=== PATIENT | male | born 1950 | race Caucasian/White ===

== ENCOUNTER → 2016-02-20 | Outpatient (CLI) | payer BC ==
[~2016-02-20] MED LIST: APIX1TAB3 PO; ATEN100T PO; CHOL100027 PO; CNT PO; CRDCD180 PO; CRFUDL PO; CYAN500T13 PO; DILT-113 PO; FLV1 PO; FRS/40 PO; FURO40TA3 PO; IPRA1AER2 INH; LBR25 PO; LISI-729 PO; LISI20TA3 PO; LSX20 PO; MCRK20 PO; METO5TAB25 PO; MISC1CAP60 PO; MULT-506 PO; NCDT21X TOP; NICO21DI4 TOP; PANT40TA PO; POTA-65 PO; POTA20TA16 PO; PRED10TA PO; PRT/40 PO; PRT40 PO; SODI1TAB PO; SPR25 PO; TNR50 PO; ZRX5 PO
[2016-02-20 12:57] LABS: BLOOD UREA NITROGEN 4 mg/dl (7-18); BUN/CREATININE RATIO 6.5 (10-20); CALCIUM 8.6 mg/dl (8.5-10.1); CARBON DIOXIDE 28 mmol/L (21-32); CHLORIDE 96 mmol/L (98-107); CREATININE 0.54 mg/dl (0.60-1.40); GLUCOSE 93 mg/dl (70-99); PHOSPHORUS 3.5 mg/dl (2.5-4.9); POTASSIUM 4.2 mmol/L (3.5-5.1); SODIUM 134 mmol/L (136-145)
== END | disposition home or self-care (01) ==
LOC: C.LABBFT 11:34
PROVIDERS: ATTEND Internal Medicine Nephrology
DX: E87.1 Hypo-osmolality and hyponatremia (principal)

== ENCOUNTER → 2016-04-17 | Outpatient (CLI) | payer BC ==
[~2016-04-17] MED LIST changes: +PANT40TA2 PO; -PRT/40 PO
[2016-04-17 17:33] LABS: BASO % 1.6 %; BASO ABS # 0.09 K/uL (0-0.2); COMPLETE YES; EOS % 3.2 %; IG% 0.2 %; LYMPH % 29.4 %; LYMPH ABS # 1.65 K/uL (1.2-3.4); MEAN CELL VOLUME 95.4 fL (80-100); MEAN CORPUSCULAR HEMOGLOBIN 33.5 pg (25-34); MEAN CORPUSCULAR HGB CONC 35.2 g/dl (32-36); MEAN PLATELET VOLUME 10.8 fL (7.4-10.4); NEUT % 49.6 %; PLATELET COUNT 174 K/uL (130-400); RED BLOOD COUNT 3.25 M/uL (4.7-6.1); WHITE BLOOD COUNT 5.61 K/uL (4.8-10.8)
[2016-04-17 18:19] LABS: BLOOD UREA NITROGEN 5 mg/dl (7-18); BUN/CREATININE RATIO 8.8 (10-20); CALCIUM 8.3 mg/dl (8.5-10.1); CARBON DIOXIDE 24 mmol/L (21-32); CHLORIDE 93 mmol/L (98-107); CREATININE 0.53 mg/dl (0.60-1.40); GLUCOSE 93 mg/dl (70-99); PHOSPHORUS 3.3 mg/dl (2.5-4.9); POTASSIUM 4.2 mmol/L (3.5-5.1); SODIUM 130 mmol/L (136-145)
== END | disposition home or self-care (01) ==
LOC: C.LABBFT 14:57
PROVIDERS: ATTEND Internal Medicine Nephrology
DX: E87.1 Hypo-osmolality and hyponatremia (principal); R19.5 Other fecal abnormalities

== ENCOUNTER 2016-04-23 13:40 | Inpatient (IN) | payer BC, OTHER ==
[~2016-04-23] VITALS: Ht 170.2 cm; Wt 117.2 kg
[2016-04-23] VITALS (10 sets, daily range): BP systolic 103–121; BP diastolic 59–84; PULSE 98–115; TEMP 36.5–37.2; O2SAT 98–100; Ht 170.2 cm; Wt 117.2 kg
[~2016-04-23 13:40] MED LIST changes: -ATEN100T PO; -CNT PO; -CRDCD180 PO; -DILT-113 PO; -FRS/40 PO; -FURO40TA3 PO; -IPRA1AER2 INH; -LISI20TA3 PO; -LSX20 PO; -MCRK20 PO; -METO5TAB25 PO; -MULT-506 PO; -NCDT21X TOP; -NICO21DI4 TOP; -PANT40TA PO; -PANT40TA2 PO; -POTA-65 PO; -POTA20TA16 PO; -PRED10TA PO; -PRT40 PO; -SODI1TAB PO; -SPR25 PO; -ZRX5 PO
[2016-04-23] MEDS ORDERED: LSX20 PO (13:52)
[2016-04-23] MEDS ORDERED: ALBUT/IPRATROP 3MG/0.5MG NEB 3 ML VIAL INH STA (14:04)
--- NOTE | 2016-04-23 14:16 | DIAGNOSTIC IMAGING REPORT ---
CHEST ONE VIEW PORTABLE HISTORY: Short of breath. COMPARISON: Chest 01/29/2015. FINDINGS: No pleural effusions. No pneumothorax. There are few punctate calcified granuloma seen within the right lower lobe. The lungs are otherwise clear. The heart is mildly enlarged. This remains unchanged. IMPRESSION: Stable mild cardiomegaly. No acute process within the chest. Electronically signed by: Alek Roblero M.D. 04/23/2016 2:15 PM Dictated Date/Time: 04/23/2016 2:14 PM
[2016-04-23 14:25] LABS: INR 1.4 (0.9-1.1); PROTHROMBIN TIME (PATIENT) 14.9 SECONDS (9.0-12.0)
[2016-04-23 14:30] LABS: HEMATOCRIT 20.8 % (42-52); MEAN CELL VOLUME 95.9 fL (80-100); MEAN CORPUSCULAR HEMOGLOBIN 33.6 pg (25-34); MEAN CORPUSCULAR HGB CONC 35.1 g/dl (32-36); MEAN PLATELET VOLUME 9.9 fL (7.4-10.4); PLATELET COUNT 187 K/uL (130-400); RED BLOOD COUNT 2.17 M/uL (4.7-6.1); WHITE BLOOD COUNT 7.26 K/uL (4.8-10.8)
[2016-04-23 14:36] LABS: ALT/SGPT 34 U/L (12-78); BLOOD UREA NITROGEN 13 mg/dl (7-18); BUN/CREATININE RATIO 19.9 (10-20); CALCIUM 8.1 mg/dl (8.5-10.1); CARBON DIOXIDE 26 mmol/L (21-32); CHLORIDE 94 mmol/L (98-107); CREATININE 0.67 mg/dl (0.60-1.40); GLUCOSE 122 mg/dl (70-99); POTASSIUM 4.3 mmol/L (3.5-5.1); SODIUM 130 mmol/L (136-145)
[2016-04-23] MEDS ORDERED: SODIUM CHLORIDE 0.9% 1000ML 1,000 ML IV STA (14:36)
[2016-04-23 14:39] LABS: ALB/GLOB RATIO 0.8 (0.9-2); ALKALINE PHOSPHATASE 112 U/L (45-117); AST/SGOT 66 U/L (15-37)
[2016-04-23 14:53] LABS: BASO % 0.7 %; BASO ABS # 0.05 K/uL (0-0.2); COMPLETE YES; GIANT PLATELETS 1+; IG% 0.3 %; LYMPH % 15.4 %; LYMPH ABS # 1.12 K/uL (1.2-3.4); MONO % 11.2 %; NEUT % 71.4 %; POLYCHROMASIA 1+
--- NOTE | 2016-04-23 14:55 | EMERGENCY ROOM VISIT NOTE ---
History Report prepared by Nick: Linda Vazquez Under the Supervision of: Dr. José Miguel Falcon M.D. First contact with patient: 14:36 Chief Complaint: SHORTNESS OF BREATH Stated Complaint: SOB Nursing Triage Summary: pt. has felt SOB for months, cough, pt. doctor told him to make appt. or come to ed pt. was suspsed to have colonoscopy yesterday, reports dark stools, has been rescheduled for may 09, History of Present Illness The patient is a 65 year old male who presents to the Emergency Room with complaints of worsening shortness of breath over the past several months. It is worse with exertion. He has difficulty walking around secondary to his breathing difficulties. He also complains of a somewhat increased cough, lightheadedness and black stool. He notes that he had a bowel movement that was "jet black" this morning. His stool this morning was the darkest it has been since the onset of his symptoms. The patient told his PCP about his symptoms and was referred to the ER. The patient is on Eliquis for a history of a-fib. He takes the Eliquis twice a day and did take his dose this morning, but has not taken his second dose. He does not use Prilosec or Zantac. He reports a history of anemia and GI bleeding. Source of History: patient Onset: several months ago Position: other (respiratory) Quality: other (shortness of breath) Timing: worsening Modifying Factors (Worsening): exertion Associated Symptoms: + cough, + melena Note: Other symptoms: lightheadedness Review of Systems See HPI for pertinent positives & negatives. A total of 10 systems reviewed and were otherwise negative. Past Medical & Surgical Medical Problems: (1) Atrial Fibrillation (2) Cellulitis of leg (3) Chest pain (4) COPD exacerbation (5) Hypertension Nos (6) Pure Hypercholesterolem (7) Tobacco Use Disorder Family History Hypertension Social History Smoking Status: Current Every Day Smoker Alcohol Use: none Drug Use: none Marital Status: Occupation Status: employed Current/Historical Medications Scheduled Apixaban (Eliquis), 5 MG PO BIDM Atenolol (Tenormin), 100 MG PO BID Folic Acid (Folic Acid), 7 MG PO QAM Furosemide (Furosemide), 20 MG PO BID Lisinopril (Zestril), 5 MG PO DAILY Allergies Coded Allergies: No Known Allergies (Unverified , 01/29/15) Physical Exam Vital Signs Date Time Temp Pulse Resp B/P Pulse Ox O2 Delivery O2 Flow Rate FiO2 04/23/16 16:45 36.7 102 18 115/75 100 04/23/16 16:22 36.9 100 16 103/69 99 04/23/16 15:39 86 16 111/62 99 Room Air 04/23/16 14:24 37.0 112 28 104/57 95 Room Air 04/23/16 14:24 37.0 112 25 104/57 99 Room Air 04/23/16 14:24 100 Room Air 04/23/16 13:59 92 Physical Exam GENERAL: Patient is in no acute distress. HEENT: No acute trauma, normocephalic atraumatic, mucous membranes moist, no nasal congestion, no scleral icterus. NECK: No stridor, no adenopathy, no meningismus, trachea is midline. LUNGS: Clear to auscultation bilaterally, no wheeze, no rhonchi, breath sounds equal. HEART: Irregular rhythm with a regular rate, no murmurs. ABDOMEN: Soft, nontender, bowel sounds positive, no hernias, no peritonitis. RECTAL: Black stool, heme positive by testing. EXTREMITIES: No cyanosis, mild bilateral pedal edema with chronic skin change, no acute cellulitis, full range of motion of all the joints without pain or difficulty, no signs for acute trauma. NEUROLOGIC: Oriented x 3, no acute motor or sensory deficits, no focal weakness. SKIN: No rash, no jaundice, no diaphoresis. Medical Decision & Procedures ER Provider Diagnostic Interpretation: Radiology results and stated below per my review and radiologist interpretation: CHEST ONE VIEW PORTABLE HISTORY: Short of breath. COMPARISON: Chest 01/29/2015. FINDINGS: No pleural effusions. No pneumothorax. There are few punctate calcified granuloma seen within the right lower lobe. The lungs are otherwise clear. The heart is mildly enlarged. This remains unchanged. IMPRESSION: Stable mild cardiomegaly. No acute process within the chest. Electronically signed by: Alek Roblero M.D. 04/23/2016 2:15 PM Dictated Date/Time: 04/23/2016 2:14 PM Laboratory Results 04/23/16 14:00 Red Blood Count 2.17, Mean Corpuscular Volume 95.9, Mean Corpuscular Hemoglobin 33.6, Mean Corpuscular Hemoglobin Concent 35.1, Mean Platelet Volume 9.9, Neutrophils (%) (Auto) 71.4, Lymphocytes (%) (Auto) 15.4, Monocytes (%) (Auto) 11.2, Eosinophils (%) (Auto) 1.0, Basophils (%) (Auto) 0.7, Neutrophils # (Auto ) 5.19, Lymphocytes # (Auto) 1.12, Monocytes # (Auto) 0.81, Eosinophils # (Auto ) 0.07, Basophils # (Auto) 0.05 04/23/16 14:00 Test 04/23/16 14:00 04/23/16 14:09 White Blood Count 7.26 K/uL (4.8-10.8) Red Blood Count 2.17 M/uL (4.7-6.1) Hemoglobin 7.3 g/dL (14.0-18.0) Hematocrit 20.8 % (42-52) Mean Corpuscular Volume 95.9 fL (80-100) Mean Corpuscular Hemoglobin 33.6 pg (25-34) Mean Corpuscular Hemoglobin Concent 35.1 g/dl (32-36) Platelet Count 187 K/uL (130-400) Mean Platelet Volume 9.9 fL (7.4-10.4) Neutrophils (%) (Auto) 71.4 % Lymphocytes (%) (Auto) 15.4 % Monocytes (%) (Auto) 11.2 % Eosinophils (%) (Auto) 1.0 % Basophils (%) (Auto) 0.7 % Neutrophils # (Auto) 5.19 K/uL (1.4-6.5) Lymphocytes # (Auto) 1.12 K/uL (1.2-3.4) Monocytes # (Auto) 0.81 K/uL (0.11-0.59) Eosinophils # (Auto) 0.07 K/uL (0-0.5) Basophils # (Auto) 0.05 K/uL (0-0.2) RDW Standard Deviation 50.9 fL (36.4-46.3) RDW Coefficient of Variation 14.6 % (11.5-14.5) Immature Granulocyte % (Auto) 0.3 % Immature Granulocyte # (Auto) 0.02 K/uL (0.00-0.02) Giant Platelets 1+ Polychromasia 1+ Basophilic Stippling 1+ Prothrombin Time 14.9 SECONDS (9.0-12.0) Prothromb Time International Ratio 1.4 (0.9-1.1) Activated Partial Thromboplast Time 27.0 SECONDS (21.0-31.0) Partial Thromboplastin Ratio 1.0 Anion Gap 10.0 mmol/L (3-11) Est Creatinine Clear Calc Drug Dose 131.1 ml/min Estimated GFR () 116.0 Estimated GFR (Non- 100.1 BUN/Creatinine Ratio 19.9 (10-20) Calcium Level 8.1 mg/dl (8.5-10.1) Total Bilirubin 1.5 mg/dl (0.2-1) Aspartate Amino Transf (AST/SGOT) 66 U/L (15-37) Alanine Aminotransferase (ALT/SGPT) 34 U/L (12-78) Alkaline Phosphatase 112 U/L (45-117) Total Protein 6.1 gm/dl (6.4-8.2) Albumin 2.7 gm/dl (3.4-5.0) Globulin 3.4 gm/dl (2.5-4.0) Albumin/Globulin Ratio 0.8 (0.9-2) Bedside Troponin I 0.000 ng/ml (0-0.045) Laboratory results reviewed by me. Medications Administered Medications (Trade) Dose Ordered Sig/Anali Route Start Time Stop Time Status Last Admin Dose Admin Sodium Chloride 1,000 ml @ 125 mls/hr Q8H STAT IV 04/23/16 14:36 04/23/16 22:35 04/23/16 15:36 125 MLS/HR Pantoprazole Sodium 80 mg/ Dextrose 120 ml @ 480 mls/hr 1500 IV 04/23/16 15:00 04/23/16 15:14 DC 04/23/16 15:37 480 MLS/HR Pantoprazole Sodium/Dextrose (Protonix Inj/D5 100ml) 100 ml @ 20 mls/hr Q5H IV 04/23/16 15:15 04/23/16 20:14 04/23/16 16:04 20 MLS/HR ECG Indication: SOB/dyspnea Rate (beats per minute): 101 Rhythm: atrial fibrillation Findings: no acute ischemic change, no ectopy ED Course 1436: Ordered Protonix IV Bolus/Drip 1 ea IV, NSS 1000 ml @ 125 mls/hr IV. 1441: The patient was evaluated in room A2. A complete history and physical exam was performed. I discussed results and treatment plan with the patient. He verbalizes agreement and understanding. The patient will be evaluated for further management. 1500: I discussed the case with Dr. Jacob CARRILLO Hospitalist. The patient will be evaluated for further management. Ordered Pantoprazole Sodium 80 mg/Dextrose 120 ml @ 480 mls/hr IV. 1515: Ordered Pantoprazole Sodium 40 mg/Dextrose 100 ml @ 20 mls/hr IV. Medical Decision Differential includes but is not limited to cardiac ischemia, anemia, electrolyte imbalance, dehydration, infection, dysrhythmia, upper or lower GI bleeding. There is no leukocytosis but the patient is anemic with a hemoglobin of around 7. A mild coagulopathy is present, likely from his Eliquis use. A mild hepatitis was noted. Renal panel testing shows a mild hyponatremia, no renal failure. EKG shows atrial fibrillation, no acute ischemia. Cardiac enzyme testing 1 is not suggestive of acute cardiac injury. Chest x-ray does not show pneumonia or CHF. On exam, stool testing was heme positive. His stool was black in color. The patient presents with shortness of breath and weakness. He feels dizzy at times when standing. He is anemic and suffering from a GI bleed, I think this explains his findings. He did receive IV Protonix. He was ordered for blood for transfusion. One unit was ordered to be given while here in the emergency room. He did sign the consent for the blood transfusion. I talked to the patient, I talked with case management. The on-call hospitalist was consulted. Admission/observation is warranted. Consults Time Called: 1450 Consulting Physician: Dr. Jacob CARRILLO Hospitalist Returned Call: 1500 I discussed the case with him. The patient will be evaluated for further management. Impression Primary Impression: Anemia Additional Impressions: GI bleed Weakness Shortness of breath Critical Care I have personally spent greater than35 minutes of critical care time in the direct management of this patient. This includes bedside care, interpretation of diagnostic studies, and testing, discussion with consultants, patient, and family members, and other required patient management activities. This 35 minutes is in excess of all separately billable procedures. Scribe Attestation The scribe's documentation has been prepared under my direction and personally reviewed by me in its entirety. I confirm that the note above accurately reflects all work, treatment, procedures, and medical decision making performed by me. Departure Information Dispostion Being Evaluated By Hospitalist Patient Instructions My [facility] Problem Qualifiers
[2016-04-23] MEDS ORDERED: PANTOprazole INJ 80 MG in DEXTROSE 5% 100ML IV SCH (15:00)
[2016-04-23] MEDS ORDERED: PANTOprazole INJ 40 MG in DEXTROSE 5% 100ML 90 ML IV SCH (15:30)
[2016-04-23] MEDS ORDERED: ACETAMINOPHEN 325 MG TAB PO PRN (15:30)
[2016-04-23] MEDS ORDERED: LORAZEPAM 2 MG/ML 1 ML VIAL IV PRN (15:30)
[2016-04-23] MEDS ORDERED: MAGNESIUM HYDROXIDE SUSP 30 ML UDC PO PRN (15:30)
[2016-04-23] MEDS ORDERED: POLYETHYLENE (MIRALAX) 17 GM PACK PO PRN (15:30)
[2016-04-23] MEDS ORDERED: ALUMINUM/MAGNESIUM/SIMETH (MAALOX MAX) 30 ML UDC PO PRN (15:30)
[2016-04-23] MEDS ORDERED: ONDANSETRON INJ 2 MG/ML 2 ML VIAL IV PRN (15:30)
[2016-04-23] MEDS ORDERED: METOPROLOL TARTRATE 1 MG/ML VIAL IV PRN (15:45)
--- NOTE | 2016-04-23 15:58 | History and Physical ---
History & Physical Date & Time of Service: Apr 23, 2016 at 15:40 Chief Complaint: SOB Primary Care Physician: Erma Santos MD History of Present Illness Source: patient Mr. Zarco is a 65 y/o male with PMHx of Persistent Atrial Fibrillation, HTN, Chronic Hyponatremia, Chronic Venous Stasis, and Alcohol Abuse/Tobacco Abuse who presented to the ED complaining of progressive shortness of breath for several months and melena for approximately one month. Shortness of breath is minimally present at rest and largely present with exertion. Does report an associated intermittently productive cough of yellow/green sputum which has been progressively improving. Associated nausea with one episode of emesis yesterday but denies hematemesis or coffee-ground appearance. He has also presented as an outpatient complaining of melena and has had heme-positive stool. He was scheduled for colonoscopy yesterday however he did not keep this appointment. This morning he notes "jet black" stool with associated bright red blood streaked in the stool. Associated shortness of breath on exertion and lightheadedness with ambulation. Symptoms improve with rest. He has had an EGD in 2014 which revealed a normal esophagus and gastritis. Per patient report he has had a colonoscopy in the past that was only significant for polyps. Patient abuses alcohol and has done so for many years. He currently reports drinking 5-10 large cans of beer nearly daily. He reports his last drink was yesterday and denies history of withdrawal symptoms because he drinks only light beer. He denies chronic NSAID use or Pepto-Bismol. He denies known personal history or family history of GI disorders, stomach cancer, colon cancer. He denies unintentional weight loss or night sweats. He denies fever/ chills, chest pain, abdominal pain, or dysuria. In the ED, hemoglobin noted to be 7.3. Patient is mildly tachycardic with mild hypotension. EKG with atrial fibrillation and T-wave inversion in lead III and aVF. INR 1.4. CXR reveals stable cardiomegaly but no acute processes. He was started on a Protonix bolus and drip and hydrated with NSS. Patient reports last dose of Eliquis was this AM. He will be admitted to telemetry for further evaluation and care. Past Medical/Surgical History Medical Problems: (1) Atrial Fibrillation Permanent Comment: Atrial fibrillation treated with direct cardioversion on November 20, 2010 Status: Resolved (2) Hypertension Nos Status: Chronic (3) Pure Hypercholesterolem Status: Chronic (4) Tobacco Use Disorder Status: Chronic Family History Hypertension Social History Smoking Status: Current Every Day Smoker Alcohol Use: heavy (5-10 large cans of beer nearly daily) Drug Use: none Marital Status: Housing status: lives with family Occupational Status: employed Immunizations History of Influenza Vaccine: N/A History of Tetanus Vaccine?: 4-5 YEARS AGO History of Pneumococcal: Yes History of Hepatitis B Vaccine: No Multi-Drug Resistant Organisms History of MDRO: No Allergies Coded Allergies: No Known Allergies (Unverified , 01/29/15) Home Medications Scheduled Apixaban (Eliquis), 5 MG PO BIDM Atenolol (Tenormin), 100 MG PO BID Folic Acid (Folic Acid), 7 MG PO QAM Furosemide (Furosemide), 20 MG PO BID Lisinopril (Zestril), 5 MG PO DAILY Review of Systems Constitutional: + chills, + fatigue, No fever, No sweats, No weight loss Eyes: No worsening of vision ENT: No nasal symptoms, No sore throat, No trouble swallowing Respiratory: + cough, + dyspnea on exertion, + sputum, No dyspnea at rest Cardiovascular: No chest pain, No palpitations Abdomen: + GI bleeding (melena), + nausea (resolved), + vomiting (x 1 episode without hematemesis ), No pain Musculoskeletal: No calf pain, No swelling Genitourinary - Male: No dysuria, No urinary frequency Neurologic: + vertigo (with standing) Integumentary: No itch, No rash Physical Exam Vital Signs Date Time Temp Pulse Resp B/P Pulse Ox O2 Delivery O2 Flow Rate FiO2 04/23/16 14:24 37.0 112 28 104/57 95 Room Air 04/23/16 14:24 37.0 112 25 104/57 99 Room Air 04/23/16 14:24 100 Room Air 04/23/16 13:59 92 General Appearance: WD/WN, no apparent distress Head: normocephalic, atraumatic Eyes: sclerae normal ENT: hearing grossly normal Neck: supple, no JVD, trachea midline Respiratory/Chest: lungs clear, normal breath sounds, no respiratory distress, no accessory muscle use Cardiovascular: no gallop, no murmur, + irregularly irregular Abdomen/GI: normal bowel sounds, non tender, soft, + distended Back: normal inspection, no CVA tenderness Extremities/Musculoskelatal: no calf tenderness, no pedal edema, + pertinent finding Neurologic/Psych: alert, oriented x 3 Skin: normal color, + pallor Diagnostics Laboratory Results Results Past 24 Hours Test 04/23/16 14:00 04/23/16 14:09 Range/Units White Blood Count 7.26 4.8-10.8 K/uL Red Blood Count 2.17 4.7-6.1 M/uL Hemoglobin 7.3 14.0-18.0 g/dL Hematocrit 20.8 42-52 % Mean Corpuscular Volume 95.9 80-100 fL Mean Corpuscular Hemoglobin 33.6 25-34 pg Mean Corpuscular Hemoglobin Concent 35.1 32-36 g/dl Platelet Count 187 130-400 K/uL Mean Platelet Volume 9.9 7.4-10.4 fL Neutrophils (%) (Auto) 71.4 % Lymphocytes (%) (Auto) 15.4 % Monocytes (%) (Auto) 11.2 % Eosinophils (%) (Auto) 1.0 % Basophils (%) (Auto) 0.7 % Neutrophils # (Auto) 5.19 1.4-6.5 K/uL Lymphocytes # (Auto) 1.12 1.2-3.4 K/uL Monocytes # (Auto) 0.81 0.11-0.59 K/uL Eosinophils # (Auto) 0.07 0-0.5 K/uL Basophils # (Auto) 0.05 0-0.2 K/uL RDW Standard Deviation 50.9 36.4-46.3 fL RDW Coefficient of Variation 14.6 11.5-14.5 % Immature Granulocyte % (Auto) 0.3 % Immature Granulocyte # (Auto) 0.02 0.00-0.02 K/uL Giant Platelets 1+ Polychromasia 1+ Basophilic Stippling 1+ Prothrombin Time 14.9 9.0-12.0 SECONDS Prothromb Time International Ratio 1.4 0.9-1.1 Activated Partial Thromboplast Time 27.0 21.0-31.0 SECONDS Partial Thromboplastin Ratio 1.0 Sodium Level 130 136-145 mmol/L Potassium Level 4.3 3.5-5.1 mmol/L Chloride Level 94 98-107 mmol/L Carbon Dioxide Level 26 21-32 mmol/L Anion Gap 10.0 3-11 mmol/L Blood Urea Nitrogen 13 7-18 mg/dl Creatinine 0.67 0.60-1.40 mg/dl Est Creatinine Clear Calc Drug Dose 131.1 ml/min Estimated GFR () 116.0 Estimated GFR (Non- 100.1 BUN/Creatinine Ratio 19.9 10-20 Random Glucose 122 70-99 mg/dl Calcium Level 8.1 8.5-10.1 mg/dl Total Bilirubin 1.5 0.2-1 mg/dl Aspartate Amino Transf (AST/SGOT) 66 15-37 U/L Alanine Aminotransferase (ALT/SGPT) 34 12-78 U/L Alkaline Phosphatase 112 45-117 U/L Total Protein 6.1 6.4-8.2 gm/dl Albumin 2.7 3.4-5.0 gm/dl Globulin 3.4 2.5-4.0 gm/dl Albumin/Globulin Ratio 0.8 0.9-2 Bedside Troponin I 0.000 0-0.045 ng/ml Diagnostic Radiology CHEST ONE VIEW PORTABLE HISTORY: Short of breath. COMPARISON: Chest 01/29/2015. FINDINGS: No pleural effusions. No pneumothorax. There are few punctate calcified granuloma seen within the right lower lobe. The lungs are otherwise clear. The heart is mildly enlarged. This remains unchanged. IMPRESSION: Stable mild cardiomegaly. No acute process within the chest. EKG Atrial fibrillation with rapid ventricular response with premature ventricular or aberrantly conducted complexes Possible Inferior infarct , age undetermined Abnormal ECG When compared with ECG of 31-JAN-2015 07:07, Borderline criteria for Inferior infarct are now Present Confirmed by ALYCE GREEN ([id number]) on 04/23/2016 2:39:03 PM Impression Assessment and Plan Mr. Zarco is a 65 y/o male with PMHx of Persistent Atrial Fibrillation, HTN, Chronic Hyponatremia, Chronic Venous Stasis, and Alcohol Abuse/Tobacco Abuse who presented to the ED complaining of progressive shortness of breath for several months and melena for approximately one month. Acute Blood Loss Anemia 2/2 Melena: - NPO - Protonix gtt - Transfuse 2 units PRBC - patient currently symptomatic with T-wave inversion in lead III and aVF - Serial H&H and serial cardiac enzymes - Consult gastroenterology - probable need for EGD - question of esophageal varices? Persistent Atrial Fibrillation: - Hold atenolol 100 mg BID and use metoprolol IV 5 mg PRN for rate control - Hold Eliquis 5 mg BID due to GI bleeding Hypertension: - Hold lisinopril 5 mg daily as patient currently hypotensive Chronic Hyponatremia: - Follows with nephrology - believe patient is normally euvolemic or hypervolemic and may be secondary to alcohol consumption - Trend BMP Chronic Venous Stasis and Bilateral Lower Extremity Edema: - Hold furosemide 20 mg BID initially as patient is hypotensive Alcohol Abuse/Tobacco Abuse: - CT Abd/Pelvis (Nov 2015) - significant for hepatic steatosis without evidence of hepatomegaly; hepatic veins and portal veins patent - AWSS at risk protocol - Outpatient records question possible COPD but no official diagnosis - Duonebs PRN DVT Prophylaxis: - FELIX/SCDs - Withhold chemical prophylaxis due to GI bleeding Code Status: FULL RESUSCITATION Disposition: - Patient resides at home with no anticipated home needs Level of Care Telemetry Resuscitation Status FULL RESUSCITATION VTE Prophylaxis VTE Risk Assessment Done? Y/N: Yes Risk Level: Moderate Given or contraindicated: Divine Stockings, SCD's Assessment and Plan Attending Addendum: I have physically seen and examined this patient, have directed their medical care, have supervised the PA's activity, and agree with the H&P as noted above, with the following changes: The patient is awake, alert and oriented 3, normocephalic and atraumatic, lying in bed and in no acute distress. HEENT--PERRL, EOMI, mucous membranes and oropharynx dry. Neck--supple, no JVD or bruits, thyroid normal, trachea midline, no adenopathy. Heart--normal S1 and S2, no extra beats, no murmurs, rubs or gallops. Lungs--wheezes or rhonchi bilaterally, no respiratory distress, no accessory muscle use. Abdomen--normal bowel sounds and soft, nontender and obese and tympanitic., Extremities--no cyanosis, clubbing. There is bilaterally 1+ lower extremity Edema. There are good distal pulses b/l. Dermatologic--normal skin turgor, normal color, warm and dry, no abnormal lymph nodes, no rash. Neurologic--cranial nerves II through XII grossly intact, motor and sensory examination normal. Rheumatologic--normal range of motion, nontender, muscles and joints. Psychiatric--normal affect. Assessment and Plan: Upper GI bleed causing acute blood loss anemia--patient will be admitted to telemetry unit in a nothing by mouth state. Continue the Protonix drip started emergency department. We'll transfuse 2 units packed red blood cells now, and then repeat H&H. We'll check an H&H every 6 hours. We'll consult GI for EGD. Suspect the patient may also have esophageal varices due to significant alcohol use history, but this bleeding may be secondary to gastritis or gastric ulcer. Atrial fibrillation/hypertension--hold atenolol 100 mg by mouth twice a day, lisinopril 5 mg by mouth daily, Eliquis 5 mg by mouth twice a day. Place on metoprolol 5 mg IV every 4 hours when necessary. Chronic venous stasis/lower extremity edema--hold furosemide 20 mg by mouth twice a day due to associated hypotension above. Alcohol use history--patient will need to be monitored for withdrawal if the admission becomes lengthy. COPD--have do nebs available to use when necessary.
[2016-04-23] MEDS: PANTOprazole INJ 40 MG in DEXTROSE 5% 100ML IV SCH ×2 (16:04→20:22)
[2016-04-23 17:18] LABS: MAGNESIUM 2.1 mg/dl (1.8-2.4)
[2016-04-23] MEDS: SODIUM CHLORIDE 0.9% 1000ML 1,000 ML IV SCH ×2 (23:41→23:42)
[2016-04-24] VITALS (13 sets, daily range): BP systolic 108–156; BP diastolic 67–86; PULSE 69–123; TEMP 36.4–36.6; O2SAT 96–100
[2016-04-24 01:19] LABS: HEMATOCRIT 23.5 % (42-52)
[2016-04-24] MEDS: PANTOprazole INJ 40 MG in DEXTROSE 5% 100ML IV SCH ×5 (01:22→21:22)
[2016-04-24 01:50] LABS: CKMB/CK RATIO 3.3 (0-3.0)
[2016-04-24 06:48] LABS: HEMATOCRIT 23.3 % (42-52); MEAN CORPUSCULAR HEMOGLOBIN 31.6 pg (25-34); MEAN CORPUSCULAR HGB CONC 34.8 g/dl (32-36); MEAN PLATELET VOLUME 9.8 fL (7.4-10.4); PLATELET COUNT 146 K/uL (130-400); RED BLOOD COUNT 2.56 M/uL (4.7-6.1); WHITE BLOOD COUNT 5.59 K/uL (4.8-10.8)
[2016-04-24 07:18] LABS: CALCIUM 7.9 mg/dl (8.5-10.1); CREATININE 0.59 mg/dl (0.60-1.40); POTASSIUM 4.1 mmol/L (3.5-5.1)
--- NOTE | 2016-04-24 08:08 | Hospitalist Progress Note ---
Hospitalist Progress Note Date of Service Apr 24, 2016. Subjective Pt evaluation today including: conversation w/ patient, physical exam, chart review, lab review, review of studies, review of inpatient medication list Voiding: no voiding problems, no incontinence Patient states he is feeling well. +SOB/wheezing. +nonproductive cough. + fatigue. +weakness. +melena. NPO status pending GI consult and ?intervention. Patient denies any fever, chills, sweats, lightheadedness, dizziness, vision changes, CP, palpitations, edema, abdominal pain, nausea, vomiting, diarrhea, urinary symptoms, muscle/joint pain, anxiety/depression, active bleeding, or new skin discoloration/changes. Medications Current Inpatient Medications Medications (Trade) Dose Ordered Sig/Anali Route Start Time Stop Time Status Last Admin Dose Admin Pantoprazole Sodium 40 mg/ Dextrose 100 ml @ 20 mls/hr Q5H IV 04/23/16 15:15 05/23/16 15:14 04/24/16 05:58 20 MLS/HR Sodium Chloride (Nss 1000ml) 1,000 ml @ 100 mls/hr Q10H IV 04/23/16 15:26 05/23/16 15:25 04/23/16 23:42 100 MLS/HR Acetaminophen (Tylenol Tab) 650 mg Q4H PRN PO 04/23/16 15:30 05/23/16 15:29 Al Hydrox/Mg Hydrox/Simethicone (Maalox Max Susp) 15 ml Q4H PRN PO 04/23/16 15:30 05/23/16 15:29 Magnesium Hydroxide (Milk Of Magnesia Susp) 30 ml Q12H PRN PO 04/23/16 15:30 05/23/16 15:29 Ondansetron HCl (Zofran Inj) 4 mg Q6H PRN IV 04/23/16 15:30 05/23/16 15:29 Polyethylene (Miralax Powder Packet) 17 gm DAILY PRN PO 04/23/16 15:30 05/23/16 15:29 Lorazepam (Ativan Inj) 1 mg ONE PRN IV 04/23/16 15:30 05/07/16 15:29 Metoprolol Tartrate (Lopressor Iv) 5 mg Q4 PRN IV 04/23/16 15:45 4/14/17 15:44 Albuterol/ Ipratropium 3 ml 3 ml Q2H PRN INH 04/23/16 16:30 05/23/16 16:29 Multivitamins/ Thiamine HCl/ Folic Acid/Sodium Chloride (Mvi Infusion Inj/Vitamin B-1 Inj/Folvite Inj/ Nss 1000ml) 1,011.2 ml @ 150 mls/ hr DAILY IV 04/24/16 09:00 05/24/16 08:59 04/24/16 08:27 150 MLS/HR Objective Vital Signs Date Time Temp Pulse Resp B/P Pulse Ox O2 Delivery O2 Flow Rate FiO2 04/24/16 07:49 36.4 100 18 118/81 100 2.0 04/24/16 04:00 Room Air 04/24/16 03:58 36.6 103 18 108/70 96 Room Air 04/24/16 00:21 36.5 120 18 156/70 98 Room Air 04/23/16 23:15 Room Air 04/23/16 22:30 36.7 115 20 117/75 99 04/23/16 21:30 36.5 110 20 114/70 99 04/23/16 21:00 36.5 99 20 121/84 98 04/23/16 20:45 36.6 105 20 116/79 99 04/23/16 20:30 36.8 98 20 115/68 99 04/23/16 20:00 Room Air 04/23/16 19:15 36.5 102 18 119/65 99 04/23/16 18:15 100 Room Air 04/23/16 18:15 36.5 104 18 118/75 100 04/23/16 17:17 99 20 119/59 04/23/16 17:15 37.2 99 20 119/59 04/23/16 16:45 36.7 102 18 115/75 100 04/23/16 16:22 36.9 100 16 103/69 99 04/23/16 15:39 86 16 111/62 99 Room Air 04/23/16 14:24 37.0 112 28 104/57 95 Room Air 04/23/16 14:24 37.0 112 25 104/57 99 Room Air 04/23/16 14:24 100 Room Air 04/23/16 13:59 92 Physical Exam General Appearance: no apparent distress, + obese Eyes: normal inspection, PERRL ENT: hearing grossly normal Neck: supple Respiratory/Chest: no respiratory distress, no accessory muscle use, + decreased breath sounds (bilateral lung bases ), + wheezing (diffuse expiratory wheezing throughout all lung moore ) Cardiovascular: + irregularly irregular (rate controlled ) Abdomen: normal bowel sounds, non tender, soft Extremities: no pedal edema, no calf tenderness, + pertinent finding (chronic stasis dermaitis changes noted on bilateral anterior shins ) 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: alert, normal mood/affect, oriented x 3 Skin: warm/dry, no rash, + pallor Laboratory Results Last 24 Hours Test 04/23/16 14:00 04/23/16 14:09 04/24/16 01:10 04/24/16 06:22 White Blood Count 7.26 K/uL 5.59 K/uL Red Blood Count 2.17 M/uL 2.56 M/uL Hemoglobin 7.3 g/dL 8.3 g/dL 8.1 g/dL Hematocrit 20.8 % 23.5 % 23.3 % Mean Corpuscular Volume 95.9 fL 91.0 fL Mean Corpuscular Hemoglobin 33.6 pg 31.6 pg Mean Corpuscular Hemoglobin Concent 35.1 g/dl 34.8 g/dl Platelet Count 187 K/uL 146 K/uL Mean Platelet Volume 9.9 fL 9.8 fL Neutrophils (%) (Auto) 71.4 % Lymphocytes (%) (Auto) 15.4 % Monocytes (%) (Auto) 11.2 % Eosinophils (%) (Auto) 1.0 % Basophils (%) (Auto) 0.7 % Neutrophils # (Auto) 5.19 K/uL Lymphocytes # (Auto) 1.12 K/uL Monocytes # (Auto) 0.81 K/uL Eosinophils # (Auto) 0.07 K/uL Basophils # (Auto) 0.05 K/uL RDW Standard Deviation 50.9 fL 52.9 fL RDW Coefficient of Variation 14.6 % 15.7 % Immature Granulocyte % (Auto) 0.3 % Immature Granulocyte # (Auto) 0.02 K/uL Giant Platelets 1+ Polychromasia 1+ Basophilic Stippling 1+ Prothrombin Time 14.9 SECONDS Prothromb Time International Ratio 1.4 Activated Partial Thromboplast Time 27.0 SECONDS Partial Thromboplastin Ratio 1.0 Sodium Level 130 mmol/L 134 mmol/L Potassium Level 4.3 mmol/L 4.1 mmol/L Chloride Level 94 mmol/L 100 mmol/L Carbon Dioxide Level 26 mmol/L 25 mmol/L Anion Gap 10.0 mmol/L 9.0 mmol/L Blood Urea Nitrogen 13 mg/dl 11 mg/dl Creatinine 0.67 mg/dl 0.59 mg/dl Est Creatinine Clear Calc Drug Dose 131.1 ml/min 151.5 ml/min Estimated GFR () 116.0 122.3 Estimated GFR (Non- 100.1 105.5 BUN/Creatinine Ratio 19.9 19.0 Random Glucose 122 mg/dl 100 mg/dl Calcium Level 8.1 mg/dl 7.9 mg/dl Magnesium Level 2.1 mg/dl 2.0 mg/dl Total Bilirubin 1.5 mg/dl Aspartate Amino Transf (AST/SGOT) 66 U/L Alanine Aminotransferase (ALT/SGPT) 34 U/L Alkaline Phosphatase 112 U/L Troponin I < 0.015 ng/ml < 0.015 ng/ml Total Protein 6.1 gm/dl Albumin 2.7 gm/dl Globulin 3.4 gm/dl Albumin/Globulin Ratio 0.8 Bedside Troponin I 0.000 ng/ml Total Creatine Kinase 141 U/L Creatine Kinase MB 4.7 ng/ml Creatine Kinase MB Ratio 3.3 Hepatitis C Antibody Screen NEG Assessment and Plan Mr. Zarco is a 65 y/o male with PMHx of Persistent Atrial Fibrillation, HTN, Chronic Hyponatremia, Chronic Venous Stasis, and Alcohol Abuse/Tobacco Abuse who presented to the ED complaining of progressive shortness of breath for several months and melena for approximately one month. Acute blood loss anemia 2/2 melena/?esophageal varices: - Admit tele for cardiac monitoring--> reviewed- a.fib w/ episodes of RVR - NPO - Protonix gtt - IV banana bag - Transfuse 2 units PRBC on 04/23 - Follow H&H - Trend cardiac enzymes- negative - Consult gastroenterology - appreciate recommendations -- EGD w/ Dr. Roman on 04/24 pending Persistent a.fib: - Hold Atenolol 100 mg BID and use Metoprolol IV 5 mg q12 hrs for rate control until tolerating PO - Hold Eliquis 5 mg BID due to GI bleeding Hypertension: - Hold Lisinopril 5 mg daily, secondary to hypotension Chronic hyponatremia: - Follows with nephrology - believe patient is normally euvolemic or hypervolemic and may be secondary to alcohol consumption - Trend BMP Chronic venous stasis and bilateral lower extremity edema: - Hold Furosemide 20 mg BID, secondary to hypotension Alcohol abuse/tobacco abuse: - CT Abd/Pelvis (Nov 2015) - significant for hepatic steatosis without evidence of hepatomegaly; hepatic veins and portal veins patent - AWSS at risk protocol - Outpatient records question possible COPD but no official diagnosis - Duonebs QID and q2 hrs PRN - O2 protocol, wean as tolerated--> does NOT wear O2 supplement at home DVT Prophylaxis: - FELIX/SCDs - Withhold chemical prophylaxis due to GI bleeding Code Status: FULL RESUSCITATION Disposition: - Patient resides at home with no anticipated home needs
[2016-04-24] MEDS: MULTI-VITAMIN INFUSION INJ 10 ML, THIAMINE HCL INJ 100 MG, FoLIC ACID INJ 1 MG in SODIU... IV SCH (08:27)
--- NOTE | 2016-04-24 10:02 | Gastrointestinal Consultation ---
Gastrointestinal Consultation Date of Consultation: Apr 24, 2016 Attending Physician: Dr. Rankin Consulting Physician: Dr. Roman/KATIANA Reese Reason for Consultation: Melena History of Present Illness Patient is a 65 year old male with a history of hypertension, atrial fibrillation requiring chronic anticoagulation as well as alcohol and tobacco abuse presenting with symptoms of shortness of breath, fatigue and melena which he reports have been ongoing intermittently for the past few months. He has been seen for symptoms as an outpatient and was scheduled for an outpatient colonoscopy. He was noted by his PCP to have heme positive stool. The patient does have a known history of gastric erosions which were diagnosed by Dr. Roman via upper endoscopy in July of 2014. His last colonoscopy was in 2012 and significant for diverticulosis as well as rectal polyp. He would have been due for routine colorectal surveillance next year. Again, testing was ordered due to heme positivity. The patient does consume 5-10 beers on a daily basis and has not continued PPI therapy as recommended by Dr. Roman as an outpatient. Denies any NSAID use. On arrival, he was noted to be profoundly anemic with a hemoglobin of 7.3. He was also tachycardic and hypotensive on admission. Renal panel was normal. The patient did receive 2 units of PRBCs and repeat H&H this morning was 8.1 and 23.3. A Protonix ggt has been initiated. He denies any current abdominal pain, nausea or vomiting or overt bleeding this morning. INR this morning was noted to be 1.4. Past Medical/Surgical History Medical Problems: (1) Anemia Status: Acute (2) GI bleed Status: Acute (3) Left sided chest pain Status: Acute (4) Shortness of breath Status: Acute (5) Weakness Status: Acute Past Medical History: 1. Atrial fibrillation 2. Hypertension 3. Hypercholesterolemia 4. Chronic alcohol and tobacco use 5. Gastric erosion 6. Diverticulosis 7. Rectal polyp Past Surgical History: 1. EGD 2. Complete colonoscopy Family History Hypertension Negative for GI malignancy or IBD Social History Smoking Status: Current Every Day Smoker Alcohol Use: heavy Drug Use: none Marital Status: Occupation Status: employed Allergies Coded Allergies: No Known Allergies (Unverified , 01/29/15) Current Medications Home Meds and Scripts Medications Dose Route/Sig Max Daily Dose Days Date Category Tenormin (Atenolol) 100 Mg Tab 100 Mg PO BID 04/23/16 Reported Furosemide 20 Mg Tab 20 Mg PO BID 04/23/16 Reported Folic Acid 1 Mg Tab 7 Mg PO QAM 10/17/14 Reported Zestril (Lisinopril) 5 Mg Tab 5 Mg PO DAILY 10/17/14 Reported Eliquis (Apixaban) 5 Mg Tab 5 Mg PO BIDM 07/16/14 Reported Review of Systems Constitutional: + fatigue, No chills, No fever Eyes: No problem reported ENT: No problem reported Respiratory: + dyspnea on exertion, + shortness of breath Cardiac: + chest pain, No palpitations Abdomen: + see HPI Musculoskeletal: No problem reported Male : No problem reported Neuro: + weakness Psych: No problem reported Heme: No problem reported Skin: No problem reported Physical Exam Date Time Temp Pulse Resp B/P Pulse Ox O2 Delivery O2 Flow Rate FiO2 04/24/16 07:49 36.4 100 18 118/81 100 2.0 04/24/16 04:00 Room Air 04/24/16 03:58 36.6 103 18 108/70 96 Room Air 04/24/16 00:21 36.5 120 18 156/70 98 Room Air 04/23/16 23:15 Room Air 04/23/16 22:30 36.7 115 20 117/75 99 04/23/16 21:30 36.5 110 20 114/70 99 04/23/16 21:00 36.5 99 20 121/84 98 04/23/16 20:45 36.6 105 20 116/79 99 04/23/16 20:30 36.8 98 20 115/68 99 04/23/16 20:00 Room Air 04/23/16 19:15 36.5 102 18 119/65 99 04/23/16 18:15 100 Room Air 04/23/16 18:15 36.5 104 18 118/75 100 04/23/16 17:17 99 20 119/59 04/23/16 17:15 37.2 99 20 119/59 04/23/16 16:45 36.7 102 18 115/75 100 04/23/16 16:22 36.9 100 16 103/69 99 04/23/16 15:39 86 16 111/62 99 Room Air 04/23/16 14:24 37.0 112 28 104/57 95 Room Air 04/23/16 14:24 37.0 112 25 104/57 99 Room Air 04/23/16 14:24 100 Room Air 04/23/16 13:59 92 General Appearance: WD/WN, no apparent distress Eyes: EOMI ENT: hearing grossly normal Neck: supple Respiratory/Chest: no respiratory distress, + wheezing Cardiovascular: no gallop, no murmur, + irregularly irregular Abdomen: normal bowel sounds, non tender, soft Extremities: no pedal edema Neurologic/Psych: alert, normal mood/affect, oriented x 3 Skin: warm/dry Laboratory Results Last 24 Hours Test 04/23/16 14:00 04/23/16 14:09 04/24/16 01:10 04/24/16 06:22 White Blood Count 7.26 K/uL 5.59 K/uL Red Blood Count 2.17 M/uL 2.56 M/uL Hemoglobin 7.3 g/dL 8.3 g/dL 8.1 g/dL Hematocrit 20.8 % 23.5 % 23.3 % Mean Corpuscular Volume 95.9 fL 91.0 fL Mean Corpuscular Hemoglobin 33.6 pg 31.6 pg Mean Corpuscular Hemoglobin Concent 35.1 g/dl 34.8 g/dl Platelet Count 187 K/uL 146 K/uL Mean Platelet Volume 9.9 fL 9.8 fL Neutrophils (%) (Auto) 71.4 % Lymphocytes (%) (Auto) 15.4 % Monocytes (%) (Auto) 11.2 % Eosinophils (%) (Auto) 1.0 % Basophils (%) (Auto) 0.7 % Neutrophils # (Auto) 5.19 K/uL Lymphocytes # (Auto) 1.12 K/uL Monocytes # (Auto) 0.81 K/uL Eosinophils # (Auto) 0.07 K/uL Basophils # (Auto) 0.05 K/uL RDW Standard Deviation 50.9 fL 52.9 fL RDW Coefficient of Variation 14.6 % 15.7 % Immature Granulocyte % (Auto) 0.3 % Immature Granulocyte # (Auto) 0.02 K/uL Giant Platelets 1+ Polychromasia 1+ Basophilic Stippling 1+ Prothrombin Time 14.9 SECONDS Prothromb Time International Ratio 1.4 Activated Partial Thromboplast Time 27.0 SECONDS Partial Thromboplastin Ratio 1.0 Sodium Level 130 mmol/L 134 mmol/L Potassium Level 4.3 mmol/L 4.1 mmol/L Chloride Level 94 mmol/L 100 mmol/L Carbon Dioxide Level 26 mmol/L 25 mmol/L Anion Gap 10.0 mmol/L 9.0 mmol/L Blood Urea Nitrogen 13 mg/dl 11 mg/dl Creatinine 0.67 mg/dl 0.59 mg/dl Est Creatinine Clear Calc Drug Dose 131.1 ml/min 151.5 ml/min Estimated GFR () 116.0 122.3 Estimated GFR (Non- 100.1 105.5 BUN/Creatinine Ratio 19.9 19.0 Random Glucose 122 mg/dl 100 mg/dl Calcium Level 8.1 mg/dl 7.9 mg/dl Magnesium Level 2.1 mg/dl 2.0 mg/dl Total Bilirubin 1.5 mg/dl Aspartate Amino Transf (AST/SGOT) 66 U/L Alanine Aminotransferase (ALT/SGPT) 34 U/L Alkaline Phosphatase 112 U/L Troponin I < 0.015 ng/ml < 0.015 ng/ml Total Protein 6.1 gm/dl Albumin 2.7 gm/dl Globulin 3.4 gm/dl Albumin/Globulin Ratio 0.8 Bedside Troponin I 0.000 ng/ml Total Creatine Kinase 141 U/L Creatine Kinase MB 4.7 ng/ml Creatine Kinase MB Ratio 3.3 Hepatitis C Antibody Screen NEG Impression Patient is a 65 year old male with a history of gastric erosions, chronic alcohol abuse as well as atrial fibrillation requiring chronic anticoagulation therapy admitted with symptomatic acute blood loss anemia and melena. Plan 1. Keep NPO. 2. EGD with Dr. Roman today. 3. Continue PPI ggt at 8 mg/hr. 4. Transfuse to keep hgb ~ 10 given underlying cardiovascular history. 5. Additional recommendations pending results of testing. Thank you for allowing us to participate in the care of this patient. If you have any questions or concerns, please do not hesitate to contact us. Agree with KATIANA Reese as above Abd: Soft, NT, ND, +BS EGD showed diffuse gastritis most likely related to heavy alcohol use. I do believe that this is the source of the patient's melena, and advised that he remain on PPI therapy daily infefinitely. I also stressed the importance of alcohol abstinence as this is most likely the underlying cause of his gastritis. Biopsies of the gastric mucosa were performed during the EGD. Continue current therapy and supportive care.
[2016-04-24] MEDS: SODIUM CHLORIDE 0.9% 1000ML 1,000 ML IV SCH ×2 (10:56→21:23)
[2016-04-24 11:48] LABS: HEMATOCRIT 23.1 % (42-52)
[2016-04-24] MEDS ORDERED: METOPROLOL TARTRATE 1 MG/ML VIAL ONE (13:43)
[2016-04-24] MEDS ORDERED: LIDOCAINE HCL 2% 2 ML VIAL (20MG/ML) ONE (13:43)
[2016-04-24] MEDS ORDERED: PROPOFOL IV EMULSION 10 MG/ML 20 ML VIAL IV ONE (13:43)
--- NOTE | 2016-04-24 14:26 | Anesthesiology Progress Note ---
Anesthesia Post Op Note Date & Time Apr 24, 2016 at 14:27 Vital Signs Pain Intensity: 0.0 Vital Signs Past 12 Hours Date Time Temp Pulse Resp B/P Pulse Ox O2 Delivery O2 Flow Rate FiO2 04/24/16 14:21 96 20 147/65 98 Room Air 04/24/16 14:06 116 18 140/69 96 Room Air 04/24/16 13:25 37 103 20 137/68 96 Room Air 04/24/16 12:00 100 Room Air 04/24/16 11:27 36.4 89 18 113/67 99 Room Air 04/24/16 08:00 100 Room Air 04/24/16 07:49 36.4 100 18 118/81 100 2.0 04/24/16 04:00 Room Air 04/24/16 03:58 36.6 103 18 108/70 96 Room Air Notes Mental Status: alert / awake / arousable, participated in evaluation Pt Amnestic to Procedure: Yes Nausea / Vomiting: adequately controlled Pain: adequately controlled Airway Patency, RR, SpO2: stable & adequate BP & HR: stable & adequate Hydration State: stable & adequate Anesthetic Complications: no major complications apparent
--- NOTE | 2016-04-24 15:09 | GI REPORT ---
Procedure Date: 04/24/2016 1:41 PM Procedure: Upper GI endoscopy Indications: Melena Medicines: Monitored Anesthesia Care Complications: No immediate complications. Estimated Blood Loss: Estimated blood loss: none. Procedure: Pre-Anesthesia Assessment: - Prior to the procedure, a History and Physical was performed, and patient medications and allergies were reviewed. The patient's tolerance of previous anesthesia was also reviewed. The risks and benefits of the procedure and the sedation options and risks were discussed with the patient. All questions were answered, and informed consent was obtained. Prior Anticoagulants: The patient has taken Eliquis (apixaban), last dose was 2 days prior to procedure. ASA Grade Assessment: II - A patient with mild systemic disease. After reviewing the risks and benefits, the patient was deemed in satisfactory condition to undergo the procedure. After obtaining informed consent, the endoscope was passed under direct vision. Throughout the procedure, the patient's blood pressure, pulse, and oxygen saturations were monitored continuously. The scope was introduced through the mouth, and advanced to the second part of duodenum. The upper GI endoscopy was accomplished without difficulty. The patient tolerated the procedure well. Findings: The Z-line was irregular. Diffuse moderate inflammation characterized by congestion (edema) and erythema was found in the entire examined stomach. Biopsies were taken with a cold forceps for histology. The examined duodenum was normal. Impression: - Z-line irregular. - Gastritis. Biopsied. - Normal examined duodenum. Recommendation: - Resume previous diet. - Continue present medications. - Await pathology results. - Return patient to [facility] for ongoing care. Cameron Roman DO 04/24/2016 2:13:17 PM This report has been signed electronically. Note Initiated On: 04/24/2016 1:41 PM I attest to the content of the Intraoperative Record and orders documented therein, exceptions below
[2016-04-24] MEDS: ALBUT/IPRATROP 3MG/0.5MG NEB 3 ML VIAL INH SCH ×2 (15:29→20:00)
[2016-04-24] MEDS: METOPROLOL TARTRATE 1 MG/ML VIAL IV. SCH (19:20)
[2016-04-25] VITALS (16 sets, daily range): BP systolic 115–150; BP diastolic 71–89; PULSE 87–131; TEMP 36.3–36.4; O2SAT 96–100
[2016-04-25] MEDS: PANTOprazole INJ 40 MG in DEXTROSE 5% 100ML IV SCH ×2 (01:58→07:02)
[2016-04-25] MEDS ORDERED: LORAZEPAM INJ 1 MG in SYRINGE 0.5 ML IV PRN (05:30)
[2016-04-25] MEDS: SODIUM CHLORIDE 0.9% 1000ML 1,000 ML IV SCH (07:02)
[2016-04-25 07:08] LABS: MEAN CELL VOLUME 93.1 fL (80-100); MEAN CORPUSCULAR HGB CONC 34.3 g/dl (32-36); MEAN PLATELET VOLUME 10.1 fL (7.4-10.4); PLATELET COUNT 151 K/uL (130-400); RED BLOOD COUNT 2.47 M/uL (4.7-6.1); WHITE BLOOD COUNT 4.77 K/uL (4.8-10.8)
[2016-04-25] MEDS: ALBUT/IPRATROP 3MG/0.5MG NEB 3 ML VIAL INH SCH ×3 (07:31→19:03)
[2016-04-25 07:36] LABS: BUN/CREATININE RATIO 13.7 (10-20); CALCIUM 7.8 mg/dl (8.5-10.1); CREATININE 0.56 mg/dl (0.60-1.40); MAGNESIUM 1.9 mg/dl (1.8-2.4); POTASSIUM 3.8 mmol/L (3.5-5.1)
--- NOTE | 2016-04-25 07:46 | Hospitalist Progress Note ---
Hospitalist Progress Note Date of Service Apr 25, 2016. Subjective Pt evaluation today including: conversation w/ patient, physical exam, chart review, lab review, review of studies, review of inpatient medication list Voiding: no voiding problems, no incontinence Patient states he is feeling well. Denies any BMs today. Tolerating diet well. + SOB. Patient denies any fever, chills, sweats, lightheadedness, dizziness, vision changes, CP, palpitations, edema, wheezing, cough, abdominal pain, nausea , vomiting, diarrhea, urinary symptoms, melena, numbness/tingling, weakness, muscle/joint pain, anxiety/depression, active bleeding, or new skin discoloration/changes. Medications Current Inpatient Medications Medications (Trade) Dose Ordered Sig/Anali Route Start Time Stop Time Status Last Admin Dose Admin Sodium Chloride (Nss 1000ml) 1,000 ml @ 100 mls/hr Q10H IV 04/23/16 15:26 05/23/16 15:25 04/25/16 07:02 100 MLS/HR Acetaminophen (Tylenol Tab) 650 mg Q4H PRN PO 04/23/16 15:30 05/23/16 15:29 Al Hydrox/Mg Hydrox/Simethicone (Maalox Max Susp) 15 ml Q4H PRN PO 04/23/16 15:30 05/23/16 15:29 Magnesium Hydroxide (Milk Of Magnesia Susp) 30 ml Q12H PRN PO 04/23/16 15:30 05/23/16 15:29 Ondansetron HCl (Zofran Inj) 4 mg Q6H PRN IV 04/23/16 15:30 05/23/16 15:29 Polyethylene (Miralax Powder Packet) 17 gm DAILY PRN PO 04/23/16 15:30 05/23/16 15:29 Albuterol/ Ipratropium 3 ml 3 ml Q2H PRN INH 04/23/16 16:30 05/23/16 16:29 Multivitamins/ Thiamine HCl/ Folic Acid/Sodium Chloride (Mvi Infusion Inj/Vitamin B-1 Inj/Folvite Inj/ Nss 1000ml) 1,011.2 ml @ 150 mls/ hr DAILY IV 04/24/16 09:00 05/24/16 08:59 04/25/16 08:09 150 MLS/HR Albuterol/ Ipratropium (Duoneb) 3 ml QIDR INH 04/24/16 12:00 05/24/16 11:59 04/25/16 07:31 3 ML Metoprolol Tartrate (Lopressor Iv) 5 mg BID IV. 04/24/16 21:00 05/24/16 20:59 Future Hold 04/25/16 08:09 5 MG Polyethylene Glycol/ Electrolytes 1 dose 1 dose UD PO 04/27/16 18:00 04/28/18 09:00 Pantoprazole Sodium/Syringe (Protonix Inj/ Syringe) 10 ml @ 5 mls/min BID@0900,2100 IV 04/25/16 21:00 05/25/16 20:59 Atenolol (Tenormin Tab) 100 mg BID PO 04/25/16 21:00 05/25/16 20:59 Lisinopril (Zestril Tab) 5 mg DAILY PO 04/26/16 09:00 05/26/16 08:59 Metoprolol Tartrate (Lopressor Iv) 5 mg Q6 PRN IV 04/25/16 11:15 05/25/16 11:14 Objective Vital Signs Date Time Temp Pulse Resp B/P Pulse Ox O2 Delivery O2 Flow Rate FiO2 04/25/16 07:27 36.3 109 18 122/73 99 04/25/16 04:00 36.4 119 18 150/83 97 Room Air 04/25/16 04:00 Room Air 04/25/16 00:01 Room Air 04/24/16 23:31 36.5 123 20 118/71 97 Room Air 04/24/16 20:47 96 16 96 Room Air 04/24/16 20:25 36.4 99 04/24/16 20:00 Room Air 04/24/16 19:20 69 131/82 04/24/16 19:18 69 131/82 04/24/16 16:15 36.4 99 18 126/86 100 Room Air 04/24/16 16:00 100 Room Air 04/24/16 15:29 114 16 97 Room Air 04/24/16 14:36 99 20 130/64 99 Room Air 04/24/16 14:21 96 20 147/65 98 Room Air 04/24/16 14:06 116 18 140/69 96 Room Air 04/24/16 13:25 37 103 20 137/68 96 Room Air 04/24/16 12:00 100 Room Air 04/24/16 11:27 36.4 89 18 113/67 99 Room Air 04/24/16 08:00 100 Room Air 04/24/16 07:49 36.4 100 18 118/81 100 2.0 Physical Exam General Appearance: no apparent distress Eyes: PERRL, + abnormal sclerae exam (jaundice ) ENT: hearing grossly normal Neck: supple Respiratory/Chest: no respiratory distress, no accessory muscle use, + decreased breath sounds (diffuse), + wheezing (diffuse expiratory wheeze ) Cardiovascular: + tachycardia, + irregularly irregular Abdomen: normal bowel sounds, non tender, + distended Extremities: no pedal edema, no calf tenderness 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: alert, normal mood/affect, oriented x 3 Skin: warm/dry, no rash, + pallor Laboratory Results Last 24 Hours Test 04/24/16 11:41 04/25/16 06:13 Hemoglobin 8.1 g/dL 7.9 g/dL Hematocrit 23.1 % 23.0 % White Blood Count 4.77 K/uL Red Blood Count 2.47 M/uL Mean Corpuscular Volume 93.1 fL Mean Corpuscular Hemoglobin 32.0 pg Mean Corpuscular Hemoglobin Concent 34.3 g/dl RDW Standard Deviation 54.6 fL RDW Coefficient of Variation 16.0 % Platelet Count 151 K/uL Mean Platelet Volume 10.1 fL Assessment and Plan Mr. Zarco is a 65 y/o male with PMHx of Persistent Atrial Fibrillation, HTN, Chronic Hyponatremia, Chronic Venous Stasis, and Alcohol Abuse/Tobacco Abuse who presented to the ED complaining of progressive shortness of breath for several months and melena for approximately one month. Acute blood loss anemia 2/2 melena/?esophageal varices: - Admit tele for cardiac monitoring--> reviewed- a.fib w/ episodes of RVR - Protonix IV BID - IV banana bag - Transfuse 2 units PRBC on 04/23 - Trended H&H- stable - Trend cardiac enzymes- negative - Consult gastroenterology - appreciate recommendations -- EGD w/ Dr. Roman on 04/24-- Z-line irregular. Gastritis- biopsied. Normal examined duodenum. -- Colonoscopy planned for 04/28 Persistent a.fib: - Resume Atenolol 100 mg BID - d/c IV Metoprolol scheduled, start IV Metoprolol 5 mg q6 hrs PRN for HR >120 - Hold Eliquis 5 mg BID due to GI bleeding Hypertension: - Resume Lisinopril 5 mg daily Chronic hyponatremia: - Follows with nephrology - believe patient is normally euvolemic or hypervolemic and may be secondary to alcohol consumption - Trend BMP Chronic venous stasis and bilateral lower extremity edema: - Hold Furosemide 20 mg BID, secondary to hypotension Alcohol abuse/tobacco abuse: - CT Abd/Pelvis (Nov 2015) - significant for hepatic steatosis without evidence of hepatomegaly; hepatic veins and portal veins patent - AWSS at risk protocol - Outpatient records question possible COPD but no official diagnosis - Duonebs QID and q2 hrs PRN - O2 protocol, wean as tolerated--> does NOT wear O2 supplement at home DVT Prophylaxis: - FELIX/SCDs - Withhold chemical prophylaxis due to GI bleeding Code Status: FULL RESUSCITATION Disposition: - Patient resides at home with no anticipated home needs
[2016-04-25] MEDS: MULTI-VITAMIN INFUSION INJ 10 ML, THIAMINE HCL INJ 100 MG, FoLIC ACID INJ 1 MG in SODIU... IV SCH (08:09)
[2016-04-25] MEDS: METOPROLOL TARTRATE 1 MG/ML VIAL IV. SCH (08:09)
--- NOTE | 2016-04-25 09:43 | Gastroenterology Progress Note ---
Progress Note Date of Service: Apr 25, 2016 Subjective Pt evaluation today including: conversation w/ patient, physical exam, chart review, lab review, review of studies, review of inpatient medication list Patient reports continued shortness of breath. No abdominal pain, nausea or vomiting, or bowel movements status post EGD yesterday with findings only of gastritis. He denies any melena or hematochezia. Continues PPI ggt. H&H did drop slightly to 7.9 from 8.1 yesterday. Review of Systems Constitutional: No chills, No fever Respiratory: + see HPI Cardiac: No problem reported Abdomen: + see HPI Psych: No problem reported Medications Current Inpatient Medications Medications (Trade) Dose Ordered Sig/Anali Route Start Time Stop Time Status Last Admin Dose Admin Pantoprazole Sodium 40 mg/ Dextrose 100 ml @ 20 mls/hr Q5H IV 04/23/16 15:15 05/23/16 15:14 04/25/16 07:02 20 MLS/HR Sodium Chloride (Nss 1000ml) 1,000 ml @ 100 mls/hr Q10H IV 04/23/16 15:26 05/23/16 15:25 04/25/16 07:02 100 MLS/HR Acetaminophen (Tylenol Tab) 650 mg Q4H PRN PO 04/23/16 15:30 05/23/16 15:29 Al Hydrox/Mg Hydrox/Simethicone (Maalox Max Susp) 15 ml Q4H PRN PO 04/23/16 15:30 05/23/16 15:29 Magnesium Hydroxide (Milk Of Magnesia Susp) 30 ml Q12H PRN PO 04/23/16 15:30 05/23/16 15:29 Ondansetron HCl (Zofran Inj) 4 mg Q6H PRN IV 04/23/16 15:30 05/23/16 15:29 Polyethylene (Miralax Powder Packet) 17 gm DAILY PRN PO 04/23/16 15:30 05/23/16 15:29 Lorazepam (Ativan Inj) 1 mg ONE PRN IV 04/23/16 15:30 05/07/16 15:29 Albuterol/ Ipratropium 3 ml 3 ml Q2H PRN INH 04/23/16 16:30 05/23/16 16:29 Multivitamins/ Thiamine HCl/ Folic Acid/Sodium Chloride (Mvi Infusion Inj/Vitamin B-1 Inj/Folvite Inj/ Nss 1000ml) 1,011.2 ml @ 150 mls/ hr DAILY IV 04/24/16 09:00 05/24/16 08:59 04/25/16 08:09 150 MLS/HR Albuterol/ Ipratropium (Duoneb) 3 ml QIDR INH 04/24/16 12:00 05/24/16 11:59 04/25/16 07:31 3 ML Metoprolol Tartrate (Lopressor Iv) 5 mg BID IV. 04/24/16 21:00 05/24/16 20:59 04/25/16 08:09 5 MG Objective Vital Signs Date Time Temp Pulse Resp B/P Pulse Ox O2 Delivery O2 Flow Rate FiO2 04/25/16 08:09 136 122/73 04/25/16 07:31 125 16 98 Room Air 04/25/16 07:27 36.3 109 18 122/73 99 04/25/16 04:00 36.4 119 18 150/83 97 Room Air 04/25/16 04:00 Room Air 04/25/16 00:01 Room Air 04/24/16 23:31 36.5 123 20 118/71 97 Room Air 04/24/16 20:47 96 16 96 Room Air 04/24/16 20:25 36.4 99 04/24/16 20:00 Room Air 04/24/16 19:20 69 131/82 04/24/16 19:18 69 131/82 04/24/16 16:15 36.4 99 18 126/86 100 Room Air 04/24/16 16:00 100 Room Air 04/24/16 15:29 114 16 97 Room Air 04/24/16 14:36 99 20 130/64 99 Room Air 04/24/16 14:21 96 20 147/65 98 Room Air 04/24/16 14:06 116 18 140/69 96 Room Air 04/24/16 13:25 37 103 20 137/68 96 Room Air 04/24/16 12:00 100 Room Air 04/24/16 11:27 36.4 89 18 113/67 99 Room Air Physical Exam General Appearance: WD/WN, no apparent distress Eyes: EOMI ENT: hearing grossly normal Respiratory/Chest: lungs clear, normal breath sounds Cardiovascular: no gallop, no murmur, + irregularly irregular Abdomen: soft Extremities: normal inspection Neurologic/Psych: alert, normal mood/affect, oriented x 3 Skin: warm/dry Laboratory Results Last 24 Hours Test 04/24/16 11:41 04/25/16 06:13 Hemoglobin 8.1 g/dL 7.9 g/dL Hematocrit 23.1 % 23.0 % White Blood Count 4.77 K/uL Red Blood Count 2.47 M/uL Mean Corpuscular Volume 93.1 fL Mean Corpuscular Hemoglobin 32.0 pg Mean Corpuscular Hemoglobin Concent 34.3 g/dl RDW Standard Deviation 54.6 fL RDW Coefficient of Variation 16.0 % Platelet Count 151 K/uL Mean Platelet Volume 10.1 fL Sodium Level 135 mmol/L Potassium Level 3.8 mmol/L Chloride Level 102 mmol/L Carbon Dioxide Level 24 mmol/L Anion Gap 9.0 mmol/L Blood Urea Nitrogen 8 mg/dl Creatinine 0.56 mg/dl Est Creatinine Clear Calc Drug Dose 159.3 ml/min Estimated GFR () 124.9 Estimated GFR (Non- 107.8 BUN/Creatinine Ratio 13.7 Random Glucose 97 mg/dl Calcium Level 7.8 mg/dl Magnesium Level 1.9 mg/dl Assessment and Plan Patient is a 65 year old male with a history of gastric erosions, chronic alcohol abuse as well as atrial fibrillation requiring chronic anticoagulation therapy admitted with symptomatic acute blood loss anemia and melena and findings of gastritis without current active bleeding. 1. Switch Protonix to 40 mg IV BID. 2. Continue to trend H&H and monitor for s/s of overt bleeding. 3. Clear liquid diet starting Wednesday, April 27, 2016. 4. GoLytely bowel prep Thursday evening. NPO after prep. 5. Colonoscopy with Dr. Roman on April 28. 6. If significant drop in H&H or overt GIB, please contact GI deputy sheriff civil division over the weekend. Agree with KATIANA Reese as above Abd: Soft, NT, ND, +BS Continue current therapy Colonoscopy on 04/28
--- NOTE | 2016-04-25 10:47 | Clinical Documentation Query ---
CLINICAL DOCUMENTATION QUERY 65 year old male who presents to the Emergency Room with complaints of worsening shortness of breath. In your clinical opinion is this patient being managed for: ( ) GI bleed due to Eliquis therapy treated with DC of Eliquis, PRBC's, and GI consult. ( X ) Other explanation of clinical findings (Please Explain) Possibly due to Eliquis, possibly due to gastritis secondary to alcohol abuse, colonoscopy on Thursday to further evaluate cause ( ) Unable to determine (Please Define) ( ) Need to Discuss ( ) Not Agree The medical record reflects the following clinical findings, treatment, and risk factors. Clinical Indicators: Melena, Hgb 7.3, Hct 20.8 Treatment: DC of Eliquis, 2 units of PRBC's, GI consult Risk Factors: Xa inhibitor Please clarify and document your clinical opinion in the progress notes and discharge summary. Terms such as "probable", "suspected", "likely", "questionable", "possible", or "still to be ruled out" are acceptable. IF IN AGREEMENT, YOU MUST DOCUMENT ABOVE DIAGNOSTIC STATEMENT IN DAILY PROGRESS NOTES AND DISCHARGE SUMMARY. This document is not part of the patient's record. Thank You, Wilmar Valdivia, RN [phone]
[2016-04-25] MEDS: METOPROLOL TARTRATE 1 MG/ML VIAL IV PRN (12:50)
[2016-04-25] MEDS ORDERED: NURSING VERBAL MED ORDER ONE ×2 (16:30→23:45)
[2016-04-25] MEDS ORDERED: METOPROLOL TARTRATE 1 MG/ML VIAL IV ONE (17:00)
[2016-04-25] MEDS ORDERED: LORAZEPAM INJ 0.5 MG in SYRINGE 0.25 ML IV STA (19:24)
[2016-04-25] MEDS ORDERED: DILTIAZEM BOLUS / DRIP IV STA (19:24)
[2016-04-25] MEDS ORDERED: LORAZEPAM INJ 0.5 MG in SYRINGE 0.75 ML IV ONE (20:15)
[2016-04-25] MEDS: DILTIAZEM HCL INJ 125 MG in DEXTROSE 5% 100ML IV PRN (20:31)
[2016-04-25] MEDS: PANTOprazole INJ 40 MG in SYRINGE 0 ML IV SCH (20:32)
[2016-04-25] MEDS ORDERED: LORAZEPAM 2 MG/ML 1 ML VIAL ONE (23:38)
[2016-04-26] VITALS (16 sets, daily range): BP systolic 107–156; BP diastolic 55–91; PULSE 71–120; TEMP 36.2–36.9; O2SAT 87–100
[2016-04-26] MEDS: D5W AND NSS 1,000 ML IV SCH ×2 (01:46→14:35)
[2016-04-26] MEDS ORDERED: MULTI-VITAMIN INFUSION INJ 10 ML, THIAMINE HCL INJ 100 MG, FoLIC ACID INJ 1 MG in SODIU... IV ONE (02:00)
[2016-04-26] MEDS: LORAZEPAM 2 MG/ML 1 ML VIAL IV PRN ×5 (02:04→17:46)
[2016-04-26] MEDS ORDERED: LORAZEPAM 2 MG/ML 1 ML VIAL ONE (03:07)
[2016-04-26] MEDS ORDERED: NURSING VERBAL MED ORDER ONE ×2 (03:30→14:45)
[2016-04-26] MEDS: ALBUT/IPRATROP 3MG/0.5MG NEB 3 ML VIAL INH PRN (03:36)
[2016-04-26 06:20] LABS: HEMATOCRIT 22.8 % (42-52); MEAN CELL VOLUME 95.4 fL (80-100); MEAN CORPUSCULAR HEMOGLOBIN 32.6 pg (25-34); MEAN CORPUSCULAR HGB CONC 34.2 g/dl (32-36); MEAN PLATELET VOLUME 10.2 fL (7.4-10.4); PLATELET COUNT 158 K/uL (130-400); RED BLOOD COUNT 2.39 M/uL (4.7-6.1); WHITE BLOOD COUNT 5.59 K/uL (4.8-10.8)
[2016-04-26 06:52] LABS: BUN/CREATININE RATIO 12.9 (10-20); CALCIUM 8.1 mg/dl (8.5-10.1); CREATININE 0.55 mg/dl (0.60-1.40); MAGNESIUM 1.9 mg/dl (1.8-2.4); POTASSIUM 3.9 mmol/L (3.5-5.1)
[2016-04-26] MEDS: ALBUT/IPRATROP 3MG/0.5MG NEB 3 ML VIAL INH SCH ×5 (07:03→20:07)
[2016-04-26] MEDS ORDERED: MULTI-VITAMIN INFUSION INJ 10 ML, THIAMINE HCL INJ 100 MG, FoLIC ACID INJ 1 MG in SODIU... IV SCH (09:00)
[2016-04-26] MEDS: LISINOPRIL 5 MG TAB PO SCH (09:00)
[2016-04-26] MEDS: PANTOprazole INJ 40 MG in SYRINGE 0 ML IV SCH ×2 (09:12→21:13)
[2016-04-26] MEDS: MULTI-VITAMIN INFUSION INJ 10 ML, THIAMINE HCL INJ 100 MG, FoLIC ACID INJ 1 MG in SODIU... IV SCH (09:39)
[2016-04-26] MEDS ORDERED: GABAPENTIN 600 MG TAB PO SCH (12:15)
--- NOTE | 2016-04-26 12:29 | Progress Note ---
Subjective Date of Service: Apr 26, 2016. Subjective Pt evaluation today including: conversation w/ patient, physical exam, chart review, lab review, review of studies, conversation w/ continuous improvement consultant, review of inpatient medication list Was transfered to PCU for the need of Cardizem drip because of A. fib with RVR Was completely, see was call to 8-10, got Ativan 1 mg, when I see him currently he is in sleep, Vital signs stable, Problem List Medical Problems: (1) Anemia Status: Acute (2) GI bleed Status: Acute (3) Left sided chest pain Status: Acute (4) Shortness of breath Status: Acute (5) Weakness Status: Acute Review of Systems Constitutional: + problem reported (otherwise not able to obtain because he is sleep), No chills, No fever Objective Vital Signs Date Time Temp Pulse Resp B/P Pulse Ox O2 Delivery O2 Flow Rate FiO2 04/26/16 11:03 36.5 93 20 128/55 100 04/26/16 11:01 95 16 90 Room Air 04/26/16 08:46 97 20 96 Room Air 04/26/16 08:35 112 20 156/91 96 04/26/16 08:00 Room Air 04/26/16 07:04 36.7 98 20 142/78 98 04/26/16 07:03 102 16 96 Room Air 04/26/16 04:00 Room Air 04/26/16 03:48 36.7 105 24 124/72 98 Room Air 04/26/16 03:36 82 16 98 Room Air 04/26/16 02:11 85 123/69 04/26/16 01:17 71 107/76 04/26/16 00:00 36.9 89 20 125/87 98 Room Air 04/26/16 00:00 Room Air 04/25/16 23:02 87 115/79 04/25/16 22:00 97 122/83 04/25/16 21:05 110 127/85 04/25/16 20:41 144/88 04/25/16 20:35 129 20 127/89 96 Room Air 04/25/16 20:00 98 Room Air 04/25/16 19:39 36.4 105 18 141/71 96 Room Air 04/25/16 19:03 114 16 98 Room Air 04/25/16 16:35 137 143/78 04/25/16 16:00 98 Room Air 04/25/16 15:00 36.3 131 20 123/85 98 04/25/16 12:50 140 148/78 Physical Exam General Appearance: WD/WN, no apparent distress, + obese Eyes: normal inspection, PERRL, EOMI, sclerae normal ENT: normal ENT inspection, hearing grossly normal, pharynx normal Neck: supple, no adenopathy, thyroid normal, no JVD, no carotid bruits, trachea midline Respiratory/Chest: chest non-tender, no respiratory distress, no accessory muscle use, + decreased breath sounds, + wheezing (occasional) Cardiovascular: regular rate, rhythm, no edema, no gallop, no JVD, no murmur Abdomen: normal bowel sounds, non tender, soft, no organomegaly, no pulsatile mass Extremities: normal range of motion, non-tender, normal inspection, no pedal edema, no calf tenderness, normal capillary refill, pelvis stable 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: + pertinent finding (droop) Skin: normal color, warm/dry, no rash Lymphatic: no adenopathy Laboratory Results Last 24 Hours Test 04/26/16 05:20 White Blood Count 5.59 K/uL Red Blood Count 2.39 M/uL Hemoglobin 7.8 g/dL Hematocrit 22.8 % Mean Corpuscular Volume 95.4 fL Mean Corpuscular Hemoglobin 32.6 pg Mean Corpuscular Hemoglobin Concent 34.2 g/dl RDW Standard Deviation 53.7 fL RDW Coefficient of Variation 15.5 % Platelet Count 158 K/uL Mean Platelet Volume 10.2 fL Sodium Level 133 mmol/L Potassium Level 3.9 mmol/L Chloride Level 100 mmol/L Carbon Dioxide Level 22 mmol/L Anion Gap 11.0 mmol/L Blood Urea Nitrogen 7 mg/dl Creatinine 0.55 mg/dl Est Creatinine Clear Calc Drug Dose 163.3 ml/min Estimated GFR () 125.9 Estimated GFR (Non- 108.6 BUN/Creatinine Ratio 12.9 Random Glucose 100 mg/dl Calcium Level 8.1 mg/dl Magnesium Level 1.9 mg/dl Assessment and Plan 65 y/o male with PMHx of Persistent Atrial Fibrillation, HTN, Chronic Hyponatremia, Chronic Venous Stasis, and Alcohol Abuse/Tobacco Abuse who presented to the ED complaining of progressive shortness of breath for several months and melena for approximately one month. Acute blood loss anemia 2/2 melena/?esophageal varices: GI bleed possibly due to Eliquis, possibly due to severe gastritis secondary to alcohol abuse, colonoscopy pending to further evaluate cause -- EGD w/ Case on 04/24-- Z-line irregular. Gastritis- biopsied. Normal examined duodenum. -- Colonoscopy planned for 04/28 HB stable, continue PPI, a.fib w/ episodes of RVR , better controlled, continue Cardizem drip, repeated when chill response possible also related to alcohol withdrawal hx of a.fib, cont Atenolol 100 mg BID , cont cardizem drip, cardio consult - Hold Eliquis 5 mg BID due to GI bleeding alcohol withdrawal, has been on banana bag for 3 days, will switch to by mouth thiamine and folate acid and multiple vitamin when he able to tolerate, AIWW protocol, Ativan as needed for ASWW score Hypertension: - Resume Lisinopril 5 mg daily Chronic hyponatremia: - Follows with nephrology - believe patient is normally euvolemic or hypervolemic and may be secondary to alcohol consumption - Trend BMP Chronic venous stasis and bilateral lower extremity edema: - Hold Furosemide 20 mg BID, secondary to hypotension , watch for signs of fluid overload DVT Prophylaxis: - FELIX/SCDs - Withhold chemical prophylaxis due to GI bleeding Fall precaution, seizure precautions Code Status: FULL RESUSCITATION Disposition: - Patient resides at home with no anticipated home needs Continued [facility] stay due to: multiple IV medications needed Discharge planning: home
[2016-04-26] MEDS ORDERED: GABAPENTIN 600MG LOADING DOSE PO SCH (13:30)
[2016-04-26] MEDS: LORAZEPAM 1 MG TAB PO PRN ×4 (14:30→23:19)
[2016-04-26] MEDS ORDERED: FUROSEMIDE INJ 20 MG in SYRINGE 0 ML IV ONE (15:00)
[2016-04-26] MEDS ORDERED: LORAZEPAM 1 MG TAB ONE (18:50)
[2016-04-26] MEDS: GABAPENTIN 100MG Q6H DOSE PO SCH (18:57)
[2016-04-27] VITALS (12 sets, daily range): BP systolic 104–137; BP diastolic 64–88; PULSE 78–112; TEMP 36.3–36.8; O2SAT 94–100
[2016-04-27] MEDS: ALBUT/IPRATROP 3MG/0.5MG NEB 3 ML VIAL INH PRN (00:21)
[2016-04-27] MEDS: GABAPENTIN 100MG Q6H DOSE PO SCH (01:10)
--- NOTE | 2016-04-27 02:55 | CARDIOLOGY CONSULTATION ---
DATE OF CONSULTATION: 04/26/2016 REFERRING PHYSICIAN: Romain Rankin MD HISTORY OF PRESENT ILLNESS: Mr. Santos Zarco is a 65-year-old gentleman with a history of permanent atrial fibrillation and associated anticoagulation, who recently began complaining of symptoms of melena, dizziness and progressive shortness of breath. The patient was subsequently admitted for evidence of gastrointestinal hemorrhage and recently underwent EGD which revealed gastritis. The patient has permanent atrial fibrillation and is generally well rate-controlled. During this admission, the patient began having higher ventricular rates. At the time of this interview, the patient was very somnolent, having received a sedative. Supplemental history was obtained from the patient's who is present at the bedside. It seems that he has had some progressive dyspnea over the preceding several weeks. This was associated with a sense of mild dizziness and overall general weakness. The patient is not generally aware of his heart rate or atrial fibrillation. He has not recently suffered a syncopal episode. There was no suggestion of chest pain leading up to his admission. At the time of this interview the patient claims to be feeling well with normal breathing, though he does appear to have an element of respiratory distress. PAST MEDICAL HISTORY: 1. Significant for the aforementioned atrial fibrillation which has been persistent over several months. 2. Hypertension. 3. Hypercholesterolemia. 4. Tobacco abuse. 5. Alcohol abuse. 6. Hyponatremia. 7. Lower extremity edema. 8. Obesity. 9. Asthma. PAST SURGICAL HISTORY: None. FAMILY HISTORY: Not significant for premature coronary artery disease. SOCIAL HISTORY: The patient does have an extensive alcohol use history and is a current smoker. OUTPATIENT MEDICATIONS: Include: Atenolol 100 mg twice daily, Combivent, Eliquis 5 mg twice daily, folate, furosemide 20 mg twice daily and lisinopril 20 mg daily. ALLERGIES: No known medical allergies. REVIEW OF SYSTEMS: Complete review of systems could not be performed due to the patient's somnolence. PHYSICAL EXAMINATION: GENERAL: The patient appeared to be somewhat somnolent, but was easily arousable and did answer questions appropriately. VITAL SIGNS: Included a blood pressure of 122/80 with a pulse of 82. HEENT: Anicteric. Extraocular movements were intact. Palpation in the submandibular region not really significant for lymphadenopathy. The carotids were palpable bilaterally. I did not appreciate bruits on auscultation. I cannot appreciate jugular venous distention, although the patient's neck was quite redundant. I did not appreciate any thyromegaly. LUNGS: Auscultation of both lungs revealed occasional crackles at the bases and overall poor air movement with very prominent expiratory stridor and expiratory wheezing due to what appeared to be poor lung mechanics. HEART: Reveals him to be in an irregularly irregular rhythm. I did not appreciate any murmurs on exam. ABDOMEN: Very protuberant and somewhat firm, but nontender. EXTREMITIES: Evaluation of both wrists revealed radial pulses that were equal in intensity. I do not appreciate any cyanosis or clubbing. Evaluation of the lower extremities revealed some atrophic changes bilaterally and there was evidence of overall edema. I did not appreciate any other rashes on exam today. LABORATORY STUDIES: Obtained today included a white cell count of 5.5, hemoglobin 7.8, platelet count of 158. Sodium was 133, potassium was 3.9, BUN was 7 and creatinine was 0.5. I reviewed the patient's telemetry which did reveal atrial fibrillation with rapid ventricular rates. A 12-lead EKG was also obtained at the time of admission which revealed atrial fibrillation and rapid ventricular rate with possible old inferior infarct. There is an echocardiogram obtained in January 2015 which revealed preserved left ventricular systolic function and biatrial dilation. ASSESSMENT AND PLAN: 1. Atrial fibrillation. The patient has evidence of rapid ventricular response, which is unusual given his relatively good rate control as an outpatient. High rate likely related to some changes which have occurred in the acute setting to include missing several doses of atenolol due to somnolence and concerns over hemodynamic changes, marked volume resuscitation with evidence of total body volume overload currently and possible hyperadrenergic state associated with his acute medical condition and possible alcohol withdrawal. At this point, I think the most appropriate intervention would be an attempt at diuresis which has been begun this evening with intravenous Lasix. This could be continued with IV Lasix depending on his results or simply return to his outpatient regimen of b.i.d. oral Lasix. I would also advocate more rigorous administration of his atenolol twice daily. This has been held recently due to patient's somnolence. I also suspect things will improve as symptoms of alcohol withdrawal improve. With respect to anticoagulation, I believe this is the patient's second episode of gastrointestinal hemorrhage while on anticoagulants. I think it is reasonable to defer reinstitution of anticoagulation unless there is an obvious reversible cause of his bleeding which can reliably be addressed. It seems that factor X inhibitors have a propensity for gastrointestinal hemorrhage as opposed to intracranial bleeding and if the patient is reinitiated on anticoagulation, consideration could be given to standard warfarin therapy and/or warfarin therapy in the setting of alcohol abuse; however, it can be difficult to control. 2. Edema; the patient was aggressively volume resuscitated during this hospitalization. He may have an element of pulmonary vascular congestion based on his breathing pattern and what appears to be significant edema I agree with the recommendation to begin diuresis as I think this will both improve his edema, pulmonary vascular congestion and likely heart rate. Should the patient continue to have symptoms of breathing difficulty and pulmonary vascular congestion despite diuresis, we could repeat an echocardiogram to see if there has been any change in his left ventricular function. The patient certainly is at risk of developing cardiomyopathy with his history of alcohol abuse. MTDD
[2016-04-27] MEDS: LORAZEPAM 1 MG TAB PO PRN ×8 (04:02→23:00)
[2016-04-27] MEDS: ALBUT/IPRATROP 3MG/0.5MG NEB 3 ML VIAL INH SCH ×2 (06:55→11:10)
[2016-04-27] MEDS: PANTOprazole INJ 40 MG in SYRINGE 0 ML IV SCH ×2 (07:26→21:23)
[2016-04-27] MEDS: LISINOPRIL 5 MG TAB PO SCH (07:26)
[2016-04-27 08:01] LABS: HEMATOCRIT 24.1 % (42-52); MEAN CELL VOLUME 97.2 fL (80-100); MEAN CORPUSCULAR HEMOGLOBIN 32.3 pg (25-34); MEAN CORPUSCULAR HGB CONC 33.2 g/dl (32-36); MEAN PLATELET VOLUME 9.8 fL (7.4-10.4); PLATELET COUNT 167 K/uL (130-400); RED BLOOD COUNT 2.48 M/uL (4.7-6.1); WHITE BLOOD COUNT 5.59 K/uL (4.8-10.8)
[2016-04-27 08:55] LABS: BUN/CREATININE RATIO 13.6 (10-20); CALCIUM 8.3 mg/dl (8.5-10.1); CREATININE 0.56 mg/dl (0.60-1.40); MAGNESIUM 1.9 mg/dl (1.8-2.4); POTASSIUM 4.2 mmol/L (3.5-5.1)
[2016-04-27] MEDS ORDERED: GABAPENTIN 600MG X1 DOSE PO SCH (09:00)
[2016-04-27] MEDS ORDERED: LORAZEPAM 1 MG TAB ONE (09:26)
[2016-04-27] MEDS ORDERED: NURSING VERBAL MED ORDER ONE (11:15)
[2016-04-27] MEDS ORDERED: FUROSEMIDE 40 MG/4 ML VIAL ONE (11:15)
[2016-04-27] MEDS ORDERED: FUROSEMIDE INJ 40 MG in SYRINGE 0 ML IV ONE (11:30)
--- NOTE | 2016-04-27 13:43 | CARDIOLOGY PROGRESS NOTE ---
DATE: 04/27/2016 This morning, Mr. Zarco did not report any significant breathing difficulty. He has been minimally ambulatory around his room. He denied any symptoms of chest pain or sense of palpitations. PHYSICAL EXAMINATION: GENERAL: He was notably somnolent but easily arousable. His speech was somewhat slurred with questioning. This appeared to be related to sedation recently administered. VITAL SIGNS: Currently included a blood pressure of 104/64 with a pulse of 97. HEENT: His sclerae are anicteric. LUNGS: Auscultation of his lung apices reveal him to be clear. He did have some marked expiratory wheezing however. CARDIAC: Revealed him to be in irregularly irregular rhythm. EXTREMITIES: Evaluation of lower extremities revealed some trophic changes as well as peripheral edema. LABORATORY DATA: His laboratory studies obtained today included a white cell count of 5.5, hemoglobin of 8, and a platelet count of 167. Sodium is 134, potassium is 4.2, BUN was 8, creatinine was 0.5. ASSESSMENT AND PLAN: Atrial fibrillation: Permanent. The patient's rate control has improved today. This is likely due to several factors including better control of what is likely to be alcohol withdrawal, scheduled dosing of his atenolol and improvement in his volume status. At this point, it seems that he is still markedly edematous and recommend continuation of his diuresis. With regard to his anticoagulation, this has been deferred until GI evaluation can be completed, at which point we will have recommendation regarding the risk of continued systemic anticoagulation.
[2016-04-27] MEDS: LORAZEPAM 2 MG/ML 1 ML VIAL IV PRN (13:48)
[2016-04-27] MEDS ORDERED: LEVALBUTEROL/IPRATROPIUM NEB INH PRN (14:30)
[2016-04-27] MEDS ORDERED: LEVALBUTEROL 1.25MG/0.5ML NEB INH PRN (14:45)
[2016-04-27] MEDS ORDERED: IPRATROPIUM BROMIDE NEB SOLN 0.02% 2.5 ML VIAL INH PRN (14:45)
[2016-04-27] MEDS: LEVALBUTEROL 1.25MG/0.5ML NEB INH SCH ×2 (15:00→20:27)
[2016-04-27] MEDS: IPRATROPIUM BROMIDE NEB SOLN 0.02% 2.5 ML VIAL INH SCH ×2 (15:00→20:27)
[2016-04-27] MEDS ORDERED: LEVALBUTEROL/IPRATROPIUM NEB INH SCH (15:00)
[2016-04-27] MEDS ORDERED: METHYLPREDNISOLONE IV 125 MG in SYRINGE 0 ML IV ONE (15:00)
[2016-04-27] MEDS: NICOTINE 14 MG/24 HR TDSY TD SCH (15:00)
[2016-04-27] MEDS ORDERED: FUROSEMIDE INJ 20 MG in SYRINGE 0 ML IV ONE (15:00)
--- NOTE | 2016-04-27 15:44 | Progress Note ---
Subjective Date of Service: Apr 27, 2016. Subjective Pt evaluation today including: conversation w/ patient, conversation w/ family , physical exam, chart review, lab review, review of studies, conversation w/ neuropsychology medical consultant, review of inpatient medication list Voiding: schrader catheter in place Has been having wheezing, difficulty breathing, call 1 dose Lasix last p.m. and this a.m., has good urine output, more alert, Problem List Medical Problems: (1) Anemia Status: Acute (2) GI bleed Status: Acute (3) Left sided chest pain Status: Acute (4) Shortness of breath Status: Acute (5) Weakness Status: Acute Review of Systems Constitutional: + fatigue, + weakness, No chills, No fever, No problem reported , No sweats, No weight loss Eyes: No diplopia, No discharge, No eye pain, No redness, No worsening of vision ENT: No dental problems, No hearing loss, No nasal symptoms, No sore throat, No tinnitus, No trouble swallowing, No unusual epistaxis Respiratory: + cough, + shortness of breath, + wheezing, No dyspnea at rest, No dyspnea on exertion, No hemoptysis, No sputum Cardiac: + edema, No PND, No chest pain, No claudication, No orthopnea, No palpitations Abdomen: No constipation, No diarrhea, No nausea, No pain, No vomiting Musculoskeletal: No calf pain, No joint pain, No muscle pain, No swelling Male : No dysuria, No hematuria, No incontinence, No nocturia more than once/ night, No slowing stream, No urinary frequency Neurologic: No balance problems, No memory loss, No numbness/tingling, No paralysis, No vertigo, No weakness Psychiatric: No anhedonism, No anxiety, No depression symptoms, No insomnia, No substance abuse Heme: No abnormal bleeding/bruising, No clotting problems, No night sweats, No swollen lymph nodes Endo: No excessive thirst, No excessive urination, No fatigue Skin: No bleeding, No color change, No itch, No new/changing skin lesions, No rash Objective Vital Signs Date Time Temp Pulse Resp B/P Pulse Ox O2 Delivery O2 Flow Rate FiO2 04/27/16 12:00 Room Air 04/27/16 11:10 83 20 96 Room Air 04/27/16 11:08 36.5 97 22 104/64 100 Room Air 04/27/16 08:00 Room Air 04/27/16 06:57 36.3 83 19 122/84 99 Room Air 04/27/16 06:55 82 20 96 Room Air 04/27/16 04:00 Room Air 04/27/16 03:40 36.6 78 18 108/76 96 Nasal Cannula 1.0 04/27/16 00:21 112 20 95 Room Air 04/27/16 00:11 Room Air 04/27/16 00:05 36.8 96 18 137/74 96 Nasal Cannula 1.0 04/26/16 22:00 36.5 115 20 124/86 98 Nasal Cannula 1.0 04/26/16 20:07 120 18 87 Room Air 04/26/16 20:00 Nasal Cannula 1.0 98 04/26/16 19:29 36.2 108 20 115/69 96 Room Air 04/26/16 16:08 Room Air 04/26/16 15:35 82 16 98 Room Air Physical Exam General Appearance: WD/WN, no apparent distress, + obese Eyes: normal inspection, PERRL, EOMI, sclerae normal ENT: normal ENT inspection, hearing grossly normal, pharynx normal Neck: supple, no adenopathy, thyroid normal, no JVD, no carotid bruits, trachea midline Respiratory/Chest: chest non-tender, normal breath sounds, no respiratory distress, no accessory muscle use, + decreased breath sounds, + wheezing Cardiovascular: no gallop, no JVD, no murmur, + irregularly irregular, + pertinent finding (2+ edema) Abdomen: normal bowel sounds, non tender, soft, no organomegaly, no pulsatile mass Extremities: normal range of motion, non-tender, normal inspection, no pedal edema, no calf tenderness, normal capillary refill, pelvis stable 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: table tender II-XII nml as tested, no motor/sensory deficits, alert, normal mood/affect, oriented x 3 Skin: normal color, warm/dry, no rash Lymphatic: no adenopathy Laboratory Results Last 24 Hours Test 04/27/16 07:35 White Blood Count 5.59 K/uL Red Blood Count 2.48 M/uL Hemoglobin 8.0 g/dL Hematocrit 24.1 % Mean Corpuscular Volume 97.2 fL Mean Corpuscular Hemoglobin 32.3 pg Mean Corpuscular Hemoglobin Concent 33.2 g/dl RDW Standard Deviation 55.0 fL RDW Coefficient of Variation 15.5 % Platelet Count 167 K/uL Mean Platelet Volume 9.8 fL Sodium Level 134 mmol/L Potassium Level 4.2 mmol/L Chloride Level 101 mmol/L Carbon Dioxide Level 24 mmol/L Anion Gap 9.0 mmol/L Blood Urea Nitrogen 8 mg/dl Creatinine 0.56 mg/dl Est Creatinine Clear Calc Drug Dose 159.4 ml/min Estimated GFR () 124.9 Estimated GFR (Non- 107.8 BUN/Creatinine Ratio 13.6 Random Glucose 94 mg/dl Calcium Level 8.3 mg/dl Magnesium Level 1.9 mg/dl Assessment and Plan 65 y/o male admitted from emergency room complaining of progressive shortness of breath for several months and melena for approximately one month. Acute blood loss anemia 2/2 melena/?esophageal varices: GI bleed possibly due to Eliquis, possibly due to severe gastritis secondary to alcohol abuse, EGD was done, colonoscopy pending to further evaluate cause -- EGD w/ DrKennedy Case on 04/24-- Z-line irregular. Gastritis- biopsied. Normal examined duodenum. Continue on PPI -- Colonoscopy planned for 04/28, which will be tomorrow a.fib w/ episodes of RVR , has difficult controlled, which is better continue Cardizem drip for now, no transition to oral yet because planning to do colonoscopy, possible also related to alcohol withdrawal and fluid overload from banana bag Hx of Persistent Atrial Fibrillation, hx of a.fib, cont Atenolol 100 mg BID , cont cardizem drip, Possible CHF exacerbation, and possible cardiomyopathy from heavy alcohol intake , and fluid overload, Order echo cardio consulted Continue beta larry, Cardizem drip, intravenous diuretic, Hold Eliquis 5 mg BID due to GI bleeding Possible COPD exacerbation, with history of COPD and tobacco abuse disorder, and now has evidence of wheezing diffusely, Give Xopenex and Atrovent nebulizer treatment every 6 schedule and every 2 hours as needed Start Solu-Medrol 125 mg one dose now and then 80 mg every 8 hour, alcohol withdrawal, hx of Chronic Hyponatremia, hx of Alcohol Abuse has been on banana bag for 3 days, switched to by mouth thiamine and folate acid and multiple vitamin when he able to tolerate, ASWW protocol, Ativan as needed for ASWW score Hypertension, stable Continue on Lisinopril 5 mg daily Chronic venous stasis and bilateral lower extremity edema: Was on Furosemide 20 mg BID at home, currently is on IV Lasix DVT Prophylaxis: - FELIX/SCDs - Withhold chemical prophylaxis due to GI bleeding Fall precaution, seizure precautions Code Status: FULL RESUSCITATION Continued [facility] stay due to: multiple IV medications needed Discharge planning: home
[2016-04-27] MEDS ORDERED: LAVAGE SOLUTION 4000ML PO SCH (18:00)
[2016-04-27] MEDS: METHYLPREDNISOLONE IV 80 MG in SYRINGE 0 ML IV SCH (21:23)
[2016-04-28] VITALS (14 sets, daily range): BP systolic 101–129; BP diastolic 60–87; PULSE 83–129; TEMP 36.3; O2SAT 91–100
[2016-04-28] MEDS: METOPROLOL TARTRATE 1 MG/ML VIAL IV PRN (00:52)
[2016-04-28] MEDS: LEVALBUTEROL 1.25MG/0.5ML NEB INH SCH ×4 (01:58→19:15)
[2016-04-28] MEDS: IPRATROPIUM BROMIDE NEB SOLN 0.02% 2.5 ML VIAL INH SCH ×4 (01:58→19:20)
[2016-04-28] MEDS: DILTIAZEM HCL INJ 125 MG in DEXTROSE 5% 100ML IV PRN (02:39)
[2016-04-28] MEDS: LORAZEPAM 1 MG TAB PO PRN (03:44)
[2016-04-28] MEDS: METHYLPREDNISOLONE IV 80 MG in SYRINGE 0 ML IV SCH ×2 (06:17→14:30)
[2016-04-28] MEDS: LISINOPRIL 5 MG TAB PO SCH (08:01)
[2016-04-28] MEDS: PANTOprazole INJ 40 MG in SYRINGE 0 ML IV SCH ×2 (08:01→20:45)
[2016-04-28] MEDS: LORAZEPAM 2 MG/ML 1 ML VIAL IV PRN (08:08)
[2016-04-28] MEDS ORDERED: NICOTINE 14 MG/24 HR TDSY TD SCH (09:00)
[2016-04-28] MEDS ORDERED: FUROSEMIDE INJ 40 MG in SYRINGE 0 ML IV SCH (09:00)
[2016-04-28] MEDS ORDERED: GABAPENTIN 400MG X1 DOSE PO SCH (09:00)
[2016-04-28] MEDS: NICOTINE 14 MG/24 HR TDSY TD SCH (09:00)
--- NOTE | 2016-04-28 11:04 | Anesthesiology Progress Note ---
Anesthesia Progress Note Date of Service Apr 28, 2016. Progress Notes Pt was scheduled for colonoscopy today 04/28/16. Upon being admitted to the endo preop area, pt was noted to have audible wheezing. The pt was also noted to have afib with RVR, rate ranging from 100s-120s. On auscultation, the pt had noted wheezing throughout. I spoke with Dr. Roman and Dr. Whiteside. The pt needed further medical optimization prior to receiving his procedure. I spoke with the pt and he was understanding.
--- NOTE | 2016-04-28 12:59 | DIAGNOSTIC IMAGING REPORT ---
CHEST ONE VIEW PORTABLE HISTORY: eval for shortness of breath COMPARISON: Chest 04/23/2016. FINDINGS: The heart remains mildly enlarged. No pleural effusions. No pneumothorax. Punctate calcified granuloma within the right lung base, unchanged. Otherwise, lungs are clear. IMPRESSION: No significant change compared to the prior study. No acute process. Stable mild cardiomegaly. Electronically signed by: Alek Roblero M.D. 04/28/2016 12:58 PM Dictated Date/Time: 04/28/2016 12:56 PM
[2016-04-28] MEDS ORDERED: GABAPENTIN 600 MG TAB PO SCH (15:30)
[2016-04-28] MEDS ORDERED: LORAZEPAM 1 MG TAB PO PRN (15:30)
[2016-04-28] MEDS ORDERED: GABAPENTIN 600MG LOADING DOSE PO ONE (16:00)
--- NOTE | 2016-04-28 16:47 | Progress Note ---
Subjective Date of Service: Apr 28, 2016. Subjective pt did have ativan this am, pt was wheezy and colonoscopy postphones, hgb has been stable of late at bedside and questions answered Problem List Medical Problems: (1) Anemia Status: Acute (2) GI bleed Status: Acute (3) Left sided chest pain Status: Acute (4) Shortness of breath Status: Acute (5) Weakness Status: Acute Review of Systems Constitutional: No chills, No fatigue, No fever, No weakness Respiratory: + dyspnea on exertion, No cough, No shortness of breath Cardiac: + edema, No chest pain Abdomen: No diarrhea, No nausea, No pain, No vomiting Male : No dysuria, No urinary frequency Neurologic: + balance problems, + weakness Objective Vital Signs Date Time Temp Pulse Resp B/P Pulse Ox O2 Delivery O2 Flow Rate FiO2 04/28/16 07:31 105 20 95 Nasal Cannula 2.0 04/28/16 06:45 89 118/72 04/28/16 05:00 106 118/67 04/28/16 04:05 Nasal Cannula 2.0 04/28/16 02:47 36.3 118 24 110/71 97 Nasal Cannula 2.0 04/28/16 01:59 85 18 98 Nasal Cannula 2.0 04/28/16 00:52 125 127/82 04/28/16 00:47 125 20 127/82 98 Nasal Cannula 2.0 04/28/16 00:00 Nasal Cannula 2.0 04/27/16 23:07 36.7 105 24 135/88 98 Nasal Cannula 2.0 04/27/16 20:27 95 22 94 Room Air 04/27/16 20:00 Room Air 04/27/16 19:55 36.3 83 18 122/84 100 Nasal Cannula 2.0 04/27/16 16:00 Room Air 04/27/16 15:24 36.4 93 24 115/67 98 Room Air 04/27/16 15:00 84 22 94 Room Air 04/27/16 12:00 Room Air 04/27/16 11:10 83 20 96 Room Air 04/27/16 11:08 36.5 97 22 104/64 100 Room Air Physical Exam General Appearance: WD/WN, + mild distress Neck: supple, no JVD Respiratory/Chest: + decreased breath sounds, + accessory muscle use, + wheezing Cardiovascular: no murmur, + tachycardia Abdomen: normal bowel sounds, non tender, soft Extremities: + pedal edema, + swelling Assessment and Plan 65 y/o male shortness of breath and melena both subacute Acute blood loss anemia 2/2 melena/?esophageal varices: augmented by Betty EGD w/ Case on 04/24-- Z-line irregular. Gastritis- biopsied. Normal examined duodenum. Continue on PPI Colonoscopy planned for 04/28, but due to copd exac cancelled a.fib w/ episodes of RVR , Cardizem drip, will convert to po, Atenolol 100 mg BID COPD exacerbation, and tobacco abuse Xopenex and Atrovent aformoterol, nebulizer Solu-Medro 40 q 12 alcohol withdrawal, hx of Chronic Hyponatremia, consider thiamine and folate acid and multiple vitamin when he able to tolerate, ASWW protocol, librium and neurontin Hypertension, Lisinopril 5 mg daily Chronic venous stasis and bilateral lower extremity edema: Furosemide increase dose DVT Prophylaxis: FELIX/SCDs Withhold chemical prophylaxis due to GI bleeding Fall precaution, seizure precautions Code Status: FULL RESUSCITATION Continued [facility] stay due to: multiple IV medications needed Discharge planning: home
[2016-04-28] MEDS: FORMOTEROL FUMA NEBULIZER SOLN 20 MCG/2 ML VIAL INH SCH (19:20)
[2016-04-28] MEDS: CHLORDIAZEPOXIDE 25 MG CAP PO SCH (20:44)
[2016-04-28] MEDS: METHYLPREDNISOLONE IV 40 MG in SYRINGE 0 ML IV SCH (20:45)
[2016-04-28] MEDS: FUROSEMIDE INJ 40 MG in SYRINGE 0 ML IV SCH (20:45)
[2016-04-28] MEDS ORDERED: GABAPENTIN 100MG Q6H DOSE PO SCH (22:00)
[2016-04-29] VITALS (12 sets, daily range): BP systolic 101–114; BP diastolic 67–79; PULSE 72–110; TEMP 36.2–36.4; O2SAT 95–100
[2016-04-29] MEDS: IPRATROPIUM BROMIDE NEB SOLN 0.02% 2.5 ML VIAL INH SCH ×4 (02:43→19:49)
[2016-04-29] MEDS: LEVALBUTEROL 1.25MG/0.5ML NEB INH SCH ×4 (02:43→19:49)
[2016-04-29 06:34] LABS: HEMATOCRIT 24.5 % (42-52)
[2016-04-29] MEDS: FORMOTEROL FUMA NEBULIZER SOLN 20 MCG/2 ML VIAL INH SCH ×2 (08:06→19:49)
[2016-04-29] MEDS: CHLORDIAZEPOXIDE 25 MG CAP PO SCH ×3 (08:15→21:00)
[2016-04-29] MEDS: METHYLPREDNISOLONE IV 40 MG in SYRINGE 0 ML IV SCH (08:17)
[2016-04-29] MEDS: PANTOprazole INJ 40 MG in SYRINGE 0 ML IV SCH (08:17)
[2016-04-29] MEDS: FUROSEMIDE INJ 40 MG in SYRINGE 0 ML IV SCH ×2 (08:17→17:08)
[2016-04-29] MEDS: LISINOPRIL 5 MG TAB PO SCH (08:19)
[2016-04-29] MEDS: NICOTINE 14 MG/24 HR TDSY TD SCH (08:20)
[2016-04-29] MEDS ORDERED: GABAPENTIN 200MG X1 DOSE PO SCH (09:00)
[2016-04-29] MEDS ORDERED: NURSING VERBAL MED ORDER ONE (10:00)
[2016-04-29] MEDS ORDERED: DILTIAZEM HCL 180 MG CAPCR PO ONE (10:15)
--- NOTE | 2016-04-29 10:56 | Clinical Documentation Query ---
CLINICAL DOCUMENTATION QUERY GI bleed due to Eliquis therapy was well documented in EMR. As of late this documentation has fallen of the record. EGD made no mention of esophageal varicies and no signs of bleeding noted down to duodenum. Colonoscopy is pending but H/H has stabilized off anticoagulation therapy. In your clinical opinion is this patient being managed for: ( ) Likely GI bleed due to Eliquis therapy treated with DC of Eliquis, PRBC's, and GI consult. ( ) Other explanation of clinical findings (Please Explain) ( ) Unable to determine (Please Define) ( ) Need to Discuss ( ) Not Agree Please clarify and document your clinical opinion in the progress notes and discharge summary. Terms such as "probable", "suspected", "likely", "questionable", "possible", or "still to be ruled out" are acceptable. IF IN AGREEMENT, YOU MUST DOCUMENT ABOVE DIAGNOSTIC STATEMENT IN DAILY PROGRESS NOTES AND DISCHARGE SUMMARY. This document is not part of the patient's record. Thank You, Wilmar Valdivia RN [phone]
--- NOTE | 2016-04-29 18:09 | Progress Note ---
Subjective Date of Service: Apr 29, 2016. Subjective pt has improved but is slightly sedate, no current complaints Problem List Medical Problems: (1) Anemia Status: Acute (2) GI bleed Status: Acute (3) Left sided chest pain Status: Acute (4) Shortness of breath Status: Acute (5) Weakness Status: Acute Review of Systems Constitutional: No chills, No fever Respiratory: + cough, + dyspnea on exertion, + shortness of breath, No sputum Abdomen: No diarrhea, No pain, No vomiting Male : No dysuria, No urinary frequency Psychiatric: + anxiety, + depression symptoms, + substance abuse, No anhedonism Objective Vital Signs Date Time Temp Pulse Resp B/P Pulse Ox O2 Delivery O2 Flow Rate FiO2 04/29/16 15:50 36.3 91 16 114/79 98 Room Air 04/29/16 14:25 77 18 95 Room Air 04/29/16 12:02 36.4 77 18 98 04/29/16 10:51 36.4 77 18 101/67 98 Room Air 04/29/16 08:00 Room Air 04/29/16 07:09 36.4 80 18 110/75 100 Room Air 04/29/16 06:55 77 18 95 Room Air 04/29/16 04:27 Room Air 04/29/16 03:07 36.4 110 20 114/75 96 Room Air 04/29/16 02:44 72 18 95 Room Air 04/29/16 00:12 Room Air 04/28/16 23:05 36.3 111 24 104/68 94 Room Air 04/28/16 20:49 Room Air 04/28/16 19:20 83 20 98 Room Air 04/28/16 19:19 36.3 89 18 101/60 98 Room Air Physical Exam General Appearance: WD/WN, + mild distress Neck: supple, no JVD Respiratory/Chest: chest non-tender, + decreased breath sounds, + rhonchi Cardiovascular: regular rate, rhythm, + systolic murmur Abdomen: normal bowel sounds, non tender, soft Extremities: no pedal edema, no calf tenderness 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: alert, + disoriented Laboratory Results Last 24 Hours Test 04/29/16 05:57 Hemoglobin 8.0 g/dL Hematocrit 24.5 % Assessment and Plan 65 y/o male shortness of breath and melena both subacute Acute blood loss anemia 2/2 melena/?esophageal varices: augmented by BRENNAN Hernández w/ Case on 04/24-- Z-line irregular. Gastritis- biopsied. Normal examined duodenum. Continue on PPI Colonoscopy planned for 04/28, but due to copd exac cancelled a.fib w/ episodes of RVR , Cardizem drip, will convert to po cd 180, Atenolol 100 mg BID COPD exacerbation, and tobacco abuse Xopenex and Atrovent aformoterol, nebulizer Solu-Medro 40 q 12 alcohol withdrawal, hx of Chronic Hyponatremia, consider thiamine and folate acid and multiple vitamin when he able to tolerate, ASWW protocol, librium and neurontin Hypertension, Lisinopril 5 mg daily Chronic venous stasis and bilateral lower extremity edema: Furosemide increase dose DVT Prophylaxis: FELIX/SCDs Withhold chemical prophylaxis due to GI bleeding Fall precaution, seizure precautions Code Status: FULL RESUSCITATION Continued [facility] stay due to: multiple IV medications needed Discharge planning: home
[2016-04-30] VITALS (10 sets, daily range): BP systolic 101–136; BP diastolic 67–84; PULSE 76–94; TEMP 36.3–36.5; O2SAT 93–99
[2016-04-30] MEDS: LEVALBUTEROL 1.25MG/0.5ML NEB INH SCH ×4 (02:10→20:21)
[2016-04-30] MEDS: IPRATROPIUM BROMIDE NEB SOLN 0.02% 2.5 ML VIAL INH SCH ×4 (02:10→20:21)
[2016-04-30] MEDS: FORMOTEROL FUMA NEBULIZER SOLN 20 MCG/2 ML VIAL INH SCH ×2 (07:37→20:21)
[2016-04-30] MEDS: DILTIAZEM HCL 180 MG CAPCR PO SCH (10:18)
[2016-04-30] MEDS: CHLORDIAZEPOXIDE 25 MG CAP PO SCH (10:18)
[2016-04-30] MEDS: PANTOprazole SOD 40 MG TAB PO SCH (10:19)
[2016-04-30] MEDS: LISINOPRIL 5 MG TAB PO SCH (10:19)
[2016-04-30] MEDS: FUROSEMIDE INJ 40 MG in SYRINGE 0 ML IV SCH ×2 (10:19→18:33)
[2016-04-30] MEDS: NICOTINE 14 MG/24 HR TDSY TD SCH (10:20)
[2016-04-30] MEDS ORDERED: GABAPENTIN 600MG X1 DOSE PO SCH (15:30)
--- NOTE | 2016-04-30 17:48 | Progress Note ---
Subjective Date of Service: Apr 30, 2016. Subjective pt is doing better each day, is at bedside, pt is slighlty sedate but much better, if continues to improve, no respiratory sx will have home in next few days Problem List Medical Problems: (1) Anemia Status: Acute (2) GI bleed Status: Acute (3) Left sided chest pain Status: Acute (4) Shortness of breath Status: Acute (5) Weakness Status: Acute Review of Systems Constitutional: No chills, No fever Respiratory: No cough, No dyspnea on exertion, No shortness of breath Cardiac: No chest pain, No edema Abdomen: No constipation, No diarrhea, No nausea, No pain, No vomiting Male : No dysuria, No urinary frequency Psychiatric: + anxiety, + depression symptoms, + substance abuse Objective Vital Signs Date Time Temp Pulse Resp B/P Pulse Ox O2 Delivery O2 Flow Rate FiO2 04/30/16 15:07 36.3 88 18 136/84 99 Room Air 04/30/16 14:20 77 18 95 Room Air 04/30/16 08:36 99 Room Air 04/30/16 08:15 Room Air 04/30/16 07:52 36.5 81 14 124/72 99 Room Air 04/30/16 07:37 80 18 93 Room Air 04/30/16 02:10 76 18 98 Room Air 04/30/16 01:32 89 20 102/69 96 Room Air 04/30/16 00:50 Room Air 04/30/16 00:15 36.4 94 20 102/68 94 Room Air 04/29/16 21:02 102 114/77 04/29/16 19:56 36.2 82 18 105/68 98 Room Air 04/29/16 19:50 80 18 98 Room Air Physical Exam General Appearance: WD/WN, + mild distress Eyes: PERRL, EOMI Neck: supple, no JVD Respiratory/Chest: no respiratory distress, + decreased breath sounds Cardiovascular: regular rate, rhythm, no murmur Abdomen: normal bowel sounds, non tender, soft Laboratory Results Last 24 Hours Test 04/30/16 06:25 Hemoglobin 8.6 g/dL Hematocrit 26.0 % Assessment and Plan 65 y/o male shortness of breath and melena both subacute, likely gi bleed secondary to eliquis, treated with prbc and gi consult, stable Acute blood loss anemia 2/2 melena, augmented by BRENNAN Hernández w/ Case on -- Z-line irregular. Gastritis- biopsied. Normal examined duodenum. Continue on PPI Colonoscopy planned for 04/28, but due to copd exac cancelled, since hgb stable and gastritis seen, will treat and plan colonoscopy as outpt a.fib w/ episodes of RVR , Cardizem po cd 180, Atenolol 100 mg BID will not resume eilquis until colonoscopy, his CHADDscore is low, having hypertension, last echo showed good EF and on comment of DD, LE edema maybe be secondary to nutrition and liver disease COPD exacerbation, and tobacco abuse Xopenex and Atrovent aformoterol, nebulizer prednisone 40 mg po daily alcohol withdrawal,tapering librium wiht good success Hypertension, Lisinopril 5 mg daily Chronic venous stasis and bilateral lower extremity edema: Furosemide remains with some residual DVT Prophylaxis: FELIX/SCDs Withhold chemical prophylaxis due to GI bleeding Fall precaution, seizure precautions Code Status: FULL RESUSCITATION Continued [facility] stay due to: multiple IV medications needed Discharge planning: home
--- NOTE | 2016-04-30 19:30 | ECHOCARDIOGRAM REPORT ---
*NOTICE TO RECEIVING LIBERTARIAN AGENCY This information is strictly Confidential and protected under [place] law. [place] law prohibits you from making any further disclosure of this information unless further disclosure is expressly permitted by the written consent of the person to whom it pertains or is authorized by law. A general authorization for the release of medical or other information is not sufficient for this purpose. Hospital accepts no responsibility if the information is made available to any other person, INCLUDING THE PATIENT. Interpretation Summary * Name: BREEZY GUNN Study Date: 04/30/2016 08:02 AM BP: 124/72 mmHg * Patient Location: .[facility]\S\[id number]\1 HR: 81 * : 1950 (M/d/yyyy) Gender: Male Height: 67 in * Age: 65 yrs Ethnicity: [place] Weight: 259 lb * Ordering Physician: Romain Rankin * Performed By: Shobha Singleton RDCS * * Reason For Study: CHF * BSA: 2.3 m2 * -- Conclusions -- * 1. Normal left ventricular size and systolic function. EF 60-65%. No regional wall motion abnormalities. Severe concentric left ventricular hypertrophy. * 2. The right ventricle is moderate to severely dilated. The right ventricular systolic function is normal. * 3. Moderate biatrial dilation. * 4. Mild mitral regurgitation. * 5. Mildly elevated right ventricular systolic pressure; RVSP 39 mmHg. * 6. Compared to prior study on 01/30/2015, estimated RVSP is now mildly elevated. Procedure Details * A complete two-dimensional transthoracic echocardiogram was performed (2D, M-mode, Doppler and color flow Doppler). Left Ventricle * The left ventricle is normal in size. * There is severe concentric left ventricular hypertrophy. * Ejection Fraction = 60-65%. * Left ventricular systolic function is normal. * The left ventricular wall motion is normal. Right Ventricle * The right ventricle is moderate to severely dilated. * The right ventricular systolic function is normal as assessed by tricuspid annular plane systolic excursion (TAPSE) (normal >1.5 cm). * The right ventricular systolic function is normal. Atria * The left atrium is moderately dilated. * The right atrium is moderately dilated. * There is no evidence of atrial septal defect, but resolution does not allow assessment for a patent foramen ovale. Mitral Valve * The mitral valve is grossly normal. * There is no mitral valve stenosis. * There is mild mitral regurgitation. Tricuspid Valve * The tricuspid valve is not well visualized, but is grossly normal. * There is no tricuspid stenosis. * There is mild tricuspid regurgitation. Aortic Valve * The aortic valve is normal in structure and function. * The aortic valve is trileaflet. * No hemodynamically significant valvular aortic stenosis. * No aortic regurgitation is present. Pulmonic Valve * The pulmonary valve is inadequately visualized, but the Doppler data is adequate for interpretation. * There is no significant pulmonary regurgitation. Great Vessels * The aortic root is normal size. * Ascending aorta of normal dimension * Aortic arch of normal dimension. Pericardium/Pleural * There is no pericardial effusion. Great Vessels * IVC normal in size with reduced inspiratory collapse. MMode 2D Measurements and Calculations IVSd 1.6 cm LVIDd 4.0 cm LVIDs 2.6 cm LVPWd 1.6 cm IVS/LVPW 0.98 FS 33.4 % EDV(Teich) 68.7 ml ESV(Teich) 25.6 ml EF(Teich) 62.7 % EDV(cubed) 62.5 ml ESV(cubed) 18.5 ml EF(cubed) 70.4 % LV mass(C)d 249.2 grams LV mass(C)dI 110.4 grams/m\S\2 SV(Teich) 43.1 ml SI(Teich) 19.1 ml/m\S\2 SV(cubed) 44.0 ml SI(cubed) 19.5 ml/m\S\2 Ao root diam 3.4 cm Ao root area 9.1 cm\S\2 ACS 1.9 cm LA dimension 4.2 cm asc Aorta Diam 3.2 cm LA/Ao 1.2 LVAd ap4 20.7 cm\S\2 LVLd ap4 6.5 cm EDV(MOD-sp4) 55.8 ml EDV(sp4-el) 56.4 ml LVAs ap4 11.4 cm\S\2 LVLs ap4 5.5 cm ESV(MOD-sp4) 19.9 ml ESV(sp4-el) 20.0 ml EF(MOD-sp4) 64.3 % EF(sp4-el) 64.6 % LVAd ap2 31.1 cm\S\2 LVLd ap2 7.7 cm EDV(MOD-sp2) 105.5 ml EDV(sp2-el) 106.1 ml LVAs ap2 17.0 cm\S\2 LVLs ap2 6.2 cm ESV(MOD-sp2) 42.8 ml ESV(sp2-el) 39.9 ml EF(MOD-sp2) 59.4 % EF(sp2-el) 62.4 % LVLd %diff 16.6 % EDV(MOD-bp) 83.5 ml LVLs %diff 10.5 % ESV(MOD-bp) 30.2 ml EF(MOD-bp) 63.9 % SV(MOD-sp4) 35.9 ml SI(MOD-sp4) 15.9 ml/m\S\2 SV(MOD-sp2) 62.6 ml SI(MOD-sp2) 27.8 ml/m\S\2 SV(MOD-bp) 53.4 ml SI(MOD-bp) 23.7 ml/m\S\2 SV(sp4-el) 36.4 ml SI(sp4-el) 16.1 ml/m\S\2 SV(sp2-el) 66.2 ml SI(sp2-el) 29.3 ml/m\S\2 Doppler Measurements and Calculations MV E max violette 122.0 cm/sec MV dec time 0.20 sec Ao V2 max 123.4 cm/sec Ao max PG 6.1 mmHg Ao max PG (full) 3.2 mmHg LV V1 max PG 2.9 mmHg LV V1 max 85.4 cm/sec PA V2 max 93.4 cm/sec PA max PG 3.5 mmHg PA acc slope 600.4 cm/sec\S\2 PA acc time 0.10 sec TR max violette 276.7 cm/sec RVSP(TR) 38.7 mmHg RAP systole 8.0 mmHg PA pr(Accel) 33.2 mmHg
[2016-04-30] MEDS: CHLORDIAZEPOXIDE 10 MG CAP PO SCH (21:03)
[2016-05-01 01:57] VITALS: PULSE 80; O2SAT 96
[2016-05-01] MEDS: IPRATROPIUM BROMIDE NEB SOLN 0.02% 2.5 ML VIAL INH SCH ×3 (01:57→14:21)
[2016-05-01] MEDS: LEVALBUTEROL 1.25MG/0.5ML NEB INH SCH ×3 (01:57→14:22)
[2016-05-01 07:02] VITALS: BP 117/84; PULSE 78; TEMP 36.4; O2SAT 96
[2016-05-01] MEDS: FORMOTEROL FUMA NEBULIZER SOLN 20 MCG/2 ML VIAL INH SCH (07:51)
[2016-05-01 07:52] VITALS: PULSE 71; O2SAT 97
[2016-05-01] MEDS: DILTIAZEM HCL 180 MG CAPCR PO SCH (08:12)
[2016-05-01] MEDS: FUROSEMIDE INJ 40 MG in SYRINGE 0 ML IV SCH (08:12)
[2016-05-01] MEDS: LISINOPRIL 5 MG TAB PO SCH (08:15)
[2016-05-01] MEDS: PANTOprazole SOD 40 MG TAB PO SCH (08:15)
[2016-05-01] MEDS: NICOTINE 14 MG/24 HR TDSY TD SCH (08:16)
[2016-05-01] MEDS: CHLORDIAZEPOXIDE 10 MG CAP PO SCH (08:30)
[2016-05-01 12:00] VITALS: O2SAT 96
--- NOTE | 2016-05-01 12:47 | Cardiology Follow-Up ---
Subjective Date of Service: May 01, 2016. Pt evaluation today including: conversation w/ patient, physical exam, lab review, review of studies, review of inpatient medication list History of Present Illness He feels relatively well today, he seems to be much more conversational and aware of his surroundings today. He has no complaints of abdominal discomfort, chest discomfort or palpitations. He does not note any further bleeding. He feels that his breathing is improved. Social History Smoking Status: Current Every Day Smoker History of Alcohol Use: No (BEER) Review of Systems Respiratory: No cough, No dyspnea on exertion, No shortness of breath Cardiac: No chest pain, No edema No melena Medications Cardiovascular: Item Value Date Time Diltiazem HCl 180 mg 04/30/16 0900 (Cardizem Cd Cap) DAILY/PO 05/01/16 0812 Furosemide 40 mg/ 4 ml @ 4 mls/min 04/28/16 2100 Syringe BID17/IV 05/01/16 0812 Lisinopril 5 mg 04/26/16 0900 (Zestril Tab) DAILY/PO 05/01/16 0815 Atenolol 100 mg 04/25/16 2100 (Tenormin Tab) BID/PO 05/01/16 0813 Objective Vital Signs Past 12 Hours Date Time Temp Pulse Resp B/P Pulse Ox O2 Delivery O2 Flow Rate FiO2 05/01/16 08:00 Room Air 05/01/16 07:52 71 12 97 Room Air 05/01/16 07:02 36.4 78 16 117/84 96 Room Air 05/01/16 01:57 80 18 96 Room Air Last Recorded Weight-Kilograms: 117.200 Intake & Output 8-Hour Column 04/30/16 05/01/16 05/01/16 16:00 00:00 08:00 Intake Total 440 ml 300 ml Balance 440 ml 300 ml 24-Hour Column 05/01/16 08:00 Intake Total 740 ml Balance 740 ml Physical Exam Constitutional: Level of Distress: NAD Lungs: Auscultation: expiratory wheezing Cardiovascular: Heart Auscultation: irregular rate rhythm Data Laboratory Results: Last 24 Hours Test 05/01/16 05:44 Hemoglobin 8.5 g/dL Hematocrit 26.0 % Imaging: Echocardiography shows normal left ventricular size and function with severe left ventricular hypertrophy. The right ventricle is moderately to severely dilated with normal systolic function. There is only mildly elevated right ventricular systolic pressure. Assessment and Plan #1. Atrial fibrillation: He remains in atrial fibrillation however his rate is well controlled now on his oral medications. #2. Anticoagulation status: At this point he should not be on anticoagulants, I agree with the plan for outpatient colonoscopy and then reevaluation of anticoagulation. I will arrange for cardiology follow-up in several weeks. Thank you for allowing me to participate in his care.
[2016-05-01] MEDS ORDERED: CNT PO (12:49)
[2016-05-01] MEDS ORDERED: IPRA1AER2 INH (12:49)
[2016-05-01] MEDS ORDERED: CRDCD180 PO (12:49)
[2016-05-01] MEDS ORDERED: PRT40 PO (12:49)
[2016-05-01] MEDS ORDERED: PRED10TA PO (12:49)
--- NOTE | 2016-05-01 12:52 | Discharge Instructions ---
Discharge Instructions Date of Service May 01, 2016. Admission Reason for Admission: Gi Bleed Discharge Discharge Diagnosis / Problem: GiBleed associated with eliquis use requiring transfusion Discharge Goals Goal(s): Diagnostic testing, Therapeutic intervention Activity Recommendations Activity Limitations: resume your previous activity Please avoid any alcohol use and stop smoking Take a multivitamin with iron daily Please have follow up colonoscopy to determine if safe to restart Eliquis Please follow up with family doctor and Dr Garcia IF you have a combivent inhaler at home you do not need to fill the Rx given to the pharmacy at time of discharge but can keep it on file for future needs . Current Hospital Diet Patient's current hospital diet: Regular Diet Discharge Diet Recommended Diet: Regular Diet Procedures Procedures Performed: EGD with gastric antrum bx Pending Studies Studies pending at discharge: no Medical Emergencies . Who to Call and When: Medical Emergencies: If at any time you feel your situation is an emergency, please call 911 immediately. . Non-Emergent Contact Non-Emergency issues call your: Primary Care Provider, Associate Financial Analyst, Cover Inspector Call Non-Emergent contact if: temperature is above 101 . . "Provider Documentation" section prepared by Santos Whiteside. VTE Core Measure Inpt VTE Proph given/why not?: T.E.D. Stockings, SCD's, Contraindicated
[2016-05-01 13:20] VITALS: BP 117/84; PULSE 71; TEMP 36.4; O2SAT 96
[2016-05-01] MEDS ORDERED: GABAPENTIN 400MG X1 DOSE PO SCH (15:30)
--- NOTE | 2016-05-01 17:50 | Discharge Summary ---
Discharge Summary Date of Service May 01, 2016. Discharge Summary Admission Date: Apr 23, 2016 at 15:33 Discharge Date: May 01, 2016 Discharge Disposition: Home Principal Diagnosis: eliquis associate GIB, prbc infusion, alcohol withdrawal Immunizations: Have You Had Influenza Vaccine: N/A History of Tetanus Vaccine?: 4-5 YEARS AGO History of Pneumococcal: Yes History of Hepatitis B Vaccine: No Medication Reconciliation New Medications: Ipratropium-Albuterol (Combivent Respimat) 1 Aer Aer 2 PUFFS INH QID, #1 INH Multivitamins/Minerals (Certavite/Antioxidants) 1 Tab Tab 1 TAB PO DAILY, #365 % Prednisone (Prednisone) 10 Mg Tab 10 MG PO UD, #42 TAB 4 pills a day for 4 days then 3 pills a day for 4 days then 2 pills a day for 4 days then 1 pill a day Diltiazem HCl (Diltiazem HCl ER) 180 Mg Capcr 180 MG PO DAILY, #90 DOSE 3 Refills Pantoprazole (Pantoprazole Sodium) 40 Mg Tab 40 MG PO QAM, #90 TAB Continued Medications: Atenolol (Tenormin) 100 Mg Tab 100 MG PO BID, #60 Furosemide (Furosemide) 20 Mg Tab 20 MG PO BID Lisinopril (Zestril) 5 Mg Tab 5 MG PO DAILY, TAB Discontinued Medications: Apixaban (Eliquis) 5 Mg Tab 5 MG PO BIDM Folic Acid (Folic Acid) 1 Mg Tab 7 MG PO QAM Discharge Exam Review of Systems: Constitutional: No chills, No fever Respiratory: No cough, No sputum, No wheezing Cardiovascular: + edema, No chest pain, No orthopnea Abdomen: No nausea, No pain, No vomiting Musculoskeletal: No joint pain, No muscle pain Genitourinary - Male: No dysuria, No hematuria Neurologic: No memory loss, No paralysis Physical Exam: General Appearance: WD/WN, no apparent distress Neck: supple, no JVD Respiratory/Chest: chest non-tender, lungs clear, normal breath sounds Cardiovascular: regular rate, rhythm, no murmur Abdomen / GI: normal bowel sounds, non tender, soft Extremities: normal range of motion, + pedal edema 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: alert, oriented x 3 Hospital Course 65 y/o male shortness of breath and melena both subacute, likely gi bleed secondary to eliquis, treated with prbc and gi consult, stable Acute blood loss anemia 2/2 melena, augmented by BRENNAN Hernández w/ Dr. Roman on -- Z-line irregular. Gastritis- biopsied. Normal examined duodenum. Continue on PPI Colonoscopy planned for 04/28, but due to copd exac cancelled, since hgb stable and gastritis seen, will treat and plan colonoscopy as outpt scheduled for05/05 a.fib w/ episodes of RVR , Cardizem po cd 180, Atenolol 100 mg BID will not resume eilquis until colonoscopy, his CHADDscore is low, having hypertension, last echo showed good EF dr jung will follow up as outpt and reconsider if eliquis is a good choice after colonoscopy is done LE edema maybe be secondary to nutrition and liver disease as commented on CT COPD exacerbation, and tobacco abuse combivent, prednisone 40 mg po daily with taper alcohol withdrawal completed librium Hypertension, Lisinopril 5 mg daily Code Status: FULL RESUSCITATION Total Time Spent: Greater than 30 minutes This includes examination of the patient, discharge planning, medication reconciliation, and communication with other providers. Discharge Instructions Please refer to the electronic Patient Visit Report (Discharge Instructions) for additional information. Additional Copies To Cameron Roman D.O.; oSlitario Jung M.D.
[2016-05-02] MEDS ORDERED: DILT-113 PO (10:49)
[2016-05-02] MEDS ORDERED: LISI20TA3 PO (10:49)
[2016-05-02] MEDS ORDERED: MULT-506 PO (10:49)
[2016-05-02] MEDS ORDERED: GABAPENTIN 200MG X1 DOSE PO SCH (15:30)
[2016-05-05] MEDS ORDERED: NCDT21X TOP (14:33)
[2016-05-11] MEDS ORDERED: ZRX5 PO (12:26)
[2016-05-11] MEDS ORDERED: FURO40TA3 PO (12:26)
[2016-05-11] MEDS ORDERED: MCRK20 PO (12:26)
[2016-08-19] MEDS ORDERED: FLV1 PO (11:56)
[2016-08-19] MEDS ORDERED: ATEN100T PO (13:52)
== END 2016-05-01 14:49 | disposition home or self-care (01) | DRG 813 ==
LOC: ENRESERVTM → ENRESERVDT → EDBD 13:40 → C.EDA 13:41 → C.MED 15:33 → C.2T 04-25 20:37 → C.MED 04-29 12:13 → C.MSW 04-30 00:49
PROVIDERS: ADMIT Hospitalist; ATTEND Internal Medicine
PROC: 0DB68ZX Excision of Stomach, Via Natural or Artificial Opening Endoscopic, Diagnostic (ICD-10-PCS; principal; 2016-04-24 13:18)
DX: D68.32 Hemorrhagic disorder due to extrinsic circulating anticoagulants (principal); K92.1 Melena; D62 Acute posthemorrhagic anemia; T45.515A Adverse effect of anticoagulants, initial encounter; E87.1 Hypo-osmolality and hyponatremia; I48.1 Persistent atrial fibrillation; J44.1 Chronic obstructive pulmonary disease with (acute) exacerbation; K29.71 Gastritis, unspecified, with bleeding; F10.239 Alcohol dependence with withdrawal, unspecified; F17.210 Nicotine dependence, cigarettes, uncomplicated; I10 Essential (primary) hypertension; E78.00 Pure hypercholesterolemia, unspecified; I48.2 Chronic atrial fibrillation; I87.8 Other specified disorders of veins; Y92.009 Unspecified place in unspecified non-institutional (private) residence as the place of occurrence of the external cause

== ENCOUNTER → 2016-05-05 | Day surgery (SDC) | payer BC ==
[2016-05-02 10:49] VITALS: Ht 170.2 cm; Wt 113.6 kg
[~2016-05-05] VITALS: Ht 170.2 cm; Wt 113.6 kg
[~2016-05-05] MED LIST changes: +ATEN100T PO; -CHOL100027 PO; -CRFUDL PO; -CYAN500T13 PO; +DILT-113 PO; +FRS/40 PO; +FURO40TA3 PO; +IPRA1AER2 INH; -LBR25 PO; +LIDOCAINE HCL 2% 2 ML VIAL (20MG/ML) ONE; -LISI-729 PO; +LISI20TA3 PO; +LSX20 PO; +MCRK20 PO; +METO5TAB25 PO; -MISC1CAP60 PO; +MULT-506 PO; +NCDT21X TOP; +NICO21DI4 TOP; +PANT40TA PO; +POTA-65 PO; +POTA20TA16 PO; +PRED10TA PO; +PROPOFOL IV EMULSION 10 MG/ML 20 ML VIAL IV ONE; +PRT/40 PO; +PRT40 PO; +SODI1TAB PO; +SODIUM CHLORIDE 0.9% 500ML 500 ML IV ONE; +SPR25 PO; -TNR50 PO; +ZRX5 PO
--- NOTE | 2016-05-05 14:59 | Endo History and Physical ---
History & Physical Date of Service: May 05, 2016. Chief Complaint: GI bleed Referring Physician: Dr. Santos History of Present Illness 65 yo CM who presents for colonoscopy secondary to GI bleeding. Past Medical History Atrial Fibrillation, Asthma, Seizure Disorder, CVA/TIA Past Surgical History Hx Cardiac Surgery: No Hx Internal Defibrillator: No Hx Pacemaker: No Hx Abdominal Surgery: No Hx of Implantable Prosthesis: No Hx Post-Op Nausea and Vomiting: No Hx Cancer Surgery: No Hx Thoracic Surgery: No Hx Orthopedic: No Hx Urinary Tract Surgery: No Family History None Social History Smoking Status: Former Smoker Hx Substance Use: No Hx Alcohol Use: No (RECENTLY STOPPED, WAS DRINKING 5-6 BEERS DAILY) Allergies Coded Allergies: No Known Allergies (Verified , 05/05/16) Current Medications Reported Home Medications Medications Dose Route/Sig Max Daily Dose Days Date Category Dose Instructions Nicoderm Cq 21MG Patch (Nicotine) 1 Patch Tdsy 1 Patch TOP DAILY 28 05/05/16 Reported Tiazac (Diltiazem HCl) 180 Mg Capcr 180 Mg PO QAM 05/02/16 Reported Multivitamin (Multivitamins) Tab 1 Tab PO QAM 05/02/16 Reported Prinivil (Lisinopril) 20 Mg Tab 20 Mg PO QAM 05/02/16 Reported Prednisone 10 Mg Tab 10 Mg PO UD 05/01/16 Rx 4 pills a day for 4 days then 3 pills a day for 4 days then 2 pills a day for 4 days then 1 pill a day Combivent Respimat (Ipratropium-Albuterol) 1 Aer Aer 2 Puffs INH QID 05/01/16 Rx Pantoprazole Sodium (Pantoprazole) 40 Mg Tab 40 Mg PO QAM 05/01/16 Rx Tenormin (Atenolol) 100 Mg Tab 100 Mg PO BID 04/23/16 Reported Furosemide 20 Mg Tab 20 Mg PO BID 04/23/16 Reported Vital Signs Weight (Kilograms): 113.64 Height (Feet): 5 Height (Inches): 7 Date Time Temp Pulse Resp B/P Pulse Ox O2 Delivery O2 Flow Rate FiO2 05/05/16 14:37 36.6 72 20 110/54 97 Room Air Physical Exam General Appearance: WD/WN, no apparent distress Respiratory/Chest: Auscultation: breath sounds normal Cardiovascular: Heart Auscultation: RRR Abdomen: Bowel Sounds: normal Inspection & Palpation: soft, non-distended, no tenderness, guarding & rebound Assessment and Plan Assessment: 65 yo CM who presents for colonoscopy secondary to GI bleeding. Plan: Proceed with colonoscopy.
--- NOTE | 2016-05-05 15:36 | Discharge Instructions ---
Endoscopy Patient Instructions Date / Procedure(s) Performed May 05, 2016. Colonoscopy Allergy Information Coded Allergies: No Known Allergies (Verified , 05/05/16) Discharge Date / Findings May 05, 2016. Diverticulosis Internal hemorrhoids Medication Instructions Stopped Medication(s): Patient was told to stop lasix and vitamins OK to resume all medications today as prescribed. Reported Home Medications Medications Dose Route/Sig Max Daily Dose Days Date Category Dose Instructions Nicoderm Cq 21MG Patch (Nicotine) 1 Patch Tdsy 1 Patch TOP DAILY 28 05/05/16 Reported Tiazac (Diltiazem HCl) 180 Mg Capcr 180 Mg PO QAM 05/02/16 Reported Multivitamin (Multivitamins) Tab 1 Tab PO QAM 05/02/16 Reported Prinivil (Lisinopril) 20 Mg Tab 20 Mg PO QAM 05/02/16 Reported Prednisone 10 Mg Tab 10 Mg PO UD 05/01/16 Rx 4 pills a day for 4 days then 3 pills a day for 4 days then 2 pills a day for 4 days then 1 pill a day Combivent Respimat (Ipratropium-Albuterol) 1 Aer Aer 2 Puffs INH QID 05/01/16 Rx Pantoprazole Sodium (Pantoprazole) 40 Mg Tab 40 Mg PO QAM 05/01/16 Rx Tenormin (Atenolol) 100 Mg Tab 100 Mg PO BID 04/23/16 Reported Furosemide 20 Mg Tab 20 Mg PO BID 04/23/16 Reported Provider Instructions Activity Restrictions - No exercising or heavy lifting for 24 hours. - Do not drink alcohol the day of the procedure. - Do not drive a car or operate machinery until the day after the procedure. - Do not make any important decisions or sign important papers in 24 hours after the procedure. Following Day: - Return to full activity which may include returning to work/school. Diet Start your diet with liquids and light foods (jello, soup, juice, toast). Then eat your usual diet if not nauseated. Treatment For Common After Affects For mild abdominal pain, bloating, or excessive gas: - Rest - Eat lightly - Lie on right side Follow-Up Information Follow-up with Dr. Santos as scheduled Anesthesia Information What You Should Know You have had a procedure that required some medicine to reduce anxiety and discomfort. This treatment is called moderate sedation. After receiving the treatment, you may be sleepy, but you will be able to breathe on your own. The effects of the treatment may last for several hours. Follow these instructions along with Activity/Diet recommendations noted above: * Do NOT do anything where dizziness or clumsiness would be dangerous. * Rest quietly at home today, then you can be up and about tomorrow. * Have a responsible person stay with you the rest of today. * You may have had an I.V. today. If so, you may take the dressing off later today. Recommendations Call your doctor if: * Trouble breathing * Continuous vomiting for more than 24 hours * Temperature above 101 degrees * Severe abdominal pain or bloating * Pain not relieved by pain medicine ordered * There is increased drainage or redness from any incision * A large amount of rectal bleeding greater than 2-3 tablespoons. (If you had a polyp/s removed or have hemorrhoids, a small amount of blood - from the rectum is to be expected.) * You have any unanswered questions or concerns. IN THE EVENT OF A SERIOUS EMERGENCY, GO TO THE NEAREST EMERGENCY ROOM Your discharge instructions were prepared by provider Cameron Roman. Patient Instructions Signature Page Santos Zarco Patient (or Guardian) Signature/Date: I have read and understand the instructions given to me by my caregivers. Caregiver/RN/Doctor Signature/Date: The above-named patient and/or guardian has received patient instructions on this date. + Original Patient Signature Page (only) stays with chart. Please make copy for patient.
--- NOTE | 2016-05-05 15:42 | GI REPORT ---
Procedure Date: 05/05/2016 3:04 PM Procedure: Colonoscopy Indications: Gastrointestinal bleeding Medicines: Monitored Anesthesia Care Complications: No immediate complications. Estimated Blood Loss: Estimated blood loss: none. Procedure: Pre-Anesthesia Assessment: - Prior to the procedure, a History and Physical was performed, and patient medications and allergies were reviewed. The patient's tolerance of previous anesthesia was also reviewed. The risks and benefits of the procedure and the sedation options and risks were discussed with the patient. All questions were answered, and informed consent was obtained. Prior Anticoagulants: The patient has taken no previous anticoagulant or antiplatelet agents. ASA Grade Assessment: III - A patient with severe systemic disease. After reviewing the risks and benefits, the patient was deemed in satisfactory condition to undergo the procedure. After I obtained informed consent, the scope was passed under direct vision. Throughout the procedure, the patient's blood pressure, pulse, and oxygen saturations were monitored continuously. The scope was introduced through the anus and advanced to the terminal ileum. The colonoscopy was performed without difficulty. The patient tolerated the procedure well. The quality of the bowel preparation was good. The terminal ileum, ileocecal valve, appendiceal orifice, and rectum were photographed. Findings: Multiple small-mouthed diverticula were found in the sigmoid colon. Non-bleeding internal hemorrhoids were found during retroflexion. The hemorrhoids were small. Impression: - Diverticulosis in the sigmoid colon. - Non-bleeding internal hemorrhoids. - No specimens collected. Recommendation: - Resume previous diet. - Continue present medications. - Repeat colonoscopy in 10 years for surveillance. - Return to primary care physician as previously scheduled. Cameron Roman, 05/05/2016 3:42:02 PM This report has been signed electronically. Note Initiated On: 05/05/2016 3:04 PM I attest to the content of the Intraoperative Record and orders documented therein, exceptions below
--- NOTE | 2016-05-05 16:05 | Anesthesiology Progress Note ---
Anesthesia Post Op Note Date & Time May 05, 2016 at 16:05 Vital Signs Pain Intensity: 0 Vital Signs Past 12 Hours Date Time Temp Pulse Resp B/P Pulse Ox O2 Delivery O2 Flow Rate FiO2 05/05/16 15:55 87 18 125/82 99 Room Air 05/05/16 15:40 82 16 102/52 97 Room Air 05/05/16 14:37 36.6 72 20 110/54 97 Room Air Notes Mental Status: alert / awake / arousable, participated in evaluation Pt Amnestic to Procedure: Yes Nausea / Vomiting: adequately controlled Pain: adequately controlled Airway Patency, RR, SpO2: stable & adequate BP & HR: stable & adequate Hydration State: stable & adequate Anesthetic Complications: no major complications apparent
[2016-05-05 16:10] VITALS: BP 146/67; PULSE 86; O2SAT 98
== END | disposition home or self-care (01) ==
LOC: C.GI 14:07
PROVIDERS: ATTEND Internal Medicine
DX: K92.2 Gastrointestinal hemorrhage, unspecified (principal); K57.30 Diverticulosis of large intestine without perforation or abscess without bleeding; K64.8 Other hemorrhoids; J44.9 Chronic obstructive pulmonary disease, unspecified; I48.91 Unspecified atrial fibrillation; I10 Essential (primary) hypertension; J45.909 Unspecified asthma, uncomplicated; E66.9 Obesity, unspecified; Z86.73 Personal history of transient ischemic attack (TIA), and cerebral infarction without residual deficits; Z87.891 Personal history of nicotine dependence; Z68.39 Body mass index [BMI] 39.0-39.9, adult

== ENCOUNTER 2016-05-08 11:18 | Observation (INO) | payer BC ==
[~2016-05-08] VITALS: Ht 170.2 cm; Wt 120.0 kg
[~2016-05-08 11:18] MED LIST changes: -APIX1TAB3 PO; -ATEN100T PO; -FLV1 PO; -FRS/40 PO; -FURO40TA3 PO; -LIDOCAINE HCL 2% 2 ML VIAL (20MG/ML) ONE; -MCRK20 PO; -METO5TAB25 PO; -NICO21DI4 TOP; -PANT40TA PO; -POTA-65 PO; -POTA20TA16 PO; -PROPOFOL IV EMULSION 10 MG/ML 20 ML VIAL IV ONE; -PRT/40 PO; -SODI1TAB PO; -SODIUM CHLORIDE 0.9% 500ML 500 ML IV ONE; -SPR25 PO; -ZRX5 PO
[2016-05-08] MEDS ORDERED: APIX1TAB3 PO (11:56)
--- NOTE | 2016-05-08 12:24 | DIAGNOSTIC IMAGING REPORT ---
CHEST ONE VIEW PORTABLE CLINICAL HISTORY: Weakness COMPARISON STUDY: 04/28/2016 FINDINGS: The heart is enlarged. There is no focal pulmonary consolidation. There are no pleural effusions. There is no failure.[ IMPRESSION: Cardiomegaly. No acute findings. Electronically signed by: Rolo Guillen M.D. 05/08/2016 12:23 PM Dictated Date/Time: 05/08/2016 12:22 PM
[2016-05-08 12:26] LABS: COMPLETE YES; EOS % 1.4 %; HEMATOCRIT 28.8 % (42-52); IG% 0.2 %; LYMPH % 12.3 %; LYMPH ABS # 0.99 K/uL (1.2-3.4); MEAN CELL VOLUME 89.7 fL (80-100); MEAN CORPUSCULAR HEMOGLOBIN 29.9 pg (25-34); MEAN CORPUSCULAR HGB CONC 33.3 g/dl (32-36); MEAN PLATELET VOLUME 10.1 fL (7.4-10.4); MONO % 12.7 %; NEUT % 73.4 %; PLATELET COUNT 225 K/uL (130-400); RED BLOOD COUNT 3.21 M/uL (4.7-6.1); WHITE BLOOD COUNT 8.06 K/uL (4.8-10.8)
[2016-05-08 12:41] LABS: INR 1.2 (0.9-1.1); PROTHROMBIN TIME (PATIENT) 13.2 SECONDS (9.0-12.0)
[2016-05-08 12:49] LABS: BLOOD UREA NITROGEN 10 mg/dl (7-18); BUN/CREATININE RATIO 12.1 (10-20); CALCIUM 8.2 mg/dl (8.5-10.1); CARBON DIOXIDE 33 mmol/L (21-32); CHLORIDE 95 mmol/L (98-107); GLUCOSE 99 mg/dl (70-99); POTASSIUM 3.3 mmol/L (3.5-5.1); SODIUM 136 mmol/L (136-145)
[2016-05-08 12:59] LABS: ALKALINE PHOSPHATASE 107 U/L (45-117); ALT/SGPT 54 U/L (12-78); AST/SGOT 44 U/L (15-37); CKMB/CK RATIO 2.4 (0-3.0)
[2016-05-08] MEDS ORDERED: FUROSEMIDE 40 MG/4 ML VIAL IV STA (13:11)
[2016-05-08] MEDS ORDERED: PNEUMOCOCCAL POLYSACCHARIDES 25 MCG/0.5 ML VIAL/SYR IM. ONE (14:00)
[2016-05-08] MEDS ORDERED: POLYETHYLENE (MIRALAX) 17 GM PACK PO PRN (14:00)
[2016-05-08] MEDS ORDERED: ACETAMINOPHEN 325 MG TAB PO PRN (14:00)
[2016-05-08] MEDS ORDERED: ONDANSETRON INJ 2 MG/ML 2 ML VIAL IV PRN (14:00)
[2016-05-08] MEDS ORDERED: INFLUENZA VIRUS QUAD VACCINE 0.5 ML SYR IM. ONE (14:00)
[2016-05-08] MEDS ORDERED: IV FLUIDS COMPLETED PRN (14:30)
[2016-05-08 14:46] LABS: URINE APPEARANCE CLEAR (CLEAR); URINE BILIRUBIN NEG (NEG); URINE COLOR YELLOW; URINE NITRITE NEG (NEG); URINE SPECIFIC GRAVITY 1.006 (1.000-1.030); UROBILINOGEN NEG (NEG)
[2016-05-08 14:58] LABS: MANUAL MICROSCOPIC REQUIRED? NO; REVIEW REQ? NO
--- NOTE | 2016-05-08 15:10 | EMERGENCY ROOM VISIT NOTE ---
History Report prepared by Nick: Tatyana Eugene Under the Supervision of: Dr. Julio Cesar Peña M.D. First contact with patient: 11:48 Chief Complaint: REFERRED BY DOCTOR Stated Complaint: ADMISSION/SENT BY DOCTOR History of Present Illness The patient is a 65 year old male who presents to the Emergency Room with complaints of persistent weight gain that occurred over the past week. Per records the patient has gained over 6 kg since his discharge on 05/01/16. Records note that the patient was evaluated for a GI bleed and anemia. Records note that the patient was transfused and providers feel that his GI bleed was related to taking Eliquis. Today the patient notes increased leg swelling, shortness of breath, and chest pain. The patient states that his shortness of breath is worsened with exertion. He states that he has restarted his Eliquis. The patient states that his melena has resolved. He additionally associates lower back pain with his symptoms today. The patient states that he takes a diuretic, noting that it was changed two months ago. Pt denies LOC, headache, fevers, chills, diaphoresis, visual changes, neck pain, nausea, vomiting, abdominal pain, melena, hematochezia, urinary symptoms, numbness, weakness, lymphadenopathy, rash, or other complaints. Old records were reviewed and the patient was 5L positive fluids upon discharge. Source of History: patient, other (records) Onset: past week Position: other (global) Symptom Intensity: 6 Kg Quality: other (weight gain) Timing: other (persistent) Associated Symptoms: + SOB, + back pain, + chest pain Note: Associated Symptoms: leg swelling Review of Systems See HPI for pertinent positives and negatives. A total of ten systems were reviewed and were otherwise negative. Past Medical & Surgical Medical Problems: (1) Atrial Fibrillation (2) Cellulitis of leg (3) Chest pain (4) CHF exacerbation (5) COPD exacerbation (6) Hypertension Nos (7) Pure Hypercholesterolem (8) Tobacco Use Disorder Family History Hypertension Social History Smoking Status: Former Smoker Alcohol Use: heavy Drug Use: none Marital Status: Occupation Status: employed Current/Historical Medications Scheduled Apixaban (Eliquis), 5 MG PO BID Atenolol (Tenormin), 100 MG PO BID Diltiazem Hcl Ext Rel (Tiazac), 180 MG PO QAM Folic Acid (Folic Acid), 7 MG PO DAILY Furosemide (Furosemide), 20 MG PO BID Ipratropium-Albuterol (Combivent Respimat), 2 PUFFS INH QID Lisinopril (Prinivil), 20 MG PO QAM Multivitamin (Multivitamin), 1 TAB PO QAM Nicotine (Nicoderm Cq 21MG Patch), 1 PATCH TOP DAILY Pantoprazole (Pantoprazole Sodium), 40 MG PO QAM Prednisone (Prednisone), 10 MG PO UD Allergies Coded Allergies: No Known Allergies (Verified , 05/08/16) Physical Exam Vital Signs Date Time Temp Pulse Resp B/P Pulse Ox O2 Delivery O2 Flow Rate FiO2 05/08/16 13:28 83 20 108/79 99 Room Air 05/08/16 12:20 75 05/08/16 12:08 100 Room Air 05/08/16 12:07 97 Room Air 05/08/16 11:29 36.4 93 20 101/65 94 Room Air Physical Exam GENERAL: Awake, alert, well-appearing, in no distress HENT: Normocephalic, atraumatic. Oropharynx unremarkable. EYES: Normal conjunctiva. Sclera non-icteric. NECK: Supple. No nuchal rigidity. FROM. No JVD. RESPIRATORY: Clear to auscultation. CARDIAC: Regular rate, normal rhythm. Extremities warm and well perfused. Pulses equal. ABDOMEN: Soft, non-distended. No tenderness to palpation. No rebound or guarding. No masses. RECTAL: Deferred. MUSCULOSKELETAL: Chest examination reveals no tenderness. No joint edema. LOWER EXTREMITIES: 3+ pitting edema with chronic venous discoloration. Calves are equal size bilaterally and non-tender. NEURO: Normal sensorium. No sensory or motor deficits noted. SKIN: No rash or jaundice noted. Medical Decision & Procedures ER Provider Diagnostic Interpretation: X-ray: Per my interpretation, radiologist review. CHEST ONE VIEW PORTABLE CLINICAL HISTORY: Weakness COMPARISON STUDY: 04/28/2016 FINDINGS: The heart is enlarged. There is no focal pulmonary consolidation. There are no pleural effusions. There is no failure.[ IMPRESSION: Cardiomegaly. No acute findings. Electronically signed by: Rolo Guillen M.D. 05/08/2016 12:23 PM Dictated Date/Time: 05/08/2016 12:22 PM Laboratory Results 05/08/16 12:06 Red Blood Count 3.21, Mean Corpuscular Volume 89.7, Mean Corpuscular Hemoglobin 29.9, Mean Corpuscular Hemoglobin Concent 33.3, Mean Platelet Volume 10.1, Neutrophils (%) (Auto) 73.4, Lymphocytes (%) (Auto) 12.3, Monocytes (%) (Auto) 12.7, Eosinophils (%) (Auto) 1.4, Basophils (%) (Auto) 0.0, Neutrophils # (Auto ) 5.92, Lymphocytes # (Auto) 0.99, Monocytes # (Auto) 1.02, Eosinophils # (Auto ) 0.11, Basophils # (Auto) 0.00 05/08/16 12:06 Test 05/08/16 12:06 05/08/16 14:20 White Blood Count 8.06 K/uL (4.8-10.8) Red Blood Count 3.21 M/uL (4.7-6.1) Hemoglobin 9.6 g/dL (14.0-18.0) Hematocrit 28.8 % (42-52) Mean Corpuscular Volume 89.7 fL (80-100) Mean Corpuscular Hemoglobin 29.9 pg (25-34) Mean Corpuscular Hemoglobin Concent 33.3 g/dl (32-36) Platelet Count 225 K/uL (130-400) Mean Platelet Volume 10.1 fL (7.4-10.4) Neutrophils (%) (Auto) 73.4 % Lymphocytes (%) (Auto) 12.3 % Monocytes (%) (Auto) 12.7 % Eosinophils (%) (Auto) 1.4 % Basophils (%) (Auto) 0.0 % Neutrophils # (Auto) 5.92 K/uL (1.4-6.5) Lymphocytes # (Auto) 0.99 K/uL (1.2-3.4) Monocytes # (Auto) 1.02 K/uL (0.11-0.59) Eosinophils # (Auto) 0.11 K/uL (0-0.5) Basophils # (Auto) 0.00 K/uL (0-0.2) RDW Standard Deviation 52.8 fL (36.4-46.3) RDW Coefficient of Variation 16.1 % (11.5-14.5) Immature Granulocyte % (Auto) 0.2 % Immature Granulocyte # (Auto) 0.02 K/uL (0.00-0.02) Prothrombin Time 13.2 SECONDS (9.0-12.0) Prothromb Time International Ratio 1.2 (0.9-1.1) Activated Partial Thromboplast Time 25.7 SECONDS (21.0-31.0) Partial Thromboplastin Ratio 1.0 Anion Gap 8.0 mmol/L (3-11) Est Creatinine Clear Calc Drug Dose 112.4 ml/min Estimated GFR () 107.9 Estimated GFR (Non- 93.1 BUN/Creatinine Ratio 12.1 (10-20) Calcium Level 8.2 mg/dl (8.5-10.1) Magnesium Level 2.0 mg/dl (1.8-2.4) Total Bilirubin 1.0 mg/dl (0.2-1) Direct Bilirubin 0.4 mg/dl (0-0.2) Aspartate Amino Transf (AST/SGOT) 44 U/L (15-37) Alanine Aminotransferase (ALT/SGPT) 54 U/L (12-78) Alkaline Phosphatase 107 U/L (45-117) Total Creatine Kinase 92 U/L (39-308) Creatine Kinase MB 2.2 ng/ml (0.5-3.6) Creatine Kinase MB Ratio 2.4 (0-3.0) Troponin I < 0.015 ng/ml (0-0.045) Pro-B-Type Natriuretic Peptide 298 pg/ml (0-900) Total Protein 5.7 gm/dl (6.4-8.2) Albumin 2.9 gm/dl (3.4-5.0) Thyroid Stimulating Hormone (TSH) 2.860 uIu/ml (0.300-4.500) Urine Color YELLOW Urine Appearance CLEAR (CLEAR) Urine pH 7.0 (4.5-7.5) Urine Specific Bear 1.006 (1.000-1.030) Urine Protein NEG (NEG) Urine Glucose (UA) NEG (NEG) Urine Ketones NEG (NEG) Urine Occult Blood NEG (NEG) Urine Nitrite NEG (NEG) Urine Bilirubin NEG (NEG) Urine Urobilinogen NEG (NEG) Urine Leukocyte Esterase NEG (NEG) Laboratory results reviewed by me Medications Administered Medications (Trade) Dose Ordered Sig/Anali Route Start Time Stop Time Status Last Admin Dose Admin Furosemide (Lasix Inj) 40 mg NOW STAT IV 05/08/16 13:11 05/08/16 13:12 DC 05/08/16 13:28 40 MG ECG Indication: SOB/dyspnea, other (weight gain) Rate (beats per minute): 80 Rhythm: atrial fibrillation Findings: Q waves (Inferior), no acute ischemic change, no ectopy ED Course 1219: The patient was evaluated in room C4. A complete history and physical exam was performed. 1311: Ordered Lasix Inj 40 mg IV. 1316: I discussed the patients case with LORENA Nelson. She is going to evaluate the patient for further treatment. 1350: I reevaluated the patient and he is resting comfortably. I discussed the exam findings with him and I discussed the treatment plan. He verbalized complete understanding and agreement. He will be evaluated for further treatment. Medical Decision Triage Nursing notes reviewed. The patient's presentation and history were concerning for shortness of breath, leg swelling or weight gain. Etiologies such as fluid overload, CHF, renal disease, cardiac ischemia, pulmonary embolism, pneumothorax, musculoskeletal, infections, gastrointestinal , pneumonia, COPD, reactive airway disease, as well as others were entertained. The patient was evaluated. He had peripheral edema. He was not hypoxic. He has not been able to drop weight despite increasing his outpatient Lasix. His primary care physician was concerned. She directed him to the emergency department. The patient was evaluated and given a dose of IV Lasix. His CBC showed a moderate anemia but improved from prior. INR was 1.2. LFTs are minimally elevated but creatinine was normal. Chemistries otherwise normal. BNP and troponin are normal. Consultation was made with internal medicine. He was evaluated in the emergency department and admitted for further treatment. The chart was completed utilizing [email or web address] Speech voice recognition software. Grammatical errors, random word insertions, pronoun errors, and incomplete sentences are an occasional consequence of this system due to software limitations, ambient noise, and hardware issues. Any formal questions or concerns about the content, text, or information contained within the body of this dictation should be directly addressed to the physician for clarification. Consults Time Called: 1313 Consulting Physician: LORENA Nelson Returned Call: 1316 I discussed the patients case with LORENA Nelson. She is going to evaluate the patient for further treatment. Impression Primary Impression: Dyspnea on exertion Additional Impression: Peripheral edema Scribe Attestation The scribe's documentation has been prepared under my direction and personally reviewed by me in its entirety. I confirm that the note above accurately reflects all work, treatment, procedures, and medical decision making performed by me. Departure Information Dispostion Being Evaluated By Hospitalist Referrals Erma Santos MD (PCP) Problem Qualifiers
[2016-05-08 17:08] VITALS: BP 118/74; PULSE 81; TEMP 36.2; O2SAT 98
[2016-05-08 17:39] VITALS: BP 118/74; PULSE 81; TEMP 36.2; O2SAT 98; Ht 170.2 cm; Wt 120.0 kg
[2016-05-08] MEDS ORDERED: POTASSIUM CHLORIDE 20 MEQ TABCR PO ONE (18:00)
[2016-05-08] MEDS: FUROSEMIDE INJ 40 MG in SYRINGE 0 ML IV SCH (19:01)
[2016-05-08 19:44] VITALS: BP 106/70; PULSE 76; TEMP 36.3; O2SAT 100
[2016-05-08 20:00] VITALS: O2SAT 100
[2016-05-08] MEDS: APIXABAN 2.5 MG TAB PO SCH (20:27)
[2016-05-08] MEDS: IPRATROPIUM BROMIDE/ALBUTEROL respimat INH INH SCH (21:00)
--- NOTE | 2016-05-08 22:32 | History and Physical ---
History & Physical Date & Time of Service: May 08, 2016 at 15:50 Chief Complaint: Admission/Sent By Doctor Primary Care Physician: Erma Santos MD History of Present Illness Source: patient, family The patient is a 65-year-old male with a history of chronic atrial fibrillation , COPD, hypertension, TIA, alcoholism, lifelong smoker, BPH, hyper- homocysteinemia, and recent gastritis with GI bleed who presents to the ER from his PCP's office after being seen for hospital follow-up appointment. He was noted to have significant lower extremity edema and was complaining of dyspnea on exertion ever since his discharge one week ago. He had been taking his Lasix 20 mg by mouth twice a day since discharge but this did not seem to be helping. He was noted to be up approximately 5-6 kg since the last admission, and review the record showed he was +6 L at the time of discharge. He did receive 2 units of packed red blood cells during that admission as well for his severe anemia. He denies any chest pain or heart palpitations, no shortness of breath at rest, denies numbness or tingling, denies headache, denies abdominal pain, no more melena, however he has had a couple small amounts of bright red blood per rectum with bowel movements. In the ER he was not hypoxic, his vital signs were stable, his hemoglobin was increased from previous at 9.6, his renal function was normal, his pro BNP was within normal limits, his troponin was negative, and his chest x-ray showed cardiomegaly but no florid CHF. He was noted to have 3+ pitting edema in the lower extremities and will be admitted on an observation status for acute on chronic diastolic CHF. Of note, he did have a follow-up outpatient colonoscopy 3 days ago that showed diverticula in the sigmoid colon and small nonbleeding internal hemorrhoids. He was instructed to restart his Eliquis at that point. 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 Current tobacco smoker Hyper homocystinemia Hypertension History of TIA History of alcoholism Gastritis with GI bleeding Anemia Long-term anticoagulation Past surgical history: None Family History Hypertension Social History Smoking Status: Former Smoker (40 pack year smoking history, quit 2 weeks prior to this admission) Alcohol Use: heavy (quit 2 weeks ago, but prior to that was drinking 6-10 beers every day) Drug Use: none Marital Status: Housing status: lives with family Occupational Status: retired Immunizations History of Influenza Vaccine: N/A History of Tetanus Vaccine?: 4-5 YEARS AGO History of Pneumococcal: Yes History of Hepatitis B Vaccine: No Multi-Drug Resistant Organisms History of MDRO: No Allergies Coded Allergies: No Known Allergies (Verified , 05/08/16) Home Medications Scheduled Apixaban (Eliquis), 5 MG PO BID Atenolol (Tenormin), 100 MG PO BID Diltiazem Hcl Ext Rel (Tiazac), 180 MG PO QAM Folic Acid (Folic Acid), 7 MG PO DAILY Furosemide (Furosemide), 20 MG PO BID Ipratropium-Albuterol (Combivent Respimat), 2 PUFFS INH QID Lisinopril (Prinivil), 20 MG PO QAM Multivitamin (Multivitamin), 1 TAB PO QAM Nicotine (Nicoderm Cq 21MG Patch), 1 PATCH TOP DAILY Pantoprazole (Pantoprazole Sodium), 40 MG PO QAM Review of Systems Constitutional: No chills, No fever Eyes: No problem reported ENT: No problem reported Respiratory: + dyspnea on exertion, + shortness of breath Cardiovascular: + edema, No chest pain, No palpitations Abdomen: + GI bleeding, No constipation, No diarrhea, No nausea, No pain, No vomiting Musculoskeletal: No problem reported Genitourinary - Male: No problem reported Neurologic: No problem reported Psychiatric: No problem reported Endocrine: No problem reported Hematologic / Lymphatic: No problem reported Integumentary: + bleeding (bleeds easily) Allergic / Immunologic: No problem reported Physical Exam Vital Signs Date Time Temp Pulse Resp B/P Pulse Ox O2 Delivery O2 Flow Rate FiO2 05/08/16 15:06 89 18 92/67 99 Room Air 05/08/16 13:28 83 20 108/79 99 Room Air 05/08/16 12:20 75 05/08/16 12:08 100 Room Air 05/08/16 12:07 97 Room Air 05/08/16 11:29 36.4 93 20 101/65 94 Room Air General Appearance: WD/WN, no apparent distress, + obese Head: normocephalic, atraumatic Eyes: normal inspection, PERRL, EOMI (6), sclerae normal ENT: hearing grossly normal, pharynx normal Neck: supple, no adenopathy (6), thyroid normal, no carotid bruits, trachea midline Respiratory/Chest: lungs clear, normal breath sounds, no respiratory distress, no accessory muscle use Cardiovascular: no gallop, no murmur, + irregularly irregular (normal rate), + pertinent finding (2-3+ pitting edema of the legs and feet to the knees bilaterally) Abdomen/GI: normal bowel sounds, non tender, soft (and obese with mild distention), no pulsatile mass Back: normal inspection Extremities/Musculoskelatal: no calf tenderness, normal range of motion Neurologic/Psych: alert, normal mood/affect ( ), oriented x 3 Skin: normal color, warm/dry, + rash, + pertinent finding (a few weeping blisters on legs with clear fluid) Lymphatic: no adenopathy Diagnostics Laboratory Results Results Past 24 Hours Test 05/08/16 12:06 05/08/16 14:20 Range/Units White Blood Count 8.06 4.8-10.8 K/uL Red Blood Count 3.21 4.7-6.1 M/uL Hemoglobin 9.6 14.0-18.0 g/dL Hematocrit 28.8 42-52 % Mean Corpuscular Volume 89.7 80-100 fL Mean Corpuscular Hemoglobin 29.9 25-34 pg Mean Corpuscular Hemoglobin Concent 33.3 32-36 g/dl Platelet Count 225 130-400 K/uL Mean Platelet Volume 10.1 7.4-10.4 fL Neutrophils (%) (Auto) 73.4 % Lymphocytes (%) (Auto) 12.3 % Monocytes (%) (Auto) 12.7 % Eosinophils (%) (Auto) 1.4 % Basophils (%) (Auto) 0.0 % Neutrophils # (Auto) 5.92 1.4-6.5 K/uL Lymphocytes # (Auto) 0.99 1.2-3.4 K/uL Monocytes # (Auto) 1.02 0.11-0.59 K/uL Eosinophils # (Auto) 0.11 0-0.5 K/uL Basophils # (Auto) 0.00 0-0.2 K/uL RDW Standard Deviation 52.8 36.4-46.3 fL RDW Coefficient of Variation 16.1 11.5-14.5 % Immature Granulocyte % (Auto) 0.2 % Immature Granulocyte # (Auto) 0.02 0.00-0.02 K/uL Prothrombin Time 13.2 9.0-12.0 SECONDS Prothromb Time International Ratio 1.2 0.9-1.1 Activated Partial Thromboplast Time 25.7 21.0-31.0 SECONDS Partial Thromboplastin Ratio 1.0 Sodium Level 136 136-145 mmol/L Potassium Level 3.3 3.5-5.1 mmol/L Chloride Level 95 98-107 mmol/L Carbon Dioxide Level 33 21-32 mmol/L Anion Gap 8.0 3-11 mmol/L Blood Urea Nitrogen 10 7-18 mg/dl Creatinine 0.80 0.60-1.40 mg/dl Est Creatinine Clear Calc Drug Dose 112.4 ml/min Estimated GFR () 107.9 Estimated GFR (Non- 93.1 BUN/Creatinine Ratio 12.1 10-20 Random Glucose 99 70-99 mg/dl Calcium Level 8.2 8.5-10.1 mg/dl Magnesium Level 2.0 1.8-2.4 mg/dl Total Bilirubin 1.0 0.2-1 mg/dl Direct Bilirubin 0.4 0-0.2 mg/dl Aspartate Amino Transf (AST/SGOT) 44 15-37 U/L Alanine Aminotransferase (ALT/SGPT) 54 12-78 U/L Alkaline Phosphatase 107 45-117 U/L Total Creatine Kinase 92 39-308 U/L Creatine Kinase MB 2.2 0.5-3.6 ng/ml Creatine Kinase MB Ratio 2.4 0-3.0 Troponin I < 0.015 0-0.045 ng/ml Pro-B-Type Natriuretic Peptide 298 0-900 pg/ml Total Protein 5.7 6.4-8.2 gm/dl Albumin 2.9 3.4-5.0 gm/dl Thyroid Stimulating Hormone (TSH) 2.860 0.300-4.500 uIu/ml Urine Color YELLOW Urine Appearance CLEAR CLEAR Urine pH 7.0 4.5-7.5 Urine Specific Spearman 1.006 1.000-1.030 Urine Protein NEG NEG Urine Glucose (UA) NEG NEG Urine Ketones NEG NEG Urine Occult Blood NEG NEG Urine Nitrite NEG NEG Urine Bilirubin NEG NEG Urine Urobilinogen NEG NEG Urine Leukocyte Esterase NEG NEG Diagnostic Radiology CHEST ONE VIEW PORTABLE CLINICAL HISTORY: Weakness COMPARISON STUDY: 04/28/2016 FINDINGS: The heart is enlarged. There is no focal pulmonary consolidation. There are no pleural effusions. There is no failure.[ IMPRESSION: Cardiomegaly. No acute findings. EKG ECG with atrial fibrillation with normal rate, evidence of inferior infarct and possible anterior infarct that are not noticeably different from previous EKG Impression Assessment and Plan The patient is a 65-year-old male with a history of chronic atrial fibrillation , COPD, hypertension, TIA, alcoholism, lifelong smoker, BPH, hyper- homocysteinemia, and recent gastritis with GI bleed who presents with significant lower extremity edema and dyspnea on exertion ever since his discharge one week ago . He had been taking his Lasix 20 mg by mouth twice a day since discharge but this did not seem to be helping. He was noted to be up approximately 5-6 kg since the last admission, and review the record showed he was +6 L at the time of discharge. Acute on chronic diastolic CHF/lower extremity edema/dyspnea on exertion/ chronic atrial fibrillation/hypertension - not hypoxic, his vital signs are stable, his hemoglobin is increased from previous at 9.6, his renal function is normal, his pro BNP is within normal limits, his troponin is negative, and his chest x-ray shows cardiomegaly but no florid CHF. Echocardiogram from 04/30 showed LVEF of 60-65%, with severe concentric LVH, moderate to severely dilated right ventricle with normal function, mild MR/and mild pulmonary hypertension. -Observe on telemetry --Continue Lasix 40 mg IV twice a day and likely switch to by mouth Lasix 40 mg twice a day tomorrow for discharge -No need to repeat echocardiogram -Counseled on low sodium diet, elevation of legs, compression stockings, and fluid restriction of 1500 mL's per day -Check renal function in the morning -Continue Eliquis for anticoagulation, continue diltiazem and atenolol for rate control, continue lisinopril for hypertension -Cardiology consult place and appreciated COPD, recently quit smoking-stable -Continue nicotine patch -Bronchodilators when necessary History of recent GI bleed, gastritis-colonoscopy was recently without evidence of source of bleeding. Hemoglobin here is increased from previous 9.6. He is back on his Eliquis. -Monitor CBC -Continue PPI Hypokalemia-potassium 3.3 on admission -Replaced orally and recommended continuing potassium chloride 20 mEq by mouth once daily History of alcohol abuse-has now been abstinent for 2 weeks. Congratulated him on that and encouraged continued cessation. DVT prophylaxis-Eliquis's Disposition-full code To home likely tomorrow Level of Care Telemetry VTE Prophylaxis VTE Risk Assessment Done? Y/N: Yes Risk Level: Low Given or contraindicated: Other Anticoagulation (Eliquis), Treatment not tolerated Additional Copies To Erma Santos MD
[2016-05-09] VITALS (10 sets, daily range): BP systolic 99–123; BP diastolic 63–79; PULSE 73–92; TEMP 36.5–37.1; O2SAT 95–100
[2016-05-09 07:32] LABS: CREATININE 0.65 mg/dl (0.60-1.40); POTASSIUM 3.3 mmol/L (3.5-5.1)
[2016-05-09] MEDS: MULTIVITAMIN TAB PO SCH (08:27)
[2016-05-09] MEDS: DILTIAZEM HCL (TIAzac) 180 MG CAPCR PO SCH (08:28)
[2016-05-09] MEDS: PANTOprazole SOD 40 MG TAB PO SCH (08:28)
[2016-05-09] MEDS: LISINOPRIL 20 MG TAB PO SCH (08:29)
[2016-05-09] MEDS: FUROSEMIDE INJ 40 MG in SYRINGE 0 ML IV SCH (08:29)
[2016-05-09] MEDS: APIXABAN 2.5 MG TAB PO SCH ×2 (08:29→21:21)
[2016-05-09] MEDS: IPRATROPIUM BROMIDE/ALBUTEROL respimat INH INH SCH ×4 (08:29→21:23)
[2016-05-09] MEDS: NICOTINE 21 MG/24 HR TDSY TD SCH (08:30)
[2016-05-09] MEDS: POTASSIUM CHLORIDE 20 MEQ TABCR PO SCH (08:31)
--- NOTE | 2016-05-09 11:07 | Cardiology Consultation ---
Cardiology Consultation Date of Consultation: May 09, 2016. Requesting Physician: Dr. Felipe Reason for Consultation: Edema Pt evaluation today including: conversation w/ patient, physical exam, lab review, review of studies, review of inpatient medication list History of Present Illness This is a 67-year-old male with a history of hypertension, hypercholesterolemia , alcohol abuse and permanent atrial fibrillation, a history of anticoagulation for his arrhythmia but currently on hold for a GI bleed recently. He presented to [facility] on 04/23/2016 with massive peripheral edema, anemia due to blood loss and ethanol intoxication. He was diuresed, he is alcohol withdrawal was treated and he was discharged. He has had an evaluation now for his GI bleed including upper and lower endoscopy with his nares I can tell no clear cause for his bleeding although he did have gastric irritation. Cardiac evaluation demonstrated normal left ventricular function, a dilated right ventricle with good systolic function and elevated right-sided pressures. He was sent home with instructions on fluid restriction and on a diuretic, however he returns now with progressive peripheral edema. Past Medical/Surgical History (1) Atrial Fibrillation (2) Hypertension Nos (3) Pure Hypercholesterolem (4) GI bleed Family History Hypertension Social History Smoking Status: Former Smoker (40 pack year smoking history, quit 2 weeks prior to this admission) History of Alcohol Use: No Review of Systems Constitutional: No fever, No weakness, No weight loss Respiratory: + shortness of breath, No cough, No dyspnea on exertion, No wheezing Cardiac: No PND, No chest pain, No edema, No orthopnea, No palpitations Abdomen: No GI bleeding, No diarrhea, No nausea, No pain, No vomiting Male : No nocturia more than once/night, No sexual dysfunction, No slowing stream, No urinary frequency Neurologic: No balance problems, No numbness/tingling, No paralysis, No weakness Heme: No abnormal bleeding/bruising, No clotting problems Endo: No fatigue Skin: No problem reported All Other Systems: Reviewed and Negative Allergies Coded Allergies: No Known Allergies (Verified , 05/08/16) Medications Current Inpatient Medications Medications (Trade) Dose Ordered Sig/Anali Route Start Time Stop Time Status Last Admin Dose Admin Potassium Chloride 20 meq 20 meq QAM PO 05/09/16 09:00 06/08/16 08:59 05/09/16 08:31 20 MEQ Furosemide/Syringe (Lasix Inj/ Syringe) 4 ml @ 4 mls/min BID17 IV 05/08/16 19:00 06/07/16 18:59 05/09/16 08:29 4 MLS/MIN Acetaminophen (Tylenol Tab) 650 mg Q4H PRN PO 05/08/16 14:00 06/07/16 13:59 Ondansetron HCl (Zofran Inj) 4 mg Q6H PRN IV 05/08/16 14:00 06/07/16 13:59 Polyethylene (Miralax Powder Packet) 17 gm DAILY PRN PO 05/08/16 14:00 06/07/16 13:59 Atenolol (Tenormin Tab) 100 mg BID PO 05/08/16 21:00 06/07/16 20:59 05/09/16 08:28 100 MG Diltiazem HCl (TIAzac CAP) 180 mg QAM PO 05/09/16 09:00 06/08/16 08:59 05/09/16 08:28 180 MG Folic Acid (Folvite Tab) 7 mg DAILY PO 05/09/16 09:00 06/08/16 08:59 05/09/16 08:28 7 MG Albuterol/ Ipratropium (Combivent Respimat Inh) 2 puffs QID INH 05/08/16 21:00 06/07/16 20:59 05/09/16 08:29 2 PUFFS Lisinopril (Zestril Tab) 20 mg QAM PO 05/09/16 09:00 06/08/16 08:59 05/09/16 08:29 20 MG Multivitamins (Multivitamin Tab) 1 tab QAM PO 05/09/16 09:00 06/08/16 08:59 05/09/16 08:27 1 TAB Nicotine (Nicoderm Cq 21MG Patch) 1 patch DAILY TD 05/09/16 09:00 06/08/16 08:59 05/09/16 08:30 1 PATCH Pantoprazole Sodium (Protonix Tab) 40 mg QAM PO 05/09/16 09:00 06/08/16 08:59 05/09/16 08:28 40 MG Apixaban (Eliquis Tab) 5 mg BID PO 05/08/16 21:00 06/07/16 20:59 05/09/16 08:29 5 MG Miscellaneous (Iv Fluids Completed) 1 ea PRN PRN N/A 05/08/16 14:30 05/08/17 14:29 Miscellaneous (Remove Nicoderm Patch) 1 ea DAILY@2100 N/A 05/09/16 21:00 06/08/16 20:59 Physical Exam Vital Signs Past 12 Hours Date Time Temp Pulse Resp B/P Pulse Ox O2 Delivery O2 Flow Rate FiO2 05/09/16 08:15 37.0 85 16 116/71 98 Room Air 05/09/16 08:00 98 Room Air 05/09/16 04:00 36.5 81 16 111/73 95 Room Air 05/09/16 04:00 Room Air 05/09/16 00:00 36.7 90 16 123/79 95 Room Air 05/08/16 23:59 Room Air Constitutional: General Apperance: heathly-appearing Level of Distress: NAD Psychiatric: Mental Status: active & alert Head: normocephalic Eyes: EOM: EOMI ENMT: normal ENT inspection, hearing grossly normal Neck: supple, no masses Lungs: Respiratory effort: no dyspnea, good air movement Auscultation: breath sounds normal, no wheezing Cardiovascular: Heart Auscultation: no murmurs, no rubs, no gallops, irregular rate rhythm Peripheral Pulses: Bruits: none appreciated Abdomen: Bowel Sounds: normal Inspection & Palpation: soft, no tenderness, guarding & rebound, no masses Musculoskeletal: normal strength (5/5 throughout) Extremities: edema (+3 bilateral lower extremity) Neurologic: Cranial Nerves: grossly intact Sensation: grossly intact Data Laboratory Results: Last 24 Hours Test 05/08/16 12:06 05/08/16 14:20 05/09/16 06:20 White Blood Count 8.06 K/uL Red Blood Count 3.21 M/uL Hemoglobin 9.6 g/dL Hematocrit 28.8 % Mean Corpuscular Volume 89.7 fL Mean Corpuscular Hemoglobin 29.9 pg Mean Corpuscular Hemoglobin Concent 33.3 g/dl Platelet Count 225 K/uL Mean Platelet Volume 10.1 fL Neutrophils (%) (Auto) 73.4 % Lymphocytes (%) (Auto) 12.3 % Monocytes (%) (Auto) 12.7 % Eosinophils (%) (Auto) 1.4 % Basophils (%) (Auto) 0.0 % Neutrophils # (Auto) 5.92 K/uL Lymphocytes # (Auto) 0.99 K/uL Monocytes # (Auto) 1.02 K/uL Eosinophils # (Auto) 0.11 K/uL Basophils # (Auto) 0.00 K/uL RDW Standard Deviation 52.8 fL RDW Coefficient of Variation 16.1 % Immature Granulocyte % (Auto) 0.2 % Immature Granulocyte # (Auto) 0.02 K/uL Prothrombin Time 13.2 SECONDS Prothromb Time International Ratio 1.2 Activated Partial Thromboplast Time 25.7 SECONDS Partial Thromboplastin Ratio 1.0 Sodium Level 136 mmol/L 139 mmol/L Potassium Level 3.3 mmol/L 3.3 mmol/L Chloride Level 95 mmol/L 97 mmol/L Carbon Dioxide Level 33 mmol/L 37 mmol/L Anion Gap 8.0 mmol/L 5.0 mmol/L Blood Urea Nitrogen 10 mg/dl 10 mg/dl Creatinine 0.80 mg/dl 0.65 mg/dl Est Creatinine Clear Calc Drug Dose 112.4 ml/min 140.2 ml/min Estimated GFR () 107.9 117.5 Estimated GFR (Non- 93.1 101.4 BUN/Creatinine Ratio 12.1 15.0 Random Glucose 99 mg/dl 92 mg/dl Calcium Level 8.2 mg/dl 8.0 mg/dl Magnesium Level 2.0 mg/dl Total Bilirubin 1.0 mg/dl Direct Bilirubin 0.4 mg/dl Aspartate Amino Transf (AST/SGOT) 44 U/L Alanine Aminotransferase (ALT/SGPT) 54 U/L Alkaline Phosphatase 107 U/L Total Creatine Kinase 92 U/L Creatine Kinase MB 2.2 ng/ml Creatine Kinase MB Ratio 2.4 Troponin I < 0.015 ng/ml Pro-B-Type Natriuretic Peptide 298 pg/ml Total Protein 5.7 gm/dl Albumin 2.9 gm/dl Thyroid Stimulating Hormone (TSH) 2.860 uIu/ml Urine Color YELLOW Urine Appearance CLEAR Urine pH 7.0 Urine Specific [place] 1.006 Urine Protein NEG Urine Glucose (UA) NEG Urine Ketones NEG Urine Occult Blood NEG Urine Nitrite NEG Urine Bilirubin NEG Urine Urobilinogen NEG Urine Leukocyte Esterase NEG EKG: Atrial fibrillation with a heart rate of 80 bpm. No acute changes. Telemetry reviewed: Atrial fibrillation with a controlled heart rate. Assessment & Plan #1. Fluid retention and edema: He presents now with a dramatic increase in his weight and peripheral edema since discharge one week ago. Clearly it is due to excessive fluid intake, possibly in association with too low a diuretic dose. He needs to make sure he follows a fluid restriction, I know I discussed that with him at his last visit but he doesn't recall it. He can certainly drink more than we can get rid of with diuretics and I told him so. He tells me he is going to be more conscientious. I agree with diuresis, I don't believe this edema is due to left heart failure. The treatment therefore is controlling fluid intake and diuretics. If Lasix alone doesn't work (although we can try higher doses) we can certainly give him Zaroxolyn as needed. We will need to watch his potassium though. #2. Atrial fibrillation: He has long-standing permanent atrial fibrillation and although that may be contributory by creating some degree of left ventricular insufficiency I doubt it has much to do with his fluid retention. His heart rate is well controlled and I would continue his current regimen. #3. Anticoagulation: He has had several GI bleeds in the past, more recently gastritis was identified and that may have had something to do with alcohol. Although he tells me he is going to quit drinking I don't know how likely that is. At this point we probably could restart anticoagulation, certainly from the standpoint of his atrial fibrillation that would be the correct thing to do. However with his several GI bleeds and lack of compliance in general I'm not sure whether the risk of anticoagulation outweighs the benefit. I would consider it but I have not started him on anticoagulation currently. Thank you for allowing me to participate in his care.
--- NOTE | 2016-05-09 15:10 | Progress Note ---
Subjective Date of Service: May 09, 2016. Subjective Pt evaluation today including: conversation w/ patient, physical exam, chart review, lab review, review of studies, review of inpatient medication list No chest pain or shortness Noted swelling in legs No painful extremities Problem List Medical Problems: (1) Anemia Status: Acute (2) Dyspnea on exertion Status: Acute (3) Left sided chest pain Status: Acute (4) Peripheral edema Status: Acute (5) Shortness of breath Status: Acute (6) Weakness Status: Acute Review of Systems Constitutional: No chills, No fever Respiratory: No cough, No shortness of breath, No sputum, No wheezing Cardiac: + edema, No chest pain, No orthopnea Abdomen: No constipation, No diarrhea, No nausea, No pain, No vomiting Musculoskeletal: No joint pain, No muscle pain Male : No dysuria, No urinary frequency Neurologic: No paralysis, No weakness Objective Vital Signs Date Time Temp Pulse Resp B/P Pulse Ox O2 Delivery O2 Flow Rate FiO2 05/09/16 14:37 36.7 80 16 99/63 100 Room Air 05/09/16 12:00 98 Room Air 05/09/16 11:21 37.1 92 20 104/68 95 Room Air 05/09/16 08:15 37.0 85 16 116/71 98 Room Air 05/09/16 08:00 98 Room Air 05/09/16 04:00 36.5 81 16 111/73 95 Room Air 05/09/16 04:00 Room Air 05/09/16 00:00 36.7 90 16 123/79 95 Room Air 05/08/16 23:59 Room Air 05/08/16 20:00 100 Room Air 05/08/16 19:44 36.3 76 18 106/70 100 Room Air 05/08/16 17:39 36.2 81 18 118/74 98 Room Air 05/08/16 17:08 36.2 81 18 118/74 98 Room Air 05/08/16 16:52 82 20 124/78 98 05/08/16 16:33 82 20 124/78 98 Room Air Physical Exam General Appearance: WD/WN, no apparent distress Neck: supple, no adenopathy Respiratory/Chest: lungs clear, normal breath sounds Cardiovascular: no gallop, no JVD Abdomen: non tender, soft 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: alert, oriented x 3 Laboratory Results Last 24 Hours Test 05/09/16 06:20 Sodium Level 139 mmol/L Potassium Level 3.3 mmol/L Chloride Level 97 mmol/L Carbon Dioxide Level 37 mmol/L Anion Gap 5.0 mmol/L Blood Urea Nitrogen 10 mg/dl Creatinine 0.65 mg/dl Est Creatinine Clear Calc Drug Dose 140.2 ml/min Estimated GFR () 117.5 Estimated GFR (Non- 101.4 BUN/Creatinine Ratio 15.0 Random Glucose 92 mg/dl Calcium Level 8.0 mg/dl Assessment and Plan The patient is a 65-year-old male with a history of chronic atrial fibrillation , COPD, hypertension, TIA, alcoholism, lifelong smoker, BPH, hyper- homocysteinemia, and recent gastritis with GI bleed who presents with significant lower extremity edema and dyspnea on exertion ever since his discharge one week ago. He had been taking his Lasix 20 mg by mouth twice a day since discharge but this did not seem to be helping. He was noted to be up approximately 5-6 kg since the last admission, and review the record showed he was +6 L at the time of discharge. Acute on chronic diastolic CHF/lower extremity edema/dyspnea on exertion/ chronic atrial fibrillation/hypertension - not hypoxic, his vital signs are stable, his hemoglobin is increased from previous at 9.6, his renal function is normal, his pro BNP is within normal limits, his troponin is negative, and his chest x-ray shows cardiomegaly but no florid CHF. Echocardiogram from 04/30 showed LVEF of 60-65%, with severe concentric LVH, moderate to severely dilated right ventricle with normal function, mild MR/and mild pulmonary hypertension. -Observe on telemetry --Continue Lasix 60 mg IV twice a day, may need to add zaroxolyn -No need to repeat echocardiogram -Counseled on low sodium diet, elevation of legs, compression stockings, and fluid restriction of 1500 mL's per day -Continue Eliquis for anticoagulation, continue diltiazem and atenolol for rate control, continue lisinopril for hypertension -Cardiology consult place and appreciated COPD, recently quit smoking-stable -Continue nicotine patch -Bronchodilators when necessary History of recent GI bleed, gastritis-colonoscopy was recently without evidence of source of bleeding. Hemoglobin here is increased from previous 9.6. He is back on his Eliquis. -Monitor CBC -Continue PPI Hypokalemia -Replaced orally and recommended continuing potassium chloride 20 mEq by mouth once daily History of alcohol abuse-has now been abstinent for 2 weeks. Congratulated him on that and encouraged continued cessation. DVT prophylaxis-Eliquis Disposition-full code
[2016-05-09] MEDS: FUROSEMIDE INJ 60 MG in SYRINGE 0 ML IV SCH (16:06)
[2016-05-10] VITALS (9 sets, daily range): BP systolic 95–119; BP diastolic 54–79; PULSE 50–80; TEMP 36.3–37; O2SAT 97–100
[2016-05-10 06:52] LABS: BUN/CREATININE RATIO 12.7 (10-20); CALCIUM 8.4 mg/dl (8.5-10.1); CREATININE 0.72 mg/dl (0.60-1.40); POTASSIUM 3.2 mmol/L (3.5-5.1)
[2016-05-10] MEDS: POTASSIUM CHLORIDE 20 MEQ TABCR PO SCH (08:11)
[2016-05-10] MEDS: IPRATROPIUM BROMIDE/ALBUTEROL respimat INH INH SCH ×4 (08:11→21:30)
[2016-05-10] MEDS: LISINOPRIL 20 MG TAB PO SCH (08:12)
[2016-05-10] MEDS: APIXABAN 2.5 MG TAB PO SCH ×2 (08:12→21:30)
[2016-05-10] MEDS: DILTIAZEM HCL (TIAzac) 180 MG CAPCR PO SCH (08:13)
[2016-05-10] MEDS: MULTIVITAMIN TAB PO SCH (08:14)
[2016-05-10] MEDS: NICOTINE 21 MG/24 HR TDSY TD SCH (08:14)
[2016-05-10] MEDS: PANTOprazole SOD 40 MG TAB PO SCH (08:14)
[2016-05-10] MEDS: FUROSEMIDE INJ 60 MG in SYRINGE 0 ML IV SCH ×2 (08:16→16:54)
[2016-05-10] MEDS ORDERED: POTASSIUM CHLORIDE 20 MEQ TABCR PO ONE (09:00)
[2016-05-10] MEDS: METOLAZONE 5 MG TAB PO SCH (10:55)
--- NOTE | 2016-05-10 13:45 | Progress Note ---
Subjective Date of Service: May 10, 2016. Subjective Pt evaluation today including: conversation w/ patient, physical exam, chart review, lab review, review of studies, review of inpatient medication list Pt resting in bed comfortably Denies shortness of breath or cough States swelling in legs better Still low urine output No other concerns expressed Problem List Medical Problems: (1) Anemia Status: Acute (2) Dyspnea on exertion Status: Acute (3) Left sided chest pain Status: Acute (4) Peripheral edema Status: Acute (5) Shortness of breath Status: Acute (6) Weakness Status: Acute Review of Systems Constitutional: No chills, No fever Respiratory: No cough, No dyspnea on exertion, No shortness of breath, No sputum, No wheezing Cardiac: No chest pain, No edema, No orthopnea Abdomen: No constipation, No diarrhea, No nausea, No pain, No vomiting Musculoskeletal: No joint pain, No muscle pain Male : No dysuria, No urinary frequency Neurologic: No paralysis, No weakness Endo: No excessive thirst, No fatigue Objective Vital Signs Date Time Temp Pulse Resp B/P Pulse Ox O2 Delivery O2 Flow Rate FiO2 05/10/16 12:07 100 Room Air 05/10/16 11:46 36.3 78 20 119/78 100 Room Air 05/10/16 08:00 98 Room Air 05/10/16 07:33 36.7 80 18 112/70 98 Room Air 05/10/16 04:00 Room Air 05/10/16 00:01 Room Air 05/09/16 20:00 98 Room Air 05/09/16 19:27 36.5 73 18 110/74 98 Room Air 05/09/16 16:00 100 Room Air 05/09/16 14:37 36.7 80 16 99/63 100 Room Air Physical Exam General Appearance: WD/WN, no apparent distress Neck: supple, no adenopathy Respiratory/Chest: lungs clear, normal breath sounds Cardiovascular: no gallop, no JVD Abdomen: non tender, soft 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: alert, oriented x 3 Skin: warm/dry, no rash Laboratory Results Last 24 Hours Test 05/10/16 05:56 Sodium Level 137 mmol/L Potassium Level 3.2 mmol/L Chloride Level 95 mmol/L Carbon Dioxide Level 36 mmol/L Anion Gap 6.0 mmol/L Blood Urea Nitrogen 9 mg/dl Creatinine 0.72 mg/dl Est Creatinine Clear Calc Drug Dose 126.6 ml/min Estimated GFR () 112.7 Estimated GFR (Non- 97.2 BUN/Creatinine Ratio 12.7 Random Glucose 95 mg/dl Calcium Level 8.4 mg/dl Assessment and Plan Pt is a 65 yo male with a history of chronic atrial fibrillation, COPD, hypertension, TIA, alcoholism, lifelong smoker, BPH, hyper-homocysteinemia, and recent gastritis with GI bleed who presents with significant lower extremity edema and dyspnea on exertion ever since his discharge one week ago. He had been taking his Lasix 20 mg by mouth twice a day since discharge but this did not seem to be helping. He was noted to be up approximately 5-6 kg since the last admission, and review the record showed he was +6 L at the time of discharge. Acute on chronic diastolic CHF/lower extremity edema/dyspnea on exertion/ chronic atrial fibrillation/hypertension - not hypoxic, his vital signs are stable, his hemoglobin is increased from previous at 9.6, his renal function is normal, his pro BNP is within normal limits, his troponin is negative, and his chest x-ray shows cardiomegaly but no florid CHF. Echocardiogram from 04/30 showed LVEF of 60-65%, with severe concentric LVH, moderate to severely dilated right ventricle with normal function, mild MR/and mild pulmonary hypertension. -Observed on telemetry --Continue Lasix 60 mg IV twice a day, added zaroxolyn on 05/10 -No need to repeat echocardiogram -Counseled on low sodium diet, elevation of legs, compression stockings, and fluid restriction of 1500 mL's per day -Continue Eliquis for anticoagulation, continue diltiazem and atenolol for rate control, continue lisinopril for hypertension -Cardiology consult place and appreciated COPD, recently quit smoking-stable -Continue nicotine patch -Bronchodilators when necessary History of recent GI bleed, gastritis-colonoscopy was recently without evidence of source of bleeding. Hemoglobin here is increased from previous 9.6. He is back on his Eliquis. -Monitor CBC -Continue PPI Hypokalemia -Replaced orally and recommended continuing potassium chloride 20 mEq by mouth once daily History of alcohol abuse-has now been abstinent for 2 weeks. Congratulated him on that and encouraged continued cessation. DVT prophylaxis-Eliquis Disposition-full code
[2016-05-11 06:54] LABS: BUN/CREATININE RATIO 14.9 (10-20); CALCIUM 8.3 mg/dl (8.5-10.1); CREATININE 0.71 mg/dl (0.60-1.40); POTASSIUM 3.3 mmol/L (3.5-5.1)
[2016-05-11 07:10] VITALS: BP 116/75; PULSE 83; TEMP 36.4; O2SAT 100
[2016-05-11 08:00] VITALS: O2SAT 100
[2016-05-11] MEDS ORDERED: POTASSIUM CHLORIDE 20 MEQ TABCR PO SCH (09:00)
[2016-05-11] MEDS: METOLAZONE 5 MG TAB PO SCH ×2 (09:00→09:10)
[2016-05-11] MEDS: LISINOPRIL 20 MG TAB PO SCH ×2 (09:00→09:09)
[2016-05-11] MEDS: DILTIAZEM HCL (TIAzac) 180 MG CAPCR PO SCH ×2 (09:00→09:12)
[2016-05-11] MEDS: FUROSEMIDE INJ 60 MG in SYRINGE 0 ML IV SCH ×2 (09:08→10:15)
[2016-05-11] MEDS: APIXABAN 2.5 MG TAB PO SCH (09:09)
[2016-05-11] MEDS: NICOTINE 21 MG/24 HR TDSY TD SCH (09:11)
[2016-05-11] MEDS: PANTOprazole SOD 40 MG TAB PO SCH (09:12)
[2016-05-11] MEDS: IPRATROPIUM BROMIDE/ALBUTEROL respimat INH INH SCH ×2 (09:12→12:58)
[2016-05-11] MEDS: MULTIVITAMIN TAB PO SCH (09:12)
[2016-05-11 09:15] VITALS: BP 95/61; PULSE 75
[2016-05-11 10:15] VITALS: BP_SYST 95; BP_DIAS 59; BP_DIAS 61; PULSE 78
[2016-05-11] MEDS ORDERED: MCRK20 PO (12:26)
[2016-05-11] MEDS ORDERED: FURO40TA3 PO (12:26)
[2016-05-11] MEDS ORDERED: ZRX5 PO (12:26)
--- NOTE | 2016-05-11 12:30 | Discharge Instructions ---
Discharge Instructions Date of Service May 11, 2016. Admission Reason for Admission: Chf Exacerbation Discharge Discharge Diagnosis / Problem: CHF exacerbation Discharge Goals Goal(s): Decrease discomfort, Improve function, Increase independence, Improve disease control, Learn about illness, Diagnostic testing, Therapeutic intervention, Prevent Disease Progression Activity Recommendations Activity Limitations: resume your previous activity Exercise/Sports Limitations: none Patient to be discharged home Please stop taking lisinopril at this time due to low blood pressure Prescription sent for metolazone 5mg to take every other day, lasix 40 mg once a day Please check daily weights, if more than 2-3 lb weight gain in 24 hrs, can take extra dose of lasix Please follow up with Dr Santos and Dr Garcia in 1-2 weeks . Current Hospital Diet Patient's current hospital diet: Low Sodium Diet (2gm Na) Discharge Diet Recommended Diet: AHA Diet (Heart Healthy) Pending Studies Studies pending at discharge: no Medical Emergencies . Who to Call and When: Medical Emergencies: If at any time you feel your situation is an emergency, please call 911 immediately. . Non-Emergent Contact Non-Emergency issues call your: Primary Care Provider Call Non-Emergent contact if: you have a fever, your pain is worsening . . "Provider Documentation" section prepared by Sanket Chow. VTE Core Measure Inpt VTE Proph given/why not?: Other Anticoagulation (Eliquis), Treatment not tolerated
[2016-05-11 13:11] VITALS: BP 95/61; PULSE 78; TEMP 36.4; O2SAT 100
--- NOTE | 2016-05-13 13:43 | Discharge Summary ---
Discharge Summary Date of Service May 13, 2016. Discharge Summary Admission Date: May 08, 2016 at 14:16 Discharge Date: May 11, 2016 Discharge Disposition: Home Principal Diagnosis: CHF exacerbation Immunizations: Have You Had Influenza Vaccine: N/A History of Tetanus Vaccine?: 4-5 YEARS AGO History of Pneumococcal: Yes History of Hepatitis B Vaccine: No Consultations: Cardiology Medication Reconciliation New Medications: Furosemide (Lasix) 40 Mg Tab 1 TAB PO DAILY for 30 Days, #30 TAB 5 Refills Metolazone (Metolazone) 5 Mg Tab 5 MG PO Q2D, #30 TAB Potassium Chloride (Klor-Con M20) 20 Meq Tabcr 40 MEQ PO QAM, #30 TABS Continued Medications: Apixaban (Eliquis) 5 Mg Tab 5 MG PO BID, #60 Atenolol (Tenormin) 100 Mg Tab 100 MG PO BID, #60 Diltiazem Hcl Ext Rel (Tiazac) 180 Mg Capcr 180 MG PO QAM, CAP Folic Acid (Folic Acid) 1 Mg Tab 7 MG PO DAILY, #210 Ipratropium-Albuterol (Combivent Respimat) 1 Aer Aer 2 PUFFS INH QID, #1 INH Multivitamin (Multivitamin) Tab 1 TAB PO QAM, TAB Nicotine (Nicoderm Cq 21MG Patch) 1 Patch Tdsy 1 PATCH TOP DAILY for 28 Days, #28 PATCH Pantoprazole (Pantoprazole Sodium) 40 Mg Tab 40 MG PO QAM, #90 TAB Discontinued Medications: Furosemide (Furosemide) 20 Mg Tab 20 MG PO BID Lisinopril (Prinivil) 20 Mg Tab 20 MG PO QAM, TAB Discharge Exam Review of Systems: Constitutional: No chills, No fever Respiratory: No cough, No dyspnea on exertion, No shortness of breath, No sputum, No wheezing Cardiovascular: + edema, No chest pain, No orthopnea Abdomen: No diarrhea, No nausea, No pain, No vomiting Musculoskeletal: No joint pain, No muscle pain Genitourinary - Male: No dysuria, No hematuria, No urinary frequency Neurologic: No paralysis, No weakness Psychiatric: No anhedonism, No anxiety, No depression symptoms Physical Exam: General Appearance: WD/WN, no apparent distress Neck: supple, no adenopathy Respiratory/Chest: lungs clear, + decreased breath sounds Cardiovascular: no gallop, no JVD Abdomen / GI: non tender, soft 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: alert, oriented x 3 Hospital Course Pt is a 65 yo male with a history of chronic atrial fibrillation, COPD, hypertension, TIA, alcoholism, lifelong smoker, BPH, hyper-homocysteinemia, and recent gastritis with GI bleed who presents with significant lower extremity edema and dyspnea on exertion ever since his discharge one week ago. He had been taking his Lasix 20 mg by mouth twice a day since discharge but this did not seem to be helping. He was noted to be up approximately 5-6 kg since the last admission, and review the record showed he was +6 L at the time of discharge. Acute on chronic diastolic CHF/lower extremity edema/dyspnea on exertion/ chronic atrial fibrillation/hypertension - not hypoxic, his vital signs are stable, his hemoglobin is increased from previous at 9.6, his renal function is normal, his pro BNP is within normal limits, his troponin is negative, and his chest x-ray shows cardiomegaly but no florid CHF. Echocardiogram from 04/30 showed LVEF of 60-65%, with severe concentric LVH, moderate to severely dilated right ventricle with normal function, mild MR/and mild pulmonary hypertension. -Observed on telemetry --Lasix 60 mg IV twice a day, added zaroxolyn on 05/10, improved diuresis .-No need to repeat echocardiogram -Counseled on low sodium diet, elevation of legs, compression stockings, and fluid restriction of 1500 mL's per day -Continue Eliquis for anticoagulation, continue diltiazem and atenolol for rate control, continue lisinopril for hypertension -Cardiology consult place and appreciated, patient to be discharged home Please stop taking lisinopril at this time due to low blood pressure Prescription sent for metolazone 5mg to take every other day, lasix 40 mg once a day Please check daily weights, if more than 2-3 lb weight gain in 24 hrs, can take extra dose of lasix Please follow up with Dr Santos and Dr Garcia in 1-2 weeks COPD, recently quit smoking-stable -Continue nicotine patch -Bronchodilators when necessary History of recent GI bleed, gastritis-colonoscopy was recently without evidence of source of bleeding. Hemoglobin here is increased from previous 9.6. He is back on his Eliquis. -Monitor CBC -Continue PPI Hypokalemia -Replaced orally and recommended continuing potassium chloride 20 mEq by mouth once daily History of alcohol abuse-has now been abstinent for 2 weeks. Congratulated him on that and encouraged continued cessation. DVT prophylaxis-Eliquis Disposition-full code Total Time Spent: Greater than 30 minutes This includes examination of the patient, discharge planning, medication reconciliation, and communication with other providers. Discharge Instructions Please refer to the electronic Patient Visit Report (Discharge Instructions) for additional information. Additional Copies To Erma Santos MD
[2016-08-19] MEDS ORDERED: FLV1 PO (11:56)
[2016-08-19] MEDS ORDERED: ATEN100T PO (13:52)
[2016-08-22] MEDS ORDERED: PANT40TA2 PO (16:15)
[2016-12-24] MEDS ORDERED: MULT-506 PO (11:48)
[2016-12-24] MEDS ORDERED: FRS/40 PO (11:48)
== END 2016-05-11 13:30 | disposition home or self-care (01) ==
LOC: ENRESERVTM → ENRESERVDT → C.EDB 11:20 → C.MED 14:16
PROVIDERS: ADMIT Family Medicine; ATTEND Hospitalist
DX: I50.33 Acute on chronic diastolic (congestive) heart failure (principal); I48.2 Chronic atrial fibrillation; J44.9 Chronic obstructive pulmonary disease, unspecified; I10 Essential (primary) hypertension; F10.20 Alcohol dependence, uncomplicated; N40.0 Benign prostatic hyperplasia without lower urinary tract symptoms; E78.00 Pure hypercholesterolemia, unspecified; I27.2 Other secondary pulmonary hypertension; E72.11 Homocystinuria; E87.6 Hypokalemia; F10.21 Alcohol dependence, in remission; Z86.73 Personal history of transient ischemic attack (TIA), and cerebral infarction without residual deficits; Z87.891 Personal history of nicotine dependence; Z79.52 Long term (current) use of systemic steroids; Z82.49 Family history of ischemic heart disease and other diseases of the circulatory system

== ENCOUNTER 2016-06-20 15:06 | Inpatient (IN) | payer BC, OTHER ==
[~2016-06-20] VITALS: Ht 172.7 cm; Wt 116.7 kg
[~2016-06-20 15:06] MED LIST changes: +APIX1TAB3 PO; +FURO40TA3 PO; -LISI20TA3 PO; -LSX20 PO; +MCRK20 PO; -PRED10TA PO; +ZRX5 PO
[2016-06-20] MEDS ORDERED: SODIUM CHLORIDE 0.9% 1000ML 1,000 ML IV STA (15:20)
--- NOTE | 2016-06-20 15:23 | EMERGENCY ROOM VISIT NOTE ---
History Report prepared by Nick: Rosalinda Bahena Under the Supervision of: Dr. Crescencio Mullen M.D. First contact with patient: 15:14 Chief Complaint: RECTAL BLEEDING Stated Complaint: RECTAL BLEEDING Nursing Triage Summary: Pt reports rectal bleeding since yesterday. Dark blood. Denies pain, N/V. Pt was here in April for rectal bleeding and needed transfusions History of Present Illness The patient is a 65 year old male who presents to the Emergency Room with complaints of constant rectal bleeding beginning yesterday. The patient reports that he noticed a small amount of dark blood on the toilet paper yesterday. He states that he has a history of rectal bleeding and was seen here 2 months ago for similar symptoms and needed blood transfusions. The patient reports that he had a colonoscopy and endoscopy with no significant findings. He denies any nausea, vomiting, abdominal pain, and weakness. He notes that he is on Eliquis and was seen in his PCP's office today and was heme positive. Source of History: patient Onset: yesterday Position: other (rectal) Symptom Intensity: small amount Quality: other (dark blood) Timing: constant Associated Symptoms: No abdominal pain, No nausea, No vomiting, No weakness Review of Systems See HPI for pertinent positives & negatives. A total of 10 systems reviewed and were otherwise negative. Past Medical & Surgical Medical Problems: (1) Atrial Fibrillation (2) Cellulitis of leg (3) Chest pain (4) CHF exacerbation (5) COPD exacerbation (6) GI bleed (7) Hypertension Nos (8) Pure Hypercholesterolem (9) Tobacco Use Disorder Family History Hypertension Social History Smoking Status: Former Smoker Alcohol Use: heavy Drug Use: none Marital Status: Occupation Status: retired Current/Historical Medications Scheduled Apixaban (Eliquis), 5 MG PO BID Atenolol (Tenormin), 100 MG PO BID Diltiazem Hcl Ext Rel (Tiazac), 180 MG PO QAM Folic Acid (Folic Acid), 7 MG PO DAILY Furosemide (Lasix), 40 MG PO QAM Ipratropium-Albuterol (Combivent Respimat), 1 PUFFS INH QID Metolazone (Zaroxolyn), 5 MG PO Q2D Multivitamin (Multivitamin), 1 TAB PO QAM Nicotine (Nicoderm Cq), 1 PATCH TOP DAILY Pantoprazole (Protonix), 40 MG PO QAM Potassium Ext Rel (Klor-Con), 40 MEQ PO QAM Allergies Coded Allergies: No Known Allergies (Verified , 06/20/16) Physical Exam Vital Signs Date Time Temp Pulse Resp B/P Pulse Ox O2 Delivery O2 Flow Rate FiO2 06/20/16 16:41 66 19 06/20/16 16:36 67 19 06/20/16 16:31 75 15 06/20/16 16:30 99/75 96 Room Air 06/20/16 16:26 77 17 06/20/16 16:21 72 21 06/20/16 16:16 76 17 06/20/16 16:11 73 18 06/20/16 16:06 73 18 06/20/16 16:03 71 06/20/16 16:01 113/66 06/20/16 15:42 98 Room Air 06/20/16 15:09 36.5 116 18 100/66 100 Room Air Physical Exam GENERAL: Patient is a healthy-appearing well-nourished HEAD: Normocephalic atraumatic EYES: Ocular movements intact pupils equal and react to light OROPHARYNX mucous membranes are moist no exudates present no erythema or edema present NECK: Supple no nuchal rigidity CHEST: Good equal expansion LUNGS: Clear and equal to auscultation CARDIAC: Normal S1 and S2 ABDOMEN: Soft nontender no guarding BACK: No CVA tenderness EXTREMITIES: No pain upon palpation normal muscle strength in all groups no clubbing cyanosis or edema NEURO: Patient is following commands is answering questions appropriately. Alert and oriented x3 Cranial Nerves 2-12 grossly intact RECTAL: Patient denies rectal exam. Medical Decision & Procedures Laboratory Results 06/20/16 15:31 Red Blood Count 3.12, Mean Corpuscular Volume 81.1, Mean Corpuscular Hemoglobin 26.3, Mean Corpuscular Hemoglobin Concent 32.4, Mean Platelet Volume 9.0, Neutrophils (%) (Auto) 59.4, Lymphocytes (%) (Auto) 23.0, Monocytes (%) (Auto) 14.6, Eosinophils (%) (Auto) 1.7, Basophils (%) (Auto) 1.1, Neutrophils # (Auto ) 3.17, Lymphocytes # (Auto) 1.23, Monocytes # (Auto) 0.78, Eosinophils # (Auto ) 0.09, Basophils # (Auto) 0.06 5/12/17 15:31 Test 06/20/16 15:31 06/20/16 17:26 White Blood Count 5.34 K/uL (4.8-10.8) Red Blood Count 3.12 M/uL (4.7-6.1) Hemoglobin 8.2 g/dL (14.0-18.0) Hematocrit 25.3 % (42-52) Mean Corpuscular Volume 81.1 fL (80-100) Mean Corpuscular Hemoglobin 26.3 pg (25-34) Mean Corpuscular Hemoglobin Concent 32.4 g/dl (32-36) Platelet Count 262 K/uL (130-400) Mean Platelet Volume 9.0 fL (7.4-10.4) Neutrophils (%) (Auto) 59.4 % Lymphocytes (%) (Auto) 23.0 % Monocytes (%) (Auto) 14.6 % Eosinophils (%) (Auto) 1.7 % Basophils (%) (Auto) 1.1 % Neutrophils # (Auto) 3.17 K/uL (1.4-6.5) Lymphocytes # (Auto) 1.23 K/uL (1.2-3.4) Monocytes # (Auto) 0.78 K/uL (0.11-0.59) Eosinophils # (Auto) 0.09 K/uL (0-0.5) Basophils # (Auto) 0.06 K/uL (0-0.2) RDW Standard Deviation 56.8 fL (36.4-46.3) RDW Coefficient of Variation 19.1 % (11.5-14.5) Immature Granulocyte % (Auto) 0.2 % Immature Granulocyte # (Auto) 0.01 K/uL (0.00-0.02) Hypochromasia PRESENT Prothrombin Time 14.5 SECONDS (9.0-12.0) Prothromb Time International Ratio 1.3 (0.9-1.1) Activated Partial Thromboplast Time 28.1 SECONDS (21.0-31.0) Partial Thromboplastin Ratio 1.1 Anion Gap 7.0 mmol/L (3-11) Est Creatinine Clear Calc Drug Dose 81.5 ml/min Estimated GFR () 80.6 Estimated GFR (Non- 69.6 BUN/Creatinine Ratio 14.5 (10-20) Calcium Level 8.7 mg/dl (8.5-10.1) Total Bilirubin 1.2 mg/dl (0.2-1) Direct Bilirubin 0.5 mg/dl (0-0.2) Aspartate Amino Transf (AST/SGOT) 38 U/L (15-37) Alanine Aminotransferase (ALT/SGPT) 20 U/L (12-78) Alkaline Phosphatase 111 U/L (45-117) Creatine Kinase MB 0.5 ng/ml (0.5-3.6) Troponin I < 0.015 ng/ml (0-0.045) Total Protein 6.6 gm/dl (6.4-8.2) Albumin 2.8 gm/dl (3.4-5.0) Lipase 245 U/L (73-393) Creatine Kinase MB Ratio (0-3.0) Labs reviewed by ED physician. Medications Administered Medications (Trade) Dose Ordered Sig/Anali Route Start Time Stop Time Status Last Admin Dose Admin Sodium Chloride 1,000 ml @ 999 mls/hr Q1H1M STAT IV 06/20/16 15:20 06/20/16 16:20 DC 06/20/16 15:37 999 MLS/HR Pantoprazole Sodium 80 mg/ Dextrose 120 ml @ 480 mls/hr 1530 ONCE IV 06/20/16 15:30 06/20/16 15:44 DC 06/20/16 15:38 480 MLS/HR Pantoprazole Sodium/Dextrose (Protonix Inj/D5 100ml) 100 ml @ 20 mls/hr Q5H IV 06/20/16 15:45 07/20/16 15:44 06/20/16 15:38 20 MLS/HR Potassium Chloride (Kcl 10 Meq / Wtr) 10 meq NOW STAT IV 06/20/16 16:11 06/20/16 16:12 DC 06/20/16 16:41 10 MEQ Potassium Chloride (Stephani Ciel Elix) 40 meq NOW STAT PO 06/20/16 16:11 06/20/16 16:12 DC 06/20/16 16:41 40 MEQ Potassium Chloride (Kcl 10 Meq / Wtr) 10 meq NOW STAT IV 06/20/16 16:11 06/20/16 16:12 DC 06/20/16 16:41 10 MEQ ECG Indication: other (bleeding) Rate (beats per minute): 79 Rhythm: atrial fibrillation Findings: PVC, no acute ischemic change, other (old inferior infarct) ED Course 1514: Past medical records reviewed. The patient was evaluated in room A2. A complete history and physical examination was performed. 1520: Pantoprazole Sodium 1ea IV, Sodium Chloride 1000 ml @ 999 mls/hr IV. 1530: Pantoprazole Sodium 80mg/Dextrose 120ml @ 480mls/hr IV. 1545: Pantoprazole Sodium 40mg/Dextrose 100ml @ 20mls/hr IV. 1554: I discussed the patient's case with Dr. Rankin of [facility], he has agreed to evaluate the patient for further management and care. 1604: Upon reexamination the patient is doing well. I discussed results and treatment plan with the patient. She verbalizes agreement and understanding. I spoke with Dr. Rankin from the [facility] Hospitalist Service. The patient will be evaluated for further management. Medical Decision Differential diagnosis: Etiologies such as diverticulosis, AVM, coagulopathy, colitis, inflammatory bowel disease, malignancy, Anita-Alcantar tear, esophagitis, peptic ulcer disease , variceal bleed, gastritis, epistaxis, fissure, hemorrhoids, as well as others were entertained. This is a 65-year-old male who presents emergency department complaining of acute GI bleed. The patient was recently hospitalized for bleed and he is on Apixaban. The patient is hypotensive and therefore sent into the [facility] department. He was given normal saline bolus. He was started on a Protonix bolus and drip. The patient's hemoglobin here is only 8.2 therefore he was typed and screened however I will hold off on giving the patient blood. He did willingly consigned blood consent and this was placed on the chart. Patient was in agreement with the treatment plan. Consults Time Called: 155 Consulting Physician: Dr. Rankin - [facility] Returned Call: [phone] I discussed the patient's case with Dr. Rankin of [facility], he has agreed to evaluate the patient for further management and care. Impression Primary Impression: GI bleed Scribe Attestation The scribe's documentation has been prepared under my direction and personally reviewed by me in its entirety. I confirm that the note above accurately reflects all work, treatment, procedures, and medical decision making performed by me. Departure Information Dispostion Being Evaluated By Hospitalist Referrals Erma Santos MD (PCP) Patient Instructions My [facility] Problem Qualifiers Primary Impression: GI bleed GI bleed type/associated pathology: unspecified gastrointestinal hemorrhage type Qualified Codes: K92.2 - Gastrointestinal hemorrhage, unspecified
[2016-06-20] MEDS ORDERED: PANTOprazole INJ 80 MG in DEXTROSE 5% 100ML IV ONE (15:30)
[2016-06-20 15:44] LABS: BASO % 1.1 %; BASO ABS # 0.06 K/uL (0-0.2); EOS % 1.7 %; HEMATOCRIT 25.3 % (42-52); IG% 0.2 %; LYMPH ABS # 1.23 K/uL (1.2-3.4); MEAN CELL VOLUME 81.1 fL (80-100); MEAN CORPUSCULAR HEMOGLOBIN 26.3 pg (25-34); MEAN CORPUSCULAR HGB CONC 32.4 g/dl (32-36); MONO % 14.6 %; NEUT % 59.4 %; PLATELET COUNT 262 K/uL (130-400); RED BLOOD COUNT 3.12 M/uL (4.7-6.1); WHITE BLOOD COUNT 5.34 K/uL (4.8-10.8)
[2016-06-20] MEDS ORDERED: PANTOprazole INJ 40 MG in DEXTROSE 5% 100ML IV SCH (15:45)
[2016-06-20 15:53] LABS: INR 1.3 (0.9-1.1); PARTIAL THROMBOPLASTIN RATIO 1.1; PROTHROMBIN TIME (PATIENT) 14.5 SECONDS (9.0-12.0)
[2016-06-20] MEDS ORDERED: FRS/40 PO (15:54)
[2016-06-20] MEDS ORDERED: PANT40TA PO (15:54)
[2016-06-20] MEDS ORDERED: METO5TAB25 PO (15:54)
[2016-06-20] MEDS ORDERED: POTA20TA16 PO (15:54)
[2016-06-20] MEDS ORDERED: NICO21DI4 TOP (15:54)
[2016-06-20 16:01] LABS: COMPLETE YES; HYPOCHROMIA PRESENT
[2016-06-20 16:07] LABS: BUN/CREATININE RATIO 14.5 (10-20); CALCIUM 8.7 mg/dl (8.5-10.1); CREATININE 1.1 mg/dl (0.60-1.40)
[2016-06-20 16:09] LABS: POTASSIUM 2.5 mmol/L (3.5-5.1)
[2016-06-20] MEDS ORDERED: POTASSIUM CHLORIDE 20 MEQ/15 ML UDC PO STA (16:11)
[2016-06-20] MEDS ORDERED: POTASSIUM CHLORIDE 10 MEQ / 100ML WTR IV STA ×2 (16:11)
[2016-06-20] MEDS ORDERED: POLYETHYLENE (MIRALAX) 17 GM PACK PO PRN (17:15)
[2016-06-20] MEDS ORDERED: ONDANSETRON INJ 2 MG/ML 2 ML VIAL IV PRN (17:15)
[2016-06-20] MEDS ORDERED: MAGNESIUM HYDROXIDE SUSP 30 ML UDC PO PRN (17:15)
[2016-06-20] MEDS ORDERED: HydrALAZINE HCL 20 MG/ML VIAL IV. PRN (17:15)
[2016-06-20] MEDS ORDERED: ALUMINUM/MAGNESIUM/SIMETH (MAALOX MAX) 30 ML UDC PO PRN (17:15)
[2016-06-20] MEDS ORDERED: ACETAMINOPHEN 325 MG TAB PO PRN (17:15)
[2016-06-20] MEDS ORDERED: NITROGLYCERIN 0.4 MG SL PER TAB CHARGE SL PRN (17:15)
[2016-06-20] MEDS ORDERED: METOPROLOL TARTRATE 1 MG/ML VIAL IV PRN (17:30)
--- NOTE | 2016-06-20 17:41 | History and Physical ---
History & Physical Date & Time of Service: June 20, 2016 at 17:18 Chief Complaint: Rectal Bleeding Primary Care Physician: Erma Santos MD History of Present Illness Source: patient, family (), clinic records, hospital records 65 y/o male, with PMHx of diastolic CHF, a.fib, HTN, chronic hyponatremia, chronic venous stasis, h/o GI bleed and alcohol abuse/tobacco, who presented to the ED because of melena beginning last evening. Per patient, melena could have been ongoing for longer, but he just noticed last evening. He also admits to noticeable dark blood w/ bowel movements. Patient was admitted to [facility] on 04/23 for a GI bleed secondary to Eliquis. EGD and colonoscopy were relatively unremarkable. He was then discharged to home and returned on 05/08 because of acute on chronic congestive heart failure. Patient states he has been doing well since discharge to home on 05/13. He was seen by his PCP today and was heme positive. He was instructed to come to the ED. This is patient's 3rd episode of GI bleed since being on Eliquis. According to the patient, his PCP and computer discovery teacher, Dr. Garcia have been discussing other anticoagulation options. + dizziness when standing- ongoing issue, non-worsening since melena. +SOB w/ exertion- ongoing issue, non- worsening since melena. Patient denies any fever, chills, sweats, lightheadedness, vision changes, CP, palpitations, edema, wheezing, cough, abdominal pain, nausea, vomiting, diarrhea, urinary symptoms, numbness/tingling, weakness, muscle/joint pain, anxiety/depression, or new skin discoloration/changes. Past Medical/Surgical History Medical Problems: diastolic CHF a.fib HTN chronic hyponatremia chronic venous stasis alcohol abuse/tobacco GI bleed Family History Hypertension Social History Smoking Status: Former Smoker Drug Use: none Marital Status: Housing status: lives with family Occupational Status: retired Immunizations History of Influenza Vaccine: N/A History of Tetanus Vaccine?: 4-5 YEARS AGO History of Pneumococcal: Yes History of Hepatitis B Vaccine: No Multi-Drug Resistant Organisms History of MDRO: No Allergies Coded Allergies: No Known Allergies (Verified , 06/20/16) Home Medications Scheduled Apixaban (Eliquis), 5 MG PO BID Atenolol (Tenormin), 100 MG PO BID Diltiazem Hcl Ext Rel (Tiazac), 180 MG PO QAM Folic Acid (Folic Acid), 7 MG PO DAILY Furosemide (Lasix), 40 MG PO QAM Ipratropium-Albuterol (Combivent Respimat), 1 PUFFS INH QID Metolazone (Zaroxolyn), 5 MG PO Q2D Multivitamin (Multivitamin), 1 TAB PO QAM Nicotine (Nicoderm Cq), 1 PATCH TOP DAILY Pantoprazole (Protonix), 40 MG PO QAM Potassium Ext Rel (Klor-Con), 40 MEQ PO QAM Physical Exam Vital Signs Date Time Temp Pulse Resp B/P Pulse Ox O2 Delivery O2 Flow Rate FiO2 06/20/16 16:41 66 19 06/20/16 16:36 67 19 06/20/16 16:31 75 15 06/20/16 16:30 99/75 96 Room Air 06/20/16 16:26 77 17 06/20/16 16:21 72 21 06/20/16 16:16 76 17 06/20/16 16:11 73 18 06/20/16 16:06 73 18 06/20/16 16:03 71 06/20/16 16:01 113/66 06/20/16 15:42 98 Room Air 06/20/16 15:09 36.5 116 18 100/66 100 Room Air General Appearance: no apparent distress, + obese Head: normocephalic, atraumatic Eyes: normal inspection, PERRL ENT: hearing grossly normal Neck: supple Respiratory/Chest: lungs clear, no respiratory distress, no accessory muscle use Cardiovascular: + irregularly irregular (rate controlled) Abdomen/GI: normal bowel sounds, non tender, + distended Back: normal inspection Extremities/Musculoskelatal: + swelling (trace-+1 pitting edema to bilateral lower extremities, R>L) Neurologic/Psych: alert, normal mood/affect, oriented x 3 Skin: normal color, warm/dry, no rash Diagnostics Laboratory Results Results Past 24 Hours Test 06/20/16 15:31 Range/Units White Blood Count 5.34 4.8-10.8 K/uL Red Blood Count 3.12 4.7-6.1 M/uL Hemoglobin 8.2 14.0-18.0 g/dL Hematocrit 25.3 42-52 % Mean Corpuscular Volume 81.1 80-100 fL Mean Corpuscular Hemoglobin 26.3 25-34 pg Mean Corpuscular Hemoglobin Concent 32.4 32-36 g/dl Platelet Count 262 130-400 K/uL Mean Platelet Volume 9.0 7.4-10.4 fL Neutrophils (%) (Auto) 59.4 % Lymphocytes (%) (Auto) 23.0 % Monocytes (%) (Auto) 14.6 % Eosinophils (%) (Auto) 1.7 % Basophils (%) (Auto) 1.1 % Neutrophils # (Auto) 3.17 1.4-6.5 K/uL Lymphocytes # (Auto) 1.23 1.2-3.4 K/uL Monocytes # (Auto) 0.78 0.11-0.59 K/uL Eosinophils # (Auto) 0.09 0-0.5 K/uL Basophils # (Auto) 0.06 0-0.2 K/uL RDW Standard Deviation 56.8 36.4-46.3 fL RDW Coefficient of Variation 19.1 11.5-14.5 % Immature Granulocyte % (Auto) 0.2 % Immature Granulocyte # (Auto) 0.01 0.00-0.02 K/uL Hypochromasia PRESENT Prothrombin Time 14.5 9.0-12.0 SECONDS Prothromb Time International Ratio 1.3 0.9-1.1 Activated Partial Thromboplast Time 28.1 21.0-31.0 SECONDS Partial Thromboplastin Ratio 1.1 Sodium Level 130 136-145 mmol/L Potassium Level 2.5 3.5-5.1 mmol/L Chloride Level 83 98-107 mmol/L Carbon Dioxide Level 40 21-32 mmol/L Anion Gap 7.0 3-11 mmol/L Blood Urea Nitrogen 16 7-18 mg/dl Creatinine 1.10 0.60-1.40 mg/dl Est Creatinine Clear Calc Drug Dose 81.5 ml/min Estimated GFR () 80.6 Estimated GFR (Non- 69.6 BUN/Creatinine Ratio 14.5 10-20 Random Glucose 104 70-99 mg/dl Calcium Level 8.7 8.5-10.1 mg/dl Total Bilirubin 1.2 0.2-1 mg/dl Direct Bilirubin 0.5 0-0.2 mg/dl Aspartate Amino Transf (AST/SGOT) 38 15-37 U/L Alanine Aminotransferase (ALT/SGPT) 20 12-78 U/L Alkaline Phosphatase 111 45-117 U/L Total Protein 6.6 6.4-8.2 gm/dl Albumin 2.8 3.4-5.0 gm/dl Lipase 245 73-393 U/L EKG BREEZY GUNN ID:[id number] 20-JUN-2016 15:26:50 [facility] Atrial fibrillation with premature ventricular or aberrantly conducted complexes Low voltage QRS Inferior infarct (cited on or before 08-MAY-2016) Cannot rule out Anterior infarct (cited on or before 08-MAY-2016) Abnormal ECG When compared with ECG of 08-MAY-2016 12:08, Questionable change in initial forces of Anterior leads 25mm/s 10mm/mV 150Hz 8.0 SP2 12SL 241 ROMEL: 0 Referred by: Erma Santos Unconfirmed Vent. rate 79 BPM IN interval * ms QRS duration 84 ms QT/QTc 426/488 ms P-R-T axes * -1950 (65 yr) Male 110in 1lb Room: Loc:15 Senior Game Developer:PRANEETH Hudson ind: Impression Assessment and Plan 65 y/o male, with PMHx of diastolic CHF, a.fib, HTN, chronic hyponatremia, chronic venous stasis, h/o GI bleed and alcohol abuse/tobacco, who presented to the ED because of melena beginning last evening. Anemia, secondary GI bleed on Eliquis: - Admit to tele for cardiac monitoring - Trend cardiac enzymes- none taken in the ED - IV Protonix drip - NPO except meds - Hold Elquis - Type and cross match- hold 2 units - Follow H&H q6 hrs and transfuse PRN - Consult GI, appreciate recommendations - EGD 04/24- irregular z-line, gastritis, and normal duodenum - Colonoscopy 05/05- diverticulosis, and internal hemorrhoids Hypokalemia of 2.5 on admission: - Repleted in ED w/ 40 mEq PO and IV 10 mEq x2 - IV NSS + 20 mEq KCL @ 100 ml/hr - Continue 40 mEq KCL supplement - Follow PRP HTN w/ hypotension on admission: - Hold hypotensive agents - IVF - Hydralazine 10 mg IV PRN for sbp >170 or dbp >100 Chronic hyponatremia: - Treat w/ IVF - Follow PRP Chronic diastolic CHF: - Lasix 40 mg PO and Metolazone 5 mg Q2D held due to hypotension, hypokalemia, and hyponatremia - ECHO 04/30/16 * 1. Normal left ventricular size and systolic function. EF 60-65%. No regional wall motion abnormalities. Severe concentric left ventricular hypertrophy. * 2. The right ventricle is moderate to severely dilated. The right ventricular systolic function is normal. * 3. Moderate biatrial dilation. * 4. Mild mitral regurgitation. * 5. Mildly elevated right ventricular systolic pressure; RVSP 39 mmHg. * 6. Compared to prior study on 01/30/2015, estimated RVSP is now mildly elevated. A.fib: - Eliquis held- consider consulted cardiology to discuss other anticoagulation options- patient follows w/ Dr. Garcia - Atenolol 100 mg BID and Diltiazem 180 mg - IV Metoprolol 5 mg PRN for HR >120 w/ hold parameters GI prophylaxis: Protonix DVT prophylaxis: FELIX and SCDs, chemical means contraindicated due to GI bleed Code Status: LEVEL I, FULL Dispo: From home, lives with - no discharge needs anticipated Level of Care Telemetry Resuscitation Status FULL RESUSCITATION VTE Prophylaxis VTE Risk Assessment Done? Y/N: Yes Risk Level: Moderate Given or contraindicated: T.E.D. Stockings, SCD's, Contraindicated
[2016-06-20 19:15] VITALS: BP 103/71; PULSE 77; TEMP 36.4; O2SAT 96; Ht 172.7 cm; Wt 116.7 kg
[2016-06-20] MEDS: PANTOprazole INJ 40 MG in DEXTROSE 5% 100ML IV SCH (20:32)
[2016-06-20] MEDS: NSS + 20MEQ KCL 1000ML 1,000 ML IV SCH (20:32)
[2016-06-20 21:22] LABS: HEMATOCRIT 22.2 % (42-52)
[2016-06-20] MEDS: IPRATROPIUM BROMIDE/ALBUTEROL respimat INH INH SCH (21:42)
[2016-06-20 21:44] VITALS: BP 106/68; PULSE 65
[2016-06-20 23:29] VITALS: BP 99/62; PULSE 62; TEMP 36.7; O2SAT 98
[2016-06-21] VITALS (11 sets, daily range): BP systolic 98–112; BP diastolic 63–73; PULSE 57–121; TEMP 36.4–36.9; O2SAT 92–98
[2016-06-21] MEDS: PANTOprazole INJ 40 MG in DEXTROSE 5% 100ML IV SCH ×5 (01:02→21:22)
[2016-06-21 01:39] LABS: URINE APPEARANCE CLOUDY (CLEAR); URINE BILIRUBIN NEG (NEG); URINE COLOR YELLOW; URINE EPITHELIAL CELL AUTO 0-5 /lpf (0-5); URINE NITRITE POS (NEG); URINE SPECIFIC GRAVITY 1.011 (1.000-1.030); UROBILINOGEN POS (NEG)
[2016-06-21 01:42] LABS: MANUAL MICROSCOPIC REQUIRED? NO; REVIEW REQ? NO
[2016-06-21] MEDS: CEFTRIAXONE SOD INJ 1 GM in DEXTROSE 5% ADD-VANTAGE 50ML 50 ML IV SCH (02:30)
[2016-06-21] MEDS: NSS + 20MEQ KCL 1000ML 1,000 ML IV SCH ×2 (06:05→16:19)
[2016-06-21 06:13] LABS: HEMATOCRIT 24.5 % (42-52)
[2016-06-21 07:00] LABS: ALB/GLOB RATIO 0.7 (0.9-2); BUN/CREATININE RATIO 14.1 (10-20); CALCIUM 8.2 mg/dl (8.5-10.1); CREATININE 0.88 mg/dl (0.60-1.40); POTASSIUM 2.7 mmol/L (3.5-5.1)
[2016-06-21] MEDS: DILTIAZEM HCL (TIAzac) 180 MG CAPCR PO SCH (08:35)
[2016-06-21] MEDS: POTASSIUM CHLORIDE 20 MEQ TABCR PO SCH (08:35)
[2016-06-21] MEDS: IPRATROPIUM BROMIDE/ALBUTEROL respimat INH INH SCH ×4 (08:36→20:24)
--- NOTE | 2016-06-21 08:47 | Hospitalist Progress Note ---
Hospitalist Progress Note Date of Service June 21, 2016. (Elidia Christianson PA-C) Subjective Pt evaluation today including: conversation w/ patient, conversation w/ family , physical exam, chart review, lab review, review of studies Pain: None PO Intake: nothing by mouth The patient was seen and examined this morning. Patient reports feeling well. His last bowel movement was yesterday morning. He denies having any sort of abdominal pain nausea, vomiting, diarrhea, constipation. Patient is requesting something to eat. Pt reports recently quit smoking 8 wks ago , and also lost approximately 23 pounds that point with diet and exercise. Additional Comments: Constitutional: No fever, sweats or chills Eyes: No diplopia, no worsening or blurred vision ENT: normal hearing, no trouble swallowing Respiratory: No cough, sputum, dyspnea at rest or on exertion Cardiovascular: No chest pain, tightness or palpitations Abdomen: No pain, nausea, vomiting, diarrhea or constipation Musculoskeletal: No joint pain, calf pain, swelling Neurologic: No weakness, numbness/tingling, or balance problems Psychiatric: No anxiety or depression Skin: No rash or itch (Elidia Christianson PA-C) Objective Vital Signs Date Time Temp Pulse Resp B/P Pulse Ox O2 Delivery O2 Flow Rate FiO2 06/21/16 07:45 Room Air 06/21/16 05:15 36.5 78 16 109/70 06/21/16 04:45 36.6 73 16 104/69 06/21/16 04:15 36.5 76 16 102/64 06/21/16 04:00 36.4 57 16 99/64 06/21/16 04:00 Room Air 06/21/16 03:45 36.9 73 16 100/66 06/21/16 03:30 36.6 71 16 109/67 06/21/16 00:00 Room Air 06/20/16 23:29 36.7 62 18 99/62 98 Room Air 06/20/16 21:44 65 106/68 06/20/16 19:15 36.4 77 16 103/71 96 Room Air 06/20/16 18:54 61 22 118/66 98 06/20/16 16:41 66 19 06/20/16 16:36 67 19 5/12/17 16:31 75 15 06/20/16 16:30 99/75 96 Room Air 06/20/16 16:26 77 17 06/20/16 16:21 72 21 06/20/16 16:16 76 17 06/20/16 16:11 73 18 06/20/16 16:06 73 18 06/20/16 16:03 71 06/20/16 16:01 113/66 06/20/16 15:42 98 Room Air 06/20/16 15:09 36.5 116 18 100/66 100 Room Air (Elidia Christianson, MARTA-C) Physical Exam Notes: General: awake, alert, no apparent distress Head: Normocephalic, atraumatic ENT: PERRL, EOMI, no pharyngeal exudate, mucous membranes moist Chest: Clear to auscultation, on room air, no adventitious breath sounds Cardiac:+ irregularly irregular, no murmur, no JVD, normal peripheral pulses, good capillary refill Abdominal: NABS x 4 quadrants, soft, + distended, nontender to palpation, no rebound, guarding or tenderness Extremities: Normal inspection, no peripheral edema or erythema, calfs nontender to palpation Psych: Normal mood and affect Neuro: AAO x 3, strength intact bilaterally and related 5/5, no motor deficits, speech is clear, no peripheral sensory deficits (Elidia Christianson, PA-C) Laboratory Results Last 24 Hours Test 06/20/16 15:31 06/20/16 17:26 06/20/16 21:14 06/21/16 00:55 White Blood Count 5.34 K/uL Red Blood Count 3.12 M/uL Hemoglobin 8.2 g/dL 7.2 g/dL Hematocrit 25.3 % 22.2 % Mean Corpuscular Volume 81.1 fL Mean Corpuscular Hemoglobin 26.3 pg Mean Corpuscular Hemoglobin Concent 32.4 g/dl Platelet Count 262 K/uL Mean Platelet Volume 9.0 fL Neutrophils (%) (Auto) 59.4 % Lymphocytes (%) (Auto) 23.0 % Monocytes (%) (Auto) 14.6 % Eosinophils (%) (Auto) 1.7 % Basophils (%) (Auto) 1.1 % Neutrophils # (Auto) 3.17 K/uL Lymphocytes # (Auto) 1.23 K/uL Monocytes # (Auto) 0.78 K/uL Eosinophils # (Auto) 0.09 K/uL Basophils # (Auto) 0.06 K/uL RDW Standard Deviation 56.8 fL RDW Coefficient of Variation 19.1 % Immature Granulocyte % (Auto) 0.2 % Immature Granulocyte # (Auto) 0.01 K/uL Hypochromasia PRESENT Prothrombin Time 14.5 SECONDS Prothromb Time International Ratio 1.3 Activated Partial Thromboplast Time 28.1 SECONDS Partial Thromboplastin Ratio 1.1 Sodium Level 130 mmol/L Potassium Level 2.5 mmol/L Chloride Level 83 mmol/L Carbon Dioxide Level 40 mmol/L Anion Gap 7.0 mmol/L Blood Urea Nitrogen 16 mg/dl Creatinine 1.10 mg/dl Est Creatinine Clear Calc Drug Dose 81.5 ml/min Estimated GFR () 80.6 Estimated GFR (Non- 69.6 BUN/Creatinine Ratio 14.5 Random Glucose 104 mg/dl Calcium Level 8.7 mg/dl Total Bilirubin 1.2 mg/dl Direct Bilirubin 0.5 mg/dl Aspartate Amino Transf (AST/SGOT) 38 U/L Alanine Aminotransferase (ALT/SGPT) 20 U/L Alkaline Phosphatase 111 U/L Creatine Kinase MB 0.5 ng/ml Troponin I < 0.015 ng/ml Total Protein 6.6 gm/dl Albumin 2.8 gm/dl Lipase 245 U/L Creatine Kinase MB Ratio Urine Color YELLOW Urine Appearance CLOUDY Urine pH 8.0 Urine Specific [place] 1.011 Urine Protein NEG Urine Glucose (UA) NEG Urine Ketones NEG Urine Occult Blood NEG Urine Nitrite POS Urine Bilirubin NEG Urine Urobilinogen POS Urine Leukocyte Esterase LARGE Urine WBC (Auto) >30 /hpf Urine RBC (Auto) 0-4 /hpf Urine Hyaline Casts (Auto) 0 /lpf Urine Epithelial Cells (Auto) 0-5 /lpf Urine Bacteria (Auto) 2+ Test 06/21/16 01:17 06/21/16 05:48 Creatine Kinase MB < 0.5 ng/ml Creatine Kinase MB Ratio Troponin I < 0.015 ng/ml Hemoglobin 7.9 g/dL Hematocrit 24.5 % Sodium Level 134 mmol/L Potassium Level 2.7 mmol/L Chloride Level 88 mmol/L Carbon Dioxide Level 41 mmol/L Anion Gap 5.0 mmol/L Blood Urea Nitrogen 12 mg/dl Creatinine 0.88 mg/dl Est Creatinine Clear Calc Drug Dose 101.2 ml/min Estimated GFR () 103.7 Estimated GFR (Non- 89.5 BUN/Creatinine Ratio 14.1 Random Glucose 98 mg/dl Calcium Level 8.2 mg/dl Total Bilirubin 1.5 mg/dl Aspartate Amino Transf (AST/SGOT) 33 U/L Alanine Aminotransferase (ALT/SGPT) 18 U/L Alkaline Phosphatase 96 U/L Total Protein 5.9 gm/dl Albumin 2.5 gm/dl Globulin 3.4 gm/dl Albumin/Globulin Ratio 0.7 (Elidia Christianson, RICHELLE) Assessment and Plan 65 y/o male, with PMHx of diastolic CHF, a.fib, HTN, chronic hyponatremia, chronic venous stasis, h/o GI bleed and alcohol abuse/tobacco, who presented to the ED because of melena beginning last evening. Anemia, secondary GI bleed on Eliquis: - Admit to tele for cardiac monitoring - Trend cardiac enzymes- none taken in the ED - Holding eliquis - will need discussion with Cards (follows with Dr. Garcia ) about d/c of eliquis since this is the third GI bleed, and initiation of other anticoagulation. - IV Protonix drip continue for now - NPO except meds for now- unlikely GI will perform colonoscopy this weekend and will anticipate starting him on clear liquid diet and then advance as tolerated. - Hgb is stable in 8s, seems to float here since April.- Will recheck H&H at 1400 - Type and cross match- hold 2 units - Consult GI, appreciate recs - EGD 04/24- irregular z-line, gastritis, and normal duodenum - Colonoscopy 05/05- diverticulosis, and internal hemorrhoids Hypokalemia - K+ only improved to 2.7, will give additional IV KCl 40 meq and allow pt to get 40 mg PO this morning as well. - Cont IV NSS + 20 mEq KCL @ 100 ml/hr - Follow PRP with am labs HTN w/ hypotension on admission: - Pt got atenolol last evening, will hold diltiazem this morning, hold parameters placed on meds. - Hold hypotensive agents - Hydralazine 10 mg IV PRN for sbp >170 or dbp >100 Chronic hyponatremia: - Treat w/ IVF - Follow PRP Chronic diastolic CHF: - Lasix 40 mg PO and Metolazone 5 mg Q2D held due to hypotension, hypokalemia, and hyponatremia - ECHO 04/30/16 * 1. Normal left ventricular size and systolic function. EF 60-65%. No regional wall motion abnormalities. Severe concentric left ventricular hypertrophy. * 2. The right ventricle is moderate to severely dilated. The right ventricular systolic function is normal. * 3. Moderate biatrial dilation. * 4. Mild mitral regurgitation. * 5. Mildly elevated right ventricular systolic pressure; RVSP 39 mmHg. * 6. Compared to prior study on 01/30/2015, estimated RVSP is now mildly elevated. A.fib: - Eliquis held- consider consulted cardiology to discuss other anticoagulation options- patient follows w/ Dr. Garcia- pt may simply just not be able to tolerate it. - Atenolol 100 mg BID and Diltiazem 180 mg with holding parameters - IV Metoprolol 5 mg PRN for HR >120 w/ hold parameters UTI - Urine Cx sent, started on rocephin last evening, await culture report and sensitivities - Denies dysuria or hematuria. GI prophylaxis: Protonix DVT prophylaxis: FELIX and SCDs Code Status: LEVEL I, FULL Dispo: From home, lives with - no discharge needs anticipated (Elidia Christianson, RICHELLE) Reviewed: Pt Seen/Exam by Me (Nicole Felipe MD) History Physician Agency Service Representative Supervision Note: I interviewed and examined the patient. Discussed with MARTA Christianson and agree with findings and plan as documented in the note. Any exceptions or clarifications are listed here: Patient admitted with anemia and black stools with being Hemoccult positive in his PCPs office. His last known hemoglobin was 9.6 the end of April during his last hospitalization and has not been checked since then. He has been back on Eliquis during the last couple of months. Hemoglobin dropped to 7.2 yesterday evening and he was transfused 1 unit of packed red blood cells overnight. He denies any further dark stools today. No chest pain or shortness of breath. Vitals reviewed No acute distress, obese, alert awake oriented 3 Irregularly irregular, no murmurs gallops or rubs Decreased breath sounds throughout, no wheezes crackles or rhonchi Abdomen positive bowel sounds soft nontender nondistended, obese, rectal exam not performed Ext 1+ pitting edema to knees bilat 65-year-old male here with a history of recurrent GI bleeding, atrial fibrillation on Eliquis for anticoagulation, hypertension, chronic diastolic CHF with lower extremity edema, here with recurrent GI bleeding and acute blood loss anemia. -Follow CBC and transfuse with PRBCs for hemoglobin less than 7-8 -for his mild hyponatremia and hypokalemia that is severe, I feel this is may be secondary to overdiuresis-continue to hold metolazone and Lasix, aggressively replace his potassium and follow up labs later this evening -Will need EGD this hospitalization followed by possible capsule endoscopy or double-balloon enteroscopy to look at the small bowel at a tertiary care facility-if he is stable for discharge, that could be done as an outpatient -Recommend permanently discontinuing anticoagulation until a source of his bleeding can be found -He should have close follow-up with his CBC as an outpatient after discharge Documented By: Nicole Felipe (Nicole Felipe MD)
[2016-06-21] MEDS: POTASSIUM CHLR 10 MEQ / WTR 10 MEQ in PREMIXED WATER 100 ML IV SCH ×8 (09:39→21:22)
[2016-06-21 14:25] LABS: HEMATOCRIT 24.8 % (42-52)
[2016-06-21 14:58] LABS: CREATININE 0.82 mg/dl (0.60-1.40)
[2016-06-21 14:59] LABS: BUN/CREATININE RATIO 13.2 (10-20); CALCIUM 8.1 mg/dl (8.5-10.1); POTASSIUM 2.8 mmol/L (3.5-5.1)
--- NOTE | 2016-06-21 15:16 | Progress Note ---
Progress Note Date of Service June 21, 2016. Progress Note Full Consult dictated earlier In Brief Repeated presentation of overt occult GI bleed-3rd time since 2014 and second since April. Recently underwent EGD and Colon without source making small bowel source more likely. No acute bleeding now since adm and only very intermittently having melena ( every other day) for several days. Diff Dx -Small bowel etiology -Dieulafoy lesion -known gastritis Recs -tx 1 unit of prbc's -PPI IV -Discuss with Dr. Roman for EGD on thursday vs bleeding scan/enterography, or tx for device assisted enteroscopy -call with any signs of clinical change -ok for liquid diet
--- NOTE | 2016-06-21 16:03 | GASTROINTESTINAL CONSULTATION ---
DATE OF CONSULTATION: 06/21/2016 REASON FOR CONSULTATION: Melena. HISTORY OF PRESENT ILLNESS: I was asked to see Mr. Santos Zarco, covering for Dr. Roman, for melena. He is a 65-year-old gentleman who is known to [facility] gastroenterology service well with a past medical history of diastolic CHF, AFib, hypertension, chronic hyponatremia and venous stasis; who has had overt obscure bleeding since 2014. Most recently, presenting in April 2014 secondary to complaints of melena that included hypertension and tachycardia. Apparently this is patient's third episode of GI bleeding since being on Eliquis and on the to April when underwent an urgent upper endoscopy by Dr. Roman, he saw some gastritis, but otherwise was unremarkable and a colonoscopy as an outpatient that was also unremarkable except for some diverticula. On this presentation, he presented with some mild dizziness, 1 dark stool every other day and mild feelings of fatigue and presented to the Emergency Room. This is similar in nature but much less severe than his admission, at which time he required blood transfusion. He was admitted last night and has not had any further or ongoing bowel movements with no signs of bleeding and has had very stable and robust vital signs since admission. He says that he is now abstinent of alcohol for the last couple of months. No further small bowel investigation has been had. He was taking Eliquis until yesterday. He denies any NSAID use and no other nonsteroidals such as Motrin, ibuprofen or Aleve. He has no abdominal pain and he says that he feels quite well today. PAST MEDICAL HISTORY: 1. Diastolic heart failure. 2. AFib 3. Hypertension. 4. Chronic hyponatremia. 5. Chronic venous stasis. 6. Alcohol abuse in remission. 7. Multiple GI bleeds over the last several years, without etiology being identified. FAMILY HISTORY: Significant for hypertension. SOCIAL HISTORY: He is a former smoker and former drinker. He is retired from [employer]. OUTPATIENT MEDICATIONS: Eliquis, Tenormin, Tiazac, folic acid, Lasix, Combivent, Zaroxolyn, multivitamin, Nicoderm, Protonix and potassium. REVIEW OF SYSTEMS: Ten-system review of systems is negative except for stated as above. PHYSICAL EXAMINATION: VITAL SIGNS: Temperature of 36.6, pulse of 100, respiratory rate 18, BP 112/73, pulse ox 94. GENERAL: He is comfortably lying back flat in bed, very relaxed, watching television and able to converse easily. HEART: Regular. LUNGS: Clear. ABDOMEN: Protuberant but soft with no fluid wave, nontender, has 2+ woody edema with some chronic venous stasis changes in his bilateral quadrants. He notes that he has been up ambulating in the room without symptoms. LABORATORIES: Today include hemoglobin of 7.9, hemoglobin was 1500 yesterday. White count is 5. His platelet count is 262. His chemistries reveal potassium of 2.7 up from 2.5 yesterday, his bicarbonate is 41. He has no anion gap, his BUN is 12, his creatinine is 0.8. His calcium is 8.2. His total bilirubin is 1.5. Total protein is 5.9, albumin 2.5, lipase is normal. His liver enzymes are normal as well. IMAGING: None on this admission. IMPRESSION: A 65-year-old gentleman with overt obscure gastrointestinal bleeding. He has no evidence of any active or acute ongoing bleeding. If this is an upper GI source, his BUN is normal and his hemoglobin is quite stable. His hemoglobin is low, less than 8. Suppose given his heart issues, he may benefit from 1 unit of blood transfusion. However, I think that given his historical course with this, small bowel bleed has to be entertained. The technology inability for us to diagnose small bowel bleed here would be including enterography, bleeding scans, versus transfer for device assisted enteroscopy which certainly should be considered. I think it is okay to continue on with the IV PPI that he is on. We will discuss with Dr. Roman about the merits of repeating an upper endoscopy which would be his third for the same condition in less than 2 years. The other option would be transfer for a balloon assisted enteroscopy and/or repeat EGD prior. RECOMMENDATIONS: 1. Observe for any signs or symptoms of bleeding if he were to have bowel movements including that would be melenic in nature or otherwise we need to call GI gas station attendant immediately. 2. Monitor his vital signs. 3. Continue PPI. 4. Consider 1 unit of blood transfusion. 5. Can start liquid diet. We will follow closely and we will discuss merits with Dr. Roman repeating the EGD on Thursday. For any questions, calls or concerns, please do not hesitate to contact me. Thank you for the consultation. NANNETTE
[2016-06-21] MEDS ORDERED: POTASSIUM CHLORIDE 10 MEQ TABCR PO STA (16:12)
[2016-06-21] MEDS ORDERED: NURSING VERBAL MED ORDER ONE (16:45)
[2016-06-22] VITALS (7 sets, daily range): BP systolic 97–119; BP diastolic 62–70; PULSE 59–98; TEMP 36.4–37.3; O2SAT 92–100
[2016-06-22] MEDS: NSS + 20MEQ KCL 1000ML 1,000 ML IV SCH ×2 (02:23→13:22)
[2016-06-22] MEDS: PANTOprazole INJ 40 MG in DEXTROSE 5% 100ML IV SCH ×2 (02:23→08:07)
[2016-06-22] MEDS: CEFTRIAXONE SOD INJ 1 GM in DEXTROSE 5% ADD-VANTAGE 50ML 50 ML IV SCH (05:52)
[2016-06-22 07:02] LABS: BUN/CREATININE RATIO 12.1 (10-20); CREATININE 0.77 mg/dl (0.60-1.40)
[2016-06-22 07:05] LABS: ALB/GLOB RATIO 0.7 (0.9-2)
[2016-06-22] MEDS: IPRATROPIUM BROMIDE/ALBUTEROL respimat INH INH SCH ×4 (08:07→20:54)
[2016-06-22] MEDS: POTASSIUM CHLORIDE 20 MEQ TABCR PO SCH (08:08)
[2016-06-22] MEDS: DILTIAZEM HCL (TIAzac) 180 MG CAPCR PO SCH (08:09)
--- NOTE | 2016-06-22 09:03 | Hospitalist Progress Note ---
Hospitalist Progress Note Date of Service June 22, 2016. (Elidia Christianson PA-C) Subjective Pt evaluation today including: conversation w/ patient, physical exam, chart review, lab review, review of studies Pain: None PO Intake: Clears Voiding: no voiding problems The patient was seen and examined this morning. Patient reports feeling well. GI this morning told him that he will be allowed to eat a regular diet today. The patient has planned EGD scheduled for tomorrow morning. We discussed that he would not be resuming Eliquis after this hospitalization. Patient denies any acute complaints. Has not experienced any lightheadedness or dizziness, chest pain, palpitation, flutter, shortness of breath, fevers or chills. Additional Comments: Constitutional: No fever, sweats or chills Eyes: No diplopia, no worsening or blurred vision ENT: normal hearing, no trouble swallowing Respiratory: No cough, sputum, dyspnea at rest or on exertion Cardiovascular: No chest pain, tightness or palpitations Abdomen: No pain, nausea, vomiting, diarrhea - last bowel movement was yesterday morning, brown in color, no hematochezia or black tarry stools. Musculoskeletal: No joint pain, calf pain, swelling Neurologic: No weakness, numbness/tingling, or balance problems Psychiatric: No anxiety or depression Skin: No rash or itch (Elidia Christianson PA-C) Objective Vital Signs Date Time Temp Pulse Resp B/P Pulse Ox O2 Delivery O2 Flow Rate FiO2 06/22/16 07:26 36.6 98 20 102/66 99 Room Air 06/22/16 04:00 Room Air 06/22/16 03:12 36.5 69 18 119/64 92 Room Air 06/22/16 00:00 Room Air 06/21/16 23:55 36.9 77 16 103/64 94 Room Air 06/21/16 20:12 36.5 66 18 111/63 95 Room Air 06/21/16 20:00 Room Air 06/21/16 16:00 Room Air 06/21/16 15:34 36.7 62 20 108/69 98 06/21/16 12:00 Room Air 06/21/16 11:58 36.6 103 18 112/73 94 (Elidia Christianson PA-C) Physical Exam Notes: General: awake, alert, no apparent distress, obese Head: Normocephalic, atraumatic ENT: PERRL, EOMI, no pharyngeal exudate, mucous membranes moist Chest: Clear to auscultation, on room air, no adventitious breath sounds Cardiac:+ irregularly irregular, no murmur, no JVD, normal peripheral pulses Abdominal: NABS x 4 quadrants, soft, + distended, nontender to palpation, no rebound, guarding or tenderness Extremities: Normal inspection, no peripheral edema or erythema, calfs nontender to palpation Psych: Normal mood and affect Neuro: AAO x 3, speech is clear, no peripheral sensory deficits (Elidia Christianson PA-C) Laboratory Results Last 24 Hours Test 06/21/16 14:15 06/21/16 22:05 06/22/16 06:20 06/22/16 08:51 Hemoglobin 8.3 g/dL Hematocrit 24.8 % Sodium Level 133 mmol/L 133 mmol/L Potassium Level 2.8 mmol/L 3.0 mmol/L 3.0 mmol/L Chloride Level 91 mmol/L 92 mmol/L Carbon Dioxide Level 38 mmol/L 36 mmol/L Anion Gap 4.0 mmol/L 5.0 mmol/L Blood Urea Nitrogen 11 mg/dl 9 mg/dl Creatinine 0.82 mg/dl 0.77 mg/dl Est Creatinine Clear Calc Drug Dose 108.6 ml/min 116.4 ml/min Estimated GFR () 106.8 109.6 Estimated GFR (Non- 92.1 94.6 BUN/Creatinine Ratio 13.2 12.1 Random Glucose 102 mg/dl 104 mg/dl Calcium Level 8.1 mg/dl 8.0 mg/dl Total Bilirubin 1.7 mg/dl Aspartate Amino Transf (AST/SGOT) 33 U/L Alanine Aminotransferase (ALT/SGPT) 16 U/L Alkaline Phosphatase 97 U/L Total Protein 6.0 gm/dl Albumin 2.5 gm/dl Globulin 3.5 gm/dl Albumin/Globulin Ratio 0.7 (Elidia Christianson PA-C) Assessment and Plan 65 y/o male, with PMHx of diastolic CHF, a.fib, HTN, chronic hyponatremia, chronic venous stasis, h/o GI bleed and alcohol abuse/tobacco, who presented to the ED because of melena beginning last evening. Anemia, secondary GI bleed on Eliquis: - cardiac biomarkers x 2 were negative. - Holding eliquis - this medication WILL NOT t be resumed on discharge. - Gi on board, appreciate recs: Advance diet to regular diet, nothing by mouth after midnight for scheduled EGD - Switch IV Protonix to oral 40 mg twice a day - Hgb is stable in 8s, seems to float here since April.- So far H&H is stable - following morning labs - Type and cross match- hold 2 units - EGD 04/24- irregular z-line, gastritis, and normal duodenum - Colonoscopy 05/05- diverticulosis, and internal hemorrhoids Hypokalemia - K+ only improved to 3.0 with aggressive k replacement yesterday, will give additional IV KCl 20 meq and 40 meq PO now. Recheck this afternoon. - Cont IV NSS + 20 mEq KCL @ 100 ml/hr - Follow PRP with am labs HTN w/ hypotension on admission: - Appears stable. -Atenolol and diltiazem on board with holding parameters placed on meds. - Hold hypotensive agents - Hydralazine 10 mg IV PRN for sbp >170 or dbp >100 Chronic hyponatremia: - Treat w/ IVF - Follow PRP Chronic diastolic CHF: - Lasix 40 mg PO and Metolazone 5 mg Q2D held due to hypotension, hypokalemia, and hyponatremia - ECHO 04/30/16 * 1. Normal left ventricular size and systolic function. EF 60-65%. No regional wall motion abnormalities. Severe concentric left ventricular hypertrophy. * 2. The right ventricle is moderate to severely dilated. The right ventricular systolic function is normal. * 3. Moderate biatrial dilation. * 4. Mild mitral regurgitation. * 5. Mildly elevated right ventricular systolic pressure; RVSP 39 mmHg. * 6. Compared to prior study on 01/30/2015, estimated RVSP is now mildly elevated. A.fib: - Eliquis held- consider consulted cardiology to discuss other anticoagulation options- patient follows w/ Dr. Garcia - Atenolol 100 mg BID and Diltiazem 180 mg with holding parameters - IV Metoprolol 5 mg PRN for HR >120 w/ hold parameters UTI - Urine Cx sent, started on rocephin (d#2) await culture report and sensitivities - in process - needed to be intubated culture as initial was only growing pinpoint growth - Denies dysuria or hematuria. GI prophylaxis: Protonix DVT prophylaxis: FELIX and SCDs Code Status: LEVEL I, FULL Dispo: From home, lives with - no discharge needs anticipated, possible discharge after EGD tomorrow. (Elidia Christianson, RICHELLE) Reviewed: Pt Seen/Exam by Me (Nicole Felipe MD) History Physician [employer] [place] Supervision Note: I interviewed and examined the patient. Discussed with MARTA Christianson and agree with findings and plan as documented in the note. Any exceptions or clarifications are listed here: Patient admitted with anemia and black stools with being Hemoccult positive in his PCPs office. His last known hemoglobin was 9.6 the end of April during his last hospitalization and has not been checked since then. He has been back on Eliquis during the last couple of months. Hemoglobin dropped to 7.2 shortly after admission he was transfused 1 unit of packed red blood cells. He had one brown bowel movement today. Hemoglobin has remained stable at 8.2. No chest pain or shortness of breath. No abdominal pain Vitals reviewed No acute distress, obese, alert awake oriented 3 Irregularly irregular, no murmurs gallops or rubs Decreased breath sounds throughout, no wheezes crackles or rhonchi Abdomen positive bowel sounds soft nontender nondistended, obese, rectal exam not performed Ext 1+ pitting edema to knees bilat 65-year-old male here with a history of recurrent GI bleeding, atrial fibrillation on Eliquis for anticoagulation, hypertension, chronic diastolic CHF with lower extremity edema, here with recurrent GI bleeding and acute blood loss anemia. -Follow CBC and transfuse with PRBCs for hemoglobin less than 7-8 -for his mild hyponatremia and hypokalemia that is severe, I feel this is may be secondary to overdiuresis-continue to hold metolazone and Lasix, aggressively replace his potassium again today-we'll add another 40 mEq by mouth 1 now as afternoon potassium improved but still low at 3.4. Discontinue IV fluids. -Would consider not restarting metolazone due to severe hypokalemia -EGD tentatively planned for tomorrow, may need further evaluation with capsule endoscopy or double-balloon enteroscopy to look at the small bowel at a tertiary care facility-if he is stable for discharge, that could be done as an outpatient -Recommend permanently discontinuing anticoagulation until a source of his bleeding can be found -He should have close follow-up with his CBC as an outpatient after discharge Documented By: Nicole Felipe (Nicole Felipe MD)
[2016-06-22 09:26] LABS: HEMATOCRIT 25.4 % (42-52)
[2016-06-22] MEDS ORDERED: POTASSIUM CHLORIDE 10 MEQ TABCR PO ONE (09:30)
[2016-06-22] MEDS: POTASSIUM CHLR 10 MEQ / WTR 10 MEQ in PREMIXED WATER 100 ML IV SCH ×2 (09:43→10:43)
--- NOTE | 2016-06-22 11:31 | Gastroenterology Progress Note ---
Progress Note Date of Service: June 22, 2016 Subjective Pt evaluation today including: conversation w/ patient, conversation w/ family Feels "perfect" no issues, has a brown BM this AM. No pain- 1 unit of PRBCs tx yesterday. Medications Current Inpatient Medications Medications (Trade) Dose Ordered Sig/Anali Route Start Time Stop Time Status Last Admin Dose Admin Acetaminophen (Tylenol Tab) 650 mg Q4H PRN PO 06/20/16 17:15 07/20/16 17:14 06/22/16 08:17 650 MG Al Hydrox/Mg Hydrox/Simethicone (Maalox Max Susp) 15 ml Q4H PRN PO 06/20/16 17:15 07/20/16 17:14 Magnesium Hydroxide (Milk Of Magnesia Susp) 30 ml Q12H PRN PO 06/20/16 17:15 07/20/16 17:14 Ondansetron HCl (Zofran Inj) 4 mg Q6H PRN IV 06/20/16 17:15 07/20/16 17:14 Nitroglycerin (Nitrostat Tab) 0.4 mg UD PRN SL 06/20/16 17:15 07/20/16 17:14 Polyethylene 17 gm 17 gm DAILY PRN PO 06/20/16 17:15 07/20/16 17:14 Potassium Chloride/Sodium Chloride (Nss + 20meq KCl 1000ml) 1,000 ml @ 100 mls/hr Q10H IV 06/20/16 20:00 07/20/16 19:59 06/22/16 02:23 100 MLS/HR Albuterol/ Ipratropium (Combivent Respimat Inh) 1 puffs QID INH 06/20/16 21:00 07/20/16 20:59 06/22/16 08:07 1 PUFFS Hydralazine HCl (HydrALAZINE INJ) 10 mg Q6 PRN IV. 06/20/16 17:15 07/20/16 17:14 Metoprolol Tartrate (Lopressor Iv) 5 mg Q6 PRN IV 06/20/16 17:30 07/20/16 17:29 Atenolol (Tenormin Tab) 100 mg BID PO 06/20/16 21:00 07/20/16 20:59 06/22/16 08:08 100 MG Diltiazem HCl (TIAzac CAP) 180 mg QAM PO 06/21/16 09:00 07/21/16 08:59 06/22/16 08:09 180 MG Potassium Chloride 40 meq 40 meq QAM PO 06/21/16 09:00 07/21/16 08:59 06/22/16 08:08 40 MEQ Pantoprazole Sodium 40 mg/ Dextrose 100 ml @ 20 mls/hr Q5H IV 06/20/16 20:00 07/20/16 19:59 06/22/16 08:07 20 MLS/HR Ceftriaxone Sodium 1 gm/ Dextrose 50 ml @ 100 mls/hr Q24H IV 06/21/16 02:30 06/26/16 02:29 Future hold 06/22/16 05:52 100 MLS/HR Potassium Chloride/Prmx (Kcl 10 Meq / Wtr/Premixed Water) 100 ml @ 100 mls/hr Q1H IV 06/22/16 09:30 06/22/16 11:29 06/22/16 10:43 100 MLS/HR Objective Vital Signs Date Time Temp Pulse Resp B/P Pulse Ox O2 Delivery O2 Flow Rate FiO2 06/22/16 08:00 Room Air 06/22/16 07:26 36.6 98 20 102/66 99 Room Air 06/22/16 04:00 Room Air 06/22/16 03:12 36.5 69 18 119/64 92 Room Air 06/22/16 00:00 Room Air 06/21/16 23:55 36.9 77 16 103/64 94 Room Air 06/21/16 20:12 36.5 66 18 111/63 95 Room Air 06/21/16 20:00 Room Air 06/21/16 16:00 Room Air 06/21/16 15:34 36.7 62 20 108/69 98 06/21/16 12:00 Room Air 06/21/16 11:58 36.6 103 18 112/73 94 Physical Exam General Appearance: WD/WN Neck: supple Respiratory/Chest: chest non-tender Cardiovascular: regular rate, rhythm Abdomen: normal bowel sounds, non tender, + pertinent finding (protuberant) Extremities: normal range of motion 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 Laboratory Results Last 24 Hours Test 06/21/16 14:15 06/21/16 22:05 06/22/16 06:20 06/22/16 09:15 Hemoglobin 8.3 g/dL 8.2 g/dL Hematocrit 24.8 % 25.4 % Sodium Level 133 mmol/L 133 mmol/L Potassium Level 2.8 mmol/L 3.0 mmol/L 3.0 mmol/L Chloride Level 91 mmol/L 92 mmol/L Carbon Dioxide Level 38 mmol/L 36 mmol/L Anion Gap 4.0 mmol/L 5.0 mmol/L Blood Urea Nitrogen 11 mg/dl 9 mg/dl Creatinine 0.82 mg/dl 0.77 mg/dl Est Creatinine Clear Calc Drug Dose 108.6 ml/min 116.4 ml/min Estimated GFR () 106.8 109.6 Estimated GFR (Non- 92.1 94.6 BUN/Creatinine Ratio 13.2 12.1 Random Glucose 102 mg/dl 104 mg/dl Calcium Level 8.1 mg/dl 8.0 mg/dl Total Bilirubin 1.7 mg/dl Aspartate Amino Transf (AST/SGOT) 33 U/L Alanine Aminotransferase (ALT/SGPT) 16 U/L Alkaline Phosphatase 97 U/L Total Protein 6.0 gm/dl Albumin 2.5 gm/dl Globulin 3.5 gm/dl Albumin/Globulin Ratio 0.7 Assessment and Plan A 65-year-old gentleman with overt obscure gastrointestinal bleeding. He has no evidence of any active or acute ongoing bleeding will discuss with Dr. Roman if desires to repeat EGD vs small bowel evaluation OK to advance diet change PPI to BID orally NPO after MN for possible EGD
[2016-06-22] MEDS ORDERED: POTASSIUM CHLORIDE 10 MEQ TABCR PO STA (16:08)
[2016-06-22 17:08] LABS: MAGNESIUM 1.5 mg/dl (1.8-2.4)
[2016-06-22] MEDS: MAGNESIUM SULFATE 1GM / D5W 1 GM in PREMIXED IN D5W 100 ML IV SCH ×2 (19:59→20:56)
[2016-06-22] MEDS: PANTOprazole SOD 40 MG TAB PO SCH (20:57)
[2016-06-23] VITALS (7 sets, daily range): BP systolic 102–129; BP diastolic 67–84; PULSE 78–88; TEMP 36.4–36.9; O2SAT 93–97
[2016-06-23] MEDS: CEFTRIAXONE SOD INJ 1 GM in DEXTROSE 5% ADD-VANTAGE 50ML 50 ML IV SCH (05:46)
[2016-06-23 06:03] LABS: BASO % 0.5 %; BASO ABS # 0.03 K/uL (0-0.2); EOS % 2.5 %; HEMATOCRIT 25.6 % (42-52); IG% 0.2 %; LYMPH % 21.8 %; LYMPH ABS # 1.21 K/uL (1.2-3.4); MEAN CELL VOLUME 83.4 fL (80-100); MEAN CORPUSCULAR HEMOGLOBIN 28.3 pg (25-34); MEAN PLATELET VOLUME 9.4 fL (7.4-10.4); MONO % 9.7 %; NEUT % 65.3 %; PLATELET COUNT 230 K/uL (130-400); RED BLOOD COUNT 3.07 M/uL (4.7-6.1); WHITE BLOOD COUNT 5.55 K/uL (4.8-10.8)
[2016-06-23 06:33] LABS: ALB/GLOB RATIO 0.8 (0.9-2); BUN/CREATININE RATIO 9.6 (10-20); CALCIUM 7.7 mg/dl (8.5-10.1); CREATININE 0.93 mg/dl (0.60-1.40); MAGNESIUM 2.1 mg/dl (1.8-2.4); POTASSIUM 3.4 mmol/L (3.5-5.1)
[2016-06-23 07:46] LABS: COMPLETE YES
[2016-06-23] MEDS: IPRATROPIUM BROMIDE/ALBUTEROL respimat INH INH SCH ×2 (08:21→13:51)
[2016-06-23] MEDS ORDERED: LIDOCAINE HCL 2% 2 ML VIAL (20MG/ML) ONE (12:13)
[2016-06-23] MEDS ORDERED: PROPOFOL IV EMULSION 10 MG/ML 20 ML VIAL IV ONE (12:13)
--- NOTE | 2016-06-23 13:00 | Anesthesiology Progress Note ---
Anesthesia Post Op Note Date & Time June 23, 2016 at 12:59 Vital Signs Pain Intensity: 0 Vital Signs Past 12 Hours Date Time Temp Pulse Resp B/P Pulse Ox O2 Delivery O2 Flow Rate FiO2 06/23/16 12:57 76 18 113/68 96 Room Air 06/23/16 12:44 109 18 122/65 99 Room Air 06/23/16 12:00 94 Room Air 06/23/16 11:45 36.4 88 20 118/74 06/23/16 11:38 36.7 76 18 119/77 100 Room Air 06/23/16 11:18 36.9 78 18 112/72 93 Room Air 06/23/16 07:47 Room Air 06/23/16 06:58 36.9 78 18 112/72 93 Room Air 06/23/16 04:16 36.8 78 20 102/67 95 Room Air 06/23/16 04:00 Room Air Notes Mental Status: alert / awake / arousable, participated in evaluation Pt Amnestic to Procedure: Yes Nausea / Vomiting: adequately controlled Pain: adequately controlled Airway Patency, RR, SpO2: stable & adequate BP & HR: stable & adequate Hydration State: stable & adequate Anesthetic Complications: no major complications apparent Pt doing well.
--- NOTE | 2016-06-23 13:27 | GI REPORT ---
Procedure Date: 06/23/2016 12:10 PM Procedure: Small bowel enteroscopy Indications: GI bleeding source not documented by previous EGD and colonoscopy Medicines: Monitored Anesthesia Care Complications: No immediate complications. Estimated Blood Loss: Estimated blood loss: none. Procedure: Pre-Anesthesia Assessment: - Prior to the procedure, a History and Physical was performed, and patient medications and allergies were reviewed. The patient's tolerance of previous anesthesia was also reviewed. The risks and benefits of the procedure and the sedation options and risks were discussed with the patient. All questions were answered, and informed consent was obtained. Prior Anticoagulants: The patient has taken Eliquis (apixaban), last dose was 3 days prior to procedure. ASA Grade Assessment: III - A patient with severe systemic disease. After reviewing the risks and benefits, the patient was deemed in satisfactory condition to undergo the procedure. After obtaining informed consent, the endoscope was passed under direct vision. Throughout the procedure, the patient's blood pressure, pulse, and oxygen saturations were monitored continuously. The scope was introduced through the mouth and advanced to the proximal jejunum. The small bowel enteroscopy was accomplished without difficulty. The patient tolerated the procedure well. Findings: The esophagus was normal. The stomach was normal. There was no evidence of significant pathology in the entire examined duodenum. There was no evidence of significant pathology in the proximal jejunum. Impression: - Normal esophagus. - Normal stomach. - Normal examined duodenum. - The examined portion of the jejunum was normal. - No specimens collected. Recommendation: - Return patient to [facility] for [facility] care. - Advance diet as tolerated. - Continue present medications, but consider risk versus benefit of continued Eliquis therapy. Cameron Roman, DO 06/23/2016 1:26:33 PM This report has been signed electronically. Note Initiated On: 06/23/2016 12:10 PM I attest to the content of the Intraoperative Record and orders documented therein, exceptions below
[2016-06-23] MEDS: PANTOprazole SOD 40 MG TAB PO SCH (13:50)
[2016-06-23] MEDS: POTASSIUM CHLORIDE 20 MEQ TABCR PO SCH (13:50)
[2016-06-23] MEDS: DILTIAZEM HCL (TIAzac) 180 MG CAPCR PO SCH (13:51)
--- NOTE | 2016-06-23 14:43 | Discharge Summary ---
Discharge Summary Date of Service June 23, 2016. (Lali Gómez MD) Discharge Summary Admission Date: June 20, 2016 at 17:38 Discharge Date: June 23, 2016 Discharge Disposition: Home Principal Diagnosis: anemia Immunizations: Have You Had Influenza Vaccine: N/A History of Tetanus Vaccine?: 4-5 YEARS AGO History of Pneumococcal: Yes History of Hepatitis B Vaccine: No Procedures: EGD Consultations: Dr Nehemiah vazquez (Lali Gómez MD) Medication Reconciliation New Medications: Pantoprazole (Pantoprazole Sodium) 40 Mg Tab 40 MG PO BID for 30 Days, #60 TAB Continued Medications: Atenolol (Tenormin) 100 Mg Tab 100 MG PO BID, #60 Diltiazem Hcl Ext Rel (Tiazac) 180 Mg Capcr 180 MG PO QAM, CAP Folic Acid (Folic Acid) 1 Mg Tab 7 MG PO DAILY, #210 Furosemide (Lasix) 40 Mg Tab 40 MG PO QAM, TAB Ipratropium-Albuterol (Combivent Respimat) 1 Aer Aer 1 PUFFS INH QID, INH Multivitamin (Multivitamin) Tab 1 TAB PO QAM, TAB Nicotine (Nicoderm Cq) 21 Mg/24 Hr Dis 1 PATCH TOP DAILY for 28 Days, #28 PATCH 1 Refill Potassium Ext Rel (Klor-Con) 20 Meq Tabcr 40 MEQ PO QAM, TAB Discontinued Medications: Apixaban (Eliquis) 5 Mg Tab 5 MG PO BID, #60 Metolazone (Zaroxolyn) 5 Mg Tab 5 MG PO Q2D, TAB Pantoprazole (Protonix) 40 Mg Tab 40 MG PO QAM, #30 TAB Discharge Exam Patient has not had any dark stools since admission. Feeling well We discussed plan for discharge and patient agreeable to plan. Reflected understanding of education Review of Systems: Constitutional: No fever, No sweats Eyes: No worsening of vision ENT: No hearing loss Respiratory: No cough, No dyspnea at rest, No dyspnea on exertion, No shortness of breath, No sputum, No wheezing Cardiovascular: No chest pain Abdomen: No constipation, No diarrhea, No nausea, No pain, No vomiting Musculoskeletal: No joint pain, No muscle pain Genitourinary - Male: No dysuria, No hematuria Neurologic: No balance problems, No numbness/tingling, No weakness Endocrine: No fatigue Physical Exam: General Appearance: no apparent distress Eyes: normal inspection ENT: normal ENT inspection Neck: supple Respiratory/Chest: normal breath sounds, no respiratory distress, no accessory muscle use Cardiovascular: regular rate, rhythm, no murmur Abdomen / GI: normal bowel sounds, non tender, soft Extremities: normal inspection, no calf tenderness 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: alert, normal mood/affect, normal reflexes, oriented x 3 Skin: normal color, warm/dry, no rash Lymphatic: no adenopathy (Lali Gómez MD) Hospital Course Patient admitted with anemia and black stools with being Hemoccult positive in his PCPs office. His last known hemoglobin was 9.6 the end of April during his last hospitalization and has not been checked since then. He has been back on Eliquis during the last couple of months. Hemoglobin dropped to 7.2 shortly after admission he was transfused 1 unit of packed red blood cells. The eliquis was held and plan was for EGD. The patient did not have any concerning changes in the EGD or any active bleeding noted. The Hgb has been stable at approx 8.5 since the transfusion. The risks and benefits of Eliquis was discussed but because of the acute change in hgb will not restart the Eliquis for now and anticoag for his a fibb can be discussed with Dr Garcia at follow up. He was also found to have hyponatremia and hypokalemia will in house. The metolazone was held and there was improvement of his hypokalemia. Would recommend follow up BMP in outpatient setting. Anemia, secondary GI bleed on Eliquis - cardiac biomarkers x 2 negative. - Eliquis has been held - EGD did not reflect any acute bleeding/ concerning mucosal changes - Protonix BID - EGD 04/24- irregular z-line, gastritis, and normal duodenum - Colonoscopy 05/05- diverticulosis, and internal hemorrhoids Hypokalemia -repleted as needed - follow up BMP in outpatient setting is recommended - Metolazone held Chronic hyponatremia: - repeat BMP in outpt - sodium on d/c was 134 Chronic diastolic CHF: - Lasix 40 mg PO and Metolazone 5 mg Q2D held due to hypotension, hypokalemia, and hyponatremia - will restart lasix - ECHO 04/30/16 * 1. Normal left ventricular size and systolic function. EF 60-65%. No regional wall motion abnormalities. Severe concentric left ventricular hypertrophy. * 2. The right ventricle is moderate to severely dilated. The right ventricular systolic function is normal. * 3. Moderate biatrial dilation. * 4. Mild mitral regurgitation. * 5. Mildly elevated right ventricular systolic pressure; RVSP 39 mmHg. * 6. Compared to prior study on 01/30/2015, estimated RVSP is now mildly elevated. A.fib: - Eliquis held--> follow up with Dr Garcia - Atenolol 100 mg BID and Diltiazem 180 mg with holding parameters UTI - Coag negative staph noted--> did receive Rocephin in house however will not continue as asymptomatic Total Time Spent: Less than 30 minutes This includes examination of the patient, discharge planning, medication reconciliation, and communication with other providers. (Lali Gómez MD) Resident Physician Supervision Note: I interviewed and examined the patient. Discussed with Dr. Gómez and agree with findings and plan as documented in the note. Any exceptions or clarifications are listed here: None Documented By: Fadi Boyd feeling better, wants to go home after scope. vitals noted nad breathing unlabored no pallor or icterus GI bleed -for EGD today - if no worrisome findings, OK for home w remainder of w /u and f/u as outpt. stop eliquis (Fadi Boyd, D.O.) Discharge Instructions Please refer to the electronic Patient Visit Report (Discharge Instructions) for additional information. (Lali Gómez MD) Additional Copies To Erma Santos MD
[2016-06-23] MEDS ORDERED: PRT40 PO (14:45)
--- NOTE | 2016-06-23 14:58 | Discharge Instructions ---
Discharge Instructions Date of Service June 23, 2016. Admission Reason for Admission: Gi Bleed Discharge Discharge Diagnosis / Problem: anemia Discharge Goals Goal(s): Learn about illness, Diagnostic testing Activity Recommendations Activity Limitations: resume your previous activity . Instructions / Follow-Up Instructions / Follow-Up As you know, you were admitted to the hospital for the evaluation of bloody/ dark stools and concern for a lower GI bleed while on Eliquis. While in the hospital it was found that your blood count had significantly dropped so you had received a blood transfusion. After this blood transfusion your blood count had stabilized but because there is concern for ongoing bleeding an EGD was recommended. This was completed today and did not show any active bleeding or any concerning changes in the lining of your stomach. 1. Hold the Eliquis as you recently had a GI bleed 2. Follow up with Dr Garcia regarding anticoagulation aka blood thinner medication as you do have atrial fibrillation and blood thinners are used to held prevent stroke 3. Continue Protonix however start taking it twice a day instead of once a day until follow up with GI While you were admitted your potassium and sodium were quite low. This may very well be from your "water pills" Metolazone and Lasix. We held these medications while you were in the hospital and repleted your potassium level. 1. Continue to hold metolazone on discharge until discussing with Dr Garcia 2. Continue lasix 3. Your PCP may ask you to repeat your blood test to make sure your potassium levels are stable We also noted that your urine possibly reflected a urinary tract infection however the bug that we did culture is usually secondary to a "dirty" sample. You did receive antibiotics while in the hospital however no need to continue them. We wish you well Fifi Gómez Current Hospital Diet Patient's current hospital diet: AHA Diet (Heart Healthy) Discharge Diet Recommended Diet: Regular Diet Procedures Procedures Performed: EGD WITH ENTEROSCOPY Pending Studies Studies pending at discharge: no Medical Emergencies . Who to Call and When: Medical Emergencies: If at any time you feel your situation is an emergency, please call 911 immediately. . Non-Emergent Contact Non-Emergency issues call your: Primary Care Provider, Assistant Child Care Teacher Call Non-Emergent contact if: you have a fever . . "Provider Documentation" section prepared by Lali Gómez. . VTE Core Measure Inpt VTE Proph given/why not?: T.E.D. Stockings, SCD's, Contraindicated
[2016-08-19] MEDS ORDERED: FLV1 PO (11:56)
[2016-08-19] MEDS ORDERED: ATEN100T PO (13:52)
[2016-08-22] MEDS ORDERED: PANT40TA2 PO (16:15)
[2016-12-24] MEDS ORDERED: FRS/40 PO (11:48)
[2016-12-24] MEDS ORDERED: MULT-506 PO (11:48)
== END 2016-06-23 17:46 | disposition home or self-care (01) | DRG 813 ==
LOC: ENRESERVTM → ENRESERVDT → C.EDB 15:08 → C.MED 17:38
PROVIDERS: ADMIT Hospitalist; ATTEND Family Medicine
PROC: 0DJ08ZZ Inspection of Upper Intestinal Tract, Via Natural or Artificial Opening Endoscopic (ICD-10-PCS; principal; 2016-06-23 12:15)
DX: D68.32 Hemorrhagic disorder due to extrinsic circulating anticoagulants (principal); D62 Acute posthemorrhagic anemia; I50.32 Chronic diastolic (congestive) heart failure; N39.0 Urinary tract infection, site not specified; K92.1 Melena; E87.1 Hypo-osmolality and hyponatremia; B95.8 Unspecified staphylococcus as the cause of diseases classified elsewhere; T45.515A Adverse effect of anticoagulants, initial encounter; I95.9 Hypotension, unspecified; E87.6 Hypokalemia; I48.91 Unspecified atrial fibrillation; I87.8 Other specified disorders of veins; I11.0 Hypertensive heart disease with heart failure; J44.9 Chronic obstructive pulmonary disease, unspecified; E66.9 Obesity, unspecified; Z68.39 Body mass index [BMI] 39.0-39.9, adult; Z87.898 Personal history of other specified conditions; Z86.73 Personal history of transient ischemic attack (TIA), and cerebral infarction without residual deficits; Z87.891 Personal history of nicotine dependence; Z79.01 Long term (current) use of anticoagulants; Z79.899 Other long term (current) drug therapy

== ENCOUNTER → 2016-07-04 | Outpatient (CLI) | payer BC, OTHER ==
[~2016-07-04] MED LIST changes: -APIX1TAB3 PO; +ATEN100T PO; +FLV1 PO; +FRS/40 PO; -FURO40TA3 PO; -MCRK20 PO; -NCDT21X TOP; +NICO21DI4 TOP; +PANT40TA2 PO; +POTA-65 PO; +POTA20TA16 PO; +SODI1TAB PO; +SPR25 PO
[2016-07-04 16:46] LABS: BASO % 1.5 %; BASO ABS # 0.07 K/uL (0-0.2); EOS % 2.3 %; HEMATOCRIT 28.1 % (42-52); IG% 0.2 %; LYMPH % 27.6 %; LYMPH ABS # 1.31 K/uL (1.2-3.4); MEAN CELL VOLUME 80.3 fL (80-100); MEAN CORPUSCULAR HEMOGLOBIN 26.6 pg (25-34); MEAN CORPUSCULAR HGB CONC 33.1 g/dl (32-36); MEAN PLATELET VOLUME 9.4 fL (7.4-10.4); MONO % 17.7 %; NEUT % 50.7 %; PLATELET COUNT 280 K/uL (130-400); WHITE BLOOD COUNT 4.75 K/uL (4.8-10.8)
[2016-07-04 16:58] LABS: BLOOD UREA NITROGEN 4 mg/dl (7-18); BUN/CREATININE RATIO 4.5 (10-20); CALCIUM 8.2 mg/dl (8.5-10.1); CARBON DIOXIDE 35 mmol/L (21-32); CHLORIDE 84 mmol/L (98-107); CREATININE 0.93 mg/dl (0.60-1.40); GLUCOSE 123 mg/dl (70-99); POTASSIUM 2.7 mmol/L (3.5-5.1); SODIUM 127 mmol/L (136-145)
[2016-07-04 17:27] LABS: ANISOCYTOSIS PRESENT; COMPLETE YES; ECHINOCYTES 1+
== END | disposition home or self-care (01) ==
LOC: C.LABBFT 14:21
PROVIDERS: ATTEND Family Medicine
DX: K92.2 Gastrointestinal hemorrhage, unspecified (principal); I50.30 Unspecified diastolic (congestive) heart failure

== ENCOUNTER 2016-07-11 17:51 | Inpatient (IN) | payer BC, OTHER ==
[~2016-07-11] VITALS: Ht 170.2 cm; Wt 109.1 kg
[~2016-07-11 17:51] MED LIST changes: -ATEN100T PO; -FLV1 PO; -IPRA1AER2 INH; -PANT40TA2 PO; -POTA-65 PO; -SODI1TAB PO; -SPR25 PO; -ZRX5 PO
--- NOTE | 2016-07-11 19:08 | DIAGNOSTIC IMAGING REPORT ---
SINGLE VIEW CHEST CLINICAL HISTORY: Atypical chest pain. FINDINGS: An AP, portable, upright chest radiograph is compared to study dated 05/08/2016. The examination is degraded by portable technique, large body habitus, and patient rotation. The heart is enlarged and there is atherosclerotic calcification of the thoracic aorta. The pulmonary vasculature is noncongested. Chronic interstitial thickening is unchanged. The lungs and pleural spaces are clear. No pneumothorax is seen. The bony thorax is grossly intact. IMPRESSION: Cardiomegaly with no acute cardiopulmonary abnormality. Electronically signed by: José Miguel Butler M.D. 07/11/2016 7:07 PM Dictated Date/Time: 07/11/2016 7:06 PM
[2016-07-11] MEDS ORDERED: ZRX5 PO (19:51)
[2016-07-11 19:54] LABS: BASO % 1.1 %; BASO ABS # 0.05 K/uL (0-0.2); COMPLETE YES; EOS % 1.6 %; HEMATOCRIT 28.1 % (42-52); LYMPH % 29.2 %; LYMPH ABS # 1.31 K/uL (1.2-3.4); MEAN CELL VOLUME 78.9 fL (80-100); MEAN CORPUSCULAR HEMOGLOBIN 27.5 pg (25-34); MEAN CORPUSCULAR HGB CONC 34.9 g/dl (32-36); MEAN PLATELET VOLUME 8.9 fL (7.4-10.4); NEUT % 51.1 %; PLATELET COUNT 245 K/uL (130-400); RED BLOOD COUNT 3.56 M/uL (4.7-6.1); WHITE BLOOD COUNT 4.48 K/uL (4.8-10.8)
[2016-07-11 20:11] LABS: INR 1.3 (0.9-1.1)
[2016-07-11 20:25] LABS: BUN/CREATININE RATIO 7.8 (10-20); CALCIUM 8.3 mg/dl (8.5-10.1); CREATININE 0.81 mg/dl (0.60-1.40); MAGNESIUM 1.7 mg/dl (1.8-2.4)
[2016-07-11] MEDS ORDERED: POTASSIUM CHLORIDE 10 MEQ TABCR PO STA (20:30)
[2016-07-11] MEDS ORDERED: SODIUM CHLORIDE 0.9% 500ML 500 ML IV STA (20:30)
[2016-07-11] MEDS ORDERED: POTASSIUM CHLORIDE 10 MEQ / 100ML WTR IV STA (20:30)
[2016-07-11 21:36] VITALS: Ht 170.2 cm; Wt 109.1 kg
[2016-07-11] MEDS ORDERED: POTASSIUM CHLORIDE 20 MEQ TABCR PO ONE (23:08)
[2016-07-11] MEDS ORDERED: MAGNESIUM OXIDE 400 MG TAB PO ONE (23:13)
--- NOTE | 2016-07-11 23:14 | History and Physical ---
History & Physical Date & Time of Service: Jul 11, 2016 at 23:14 Chief Complaint: Hypokalemia, Hyponatremia Primary Care Physician: Erma Santos MD History of Present Illness Source: patient The patient is a 65-year-old male who is referred to the emergency department due to routine laboratories performed in the outpatient setting showing potassium 2.1, which is a decrease from 2.5 every days ago in spite of doubling his potassium dosing. He feels well. He denies chest pain, shortness of breath , palpitations, fatigue, numbness or tingling in arms or legs. Review his medication list shows that he is still taking Zaroxolyn, along with his Lasix. Past Medical/Surgical History Medical Problems: (1) Atrial Fibrillation Permanent Comment: Atrial fibrillation treated with direct cardioversion on November 20, 2010 Status: Chronic (2) GI bleed Status: Resolved (3) Hypertension Nos Status: Chronic (4) Pure Hypercholesterolem Status: Chronic (5) Tobacco Use Disorder Status: Chronic Family History Hypertension Social History Smoking Status: Former Smoker Smokeless Tobacco Use: No Alcohol Use: heavy Drug Use: none Marital Status: Housing status: lives with family Occupational Status: retired Immunizations History of Influenza Vaccine: N/A History of Tetanus Vaccine?: 4-5 YEARS AGO History of Pneumococcal: Yes History of Hepatitis B Vaccine: No Multi-Drug Resistant Organisms History of MDRO: No Allergies Coded Allergies: No Known Allergies (Verified , 07/11/16) Home Medications Scheduled Atenolol (Tenormin), 100 MG PO BID Diltiazem Hcl Ext Rel (Tiazac), 180 MG PO QAM Folic Acid (Folic Acid), 7 MG PO DAILY Furosemide (Lasix), 40 MG PO BID Ipratropium-Albuterol (Combivent Respimat), 1 PUFFS INH QID Metolazone (Metolazone), 0.5 TAB PO DAILY Multivitamin (Multivitamin), 1 TAB PO QAM Nicotine (Nicoderm Cq), 1 PATCH TOP DAILY Pantoprazole (Pantoprazole Sodium), 40 MG PO BID Potassium Ext Rel (Klor-Con), 2 TAB PO BID Review of Systems The patient denies chest pain, palpitations, shortness of breath, cough, lower extremity swelling, vision change, hearing change, sore throat, fevers, chills, sweats, weight change, fatigue, nausea, vomiting, abdominal pain, pelvic pain, blood in urine or stool, dysuria, urinary frequency or urgency, lightheadedness , dizziness, headache, memory loss, rash, abnormal bruising or bleeding, imbalance, focal or generalized weakness, numbness or tingling in arms or legs, arthralgias or myalgias, back or neck pain, night sweats, or allergy symptoms. The review of systems is otherwise negative other than for that already noted above, and at least 10 systems have been reviewed. Physical Exam Vital Signs Date Time Temp Pulse Resp B/P (MAP) Pulse Ox O2 Delivery O2 Flow Rate FiO2 07/11/16 22:22 36.7 74 18 108/77 98 Room Air 07/11/16 21:36 Room Air 07/11/16 20:20 36.7 86 112/64 100 Room Air 07/11/16 19:45 62 07/11/16 19:21 Room Air 07/11/16 18:02 36.5 66 18 99/66 96 The patient is awake, alert and oriented 3, normocephalic and atraumatic, lying in bed and in no acute distress. HEENT--PERRL, EOMI, mucous membranes and oropharynx dry. Neck--supple, no JVD or bruits, thyroid normal, trachea midline, no adenopathy. Heart--normal S1 and S2, no extra beats, no murmurs, rubs or gallops. Lungs--decreased breath sounds at the bases bilaterally, no respiratory distress , no accessory muscle use. Abdomen--normal bowel sounds and soft, nontender and nondistended, obese. Extremities--no cyanosis, clubbing. There is bilaterally 3+ pretibial pitting edema. There are good distal pulses b/l. Dermatologic--chronic venous stasis changes bilaterally. Neurologic--cranial nerves II through XII grossly intact, motor and sensory examination normal. Rheumatologic--normal range of motion, nontender, muscles and joints. Psychiatric--normal affect. Diagnostics Laboratory Results Results Past 24 Hours Test 07/11/16 19:40 07/11/16 19:45 07/11/16 23:12 Range/Units White Blood Count 4.48 4.8-10.8 K/uL Red Blood Count 3.56 4.7-6.1 M/uL Hemoglobin 9.8 14.0-18.0 g/dL Hematocrit 28.1 42-52 % Mean Corpuscular Volume 78.9 80-100 fL Mean Corpuscular Hemoglobin 27.5 25-34 pg Mean Corpuscular Hemoglobin Concent 34.9 32-36 g/dl Platelet Count 245 130-400 K/uL Mean Platelet Volume 8.9 7.4-10.4 fL Neutrophils (%) (Auto) 51.1 % Lymphocytes (%) (Auto) 29.2 % Monocytes (%) (Auto) 17.0 % Eosinophils (%) (Auto) 1.6 % Basophils (%) (Auto) 1.1 % Neutrophils # (Auto) 2.29 1.4-6.5 K/uL Lymphocytes # (Auto) 1.31 1.2-3.4 K/uL Monocytes # (Auto) 0.76 0.11-0.59 K/uL Eosinophils # (Auto) 0.07 0-0.5 K/uL Basophils # (Auto) 0.05 0-0.2 K/uL RDW Standard Deviation 55.7 36.4-46.3 fL RDW Coefficient of Variation 19.0 11.5-14.5 % Immature Granulocyte % (Auto) 0.0 % Immature Granulocyte # (Auto) 0.00 0.00-0.02 K/uL Prothrombin Time 14.0 9.0-12.0 SECONDS Prothromb Time International Ratio 1.3 0.9-1.1 Activated Partial Thromboplast Time 26.9 21.0-31.0 SECONDS Partial Thromboplastin Ratio 1.0 Sodium Level 123 136-145 mmol/L Potassium Level 2.0 3.5-5.1 mmol/L Chloride Level 71 98-107 mmol/L Carbon Dioxide Level 42 21-32 mmol/L Anion Gap 10.0 3-11 mmol/L Blood Urea Nitrogen 6 7-18 mg/dl Creatinine 0.81 0.60-1.40 mg/dl Est Creatinine Clear Calc Drug Dose 107.0 ml/min Estimated GFR () 107.3 Estimated GFR (Non- 92.6 BUN/Creatinine Ratio 7.8 10-20 Random Glucose 109 70-99 mg/dl Osmolality 248 280-300 mOsm/kg Calcium Level 8.3 8.5-10.1 mg/dl Magnesium Level 1.7 1.8-2.4 mg/dl Bedside Troponin I 0.000 0-0.045 ng/ml Diagnostic Radiology Patient Name: SANTOS GUNN Unit Number: [id number] Dictated: 07/11/161905 Transcribed: 07/11/161905 EV Printed Date/Time: [~ rep prt dt]/[~ rep prt tm] [~ rep ct labl] - [~ rep ct ivnm] [facility] [place] [address] Dictated: 07/11/161905 Transcribed: 07/11/161905 EV Printed Date/Time: [~ rep prt dt]/[~ rep prt tm] [~ rep ct labl] - [~ rep ct ivnm] SINGLE VIEW CHEST CLINICAL HISTORY: Atypical chest pain. FINDINGS: An AP, portable, upright chest radiograph is compared to study dated 05/08/2016. The examination is degraded by portable technique, large body habitus, and patient rotation. The heart is enlarged and there is atherosclerotic calcification of the thoracic aorta. The pulmonary vasculature is noncongested. Chronic interstitial thickening is unchanged. The lungs and pleural spaces are clear. No pneumothorax is seen. The bony thorax is grossly intact. IMPRESSION: Cardiomegaly with no acute cardiopulmonary abnormality. Electronically signed by: José Miguel Butler M.D. 07/11/2016 7:07 PM Dictated Date/Time: 07/11/2016 7:06 PM The status of this report is Signed. Draft = Not yet reviewed or approved by Radiologist. Signed = Reviewed and approved by Radiologist. <AttendingPhy></AttendingPhy> <FamilyPhy>Erma Santos MD</FamilyPhy> < PrimaryPhy>Erma Santos MD</PrimaryPhy> <UnitNumber>[id number]</UnitNumber > <VisitNumber>[id number]</VisitNumber> <PatientName>SANTOS GUNN</ PatientName> <DateOfBirth>1950</DateOfBirth> <Location>C.EDB</Location> < ServiceDate>07/11/16</ServiceDate> <MNE>ESINDI</MNE> <OrderingPhy>Leta, Santos S MD</OrderingPhy> <OrderingPhyMNE>f rep ord dr arreguin</OrderingPhyMNE> < DictatingPhyMNE>f rep dict dr arreguin</DictatingPhyMNE> <CCListMNE>f rep ct mne</ CCListMNE> <AdmittingPhyMNE>f pt admit dr arreguin</AdmittingPhyMNE> <AttendingPhyMNE >f pt attend dr arreguin</AttendingPhyMNE> <ConsultingPhyMNE>f pt consult dr arreguin</ConsultingPhyMNE> <FamilyPhyMNE>f pt fam dr arreguin</FamilyPhyMNE> <OtherPhyMNE>f pt other dr arreguin</OtherPhyMNE> < PrimaryPhyMNE>f pt prim care dr arreguin</PrimaryPhyMNE> <ReferringPhyMNE>f pt referring dr arreguin</ReferringPhyMNE> Impression Assessment and Plan Hyponatremia/hypokalemia/hypomagnesemia with significant hypo-osmolality--the patient will be admitted to the telemetry unit for close rhythm monitoring. We will increase potassium supplement to 40 mEq by mouth 4 times a day with the first dose tonight. Discontinue Zaroxolyn. Start spironolactone 50mg by mouth twice a day with first dose tonight. Start mag oxide 400 mg by mouth twice a day. We will hold Lasix 40 mg by mouth twice a day until electrolytes have been somewhat normalized. As noted above, the patient's rhythm in the emergency department is completely normal, and she feels well. Atrial fibrillation/hypertension--continue atenolol 100 mg by mouth twice a day , and diltiazem extended release 180 mg by mouth every morning. GERD/GI bleed history--continue pantoprazole 40 mg by mouth twice a day. Tobacco use disorder--continue NicoDerm CQ patch daily. Anemia of chronic disease--follow serial laboratories. Level of Care Telemetry Advanced Directives Existing Advance Directive: No Existing Living Will: No Existing Power of Agricultural Real Estate Agent: No Resuscitation Status FULL RESUSCITATION VTE Prophylaxis VTE Risk Assessment Done? Y/N: Yes Risk Level: Moderate Given or contraindicated: SCD's
[2016-07-11] MEDS ORDERED: NITROGLYCERIN 0.4 MG SL PER TAB CHARGE SL PRN (23:15)
[2016-07-11] MEDS ORDERED: ZOLPIDEM TARTRATE 5 MG TAB PO PRN (23:15)
[2016-07-11] MEDS ORDERED: SPIRONOLACTONE 25 MG TAB PO STA (23:35)
[2016-07-11 23:37] VITALS: O2SAT 98
[2016-07-12 00:12] VITALS: BP 113/72; PULSE 71; TEMP 36.9; O2SAT 93
--- NOTE | 2016-07-12 00:54 | EMERGENCY ROOM VISIT NOTE ---
History Report prepared by Nick: Savita Moyer Under the Supervision of: Dr. Santos Gillette M.D. 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 He had blood work today which found that his potassium was 2.1. His potassium dose was doubled several days ago. His potassium has dropped from 2.5 to 2.1 since increasing his dose, which concerned his doctor. He was referred to the ED. He reports that he feels well. His legs are tired at times, but he does not feel weak. He notes that he has had some intermittent chest discomfort which lasts for 1 second at a time for the past month. He last had the chest pain 2 days ago. He described it as sharp. He denies any chest pressure or tightness. He denies any palpitations, fever, diarrhea, or vomiting. He has some SOB when climbing the stairs which is normal for him. 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 Review of Systems See HPI for pertinent positives & negatives. A total of 10 systems reviewed and were otherwise negative. Past Medical & Surgical Medical Problems: (1) Atrial Fibrillation (2) Cellulitis of leg (3) Chest pain (4) CHF exacerbation (5) COPD exacerbation (6) GI bleed (7) Hypertension Nos (8) Pure Hypercholesterolem (9) Tobacco Use Disorder Family History Hypertension Social History Smoking Status: Former Smoker Alcohol Use: heavy Drug Use: none Marital Status: Occupation Status: retired Current/Historical Medications Scheduled Atenolol (Tenormin), 100 MG PO BID Diltiazem Hcl Ext Rel (Tiazac), 180 MG PO QAM Folic Acid (Folic Acid), 7 MG PO DAILY Furosemide (Lasix), 40 MG PO BID Ipratropium-Albuterol (Combivent Respimat), 1 PUFFS INH QID Metolazone (Metolazone), 0.5 TAB PO DAILY Multivitamin (Multivitamin), 1 TAB PO QAM Nicotine (Nicoderm Cq), 1 PATCH TOP DAILY Pantoprazole (Pantoprazole Sodium), 40 MG PO BID Potassium Ext Rel (Klor-Con), 2 TAB PO BID Allergies Coded Allergies: No Known Allergies (Verified , 07/11/16) Physical Exam Vital Signs Date Time Temp Pulse Resp B/P (MAP) Pulse Ox O2 Delivery O2 Flow Rate FiO2 07/11/16 22:22 36.7 74 18 108/77 98 Room Air 07/11/16 21:36 Room Air 07/11/16 20:20 36.7 86 112/64 100 Room Air 07/11/16 19:45 62 07/11/16 19:21 Room Air 07/11/16 18:02 36.5 66 18 99/66 96 Physical Exam Constitutional: Vital signs reviewed. Eyes: Pupils are equal round reactive to light. Conjunctiva are noninjected. ENT: Pharynx is clear without erythema or exudate. Mucous membranes are moist. Neck supple without meningeal signs. Respiratory: Clear to auscultation bilaterally. Breath sounds are equal bilaterally. Cardiovascular: Regular rate and rhythm. No rubs or gallops. GI: Soft, nondistended and nontender. Bowel sounds are present. Musculoskeletal: Bilateral lower extremity edema with venous stasis discoloration. No lower extremity tenderness. Integumentary: No cyanosis. Neurological: The patient is awake and alert. No focal deficits. Psychiatric: Normal affect. Medical Decision & Procedures ER Provider Diagnostic Interpretation: X-ray results as stated below per interpretation by me and the radiologist: SINGLE VIEW CHEST CLINICAL HISTORY: Atypical chest pain. FINDINGS: An AP, portable, upright chest radiograph is compared to study dated 05/08/2016. The examination is degraded by portable technique, large body habitus, and patient rotation. The heart is enlarged and there is atherosclerotic calcification of the thoracic aorta. The pulmonary vasculature is noncongested. Chronic interstitial thickening is unchanged. The lungs and pleural spaces are clear. No pneumothorax is seen. The bony thorax is grossly intact. IMPRESSION: Cardiomegaly with no acute cardiopulmonary abnormality. Electronically signed by: José Miguel Butler M.D. 07/11/2016 7:07 PM Dictated Date/Time: 07/11/2016 7:06 PM Laboratory Results 07/11/16 19:40 Red Blood Count 3.56, Mean Corpuscular Volume 78.9, Mean Corpuscular Hemoglobin 27.5, Mean Corpuscular Hemoglobin Concent 34.9, Mean Platelet Volume 8.9, Neutrophils (%) (Auto) 51.1, Lymphocytes (%) (Auto) 29.2, Monocytes (%) (Auto) 17.0, Eosinophils (%) (Auto) 1.6, Basophils (%) (Auto) 1.1, Neutrophils # (Auto ) 2.29, Lymphocytes # (Auto) 1.31, Monocytes # (Auto) 0.76, Eosinophils # (Auto ) 0.07, Basophils # (Auto) 0.05 07/11/16 19:40 Test 07/11/16 19:40 07/11/16 19:45 White Blood Count 4.48 K/uL (4.8-10.8) Red Blood Count 3.56 M/uL (4.7-6.1) Hemoglobin 9.8 g/dL (14.0-18.0) Hematocrit 28.1 % (42-52) Mean Corpuscular Volume 78.9 fL (80-100) Mean Corpuscular Hemoglobin 27.5 pg (25-34) Mean Corpuscular Hemoglobin Concent 34.9 g/dl (32-36) Platelet Count 245 K/uL (130-400) Mean Platelet Volume 8.9 fL (7.4-10.4) Neutrophils (%) (Auto) 51.1 % Lymphocytes (%) (Auto) 29.2 % Monocytes (%) (Auto) 17.0 % Eosinophils (%) (Auto) 1.6 % Basophils (%) (Auto) 1.1 % Neutrophils # (Auto) 2.29 K/uL (1.4-6.5) Lymphocytes # (Auto) 1.31 K/uL (1.2-3.4) Monocytes # (Auto) 0.76 K/uL (0.11-0.59) Eosinophils # (Auto) 0.07 K/uL (0-0.5) Basophils # (Auto) 0.05 K/uL (0-0.2) RDW Standard Deviation 55.7 fL (36.4-46.3) RDW Coefficient of Variation 19.0 % (11.5-14.5) Immature Granulocyte % (Auto) 0.0 % Immature Granulocyte # (Auto) 0.00 K/uL (0.00-0.02) Prothrombin Time 14.0 SECONDS (9.0-12.0) Prothromb Time International Ratio 1.3 (0.9-1.1) Activated Partial Thromboplast Time 26.9 SECONDS (21.0-31.0) Partial Thromboplastin Ratio 1.0 Anion Gap 10.0 mmol/L (3-11) Est Creatinine Clear Calc Drug Dose 107.0 ml/min Estimated GFR () 107.3 Estimated GFR (Non- 92.6 BUN/Creatinine Ratio 7.8 (10-20) Osmolality 248 mOsm/kg (280-300) Calcium Level 8.3 mg/dl (8.5-10.1) Magnesium Level 1.7 mg/dl (1.8-2.4) Total Bilirubin 1.7 mg/dl (0.2-1) Direct Bilirubin 0.7 mg/dl (0-0.2) Aspartate Amino Transf (AST/SGOT) 36 U/L (15-37) Alanine Aminotransferase (ALT/SGPT) 16 U/L (12-78) Alkaline Phosphatase 116 U/L (45-117) Total Protein 6.7 gm/dl (6.4-8.2) Albumin 2.9 gm/dl (3.4-5.0) Bedside Troponin I 0.000 ng/ml (0-0.045) Laboratory results as reviewed by me. Medications Administered Medications (Trade) Dose Ordered Sig/Anali Route Start Time Stop Time Status Last Admin Dose Admin Potassium Chloride (Kcl 10 Meq / Wtr) 10 meq NOW STAT IV 07/11/16 20:30 07/11/16 20:32 DC 07/11/16 20:38 10 MEQ Sodium Chloride 500 ml @ 999 mls/hr Q31M STAT IV 07/11/16 20:30 07/11/16 21:00 DC 07/11/16 20:39 999 MLS/HR Potassium Chloride (Klor-Con M10) 40 meq NOW STAT PO 07/11/16 20:30 07/11/16 20:32 DC 07/11/16 20:38 40 MEQ ECG Indication: chest pain, other (hypokalemia) Rate (beats per minute): 65 Rhythm: atrial fibrillation Findings: Q waves (Septal, Inferior), other (low voltage QRS) Comparison ECG Date: 22-Jun-2016 Change: no significant change ED Course 1829: The patient was evaluated in room B6. A complete history and physical exam was performed. 2029: Potassium Chloride 40 meq PO, NSS 500 ml @ 999 mls/hr IV, Potassium Chloride 10 meq IV. 2036: I reevaluated the patient. I discussed the results and treatment plan with him. He verbalized understanding and agreement. The patient will be evaluated for further management. 2125: I discussed the patient's case with LORENA Li - hospitalist. The patient will be evaluated for further management. Medical Decision This is a 65-year-old male who presents with low potassium and chest pain. Differential diagnosis includes medication side effect, lab error, pleurisy, costochondritis, GA, GERD. I did perform a limited focused review of portions of the patient's old chart on the electronic medical record. The patient was admitted June 20 for anemia and GI bleed. He had an EGD which was unremarkable. He was taken off Eliquis. His hemoglobin was 8.5 at discharge. His last hemoglobin on July 04 was 9.3. His potassium today was 2.1. Medication Reconciliation: I attest that I have personally reviewed the patient' s current medication list. Blood Pressure Screening: Patient was found to have normal blood pressure on screening and does not require follow-up. I did evaluate the patient as noted above. The patient is presenting with a low potassium. He has no complaints other than intermittent chest pain which she describes as a 1 second sharp pain. He states that he last had it 2 days ago. He has no associated symptoms with it. IV access was established. The patient was placed on a continuous monitor technician. I did order and personally review the patient's 12-lead EKG and chest x-ray as described above. I did order and review the patient's blood work as noted in the electronic medical record. He does have hyponatremia as well as hypokalemia. He was given normal saline IV. He was started on IV KCl and given oral potassium supplements. I did discuss the test results with the patient. I did recommend hospitalization for further evaluation. I did discuss case with the hospitalist and disease case manager. Consults Time Called: 2137 Consulting Physician: LORENA Li - hospitalist Returned Call: 2125 I discussed the patient's case with him. The patient will be evaluated for further management. Impression Primary Impression: Hypokalemia Additional Impressions: Hyponatremia Anemia Hypomagnesemia Chest pain Scribe Attestation The scribe's documentation has been prepared under my direct and personally reviewed by me in its entirety. I confirm that the note above accurately reflects all work, treatment, procedures, and medical decision making performed by me. Departure Information Dispostion Being Evaluated By Hospitalist Referrals Erma Santos MD (PCP) Patient Instructions My [facility] Problem Qualifiers Additional Impressions: Anemia Anemia type: unspecified type Qualified Codes: D64.9 - Anemia, unspecified Chest pain Chest pain type: precordial pain Qualified Codes: R07.2 - Precordial pain
[2016-07-12 03:12] VITALS: BP 95/62; PULSE 58; TEMP 36.5; O2SAT 96
[2016-07-12 07:12] LABS: BUN/CREATININE RATIO 8.2 (10-20); CALCIUM 7.6 mg/dl (8.5-10.1); CREATININE 0.74 mg/dl (0.60-1.40); MAGNESIUM 1.7 mg/dl (1.8-2.4); POTASSIUM 2.2 mmol/L (3.5-5.1)
[2016-07-12 08:17] VITALS: BP 96/72; PULSE 61; TEMP 36.5; O2SAT 96
[2016-07-12] MEDS: IPRATROPIUM BROMIDE/ALBUTEROL respimat INH INH SCH ×4 (08:23→20:51)
[2016-07-12] MEDS: PANTOprazole SOD 40 MG TAB PO SCH ×2 (08:25→20:52)
[2016-07-12] MEDS: MULTIVITAMIN TAB PO SCH (08:26)
[2016-07-12] MEDS: POTASSIUM CHLORIDE 20 MEQ TABCR PO SCH ×4 (08:26→20:53)
[2016-07-12] MEDS: DILTIAZEM HCL (TIAzac) 180 MG CAPCR PO SCH (08:27)
[2016-07-12] MEDS: NICOTINE 21 MG/24 HR TDSY TD SCH (08:28)
[2016-07-12] MEDS: SPIRONOLACTONE 25 MG TAB PO SCH ×2 (08:41→17:25)
[2016-07-12] MEDS ORDERED: MAGNESIUM CHLORIDE 64MG DELAYED REL TAB PO ONE (08:43)
[2016-07-12] MEDS ORDERED: MAGNESIUM OXIDE 400 MG TAB PO SCH (09:00)
[2016-07-12] MEDS ORDERED: FUROSEMIDE 40 MG TAB PO SCH (09:00)
[2016-07-12] MEDS ORDERED: SPIRONOLACTONE 25 MG TAB PO SCH (09:00)
--- NOTE | 2016-07-12 09:12 | PROGRESS NOTE ---
DATE: 07/12/2016 DATE: 07/12/2016. HISTORY OF PRESENT ILLNESS: Mr. Zarco is a 65-year-old obese white male with a history of hypertension, dyslipidemia, nicotine dependence, alcohol use, chronic diuretic therapy, and chronic atrial fibrillation (rate controlled and typically anticoagulated, but had a GI bleed in May 2016 which precluded the use of his anticoagulant) who presented acutely to [facility] Emergency Room yesterday complaining of abnormal laboratories and bilateral leg weakness. Laboratories revealed marked hypokalemia, hyponatremia, and hypomagnesemia along with evidence of metabolic alkalosis. The patient is currently being seen in room 220, and he offers no complaints at this time. He has had a modest improvement in his serum potassium level, but his magnesium level remains low, his bicarbonate level is elevated, and his chloride level is markedly low. Serum osmolality is low as well. The patient denies any recent nausea, vomiting, diarrhea, or recurrent GI bleeding to his knowledge. He does not use laxatives. He does drink alcohol, although he said he began drinking nonalcoholic beers about 3 weeks ago, at the same time he quit smoking. He has had an atypical chest pain over the past couple of months described as a very brief and sharp chest pain which is nonexertional and without associated symptoms. He denies any history of exertional chest pain, heaviness, tightness, pressure. Denies any shortness of breath, unusual dyspnea on exertion, orthopnea or PND. No syncope or near syncope. Please note that the patient was on Lasix on admission, and had been using metolazone as well which have likely contributed to his current metabolic alkalosis. MEDICATIONS: 1. Tenormin 100 mg b.i.d. 2. Tiazac 180 mg daily. 3. Folic acid 7 mg daily. 4. Combivent Respimat 1 puff q.i.d. 5. Multivitamin daily. 6. Nicoderm CQ 21 mg patch applied daily. 7. Protonix 40 mg p.o. b.i.d. 8. KCl mEq q.i.d. 9. Mag ox 400 mg b.i.d. 10. Spironolactone 50 mg b.i.d. 11. Ambien 5 mg at bedtime p.r.n. 12. Nitroglycerin 0.4 mg as needed. ALLERGIES: NKDA. PHYSICAL EXAMINATION: VITAL SIGNS: Temperature is 36.5 degree Celsius, pulse is 58-62 and irregularly irregular, respiratory rate is 14 and unlabored. Blood pressure is 95/62, SPO2 is 96% on room air. GENERAL: The patient in no acute distress. HEAD, EYES, EARS, NOSE, AND THROAT: Head is atraumatic, normocephalic. EOMs intact. Sclerae are anicteric. Facies symmetric. No perioral cyanosis. Mucous membranes are moist. NECK: Without thyromegaly, adenopathy or JVD. Carotid upstrokes +2 bilaterally without bruits. CHEST AND LUNGS: Are with diminished breath sounds throughout, no wheezes, rales, or rhonchi. Increased AP diameter of the chest is noted. CARDIOVASCULAR SYSTEM: S1 and S2 are irregularly irregular, distant, and borderline bradycardic. No obvious murmurs, gallops or rubs. PMI is nonpalpable. No lifts, heaves, or thrills. No abdominal, aortic or renal bruits. ABDOMINAL EXAMINATION: Bowel sounds are present. No masses, organomegaly or tenderness. EXTREMITIES: With normal radial and posterior tibial pulses. Pigmentation changes of bilateral lower extremities noted. +1 pretibial edema. +2 bipedal edema. No open areas noted. Current telemetry monitoring reveals rate controlled atrial fibrillation with occasional PVCs. LABORATORY DATA: Sodium is 125 mmol/L, potassium 1.2 mmol/L, chloride is 75 mmol/L, carbon dioxide is 44 mmol/L, BUN 6 mg/dL, creatinine is 0.74 mg/dL. Random glucose is 99 mg/dL. Serum osmolality is 248 milliosmoles/kg. Magnesium 1.7 mg/dL, total bilirubin 1.7 with direct bilirubin 0.7. ALT, AST and alkaline phosphatase are within normal limits. Serum albumin level is low at 2.9. INR 1.3. White blood cell count is 4.48. Hemoglobin 9.8 g/dL, hematocrit 28.1%, platelet count is 245,000. He appears to have a microcytic normochromic anemia. ASSESSMENT: 1. Metabolic alkalosis with hypokalemia, hyponatremia, and hypomagnesemia. 2. Chronic atrial fibrillation (rate controlled, not currently a candidate for anticoagulation due to recent GI bleed). 3. Hypertension. 4. Dyslipidemia. 5. History of alcohol use. 6. Forty pack year history of smoking. 7. Typical chest pain with negative troponin I. PLAN: 1. The patient is aware of his various metabolic derangements. 2. Likely etiology of this is chronic diuretic use (was on Lasix and metolazone) as well as recent GI bleed. 3. Continue Protonix 40 mg p.o. b.i.d. 4. Remain off of Lasix for the time being. 5. Discontinue metolazone. 6. Continue Spironolactone 50 mg b.i.d. 7. Continue potassium and magnesium supplementation convert to Slo-Mag as it is less likely to cause diarrhea. 8. Will place on a 1500 mL fluid restriction. 9. Closely monitor daily I&Os, body weights. 10. Consider beginning iron supplementation after being discharged from the hospital - Microcytic Hypochromic anemia. 11. Will continue to closely follow. [facility]
[2016-07-12 11:02] VITALS: BP 105/71; PULSE 70; TEMP 36.4; O2SAT 96
[2016-07-12 16:13] VITALS: BP 109/68; PULSE 57; TEMP 36.5; O2SAT 97
[2016-07-12 19:59] VITALS: BP 117/75; PULSE 74; TEMP 36.6; O2SAT 96
[2016-07-12 20:10] LABS: BUN/CREATININE RATIO 5.9 (10-20); CALCIUM 8.1 mg/dl (8.5-10.1); CREATININE 0.92 mg/dl (0.60-1.40); POTASSIUM 3.1 mmol/L (3.5-5.1)
[2016-07-12] MEDS: MAGNESIUM CHLORIDE 64MG DELAYED REL TAB PO SCH (20:53)
[2016-07-13 00:11] VITALS: BP 124/79; PULSE 74; TEMP 36.6; O2SAT 97
[2016-07-13 03:45] VITALS: BP 109/71; PULSE 64; TEMP 36.5; O2SAT 97
[2016-07-13 07:15] LABS: HEMATOCRIT 27.5 % (42-52); MEAN CELL VOLUME 80.4 fL (80-100); MEAN CORPUSCULAR HEMOGLOBIN 26.9 pg (25-34); MEAN CORPUSCULAR HGB CONC 33.5 g/dl (32-36); MEAN PLATELET VOLUME 9.2 fL (7.4-10.4); PLATELET COUNT 222 K/uL (130-400); RED BLOOD COUNT 3.42 M/uL (4.7-6.1); WHITE BLOOD COUNT 4.34 K/uL (4.8-10.8)
[2016-07-13 07:33] VITALS: BP 113/78; PULSE 69; TEMP 36.7; O2SAT 93
[2016-07-13 07:49] LABS: BUN/CREATININE RATIO 7.5 (10-20); CALCIUM 8.1 mg/dl (8.5-10.1); CREATININE 0.7 mg/dl (0.60-1.40); MAGNESIUM 2.1 mg/dl (1.8-2.4); POTASSIUM 2.6 mmol/L (3.5-5.1)
[2016-07-13] MEDS: IPRATROPIUM BROMIDE/ALBUTEROL respimat INH INH SCH ×4 (08:17→20:44)
[2016-07-13] MEDS: POTASSIUM CHLORIDE 20 MEQ TABCR PO SCH ×4 (08:18→20:45)
[2016-07-13] MEDS: MULTIVITAMIN TAB PO SCH (08:19)
[2016-07-13] MEDS: PANTOprazole SOD 40 MG TAB PO SCH ×2 (08:19→20:45)
[2016-07-13] MEDS: DILTIAZEM HCL (TIAzac) 180 MG CAPCR PO SCH (08:19)
[2016-07-13] MEDS: MAGNESIUM CHLORIDE 64MG DELAYED REL TAB PO SCH ×2 (08:20→20:45)
[2016-07-13] MEDS: SPIRONOLACTONE 25 MG TAB PO SCH ×2 (08:20→16:29)
[2016-07-13] MEDS: NICOTINE 21 MG/24 HR TDSY TD SCH (08:21)
[2016-07-13 12:08] VITALS: BP 110/71; PULSE 68; TEMP 36.6; O2SAT 100
[2016-07-13 12:52] LABS: BUN/CREATININE RATIO 6.2 (10-20); CALCIUM 8.4 mg/dl (8.5-10.1); CREATININE 0.87 mg/dl (0.60-1.40)
[2016-07-13 14:56] VITALS: BP 98/66; PULSE 45; TEMP 36.7; O2SAT 98
--- NOTE | 2016-07-13 15:50 | Progress Note ---
Subjective Date of Service: Jul 13, 2016. Subjective Pt evaluation today including: conversation w/ patient, physical exam, lab review, review of studies, review of inpatient medication list Pain: denies pain PO Intake: adequate, fluid restriction Voiding: no voiding problems patient has been dealing with edema as outpatient, no real response to Lasix and even the addition of metolazone presented with hyponatremia and hypokalemia patient has a significant drinking history, admits to 4 beers a day for many years up until April 2016 no known h/o cirrhosis although he had steatosis changes on recent CT abdomen h/o GI bleed, was seen by Dr. Roman his abdomen is clearly large, he says it has not always been that large Problem List Medical Problems: (1) Anemia Status: Acute (2) Anemia Status: Acute (3) Dyspnea on exertion Status: Acute (4) Hypokalemia Status: Acute (5) Hypomagnesemia Status: Acute (6) Hyponatremia Status: Acute (7) Left sided chest pain Status: Acute (8) Peripheral edema Status: Acute (9) Shortness of breath Status: Acute (10) Weakness Status: Acute Review of Systems Constitutional: + weakness, + fatigue Cardiac: + edema Abdomen: + problem reported (enlarged abdomen) All Other Systems: Reviewed and Negative Medications Current Inpatient Medications Medications (Trade) Dose Ordered Sig/Anali Route Start Time Stop Time Status Last Admin Dose Admin Zolpidem Tartrate (Ambien Tab) 5 mg HSZ PRN PO 07/11/16 23:15 08/10/16 23:14 Nitroglycerin (Nitrostat Tab) 0.4 mg UD PRN SL 07/11/16 23:15 08/10/16 23:14 Atenolol (Tenormin Tab) 100 mg BID PO 07/12/16 09:00 08/11/16 08:59 07/13/16 08:17 100 MG Diltiazem HCl (TIAzac CAP) 180 mg QAM PO 07/12/16 09:00 08/11/16 08:59 07/13/16 08:19 180 MG Folic Acid (Folvite Tab) 7 mg DAILY PO 07/12/16 09:00 08/11/16 08:59 07/13/16 08:18 7 MG Albuterol/ Ipratropium (Combivent Respimat Inh) 1 puffs QID INH 07/12/16 09:00 08/11/16 08:59 07/13/16 13:07 1 PUFFS Multivitamins (Multivitamin Tab) 1 tab QAM PO 07/12/16 09:00 08/11/16 08:59 07/13/16 08:19 1 TAB Nicotine (Nicoderm Cq 21MG Patch) 1 patch DAILY TD 07/12/16 09:00 08/11/16 08:59 07/13/16 08:21 1 PATCH Pantoprazole Sodium (Protonix Tab) 40 mg BID PO 07/12/16 09:00 08/11/16 08:59 07/13/16 08:19 40 MG Potassium Chloride (Klor-Con Tab) 40 meq QID PO 07/12/16 09:00 08/11/16 08:59 07/13/16 13:07 40 MEQ Miscellaneous (Remove Nicoderm Patch) 1 ea DAILY@2100 N/A 07/12/16 21:00 08/11/16 20:59 07/12/16 21:16 1 EA Spironolactone (Aldactone Tab) 50 mg BID17 PO 07/12/16 09:00 08/11/16 08:59 07/13/16 08:20 50 MG Magnesium Chloride (Slow-Mag Tab) 64 mg BID PO 07/12/16 21:00 08/11/16 20:59 07/13/16 08:20 64 MG Objective Vital Signs Date Time Temp Pulse Resp B/P (MAP) Pulse Ox O2 Delivery O2 Flow Rate FiO2 07/13/16 14:56 36.7 45 20 98/66 (77) 98 Room Air 07/13/16 12:24 Room Air 07/13/16 12:08 36.6 68 18 110/71 (84) 100 Room Air 07/13/16 08:00 Room Air 07/13/16 07:33 36.7 69 18 113/78 (90) 93 Room Air 07/13/16 04:00 Room Air 07/13/16 03:45 36.5 64 18 109/71 (84) 97 Room Air 07/13/16 00:11 36.6 74 18 124/79 (94) 97 Room Air 07/13/16 00:00 Room Air 07/12/16 20:45 Room Air 07/12/16 19:59 36.6 74 18 117/75 (89) 96 Room Air 07/12/16 16:13 36.5 57 18 109/68 (82) 97 Room Air 07/12/16 16:00 Room Air Physical Exam General Appearance: WD/WN, no apparent distress ENT: normal ENT inspection, hearing grossly normal, pharynx normal Neck: supple, no adenopathy, no JVD, trachea midline Respiratory/Chest: chest non-tender, lungs clear, normal breath sounds, no respiratory distress, no accessory muscle use Cardiovascular: regular rate, rhythm, no edema, no gallop, no JVD, no murmur Abdomen: normal bowel sounds, non tender, soft, no organomegaly, + distended, + pertinent finding (fluid wave appreciated on exam) Extremities: normal range of motion, non-tender, normal inspection, no calf tenderness, pelvis stable, + pedal edema (pitting, +2 bilaterally) 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: 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, no motor/sensory deficits, alert, normal mood/affect, oriented x 3 Skin: normal color, warm/dry, no rash Lymphatic: no adenopathy Laboratory Results Last 24 Hours Test 07/12/16 19:40 07/13/16 06:40 07/13/16 12:19 07/13/16 15:00 Sodium Level 126 mmol/L 129 mmol/L 130 mmol/L Potassium Level 3.1 mmol/L 2.6 mmol/L 3.0 mmol/L Chloride Level 78 mmol/L 82 mmol/L 86 mmol/L Carbon Dioxide Level 41 mmol/L 40 mmol/L 38 mmol/L Anion Gap 7.0 mmol/L 7.0 mmol/L 6.0 mmol/L Blood Urea Nitrogen 5 mg/dl 5 mg/dl 5 mg/dl Creatinine 0.92 mg/dl 0.70 mg/dl 0.87 mg/dl Est Creatinine Clear Calc Drug Dose 94.5 ml/min 122.1 ml/min 98.2 ml/min Estimated GFR () 100.1 114.0 104.2 Estimated GFR (Non- 86.4 98.3 89.9 BUN/Creatinine Ratio 5.9 7.5 6.2 Random Glucose 128 mg/dl 93 mg/dl 134 mg/dl Calcium Level 8.1 mg/dl 8.1 mg/dl 8.4 mg/dl Magnesium Level 2.0 mg/dl 2.1 mg/dl White Blood Count 4.34 K/uL Red Blood Count 3.42 M/uL Hemoglobin 9.2 g/dL Hematocrit 27.5 % Mean Corpuscular Volume 80.4 fL Mean Corpuscular Hemoglobin 26.9 pg Mean Corpuscular Hemoglobin Concent 33.5 g/dl RDW Standard Deviation 58.0 fL RDW Coefficient of Variation 19.6 % Platelet Count 222 K/uL Mean Platelet Volume 9.2 fL Urine Random Potassium 25.3 mEq/L Assessment and Plan 65 yo male presented with volume overload with hyponatremia, hypokalemia, not responding to Lasix and metolazone as outpatient - Volume overload, peripheral edema, suspected ascites: has a preserved EF and was being treated as diastolic heart failure suspect that edema could be related to liver, strong history of alcohol use/ abuse will check abdominal US, if there is ascites, would recommend requesting a diagnostic and therapeutic tap tomorrow would also consult Dr. Roman if there is ascites certainly Lasix and Spironolactone would be appropriate therapy in the setting of cirrhosis certainly renal failure and nephrotic syndrome could be on differential, Cr normal, will check UA, urine protein - Hyponatremia: due to volume overload, low serum osmolality at 248 with appropriately low urine osmolality Na up to 130, continue to follow - Hypokalemia: went down despite being on 40mEq PO QID? no hypertension so doubt hyperaldosteronism consult nephrology for their input check urine K Atrial fibrillation/hypertension--continue atenolol 100 mg by mouth twice a day , and diltiazem extended release 180 mg by mouth every morning. GERD/GI bleed history--continue pantoprazole 40 mg by mouth twice a day. Tobacco use disorder--continue NicoDerm CQ patch daily. Anemia of chronic disease--follow serial laboratories.
--- NOTE | 2016-07-13 18:36 | Nephrology Consultation ---
Nephrology Consultation Date & Providers Date of Consultation: Jul 13, 2016. Primary Care Provider: Erma Santos MD Referring Provider: Reason for Consultation Evaluation and management for hyponatremia, hypokalemia and metabolic alkalosis History of Present Illness Adam is a 65 y o M with PMH of HTN, CAD, diastolic CHF, A fib not on AC, chronic hyponatremia, chronic Anemia with positive FOBT but negative EGD, colonoscopy, enteroscopy admitted to hospital with critical electrolyte abnormality. Nephrology consult was requested for further evaluation and management. EMR was reviewed in detail during pt encounter. Adam has h/o chronic hyponatremia with low urine osm, multifactorial with chronic alcohol ingestion, high free water intake and HCTZ. Previously hyponatremia improved after HCTZ was stopped. W/U was otherwise unremarkable. Prior CXR, PSA, colonoscopy non revealing. He was on lasix to increase free water clearance and lE edema. Recently ( June 22 - ) was admitted to hospital with anemia Hb 7.2 , had 1 PRBC . W/U including EGD, colonoscopy ( in April 2016 ) , enteroscopy ( June 2016 ). Post hospital follow up lab yesterday showed electrolyte abnormality including Low K, Mg, Na and metabolic alkalosis. Urine osm continues to be low. He was clinically asymptomatic. Vitals signs were normal, no arrhythmia. He was on lasix and metolazone, pt was not sure when metolazone was started, now on hold. Has been on K, mg replacement and started on spironolactone and fluid restriction. Mg normalized, K and Na improving but still low. BP and volume status acceptable. He was on Eliquis for A fib, stopped since April due to anemia and positive FOBT. Has diastolic CHF and chronic venous stasis. H/O chronic alcohol ingestion , stopped for last 3 months as per pt. Allergies Coded Allergies: No Known Allergies (Verified , 07/11/16) Inpatient Medications Current Inpatient Medications Medications (Trade) Dose Ordered Sig/Anali Route Start Time Stop Time Status Last Admin Dose Admin Zolpidem Tartrate (Ambien Tab) 5 mg HSZ PRN PO 07/11/16 23:15 08/10/16 23:14 Nitroglycerin (Nitrostat Tab) 0.4 mg UD PRN SL 07/11/16 23:15 08/10/16 23:14 Atenolol (Tenormin Tab) 100 mg BID PO 07/12/16 09:00 08/11/16 08:59 07/13/16 08:17 100 MG Diltiazem HCl (TIAzac CAP) 180 mg QAM PO 07/12/16 09:00 08/11/16 08:59 07/13/16 08:19 180 MG Folic Acid (Folvite Tab) 7 mg DAILY PO 07/12/16 09:00 08/11/16 08:59 07/13/16 08:18 7 MG Albuterol/ Ipratropium (Combivent Respimat Inh) 1 puffs QID INH 07/12/16 09:00 08/11/16 08:59 07/13/16 13:07 1 PUFFS Multivitamins (Multivitamin Tab) 1 tab QAM PO 07/12/16 09:00 08/11/16 08:59 07/13/16 08:19 1 TAB Nicotine (Nicoderm Cq 21MG Patch) 1 patch DAILY TD 07/12/16 09:00 08/11/16 08:59 07/13/16 08:21 1 PATCH Pantoprazole Sodium (Protonix Tab) 40 mg BID PO 07/12/16 09:00 08/11/16 08:59 07/13/16 08:19 40 MG Potassium Chloride (Klor-Con Tab) 40 meq QID PO 07/12/16 09:00 08/11/16 08:59 07/13/16 13:07 40 MEQ Miscellaneous (Remove Nicoderm Patch) 1 ea DAILY@2100 N/A 07/12/16 21:00 08/11/16 20:59 07/12/16 21:16 1 EA Spironolactone (Aldactone Tab) 50 mg BID17 PO 07/12/16 09:00 08/11/16 08:59 07/13/16 08:20 50 MG Magnesium Chloride (Slow-Mag Tab) 64 mg BID PO 07/12/16 21:00 08/11/16 20:59 07/13/16 08:20 64 MG Family History Hypertension Social History Smoking Status: Former Smoker Smokeless Tobacco Use: No Alcohol Use: heavy Drug Use: none Marital Status: Housing Status: lives with family Occupation: retired Constitutional: no fatigue, weakness, chills, fever or night sweats Head neck: no visual changes, hearing loss Respiratory: No cough, dyspnea on exertion, shortness of breath, sputum or wheezing Cardiac: No chest pain or palpitation Abdomen: No anorexia, nausea, vomiting. No constipation or diarrhea, Musculoskeletal: No joint pain, muscle pain, back pain : No dysuria, hematuria, foamy urine, incontinence, No urinary frequency Endocrine: no polyuria, excessive thirst, heat or cold intolerance Hematological: no petechiae, easy bruising Neurologic: no confusion, weakness, No memory loss, No numbness/tingling, No paralysis, No vertigo Skin: no rash , Psychiatry: no anxiety, depression. Review of Systems A complete review of systems was performed. Pertinent positives are noted above. All other systems are negative. Physical Exam Date Time Temp Pulse Resp B/P (MAP) Pulse Ox O2 Delivery O2 Flow Rate FiO2 07/13/16 14:56 36.7 45 20 98/66 (77) 98 Room Air 07/13/16 12:24 Room Air 07/13/16 12:08 36.6 68 18 110/71 (84) 100 Room Air 07/13/16 08:00 Room Air 07/13/16 07:33 36.7 69 18 113/78 (90) 93 Room Air 07/13/16 04:00 Room Air 07/13/16 03:45 36.5 64 18 109/71 (84) 97 Room Air 07/13/16 00:11 36.6 74 18 124/79 (94) 97 Room Air 07/13/16 00:00 Room Air 07/12/16 20:45 Room Air 07/12/16 19:59 36.6 74 18 117/75 (89) 96 Room Air 07/12/16 16:13 36.5 57 18 109/68 (82) 97 Room Air 07/12/16 16:00 Room Air GENERAL: middle aged male, AAA x 3, pleasant, healthy-appearing, not in any distress. HEENT: Atraumatic, normocephalic. NECK: Supple, no JVD, no carotid bruit appreciated. ENT: No sinus tenderness MOUTH and THROAT: Moist oral mucosa, no oral ulcer or pharyngeal erythema RESPIRATORY: Normal breathing efforts, no accessory muscle use, clear to auscultation bilaterally, no wheezes or rales. CARDIOVASCULAR: S1, S2 normal, rate rhythm regular. ABDOMEN: obese, Soft, nontender, positive bowel sound. MUSCULOSKELETAL: No CVA tenderness. No joint swelling, erythema or tenderness. Normal range of motion. SKIN: No skin rash EXTREMITY: No lower extremity edema NEURO: No gross focal neurological deficit, speech fluent. PSYCHIATRY: Normal mood and judgment Laboratory Results Last 24 Hours Test 07/12/16 19:40 07/13/16 06:40 07/13/16 12:19 07/13/16 15:00 Sodium Level 126 mmol/L 129 mmol/L 130 mmol/L Potassium Level 3.1 mmol/L 2.6 mmol/L 3.0 mmol/L Chloride Level 78 mmol/L 82 mmol/L 86 mmol/L Carbon Dioxide Level 41 mmol/L 40 mmol/L 38 mmol/L Anion Gap 7.0 mmol/L 7.0 mmol/L 6.0 mmol/L Blood Urea Nitrogen 5 mg/dl 5 mg/dl 5 mg/dl Creatinine 0.92 mg/dl 0.70 mg/dl 0.87 mg/dl Est Creatinine Clear Calc Drug Dose 94.5 ml/min 122.1 ml/min 98.2 ml/min Estimated GFR () 100.1 114.0 104.2 Estimated GFR (Non- 86.4 98.3 89.9 BUN/Creatinine Ratio 5.9 7.5 6.2 Random Glucose 128 mg/dl 93 mg/dl 134 mg/dl Calcium Level 8.1 mg/dl 8.1 mg/dl 8.4 mg/dl Magnesium Level 2.0 mg/dl 2.1 mg/dl White Blood Count 4.34 K/uL Red Blood Count 3.42 M/uL Hemoglobin 9.2 g/dL Hematocrit 27.5 % Mean Corpuscular Volume 80.4 fL Mean Corpuscular Hemoglobin 26.9 pg Mean Corpuscular Hemoglobin Concent 33.5 g/dl RDW Standard Deviation 58.0 fL RDW Coefficient of Variation 19.6 % Platelet Count 222 K/uL Mean Platelet Volume 9.2 fL Urine Random Potassium 25.3 mEq/L Impression 65 y o male with critical electrolyte abnormality including critically low K, Na and mg as well as metabolic alkalosis which is consistent with effect from combination loop and thiazide diuretics. Has h/o chronic hyponatremia with low urine osm, multifactorial with chronic alcohol ingestion, high free water intake and HCTZ. Previously hyponatremia improved after HCTZ was stopped. W/U was otherwise unremarkable. Prior CXR, PSA, colonoscopy non revealing. He was on lasix to increase free water clearance and lE edema. Recently he was again started on metolazone which now on hold. Currently otherwise asymptomatic, electrolyte slightly imporved, K 3.0, Na 130 and mg 2.1, Bicarb improved to 38. BP, volume status acceptable. Has h/o HTN, CAD, A fib off of AC, diastolic CHF, chronic LE venous stasis and anemia with positive fOBT but negative EGD, colonoscopy, enteroscopy. Recommendations --discussed with pt about the importance of fluid restriction <1500 ml/d --change diet to regular diet and liberalize salt in diet --encourage high protein diet to increase free water clearance --avoid all thiazide diuretics including HCTZ, metolazone --continue spironolactone, once K normalize, lasix can be restarted --Expect K and Na to improve to an acceptable level soon --If Na still low ( < 132 ) with restart on salt tab 1 gm BID ( pt was on before ). -- hopefully electrolyte will be acceptable by tomorrow and can be discharged. Thank you for allowing me to participate in your patient's care. It was a pleasure to see Adam This chart was completed utilizing [employer] Speech and voice recognition software. Grammatical errors, random word insertions, pronoun errors and incomplete sentences are occasional consequences of this system. Any questions or concerns about the content, text or information contained within the body of this dictation should be addressed directly to the physician for clarification.
[2016-07-13 19:13] VITALS: BP 111/71; PULSE 62; TEMP 36.6; O2SAT 100
[2016-07-13 19:57] LABS: URINE APPEARANCE CLEAR (CLEAR); URINE BILIRUBIN NEG (NEG); URINE COLOR YELLOW; URINE NITRITE NEG (NEG); URINE PH >= 9.0 (4.5-7.5); URINE SPECIFIC GRAVITY 1.011 (1.000-1.030); UROBILINOGEN POS (NEG)
[2016-07-13 20:15] LABS: MANUAL MICROSCOPIC REQUIRED? NO; REVIEW REQ? NO
[2016-07-14 00:29] VITALS: BP 100/65; PULSE 65; TEMP 36.6; O2SAT 97
[2016-07-14 04:51] VITALS: BP 93/49; PULSE 73; TEMP 36.9; O2SAT 95
[2016-07-14 06:57] LABS: BUN/CREATININE RATIO 6.4 (10-20); CALCIUM 8.1 mg/dl (8.5-10.1); CREATININE 0.78 mg/dl (0.60-1.40); PHOSPHORUS 2.3 mg/dl (2.5-4.9); POTASSIUM 3.5 mmol/L (3.5-5.1)
--- NOTE | 2016-07-14 07:09 | DIAGNOSTIC IMAGING REPORT ---
ASCITES-ABDOMEN LIMITED CLINICAL HISTORY: Ascites assessment COMPARISON STUDY: Biliary ultrasound dated 09/14/2010 FINDINGS: A four-quadrant survey for ascites was performed. There is moderate ascites present. IMPRESSION: Moderate ascites is identified. Electronically signed by: Rolo Guillen M.D. 07/14/2016 7:08 AM Dictated Date/Time: 07/14/2016 7:07 AM
[2016-07-14 07:40] VITALS: BP 101/62; PULSE 77; TEMP 36.8; O2SAT 96
[2016-07-14] MEDS: MAGNESIUM CHLORIDE 64MG DELAYED REL TAB PO SCH (08:17)
[2016-07-14] MEDS: POTASSIUM CHLORIDE 20 MEQ TABCR PO SCH (08:17)
[2016-07-14] MEDS: PANTOprazole SOD 40 MG TAB PO SCH (08:18)
[2016-07-14] MEDS: MULTIVITAMIN TAB PO SCH (08:18)
[2016-07-14] MEDS: DILTIAZEM HCL (TIAzac) 180 MG CAPCR PO SCH (08:19)
[2016-07-14] MEDS: SPIRONOLACTONE 25 MG TAB PO SCH (08:19)
[2016-07-14] MEDS: NICOTINE 21 MG/24 HR TDSY TD SCH (08:20)
[2016-07-14] MEDS: IPRATROPIUM BROMIDE/ALBUTEROL respimat INH INH SCH (08:21)
--- NOTE | 2016-07-14 09:20 | Nephrology Progress Note ---
Nephrology Progress Note Date of Service Jul 14, 2016. Chief Complaint F/U for hyponatremia, hypokalemia and metabolic alkalosis Subjective Adam was seen and examined in his room this am. He has been otherwise doing well. Electrolyte abnormality improved. BP has been low but stable and asymptomatic. Abdominal USG showing moderate ascites. Review of Systems A complete review of systems was performed. Pertinent positives are noted above. All other systems are negative. Vital Signs Last 8 Hrs Date Time Temp Pulse Resp B/P (MAP) Pulse Ox O2 Delivery O2 Flow Rate FiO2 07/14/16 04:51 36.9 73 18 93/49 (64) 95 Room Air 07/14/16 04:30 Room Air 07/14/16 00:29 36.6 65 18 100/65 (77) 97 Room Air 07/14/16 00:00 Room Air Last Recorded Weight Weight (Kilograms): 109.100 Physical Exam General Appearance: no apparent distress Head: normocephalic, atraumatic Respiratory/Chest: lungs clear Cardiovascular: + pertinent finding (S1,S2 normal, Rhythm irregular) Back: + pertinent finding Abdomen/GI: normal bowel sounds, soft, + distended Neurologic/Psych: no motor/sensory deficits, alert, + pertinent finding ( speech fluent) Family History Hypertension Social History Smoking Status: Current every day smoker Smokeless Tobacco Use: No Alcohol Use: heavy Drug Use: none Marital Status: Housing Status: lives with family Occupation: retired Constitutional: no fatigue, weakness, chills, fever or night sweats Head neck: no visual changes, hearing loss Respiratory: No cough, dyspnea on exertion, shortness of breath, sputum or wheezing Cardiac: No chest pain or palpitation Abdomen: No anorexia, nausea, vomiting. No constipation or diarrhea, Musculoskeletal: No joint pain, muscle pain, back pain : No dysuria, hematuria, foamy urine, incontinence, No urinary frequency Endocrine: no polyuria, excessive thirst, heat or cold intolerance Hematological: no petechiae, easy bruising Neurologic: no confusion, weakness, No memory loss, No numbness/tingling, No paralysis, No vertigo Skin: no rash , Psychiatry: no anxiety, depression. Laboratory Results Past 24 Hours 07/13/16 12:19 Test 07/13/16 12:19 07/13/16 15:00 07/13/16 19:14 07/14/16 05:41 Anion Gap 6.0 mmol/L (3-11) Est Creatinine Clear Calc Drug Dose 98.2 ml/min Estimated GFR () 104.2 Estimated GFR (Non- 89.9 BUN/Creatinine Ratio 6.2 (10-20) Calcium Level 8.4 mg/dl (8.5-10.1) Urine Random Potassium 25.3 mEq/L 47.1 mEq/L Urine Color YELLOW Urine Appearance CLEAR (CLEAR) Urine pH >= 9.0 (4.5-7.5) Urine Specific [place] 1.011 (1.000-1.030) Urine Protein NEG (NEG) Urine Glucose (UA) NEG (NEG) Urine Ketones NEG (NEG) Urine Occult Blood NEG (NEG) Urine Nitrite NEG (NEG) Urine Bilirubin NEG (NEG) Urine Urobilinogen POS (NEG) Urine Leukocyte Esterase NEG (NEG) Urine Osmolality 331 mOms/kg (500-800) Urine Random Creatinine 100.0 mg/dl Urine Random Total Protein 11.1 mg/dl (0-11.9) Allergies Coded Allergies: No Known Allergies (Verified , 07/11/16) Medications Current Inpatient Medications Medications (Trade) Dose Ordered Sig/Anali Route Start Time Stop Time Status Last Admin Dose Admin Zolpidem Tartrate (Ambien Tab) 5 mg HSZ PRN PO 07/11/16 23:15 08/10/16 23:14 Nitroglycerin (Nitrostat Tab) 0.4 mg UD PRN SL 07/11/16 23:15 08/10/16 23:14 Atenolol (Tenormin Tab) 100 mg BID PO 07/12/16 09:00 08/11/16 08:59 07/13/16 20:45 100 MG Diltiazem HCl (TIAzac CAP) 180 mg QAM PO 07/12/16 09:00 08/11/16 08:59 07/13/16 08:19 180 MG Folic Acid (Folvite Tab) 7 mg DAILY PO 07/12/16 09:00 08/11/16 08:59 07/13/16 08:18 7 MG Albuterol/ Ipratropium (Combivent Respimat Inh) 1 puffs QID INH 07/12/16 09:00 08/11/16 08:59 07/13/16 20:44 1 PUFFS Multivitamins (Multivitamin Tab) 1 tab QAM PO 07/12/16 09:00 08/11/16 08:59 07/13/16 08:19 1 TAB Nicotine (Nicoderm Cq 21MG Patch) 1 patch DAILY TD 07/12/16 09:00 08/11/16 08:59 07/13/16 08:21 1 PATCH Pantoprazole Sodium (Protonix Tab) 40 mg BID PO 07/12/16 09:00 08/11/16 08:59 07/13/16 20:45 40 MG Potassium Chloride (Klor-Con Tab) 40 meq QID PO 07/12/16 09:00 08/11/16 08:59 07/13/16 20:45 40 MEQ Miscellaneous (Remove Nicoderm Patch) 1 ea DAILY@2100 N/A 07/12/16 21:00 08/11/16 20:59 07/13/16 20:44 1 EA Spironolactone (Aldactone Tab) 50 mg BID17 PO 07/12/16 09:00 08/11/16 08:59 07/13/16 16:29 50 MG Magnesium Chloride (Slow-Mag Tab) 64 mg BID PO 07/12/16 21:00 08/11/16 20:59 07/13/16 20:45 64 MG Impression 65 y o male with critical electrolyte abnormality including critically low K, Na and mg as well as metabolic alkalosis which is consistent with effect from combination loop and thiazide diuretics. Has h/o chronic hyponatremia with low urine osm, multifactorial with chronic alcohol ingestion, high free water intake and HCTZ. Previously hyponatremia improved after HCTZ was stopped. W/U was otherwise unremarkable. Prior CXR, PSA, colonoscopy non revealing. He was on lasix to increase free water clearance and lE edema. Recently he was again started on metolazone which now on hold. Currently otherwise asymptomatic, electrolyte slightly imporved, K 3.0, Na 130 and mg 2.1, Bicarb improved to 38. BP, volume status acceptable. Has h/o HTN, CAD, A fib off of AC, diastolic CHF, chronic LE venous stasis and anemia with positive fOBT but negative EGD, colonoscopy, enteroscopy. Recommendations --continue fluid restriction <1500 ml/d, mregular diet and liberalize salt in diet --encourage high protein diet to increase free water clearance --avoid all thiazide diuretics including HCTZ, metolazone --continue spironolactone --continue on KCL 40 meq /d on discharge --f/u lab 2/3 days after discharge This chart was completed utilizing [employer] Speech and voice recognition software. Grammatical errors, random word insertions, pronoun errors and incomplete sentences are occasional consequences of this system. Any questions or concerns about the content, text or information contained within the body of this dictation should be addressed directly to the physician for clarification.
--- NOTE | 2016-07-14 10:14 | Gastrointestinal Consultation ---
Gastrointestinal Consultation Date of Consultation: Jul 14, 2016 Attending Physician: Dr. Rankin Consulting Physician: Dr. Roman/KATIANA Reese Reason for Consultation: Ascites History of Present Illness Patient is a 65 year old male with a history of alcohol abuse and anemia with heme positive stool seen and evaluated by Dr. Roman and myself on several hospital admissions since April of this year for work up of anemia. He has undergone an EGD, colonoscopy and push enteroscopy without a clear etiology to the bleeding. Most recently, however, he has been admitted with hypokalemia and hyponatremia as well as metabolic alkalosis in the setting of diuretic use. Nephrology has been consulted and recommendations have been made to replete electrolytes and restrict fluid intake. While hospitalized, the patient has been reporting increased abdominal distention and ultrasound imaging was performed yesterday in this regard with moderate ascites noted. Most recent electrolytes are as follows: sodium 132, potassium 3.5, chloride 90, carbon dioxide 36, BUN 5 and creatinine 0.78. Liver panel on admission was as follows: total bilirubin 1.7, direct bilirubin 0.7, AST 36, ALT 16, ALP 116 and albumin 2.9. Currently, the patient denies any abdominal pain, nausea or vomiting, fever/ chills or fatigue. Improved lower extremity edema. He has no other complaints at present. States he has not had any alcoholic beer since April of 2016 and has been only drinking NA beer since that time. States he needs to be discharged today as he "has very important business" that needs to be addressed today. Past Medical/Surgical History Medical Problems: (1) Anemia Status: Acute (2) Anemia Status: Acute (3) Dyspnea on exertion Status: Acute (4) Hypokalemia Status: Acute (5) Hypomagnesemia Status: Acute (6) Hyponatremia Status: Acute (7) Left sided chest pain Status: Acute (8) Peripheral edema Status: Acute (9) Shortness of breath Status: Acute (10) Weakness Status: Acute Past Medical History: 1. Atrial fibrillation 2. Hypertension 3. Hypercholesterolemia 4. Chronic alcohol and tobacco use 5. Gastric erosion 6. Diverticulosis 7. Rectal polyp 8. Anemia Past Surgical History: 1. EGD 2. Complete colonoscopy Family History Hypertension Negative for GI malignancy or IBD Social History Smoking Status: Former Smoker Alcohol Use: other (see above) Drug Use: none Marital Status: Occupation Status: retired Allergies Coded Allergies: No Known Allergies (Verified , 07/11/16) Current Medications Home Meds and Scripts Medications Dose Route/Sig Max Daily Dose Days Date Category Dose Instructions Metolazone 5 Mg Tab 0.5 Tab PO DAILY 07/11/16 Reported Pantoprazole Sodium (Pantoprazole) 40 Mg Tab 40 Mg PO BID 30 06/23/16 Rx Klor-Con (Potassium Chloride) 20 Meq Tabcr 2 Tab PO BID 06/20/16 Reported Combivent Respimat (Ipratropium-Albuterol) 1 Aer Aer 1 Puffs INH QID 06/20/16 Reported Lasix (Furosemide) 40 Mg Tab 40 Mg PO BID 06/20/16 Reported Nicoderm Cq (Nicotine) 21 Mg/24 Hr Dis 1 Patch TOP DAILY 06/20/16 Reported PRN Folic Acid 1 Mg Tab 7 Mg PO DAILY 05/08/16 Reported Tiazac (Diltiazem HCl) 180 Mg Capcr 180 Mg PO QAM 05/02/16 Reported Multivitamin (Multivitamins) Tab 1 Tab PO QAM 05/02/16 Reported Tenormin (Atenolol) 100 Mg Tab 100 Mg PO BID 04/23/16 Reported Review of Systems See HPI for pertinent positives & negatives. A total of 10 systems reviewed and were otherwise negative. Physical Exam Date Time Temp Pulse Resp B/P (MAP) Pulse Ox O2 Delivery O2 Flow Rate FiO2 07/14/16 07:40 36.8 77 18 101/62 (75) 96 07/14/16 04:51 36.9 73 18 93/49 (64) 95 Room Air 07/14/16 04:30 Room Air 07/14/16 00:29 36.6 65 18 100/65 (77) 97 Room Air 07/14/16 00:00 Room Air 07/13/16 20:00 Room Air 07/13/16 19:13 36.6 62 18 111/71 (84) 100 Room Air 07/13/16 16:22 Room Air 07/13/16 16:19 Room Air 07/13/16 14:56 36.7 45 20 98/66 (77) 98 Room Air 07/13/16 12:24 Room Air 07/13/16 12:08 36.6 68 18 110/71 (84) 100 Room Air General Appearance: no apparent distress Eyes: EOMI ENT: hearing grossly normal Neck: supple Respiratory/Chest: no respiratory distress, + decreased breath sounds Cardiovascular: no murmur, + irregularly irregular Abdomen: normal bowel sounds, non tender, + distended Extremities: no pedal edema Skin: warm/dry Laboratory Results Last 24 Hours Test 07/13/16 12:19 07/13/16 15:00 07/13/16 19:14 07/14/16 05:41 Sodium Level 130 mmol/L 132 mmol/L Potassium Level 3.0 mmol/L 3.5 mmol/L Chloride Level 86 mmol/L 90 mmol/L Carbon Dioxide Level 38 mmol/L 36 mmol/L Anion Gap 6.0 mmol/L 6.0 mmol/L Blood Urea Nitrogen 5 mg/dl 5 mg/dl Creatinine 0.87 mg/dl 0.78 mg/dl Est Creatinine Clear Calc Drug Dose 98.2 ml/min 109.8 ml/min Estimated GFR () 104.2 109.0 Estimated GFR (Non- 89.9 94.1 BUN/Creatinine Ratio 6.2 6.4 Random Glucose 134 mg/dl 90 mg/dl Calcium Level 8.4 mg/dl 8.1 mg/dl Urine Random Potassium 25.3 mEq/L 47.1 mEq/L Urine Color YELLOW Urine Appearance CLEAR Urine pH >= 9.0 Urine Specific [place] 1.011 Urine Protein NEG Urine Glucose (UA) NEG Urine Ketones NEG Urine Occult Blood NEG Urine Nitrite NEG Urine Bilirubin NEG Urine Urobilinogen POS Urine Leukocyte Esterase NEG Urine Osmolality 331 mOms/kg Urine Random Creatinine 100.0 mg/dl Urine Random Total Protein 11.1 mg/dl Osmolality 265 mOsm/kg Phosphorus Level 2.3 mg/dl Albumin 2.4 gm/dl Impression Patient is a 65 year old male with a history of prior alcohol abuse as well as chronic atrial fibrillation admitted with hypokalemia, hyponatremia and metabolic alkalosis as well as new onset of ascites. Plan 1. Recommend diagnostic and therapeutic paracentesis with fluid studies. Patient refuses stating he needs to be discharged today and will not consent to any additional testing which would delay his discharge. 2. Continue fluid restriction as recommendations per Dr. Balderas in regard to diuretic use. 3. Recommend alcohol abstinence. Patient is not interested in any inpatient/ outpatient alcohol treatment programs. 4. Continue supportive care per primary team. Agree with KATIANA Reese as above Patient was discharged prior to my evaluation.
[2016-07-14] MEDS ORDERED: SPR25 PO (10:45)
--- NOTE | 2016-07-14 10:50 | Discharge Instructions ---
Discharge Instructions Date of Service Jul 14, 2016. Admission Reason for Admission: Hypokalemia, Hyponatremia Discharge Discharge Diagnosis / Problem: hypokalemia, hyponatremia Discharge Goals Goal(s): Therapeutic intervention Activity Recommendations Activity Limitations: resume your previous activity . Instructions / Follow-Up Instructions / Follow-Up You hospital for abnormalities in your lab work. Your potassium and sodium were found to be very low. It is very important for you to take your medications as prescribed Please restrict your fluid intake to 1500 mL (6 cups) per day The following changes/additions have been made to your medication list: -PLEASE STOP LASIX AND METOLAZONE -Continue potassium 2 tabs twice daily as prescribed -Begin spironolactone 50 mg twice daily Please have repeat blood work in 2 days Please follow-up with your primary care physician as scheduled Please also follow up with the GI doctor as scheduled Call your doctor or return to the emergency department if you have any of the following symptoms: -Fever of 101F or greater -Persistent vomiting - Persistent diarrhea -Lethargy -Chest pain -Shortness of breath -severe dizziness -weakness on one side of your body Current Hospital Diet Patient's current hospital diet: Regular Diet Discharge Diet Recommended Diet: Regular Diet Fluid Restriction: 1500 ml (6 cups) Pending Studies Studies pending at discharge: no Medical Emergencies . Who to Call and When: Medical Emergencies: If at any time you feel your situation is an emergency, please call 911 immediately. . Non-Emergent Contact Non-Emergency issues call your: Primary Care Provider . . "Provider Documentation" section prepared by Juli Garcias. . VTE Core Measure Inpt VTE Proph given/why not?: Divine Mclean, [facility]
--- NOTE | 2016-07-14 11:06 | Discharge Summary ---
Discharge Summary Date of Service Jul 14, 2016. Discharge Summary Admission Date: Jul 11, 2016 at 22:24 Discharge Date: Jul 14, 2016 Discharge Disposition: Home Principal Diagnosis: hypokalemia, hyponatremia Problems/Secondary Diagnoses: Ascites Chronic alcohol use Alcoholic liver disease Hypertension A. fib History of GI bleed Immunizations: Have You Had Influenza Vaccine: N/A History of Tetanus Vaccine?: 4-5 YEARS AGO History of Pneumococcal: Yes History of Hepatitis B Vaccine: No Consultations: Nephrology GI Medication Reconciliation New Medications: Spironolactone (Spironolactone) 25 Mg Tab 50 MG PO BID17 for 30 Days, #60 TAB Continued Medications: Atenolol (Tenormin) 100 Mg Tab 100 MG PO BID, #60 Diltiazem Hcl Ext Rel (Tiazac) 180 Mg Capcr 180 MG PO QAM, CAP Folic Acid (Folic Acid) 1 Mg Tab 7 MG PO DAILY, #210 Ipratropium-Albuterol (Combivent Respimat) 1 Aer Aer 1 PUFFS INH QID, INH Multivitamin (Multivitamin) Tab 1 TAB PO QAM, TAB Nicotine (Nicoderm Cq) 21 Mg/24 Hr Dis 1 PATCH TOP DAILY, PATCH PRN Pantoprazole (Pantoprazole Sodium) 40 Mg Tab 40 MG PO BID for 30 Days, #60 TAB Potassium Ext Rel (Klor-Con) 20 Meq Tabcr 2 TAB PO BID, TAB Discontinued Medications: Furosemide (Lasix) 40 Mg Tab 40 MG PO BID, TAB Metolazone (Metolazone) 5 Mg Tab 0.5 TAB PO DAILY Referrals At Discharge Follow up Referrals: Oral And Maxillofacial Surgery Referral - Within 1-2 Weeks with Cameron Roman D.O. Physician Referral - Within 1 Week with Erma Santos MD Discharge Exam Patient currently has no complaints. Patient denies any chest pain or pressure. No shortness of breath. He denies any abdominal discomfort or distention. He feels that his abdomen has decreased in size. He reports regular bowel movements. Review of Systems: Constitutional: No fever, No chills Respiratory: No cough, No shortness of breath Cardiovascular: No chest pain Abdomen: No pain, No nausea Neurologic: No weakness Physical Exam: General Appearance: no apparent distress Eyes: EOMI Neck: no JVD Respiratory/Chest: lungs clear Cardiovascular: + irregularly irregular Abdomen / GI: non tender, soft, + pertinent finding (mildly distended with ascites) Extremities: + pertinent finding (trace pitting edema LE bilaterally) 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: no motor/sensory deficits, oriented x 3 Skin: warm/dry Hospital Course 65 yo male presented with volume overload with hyponatremia, hypokalemia, not responding to Lasix and metolazone as outpatient - Volume overload, peripheral edema, suspected ascites: has a preserved EF and was being treated as diastolic heart failure Lasix and metalozone as outpt changed to spironolactone 50 mg po BID-->Rx given upon d/c abdominal US confirms ascites likely secondary to alcoholic liver disease GI consult done. Pt refused inpt paracentesis. Will f/u with GI as outpt - Hyponatremia: due to volume overload, low serum osmolality at 248 with appropriately low urine osmolality-Na up to 133 upon d/c Nephrology consult-->continue to fluid restrict at 1500 mL daily. No Lasix or metolazone upon d/c repeat labs in 2 days - Hypokalemia: KCl 40 po BID as an outpt increased to QID here Resume home dose upon d/c (given spirolactone) -Atrial fibrillation/hypertension continue atenolol 100 mg by mouth twice a day, and diltiazem extended release 180 mg by mouth every morning. not on AC d/t GI bleed -GERD/GI bleed history continue pantoprazole 40 mg by mouth twice a day. -Tobacco use disorder- continue NicoDerm CQ patch daily. -Anemia of chronic disease-stable Total Time Spent: Greater than 30 minutes This includes examination of the patient, discharge planning, medication reconciliation, and communication with other providers. Discharge Instructions Please refer to the electronic Patient Visit Report (Discharge Instructions) for additional information. Follow-Up PCP 1 week GI 1-2 weeks Additional Copies To Cameron Roman D.O.; Carol Balderas MD; Erma Santos MD
[2016-07-14 11:30] VITALS: BP 101/62; PULSE 77; TEMP 36.8; O2SAT 96
[2016-07-14 11:41] VITALS: BP 96/62; PULSE 71; TEMP 37; O2SAT 96
[2016-08-19] MEDS ORDERED: FLV1 PO (11:56)
[2016-08-19] MEDS ORDERED: ATEN100T PO (13:52)
[2016-08-22] MEDS ORDERED: PANT40TA2 PO (16:15)
[2016-12-24] MEDS ORDERED: FRS/40 PO (11:48)
[2016-12-24] MEDS ORDERED: MULT-506 PO (11:48)
== END 2016-07-14 12:24 | disposition home or self-care (01) | DRG 641 ==
LOC: C.EDB 17:52 → C.2T 22:24 → ENRESERV 22:43
PROVIDERS: ADMIT Hospitalist; ATTEND Hospitalist
DX: E87.6 Hypokalemia (principal); R18.8 Other ascites; F10.288 Alcohol dependence with other alcohol-induced disorder; E87.1 Hypo-osmolality and hyponatremia; K70.9 Alcoholic liver disease, unspecified; I10 Essential (primary) hypertension; E87.70 Fluid overload, unspecified; K21.9 Gastro-esophageal reflux disease without esophagitis; F17.200 Nicotine dependence, unspecified, uncomplicated; D63.8 Anemia in other chronic diseases classified elsewhere

== ENCOUNTER → 2016-07-11 | Outpatient (CLI) | payer BC ==
[2016-07-11 17:08] LABS: BLOOD UREA NITROGEN 6 mg/dl (7-18); BUN/CREATININE RATIO 7.1 (10-20); CALCIUM 7.9 mg/dl (8.5-10.1); CARBON DIOXIDE 39 mmol/L (21-32); CHLORIDE 71 mmol/L (98-107); CREATININE 0.85 mg/dl (0.60-1.40); GLUCOSE 144 mg/dl (70-99); POTASSIUM 2.1 mmol/L (3.5-5.1); SODIUM 123 mmol/L (136-145)
== END | disposition home or self-care (01) ==
LOC: C.LABBFT 12:11
PROVIDERS: ATTEND Family Medicine
DX: E87.1 Hypo-osmolality and hyponatremia (principal); E87.6 Hypokalemia

== ENCOUNTER → 2016-07-17 | Outpatient (CLI) | payer BC ==
[~2016-07-17] MED LIST changes: +ATEN100T PO; +FLV1 PO; +IPRA1AER2 INH; +PANT40TA2 PO; +POTA-65 PO; +SODI1TAB PO; +SPR25 PO
[2016-07-17 17:34] LABS: BLOOD UREA NITROGEN 8 mg/dl (7-18); BUN/CREATININE RATIO 9.2 (10-20); CALCIUM 8.4 mg/dl (8.5-10.1); CARBON DIOXIDE 27 mmol/L (21-32); CHLORIDE 94 mmol/L (98-107); CREATININE 0.82 mg/dl (0.60-1.40); GLUCOSE 93 mg/dl (70-99); MAGNESIUM 1.9 mg/dl (1.8-2.4); POTASSIUM 4.8 mmol/L (3.5-5.1); SODIUM 129 mmol/L (136-145)
== END | disposition home or self-care (01) ==
LOC: C.LABBFT 11:25
PROVIDERS: ATTEND Physician Assistant Medical
DX: E87.1 Hypo-osmolality and hyponatremia (principal)

== ENCOUNTER → 2016-07-24 | Outpatient (CLI) | payer BC ==
[2016-07-24 17:30] LABS: BASO % 0.6 %; BASO ABS # 0.03 K/uL (0-0.2); EOS % 1.4 %; HEMATOCRIT 27.5 % (42-52); IG% 0.2 %; LYMPH % 19.7 %; LYMPH ABS # 0.98 K/uL (1.2-3.4); MEAN CELL VOLUME 80.2 fL (80-100); MEAN CORPUSCULAR HEMOGLOBIN 26.2 pg (25-34); MEAN CORPUSCULAR HGB CONC 32.7 g/dl (32-36); MEAN PLATELET VOLUME 9.1 fL (7.4-10.4); MONO % 14.9 %; NEUT % 63.2 %; PLATELET COUNT 246 K/uL (130-400); RED BLOOD COUNT 3.43 M/uL (4.7-6.1); WHITE BLOOD COUNT 4.98 K/uL (4.8-10.8)
[2016-07-24 17:35] LABS: INR 1.1 (0.9-1.1); PROTHROMBIN TIME (PATIENT) 12.3 SECONDS (9.0-12.0)
[2016-07-24 17:54] LABS: ACANTHOCYTES 1+; ALT/SGPT 17 U/L (12-78); ANISOCYTOSIS PRESENT; AST/SGOT 22 U/L (15-37); BLOOD UREA NITROGEN 10 mg/dl (7-18); BUN/CREATININE RATIO 9.8 (10-20); CALCIUM 8.9 mg/dl (8.5-10.1); CARBON DIOXIDE 21 mmol/L (21-32); CHLORIDE 100 mmol/L (98-107); COMPLETE YES; ECHINOCYTES 2+; GLUCOSE 103 mg/dl (70-99); POTASSIUM 5.3 mmol/L (3.5-5.1); SODIUM 131 mmol/L (136-145)
[2016-07-24 17:56] LABS: ALB/GLOB RATIO 0.7 (0.9-2); ALKALINE PHOSPHATASE 108 U/L (45-117)
== END | disposition home or self-care (01) ==
LOC: C.LABBFT 12:17
PROVIDERS: ATTEND Nurse Practitioner Family
DX: E87.1 Hypo-osmolality and hyponatremia (principal); E87.6 Hypokalemia; R18.8 Other ascites; F10.20 Alcohol dependence, uncomplicated

== ENCOUNTER → 2016-07-24 | Outpatient (CLI) | payer BC ==
--- NOTE | 2016-07-24 08:14 | DIAGNOSTIC IMAGING REPORT ---
LIMITED ABDOMINAL ULTRASOUND FOR ASCITES EVALUATION CLINICAL HISTORY: R18.8 Ascites COMPARISON STUDY: 07/14/2016 FINDINGS: There is moderate ascites present, slightly diminished in volume when compared the prior study. IMPRESSION: Moderate ascites, slightly diminished in volume when compared the prior study dated 07/14/2016 Electronically signed by: Rolo Guillen M.D. 07/24/2016 8:13 AM Dictated Date/Time: 07/24/2016 8:12 AM
== END | disposition home or self-care (01) ==
LOC: C.ULTR 07:41
PROVIDERS: ATTEND Nurse Practitioner Family
DX: R18.8 Other ascites (principal)

== ENCOUNTER → 2016-07-29 | Outpatient (CLI) | payer BC | END | disposition home or self-care (01) | LOC: C.LABBFT 10:43 | PROVIDERS: ATTEND Nurse Practitioner Family | DX: E78.5 Hyperlipidemia, unspecified (principal) ==

== ENCOUNTER → 2016-08-18 | Day surgery (SDC) | payer BC, OTHER ==
[~2016-08-18] VITALS: Ht 170.2 cm; Wt 104.0 kg
[~2016-08-18] MED LIST changes: +ALBUMIN HUMAN 25% 12.5 GM/50 ML VIAL IV PRN; +ALBUMIN HUMAN 25% 12.5 GM/50 ML VIAL IV SCH; -FRS/40 PO; -PANT40TA2 PO; +PRT/40 PO
[2016-08-18 08:29] VITALS: BP 120/73; PULSE 94; TEMP 36.4; O2SAT 99; Ht 170.2 cm; Wt 104.0 kg
[2016-08-18 09:23] LABS: PLATELET COUNT 231 K/uL (130-400)
[2016-08-18 09:37] LABS: INR 1.2 (0.9-1.1); PROTHROMBIN TIME (PATIENT) 12.8 SECONDS (9.0-12.0)
--- NOTE | 2016-08-18 12:02 | Discharge Instructions ---
Discharge Instructions Procedure Procedure Date: Aug 18, 2016. Reason for visit: Ascites. Discharge Discharge Date: Aug 18, 2016. Discharge Diagnosis: s/p paracentesis Instructions Activity Recommendations: 1 Day-May resume regular activity Return to School/Work: no limitations Recommended Home Diet: No Limitations Provider Instructions: ACTIVITY RECOMMENDATIONS: * Rest today. * Resume regular activity in one day. MEDICATIONS: * May take Tylenol or Ibuprofen as needed for pain. DIET: * Resume previous diet. SPECIAL CARE INSTRUCTIONS: Call your doctor if: * Temperature above 101 degrees F. * Pain not relieved by pain medicine ordered. * Increased drainage or redness from incision. * Notify your doctor with any questions or concerns. Call your doctor or go to the nearest Emergency Department if you experience: * Increased chest pain or shortness of breath. FOLLOW UP VISIT: Follow-up with Referring Physician as scheduled. Allergies Coded Allergies: No Known Allergies (Verified , 08/18/16) Haroldo Jones Recommendations: Call your doctor if: * Temperature above 101 degrees * Pain not relieved by pain medicine ordered * There is increased drainage or redness from any incision * You have any unanswered questions or concerns. Your Doctors Instructions noted above were prepared by provider Monster James. Patient Signature Section: Patient Instructions Signature Page Santos Zarco Patient (or Guardian) Signature/Date: I have read and understand the instructions given to me by my caregivers. Caregiver/RN/Doctor Signature/Date: The above-named patient and/or guardian has received patient instructions on this date. + Original Patient Signature Page (only) stays with chart. Please make copy for patient.
[2016-08-18 12:15] VITALS: BP 111/69; PULSE 84; TEMP 37; O2SAT 98
--- NOTE | 2016-08-18 12:25 | DIAGNOSTIC IMAGING REPORT ---
ULTRASOUND GUIDED THERAPEUTIC PARACENTESIS CLINICAL HISTORY: Ascites. COMPARISON STUDY: Ascites ultrasound July 24, 2016. PROCEDURE: The risks, benefits, and alternatives to the procedure were discussed with the patient including the risk of bleeding, infection and injury to adjacent structures. The patient agreed to the procedure and informed written consent was obtained. Following real-time ultrasound localization, the skin of the left lower quadrant was prepped and draped. Following local anesthesia with Xylocaine, the sheath paracentesis needle was inserted and approximately 3.8 liters of straw-colored fluid was removed by vacuum suction. The patient tolerated the procedure well and no immediate complications were evident. IMPRESSION: Ultrasound-guided paracentesis with removal of 3.8 liters of ascites. 1 L of ascites was sent to laboratory for analysis as ordered. Electronically signed by: Monster James M.D. 08/18/2016 12:24 PM Dictated Date/Time: 08/18/2016 12:23 PM
[2016-08-18 12:30] VITALS: BP 108/78; PULSE 89; TEMP 36.9; O2SAT 98
[2016-08-18 13:00] VITALS: BP 127/74; PULSE 87; TEMP 36.3; O2SAT 98
[2016-08-18 14:17] LABS: PERIT FL WBC 378 /uL (0-300); PERITONEAL FLUID RBC < 3000 /uL
== END | disposition home or self-care (01) ==
LOC: C.ACU 07:53
PROVIDERS: ATTEND Registered Nurse
DX: R18.8 Other ascites (principal)

== ENCOUNTER 2016-08-19 14:30 | Emergency (ER) | payer BC, OTHER ==
[~2016-08-19] VITALS: Ht 170.2 cm; Wt 90.9 kg
[~2016-08-19 14:30] MED LIST changes: -ALBUMIN HUMAN 25% 12.5 GM/50 ML VIAL IV PRN; -ALBUMIN HUMAN 25% 12.5 GM/50 ML VIAL IV SCH; -DILT-113 PO; -IPRA1AER2 INH; -POTA-65 PO; -PRT/40 PO; -PRT40 PO; -SODI1TAB PO; -SPR25 PO
[2016-08-19 14:41] VITALS: TEMP 36.5; Ht 170.2 cm; Wt 90.9 kg
[2016-08-19] MEDS ORDERED: POTA-65 PO (15:10)
[2016-08-19] MEDS ORDERED: SODI1TAB PO (15:10)
[2016-08-19] MEDS ORDERED: IPRA1AER2 INH (15:54)
[2016-08-19 16:17] VITALS: BP 115/71; PULSE 96; O2SAT 98
--- NOTE | 2016-08-19 18:21 | EMERGENCY ROOM VISIT NOTE ---
History Report prepared by Nick: Luke Gooden Under the Supervision of: Dr. Fadi Hanna D.O. First contact with patient: 15:04 Chief Complaint: OTHER COMPLAINT Stated Complaint: PATIENT STATES HE NEEDS HIS STOMACH DRAINED History of Present Illness The patient is a 65 year old male who presents to the Emergency Room with complaints of persistent abdominal wound leakage beginning yesterday. He states that he had a fluid drain removed from his left lower abdomen yesterday and the area has been leaking ever since. He states that the had the drain in place to drain excess fluid from his abdomen. The patient states that this was the first time he has had a drain in place. He is unsure as to the cause of his ascites, but notes that he used to drink a lot of alcohol when he was younger. Pt denies headache, change in vision, fevers, chest pain, abdominal pain, shortness of breath, nausea, vomiting, diarrhea, and pain with urination. Source of History: patient Onset: Yesterday Position: abdomen (left lower) Quality: other (leakage) Timing: other (persistent) Associated Symptoms: No fevers, No chest pain, No SOB, No nausea, No vomiting, No abdominal pain, No diarrhea, No urinary symptoms Review of Systems See HPI for pertinent positives & negatives. A total of 10 systems reviewed and were otherwise negative. Past Medical & Surgical Medical Problems: (1) Atrial Fibrillation (2) Cellulitis of leg (3) Chest pain (4) CHF exacerbation (5) COPD exacerbation (6) GI bleed (7) Hypertension Nos (8) Pure Hypercholesterolem (9) Tobacco Use Disorder Family History Hypertension Social History Smoking Status: Current Some Day Smoker Alcohol Use: other Drug Use: none Marital Status: Occupation Status: retired Current/Historical Medications Scheduled Atenolol (Tenormin), 100 MG PO BID Folic Acid (Folic Acid), 7 MG PO DAILY Ipratropium-Albuterol (Combivent Respimat), 2 PUFFS INH QID Potassium Chloride (Potassium Chloride ER), 40 MEQ PO DAILY Sodium Chloride (Sodium Chloride), 1 GM PO BID Allergies Coded Allergies: No Known Allergies (Verified , 08/18/16) Physical Exam Vital Signs Date Time Temp Pulse Resp B/P (MAP) Pulse Ox O2 Delivery O2 Flow Rate FiO2 08/19/16 16:17 96 16 115/71 98 08/19/16 14:41 36.5 86 20 104/76 100 Room Air Physical Exam GENERAL: Obese, sitting up in bed, no distress, nontoxic EYE EXAM: normal conjunctiva. OROPHARYNX: no exudate, no erythema, lips, buccal mucosa, and tongue normal and mucous membranes are moist LUNGS: Normal chest wall mechanics. Diffuse wheezing bilaterally. HEART: no murmurs, S1 normal and S2 normal ABDOMEN: abdomen soft, non-tender, normo-active bowel sounds, no masses, no rebound or guarding. Small puncture site on the left mid-abdomen which is no longer leaking. No active drainage. No surrounding erythema. UPPER EXTREMITIES: upper extremities are grossly normal. LOWER EXTREMITIES: No pitting edema. NEURO EXAM: Normal sensorium, cranial nerves II-XII grossly intact, normal speech, no gross weakness of arms, no gross weakness of legs. Medical Decision & Procedures ED Course ED COURSE: Vital signs were reviewed and appeared normal The patients medical record was reviewed The above diagnostic studies were performed and reviewed. ED treatments and interventions as stated above. 1504: The patient was evaluated in room A9B. A complete history and physical examination was performed. 1622: Upon reevaluation, the patient is resting comfortably. He has had no further leakage from his abdomen. I discussed my findings with the patient and he understands and agrees with the treatment plan. Based on the patients age, coexisting illnesses, exam and lab findings the decision to treat as an outpatient was made. The patient remained stable while under my care. The patient appeared well at the time of discharge. Medical Decision Differential diagnoses includes but is not limited to gastritis, peptic ulcer disease, GERD, gallbladder disease, pancreatitis, small bowel obstruction, acute coronary syndrome, pericarditis, ischemic bowel, irritable bowel disease, irritable bowel syndrome, appendicitis, diverticulitis, malignancy, hernia, urinary tract infection, torsion, perforation, trauma, infectious. Blood pressure screening: Patient was found to have normal blood pressure on screening and does not require follow-up. Medication Reconciliation: I attest that I have personally reviewed the patient' s current medication list. Patient is a 65-year-old male who presents the ER following having a paracentesis done yesterday by Dr. James and having continued drainage from the site. There is no surrounding erythema. Prior to my evaluation nursing had held pressure and drainage had stopped. My evaluation is otherwise well- appearing. He has no complaints. No signs of infection. Patient remained on his right side down without leakage. He was observed for 2 hours and was discharged. I did discuss the case with radiology and they agreed with the treatment. 4 x 4 and Tegaderm was left to be removed in 24 hours. Discussed with Pt concerning signs and symptoms to watch out for. Pt was instructed to follow up with their PCP and discussed with the patient their option to return to the ED at anytime for persistent or worsening symptoms. The appropriate anticipatory guidance and out-patient management, including indications for return to the emergency department, were explained at length to the patient and understood. Consults Time Called: 1514 Consulting Physician: Dr. Guillen -Radiology Returned Call: 1514 I reviewed the patient's case with Dr. Guillen. He recommends that the patient lay with the draining wound face up for 1 hour. Impression Primary Impression: Ascites Additional Impression: Paracentesis leakage Scribe Attestation The scribe's documentation has been prepared under my direction and personally reviewed by me in its entirety. I confirm that the note above accurately reflects all work, treatment, procedures, and medical decision making performed by me. Departure Information Dispostion Home / Self-Care Referrals Erma Santos MD (PCP) Forms HOME CARE DOCUMENTATION FORM, IMPORTANT VISIT INFORMATION, WORK / SCHOOL INSTRUCTIONS Patient Instructions My [facility], Paracentesis Dc Additional Instructions Please follow up with your primary care doctor with in the next 24 hours. Any worsening of your symptoms, please return to the ED immediately. This includes continued leakage of fluid, abdominal pain, fevers greater than 100.4, or any other concerning signs or symptoms from your standpoint. If it starts leaking again please lay with the paracentesis site up for one hour. At night you should lay with the paracentesis site up the next 2 days. Problem Qualifiers Primary Impression: Ascites Ascites type: other type Qualified Codes: R18.8 - Other ascites
== END 2016-08-19 16:36 | disposition home or self-care (01) ==
LOC: C.EDB 14:31 → C.EDA 16:36
DX: R18.8 Other ascites (principal); T81.89XA Other complications of procedures, not elsewhere classified, initial encounter; I48.91 Unspecified atrial fibrillation; I50.9 Heart failure, unspecified; J44.9 Chronic obstructive pulmonary disease, unspecified; I10 Essential (primary) hypertension; E78.00 Pure hypercholesterolemia, unspecified; F17.200 Nicotine dependence, unspecified, uncomplicated

== ENCOUNTER 2016-08-22 15:16 | Emergency (ER) | payer BC ==
[~2016-08-22] VITALS: Ht 170.2 cm; Wt 104.0 kg
[~2016-08-22 15:16] MED LIST changes: +IPRA1AER2 INH; -MULT-506 PO; -NICO21DI4 TOP; +POTA-65 PO; -POTA20TA16 PO; +SODI1TAB PO
[2016-08-22 15:30] VITALS: Ht 170.2 cm; Wt 104.0 kg
--- NOTE | 2016-08-22 16:09 | EMERGENCY ROOM VISIT NOTE ---
History Report prepared by Nick: Rosalinda Bahena Under the Supervision of: Dr. Crescencio Mullen M.D. First contact with patient: 15:58 Chief Complaint: OTHER COMPLAINT Stated Complaint: LEAKING FROM CATHETER History of Present Illness The patient is a 65 year old male who presents to the Emergency Room with complaints of constant abdominal wound leakage beginning 5 days ago. The patient states that he recently had a paracentesis and has had fluid leaking from the site since then. He reports that he tried new skin at home on the site without relief of his symptoms. The patient denies any abdominal pain. He notes that he was seen here 3 days ago for similar symptoms but has been having persistent leakage since his visit. Source of History: patient Onset: yesterday Position: abdomen Quality: other (leaking) Timing: constant Associated Symptoms: No abdominal pain Review of Systems See HPI for pertinent positives & negatives. A total of 10 systems reviewed and were otherwise negative. Past Medical & Surgical Medical Problems: (1) Atrial Fibrillation (2) Cellulitis of leg (3) Chest pain (4) CHF exacerbation (5) COPD exacerbation (6) GI bleed (7) Hypertension Nos (8) Pure Hypercholesterolem (9) Tobacco Use Disorder Family History Hypertension Social History Smoking Status: Current Every Day Smoker Alcohol Use: other Drug Use: none Marital Status: Occupation Status: retired Current/Historical Medications Scheduled Atenolol (Tenormin), 100 MG PO BID Folic Acid (Folic Acid), 7 MG PO DAILY Ipratropium-Albuterol (Combivent Respimat), 2 PUFFS INH QID Pantoprazole (Pantoprazole Sodium), 40 MG PO DAILY Potassium Chloride (Potassium Chloride ER), 40 MEQ PO DAILY Sodium Chloride (Sodium Chloride), 1 GM PO BID Allergies Coded Allergies: No Known Allergies (Verified , 08/18/16) Physical Exam Vital Signs Date Time Temp Pulse Resp B/P (MAP) Pulse Ox O2 Delivery O2 Flow Rate FiO2 08/22/16 17:58 36.7 57 18 122/81 100 08/22/16 17:57 57 18 122/81 100 08/22/16 15:30 36.7 96 18 105/70 99 Physical Exam GENERAL: Patient is a healthy-appearing well-nourished [] HEAD: Normocephalic atraumatic EYES: Ocular movements intact pupils equal and react to light OROPHARYNX mucous membranes are moist no exudates present no erythema or edema present NECK: Supple no nuchal rigidity CHEST: Good equal expansion LUNGS: Clear and equal to auscultation CARDIAC: Normal S1 and S2 ABDOMEN: Soft nontender no guarding, leak present from an earlier paracentesis BACK: No CVA tenderness EXTREMITIES: No pain upon palpation normal muscle strength in all groups no clubbing cyanosis or edema NEURO: Patient is following commands and answering questions appropriately. Alert and oriented x3 Cranial Nerves 2-12 grossly intact Medical Decision & Procedures ED Course 1558: Past medical records reviewed. The patient was evaluated in room C12B. A complete history and physical examination was performed. 1748: I reevaluated and updated the patient. 1800: Upon reexamination the patient is doing well. I discussed results and treatment plan with the patient. He verbalizes agreement and understanding. The patient is ready for discharge. Medical Decision Medication Reconciliation: I attest that I have personally reviewed the patient' s current medication list Blood Pressure Screening: Patient was found to have lower blood pressure on screening and does not require follow up. This is a 65-year-old male who presents emergency Department with a persistent ascites leak. I did discuss case with radiology who said that the leak may be persistent and the treatment is another paracentesis however radiology is unavailable to do one today. The patient would like me to stop the leak by other means so I applied a large amount of glue to the area. He was then given a second count. I will place a pressure dressing along with an abdominal binder to attempt to stop the leak. The patient was in a hurry to leave freeze leaving for the weekend. Impression Primary Impression: Ascitic fluid Scribe Attestation The scribe's documentation has been prepared under my direction and personally reviewed by me in its entirety. I confirm that the note above accurately reflects all work, treatment, procedures, and medical decision making performed by me. Departure Information Dispostion Home / Self-Care Referrals No Doctor, Assigned (PCP) Forms HOME CARE DOCUMENTATION FORM, IMPORTANT VISIT INFORMATION, WORK / SCHOOL INSTRUCTIONS Patient Instructions My [facility] Additional Instructions Apply pressure You have been examined and treated today on an emergency basis only. This is not a substitute for, or an effort to provide, complete comprehensive medical care. It is impossible to recognize and treat all injuries or illnesses in a single emergency department visit. It is therefore important that you follow up closely with your PCP. Call as soon as possible for an appointment. Thank you for your time and consideration. I look forward to speaking with you again soon. Please don't hesitate to call us if you have any questions. Problem Qualifiers Primary Impression: Ascitic fluid Ascites type: other type Qualified Codes: R18.8 - Other ascites
[2016-08-22] MEDS ORDERED: PRT/40 PO (16:15)
[2016-08-22 17:58] VITALS: BP 122/81; PULSE 57; TEMP 36.7; O2SAT 100
== END 2016-08-22 17:58 | disposition home or self-care (01) ==
LOC: C.EDB 15:27 → C.EDC 17:58
DX: R18.8 Other ascites (principal); Z98.890 Other specified postprocedural states; I50.9 Heart failure, unspecified; J44.9 Chronic obstructive pulmonary disease, unspecified; I48.91 Unspecified atrial fibrillation; I10 Essential (primary) hypertension; E78.00 Pure hypercholesterolemia, unspecified; F17.210 Nicotine dependence, cigarettes, uncomplicated; Z79.899 Other long term (current) drug therapy

== ENCOUNTER → 2016-09-01 | Outpatient (CLI) | payer BC ==
[~2016-09-01] MED LIST changes: +PRT/40 PO
[2016-09-01 17:29] LABS: PLATELET COUNT 254 K/uL (130-400)
[2016-09-01 17:39] LABS: INR 1.2 (0.9-1.1); PARTIAL THROMBOPLASTIN RATIO 1.1; PROTHROMBIN TIME (PATIENT) 12.5 SECONDS (9.0-12.0)
[2016-09-01 17:48] LABS: BLOOD UREA NITROGEN 3 mg/dl (7-18); CREATININE 0.59 mg/dl (0.60-1.40); GLUCOSE 85 mg/dl (70-99)
[2016-09-01 17:49] LABS: BUN/CREATININE RATIO 5.8 (10-20); CALCIUM 8.4 mg/dl (8.5-10.1); CARBON DIOXIDE 26 mmol/L (21-32); CHLORIDE 102 mmol/L (98-107); PHOSPHORUS 3.4 mg/dl (2.5-4.9); POTASSIUM 4.4 mmol/L (3.5-5.1); SODIUM 135 mmol/L (136-145)
[2016-09-04 13:01] LABS: AFP TUMOR MARKER SERUM 9.2 NG/ML (<6.1); ALPHA-1-ANTITRYPSIN TC 67710E 175 MG/DL (83-199)
== END | disposition home or self-care (01) ==
LOC: C.LABBFT 09:38
PROVIDERS: ATTEND Registered Nurse
DX: R18.8 Other ascites (principal); E87.1 Hypo-osmolality and hyponatremia; K76.0 Fatty (change of) liver, not elsewhere classified; Z86.39 Personal history of other endocrine, nutritional and metabolic disease

== ENCOUNTER → 2016-09-03 | Outpatient (CLI) | payer BC | END | disposition home or self-care (01) | LOC: C.LAB 09:25 | PROVIDERS: ATTEND Nurse Practitioner Adult Health | DX: R18.8 Other ascites (principal) ==

== ENCOUNTER → 2016-09-04 | Outpatient (CLI) | payer BC ==
[~2016-09-04] MED LIST changes: +OPTIRAY 320 IV PRN
--- NOTE | 2016-09-04 08:54 | DIAGNOSTIC IMAGING REPORT ---
CT SCAN OF THE ABDOMEN COMBO LIVER PROTOCOL CLINICAL HISTORY: Portal hypertension. COMPARISON STUDY: Abdominal CT dated 11/20/2015. TECHNIQUE: Before and following the IV administration of 120 cc of Optiray 320, CT scan of the abdomen is performed from the lung bases to the pelvic inlet using the liver protocol. Images are reviewed in the axial, sagittal, and coronal planes. IV contrast was administered without complication. Automated dose control exposure was utilized. A dose lowering technique was utilized adhering to the principles of ALARA. CT DOSE: 2670.17 mGy.cm FINDINGS: Lung bases: The heart is enlarged and without pericardial effusion. The coronary arteries are calcified. There is mixed attenuation of the cardiac blood pool as compared to the myocardium suggesting anemia. There is a trace right pleural effusion. Scattered calcified granulomas are identified. No airspace consolidation is seen. Intralobular septal thickening is noted at both lung bases. There is a small hiatal hernia. Liver: The contrast-enhanced liver is cirrhotic in morphology and heterogeneous in attenuation. There is nodularity of the surface contour, widening of the fissures, and hypertrophy of the left lobe and caudate. There is no intrahepatic biliary ductal dilatation. No arterially hypervascular lesions are identified. There are at least 2 lesions identified which demonstrate delayed washout within the liver. A lesion in segment VIII on image #49 measures 2.7 cm and a lesion in segment VII on image #30 measures 1.5 cm. Hepatic and portal vasculature: Hepatic arterial anatomy is conventional. The hepatic veins, portal veins, superior mesenteric vein, and splenic vein are patent. There is recanalization of the periumbilical vein. Perigastric collaterals are noted. Gallbladder: There are calcified gallstones. Gallbladder wall thickening is nonspecific and likely related to adjacent hepatocellular disease. Spleen: The spleen is top normal in size measuring 11.2 cm in length. There are scattered calcified splenic granulomas. Pancreas: Atrophic and grossly unremarkable. Adrenal glands: There is a complex mass lesion identified in the left adrenal gland. The largest component is solid and contains coarse calcifications is seen on image #99. This measures up to 4.5 cm. There are additional loculations measuring 3.7 cm and 2.3 cm. These appear to contain macroscopic fat. The right adrenal gland is normal in appearance. Kidneys: No renal calculi are identified on the unenhanced series. The contrast enhanced kidneys are atrophic and without hydronephrosis. The kidneys enhance symmetrically. Abdominal vasculature: The abdominal aorta is normal in course and caliber noting moderate atherosclerotic calcification. Bowel: Visualized portions of the small bowel and colon are normal in course and caliber. There is moderate diverticulosis of the visualized colon without CT evidence of acute diverticulitis. Peritoneum: There is a moderate volume of abdominal ascites. No intraperitoneal free air is seen. Lymphadenopathy: None. Skeletal structures: The skeletal structures are osteopenic. There is moderate lumbosacral spondylosis. No lytic or blastic lesions are seen. Soft tissues: There is body wall edema. IMPRESSION: 1. The liver is cirrhotic in morphology and heterogeneous in attenuation. 2. There is a moderate volume of abdominal ascites, recanalization of the periumbilical vein, and collateral vessels which indicate portal hypertension. 3. No arterially hypervascular lesions are identified. There are 2 lesions in the right lobe which demonstrate delayed washout and measure up to 2.7 cm. This is highly concerning for hepatocellular carcinoma. Correlation with serum AFP levels and a dedicated MRI of the liver are recommended for further assessment. 4. Cardiomegaly and trace right pleural effusion. Intralobular septal thickening in the lower lobes suggests congestive change which may be chronic. Clinical correlation will be required. 5. There is an indeterminant multi lobulated mass lesion identified in the left adrenal gland. At least 2 of the lobulations contain macroscopic fat and this likely represents a myelolipoma. There is a more solid component measuring up to 4.5 cm. Neoplasm/collision tumor is not excluded. 6. Cholelithiasis without convincing CT evidence of acute cholecystitis. 7. There is moderate diverticulosis of the imaged colon without CT evidence of acute diverticulitis. 8. Additional findings as above. Electronically signed by: José Miguel Butler M.D. 09/04/2016 8:53 AM Dictated Date/Time: 09/04/2016 8:37 AM
== END | disposition home or self-care (01) ==
LOC: C.CTS 08:10
PROVIDERS: ATTEND Nurse Practitioner Adult Health
DX: K76.6 Portal hypertension (principal); R18.8 Other ascites; I51.7 Cardiomegaly; E27.9 Disorder of adrenal gland, unspecified; K80.20 Calculus of gallbladder without cholecystitis without obstruction; K57.30 Diverticulosis of large intestine without perforation or abscess without bleeding

== ENCOUNTER → 2016-12-19 | Outpatient (CLI) | payer BC ==
[~2016-12-19] MED LIST changes: +FRS/40 PO; +MULT-506 PO; -OPTIRAY 320 IV PRN; +PANT40TA2 PO; -PRT/40 PO
[2016-12-19 15:06] LABS: HEMATOCRIT 33.1 % (42-52); MEAN CELL VOLUME 80.5 fL (80-100); MEAN CORPUSCULAR HEMOGLOBIN 26.5 pg (25-34); MEAN CORPUSCULAR HGB CONC 32.9 g/dl (32-36); MEAN PLATELET VOLUME 9.8 fL (7.4-10.4); PLATELET COUNT 229 K/uL (130-400); RED BLOOD COUNT 4.11 M/uL (4.7-6.1); WHITE BLOOD COUNT 5.47 K/uL (4.8-10.8)
[2016-12-19 15:14] LABS: INR 1.1 (0.9-1.1); PROTHROMBIN TIME (PATIENT) 11.6 SECONDS (9.0-12.0)
[2016-12-19 15:33] LABS: BLOOD UREA NITROGEN 6 mg/dl (7-18); BUN/CREATININE RATIO 9.5 (10-20); CALCIUM 9.1 mg/dl (8.5-10.1); CARBON DIOXIDE 28 mmol/L (21-32); CHLORIDE 93 mmol/L (98-107); CREATININE 0.66 mg/dl (0.60-1.40); GLUCOSE 71 mg/dl (70-99); POTASSIUM 4.5 mmol/L (3.5-5.1); SODIUM 127 mmol/L (136-145)
[2016-12-19 15:34] LABS: PHOSPHORUS 4.4 mg/dl (2.5-4.9)
== END | disposition home or self-care (01) ==
LOC: C.LAB1850 14:13
PROVIDERS: ATTEND Internal Medicine Interventional Cardiology
DX: E87.1 Hypo-osmolality and hyponatremia (principal); Z01.818 Encounter for other preprocedural examination

== ENCOUNTER → 2016-12-24 | Day surgery (SDC) | payer BC ==
[~2016-12-24] VITALS: Ht 170.2 cm; Wt 107.0 kg
[~2016-12-24] MED LIST changes: +FENTANYL CITRATE INJ 50 MCG/1 ML 2 ML VIAL ONE; +HEPARIN SOD (PORCINE) 1000 UNIT/ML 10 ML VIAL ONE; +MIDAZOLAM HCL 1 MG/ML 2ML VIAL ONE; +NITROGLYCERIN/D5W 100MCG/ML 20ML SYR ONE; +NiCARDipine HCL INJ 2.5 MG/ML 10 ML AMP ONE
[2016-12-24 11:23] VITALS: BP 132/71; PULSE 86; TEMP 36.8; O2SAT 98; Ht 170.2 cm; Wt 107.0 kg
--- NOTE | 2016-12-24 12:26 | History & Physical Bridge Note ---
H&P Re-Evaluation Bridge Note: I have examined the patient, reviewed the History & Physical and in the interval since the performance of the History & Physical I have noted the following changes of clinical significance: No changes noted
--- NOTE | 2016-12-24 12:26 | Procedure Note ---
Pre-Mod Sedation Assessment General Date of Moderate Sedation: Dec 24, 2016. Vital Signs: Vital Signs Past 12 Hours Date Time Temp Pulse Resp B/P (MAP) Pulse Ox O2 Delivery O2 Flow Rate FiO2 12/24/16 11:23 36.8 86 16 132/71 98 Room Air Review Cardiovascular: regular rate, rhythm, no edema Abdomen: normal bowel sounds, non tender Lungs: chest non-tender, lungs clear Airway Class: III Pre-Sedation Airway Assessment Oral Cavity: WNL Short Thick Neck: No Hx of Sleep Apnea: No Smoking Status: Current Every Day Smoker Mallampati Classification: Class III ASA Classification: Class III Procedure Planning Contraindications-for Mod Sed: None Yes Notes The planned sedation has been discussed with the patient and consent obtained. I have identified the patient, determined the appropriateness of sedation and have assessed the patient immediately prior to the procedure. All medicine(s) and interventions are by my order.
[2016-12-24 13:02] LABS: ISTAT ARTERIAL BLOOD GAS HCO3 24 meq/L (19-24); ISTAT ARTERIAL BLOOD GAS PCO2 35 mmHg (35-46); ISTAT ARTERIAL BLOOD GAS PO2 89 mmHg (80-95); ISTAT ARTERIAL BLOOD GAS pH 7.44 (7.35-7.45); ISTAT CARBON DIOXIDE 25 mEq/l (24-31)
[2016-12-24 13:03] LABS: ISTAT ARTERIAL BLOOD GAS HCO3 25 meq/L (19-24); ISTAT ARTERIAL BLOOD GAS PCO2 39 mmHg (35-46); ISTAT ARTERIAL BLOOD GAS PO2 34 mmHg (80-95); ISTAT ARTERIAL BLOOD GAS pH 7.42 (7.35-7.45); ISTAT CARBON DIOXIDE 27 mEq/l (24-31)
--- NOTE | 2016-12-24 13:34 | Procedure Note ---
Post-Mod Sedation Assessment General Date of Moderate Sedation Dec 24, 2016. Vital Signs: Vital Signs Past 12 Hours Date Time Temp Pulse Resp B/P (MAP) Pulse Ox O2 Delivery O2 Flow Rate FiO2 12/24/16 11:23 36.8 86 16 132/71 98 Room Air Review - Discharge Criteria Vital Signs Stable: Yes Alert/Oriented/Conversant: Yes Returned to Baseline Mental St: Yes Nausea Absent/Minimal: Yes Pain/Discomfort/Absent/Minimal: Yes Normal/Baseline Respirations: Yes Active Bleeding?: No Pt Received D/C Instructions: N/A Prescriptions Given: None Specific Proced. D/C Criteria Distal Pulses Present (Cardiac: Yes Groin site assessed-Card Cath: N/A Voided Prior To Discharge: N/A Discharged Patients Adult Escort/Transportation: Yes
--- NOTE | 2016-12-24 13:57 | Cardiac Catheterization ---
Procedure Note Procedure Date Dec 24, 2016. Pre-Procedure Diagnosis Cardiothoracic Symptom AUC Score 7 Post-Procedure Diagnosis Mild CAD, Normal Intracardiac Pressures Procedure(s) Performed Coronary Angiography, Left Heart Cath, Right Heart Cath Inspector And [employer] Liaison(s) Tulio Estimated Blood Loss 15 Medication(s) Fentanyl, Heparin, Nitroglycerin, Versed, Lidocaine 1% Summary of Findings Indication: Dyspnea/Pre-operative evaluation prior to liver transplant Access: 6Fr slender right radial artery; 6Fr slender antecubital vein Catheters: Prentiss; 6Fr swan Findings: LM - Separate ostia LAD - Moderate caliber vessel, mildly calcified, tortuous; mild 20-30% mid segment disease; luminal irregularities as reaches apex. Circumflex - Large caliber vessel, luminal irregularities. RCA - Dominant, mildly calcified, diffuse proximal to mid 30-40% stenosis; Distal luminal irregularities. RA 4 RV 29/4 PA 25/14 (19) PCW 13 LVEDP 4 PaSat 67% AoSat 97% Sarah CO/CI 6.1/2.8 Thermo CO/CI 5.8/2.7 Arterial Closure: TR Band Summary: 1. Mild non-obstructive coronary artery disease - 20-30% mid LAD disease - 30-40% diffuse proximal to mid RCA disease 2. Normal intracardiac filling pressures. Normal pulmonary artery pressures. 3. Normal cardiac output. Recommendations: From a cardiac standpoint, no contraindications to liver transplant. 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 Data Cardiac Status Clinical evaluation leading to the procedure CAD Presntation: Sx unlikely to be ischemic Anginal Classification: CCS II Heart Failure: No, NYHA Class: CCS I Cardiogenic Shock w/in 24Hrs: No Cardiac Arrest w/in 24Hrs: No Imaging studies past 6 months: Yes Stress studies past 6 months: No Closure Device Percutaneous Entry Location: Radial Closure Device: Radial Band Recommendations: Medical therapy and/or Counseling Intraprocedure Events Significant Dissection: No Perforation: No
--- NOTE | 2016-12-24 14:03 | Discharge Instructions ---
Discharge Instructions Procedure Procedure Date: Dec 24, 2016. Reason for Visit: Pre-Op. Discharge Discharge Date: Dec 24, 2016. Discharge Diagnosis: Mild non-obstructive coronary artery disease Last Recorded Wt (Kilograms): 107 Anesthesia Post Anesthesia Instructions: If you have had General Anesthesia or IV Sedation: * Do not drive today. * Resume driving when surgeon permits. * Do not make important decisions or sign legal documents today. * Call surgeon for: 1. Temperature elevations greater than 101 degrees F. 2. Uncontrollable pain. 3. Excessive bleeding. 4. Persistent nausea and vomiting. 5. Medication intolerance (nausea, vomiting or rash). * For nausea and vomiting use only clear liquids such as: tea, soda, bouillon until nausea subsides, then gradually increase diet as tolerated. * If you have any concerns or questions, call your surgeon's office. If physician is unavailable and it is an emergency, call 911 or go to the nearest emergency room. Instructions Activity Recommendations: limitations as noted below Recommended Home Diet: resume previous diet, low sodium Allergies: Coded Allergies: No Known Allergies (Verified , 08/18/16) Follow Up Additional Instructions: ACTIVITY RECOMMENDATIONS: It is common to feel weak and fatigue for a few days. * Do not drive or operate any motorized equipment for the next two days. * Do not lift anything heavier than 10 pounds for the next three days. * Do not engage in vigorous exercise or any sports for the next five days. * You may shower the day after your procedure, but do not immerse the area for three days. Cleanse the site gently with soap and water. SPECIAL CARE INSTRUCTIONS: * You may replace the pressure dressing or band-aid the morning after the procedure. * After your procedure, it is normal to have a small bruise or small lump at the site. Examine your site daily for any change in the bruise or lump, redness, swelling, drainage or numbness. Notify your doctor if any change. BLEEDING: * If there is a small amount of bleeding at the site, lie down and apply firm pressure with a clean cloth for ten minutes. When the bleeding stops, lie quietly keeping the procedure limb straight for six hours. Notify your doctor as soon as possible. * If the bleeding does not stop after ten minutes or if there is a large amount of bleeding or spurting, call 911 immediately. Continue to lie down and hold firm pressure until help arrives. SKIN IRRITATION: * You may experience some redness and/or swelling in the area where radiation was administered. If any skin irritation occurs, please contact your family physician. FOLLOW UP VISIT: Keep any scheduled doctor appointments. Follow-up with: As scheduled with [facility] Routine follow-up with primary scaffold worker Dr. Radha Jones Recommendations: Call your doctor if: * Temperature above 101 degrees * Pain not relieved by pain medicine ordered * There is increased drainage or redness from any incision * You have any unanswered questions or concerns. Your Doctors Instructions noted above were prepared by provider Steve Ervin. Patient Signature Section: Patient Instructions Signature Page Santos Zarco Patient (or Guardian) Signature/Date: I have read and understand the instructions given to me by my caregivers. Caregiver/RN/Doctor Signature/Date: The above-named patient and/or guardian has received patient instructions on this date. + Original Patient Signature Page (only) stays with chart. Please make copy for patient.
[2016-12-24 15:00] VITALS: BP 108/58; PULSE 82; O2SAT 97
== END | disposition home or self-care (01) ==
LOC: C.CATH 09:55
PROVIDERS: ATTEND Internal Medicine Interventional Cardiology
DX: I25.10 Atherosclerotic heart disease of native coronary artery without angina pectoris (principal); I50.812 Chronic right heart failure; I48.91 Unspecified atrial fibrillation; K74.60 Unspecified cirrhosis of liver; I51.7 Cardiomegaly; I27.20 Pulmonary hypertension, unspecified; J44.9 Chronic obstructive pulmonary disease, unspecified; Z79.899 Other long term (current) drug therapy; F17.210 Nicotine dependence, cigarettes, uncomplicated

== ENCOUNTER → 2017-04-14 | Outpatient (CLI) | payer BC ==
[~2017-04-14] MED LIST changes: -FENTANYL CITRATE INJ 50 MCG/1 ML 2 ML VIAL ONE; -HEPARIN SOD (PORCINE) 1000 UNIT/ML 10 ML VIAL ONE; -MIDAZOLAM HCL 1 MG/ML 2ML VIAL ONE; -NITROGLYCERIN/D5W 100MCG/ML 20ML SYR ONE; -NiCARDipine HCL INJ 2.5 MG/ML 10 ML AMP ONE; -PANT40TA2 PO; -SODI1TAB PO
[2017-04-14 12:39] LABS: HEMOGLOBIN A1C 5.8 % (4.5-5.6)
[2017-04-14 13:19] LABS: ALBUMIN 3.2 gm/dl (3.4-5.0); BLOOD UREA NITROGEN 10 mg/dl (7-18); CALCIUM 8.8 mg/dl (8.5-10.1); CARBON DIOXIDE 25 mmol/L (21-32); CHOLESTEROL 143 mg/dl (0-200); CREATININE 0.84 mg/dl (0.60-1.40); GLUCOSE 113 mg/dl (70-99); PHOSPHORUS 3.6 mg/dl (2.5-4.9); POTASSIUM 4.7 mmol/L (3.5-5.1); SODIUM 128 mmol/L (136-145)
[2017-04-14 13:21] LABS: LDL CHOLESTEROL CALCULATED 83 mg/dl
== END | disposition home or self-care (01) ==
LOC: C.LABBFT 07:59
PROVIDERS: ATTEND Internal Medicine Endocrinology, Diabetes & Metabolism
DX: E87.1 Hypo-osmolality and hyponatremia (principal); D35.00 Benign neoplasm of unspecified adrenal gland

== ENCOUNTER 2018-05-21 19:58 | Inpatient (IN) ==
[2018-05-21] MEDS ORDERED: cefTRIAXone SODIUM 1,000 MG/50 ML BAG IV STA (20:26)
[2018-05-21] MEDS ORDERED: ALBUT/IPRATROP 3MG/0.5MG NEB 3 ML VIAL INH STA (20:26)
[2018-05-21] MEDS ORDERED: ACETAMINOPHEN 1,000 MG/100 ML VIAL IV STA (20:26)
[2018-05-21] MEDS ORDERED: methylPREDNISolone 60 MG in SYRINGE 1 ML IV STA (20:26)
[2018-05-21 20:38] LABS: Basophils # (auto) 0.06 K/uL (0-0.2); Basophils % (auto) 0.5 %; Eosinophils # (auto) 0.41 K/uL (0-0.5); Eosinophils % (auto) 3.5 %; Hematocrit (blood only) 37.8 % (42-52); Hemoglobin 12.9 g/dL (14.0-18.0); Immature Granulocytes # (auto) 0.08 K/uL (0.00-0.02); Immature Granulocytes % (auto) 0.7 %; Lymphocytes # (auto) 1.88 K/uL (1.2-3.4); Lymphocytes % (auto) 16.1 %; Mean Corpuscular Hgb Conc 34.1 g/dL (32-36); Mean Corpuscular Volume 94.3 fL (80-100); Mean Platelet Volume 10.1 fL (7.4-10.4); Monocytes # (auto) 1.84 K/uL (0.11-0.59); Monocytes % (auto) 15.8 %; Neutrophils # (auto) 7.41 K/uL (1.4-6.5); Neutrophils % (auto) 63.4 %; Platelet Count 214 K/uL (130-400); RDW Coefficient of Variation 15.1 % (11.5-14.5); RDW Standard Deviation 51.5 fL (36.4-46.3); Red Blood Count 4.01 M/uL (4.7-6.1); White Blood Count 11.68 K/uL (4.8-10.8)
[2018-05-21] MEDS: MoRPHine SULFATE 2 MG/ML CARP IV PRN ×2 (20:38→21:08)
[2018-05-21 20:48] LABS: INR 1.3 (0.9-1.1); Partial Thromboplastin Ratio 0.9; Partial Thromboplastin Time 23.4 Seconds (21.0-31.0); Prothrombin Time 12.8 Seconds (9.0-12.0)
[2018-05-21 20:54] LABS: Alanine Aminotransferase 39 U/L (12-78); Albumin Level 2.6 gm/dl (3.4-5.0); Aspartate Aminotransferase 47 U/L (15-37); BUN Creatinine Ratio 12.5 (10-20); Blood Urea Nitrogen 10 mg/dl (7-18); Calcium 8.4 mg/dl (8.5-10.1); Carbon Dioxide 30 mmol/L (21-32); Chloride 97 mmol/L (98-107); Creatinine Clr Calc Pharmacy 118.2 ml/min; Est GFR (African American) 106.4; Est GFR (Non-African American) 91.8; Glucose 88 mg/dl (70-99); Magnesium 1.7 mg/dl (1.8-2.4); Sodium 132 mmol/L (136-145)
[2018-05-21 20:58] LABS: Albumin Globulin Ratio 0.7 (0.9-2); Alkaline Phosphatase 160 U/L (45-117); Bilirubin,Total 1.7 mg/dl (0.2-1); Globulin 3.5 gm/dl (2.5-4.0); Total Protein 6.1 gm/dl (6.4-8.2); Troponin I < 0.015 ng/ml (0-0.045)
--- NOTE | 2018-05-21 21:07 | XRay Report ---
XR chest 1V portable CLINICAL HISTORY: sob dyspnea COMPARISON STUDY: 05/16/2017 FINDINGS: Patchy parenchymal infiltrate right base. Mild stable cardiomegaly. Lungs otherwise appear clear. Diaphragms are smooth. IMPRESSION: Minimal parenchymal infiltrate right base. The above report was generated using voice recognition software. It may contain grammatical, syntax or spelling errors. Electronically signed by: Samson Carlton M.D. 05/21/2018 9:06 PM
[2018-05-21] MEDS ORDERED: MAGNESIUM OXIDE 400 MG TAB PO STA (21:11)
[2018-05-21 21:26] LABS: Influenza A virus by PCR Neg for Influ A (Neg); Influenza B virus by PCR Neg for Influ B (Neg)
--- NOTE | 2018-05-21 21:37 | CT Scan Report ---
CT abd pelvis wo con CT DOSE: 1620.54 mGy.cm HISTORY: Trauma. Pain. right abd contusion and pain, poss hematoma or ble TECHNIQUE: Multiaxial CT images of the abdomen and pelvis were performed without contrast. A dose lo wering technique was utilized adhering to the principles of ALARA. COMPARISON STUDY: 09/04/2016 FINDINGS: Fractures of the right seventh through 10th ribs in the midaxillary line. Right lateral sof t tissue contusion. Right chest wall hematoma measuring 9 x 2 cm. Right pleural effusion. Right basil ar and/or lower lobe consolidative change with potential superimposed infiltrate or contusion. Left l hilaria base is clear. Liver spleen and pancreas are grossly unremarkable. Liver again demonstrates a component of the scler otic change. There is small gallstone. Mild cortical scarring of the kidneys. There is a nodular dens ity of the left adrenal which is unaltered from the prior exam. This contains a component of fat and potentially is a mild low lipoma. Bowel pattern is remarkable for scattered colonic diverticulosis. There is no evidence for acute dive rticulitis. There is no free fluid within the abdomen or pelvic region. There is a trace amount of anna dy wall anasarca. There is trace amount of fluid within the mid mesentery, most likely reactive IMPRESSION: 1. Fractures of the right seventh through 10th ribs in the midaxillary line. 2. Mild body wall anasarca with a superimposed soft tissue contusion of the lower right chest wall. 3. Right lateral chest wall hematoma measuring 9 x 2 cm. 3. Right pleural effusion with components of a right lower lobe atelectatic/volume loss change. 4. Potential superimposed small right basilar infiltrate versus contusion. 5. Cirrhotic liver unchanged in the prior study. 6. No acute intra-abdominal or intrapelvic abnormality. 7. Trace free fluid within the mid mesentery most likely reactive The above report was generated using voice recognition software. It may contain grammatical, syntax or spelling errors. Electronically signed by: Samson Carlton M.D. 05/21/2018 9:34 PM
--- NOTE | 2018-05-21 21:39 | Emergency Department Note ---
Entered by Tyrel Mccarty acting as a scribe for José Miguel Falcon MD History of Present Illness General Chief complaint: Chest Pain Stated complaint: CHEST PAIN Time Seen by Provider: 05/21/18 20:19 Source: patient History of Present Illness Provider complaint: Chest pain Onset (ago): week(s) (Past couple weeks) Location: chest and right Radiation: non-radiation Pain Consistency: + constant Maximum Pain Intensity: 10 Quality: + burning Relieved By: + none Exacerbated By: + other (Coughing ) Associated symptoms: + cough and + shortness of breath; no fever/chills The patient is a 67 year old male who presents to the Emergency Room with complaints of constant right sided chest pain that started a couple of weeks ago. He has come to the hospital twice and has seen his PCP for the same symptoms. He also just finished a course of Doxycycline. The pain does not radiate anywhere and is worse when he is coughing or taking a deep breath. He also states that intermittently he feels a burning sensation in the area. He has tried a heating pad to relieve the symptoms but it has not helped. With the pain, he also feels short of breath and has a cough but denies any fevers. The patient denies any falls or injuries but he was recently sick with a cold where he was coughing a lot. The patient does have a history of Afib and COPD. He is no longer on a blood thinner for the Afib due to having dark stool. The patient was here on the and 17 of May. On the he had a chest CT done which showed no PE or pneumonia. He was diagnosed with bronchitis and pre scribed prednisone and albuterol. On the he had an Xray done that showed normal ribs. He was diagnosed with chest wall pain and given oxycodone. Home Medications Home Medications Medication Instructions Recorded Confirmed Type atenolol 100 mg PO BID 01/06/18 05/21/18 History folic acid 7 mg PO DAILY 01/06/18 05/21/18 History furosemide 40 mg PO DAILY 01/06/18 05/21/18 History potassium chloride [Klor-Con M20] 20 mg PO QID 01/06/18 05/21/18 History spironolactone 100 mg PO DAILY 01/06/18 05/21/18 History umeclidinium-vilanterol [Anoro 1 puff INHALATION BID 01/06/18 05/21/18 History Ellipta] pantoprazole 40 mg PO DAILY 05/15/18 05/21/18 History oxycodone 5 mg PO Q6H PRN #20 tab 05/16/18 05/21/18 Rx albuterol sulfate 2 puff INH Q6H PRN 05/21/18 05/21/18 History ergocalciferol (vitamin D2) 50,000 unit PO WK 05/21/18 05/21/18 History [Vitamin D2] Allergies Allergy/AdvReac Type Severity Reaction Status Date / Time No Known Allergies Allergy Verified 05/21/18 20:41 Past Med/Surg History Medical History Ascites (Acute) Asthmatic bronchitis (Acute) CHF exacerbation COPD exacerbation (Acute) COPD exacerbation Cellulitis of leg Chest pain Claudication (Acute) GI bleed (Resolved) Hyponatremia (Acute) Hypoxia (Acute) Rapid atrial fibrillation (Acute) Hypertension Family History Other Family history non-contributory Social History Preferred Language: Palau[place] Beliefs That Will Affect Care: None marital status: Current Living Situation: Spouse current occupational status: retired Feels Safe at Home: Yes Smoking Status: Current every day smoker Hx Alcohol Use: No Review of Systems See HPI for pertinent positives & negatives. and A total of 10 systems reviewed and were otherwise negative Physical Exam Vital Signs Vital Signs - 24 hr 05/21/18 20:02 05/21/18 20:14 05/21/18 20:25 Temperature 36.4 C L Temperature Source Oral Sepsis Recent Fever Within 48 Hours No Sepsis Action Taken by Nursing No Action Required Pulse Rate 88 75 Pulse Rate [Apical] 79 Pulse Rate from SpO2 Sensor 83 Pulse Rhythm [Apical] Irregular Respiratory Rate 20 15 24 Respiratory Effort / Characteristics Labored Respiratory Depth Normal Shallow Blood Pressure 110/68 104/64 Blood Pressure [Right Arm] 104/64 Blood Pressure Mean 82 77 Blood Pressure Mean [Right Arm] 77 Pulse Oximetry 98 96 100 Oxygen Delivery Method Room Air Room Air 05/21/18 20:31 05/21/18 20:40 05/21/18 20:48 Temperature Temperature Source Sepsis Recent Fever Within 48 Hours Sepsis Action Taken by Nursing Pulse Rate 86 77 Pulse Rate [Apical] Pulse Rate from SpO2 Sensor 92 H 89 Pulse Rhythm [Apical] Respiratory Rate 18 20 Respiratory Effort / Characteristics Respiratory Depth Blood Pressure Blood Pressure [Right Arm] Blood Pressure Mean Blood Pressure Mean [Right Arm] Pulse Oximetry 94 96 97 Oxygen Delivery Method Room Air 05/21/18 20:50 05/21/18 21:00 05/21/18 21:10 Temperature Temperature Source Sepsis Recent Fever Within 48 Hours Sepsis Action Taken by Nursing Pulse Rate 98 H 100 H 80 Pulse Rate [Apical] Pulse Rate from SpO2 Sensor 93 H 91 H 81 Pulse Rhythm [Apical] Respiratory Rate 18 16 15 Respiratory Effort / Characteristics Respiratory Depth Blood Pressure Blood Pressure [Right Arm] Blood Pressure Mean Blood Pressure Mean [Right Arm] Pulse Oximetry 100 96 97 Oxygen Delivery Method 05/21/18 21:29 05/21/18 21:30 05/21/18 21:40 Temperature Temperature Source Sepsis Recent Fever Within 48 Hours Sepsis Action Taken by Nursing Pulse Rate 108 H 88 108 H Pulse Rate [Apical] Pulse Rate from SpO2 Sensor Pulse Rhythm [Apical] Respiratory Rate 14 14 Respiratory Effort / Characteristics Respiratory Depth Blood Pressure Blood Pressure [Right Arm] Blood Pressure Mean Blood Pressure Mean [Right Arm] Pulse Oximetry Oxygen Delivery Method 05/21/18 21:47 Temperature 36.7 C Temperature Source Oral Sepsis Recent Fever Within 48 Hours Sepsis Action Taken by Nursing Pulse Rate Pulse Rate [Apical] Pulse Rate from SpO2 Sensor Pulse Rhythm [Apical] Respiratory Rate Respiratory Effort / Characteristics Respiratory Depth Blood Pressure Blood Pressure [Right Arm] Blood Pressure Mean Blood Pressure Mean [Right Arm] Pulse Oximetry Oxygen Delivery Method GENERAL: Patient is in no acute distress. HEENT: No acute trauma, normocephalic atraumatic, mucous membranes moist, no nasal congestion, no scleral icterus. NECK: No stridor, no adenopathy, no meningismus, trachea is midline. LUNGS: Wheezing bilaterally, appears physically out of breath, equal breath sounds bilaterally, diminished breath sounds bilaterally. HEART: Irregular rhythm with normal rate and no murmurs. CHEST: Tender over the right anterior chest wall. ABDOMEN: Soft, nontender, bowel sounds positive, no hernias, no peritonitis. Erythematous rash with some patchy contusion to the right lateral abdomen. No drainage. EXTREMITIES: No cyanosis. Moderate bilateral pedal edema. Full range of motion of all the joints without pain or difficulty, no signs for acute trauma. NEUROLOGIC: Oriented x 3, no acute motor or sensory deficits, no focal weakness. SKIN: No rash, no jaundice, no diaphoresis. Course 2020: The patient was evaluated in room B09, and a complete history and physical examination were performed. 2142: I updated the patient and his on results and the treatment plan. They both agreed. 2144: I spoke to Dr. Ferrari [facility] Hospitalist about the patient's case and she is going to accept him for further evaluation. Consultations Consultation #1: I spoke to Dr. Vega Le [facility] Hospitalist about the patient's case and she is going to accept him for further evaluation. Time: 21:45 Administered Medications Morphine Sulfate (Morphine Sulfate) 2 mg IV Q15M PRN PRN Reason: Pain Stop: 06/04/18 20:25 Last Admin: 05/21/18 21:08 Dose: 2 mg Documented by: [id number] Admin: 05/21/18 20:38 Dose: 2 mg Documented by: [id number] Discontinued Medications Albuterol (Duoneb) 3 ml INH NOW STA Stop: 05/21/18 20:27 Last Admin: 05/21/18 20:38 Dose: 3 ml Documented by: [id number] Acetaminophen (Ofirmev) 1,000 mg in 100 mls @ 400 mls/hr IV NOW STA Stop: 05/21/18 20:40 Last Infusion: 05/21/18 21:13 Dose: 0 mls/hr Documented by: [id number] Admin: 05/21/18 20:38 Dose: 400 mls/hr Documented by: [id number] Methylprednisolone 60 mg/ (Syringe) 1.96 mls @ 1.5 mls/min IV NOW STA Stop: 05/21/18 20:27 Last Admin: 05/21/18 21:41 Dose: 1.5 mls/min Documented by: [id number] Ceftriaxone Sodium (Rocephin) 1,000 mg in 50 mls @ 100 mls/hr IV NOW STA Stop: 05/21/18 20:55 Last Infusion: 05/21/18 21:44 Dose: 0 mls/hr Documented by: [id number] Admin: 05/21/18 21:09 Dose: 100 mls/hr Documented by: [id number] Magnesium Oxide (Mag-Ox) 400 mg PO NOW STA Stop: 05/21/18 21:12 Last Admin: 05/21/18 21:41 Dose: 400 mg Documented by: [id number] Medical Decision Making Differential Diagnosis Differential Diagnosis: Rib fracture, Pneumonia, Pleurisy, Chest wall contusion, Abdominal wall or chest wall hematoma, Intra-abdominal bleeding, Bronchitis, Failed outpatient treatment, and Influenza, amongst others. Medical Records Attestation: I reviewed the patient's medical records. Home Medications Current Medication List: was personally reviewed by me Laboratory Data Attestation: I reviewed the patient's lab results. Result diagrams: 05/21/18 20:15 05/21/18 20:15 Lab Results 05/21/18 05/21/18 05/21/18 Range/Units 20:15 20:15 20:15 WBC 11.68 H (4.8-10.8) K/uL RBC 4.01 L (4.7-6.1) M/uL Hgb 12.9 L (14.0-18.0) g/dL Hct 37.8 L (42-52) % MCV 94.3 (80-100) fL MCH 32.2 (25-34) pg MCHC 34.1 (32-36) g/dL RDW Std Deviation 51.5 H (36.4-46.3) fL RDW Coeff of Zack 15.1 H (11.5-14.5) % Plt Count 214 (130-400) K/uL MPV 10.1 (7.4-10.4) fL Immature Gran % (Auto) 0.7 % Neut % (Auto) 63.4 % Lymph % (Auto) 16.1 % [place] % (Auto) 15.8 % Eos % (Auto) 3.5 % Baso % (Auto) 0.5 % Immature Gran # (Auto) 0.08 H (0.00-0.02) K/uL Neut # (Auto) 7.41 H (1.4-6.5) K/uL Lymph # (Auto) 1.88 (1.2-3.4) K/uL [place] # (Auto) 1.84 H (0.11-0.59) K/uL Eos # (Auto) 0.41 (0-0.5) K/uL Baso # (Auto) 0.06 (0-0.2) K/uL PT 12.8 H (9.0-12.0) Seconds INR 1.3 H (0.9-1.1) APTT 23.4 (21.0-31.0) Seconds PTT Ratio 0.9 Sodium 132 L (136-145) mmol/L Potassium 5.0 (3.5-5.1) mmol/L Chloride 97 L (98-107) mmol/L Carbon Dioxide 30 (21-32) mmol/L Anion Gap 5.0 (3-11) BUN 10 (7-18) mg/dl Creatinine 0.80 (0.6-1.4) mg/dl Est Cr Clr Drug Dosing 118.2 ml/min Est GFR ( Amer) 106.4 Est GFR (Non-Af Amer) 91.8 BUN/Creatinine Ratio 12.5 (10-20) Glucose 88 (70-99) mg/dl Calcium 8.4 L (8.5-10.1) mg/dl Magnesium 1.7 L (1.8-2.4) mg/dl Total Bilirubin 1.7 H (0.2-1) mg/dl AST 47 H (15-37) U/L ALT 39 (12-78) U/L Alkaline Phosphatase 160 H (45-117) U/L Troponin I < 0.015 (0-0.045) ng/ml Total Protein 6.1 L (6.4-8.2) gm/dl Albumin 2.6 L (3.4-5.0) gm/dl Globulin 3.5 (2.5-4.0) gm/dl Albumin/Globulin Ratio 0.7 L (0.9-2) Influenza Type A (PCR) (Neg) Influenza Type B (PCR) (Neg) 05/21/18 Range/Units 20:42 WBC (4.8-10.8) K/uL RBC (4.7-6.1) M/uL Hgb (14.0-18.0) g/dL Hct (42-52) % MCV (80-100) fL MCH (25-34) pg MCHC (32-36) g/dL RDW Std Deviation (36.4-46.3) fL RDW Coeff of Zack (11.5-14.5) % Plt Count (130-400) K/uL MPV (7.4-10.4) fL Immature Gran % (Auto) % Neut % (Auto) % Lymph % (Auto) % [place] % (Auto) % Eos % (Auto) % Baso % (Auto) % Immature Gran # (Auto) (0.00-0.02) K/uL Neut # (Auto) (1.4-6.5) K/uL Lymph # (Auto) (1.2-3.4) K/uL [place] # (Auto) (0.11-0.59) K/uL Eos # (Auto) (0-0.5) K/uL Baso # (Auto) (0-0.2) K/uL PT (9.0-12.0) Seconds INR (0.9-1.1) APTT (21.0-31.0) Seconds PTT Ratio Sodium (136-145) mmol/L Potassium (3.5-5.1) mmol/L Chloride (98-107) mmol/L Carbon Dioxide (21-32) mmol/L Anion Gap (3-11) BUN (7-18) mg/dl Creatinine (0.6-1.4) mg/dl Est Cr Clr Drug Dosing ml/min Est GFR ( Amer) Est GFR (Non-Af Amer) BUN/Creatinine Ratio (10-20) Glucose (70-99) mg/dl Calcium (8.5-10.1) mg/dl Magnesium (1.8-2.4) mg/dl Total Bilirubin (0.2-1) mg/dl AST (15-37) U/L ALT (12-78) U/L Alkaline Phosphatase (45-117) U/L Troponin I (0-0.045) ng/ml Total Protein (6.4-8.2) gm/dl Albumin (3.4-5.0) gm/dl Globulin (2.5-4.0) gm/dl Albumin/Globulin Ratio (0.9-2) Influenza Type A (PCR) Neg for Influ A (Neg) Influenza Type B (PCR) Neg for Influ B (Neg) Imaging Data Radiologist's Impression: Radiology results as stated below per my review and the radiologist's interpretation: XR chest 1V portable CLINICAL HISTORY: sob dyspnea COMPARISON STUDY: 05/16/2017 FINDINGS: Patchy parenchymal infiltrate right base. Mild stable cardiomegaly. Lungs otherwise appear clear. Diaphragms are smooth. IMPRESSION: Minimal parenchymal infiltrate right base. The above report was generated using voice recognition software. It may contain grammatical, syntax or spelling errors. Electronically signed by: Samson Carlton M.D. 05/21/2018 9:[address] abd pelvis wo con CT DOSE: 1620.54 mGy.cm HISTORY: Trauma. Pain. right abd contusion and pain, poss hematoma or ble TECHNIQUE: Multiaxial CT images of the abdomen and pelvis were performed without contrast. A dose lowering technique was utilized adhering to the principles of ALARA. COMPARISON STUDY: 09/04/2016 FINDINGS: Fractures of the right seventh through 10th ribs in the midaxillary line. Right lateral soft tissue contusion. Right chest wall hematoma measuring 9 x 2 cm. Right pleural effusion. Right basilar and/or lower lobe consolidative ch karime with potential superimposed infiltrate or contusion. Left lung base is clear. Liver spleen and pancreas are grossly unremarkable. Liver again demonstrates a component of the sclerotic change. There is small gallstone. Mild cortical scarring of the kidneys. There is a nodular density of the left adrenal which is unaltered from the prior exam. This contains a component of fat and potentially is a mild low lipoma. Bowel pattern is remarkable for scattered colonic diverticulosis. There is no evidence for acute diverticulitis. There is no free fluid within the abdomen or pelvic region. There is a trace amount of body wall anasarca. There is trace amount of fluid within the mid mesentery, most likely reactive IMPRESSION: 1. Fractures of the right seventh through 10th ribs in the midaxillary line. 2. Mild body wall anasarca with a superimposed soft tissue contusion of the lower right chest wall. 3. Right lateral chest wall hematoma measuring 9 x 2 cm. 3. Right pleural effusion with components of a right lower lobe atelectatic/volume loss change. 4. Potential superimposed small right basilar infiltrate versus contusion. 5. Cirrhotic liver unchanged in the prior study. 6. No acute intra-abdominal or intrapelvic abnormality. 7. Trace free fluid within the mid mesentery most likely reactive The above report was generated using voice recognition software. It may contain grammatical, syntax or spelling errors. Electronically signed by: Samson Carlton M.D. 05/21/2018 9:34 PM ECG Data Attestation: I personally reviewed and interpreted this ECG as follows: Indication: chest pain Rate (beats per minute): 98 Rhythm: atrial fibrillation Findings: no PVC and no ST elevation Blood Pressure Blood Pressure Findings: Normal blood pressure MDM Narrative There is a mild leukocytosis at 11.6, this could be consistent with infection or his steroid use. The patient is somewhat anemic with a hemoglobin of 12.9. The lower lower hemoglobin value is typical for him. There was a slight elevation to the INR at 1.3. No significant electrolyte abnormality except for a magnesium of 1.7. No kidney failure. There were a few mild liver enzyme elevations. Influenza testing was negative. Chest film showed what seems to be a pneumonia on the right, no pneumothorax or CHF. EKG showed A. fib, no acute ischemia. Cardiac enzyme testing x1 is not consistent with acute cardiac injury. Abdominal and pelvis CT shows 4 rib fractures on the right. There is a right lower lung pneumonia or possibly atelectasis with a right lung effusion. A right chest wall hematoma was noted. No acute traumatic process within the abdomen or pelvis. No abdominal wall hematoma seen by CT scan. The patient received IV Tylenol and IV morphine for pain. He was given oral magnesium for the slightly lower magnesium value. He was given IV Solu-Medrol for his wheezing, he received a DuoNeb and then a dose of IV ceftriaxone. This is the patient's third visit in a week for right-sided chest pain. He has rib fractures on imaging, he has a potential pneumonia in the right lower lung, there is a right pleural effusion and right chest wall contusion. He is wheezing on exam and I do think a hospital stay is warranted. I spoke to the patient and case management. The on-call hospitalist was ruth teixeira. Patient does seem improved with the treatment outlined above. Impression & Plan Right-sided chest wall pain, Right rib fracture, Pleural effusion, right, Pneumonia, Abdominal wall contusion Discharge Plan Visit Data Chief Complaint: Chest Pain Stated Complaint: CHEST PAIN ED Provider: José Miguel Falcon Discharge Problem: Right-sided chest wall pain, Right rib fracture, Pleural effusion, right, Pneumonia, Abdominal wall contusion Patient Disposition: Being Evaluated by Hospitalist Forms Stand Alone Forms: Call Back Authorization, [facility] Prescriptions Prescriptions: No Action furosemide 40 mg tablet 40 mg PO DAILY RF: 0 atenolol 100 mg tablet 100 mg PO BID RF: 0 spironolactone 100 mg tablet 100 mg PO DAILY RF: 0 potassium chloride [Klor-Con M20] 20 mEq tablet,ER particles/crystals 20 mg PO QID RF: 0 folic acid 1 mg tablet 7 mg PO DAILY RF: 0 Anoro Ellipta 62.5-25 mcg/actuation blister with device 1 puff Inhalation BID RF: 0 pantoprazole 40 mg tablet,delayed release (DR/EC) 40 mg PO DAILY RF: 0 oxycodone 5 mg tablet 5 mg PO Q6H PRN (Reason: pain) Qty: 20 RF: 0 ergocalciferol (vitamin D2) [Vitamin D2] 50,000 unit Capsule 50,000 unit PO WK RF: 0 albuterol sulfate 90 mcg/actuation HFA aerosol inhaler 2 puff INH Q6H PRN (Reason: shortness of breath or wheezing) RF: 0 Referrals Referrals: Erma Santos MD [Primary Care Provider] - Discharge Problem: Right rib fracture Qualifiers: Encounter type: initial encounter Rib fracture type: multiple ribs Fracture type: closed Qualified Code(s): S22.41XA - Multiple fractures of ribs, right side, initial encounter for closed fracture Pneumonia Qualifiers: Pneumonia type: due to unspecified organism Laterality: right Lung location: unspecified part of lung Qualified Code(s): J18.9 - Pneumonia, unspecified organism Abdominal wall contusion Qualifiers: Encounter type: initial encounter Qualified Code(s): S30.1XXA - Contusion of abdominal wall, initial encounter The scribe's documentation has been prepared under my direction and personally reviewed by me in its entirety. I confirm that the note above accurately reflects all work, treatment, procedures, and medical decision making performed by me.
[2018-05-21] MEDS ORDERED: POLYETHYLENE (MIRALAX) 17 GM PACK PO PRN (23:27)
[2018-05-21] MEDS ORDERED: MAGNESIUM SULFATE / D5W 1 GM/100 ML BAG IV ONE (23:27)
[2018-05-21] MEDS ORDERED: ALBUTEROL 0.5% NEB SOLN 2.5 MG/0.5 ML VIAL NEB PRN (23:27)
[2018-05-21] MEDS ORDERED: DOCUSATE SODIUM 100 MG CAP PO PRN (23:27)
[2018-05-21] MEDS ORDERED: MoRPHine SULFATE 2 MG/ML CARP IV PRN (23:27)
--- NOTE | 2018-05-22 01:04 | History & Physical Report ---
Date of Service May 21, 2018 Assessment & Plan (1) Right rib fracture: Patient with multiple rib fractures on the left side. Complaining of pleuritic pain at the site. Possibly secondary to severe cough. Patient denies trauma to the area. -Admit to medical floor -Pain control with Percocet -Morphine as needed -Colace and MiraLAX as needed for constipation -May consider outpatient DEXA scan in setting of multiple rib fractures -Tessalon TID for cough Present on Admission?: Yes (2) Pleural effusion, right: Patient with right pleural effusion noted on CT with atelectasis. Question traumatic vs reactive vs secondary to underlying liver disease. Patient with no respiratory distress at present. Adequate oxygenation on room air. States that shortness of breath is mild and stable -We will check chest x-ray in the morning -Consider CT surgery consult for thoracentesis Present on Admission?: Yes (3) Abdominal wall contusion: Patient with abdominal wall contusion. Denies trauma. No anticoagulation. Normal platelets of 214. INR of 1.3, patient with chronic liver disease. -Check abdominal ultrasound tomorrow to assess for change -Nursing to addis site daily Present on Admission?: Yes (4) Hypertension: Blood pressure well controlled. -Continue atenolol 100 mg p.o. Twice daily -Continue to monitor Present on Admission?: Yes (5) COPD (chronic obstructive pulmonary disease): Patient with history of COPD. Diffuse wheezing noted on exam. -Duo nebs every 6 hours - Albuterol q 2 hours PRN -Prednisone 40mg po daily -Doxycycline 100mg po BID Present on Admission?: Yes (6) Cirrhosis: Compensated -Continue Aldactone 100mg po daily -Continue Lasix 40mg po daily -K repletion based on AM labs F/E/N - Heplock. Monitor electrolytes and replete as needed. Patients home K supplement held, will dose based on AM labs, Low Na diet as tolerated Ppx - SCDs, patient with hematoma Code - Full per discussion w patient Dispo - 355-2 History of Present Illness Chief Complaint: Pain Primary Care Provider: Erma Santos MD Mr. Zarco is a 67-year-old male with history of cirrhosis of the liver secondary to alcohol abuse, COPD, hypertension, atrial fibrillation. Reports 2 weeks of severe, persistent dry cough as well as right-sided chest pain. Patient was seen in the ER on 05/15/18 with complaints of persistent shortness of breath times 1 week. Also complaining right-sided abdominal pain when he coughs. Patient was administered a DuoNeb during that hospital stay. Chest x-ray was done that showed no focal airspace consolidation, mild cardiomegaly and emphysema. CT angio was performed which was negative for acute pulmonary disease. The patient was discharged home on albuterol, prednisone and instructed to complete his course of doxycycline. He returned to the ER on 05/16/18 with complaint of worsening right flank pain. During that ER visit patient had a rib series performed which showed no fracture. He was discharged home with oxycodone as needed. Patient returns today with same complaints. States he still has chronic dry cough as well as right-sided flank pain worse with coughing and deep breathing. He denies fevers, chills or sputum. No hemoptysis. States he becomes slightly short of breath with exertion. No additional complaints. CT performed in the ER revealed fractures of the right seventh through 10th ribs in the mid axillary line. Mild body wall anasarca with a superimposed soft tissue contusion of the lower right chest wall. Right lateral chest wall hematoma. Right pleural effusion. Stable cirrhotic liver. Patient had a recent fracture of his foot after a mechanical fall. Denies other fractures. Denies long-term steroid use ER course: Tylenol, albuterol, ceftriaxone, magnesium oxide, Solu-Medrol, morphine Allergies Allergy/AdvReac Type Severity Reaction Status Date / Time No Known Allergies Allergy Verified 05/21/18 20:41 Home Medications Home Medications Medication Instructions Recorded Confirmed Type atenolol 100 mg PO BID 01/06/18 05/21/18 History folic acid 7 mg PO DAILY 01/06/18 05/21/18 History furosemide 40 mg PO DAILY 01/06/18 05/21/18 History potassium chloride [Klor-Con M20] 20 mg PO QID 01/06/18 05/21/18 History spironolactone 100 mg PO DAILY 01/06/18 05/21/18 History umeclidinium-vilanterol [Anoro 1 puff INHALATION BID 01/06/18 05/21/18 History Ellipta] pantoprazole 40 mg PO DAILY 05/15/18 05/21/18 History oxycodone 5 mg PO Q6H PRN #20 tab 05/16/18 05/21/18 Rx albuterol sulfate 2 puff INH Q6H PRN 05/21/18 05/21/18 History ergocalciferol (vitamin D2) 50,000 unit PO WK 05/21/18 05/21/18 History [Vitamin D2] Past Med/Surg History Medical History Ascites (Acute) Asthmatic bronchitis (Acute) CHF exacerbation Cellulitis of leg Chest pain Claudication (Acute) GI bleed (Resolved) Hyponatremia (Acute) Hypoxia (Acute) Rapid atrial fibrillation (Acute) COPD (chronic obstructive pulmonary disease) Hypertension Surgical History History of foot surgery Family History Other Family history non-contributory Social History Preferred Language: Lithuanian Communication Ability: Effective Safe And Vault Mechanic Required: No Beliefs That Will Affect Care: None marital status: Current Living Situation: Spouse current occupational status: retired Other Information That Helps Us Care for You: No Feels Safe at Home: Yes Safety Concerns: Feels Safe At This Time Smoking Status: Current every day smoker Hx Alcohol Use: Yes Hx Substance Use: No Review of Systems All systems reviewed & are unremarkable except as noted in HPI & below Physical Exam Vital Signs (Past 24 Hours): Last Vital Signs Temp 36.7 C 05/21/18 21:47 Pulse 90 05/21/18 22:20 Resp 14 05/21/18 22:20 BP 116/69 05/21/18 21:46 Pulse Ox 97 05/21/18 21:10 Physical Exam: General: patient in mild discomfort, no acute distress, non- toxic in appearance, AA&O x 4 Skin: warm, dry, intact, area of redness and bruising on right lower abdominal wall HEENT: NC/AT, PERRL, EOMI, anicteric sclera, conjunctiva without injection, external ear normal to inspection and nontender, nares patent, moist mucus membranes, dentition intact, no oropharyngeal lesions, neck supple, trachea midline, no LAD, no thyromegaly, no JVD Heart: +S1/S2, irregularly irregular, no m/r/g Lungs: equal air entry bilaterally, no rales/rhonchi, diffuse end expiratory wheezing Abd: +BS, soft, NT/ND, no masses/organomegaly/ascites, abdominal wall hematoma palpated in right lower quadrant Ext: warm, 2+ pulses in UE/LE bilaterally, no clubbing/cyanosis, 2+ pitting edema bilateral lower extremities with skin changes consistent with chronic venous stasis. No warmth, redness or streaking. Neuro: nonfocal, patient AA&O x 4, speech intact, no facial droop, moving all ex tremities on command with equal strength 5/5 Results & Data Laboratory Results Lab Results 05/21/18 05/21/18 05/21/18 Range/Units 20:15 20:15 20:15 WBC 11.68 H (4.8-10.8) K/uL RBC 4.01 L (4.7-6.1) M/uL Hgb 12.9 L (14.0-18.0) g/dL Hct 37.8 L (42-52) % MCV 94.3 (80-100) fL MCH 32.2 (25-34) pg MCHC 34.1 (32-36) g/dL RDW Std Deviation 51.5 H (36.4-46.3) fL RDW Coeff of Zack 15.1 H (11.5-14.5) % Plt Count 214 (130-400) K/uL MPV 10.1 (7.4-10.4) fL Immature Gran % (Auto) 0.7 % Neut % (Auto) 63.4 % Lymph % (Auto) 16.1 % Carter % (Auto) 15.8 % Eos % (Auto) 3.5 % Baso % (Auto) 0.5 % Immature Gran # (Auto) 0.08 H (0.00-0.02) K/uL Neut # (Auto) 7.41 H (1.4-6.5) K/uL Lymph # (Auto) 1.88 (1.2-3.4) K/uL Carter # (Auto) 1.84 H (0.11-0.59) K/uL Eos # (Auto) 0.41 (0-0.5) K/uL Baso # (Auto) 0.06 (0-0.2) K/uL PT 12.8 H (9.0-12.0) Seconds INR 1.3 H (0.9-1.1) APTT 23.4 (21.0-31.0) Seconds PTT Ratio 0.9 Sodium 132 L (136-145) mmol/L Potassium 5.0 (3.5-5.1) mmol/L Chloride 97 L (98-107) mmol/L Carbon Dioxide 30 (21-32) mmol/L Anion Gap 5.0 (3-11) BUN 10 (7-18) mg/dl Creatinine 0.80 (0.6-1.4) mg/dl Est Cr Clr Drug Dosing 118.2 ml/min Est GFR ( Amer) 106.4 Est GFR (Non-Af Amer) 91.8 BUN/Creatinine Ratio 12.5 (10-20) Glucose 88 (70-99) mg/dl Calcium 8.4 L (8.5-10.1) mg/dl Magnesium 1.7 L (1.8-2.4) mg/dl Total Bilirubin 1.7 H (0.2-1) mg/dl AST 47 H (15-37) U/L ALT 39 (12-78) U/L Alkaline Phosphatase 160 H (45-117) U/L Troponin I < 0.015 (0-0.045) ng/ml Total Protein 6.1 L (6.4-8.2) gm/dl Albumin 2.6 L (3.4-5.0) gm/dl Globulin 3.5 (2.5-4.0) gm/dl Albumin/Globulin Ratio 0.7 L (0.9-2) Influenza Type A (PCR) (Neg) Influenza Type B (PCR) (Neg) 05/21/18 Range/Units 20:42 WBC (4.8-10.8) K/uL RBC (4.7-6.1) M/uL Hgb (14.0-18.0) g/dL Hct (42-52) % MCV (80-100) fL MCH (25-34) pg MCHC (32-36) g/dL RDW Std Deviation (36.4-46.3) fL RDW Coeff of Zack (11.5-14.5) % Plt Count (130-400) K/uL MPV (7.4-10.4) fL Immature Gran % (Auto) % Neut % (Auto) % Lymph % (Auto) % Carter % (Auto) % Eos % (Auto) % Baso % (Auto) % Immature Gran # (Auto) (0.00-0.02) K/uL Neut # (Auto) (1.4-6.5) K/uL Lymph # (Auto) (1.2-3.4) K/uL Carter # (Auto) (0.11-0.59) K/uL Eos # (Auto) (0-0.5) K/uL Baso # (Auto) (0-0.2) K/uL PT (9.0-12.0) Seconds INR (0.9-1.1) APTT (21.0-31.0) Seconds PTT Ratio Sodium (136-145) mmol/L Potassium (3.5-5.1) mmol/L Chloride (98-107) mmol/L Carbon Dioxide (21-32) mmol/L Anion Gap (3-11) BUN (7-18) mg/dl Creatinine (0.6-1.4) mg/dl Est Cr Clr Drug Dosing ml/min Est GFR ( Amer) Est GFR (Non-Af Amer) BUN/Creatinine Ratio (10-20) Glucose (70-99) mg/dl Calcium (8.5-10.1) mg/dl Magnesium (1.8-2.4) mg/dl Total Bilirubin (0.2-1) mg/dl AST (15-37) U/L ALT (12-78) U/L Alkaline Phosphatase (45-117) U/L Troponin I (0-0.045) ng/ml Total Protein (6.4-8.2) gm/dl Albumin (3.4-5.0) gm/dl Globulin (2.5-4.0) gm/dl Albumin/Globulin Ratio (0.9-2) Influenza Type A (PCR) Neg for Influ A (Neg) Influenza Type B (PCR) Neg for Influ B (Neg) Diagnostic Findings CT abd pelvis wo con CT DOSE: 1620.54 mGy.cm HISTORY: Trauma. Pain. right abd contusion and pain, poss hematoma or ble TECHNIQUE: Multiaxial CT images of the abdomen and pelvis were performed without contrast. A dose lowering technique was utilized adhering to the principles of ALARA. COMPARISON STUDY: 09/04/2016 FINDINGS: Fractures of the right seventh through 10th ribs in the midaxillary line. Right lateral soft tissue contusion. Right chest wall hematoma measuring 9 x 2 cm. Right pleural effusion. Right basilar and/or lower lobe consolidative change with potential superimposed infiltrate or contusion. Left lung base is clear. Liver spleen and pancreas are grossly unremarkable. Liver again demonstrates a component of the sclerotic change. There is small gallstone. Mild cortical scarring of the kidneys. There is a nodular density of the left adrenal which is unaltered from the prior exam. This contains a component of fat and potentially is a mild low lipoma. Bowel pattern is remarkable for scattered colonic diverticulosis. There is no evidence for acute diverticulitis. There is no free fluid within the abdomen or pelvic region. There is a trace amount of body wall anasarca. There is trace amount of fluid within the mid mesentery, most likely reactive IMPRESSION: 1. Fractures of the right seventh through 10th ribs in the midaxillary line. 2. Mild body wall anasarca with a superimposed soft tissue contusion of the lower right chest wall. 3. Right lateral chest wall hematoma measuring 9 x 2 cm. 3. Right pleural effusion with components of a right lower lobe atelectatic/volume loss change. 4. Potential superimposed small right basilar infiltrate versus contusion. 5. Cirrhotic liver unchanged in the prior study. 6. No acute intra-abdominal or intrapelvic abnormality. 7. Trace free fluid within the mid mesentery most likely reactive The above report was generated using voice recognition software. It may contain grammatical, syntax or spelling errors. Electronically signed by: Addis Carlton M.D. 05/21/2018 9:34 PM Code Status & VTE Plan Code Status Full code VTE Prophylaxis Plan VTE Prophylaxis will be ordered: Yes Critical Care Time Critical Care Time: No (1) Right rib fracture Encounter type: initial encounter Fracture type: closed Rib fracture type: multiple ribs Qualified Code(s): S22.41XA - Multiple fractures of ribs, right side, initial encounter for closed fracture (2) Abdominal wall contusion Encounter type: initial encounter Qualified Code(s): S30.1XXA - Contusion of abdominal wall, initial encounter (3) Hypertension Hypertension type: essential hypertension Qualified Code(s): I10 - Essential (primary) hypertension (4) COPD (chronic obstructive pulmonary disease) COPD type: unspecified COPD Qualified Code(s): J44.9 - Chronic obstructive pulmonary disease, unspecified
[2018-05-22] MEDS: ALBUT/IPRATROP 3MG/0.5MG NEB 3 ML VIAL NEB SCH ×4 (01:40→19:49)
[2018-05-22 07:08] LABS: Basophils # (auto) 0.01 K/uL (0-0.2); Basophils % (auto) 0.1 %; Eosinophils # (auto) 0.01 K/uL (0-0.5); Eosinophils % (auto) 0.1 %; Hematocrit (blood only) 36.1 % (42-52); Hemoglobin 12.5 g/dL (14.0-18.0); Immature Granulocytes # (auto) 0.03 K/uL (0.00-0.02); Immature Granulocytes % (auto) 0.3 %; Lymphocytes # (auto) 0.84 K/uL (1.2-3.4); Lymphocytes % (auto) 9.3 %; Mean Corpuscular Hgb Conc 34.6 g/dL (32-36); Mean Corpuscular Volume 93.8 fL (80-100); Mean Platelet Volume 10.1 fL (7.4-10.4); Monocytes # (auto) 0.27 K/uL (0.11-0.59); Neutrophils # (auto) 7.89 K/uL (1.4-6.5); Neutrophils % (auto) 87.2 %; Platelet Count 173 K/uL (130-400); RDW Coefficient of Variation 15.2 % (11.5-14.5); RDW Standard Deviation 51.9 fL (36.4-46.3); Red Blood Count 3.85 M/uL (4.7-6.1); White Blood Count 9.05 K/uL (4.8-10.8)
[2018-05-22 07:35] LABS: BUN Creatinine Ratio 17.7 (10-20); Calcium 8.3 mg/dl (8.5-10.1); Creatinine Clr Calc Pharmacy 110.8 ml/min; Est GFR (African American) 103.8; Est GFR (Non-African American) 89.5; Potassium 5.3 mmol/L (3.5-5.1)
[2018-05-22] MEDS: FOLIC ACID 1 MG TAB PO SCH (08:55)
[2018-05-22] MEDS: SPIRONOLACTONE 100 MG TAB PO SCH (08:55)
[2018-05-22] MEDS: FUROSEMIDE 40 MG TAB PO SCH (08:56)
[2018-05-22] MEDS: predniSONE 20 MG TAB PO SCH (08:56)
[2018-05-22] MEDS: DOXYCYCLINE HYCLATE 100 MG CAP PO SCH ×2 (08:57→20:29)
[2018-05-22] MEDS: PANTOprazole 40 MG TAB PO SCH (08:57)
[2018-05-22] MEDS: ATENOLOL 50 MG TABLET PO SCH ×2 (08:57→20:29)
[2018-05-22] MEDS: BENZONATATE 100 MG CAPSULE PO SCH ×3 (08:57→20:29)
--- NOTE | 2018-05-22 10:51 | XRay Report ---
DECUBITUS CHEST RADIOGRAPHS CLINICAL HISTORY: Pleural effusion. FINDINGS: Right and left lateral decubitus chest x-rays are compared to study dated 05/21/2018 and cor related with chest CT dated 05/15/[address] dated 05/21/2018. There is a small to mod erate layering right pleural effusion. There is no evidence of loculation. No left pleural effusion i s identified. The heart is enlarged. Emphysema and chronic interstitial thickening are noted. There i s no airspace consolidation typical for pneumonia seen on these decubitus views. Atherosclerotic calc ification is noted in the thoracic aorta. IMPRESSION: 1. There is a small to moderate layering right pleural effusion. This is similar in appearance to yes terday's abdominal CT scan. 2. No left pleural effusion is identified. 3. Cardiomegaly and emphysema. Electronically signed by: José Miguel Butler M.D. 05/22/2018 10:50 AM
--- NOTE | 2018-05-22 10:53 | Ultrasound Report ---
ULTRASOUND ABDOMINAL WALL CLINICAL HISTORY: Abdominal wall contusion. COMPARISON STUDY: Abdominal CT dated 05/21/2018. FINDINGS: Real-time, grayscale, and color flow sonography of the right abdominal wall is performed at the site of bruising. Subcutaneous soft tissue edema and fluid is identified at the site of interest . No organized hematoma is identified. No abnormal vascularity is identified on color imaging. IMPRESSION: Soft tissue edema and subcutaneous fluid is identified at the site of interest. No organi zed hematoma is seen. Electronically signed by: José Miguel Butler M.D. 05/22/2018 10:52 AM
[2018-05-22] MEDS ORDERED: MoRPHine SULFATE 2 MG/ML CARP IV STA (10:57)
[2018-05-22] MEDS ORDERED: MoRPHine SULFATE 4 MG/ML 1 ML CARP\\VIAL IV STA (11:37)
[2018-05-22 12:00] LABS: Appearance Pleural Fluid BLOODY; Color Pleural Fluid RED; Mononuclear WBC Pleural 32.1 %; Polynuclear WBC Pleural 67.9 %; RBC Pleural Fluid (A) 1010000 /uL; Source Pleural Fluid RIGHT LUNG; WBC Pleural Fluid (A) 2939 /uL
[2018-05-22 12:02] LABS: Glucose Pleural Fluid 137 mg/dl
--- NOTE | 2018-05-22 12:07 | XRay Report ---
SINGLE VIEW CHEST CLINICAL HISTORY: Status post thoracentesis. FINDINGS: An AP, portable, upright chest radiograph is compared to study dated 05/21/2018. The examina tion is degraded by portable technique and patient rotation. The heart is enlarged and there is athe rosclerotic calcification of the thoracic ureter. The pulmonary vasculature is noncongested. Emphysem a and chronic interstitial thickening are similar to previous. There is a small residual right pleura l effusion associated atelectasis. No pneumothorax is seen. The skeletal structures are osteopenic. T he bony thorax is grossly intact. IMPRESSION: 1. Cardiomegaly and emphysema. 2. There is trace residual right pleural effusion status post thoracentesis. 3. No pneumothorax is identified. Electronically signed by: José Miguel Butler M.D. 05/22/2018 12:06 PM
[2018-05-22 12:12] LABS: LDH Pleural Fluid 407 U/L; Total Protein Pleural Fluid 1.9 g/dl
--- NOTE | 2018-05-22 12:12 | Procedure Note ---
Procedure Note Date of Service May 22, 2018 Procedure Date: noted above Procedure: Thoracentesis Pre-procedure Diagnosis: Right-sided pleural effusion Post-procedure Diagnosis: same as above Prior to Procedure: Informed Consent: The risks, benefits, indications, potential complications, and alternatives were explained to the patient and informed consent obtained. Attending Staff: Moy Whitaker DO Resident/Physician Event Planning Intern: Not applicable Indications: The patient is a 67-year-old male patient with right-sided pleural effusion and history of cirrhosis with right-sided rib fractures requiring thoracentesis The identity of the patient was confirmed and a bedside time out was performed. Description of Procedure: Patient positioned, the right posterior axillary line was prepped with chlorhexidine and draped in usual sterile fashion. Ultrasound guidance was used and appropriate fluid pocket was identified. 5 mL of 1% Lidocaine without epinephrine was used to anesthetize the area. A needle was introduced into the pleural space and fluid removed. Total Fluid Removed: 350 ml Color of Fluid: Bloody Sent for: Gram Stain, culture, cell count, glucose, protein, LDH, pleural pH Complications: None Estimated blood loss: Trace Post procedure chest x-ray has been ordered
--- NOTE | 2018-05-22 12:26 | Procedure Note ---
Procedure Note Date of Service May 22, 2018 Procedure Date: Noted above Critical Care Medicine Point of Care Bedside Ultrasound Procedure: Limited Bedside Lung Ultrasound Indication: Right-sided pleural effusion Attending: Elodia Whitaker DO Resident/Physician Director Of Critical Care: Not applicable Organs Examined: Lung Phrenic Point (axillary), PLAPS point (posterior) A lines visualized: Absent, Hemithorax: Right B lines visualized: Absent, Hemithorax: Right Lung Sliding: Present, Hemithorax: Right Tissue-like Sign: Present, Hemithorax: Right Shred Sign: Absent, Hemithorax: Right Quad Sign: Present, Hemithorax: Right Sinusoid Sign: Present, Hemithorax: Right Type of effusions: Complex, Hemithorax: Right Interpleural distance: Greater than 2 cm Impression: Complicated pleural effusion with layering on right with compressive atelectasis of the lung Images obtained are saved for permanent record
[2018-05-22 12:32] LABS: Albumin Level 2.5 gm/dl (3.4-5.0); Bilirubin,Total 1.8 mg/dl (0.2-1); Total Protein 6.2 gm/dl (6.4-8.2)
[2018-05-22] MEDS: SODIUM CHLORIDE 1 GM TABLET PO SCH ×2 (13:57→20:30)
[2018-05-22] MEDS ORDERED: INFLUENZA VIRUS QUAD VACCINE 0.5 ML SYR IM ONE (15:15)
[2018-05-22] MEDS ORDERED: INFLUENZA ADMINISTRATION CHARGE ONE (15:15)
[2018-05-22] MEDS ORDERED: PNEUMOCOCCAL POLYSACCHARIDES 25 MCG/0.5 ML VIAL/SYR IM ONE (15:15)
[2018-05-22] MEDS ORDERED: PNEUMOCOCCAL ADMINISTRATION CHARGE ONE (15:15)
[2018-05-22] MEDS: OXYCODONE HCL IR 5 MG TAB (IMMEDIATE RELEASE) PO PRN (18:10)
[2018-05-22] MEDS: LIDOCAINE 5% 1 PATCH TD SCH (18:11)
--- NOTE | 2018-05-22 22:39 | Hospitalist Progress Note ---
Date of Service May 22, 2018 Assessment & Plan (1) Right rib fracture: Patient with multiple rib fractures on the left side. Complaining of pleuritic pain at the site. Possibly secondary to severe cough. Patient denies trauma to the area. -Admit to medical floor -Pain control with Percocet -Morphine as needed -Colace and MiraLAX as needed for constipation -May consider outpatient DEXA scan in setting of multiple rib fractures -Tessalon TID for cough -placed on lidocaine patch for pain. cONSIDER REPEAT IMAGING ON 04/22 for right pleural effusion. (2) Pleural effusion, right: Patient with right pleural effusion noted on CT with atelectasis. Question traumatic vs reactive vs secondary to underlying liver disease. Patient with no respiratory distress at present. Adequate oxygenation on room air. States that shortness of breath is mild and stable -We will check chest x-ray in the morning -consulted thoracic surgery for thoracocenthesis. This was performed by Dr. Whitaker.Awaiting results. Patient feels better after procedure. (3) Abdominal wall contusion: Patient with abdominal wall contusion. Denies trauma. No anticoagulation. Normal platelets of 214. INR of 1.3, patient with chronic liver disease. -Check abdominal ultrasound : no hematoma noted. -Nursing to addis site daily (4) Hypertension: Blood pressure well controlled. -Continue atenolol 100 mg p.o. Twice daily -Continue to monitor (5) COPD (chronic obstructive pulmonary disease): Patient with history of COPD. No longer having wheezing. -Duo nebs every 6 hours - Albuterol q 2 hours PRN -Prednisone 40mg po daily -Doxycycline 100mg po BID (6) Cirrhosis: Compensated -Continue Aldactone 100mg po daily -Continue Lasix 40mg po daily F/E/N - Heplock. Ppx - SCDs, patient with hematoma Code - Full per discussion w patient Subjective 67 yo male reports continuing to have right sided chest pain from his fracture. He denies any difficulty breathing now after having a thoracocenthesis Review of Systems All systems reviewed & are unremarkable except as noted in HPI & below Physical Exam Vital Signs (Past 24 Hours): Last Vital Signs Temp 36.3 C L 05/22/18 15:17 Pulse 88 05/22/18 20:26 Resp 16 05/22/18 19:49 BP 103/78 05/22/18 20:26 Pulse Ox 95 05/22/18 19:49 Physical Exam: General: patient in mild discomfort, no acute distress, non- toxic in appearance, AA&O x 4 Skin: warm, dry, intact, area of redness and bruising on right lower abdominal wall HEENT: NC/AT, PERRL, EOMI, anicteric sclera, conjunctiva without injection, external ear normal to inspection and nontender, nares patent, moist mucus membranes, no oropharyngeal lesions, neck supple, trachea midline, no JVD Heart: +S1/S2, irregularly irregular, no m/r/g Lungs: equal air entry bilaterally, no rales/rhonchi, no wheezing Abd: +BS, soft, NT/ND, no masses/organomegaly/ascites, abdominal wall hematoma palpated in right lower quadrant Ext: warm, 2+ pulses in UE/LE bilaterally, no clubbing/cyanosis, 2+ pitting edema bilateral lower extremities with skin changes consistent with chronic venous stasis. No warmth, redness or streaking. Neuro: nonfocal, patient AA&O x 4, speech intact, moving all extremities on command with equal strength 5/5 (1) Right rib fracture Encounter type: initial encounter Fracture type: closed Rib fracture type: multiple ribs Qualified Code(s): S22.41XA - Multiple fractures of ribs, right side, initial encounter for closed fracture (2) Abdominal wall contusion Encounter type: initial encounter Qualified Code(s): S30.1XXA - Contusion of abdominal wall, initial encounter (3) COPD (chronic obstructive pulmonary disease) COPD type: unspecified COPD Qualified Code(s): J44.9 - Chronic obstructive pulmonary disease, unspecified (4) Hypertension Hypertension type: essential hypertension Qualified Code(s): I10 - Essential (primary) hypertension
--- NOTE | 2018-05-22 23:03 | Consultation Report ---
DATE OF CONSULTATION: 05/22/2018 CHIEF COMPLAINT: Pleural effusion. HISTORY OF PRESENT ILLNESS: This is a 67year-old male who I evaluated in his hospital room. The patient was resting comfortably at the bedside at the time of my exam. The patient notes that approximately 2 weeks ago he had an episode of pneumonia, where he had a persistent cough. Since this time, he has had persistent right-sided pleuritic chest pain and some associated shortness of breath with activity. He was previously seen in the Emergency Department, but he said he was discharged home and this was in early May of this year. It is noteworthy to mention that he did have a CT scan of his chest on May 15 of this year that showed no airspace consolidations or pneumonia. There is no evidence of PE. He was noted to have some abdominal ascites and no other concerning findings were noted at that time. Due to ongoing symptoms, the patient presented to the Emergency Department last evening, where he did have a CT scan of the abdomen and pelvis. He was noted to have some fractures of his right-sided ribs, ribs #7 through #10. He was noted to have a right lateral chest wall hematoma and a right pleural effusion. He did have a decubitus chest x-rays, which also did show a layering right pleural effusion. For this reason, we are consulted. I did question the patient on numerous symptoms and he said he did not fall or have any head injuries. Denies visual changes, tinnitus, sore throat or neck pain. He does not report any substernal chest pain but does note some right-sided pleuritic chest pain. He does note some associated shortness of breath with activity but says he is generally okay at rest. He has not had any fever, shakes, or chills. He denies any nausea, vomiting or abdominal pain. He denies dysuria. He does not note any history of DVT, PE, anxiety or depression. PAST MEDICAL HISTORY: 1. Cirrhosis. 2. Asthmatic bronchitis. 3. History of CHF. 4. History of gastrointestinal bleed. 5. History of atrial fibrillation. 6. Chronic obstructive pulmonary disease. 7. Hypertension. PAST SURGICAL HISTORY: History of foot surgery. ALLERGIES: None. OUTPATIENT MEDICATIONS: Include, 1. Albuterol inhaler as needed. 2. Atenolol 100 mg twice daily. 3. Vitamin D2 50,000 units each week. 4. Folic acid 7 mg daily. 5. Lasix 40 mg daily. 6. Oxycodone 5 mg every 6 hours as needed. 7. Protonix 40 mg daily. 8. Potassium chloride 20 mEq 4 times daily. 9. Spironolactone 100 mg daily. 10. Anoro Ellipta inhaler twice daily. SOCIAL HISTORY: The patient says that he does have a previous history of alcohol use and currently only drinks nonalcoholic beer. FAMILY HISTORY: He does not know family history of premature coronary artery disease. REVIEW OF SYSTEMS: As noted above. PHYSICAL EXAMINATION: VITAL SIGNS: Blood pressure is 111/77, pulse 111 and regular, respirations are 16 nonlabored. He is afebrile. Temperature 36.5, pulse ox 96% on room air. GENERAL: He is alert and oriented x3. He is in no distress. HEENT: Head is atraumatic, normocephalic. EYES: Pupils equal, round react to light and accommodation. Extraocular motions are intact. EARS: Auditory acuity is grossly intact. NOSE: Nasal patency was intact. Sinuses are nontender. Mouth is moist without exudates. NECK: Supple, no JVD is noted. CARDIOVASCULAR: Regular rate and rhythm. LUNGS: The patient's lungs revealed the left side was clear to auscultation. The right side did reveal decreased breath sounds at the base. There are no wheezing, rhonchi or rales. There is no use of accessory muscles. His chest wall was examined and he did have some point tenderness on the right lateral chest wall. He also had an associated area of ecchymosis/hematoma over the right flank. ABDOMEN: Rotund, nonpainful to palpation. EXTREMITIES: Revealed no cyanosis, clubbing. NEUROLOGIC: Revealed cranial nerves II through XII are grossly intact. He can move all 4 extremities and follow simple commands without noted focal deficits. DIAGNOSTIC DATA: As described above. In addition, he did have labs this morning, where his white blood cell count is noted to be normal. At time of admission, it was 11.6, hemoglobin and hematocrit were 12.5 and 36.1 and has been stable over the past 24 hours. Platelet count is within the normal range. Coagulation studies revealed an INR of 1.3 and chemistry profile showed sodium is 129. His potassium is 5.3. BUN and creatinine are 15 and 0.8. IMPRESSION: A 67-year-old male with a right pleural effusion. PLAN: The patient's pleural effusion could be multifactorial. It could be related to underlying cirrhosis. It could also be related to his underlying rib fractures. Of note, the patient says that he did not have any falls but has been forcefully coughing due to pneumonia and this is to be the cause of his rib fractures. I did explain to him that thoracentesis may be of benefit, which were to provide a diagnostic as well as therapeutic reasons. My attending physician, Dr. Slater is out of town today, but I did discuss the case with Dr. Whitaker of the intensive care service and he says he will evaluate the patient later today and consider performing a thoracentesis. We will certainly await Dr. Whitaker's evaluation of this case with further recommendations to follow. NANNETTE
[2018-05-23] MEDS: ALBUT/IPRATROP 3MG/0.5MG NEB 3 ML VIAL NEB SCH ×4 (02:05→20:04)
[2018-05-23] MEDS: OXYCODONE HCL IR 5 MG TAB (IMMEDIATE RELEASE) PO PRN ×2 (04:13→12:58)
[2018-05-23 08:42] LABS: Hematocrit (blood only) 33.1 % (42-52); Hemoglobin 11.4 g/dL (14.0-18.0); Mean Corpuscular Hgb Conc 34.4 g/dL (32-36); Mean Corpuscular Volume 93.2 fL (80-100); Mean Platelet Volume 10.3 fL (7.4-10.4); Platelet Count 195 K/uL (130-400); RDW Coefficient of Variation 15.4 % (11.5-14.5); RDW Standard Deviation 52.4 fL (36.4-46.3); Red Blood Count 3.55 M/uL (4.7-6.1); White Blood Count 14.39 K/uL (4.8-10.8)
[2018-05-23 09:00] LABS: BUN Creatinine Ratio 20.7 (10-20); Calcium 8.5 mg/dl (8.5-10.1); Creatinine Clr Calc Pharmacy 104.6 ml/min; Est GFR (African American) 101.4; Est GFR (Non-African American) 87.5; Potassium 4.9 mmol/L (3.5-5.1)
[2018-05-23] MEDS: SPIRONOLACTONE 100 MG TAB PO SCH (09:28)
[2018-05-23] MEDS: FOLIC ACID 1 MG TAB PO SCH (09:28)
[2018-05-23] MEDS: DOXYCYCLINE HYCLATE 100 MG CAP PO SCH ×2 (09:28→20:34)
[2018-05-23] MEDS: FUROSEMIDE 40 MG TAB PO SCH (09:29)
[2018-05-23] MEDS: BENZONATATE 100 MG CAPSULE PO SCH ×3 (09:29→20:38)
[2018-05-23] MEDS: ATENOLOL 50 MG TABLET PO SCH ×2 (09:29→20:33)
[2018-05-23] MEDS: SODIUM CHLORIDE 1 GM TABLET PO SCH ×2 (09:29→20:33)
[2018-05-23] MEDS: LIDOCAINE 5% 1 PATCH TD SCH (09:29)
[2018-05-23] MEDS: predniSONE 20 MG TAB PO SCH (09:29)
[2018-05-23] MEDS: PANTOprazole 40 MG TAB PO SCH (09:30)
[2018-05-23] MEDS ORDERED: OXYCODONE HCL 10 MG TABCR (OXYCONTIN) PO STA (14:01)
--- NOTE | 2018-05-23 14:16 | Hospitalist Progress Note ---
Date of Service May 23, 2018 Assessment & Plan (1) Right rib fracture: Patient with multiple rib fractures on the right side. Complaining of pleuritic pain at the site. Possibly secondary to severe cough. Patient denies trauma to the area. confirms that he never fell at home pain difficult to control add Oxycodone 10mg q12, continue OxyIR 5mg q6 PRN discussed importance of taking deep breaths and coughing to prevent pneumonia no fever or chills currently, cough non-productive low threshold to treat for bacterial infection - Colace and MiraLAX as needed for constipation May consider outpatient DEXA scan in setting of multiple rib fractures without trauma there is no sign (2) Pleural effusion, right: Patient with right pleural effusion noted on CT with atelectasis. Question traumatic vs reactive vs secondary to underlying liver disease. Patient with no respiratory distress at present. Adequate oxygenation on room air. States that shortness of breath is mild and stable likely a small hemothorax given that it was significantly bloody no growth on culture, AFB and fungal pending breathing much better, clear breath sounds in the bases of the lungs on right (3) Abdominal wall contusion: Patient with abdominal wall contusion. Denies trauma. No anticoagulation. Normal platelets of 214. INR of 1.3, patient with chronic liver disease. -Check abdominal ultrasound : no hematoma noted. not getting worse (4) Hypertension: Blood pressure well controlled. -Continue atenolol 100 mg p.o. Twice daily -Continue to monitor (5) COPD (chronic obstructive pulmonary disease): Patient with history of COPD. No longer having wheezing. -Duo nebs every 6 hours - Albuterol q 2 hours PRN -Prednisone 40mg po daily quickly taper -Doxycycline 100mg po BID for 5 days only (6) Cirrhosis: Compensated -Continue Aldactone 100mg po daily -Continue Lasix 40mg po daily F/E/N - Heplock. Ppx - SCDs, patient with hematoma Code - Full per discussion w patient Subjective patient still with a lot of pain in right chest difficult taking a deep breath, but does not feel short of breath appetite is poor, no fever or chills said that it hurts when he chews food discussed adding Oxycodone sustained release, he agreed updated at the bedside reviewed chart and recent labs Review of Systems All systems reviewed & are unremarkable except as noted in HPI & below Physical Exam Vital Signs (Past 24 Hours): Last Vital Signs Temp 36.7 C 05/23/18 07:24 Pulse 104 H 05/23/18 09:25 Resp 16 05/23/18 07:24 BP 124/81 05/23/18 09:25 Pulse Ox 95 05/23/18 07:24 Constitutional: WD/WN, vitals as above Eyes: PERRL, conjunctivae normal, anicteric sclerae ENMT: external ear and nose normal, oropharynx normal Neck: trachea midline, no thyromegaly Respiratory: normal respiratory effort, normal percussion and + cough; no labored breathing Auscultation: + diminished lung sounds (right base); no crackles, no rales and no wheezes Cardiovascular: Rate/Rhythm: + tachycardic; + abnormal rhythm (irregular irregular) Heart Sounds: normal S1 and normal S2; no murmur Vessels: normal peripheral pulses; no JVD Extremities: no pedal edema Chest (Breasts): Chest: + abnormal inspection of chest (significant bruising right side, tender to palpation) Gastrointestinal (Abdomen): normal bowel sounds, soft, nontender, no hepatosplenomegaly Musculoskeletal: no cyanosis or clubbing, extremities motor strength 5/5 Skin: no rashes, warm and dry Neurologic: patellar DTR's 2+ bilat, sensation intact and PERRL, EOMI, accommodation nl, no face palsy, no dysarthria Psychiatric: A+Ox3, euthymic affect Lymphatic: no cervical or axillary lymphadenopathy Results & Data Laboratory Results Laboratory Results - last 24 hr 05/23/18 05/23/18 08:26 08:26 WBC 14.39 H RBC 3.55 L Hgb 11.4 L Hct 33.1 L MCV 93.2 MCH 32.1 MCHC 34.4 RDW Std Deviation 52.4 H RDW Coeff of Zack 15.4 H Plt Count 195 MPV 10.3 Sodium 130 L Potassium 4.9 Chloride 94 L Carbon Dioxide 29 Anion Gap 6.0 BUN 19 H Creatinine 0.90 Est Cr Clr Drug Dosing 104.6 Est GFR ( Amer) 101.4 Est GFR (Non-Af Amer) 87.5 BUN/Creatinine Ratio 20.7 H Glucose 115 H Calcium 8.5 Medications Administered Current Inpatient Medications Albuterol (Duoneb) 3 ml NEB Q6R [facility] Stop: 06/21/18 01:59 Last Admin: 05/23/18 07:00 Dose: 3 ml Documented by: Albuterol (Ventolin 0.5% 2.5mg/0.5ml) 2.5 mg NEB Q2H PRN PRN Reason: SOB/Wheeze Stop: 06/20/18 23:26 Atenolol (Tenormin) 100 mg PO BID [facility] Stop: 06/21/18 08:59 Last Admin: 05/23/18 09:29 Dose: 100 mg Documented by: Benzonatate (Tessalon Perle) 100 mg PO TID [facility] Stop: 06/21/18 08:59 Last Admin: 05/23/18 12:58 Dose: 100 mg Documented by: Diphenhydramine HCl (Benadryl Capsule) 50 mg PO QPM [facility] Stop: 06/21/18 20:59 Last Admin: 05/22/18 20:25 Dose: 50 mg Documented by: Docusate Sodium (Colace) 100 mg PO BID PRN PRN Reason: Constipation Stop: 06/20/18 23:26 Doxycycline Hyclate (Vibramycin) 100 mg PO BID [facility] Stop: 05/29/18 08:59 Last Admin: 05/23/18 09:28 Dose: 100 mg Documented by: Folic Acid (Folvite) 7 mg PO DAILY [facility] Stop: 06/21/18 08:59 Last Admin: 05/23/18 09:28 Dose: 7 mg Documented by: Furosemide (Lasix) 40 mg PO DAILY [facility] Stop: 06/21/18 08:59 Last Admin: 05/23/18 09:29 Dose: 40 mg Documented by: Lidocaine (Lidoderm 5%) 1 patch TD QAM [facility] Stop: 06/21/18 17:14 Last Admin: 05/23/18 09:29 Dose: 1 patch Documented by: Miscellaneous (Remove Lidoderm Patch) 1 ea N/A DAILY@2100 [facility] Stop: 06/21/18 22:59 Last Admin: 05/22/18 23:43 Dose: 1 ea Documented by: Morphine Sulfate (Morphine Sulfate) 2 mg IV Q4H PRN PRN Reason: Pain Stop: 06/04/18 23:26 Last Admin: 05/22/18 07:55 Dose: 2 mg Documented by: Oxycodone HCl (Roxicodone Immediate Rel) 5 mg PO Q6H PRN PRN Reason: pain Stop: 06/04/18 23:26 Last Admin: 05/23/18 12:58 Dose: 5 mg Documented by: Oxycodone HCl (Oxycontin) 10 mg PO Q12 [facility] Stop: 06/06/18 20:59 Oxycodone HCl (Oxycontin) 10 mg PO NOW STA Stop: 05/23/18 14:02 Pantoprazole Sodium (Protonix) 40 mg PO DAILY [facility] Stop: 06/21/18 08:59 Last Admin: 05/23/18 09:30 Dose: 40 mg Documented by: Polyethylene Glycol (Miralax Powder Packet) 17 gm PO DAILY PRN PRN Reason: Constipation Stop: 06/20/18 23:26 Prednisone (Prednisone) 40 mg PO DAILY [facility] Stop: 06/21/18 08:59 Last Admin: 05/23/18 09:29 Dose: 40 mg Documented by: Sodium Chloride (Sodium Chloride) 1 gm PO BID [facility] Stop: 06/21/18 09:14 Last Admin: 05/23/18 09:29 Dose: 1 gm Documented by: Spironolactone (Aldactone) 100 mg PO DAILY [facility] Stop: 06/21/18 08:59 Last Admin: 05/23/18 09:28 Dose: 100 mg Documented by: (1) Right rib fracture Encounter type: initial encounter Fracture type: closed Rib fracture type: multiple ribs Qualified Code(s): S22.41XA - Multiple fractures of ribs, right side, initial encounter for closed fracture (2) Abdominal wall contusion Encounter type: initial encounter Qualified Code(s): S30.1XXA - Contusion of abdominal wall, initial encounter (3) COPD (chronic obstructive pulmonary disease) COPD type: unspecified COPD Qualified Code(s): J44.9 - Chronic obstructive pulmonary disease, unspecified (4) Hypertension Hypertension type: essential hypertension Qualified Code(s): I10 - Essential (primary) hypertension
[2018-05-23] MEDS: OXYCODONE HCL 10 MG TABCR (OXYCONTIN) PO SCH (20:28)
[2018-05-24] MEDS: ALBUT/IPRATROP 3MG/0.5MG NEB 3 ML VIAL NEB SCH ×2 (01:40→07:28)
[2018-05-24] MEDS: OXYCODONE HCL IR 5 MG TAB (IMMEDIATE RELEASE) PO PRN (01:54)
[2018-05-24] MEDS: BENZONATATE 100 MG CAPSULE PO SCH (08:23)
[2018-05-24] MEDS: ATENOLOL 50 MG TABLET PO SCH (08:24)
[2018-05-24] MEDS: predniSONE 20 MG TAB PO SCH (08:24)
[2018-05-24] MEDS: DOXYCYCLINE HYCLATE 100 MG CAP PO SCH (08:24)
[2018-05-24] MEDS: PANTOprazole 40 MG TAB PO SCH (08:24)
[2018-05-24] MEDS: SODIUM CHLORIDE 1 GM TABLET PO SCH (08:24)
[2018-05-24] MEDS: FUROSEMIDE 40 MG TAB PO SCH (08:24)
[2018-05-24] MEDS: FOLIC ACID 1 MG TAB PO SCH (08:25)
[2018-05-24] MEDS: OXYCODONE HCL 10 MG TABCR (OXYCONTIN) PO SCH (08:26)
[2018-05-24] MEDS: SPIRONOLACTONE 100 MG TAB PO SCH (08:26)
[2018-05-24] MEDS: LIDOCAINE 5% 1 PATCH TD SCH (08:26)
--- NOTE | 2018-05-24 12:08 | Progress Note ---
DATE: 05/24/2018 Mr. Zarco was seen today on 05/24/2018. He states that he feels better after he was drained for 350 mL of fluid yesterday. The pH was 7.35, however, while he had many red blood cells, his LDH was 407, which is a bit concerning. Gram stain showed no evidence of any organisms. He has been afebrile since admission. He did have an elevated white count yesterday 14,390, but clinically looks quite stable. In addition, he has had stable vital signs. At this point, we will continue to watch him. I am curious to see what the cytology and final micro, but it does not appear to be infected.
--- NOTE | 2018-05-24 17:22 | Discharge Summary ---
Date of Service May 24, 2018 Admission HPI Per Admitting Provider Mr. Zarco is a 67-year-old male with history of cirrhosis of the liver secondary to alcohol abuse, COPD, hypertension, atrial fibrillation. Reports 2 weeks of severe, persistent dry cough as well as right-sided chest pain. Patient was seen in the ER on 05/15/18 with complaints of persistent shortness of breath times 1 week. Also complaining right-sided abdominal pain when he coughs. Patient was administered a DuoNeb during that hospital stay. Chest x-ray was done that showed no focal airspace consolidation, mild cardiomegaly and emphysema. CT angio was performed which was negative for acute pulmonary disease. The patient was discharged home on albuterol, prednisone and instructed to complete his course of doxycycline. He returned to the ER on 05/16/18 with complaint of worsening right flank pain. During that ER visit patient had a rib series performed which showed no fracture. He was discharged home with oxycodone as needed. Patient returns today with same complaints. States he still has chronic dry cough as well as right-sided flank pain worse with coughing and deep breathing. He denies fevers, chills or sputum. No hemoptysis. States he becomes slightly short of breath with exertion. No additional complaints. CT performed in the ER revealed fractures of the right seventh through 10th ribs in the mid axillary line. Mild body wall anasarca with a superimposed soft tissue contusion of the lower right chest wall. Right lateral chest wall hematoma. Right pleural effusion. Stable cirrhotic liver. Patient had a recent fracture of his foot after a mechanical fall. Denies other fractures. Denies long-term steroid use ER course: Tylenol, albuterol, ceftriaxone, magnesium oxide, Solu-Medrol, morphine Admission Exam Per Admitting Provider General: patient in mild discomfort, no acute distress, non-toxic in appearance, AA&O x 4 Skin: warm, dry, intact, area of redness and bruising on right lower abdominal wall HEENT: NC/AT, PERRL, EOMI, anicteric sclera, conjunctiva without injection, external ear normal to inspection and nontender, nares patent, moist mucus membranes, dentition intact, no oropharyngeal lesions, neck supple, trachea midline, no LAD, no thyromegaly, no JVD Heart: +S1/S2, irregularly irregular, no m/r/g Lungs: equal air entry bilaterally, no rales/rhonchi, diffuse end expiratory wheezing Abd: +BS, soft, NT/ND, no masses/organomegaly/ascites, abdominal wall hematoma palpated in right lower quadrant Ext: warm, 2+ pulses in UE/LE bilaterally, no clubbing/cyanosis, 2+ pitting edema bilateral lower extremities with skin changes consistent with chronic venous stasis. No warmth, redness or streaking. Neuro: nonfocal, patient AA&O x 4, speech intact, no facial droop, moving all extremities on command with equal strength 5/5 Principal Diagnosis Right rib fractures 7-10 Discharge Exam Constitutional WD/WN, vitals as above Eyes PERRL, conjunctivae normal, anicteric sclerae ENMT external ear and nose normal, oropharynx normal Neck trachea midline, no thyromegaly Respiratory normal respiratory effort, normal percussion and + cough; no labored breathing Auscultation: + diminished lung sounds (right base); no crackles, no rales and no wheezes Cardiovascular Rate/Rhythm: + tachycardic; + abnormal rhythm (irregular irregular) Heart Sounds: normal S1 and normal S2; no murmur Vessels: normal peripheral pulses; no JVD Extremities: no pedal edema Chest (Breasts) Chest: + abnormal inspection of chest (significant bruising right side, tender to palpation) Gastrointestinal (Abdomen) normal bowel sounds, soft, nontender, no hepatosplenomegaly Musculoskeletal no cyanosis or clubbing, extremities motor strength 5/5 Skin no rashes, warm and dry Neurologic patellar DTR's 2+ bilat, sensation intact and PERRL, EOMI, accommodation nl, no face palsy, no dysarthria Psychiatric A+Ox3, euthymic affect Lymphatic no cervical or axillary lymphadenopathy Discharge Data Allergies Allergy/AdvReac Type Severity Reaction Status Date / Time No Known Allergies Allergy Verified 05/21/18 20:41 Consultations 05/21/18 21:47 ED Decision to Admit Stat 05/22/18 09:07 Consult Thoracic Surgery Routine 05/22/18 09:40 Consult Senior Technical Support Analyst Routine Ordered Studies 05/21/18 21:02 CT abd pelvis wo con Stat 05/22/18 01:30 US abdomen limited Daily 05/22/18 09:47 US point of care ultrasound Routine Hospital Course (1) Right rib fracture: Patient with multiple rib fractures on the right side. Complaining of pleuritic pain at the site. Possibly secondary to severe cough. Patient denies trauma to the area. confirms that he never fell at home pain difficult to control added Oxycodone 10mg q12 on 05/23, slept all night long, minimal pain next day continue OxyIR 5mg q6 PRN discussed importance of taking deep breaths and coughing to prevent pneumonia no fever or chills currently, cough non-productive plan for discharge: continue OxyContin 10mg q12 for the next 10 days, use Oxy IR for breakthrough can use Lidoderm patches over the counter if that helps educated on taking deep breaths, staying upright as much as possible, using incentive spirometer close follow up with PCP RECOMMEND GETTING OUTPATIENT DEXA SCAN TO LOOK FOR OSTEOPOROSIS these were non-traumatic fractures could consider malignancy but there is no evidence of cancer on CT scan (2) Pleural effusion, right: Patient with right pleural effusion noted on CT with atelectasis. Question traumatic vs reactive vs secondary to underlying liver disease. Patient with no respiratory distress at present. Adequate oxygenation on room air. States that shortness of breath is mild and stable likely a small hemothorax given that it was significantly bloody no growth on culture, AFB and fungal pending breathing much better, clear breath sounds in the bases of the lungs on right no further accumulation of fluid, can be discharged (3) Abdominal wall contusion: Patient with abdominal wall contusion. Denies trauma. No anticoagulation. Normal platelets of 214. INR of 1.3, patient with chronic liver disease. -Check abdominal ultrasound : no hematoma noted. Hb stable for several days (4) Hypertension: Blood pressure well controlled. -Continue atenolol 100 mg p.o. Twice daily -Continue to monitor (5) COPD (chronic obstructive pulmonary disease): Patient with history of COPD. presented with mild COPD exacerbation with wheezing and increased work of breathing No longer having wheezing. - Albuterol q 2 hours PRN -Prednisone 40mg po daily quickly taper on discharge -Doxycycline 100mg po BID for 5 days only (6) Cirrhosis: Compensated -Continue Aldactone 100mg po daily -Continue Lasix 40mg po daily Total Time Total Time Spent Total Time Spent (In Minutes): 40 minutes Total Time Includes: Examination of the Patient, Discharge Planning and Medication Reconciliation Discharge Plan Discharge Items Patient Disposition: Home - Self-Care Reason For Visit: RIB FRACTURES Discharge Diagnosis: Right rib fractures, right hemothorax, right abdominal wall hematoma Condition: Good Discharge Goals: Decrease discomfort, Improve disease control and Improve function Activity: Per 'Additional Instructions' section Lifting: No more than 5 pounds Bathing: No limitations Sexual Activity: When tolerated Exercise/Sports: Gradually increase as tolerated Driving/Machine Use Comment: no driving while on narcotic pain medications Non-emergency contact: Primary Care Provider Call non-emergency contact if: you have any medication questions, your symptoms worsen, your pain is not controlled, your pain is worsening and you have a fever Follow-up/Referrals: Erma Santos MD [Primary Care Provider] - Diet: Heart Healthy Addtl Provider Instructions: Medications: - Doxycycline: 100mg twice a day, this if for antibiotic coverage for COPD exacerbation, will cover for developing bacterial infection - Prednisone: 40mg daily x 3 days, 30mg x 3 days, 20mg x 3 days and 10mg x 3 d ays, this is for COPD exacerbation - OxyContin: 10mg every 12 hours scheduled, this is for pain control, take for the next 10 days - Oxycodone: 5mg every 6 hours as needed, this is for breakthrough pain, see below Right rib fractures, non-traumatic, due to fall associated with a small hemothorax (bleeding into chest wall) that was drained also with abdominal wall hematoma blood counts have been stable for days, no signs of active blood loss, bruising that is visible is old blood james treatment for fractures is pain control use the OxyContin every 12 hours for the next 10 days for steady state pain control use the Oxycodone 5mg every 6 hours as needed for breakthrough pain you can use over the counter lidoderm patches if they help want you upright as much as possible during the day, want lungs to be fully expanded take walks several times a day, use incentive spirometer to encourage deep breathing important that your pain is controlled so that you can cough if you need to you can use Docusate sodium and/or Miralax over the counter to help prevent constipation and straining which may aggravate pain COPD exacerbation resolving, finish Prednisone taper and Doxycycline at home no clear evidence of pneumonia once the fluid was drained and right lung expanded FOLLOW UP - call for appointment with Dr. Santos for Thursday, want her to see how pain is controlled, how you are feeling Prescriptions: New doxycycline hyclate 100 mg Capsule 100 mg PO BID 5 Days Qty: 10 RF: 0 oxycodone [OxyContin] 10 mg Tablet,Oral Only,Ext.Rel.12 Hr 10 mg PO Q12 10 Days Qty: 20 RF: 0 prednisone 10 mg tablet 40 mg PO DAILY 12 Days Qty: 30 RF: 0 Continued furosemide 40 mg tablet 40 mg PO DAILY RF: 0 atenolol 100 mg tablet 100 mg PO BID RF: 0 spironolactone 100 mg tablet 100 mg PO DAILY RF: 0 potassium chloride 20 mEq tablet,ER particles/crystals 20 mg PO QID RF: 0 folic acid 1 mg tablet 7 mg PO DAILY RF: 0 umeclidinium-vilanterol 62.5-25 mcg/actuation blister with device 1 puff Inhalation BID RF: 0 pantoprazole 40 mg tablet,delayed release (DR/EC) 40 mg PO DAILY RF: 0 ergocalciferol (vitamin D2) [Vitamin D2] 50,000 unit Capsule 50,000 unit PO WK RF: 0 albuterol sulfate 90 mcg/actuation HFA aerosol inhaler 2 puff INH Q6H PRN (Reason: shortness of breath or wheezing) RF: 0 oxycodone 5 mg tablet 5 mg PO Q6H PRN (Reason: pain) 20 Days Qty: 40 RF: 0 Stand-Alone Forms: Call Back Authorization, [facility] Discharge Orders: Discharge Order (Routine); Ordered 05/24/18 Ordered By: Jean Claude Graham Admission Data Admit Date/Time: 05/21/18 22:33 Attending Provider: Jean Claude Graham Admit Provider: Tatyana Ferrari Primary Care Provider: Erma Santos Other Providers: Tatyana Ferrari ; Patel Slater ; Ney Whitaker Service: Surgical Services Other Interventions: Discharge Summary Assessment (RN) Last Done: 05/24/18 11:47 DC Date/Time DO NOT enter until pt leaves facility: 05/24/18 13:10
== END 2018-05-24 13:10 | disposition home or self-care (01) | DRG 184 ==
LOC: ED 19:58 → 3W 22:33 → SUATTDRO 22:33 → 3W 23:13

== ENCOUNTER 2018-06-02 10:12 | Inpatient (IN) ==
[2018-06-02] MEDS ORDERED: ONDANSETRON INJ 2 MG/ML 2 ML VIAL IV STA (10:29)
[2018-06-02] MEDS ORDERED: ALBUT/IPRATROP 3MG/0.5MG NEB 3 ML VIAL NEB STA (10:32)
[2018-06-02] MEDS: MoRPHine SULFATE 4 MG/ML 1 ML CARP\\VIAL IV PRN ×3 (10:34→15:39)
[2018-06-02 10:44] LABS: Basophils # (auto) 0.01 K/uL (0-0.2); Basophils % (auto) 0.1 %; Eosinophils # (auto) 0.31 K/uL (0-0.5); Eosinophils % (auto) 2.2 %; Hematocrit (blood only) 31.7 % (42-52); Hemoglobin 11.2 g/dL (14.0-18.0); Immature Granulocytes # (auto) 0.11 K/uL (0.00-0.02); Immature Granulocytes % (auto) 0.8 %; Lymphocytes # (auto) 2.05 K/uL (1.2-3.4); Lymphocytes % (auto) 14.5 %; Mean Corpuscular Hgb Conc 35.3 g/dL (32-36); Mean Corpuscular Volume 94.3 fL (80-100); Mean Platelet Volume 10.3 fL (7.4-10.4); Monocytes # (auto) 1.45 K/uL (0.11-0.59); Monocytes % (auto) 10.3 %; Neutrophils % (auto) 72.1 %; Platelet Count 205 K/uL (130-400); RDW Coefficient of Variation 17.7 % (11.5-14.5); Red Blood Count 3.36 M/uL (4.7-6.1); White Blood Count 14.13 K/uL (4.8-10.8)
[2018-06-02 10:54] LABS: INR 1.2 (0.9-1.1); Partial Thromboplastin Ratio 0.9; Partial Thromboplastin Time 23.7 Seconds (21.0-31.0); Prothrombin Time 12.4 Seconds (9.0-12.0)
--- NOTE | 2018-06-02 10:59 | Emergency Department Note ---
Entered by Lani Parks acting as a scribe for Anselmo Chao DO History of Present Illness General Chief complaint: Chest Pain Source: patient and EMS History of Present Illness Provider complaint: right-sided chest pain Onset (ago): hour(s) (today) Location: chest and right Quality: + other (pain) Associated symptoms: + denies other symptoms (denies abdominal pain) Treatments prior to arrival: aspirin and other (Nitroglycerin, Fentanyl) The patient is a 67 year old male who presents to the Emergency Department with complaints of right-sided chest pain today. He denies having abdominal pain. The patient states that he was on Eliquis a couple of years ago but states that he is no longer on it as he had black stools. He states that he took his blood pressure medication today. The patient denies alcohol or tobacco use today. Per EMS, the patient has a history of broken ribs. He states that he broke his ribs from coughing 3 weeks ago. EMS states that the patient was given Nitro en route which did not alleviate his pain. EMS states that the patient was also given aspirin and Fentanyl. Per EMS, the patient has a history of atrial fibrillation. Per EMS, the patient was 93 on room air. The patient states that he does not wear Oxygen normally. Per EMS, the patient did not get a breathing treatment en route. Home Medications Home Medications Medication Instructions Recorded Confirmed Type atenolol 100 mg PO BID 01/06/18 06/02/18 History folic acid 7 mg PO QAM 01/06/18 06/02/18 History furosemide 40 mg PO QAM 01/06/18 06/02/18 History potassium chloride 20 mg PO QID 01/06/18 06/02/18 History umeclidinium-vilanterol [Anoro 1 puff INHALATION QAM 01/06/18 06/02/18 History Ellipta] pantoprazole 40 mg PO QAM 05/15/18 06/02/18 History albuterol sulfate 2 puff INH Q6H PRN 05/21/18 06/02/18 History ergocalciferol (vitamin D2) 50,000 unit PO WK 05/21/18 06/02/18 History [Vitamin D2] oxycodone 5 mg PO Q6H PRN 20 Days #40 tab 05/24/18 06/02/18 Rx oxycodone [OxyContin] 10 mg PO Q12 PRN 06/02/18 06/02/18 History prednisone 10 mg PO QAM 06/02/18 06/02/18 History sodium chloride 2 g PO BID 06/02/18 06/02/18 History spironolactone 50 mg PO BID 06/02/18 06/02/18 History Allergies Allergy/AdvReac Type Severity Reaction Status Date / Time No Known Allergies Allergy Verified 06/02/18 10:50 Past Med/Surg History Medical History Ascites (Acute) Asthmatic bronchitis (Acute) Cellulitis of leg Chest pain (Acute) Claudication (Acute) GI bleed (Resolved) Hyponatremia (Acute) Hypoxia (Acute) Rapid atrial fibrillation (Acute) CHF (congestive heart failure) COPD (chronic obstructive pulmonary disease) Hypertension Surgical History History of thoracentesis Family History Other Family history non-contributory Social History Preferred Language: Cypriot Communication Ability: Effective Visual Impairment: No Limitations Hearing Ability: Normal Provider Enrollment Specialist Required: No Beliefs That Will Affect Care: None marital status: Current Living Situation: Spouse current occupational status: retired Other Information That Helps Us Care for You: No Feels Safe at Home: Yes Safety Concerns: Feels Safe At This Time Smoking Status: Current every day smoker Tobacco Type: cigarettes Cigarettes Per Day: 20 Tobacco Cessation Education Requested by Patient: No Hx Alcohol Use: No Hx Substance Use: No Review of Systems See HPI for pertinent positives & negatives. and A total of 10 systems reviewed and were otherwise negative Physical Exam Vital Signs Vital Signs - 24 hr 06/02/18 10:17 06/02/18 10:36 06/02/18 10:59 Temperature Temperature Source Sepsis Recent Fever Within 48 Hours No Sepsis New/Unexplained Change in Mental Status No Sepsis Action Taken by Nursing No Action Required Pulse Rate 123 H 128 H Pulse Rate [Right Finger] Pulse Rate from SpO2 Sensor 128 H Respiratory Rate 20 32 H Respiratory Effort / Characteristics Respiratory Depth Respiratory Pattern Blood Pressure 109/78 105/88 Blood Pressure [Left Arm] Blood Pressure Mean 88 93 Blood Pressure Mean [Left Arm] Blood Pressure Position [Left Arm] Pulse Oximetry 95 94 92 Oxygen Delivery Method Room Air Room Air Oxygen Flow Rate Fraction of Inspired Oxygen 06/02/18 12:10 06/02/18 12:30 06/02/18 12:37 Temperature Temperature Source Sepsis Recent Fever Within 48 Hours Sepsis New/Unexplained Change in Mental Status Sepsis Action Taken by Nursing Pulse Rate 118 H 104 H Pulse Rate [Right Finger] Pulse Rate from SpO2 Sensor 118 H 128 H Respiratory Rate 30 H 27 H Respiratory Effort / Characteristics Spontaneous Labored Short of Breath Respiratory Depth Normal Respiratory Pattern Regular Blood Pressure 110/66 98/68 L Blood Pressure [Left Arm] Blood Pressure Mean 80 78 Blood Pressure Mean [Left Arm] Blood Pressure Position [Left Arm] Pulse Oximetry 95 94 Oxygen Delivery Method Nasal Cannula Oxygen Flow Rate Fraction of Inspired Oxygen 06/02/18 13:00 06/02/18 13:31 06/02/18 14:00 Temperature Temperature Source Sepsis Recent Fever Within 48 Hours Sepsis New/Unexplained Change in Mental Status Sepsis Action Taken by Nursing Pulse Rate 110 H 118 H 129 H Pulse Rate [Right Finger] Pulse Rate from SpO2 Sensor 116 H 119 H 125 H Respiratory Rate 12 13 13 Respiratory Effort / Characteristics Respiratory Depth Respiratory Pattern Blood Pressure 108/74 100/73 98/76 L Blood Pressure [Left Arm] Blood Pressure Mean 85 82 83 Blood Pressure Mean [Left Arm] Blood Pressure Position [Left Arm] Pulse Oximetry 98 96 98 Oxygen Delivery Method Oxygen Flow Rate Fraction of Inspired Oxygen 06/02/18 14:30 06/02/18 15:28 06/02/18 16:00 Temperature Temperature Source Sepsis Recent Fever Within 48 Hours Sepsis New/Unexplained Change in Mental Status Sepsis Action Taken by Nursing Pulse Rate 122 H 122 H Pulse Rate [Right Finger] Pulse Rate from SpO2 Sensor 123 H Respiratory Rate 15 15 Respiratory Effort / Characteristics Spontaneous Moaning Short of Breath SOB on Exertion Respiratory Depth Respiratory Pattern Blood Pressure 99/78 L 96/64 L Blood Pressure [Left Arm] Blood Pressure Mean 85 Blood Pressure Mean [Left Arm] Blood Pressure Position [Left Arm] Pulse Oximetry 97 97 Oxygen Delivery Method Nasal Cannula Nasal Cannula Oxygen Flow Rate Fraction of Inspired Oxygen 06/02/18 16:20 06/02/18 20:00 06/02/18 20:29 Temperature 37.1 C Temperature Source Oral Sepsis Recent Fever Within 48 Hours Sepsis New/Unexplained Change in Mental Status Sepsis Action Taken by Nursing Pulse Rate Pulse Rate [Right Finger] 117 H 125 H Pulse Rate from SpO2 Sensor Respiratory Rate 20 22 Respiratory Effort / Characteristics Non-Labored Spontaneous SOB on Exertion Respiratory Depth Normal Normal Respiratory Pattern Regular Blood Pressure Blood Pressure [Left Arm] 84/59 L Blood Pressure Mean Blood Pressure Mean [Left Arm] 67 Blood Pressure Position [Left Arm] Lying Pulse Oximetry 94 Oxygen Delivery Method Nasal Cannula Nasal Cannula Nasal Cannula Oxygen Flow Rate 3 2 Fraction of Inspired Oxygen 98 06/02/18 23:45 06/03/18 03:14 06/03/18 05:03 Temperature 37.1 C 36.8 C Temperature Source Oral Oral Sepsis Recent Fever Within 48 Hours Sepsis New/Unexplained Change in Mental Status Sepsis Action Taken by Nursing Pulse Rate 125 H Pulse Rate [Right Finger] 116 H 125 H Pulse Rate from SpO2 Sensor Respiratory Rate 20 18 Respiratory Effort / Characteristics Non-Labored Respiratory Depth Normal Respiratory Pattern Regular Blood Pressure 111/68 Blood Pressure [Left Arm] 112/63 101/63 Blood Pressure Mean Blood Pressure Mean [Left Arm] 79 75 Blood Pressure Position [Left Arm] Pulse Oximetry 96 94 Oxygen Delivery Method Nasal Cannula Nasal Cannula Oxygen Flow Rate 2 2 Fraction of Inspired Oxygen 06/03/18 07:01 06/03/18 07:15 Temperature 36.8 C Temperature Source Oral Sepsis Recent Fever Within 48 Hours Sepsis New/Unexplained Change in Mental Status Sepsis Action Taken by Nursing Pulse Rate Pulse Rate [Right Finger] 119 H 112 H Pulse Rate from SpO2 Sensor Respiratory Rate 20 18 Respiratory Effort / Characteristics Non-Labored Spontaneous Respiratory Depth Respiratory Pattern Blood Pressure Blood Pressure [Left Arm] 110/95 Blood Pressure Mean Blood Pressure Mean [Left Arm] 100 Blood Pressure Position [Left Arm] Lying Pulse Oximetry 91 98 Oxygen Delivery Method Nasal Cannula Nasal Cannula Oxygen Flow Rate 2 2 Fraction of Inspired Oxygen GENERAL: The patient is awake and alert but very anxious appearing. He appears to be having significant difficulty breathing. EYES: The conjunctivae are clear. The pupils are round and reactive. EARS, NOSE, MOUTH AND THROAT: The nose is without any evidence of any deformity. Mucous membranes are moist tongue is midline NECK: The neck is nontender and supple. RESPIRATORY: Shallow respirations were noted. There are diminished breath sounds at the right base. Significant expiratory wheezing and tachypnea was noted. CARDIOVASCULAR: Irregular rhythm with tachycardic rate was noted. There is no definite murmur noted. GASTROINTESTINAL: The abdomen was significantly distended. There is no guarding or rigidity noted. There was significant ecchymosis and edema over the abdomina l wall anteriorly. MUSCULOSKELETAL/EXTREMITIES: There is no evidence of gross deformity full range of motion is noted in the hips and shoulders. There is significant tenderness over the right rib cage. SKIN: There is no obvious evidence of any rash. Severe edema was noted in both lower extremities extending up to the abdominal wall. NEUROLOGIC: Patient is awake alert and oriented x3. Course 1016: The patient was evaluated in room B5. A history and physical were performed. 1137: I discussed the patient's case with Dr. Slater-Cardiothoracic Surgery who said that he will follow in consultation. 1145: I discussed the patient's case with Dr. Krish Jones who will evaluate the patient for further management. 1150: I updated the patient. He verbalized agreement and understanding of the treatment plan. Consultations Consultation #1: Dr. Slater-Cardiothoracic Surgery Time: 11:37 Consultation #2: Dr. Krish Jones Time: 11:45 Administered Medications Albuterol (Duoneb) 3 ml NEB QIDR [facility] Stop: 07/02/18 15:59 Last Admin: 06/03/18 07:13 Dose: 3 ml Documented by: [id number] Admin: 06/02/18 19:20 Dose: Not Given Documented by: [id number] Admin: 06/02/18 16:20 Dose: 3 ml Documented by: [id number] Atenolol (Tenormin) 100 mg PO BID [facility] Stop: 07/02/18 20:59 Last Admin: 06/03/18 07:59 Dose: 100 mg Documented by: [id number] Admin: 06/02/18 23:47 Dose: 100 mg Documented by: [id number] Benzonatate (Tessalon Perle) 100 mg PO TID [facility] Stop: 07/02/18 16:29 Last Admin: 06/03/18 08:00 Dose: 100 mg Documented by: [id number] Admin: 06/02/18 21:21 Dose: 100 mg Documented by: [id number] Admin: 06/02/18 19:24 Dose: Not Given Documented by: [id number] Folic Acid (Folvite) 7 mg PO QAM [facility] Stop: 07/03/18 08:59 Last Admin: 06/03/18 08:01 Dose: 7 mg Documented by: [id number] Furosemide 40 mg/ Syringe 4 mls @ 4 mls/min IV DAILY [facility] Stop: 07/02/18 16:29 Last Admin: 06/03/18 08:00 Dose: 4 mls/min Documented by: [id number] Admin: 06/02/18 16:44 Dose: 4 mls/min Documented by: [id number] Ceftriaxone Sodium 2,000 mg/ (Dextrose) 50 mls @ 100 mls/hr IV Q24H [facility]; Protocol Stop: 06/12/18 19:59 Last Infusion: 06/02/18 22:04 Dose: 0 mls/hr Documented by: [id number] Admin: 06/02/18 21:19 Dose: 100 mls/hr Documented by: [id number] Lidoc[facility] ([facility]oderm 5%) [facility] [place]: 07/02/18 16:29 Last Admin: 06/03/18 08:02 Dose: Not Given Documented by: [id number] Admin: 06/02/18 19:25 Dose: Not Given Documented by: [id number] Metoprolol Tartrate (Lopressor) 5 mg IV Q4 PRN PRN Reason: tachycardia Stop: 07/02/18 15:53 Last Admin: 06/03/18 05:03 Dose: 5 mg Documented by: [id number] Miscellaneous (Remove Lidoderm Patch) 1 ea N/A DAILY@2100 [facility] Stop: 07/02/18 20:59 Last Admin: 06/02/18 21:20 Dose: Not Given Documented by: [id number] Oxycodone HCl (Roxicodone Immediate Rel) 5 mg PO Q6H PRN PRN Reason: pain Stop: 06/16/18 15:53 Last Admin: 06/03/18 04:12 Dose: 5 mg Documented by: [id number] Oxycodone HCl (Oxycontin) 10 mg PO BID [facility] Stop: 06/16/18 20:59 Last Admin: 06/03/18 07:59 Dose: 10 mg Documented by: [id number] Admin: 06/02/18 21:21 Dose: 10 mg Documented by: [id number] Pantoprazole Sodium (Protonix) 40 mg PO QAM [facility] Stop: 07/03/18 08:59 Last Admin: 06/03/18 08:00 Dose: 40 mg Documented by: [id number] Sodium Chloride (Sodium Chloride) 2 gm PO BID [facility] Stop: 07/02/18 20:59 Last Admin: 06/03/18 08:00 Dose: 2 gm Documented by: [id number] Admin: 06/02/18 21:21 Dose: 2 gm Documented by: [id number] Discontinued Medications Albuterol (Duoneb) 3 ml NEB NOW STA Stop: 06/02/18 10:33 Last Admin: 06/02/18 10:41 Dose: 3 ml Documented by: [id number] Albumin Human (Albumin 25%) 50 mls @ 50 mls/hr IV Q1H [facility] Stop: 06/02/18 22:59 Last Infusion: 06/02/18 23:51 Dose: 0 mls/hr Documented by: [id number] Admin: 06/02/18 22:40 Dose: 50 mls/hr Documented by: [id number] Infusion: 06/02/18 22:40 Dose: 50 mls/hr Documented by: [id number] Admin: 06/02/18 22:00 Dose: 50 mls/hr Documented by: [id number] Lidocaine HCl (Xylocaine 1% (Local)) Confirm Administered Dose 20 ml .ROUTE .STK-MED ONE Stop: 06/02/18 17:55 Last Admin: 06/02/18 18:39 Dose: 20 ml Documented by: [id number] Morphine Sulfate (Morphine Sulfate) 4 mg IV Q15M PRN PRN Reason: Pain Stop: 06/16/18 10:28 Last Admin: 06/02/18 15:39 Dose: 4 mg Documented by: [id number] Admin: 06/02/18 10:57 Dose: 4 mg Documented by: [id number] Admin: 06/02/18 10:34 Dose: 4 mg Documented by: [id number] Ondansetron HCl (Zofran) 4 mg IV NOW STA Stop: 06/02/18 10:30 Last Admin: 06/02/18 10:33 Dose: 4 mg Documented by: [id number] Medical Decision Making Differential Diagnosis Differential diagnosis: Etiologies such as shingles, musculoskeletal pain, pericarditis, myocarditis, cardiac ischemia, pericardial tamponade, pneumonia, pneumothorax, pleural effusion, hemothorax, pleurisy, aortic pathology, pulmonary embolism, intra- abdominal process, as well as others were considered. Medical Records Attestation: I reviewed the patient's medical records. Home Medications Current Medication List: was personally reviewed by me Laboratory Data Attestation: I reviewed the patient's lab results. Result diagrams: 06/03/18 05:46 06/03/18 05:46 Lab Results 06/02/18 06/02/18 06/02/18 Range/Units 10:28 10:28 10:28 WBC 14.13 H (4.8-10.8) K/uL RBC 3.36 L (4.7-6.1) M/uL Hgb 11.2 L (14.0-18.0) g/dL Hct 31.7 L (42-52) % MCV 94.3 (80-100) fL MCH 33.3 (25-34) pg MCHC 35.3 (32-36) g/dL RDW Std Deviation 60.0 H (36.4-46.3) fL RDW Coeff of Zack 17.7 H (11.5-14.5) % Plt Count 205 (130-400) K/uL MPV 10.3 (7.4-10.4) fL Immature Gran % (Auto) 0.8 % Neut % (Auto) 72.1 % Lymph % (Auto) 14.5 % Maverick % (Auto) 10.3 % Eos % (Auto) 2.2 % Baso % (Auto) 0.1 % Immature Gran # (Auto) 0.11 H (0.00-0.02) K/uL Neut # (Auto) 10.20 H (1.4-6.5) K/uL Lymph # (Auto) 2.05 (1.2-3.4) K/uL Maverick # (Auto) 1.45 H (0.11-0.59) K/uL Eos # (Auto) 0.31 (0-0.5) K/uL Baso # (Auto) 0.01 (0-0.2) K/uL PT 12.4 H (9.0-12.0) Seconds INR 1.2 H (0.9-1.1) APTT 23.7 (21.0-31.0) Seconds PTT Ratio 0.9 VBG pH (7.36-7.41) VBG pCO2 (38-50) mmHg VBG pO2 mmHg VBG HCO3 mmol/L VBG O2 Saturation % VBG Base Excess mEq/L Barometric Pressure mm/Hg Sodium 130 L (136-145) mmol/L Potassium 5.2 H (3.5-5.1) mmol/L Chloride 97 L (98-107) mmol/L Carbon Dioxide 24 (21-32) mmol/L Anion Gap 9.0 (3-11) BUN 20 H (7-18) mg/dl Creatinine 1.03 (0.6-1.4) mg/dl Est Cr Clr Drug Dosing 85.1 ml/min Est GFR ( Amer) 86.1 Est GFR (Non-Af Amer) 74.3 BUN/Creatinine Ratio 19.6 (10-20) Glucose 102 H (70-99) mg/dl Calcium 8.8 (8.5-10.1) mg/dl Phosphorus (2.5-4.9) mg/dl Magnesium (1.8-2.4) mg/dl Total Bilirubin 1.9 H (0.2-1) mg/dl AST 61 H (15-37) U/L ALT 48 (12-78) U/L Alkaline Phosphatase 176 H (45-117) U/L Total Creatine Kinase 123 (39-308) U/L Troponin I < 0.015 (0-0.045) ng/ml NT-Pro-B Natriuret Pep (0-900) pg/ml Total Protein 6.1 L (6.4-8.2) gm/dl Albumin 2.5 L (3.4-5.0) gm/dl Globulin 3.6 (2.5-4.0) gm/dl Albumin/Globulin Ratio 0.7 L (0.9-2) Lipase 373 (73-393) U/L Specimen Hemolysis Urine Color Urine Appearance (Clear) Urine pH (4.5-7.5) Ur Specific Schneider (1.000-1.030) Urine Protein (Negative) Urine Glucose (UA) (Negative) Urine Ketones (Negative) Urine Blood (Negative) Urine Nitrite (Negative) Urine Bilirubin (Negative) Urine Urobilinogen (Negative) Ur Leukocyte Esterase (Negative) Urine WBC (Auto) (0-5) /hpf Urine RBC (Auto) (0-4) /hpf U Hyaline Cast (Auto) (0-5) /lpf U Epithel Cells (Auto) (0-5) /lpf Urine Bacteria (Auto) (Negative) Pleural Fluid Source Pleural Color Pleural Appearance Pleural WBC /uL Pleural RBC /uL Pleural Polynuclear % % Pleural Mononuclear % % Pleural Total Protein g/dl Pleural LDH U/L Pleural Glucose mg/dl Pleural Amylase U/L 06/02/18 06/02/18 06/02/18 Range/Units 10:28 11:18 16:45 WBC (4.8-10.8) K/uL RBC (4.7-6.1) M/uL Hgb (14.0-18.0) g/dL Hct (42-52) % MCV (80-100) fL MCH (25-34) pg MCHC (32-36) g/dL RDW Std Deviation (36.4-46.3) fL RDW Coeff of Zack (11.5-14.5) % Plt Count (130-400) K/uL MPV (7.4-10.4) fL Immature Gran % (Auto) % Neut % (Auto) % Lymph % (Auto) % Maverick % (Auto) % Eos % (Auto) % Baso % (Auto) % Immature Gran # (Auto) (0.00-0.02) K/uL Neut # (Auto) (1.4-6.5) K/uL Lymph # (Auto) (1.2-3.4) K/uL Maverick # (Auto) (0.11-0.59) K/uL Eos # (Auto) (0-0.5) K/uL Baso # (Auto) (0-0.2) K/uL PT (9.0-12.0) Seconds INR (0.9-1.1) APTT (21.0-31.0) Seconds PTT Ratio VBG pH 7.39 (7.36-7.41) VBG pCO2 42 (38-50) mmHg VBG pO2 41 mmHg VBG HCO3 24 mmol/L VBG O2 Saturation 73.4 % VBG Base Excess -0.6 mEq/L Barometric Pressure 729.7 mm/Hg Sodium (136-145) mmol/L Potassium (3.5-5.1) mmol/L Chloride (98-107) mmol/L Carbon Dioxide (21-32) mmol/L Anion Gap (3-11) BUN (7-18) mg/dl Creatinine (0.6-1.4) mg/dl Est Cr Clr Drug Dosing ml/min Est GFR ( Amer) Est GFR (Non-Af Amer) BUN/Creatinine Ratio (10-20) Glucose (70-99) mg/dl Calcium (8.5-10.1) mg/dl Phosphorus 3.7 (2.5-4.9) mg/dl Magnesium 2.1 (1.8-2.4) mg/dl Total Bilirubin (0.2-1) mg/dl AST (15-37) U/L ALT (12-78) U/L Alkaline Phosphatase (45-117) U/L Total Creatine Kinase (39-308) U/L Troponin I (0-0.045) ng/ml NT-Pro-B Natriuret Pep 285 (0-900) pg/ml Total Protein (6.4-8.2) gm/dl Albumin (3.4-5.0) gm/dl Globulin (2.5-4.0) gm/dl Albumin/Globulin Ratio (0.9-2) Lipase (73-393) U/L Specimen Hemolysis Urine Color Dark Yellow Urine Appearance Clear (Clear) Urine pH 5.0 (4.5-7.5) Ur Specific Schneider 1.026 (1.000-1.030) Urine Protein Negative (Negative) Urine Glucose (UA) Negative (Negative) Urine Ketones Trace H (Negative) Urine Blood Negative (Negative) Urine Nitrite Positive H (Negative) Urine Bilirubin Negative (Negative) Urine Urobilinogen Positive H (Negative) Ur Leukocyte Esterase Negative (Negative) Urine WBC (Auto) 0 (0-5) /hpf Urine RBC (Auto) 0-4 (0-4) /hpf U Hyaline Cast (Auto) 1-5 (0-5) /lpf U Epithel Cells (Auto) 0-5 (0-5) /lpf Urine Bacteria (Auto) Negative (Negative) Pleural Fluid Source Pleural Color Pleural Appearance Pleural WBC /uL Pleural RBC /uL Pleural Polynuclear % % Pleural Mononuclear % % Pleural Total Protein g/dl Pleural LDH U/L Pleural Glucose mg/dl Pleural Amylase U/L 06/02/18 06/03/18 06/03/18 Range/Units Unknown 05:46 05:46 WBC 9.39 (4.8-10.8) K/uL RBC 2.78 L (4.7-6.1) M/uL Hgb 9.1 L (14.0-18.0) g/dL Hct 26.5 L (42-52) % MCV 95.3 (80-100) fL MCH 32.7 (25-34) pg MCHC 34.3 (32-36) g/dL RDW Std Deviation 60.0 H (36.4-46.3) fL RDW Coeff of Zack 17.6 H (11.5-14.5) % Plt Count 157 (130-400) K/uL MPV 9.7 (7.4-10.4) fL Immature Gran % (Auto) 0.3 % Neut % (Auto) 74.4 % Lymph % (Auto) 13.4 % Maverick % (Auto) 10.4 % Eos % (Auto) 1.4 % Baso % (Auto) 0.1 % Immature Gran # (Auto) 0.03 H (0.00-0.02) K/uL Neut # (Auto) 6.98 H (1.4-6.5) K/uL Lymph # (Auto) 1.26 (1.2-3.4) K/uL Maverick # (Auto) 0.98 H (0.11-0.59) K/uL Eos # (Auto) 0.13 (0-0.5) K/uL Baso # (Auto) 0.01 (0-0.2) K/uL PT (9.0-12.0) Seconds INR (0.9-1.1) APTT (21.0-31.0) Seconds PTT Ratio VBG pH (7.36-7.41) VBG pCO2 (38-50) mmHg VBG pO2 mmHg VBG HCO3 mmol/L VBG O2 Saturation % VBG Base Excess mEq/L Barometric Pressure mm/Hg Sodium 130 L (136-145) mmol/L Potassium 5.4 H (3.5-5.1) mmol/L Chloride 97 L (98-107) mmol/L Carbon Dioxide 28 (21-32) mmol/L Anion Gap 5.0 (3-11) BUN 25 H (7-18) mg/dl Creatinine 1.09 (0.6-1.4) mg/dl Est Cr Clr Drug Dosing 80.4 ml/min Est GFR ( Amer) 80.4 Est GFR (Non-Af Amer) 69.4 BUN/Creatinine Ratio 22.6 H (10-20) Glucose 108 H (70-99) mg/dl Calcium 8.3 L (8.5-10.1) mg/dl Phosphorus (2.5-4.9) mg/dl Magnesium (1.8-2.4) mg/dl Total Bilirubin (0.2-1) mg/dl AST (15-37) U/L ALT (12-78) U/L Alkaline Phosphatase (45-117) U/L Total Creatine Kinase (39-308) U/L Troponin I (0-0.045) ng/ml NT-Pro-B Natriuret Pep (0-900) pg/ml Total Protein (6.4-8.2) gm/dl Albumin (3.4-5.0) gm/dl Globulin (2.5-4.0) gm/dl Albumin/Globulin Ratio (0.9-2) Lipase (73-393) U/L Specimen Hemolysis Urine Color Urine Appearance (Clear) Urine pH (4.5-7.5) Ur Specific Schneider (1.000-1.030) Urine Protein (Negative) Urine Glucose (UA) (Negative) Urine Ketones (Negative) Urine Blood (Negative) Urine Nitrite (Negative) Urine Bilirubin (Negative) Urine Urobilinogen (Negative) Ur Leukocyte Esterase (Negative) Urine WBC (Auto) (0-5) /hpf Urine RBC (Auto) (0-4) /hpf U Hyaline Cast (Auto) (0-5) /lpf U Epithel Cells (Auto) (0-5) /lpf Urine Bacteria (Auto) (Negative) Pleural Fluid Source RIGHT LUNG Pleural Color RED Pleural Appearance BLOODY Pleural WBC 1895 /uL Pleural RBC 203469 /uL Pleural Polynuclear % 66.8 % Pleural Mononuclear % 33.2 % Pleural Total Protein 1.6 g/dl Pleural LDH 294 U/L Pleural Glucose 83 mg/dl Pleural Amylase 28 U/L Imaging Data Radiologist's Impression: Radiology results as stated below per my review and the radiologist's interpretation: XR chest 1V portable CLINICAL HISTORY: Chest Pain dyspnea COMPARISON STUDY: 05/22/2018 FINDINGS: Stable cardiomegaly. Reaccumulation of a small right pleural effusion. Several old right-sided rib fractures are noted. These appear displaced. No evidence pneumothorax. Left lung is clear. IMPRESSION: 1. Moderate stable cardia megaly. 2. Slight increase in volume of right effusion. 3. Several lower right displaced rib fractures . These were not identified on the rib series dated 05/15/2018, and may be an acute to subacute finding. The above report was generated using voice recognition software. It may contain grammatical, syntax or spelling errors. Electronically signed by: Samson Carlton M.D. 06/02/2018 11:01 AM ECG Data Attestation: I personally reviewed and interpreted this ECG as follows: Indication: chest pain Rate (beats per minute): 134 Rhythm: atrial fibrillation (with RVR) Findings: + ST depression (diffuse); no PVC Comparison ECG Date: from (05/21/18) Change: no significant change Blood Pressure Blood Pressure Findings: Normal blood pressure MDM Narrative The patient is a 67-year-old male who presented to the emergency department for an evaluation of chest pain. The patient was given aspirin and nitroglycerin prior to arrival although the patient's pain was very reproducible. He has a history of recently diagnosed rib fractures. I reviewed the patient's recent history does reveal that I initially evaluated this patient when he presented with chest chest wall pain. At that time rib x-rays were negative. He did return to our facility and was found to have very significant rib fractures which were displaced. At that time he also had a chest wall hematoma. He does not currently take anticoagulation but does have a history of cirrhosis. Patient was treated with pain medication in the emergency department. He appears to have a reaccumulation of a pleural effusion which could be related to hemothorax. I discussed patient's laboratory and radiographic studies with him. I also discussed his case with the thoracic surgeon who is familiar with the patient as well as the on-call [facility] team. The patient was reevaluated multiple times. He was treated with a DuoNeb. His oxygen saturation is normal at this time and he is feeling much better. Impression & Plan Chest pain, Multiple fractures of ribs, Hemothorax, Respiratory distress Discharge Plan Visit Data *Final* Discharge Date/Time: 06/02/18 15:28 Chief Complaint: Chest Pain ED Provider: Anselmo Chao Discharge Problem: Chest pain, Multiple fractures of ribs, Hemothorax, Respiratory distress Patient Disposition: Admitted As Inpatient Discharge Instructions Interventions: ED Discharge Assessment Last Done: 06/02/18 15:28 Discharge Problem: Chest pain Qualifiers: Chest pain type: unspecified Qualified Code(s): R07.9 - Chest pain, unspecified Multiple fractures of ribs Qualifiers: Encounter type: initial encounter Fracture type: closed Laterality: right Qualified Code(s): S22.41XA - Multiple fractures of ribs, right side, initial encounter for closed fracture The scribe's documentation has been prepared under my direction and personally reviewed by me in its entirety. I confirm that the note above accurately reflects all work, treatment, procedures, and medical decision making performed by me.
--- NOTE | 2018-06-02 11:02 | XRay Report ---
XR chest 1V portable CLINICAL HISTORY: Chest Pain dyspnea COMPARISON STUDY: 05/22/2018 FINDINGS: Stable cardiomegaly. Reaccumulation of a small right pleural effusion. Several old right-si ded rib fractures are noted. These appear displaced. No evidence pneumothorax. Left lung is clear. IMPRESSION: 1. Moderate stable cardia megaly. 2. Slight increase in volume of right effusion. 3. Several lower right displaced rib fractures . These were not identified on the rib series dated 05/15/2018, and may be an acute to subacute finding. The above report was generated using voice recognition software. It may contain grammatical, syntax or spelling errors. Electronically signed by: Samson Carlton M.D. 06/02/2018 11:01 AM
[2018-06-02 11:12] LABS: Alanine Aminotransferase 48 U/L (12-78); Albumin Globulin Ratio 0.7 (0.9-2); Albumin Level 2.5 gm/dl (3.4-5.0); Alkaline Phosphatase 176 U/L (45-117); Aspartate Aminotransferase 61 U/L (15-37); BUN Creatinine Ratio 19.6 (10-20); Bilirubin,Total 1.9 mg/dl (0.2-1); Blood Urea Nitrogen 20 mg/dl (7-18); Calcium 8.8 mg/dl (8.5-10.1); Carbon Dioxide 24 mmol/L (21-32); Chloride 97 mmol/L (98-107); Creatine Kinase 123 U/L (39-308); Creatinine Clr Calc Pharmacy 85.1 ml/min; Est GFR (African American) 86.1; Est GFR (Non-African American) 74.3; Globulin 3.6 gm/dl (2.5-4.0); Glucose 102 mg/dl (70-99); Potassium 5.2 mmol/L (3.5-5.1); Sodium 130 mmol/L (136-145); Total Protein 6.1 gm/dl (6.4-8.2); Troponin I < 0.015 ng/ml (0-0.045)
[2018-06-02 11:33] LABS: Base Excess VBG -0.6 mEq/L; Oxygen Saturation VBG 73.4 %; pH VBG 7.39 (7.36-7.41)
--- NOTE | 2018-06-02 13:36 | History & Physical Report ---
Date of Service June 02, 2018 Assessment & Plan (1) Pleural effusion, right: Patient with recurrent right sided pleural effusion, s/p thoracentesis on 05/22 with 350mL bloody fluid removed. Possibly traumatic in setting of multiple rib fractures. Patient with significant pain, tachypnea, requiring minimal O2 to maintain saturations. Patient also with significant anasarca h/o cirrhosis and CHF, ?recurrence of hemothorax vs other fluid accumulation. -Admit to PCU -Supplemental O2 a needed to maintain sats 92% -Continuous pulse oximetry -Thoracic Surgery has been consulted and plan to perform thoracentesis vs drain -Will keep patient NPO, hold DVT ppx for now Present on Admission?: Yes (2) Multiple fractures of ribs: Patient with fractures of ribs 7-10 mid-axillary line, diagnosed by CT during last hospital admission. Possibly secondary to severe coughing in setting of recent PNA/bronchitis. Significant pain -Continue Oxycontin 10mg po BID -Continue Oxycodone 5mg po q 6 hours -Morphine 2mg IV q 2 hours PRN, may need to increase this dosage -Lidoderm patch -Bowel regimen, Colace and Miralax PRN -Incentive spirometry q2h while awake (3) Cirrhosis: Patient with history of liver cirrhosis thought to be secondary to EtOH abuse. Child Class B, MELD score =11. MRI performed on 01/11/18 with two lesions suspicious for HCC. AFP level on 04/29/18 was 22.8 (relatively stable, was 27.9 on 07/23/17 and 18.9 on 01/18/18). Patient reports that he follows with Dr. Petty for this and has been doing well. Patient with anasarca today. Patient has been on multiple courses of Prednisone over the past month which is most likely contributing to fluid retention. Is not encephalopathic, does not appear to have significant ascites, liver labs are essentially unchanged from prior. Do not suspect decompensated cirrhosis. Weight is 120kg, was 136kg on discharge but patient reports appx 15 pound gain over the last 2 weeks. Mildly elevated K at 5.2. -Will give Lasix 40mg IV daily -Continue Spironolactone 50mg po BID -Low Na/CC diet after thoracentesis is complete -Daily weights -Repeal LFTs in AM -Hold PO K supplementation -BMP in AM Present on Admission?: Yes (4) COPD (chronic obstructive pulmonary disease): Patient with COPD, +diffuse wheezing noted on exam. On minimal O2 at present -Supplemental O2 PRN to maintain sats 92% -DuoNebs q 6 hours -Albuterol q 2 hours PRN -Will not continue steroids at this time (5) Hypertension: Blood pressure well controlled at present -Continue Atenolol -Diuretics as above -Continue to monitor (6) Rapid atrial fibrillation: Patient with history of AF . Tachycardic today at 118. Most likely secondary to pain, mild hypoxia as well -Treatment of pain as above, supplemental O2 -Possible thoracentesis per CT Surgery -Continue Atenolol BID -Metoprolol 5mg IV q 4h PRN HR > 110 -Telemetry monitoring Present on Admission?: Yes (7) Hyponatremia: Sl=864. Near baseline. Patient is on salt tablets at home. -Continue salt tablets -Continue Lasix and Spironolactone -Fluid restriction -BMP q AM Present on Admission?: Yes (8) Abdominal wall contusion: H/H stable. Patient with significant abdominal pain -Pain control as above -CT Abd/Pelvis F/E/N - Lasix 40mg IV daily, Spironolactone 100mg daily, monitor BMP daily, replete electrolytes as needed, NPO for now for possible procedure, will advance diet when able to Low Na Ppx - low risk Code -Full per discussion with patient Dispo - PCU History of Present Illness Chief Complaint: Chest pain Primary Care Provider: Erma Santos MD Mr. Zarco is a 67yo C male with multiple medical problems to include liver cirrhosis secondary to EtOH and steatohepatitis, HTN, COPD, AF and CHF. Patient was initially diagnosed with PNA of the LLL in the outpatient setting on 05/11/18. He was treated with steroids and antibiotics. He was seen in the ER at [facility] on 05/15/18 with complaint of shortness of breath as well as right sided pain with coughing. He was given a DuoNeb in the ER. CT of the chest was performed which was negative for PNA, CHF or PE, no fractures or clear explanation for pain. He was discharged home with Prednisone 20mg po x 5 days, Tylenol and Albuterol PRN. He returned to the ER on 05/16/18 with complaint of right side pain. He had rib imaging which was negative for fracture or pneumothorax. He was discharged home with Oxycodone as needed for rib pain. He returned to the ER on 05/21/18 with worsening of the right sided chest pain that was unrelieved by Oxycodone. CT of the chest was done at that time which showed multiple right sided rib fractures - 7-10, midaxillary line as well as anasarca, right lateral chest wall hematoma 9x2 cm, right pleural effusion with atelectasis and a stable cirrhotic liver. The patient was admitted to the hospital. He was evaluated by Pulmonary and had a therapeutic thoracentesis performed on 05/22/18 in which 350mL of bloody fluid was removed. Pleural fluid was bloody, pH 7.35, fjz=632, KIE=411, Protein=1.9. Negative growth for acid- fast bacilli, gram stain/aerobic and anaerobic cultures. Patient was discharged home in stable condition on 05/24/18 with Oxycodone 10mg po q12 and Oxycontin 5mg po q6 PRN and Lidoderm patches as well. Also discharged on rapid Prednisone taper. Patient reports that he was doing fairly well, although still with significant pain in the right side. He reports taking Oxycodone BID and OxyIR q 6 hours with marginal pain control. This AM around 09:00 he developed severe right sided chest pain while sitting and watching TV. Pain is stabbing in nature, pleuritic, 10/10 in severity. Non-radiating. On arrival to the ER he was in AF, tachycardic at 123bpm, RR of 32, saturating 94% on room air. CXR suggestive of reaccumulation of right pleuritic fluid. The patient was evaluated by Dr. Slater of CT Surgery who plans for a thoracentesis later today. Patient with complaint of SOB, palpitations, abdominal pain and constipation. Additionally he reports gaining appx 15# over the last two weeks, increase in bilateral LE edema and abdominal wall edema. He reports compliance with home medications. No additional complaints at this time. ER Coures: Albuterol, Morphine 4mg IV, Zofran 4mg IV Allergies Allergy/AdvReac Type Severity Reaction Status Date / Time No Known Allergies Allergy Verified 06/02/18 10:50 Home Medications Home Medications Medication Instructions Recorded Confirmed Type atenolol 100 mg PO BID 01/06/18 06/02/18 History folic acid 7 mg PO QAM 01/06/18 06/02/18 History furosemide 40 mg PO QAM 01/06/18 06/02/18 History potassium chloride 20 mg PO QID 01/06/18 06/02/18 History umeclidinium-vilanterol [Anoro 1 puff INHALATION QAM 01/06/18 06/02/18 History Ellipta] pantoprazole 40 mg PO QAM 05/15/18 06/02/18 History albuterol sulfate 2 puff INH Q6H PRN 05/21/18 06/02/18 History ergocalciferol (vitamin D2) 50,000 unit PO WK 05/21/18 06/02/18 History [Vitamin D2] oxycodone 5 mg PO Q6H PRN 20 Days #40 tab 05/24/18 06/02/18 Rx oxycodone [OxyContin] 10 mg PO Q12 PRN 06/02/18 06/02/18 History prednisone 10 mg PO QAM 06/02/18 06/02/18 History sodium chloride 2 g PO BID 06/02/18 06/02/18 History spironolactone 50 mg PO BID 06/02/18 06/02/18 History Past Med/Surg History Medical History Ascites (Acute) Asthmatic bronchitis (Acute) Cellulitis of leg Chest pain (Acute) Claudication (Acute) GI bleed (Resolved) Hyponatremia (Acute) Hypoxia (Acute) Rapid atrial fibrillation (Acute) CHF (congestive heart failure) COPD (chronic obstructive pulmonary disease) Hypertension Surgical History History of thoracentesis Family History Other Family history non-contributory Social History Preferred Language: [place] Citizen Communication Ability: Effective Visual Impairment: No Limitations Hearing Ability: Normal Data Designer Required: No Beliefs That Will Affect Care: None marital status: Current Living Situation: Spouse current occupational status: retired Other Information That Helps Us Care for You: No Feels Safe at Home: Yes Safety Concerns: Feels Safe At This Time Smoking Status: Current every day smoker Tobacco Type: cigarettes Cigarettes Per Day: 20 Tobacco Cessation Education Requested by Patient: No Hx Alcohol Use: No Hx Substance Use: No Review of Systems Review of Systems: All systems reviewed & are unremarkable except as noted in HPI & below Physical Exam Physical Exam: General: patient in mild distress secondary to pain, ill in appearance, AA&O x 4, severe discomfort with movement and repositioning Skin: warm, dry, intact, scattered ecchymoses on bilateral forearms, skin on bilateral LE thickened and darkened, no evidence of acute infection, significant ecchymosis at right mid-axillary line and lower abdomen/periumbilical HEENT: NC/AT, PERRL, EOMI, anicteric sclera, conjunctiva without injection, external ear normal to inspection and nontender, nares patent, moist mucus membranes, dentition intact, no oropharyngeal lesions, neck supple, trachea midline, no LAD, no thyromegaly, JVD difficult to assess secondary to body habitus Heart: +S1/S2, irregularly irregular, tachycardic at 118bpm, no m/r/g Lungs: equal air entry bilaterally, diffuse wheezing in bilateral lung moore, diminished breath sounds in right base Abd: obese, +BS, soft, tender to palpation in lower abdomen, no appreciable masses/organomegaly, ecchymosis as above. Ext: warm, 2+ pulses in UE/LE bilaterally, 3+ pitting edema of bilateral LE to abdominal wall Neuro: nonfocal, patient AA&O x 4, speech intact, no facial droop, moving all extremities on command with equal strength 5/5 Results & Data Vital Signs (Past 12 Hours) Vital Signs Pulse Resp BP Pulse Ox 06/02/18 12:10 118 H 30 H 110/66 95 06/02/18 10:59 128 H 32 H 105/88 92 06/02/18 10:36 94 06/02/18 10:17 123 H 20 109/78 95 Laboratory Results Lab Results 06/02/18 06/02/18 06/02/18 Range/Units 10:28 10:28 10:28 WBC 14.13 H (4.8-10.8) K/uL RBC 3.36 L (4.7-6.1) M/uL Hgb 11.2 L (14.0-18.0) g/dL Hct 31.7 L (42-52) % MCV 94.3 (80-100) fL MCH 33.3 (25-34) pg MCHC 35.3 (32-36) g/dL RDW Std Deviation 60.0 H (36.4-46.3) fL RDW Coeff of Zack 17.7 H (11.5-14.5) % Plt Count 205 (130-400) K/uL MPV 10.3 (7.4-10.4) fL Immature Gran % (Auto) 0.8 % Neut % (Auto) 72.1 % Lymph % (Auto) 14.5 % [place] % (Auto) 10.3 % Eos % (Auto) 2.2 % Baso % (Auto) 0.1 % Immature Gran # (Auto) 0.11 H (0.00-0.02) K/uL Neut # (Auto) 10.20 H (1.4-6.5) K/uL Lymph # (Auto) 2.05 (1.2-3.4) K/uL [place] # (Auto) 1.45 H (0.11-0.59) K/uL Eos # (Auto) 0.31 (0-0.5) K/uL Baso # (Auto) 0.01 (0-0.2) K/uL PT 12.4 H (9.0-12.0) Seconds INR 1.2 H (0.9-1.1) APTT 23.7 (21.0-31.0) Seconds PTT Ratio 0.9 VBG pH (7.36-7.41) VBG pCO2 (38-50) mmHg VBG pO2 mmHg VBG HCO3 mmol/L VBG O2 Saturation % VBG Base Excess mEq/L Barometric Pressure mm/Hg Sodium 130 L (136-145) mmol/L Potassium 5.2 H (3.5-5.1) mmol/L Chloride 97 L (98-107) mmol/L Carbon Dioxide 24 (21-32) mmol/L Anion Gap 9.0 (3-11) BUN 20 H (7-18) mg/dl Creatinine 1.03 (0.6-1.4) mg/dl Est Cr Clr Drug Dosing 85.1 ml/min Est GFR ( Amer) 86.1 Est GFR (Non-Af Amer) 74.3 BUN/Creatinine Ratio 19.6 (10-20) Glucose 102 H (70-99) mg/dl Calcium 8.8 (8.5-10.1) mg/dl Total Bilirubin 1.9 H (0.2-1) mg/dl AST 61 H (15-37) U/L ALT 48 (12-78) U/L Alkaline Phosphatase 176 H (45-117) U/L Total Creatine Kinase 123 (39-308) U/L Troponin I < 0.015 (0-0.045) ng/ml Total Protein 6.1 L (6.4-8.2) gm/dl Albumin 2.5 L (3.4-5.0) gm/dl Globulin 3.6 (2.5-4.0) gm/dl Albumin/Globulin Ratio 0.7 L (0.9-2) Lipase 373 (73-393) U/L Specimen Hemolysis 06/02/18 Range/Units 11:18 WBC (4.8-10.8) K/uL RBC (4.7-6.1) M/uL Hgb (14.0-18.0) g/dL Hct (42-52) % MCV (80-100) fL MCH (25-34) pg MCHC (32-36) g/dL RDW Std Deviation (36.4-46.3) fL RDW Coeff of Zack (11.5-14.5) % Plt Count (130-400) K/uL MPV (7.4-10.4) fL Immature Gran % (Auto) % Neut % (Auto) % Lymph % (Auto) % [place] % (Auto) % Eos % (Auto) % Baso % (Auto) % Immature Gran # (Auto) (0.00-0.02) K/uL Neut # (Auto) (1.4-6.5) K/uL Lymph # (Auto) (1.2-3.4) K/uL [place] # (Auto) (0.11-0.59) K/uL Eos # (Auto) (0-0.5) K/uL Baso # (Auto) (0-0.2) K/uL PT (9.0-12.0) Seconds INR (0.9-1.1) APTT (21.0-31.0) Seconds PTT Ratio VBG pH 7.39 (7.36-7.41) VBG pCO2 42 (38-50) mmHg VBG pO2 41 mmHg VBG HCO3 24 mmol/L VBG O2 Saturation 73.4 % VBG Base Excess -0.6 mEq/L Barometric Pressure 729.7 mm/Hg Sodium (136-145) mmol/L Potassium (3.5-5.1) mmol/L Chloride (98-107) mmol/L Carbon Dioxide (21-32) mmol/L Anion Gap (3-11) BUN (7-18) mg/dl Creatinine (0.6-1.4) mg/dl Est Cr Clr Drug Dosing ml/min Est GFR ( Amer) Est GFR (Non-Af Amer) BUN/Creatinine Ratio (10-20) Glucose (70-99) mg/dl Calcium (8.5-10.1) mg/dl Total Bilirubin (0.2-1) mg/dl AST (15-37) U/L ALT (12-78) U/L Alkaline Phosphatase (45-117) U/L Total Creatine Kinase (39-308) U/L Troponin I (0-0.045) ng/ml Total Protein (6.4-8.2) gm/dl Albumin (3.4-5.0) gm/dl Globulin (2.5-4.0) gm/dl Albumin/Globulin Ratio (0.9-2) Lipase (73-393) U/L Specimen Hemolysis Diagnostic Findings XR chest 1V portable CLINICAL HISTORY: Chest Pain dyspnea COMPARISON STUDY: 05/22/2018 FINDINGS: Stable cardiomegaly. Reaccumulation of a small right pleural effusion. Several old right-sided rib fractures are noted. These appear displaced. No evidence pneumothorax. Left lung is clear. IMPRESSION: 1. Moderate stable cardia megaly. 2. Slight increase in volume of right effusion. 3. Several lower right displaced rib fractures . These were not identified on the rib series dated 05/15/2018, and may be an acute to subacute finding. The above report was generated using voice recognition software. It may contain grammatical, syntax or spelling errors. Electronically signed by: Samson Carlton M.D. 06/02/2018 11:01 AM Dictated: 06/02/18 1059 ECG Additional Comments: EKG with atrial fibrillation at 134 bpm, normal axis, QRS=78, AYx=023, no acute ischemic changes Code Status & VTE Plan Code Status FULL VTE Prophylaxis Plan VTE Prophylaxis will be ordered: No Critical Care Time Critical Care Time: No (1) Multiple fractures of ribs Encounter type: initial encounter Fracture type: closed Laterality: right Qualified Code(s): S22.41XA - Multiple fractures of ribs, right side, initial encounter for closed fracture (2) Cirrhosis Hepatic cirrhosis type: alcoholic cirrhosis Ascites presence: with ascites Qualified Code(s): K70.31 - Alcoholic cirrhosis of liver with ascites (3) COPD (chronic obstructive pulmonary disease) COPD type: unspecified COPD Qualified Code(s): J44.9 - Chronic obstructive pulmonary disease, unspecified (4) Hypertension Hypertension type: essential hypertension Qualified Code(s): I10 - Essential (primary) hypertension (5) Abdominal wall contusion Encounter type: initial encounter Qualified Code(s): S30.1XXA - Contusion of abdominal wall, initial encounter
[2018-06-02] MEDS ORDERED: ACETAMINOPHEN 325 MG TAB PO PRN (15:54)
[2018-06-02] MEDS ORDERED: DOCUSATE SODIUM 100 MG CAP PO PRN (15:54)
[2018-06-02] MEDS ORDERED: POLYETHYLENE (MIRALAX) 17 GM PACK PO PRN (15:54)
[2018-06-02] MEDS ORDERED: ONDANSETRON INJ 2 MG/ML 2 ML VIAL IV PRN (15:54)
[2018-06-02] MEDS: ALBUT/IPRATROP 3MG/0.5MG NEB 3 ML VIAL NEB SCH ×2 (16:20→19:20)
[2018-06-02] MEDS: FUROSEMIDE 40 MG in SYRINGE 0 ML IV SCH (16:44)
[2018-06-02 16:50] LABS: Magnesium 2.1 mg/dl (1.8-2.4); Phosphorus 3.7 mg/dl (2.5-4.9)
[2018-06-02 17:42] LABS: Appearance Urine Clear (Clear); Bacteria Urine Automated Negative (Negative); Blood Urine Negative (Negative); Color Urine Dark Yellow; Epithelial Cell Urine Auto 0-5 /lpf (0-5); Glucose Urine UA Negative (Negative); Ketones Urine Trace (Negative); Leukocyte Esterase Urine Negative (Negative); Nitrite Urine Positive (Negative); Protein Urine Negative (Negative); RBC Urine Automated 0-4 /hpf (0-4); Specific Gravity Urine 1.026 (1.000-1.030); Urobilinogen Urine Positive (Negative); WBC Urine Automated 0 /hpf (0-5)
[2018-06-02 17:50] LABS: Bilirubin Urine Negative (Negative); Ictotest Urine Negative (Negative)
[2018-06-02] MEDS ORDERED: LIDOCAINE HCL 1% 20 ML VIAL ONE (17:54)
[2018-06-02 19:17] LABS: Appearance Pleural Fluid BLOODY; Color Pleural Fluid RED; Mononuclear WBC Pleural 33.2 %; Polynuclear WBC Pleural 66.8 %; RBC Pleural Fluid (A) 747000 /uL; Source Pleural Fluid RIGHT LUNG; WBC Pleural Fluid (A) 1895 /uL
[2018-06-02 19:20] LABS: Glucose Pleural Fluid 83 mg/dl
[2018-06-02] MEDS: BENZONATATE 100 MG CAPSULE PO SCH ×2 (19:24→21:21)
[2018-06-02] MEDS: LIDOCAINE 5% 1 PATCH TD SCH (19:25)
[2018-06-02 19:27] LABS: Amylase Pleural Fluid 28 U/L; LDH Pleural Fluid 294 U/L; Total Protein Pleural Fluid 1.6 g/dl
--- NOTE | 2018-06-02 19:32 | XRay Report ---
XR chest 1V portable HISTORY: right thoracentesis COMPARISON: Chest 06/02/2018. FINDINGS: There is again noted a right-sided pleural effusion. This is likely similar in volume to th e prior study with decrease in the basilar component and slight increase in the apical and medial com ponent. Multiple displaced right-sided rib fractures are again noted. The left lung is clear. The hea rt remains mildly enlarged. No definite pneumothorax. IMPRESSION: 1. Moderate right pleural effusion is again noted. This is likely similar in volume with slight decre ase in the basilar component and increase in the apical and medial component suggesting a partially l oculated effusion. 2. No pneumothorax.. 3. Multiple displaced right-sided rib fractures are again noted. Electronically signed by: Alek Roblero M.D. 06/02/2018 7:30 PM
[2018-06-02] MEDS: cefTRIAXone SODIUM 2,000 MG in DEXTROSE 5% 50 ML IV SCH (21:19)
[2018-06-02] MEDS: OXYCODONE HCL 10 MG TABCR (OXYCONTIN) PO SCH (21:21)
[2018-06-02] MEDS: SODIUM CHLORIDE 1 GM TABLET PO SCH (21:21)
[2018-06-02] MEDS: ALBUMIN 25% 50 ML IV SCH ×2 (22:00→22:40)
[2018-06-02] MEDS: ATENOLOL 50 MG TABLET PO SCH (23:47)
--- NOTE | 2018-06-03 02:54 | Consultation Report ---
DATE OF CONSULTATION: 06/02/2018 REASON FOR CONSULTATION: Recurrent right pleural effusion. HISTORY OF PRESENT ILLNESS: This patient is a 67-year-old morbidly obese male who suffers from cirrhosis, recurrent bronchitis, history of congestive heart failure, atrial fibrillation, chronic obstructive pulmonary disease and obesity who does have a history of drinking alcohol. The patient was admitted on 05/21/2018 and was found to have a right pleural effusion and underwent a thoracentesis. This is actually an exudate with an LDH of 407. All growth was negative, but unfortunately he did not have a cytology back. At any rate, the patient denied trauma, but had a hematoma of his right lateral chest and also has ecchymosis in his periumbilical and right flank area although he denies trauma. I saw him in the Emergency Room. He is quite short of breath. He is quite tachypneic despite the fact he has relatively good saturations on 3 liters at 98%. His bilirubin is up to 1.9 with AST of 61 and alkaline phosphatase of 176. His BUN and creatinine are 20 and 1.03 respectively. His chest x-ray shows he has had a markedly increased right pleural effusion. I was asked to evaluate him from a thoracic surgery standpoint for this pleural effusion. PAST MEDICAL HISTORY: See history of present illness. PAST SURGICAL HISTORY: History of foot surgery. ALLERGIES: No known drug allergies. MEDICATIONS: Please see list but includes no anticoagulants. SOCIAL HISTORY: The patient lives with significant other. He states he really does not drink now. He does not use tobacco. FAMILY HISTORY: Noncontributory. REVIEW OF SYSTEMS: He is quite short of breath. He has evidence of anasarca. In addition, he has been voiding much less. Rest of his review of systems were unremarkable. PHYSICAL EXAMINATION: GENERAL: This is a very plethoric appearing, 5 feet 7, 260-pound male who appears to be struggling a bit to breathe. HEENT: Extraocular movements are intact. His sclerae are anicteric. His tongue is midline. His oral mucosa is actually moist. NECK: Thick. I detect no carotid bruits. He really did not have any lymphadenopathy. I do not really appreciate neck vein distention. ABDOMEN: He does have tenderness along his right chest. He has got ecchymosis particularly in the periumbilical area and it almost appears to be small veins which are visible. He has mild abdominal tenderness. I really do not appreciate ascites, but his abdomen is very large. He has anasarca with weeping of fluid from the left side of his abdomen for some superficial excoriations. He has ecchymosis along his right flank. Abdomen is tender to palpation. LUNGS: He has decreased breath sounds bilaterally, but more on the left than the right. HEART: Irregularly irregular rhythm of his heart about 110 beats per minute. EXTREMITIES: I can palpate pedal pulses, but he has 3+ edema of his pretibial and pedal area. NEUROLOGIC: I do not detect asterixis. He is awake and alert, but anxious. ASSESSMENT AND PLAN: Recurrent right pleural effusion. I am going to perform a thoracentesis later today after he is admitted.
--- NOTE | 2018-06-03 03:08 | Operative Report ---
DATE OF OPERATION: 06/02/2018 PREOPERATIVE DIAGNOSIS: Recurrent right pleural effusion. POSTOPERATIVE DIAGNOSIS: Recurrent right pleural effusion. PROCEDURE PERFORMED: Right thoracentesis under ultrasound guidance. SURGEON: Patel Slater MD TRANSLATOR DEAF: None. ANESTHESIA: Local. SPECIFICS OF PROCEDURE: With the patient in the upright position, an ultrasound was used to find a window into his back. This was a bit difficult as he has a large hematoma and he is a huge man with anasarca. I was able to see a window and after appropriate timeout had been called, I prepped his skin and draped him. Then I used 25-gauge needle and anesthetized skin and subcutaneous tissue. I used a large bore needle to enter the patient's pleural cavity and we got free flowing bloody fluid which was nonclotting and dark. A guidewire was inserted through the needle and the needle removed. A triple lumen catheter was slid over the guidewire and the guidewire removed and 600 mL of a dark bloody nonclotting effusion was drained. He had some reexpansion coughing and we stopped. I removed the catheter and placed a stitch to keep him from bleeding. This was a 2-0 silk suture. An antimicrobial dressing was placed. He tolerated it well. Chest x-ray showed no evidence of pneumothorax. He had some improvement in his x-ray. He tolerated it well. I attest to the content of the Intraoperative Record and any orders documented therein. Any exception s are noted below.
[2018-06-03] MEDS: OXYCODONE HCL IR 5 MG TAB (IMMEDIATE RELEASE) PO PRN ×3 (04:12→23:32)
[2018-06-03] MEDS: METOPROLOL TARTRATE 1 MG/ML VIAL IV PRN ×2 (05:03→23:31)
[2018-06-03 05:55] LABS: Basophils # (auto) 0.01 K/uL (0-0.2); Basophils % (auto) 0.1 %; Eosinophils # (auto) 0.13 K/uL (0-0.5); Eosinophils % (auto) 1.4 %; Hematocrit (blood only) 26.5 % (42-52); Hemoglobin 9.1 g/dL (14.0-18.0); Immature Granulocytes # (auto) 0.03 K/uL (0.00-0.02); Immature Granulocytes % (auto) 0.3 %; Lymphocytes # (auto) 1.26 K/uL (1.2-3.4); Lymphocytes % (auto) 13.4 %; Mean Corpuscular Hgb Conc 34.3 g/dL (32-36); Mean Corpuscular Volume 95.3 fL (80-100); Mean Platelet Volume 9.7 fL (7.4-10.4); Monocytes # (auto) 0.98 K/uL (0.11-0.59); Monocytes % (auto) 10.4 %; Neutrophils # (auto) 6.98 K/uL (1.4-6.5); Neutrophils % (auto) 74.4 %; Platelet Count 157 K/uL (130-400); RDW Coefficient of Variation 17.6 % (11.5-14.5); Red Blood Count 2.78 M/uL (4.7-6.1); White Blood Count 9.39 K/uL (4.8-10.8)
[2018-06-03 06:31] LABS: BUN Creatinine Ratio 22.6 (10-20); Calcium 8.3 mg/dl (8.5-10.1); Creatinine Clr Calc Pharmacy 80.4 ml/min; Est GFR (African American) 80.4; Est GFR (Non-African American) 69.4; Potassium 5.4 mmol/L (3.5-5.1)
[2018-06-03] MEDS: ALBUT/IPRATROP 3MG/0.5MG NEB 3 ML VIAL NEB SCH ×4 (07:13→18:46)
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
[2018-06-03] MEDS: ATENOLOL 50 MG TABLET PO SCH ×2 (07:59→21:04)
[2018-06-03] MEDS: OXYCODONE HCL 10 MG TABCR (OXYCONTIN) PO SCH ×2 (07:59→21:03)
[2018-06-03] MEDS: PANTOprazole 40 MG TAB PO SCH (08:00)
[2018-06-03] MEDS: SODIUM CHLORIDE 1 GM TABLET PO SCH (08:00)
[2018-06-03] MEDS: FUROSEMIDE 40 MG in SYRINGE 0 ML IV SCH (08:00)
[2018-06-03] MEDS: BENZONATATE 100 MG CAPSULE PO SCH ×3 (08:00→21:05)
[2018-06-03] MEDS: FOLIC ACID 1 MG TAB PO SCH (08:01)
[2018-06-03] MEDS: LIDOCAINE 5% 1 PATCH TD SCH (08:02)
[2018-06-03] MEDS: MoRPHine SULFATE 2 MG/ML CARP IV PRN ×2 (09:41→12:51)
[2018-06-03] MEDS: POLYETHYLENE (MIRALAX) 17 GM PACK PO SCH (10:34)
--- NOTE | 2018-06-03 12:36 | CT Scan Report ---
CT abd pelvis wo con CLINICAL HISTORY: 67 years-old Male presenting with hematoma, right-sided pain. TECHNIQUE: Multidetector CT of the abdomen and pelvis was performed without the use of intravenous co ntrast. IV contrast: None. One or more dose lowering techniques were used consistent with the princip les of ALA (as low as reasonably achievable), including automatic exposure control, mA or kV adjust ment to individual patient size, and/or use of iterative reconstruction. COMPARISON: 05/21/2018. CT DOSE (mGy.cm): The estimated cumulative dose is 1739.07 mGy.cm. FINDINGS: Assembler topogram: Unremarkable. Lung bases: Normal heart size. Coronary artery calcification. Moderate right pleural effusion with ex tensive volume loss and consolidation of the right lower lobe. Overlying rib fractures with increased herniation of intra-abdominal fat into the right pleural space consistent with a diaphragmatic defec t (series 3 image 87). The diaphragmatic defect measures 2.8 cm in diameter. Displacement of the ribs is increased from prior. Left lung and pleural space clear though there is evidence of underlying em physema. Liver: Nodular contour of the liver compatible with cirrhosis. Normal liver density. Biliary: No gross biliary ductal dilatation allowing for noncontrast technique. Gallbladder contains gallstones. Trace pericholecystic fat infiltration similar to prior. No pathologic distention of the gallbladder. Pancreas: Moderate parenchymal atrophy. Spleen: Normal. Adrenal glands: Multilobular macroscopic fat-containing lesion in the left adrenal gland measuring 6. 5 cm in diameter similar to prior exam and again consistent with myelolipoma. Right adrenal are niyah l. Kidneys and ureters: Normal noncontrast appearance. No nephrolithiasis. No hydronephrosis. Normal ure ters. Bladder: Decompressed with Killian catheter. Pelvic organs: Normal noncontrast appearance. Bowel: Diverticulosis of the sigmoid and descending colon without wall thickening or pericolonic infl ammatory change. The appendix is normal. No bowel obstruction. Peritoneal cavity: Infiltration of the peripancreatic and periduodenal region increased from prior. T race abdominal pelvic ascites. No free intraperitoneal gas. Lymph nodes: No gross lymphadenopathy allowing for noncontrast technique. Vasculature: Atherosclerosis of the normal caliber abdominal aorta. Abdominal wall: Significant body wall edema. Infiltration of the right anterolateral abdominal wall m ay relate to the reported injury though the degree of diffuse body wall edema makes assessment for fo diana contusion limited. Right posterior lateral chest wall collection is most consistent with herniate d right pleural fluid. This is new from prior. Musculoskeletal: Significant displacement of right lower rib fractures with an increased degree of di splacement in comparison to prior. Degenerative changes of the spine. Osteopenia. IMPRESSION: 1. Interval development of a fluid collection along the right posterolateral chest wall. This is not consistent with a hematoma by density. This most likely indicates herniation and/or discontinuity of the right pleural space with herniated right pleural fluid. 2. Right traumatic diaphragmatic defect with herniation of intra-abdominal fat into the right pleura l space. 3. Increased displacement of the multiple acute right lateral rib fractures. 4. Moderate right pleural effusion with complete collapse of the right lower lobe. 5. Cirrhosis with trace ascites. 6. Diverticulosis. 7. Nonspecific peripancreatic and periduodenal infiltration, which could relate to the presence of a scites/generalized edema. Correlate with lipase to exclude pancreatitis as an etiology of this benoit schwartz Electronically signed by: Kwame Trivedi M.D. 06/03/2018 12:34 PM
--- NOTE | 2018-06-03 19:18 | Progress Note ---
DATE: 06/03/2018 Mr. Zarco was seen today and he feels "much better." He is on 2 liters, 94% saturation. He still is plethoric in appearance, but he feels better. His x-ray was reviewed from today and he has a persistent right pleural effusion, even though we attempted to drain him dry yesterday, markedly displaced rib fractures and he does have a fairly complicated effusion. We will see how well tomorrow his x-ray looks. He is going to be a very difficult patient to put a PleurX in, but we may need to do this in order to drain this fluid. I would be loathe to take this patient to the operating room.
[2018-06-03] MEDS: cefTRIAXone SODIUM 2,000 MG in DEXTROSE 5% 50 ML IV SCH (21:02)
[2018-06-04] MEDS: MoRPHine SULFATE 4 MG/ML 1 ML CARP\\VIAL IV PRN ×2 (00:44→03:32)
[2018-06-04] MEDS: ALBUTEROL 0.5% NEB SOLN 2.5 MG/0.5 ML VIAL NEB PRN (00:56)
--- NOTE | 2018-06-04 06:00 | Progress Note ---
Date of Service June 04, 2018 Subjective -Called by nurse for concern of increasing heart rate and increased O2 requirement 2L to 4L -Pt evaluated and appeared to be in respiratory distress, tachypneic with diffuse wheezing and tachycardic to 120s-130s with regular rhythm -CXR obtained revealed worsening R sided pleural effusion -Pt given lopressor 5mg IV x 1 to see if HR improves but did not make much of a difference -Dr. Slater called and recommended moving the pt to the ICU. He plans on doing bronchoscopy today -Pt was made NPO for procedure and ICU transfer orders placed Results & Data Vital Signs (Past 12 Hours) Vital Signs Temp Pulse Pulse Resp BP BP BP 06/04/18 03:31 36.6 C 125 H 24 95/65 L 06/04/18 00:56 99 H 16 06/03/18 23:31 126 H 128/69 06/03/18 23:30 36.8 C 105 H 18 128/92 06/03/18 20:12 36.7 C 104 H 20 112/73 Pulse Ox 06/04/18 03:31 93 06/04/18 00:56 98 06/03/18 23:31 06/03/18 23:30 96 06/03/18 20:12 98
[2018-06-04] MEDS ORDERED: ALBUMIN 25% 50 ML IV STA (06:42)
[2018-06-04 06:55] LABS: Basophils # (auto) 0.01 K/uL (0-0.2); Basophils % (auto) 0.1 %; Eosinophils # (auto) 0.17 K/uL (0-0.5); Eosinophils % (auto) 1.5 %; Hematocrit (blood only) 25.4 % (42-52); Immature Granulocytes # (auto) 0.04 K/uL (0.00-0.02); Immature Granulocytes % (auto) 0.4 %; Lymphocytes # (auto) 1.36 K/uL (1.2-3.4); Mean Corpuscular Hgb Conc 35.4 g/dL (32-36); Mean Corpuscular Volume 95.5 fL (80-100); Mean Platelet Volume 9.8 fL (7.4-10.4); Monocytes # (auto) 1.31 K/uL (0.11-0.59); Monocytes % (auto) 11.6 %; Neutrophils # (auto) 8.42 K/uL (1.4-6.5); Neutrophils % (auto) 74.4 %; Platelet Count 147 K/uL (130-400); RDW Coefficient of Variation 17.8 % (11.5-14.5); RDW Standard Deviation 61.3 fL (36.4-46.3); Red Blood Count 2.66 M/uL (4.7-6.1); White Blood Count 11.31 K/uL (4.8-10.8)
[2018-06-04] MEDS: ALBUT/IPRATROP 3MG/0.5MG NEB 3 ML VIAL NEB SCH ×4 (06:56→19:38)
--- NOTE | 2018-06-04 07:07 | Family Medicine Progress Note ---
Date of Service June 04, 2018 Assessment & Plan (1) Pleural effusion, right: Patient with recurrent right sided pleural effusion, s/p thoracentesis on 05/22 with 350mL bloody fluid removed. Possibly traumatic in setting of multiple rib fractures. Patient with significant pain, tachypnea, requiring minimal O2 to maintain saturations. Patient also with significant anasarca h/o cirrhosis and CHF, recurrence of hemothorax vs other fluid accumulation. Overnight of 06/03-06/04 patient had increasing oxygen requirements and tachycardia unresponsive to Lopressor. Chest x-ray was obtained showing a worsening pleural effusion Dr. Velazco was contacted and recommended transfer to the ICU. 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 This likely explains the diffuse ecchymosis on his right side. This injury likely happened during prior presentation and fluid accumulation tamponaded not at the vessel. Upon thoracocentesis during this hospital admission the tamponade was removed and the vessel allowed to bleed. -Admited to the ICU -Supplemental O2 a needed to maintain sats 92%, currently 4L -Continuous pulse oximetry -continue CTX -Chest tube was placed this morning with total drainage of 2 L until 1 PM when drainage tapered off. -Should bleeding continue the patient will likely need transfer to [place] for IR embolization -Chest tube management per ICU -DC'd Lasix given bleeding (2) Multiple fractures of ribs: Patient with fractures of ribs 7-10 mid-axillary line, diagnosed by CT during last hospital admission. Possibly secondary to severe coughing in setting of recent PNA/bronchitis. Significant pain. unclear etiology see subjective above -Consult pain management appreciate recommendations -Continue Oxycontin 10mg po BID -Continue Oxycodone 5mg po q 6 hours -Increase morphine to 4 mg IV every 2 hours as needed -Lidoderm patch -Bowel regimen, Colace and Miralax PRN -Incentive spirometry q2h while awake -Conventionally rib fractures are no longer repaired, furthermore with this patient's numerous comorbidities he is a poor surgical candidate. -The patient will need need longterm on discharge to ensure he does not reinjure his intercostal vasculature (3) Cirrhosis: Patient with history of liver cirrhosis thought to be secondary to EtOH abuse. Child Class B, MELD score =11. MRI performed on 01/11/18 with two lesions suspicious for HCC. AFP level on 04/29/18 was 22.8 (relatively stable, was 27.9 on 07/23/17 and 18.9 on 01/18/18). Patient reports that he follows with Dr. Petty for this and has been doing well. Patient with anasarca today. Patient has been on multiple courses of Prednisone over the past month which is most likely contributing to fluid retention. Is not encephalopathic, does not appear to have significant ascites, liver labs are essentially unchanged from prior. Do not suspect decompensated cirrhosis. Weight is 120kg, was 136kg on discharge but patient reports appx 15 pound gain over the last 2 weeks. Mildly elevated K at 5.2. -Consulted gastroenterology for management appreciate recs -Holding Lasix given recent bleed -Spironolactone 50 mg p.o. twice daily -Low Na/CC diet -Daily weights -Repeat LFTs in AM -Hold PO K supplementation in the setting of hyper kalemia -Daily BMP (4) COPD (chronic obstructive pulmonary disease): Patient with COPD, +diffuse wheezing noted on exam. On minimal O2 at pr esent -Supplemental O2 PRN to maintain sats 92% -DuoNebs q 6 hours -Albuterol q 2 hours PRN -Will not continue steroids at this time (5) Hypertension: Blood pressure well controlled at present -Continue Atenolol -Diuretics as above -Continue to monitor (6) Rapid atrial fibrillation: Patient with history of AF . Intermittent tachycardia currently pulse is 102. Tachycardia likely secondary to pain and poor oxygenation secondary to pleural effusion -Treatment of pain as above, supplemental O2 -Pigtail chest tube in place -Continue Atenolol BID -Metoprolol 5mg IV q 4h PRN HR > 110 -Telemetry monitoring (7) Hyponatremia: Cn=857. Near baseline. Patient is on salt tablets at home. -DC salt tablets -Adding Lasix continue spironolactone -Fluid restriction -BMP q AM (8) Abdominal wall contusion: H/H stable. Patient with significant abdominal pain -Pain control as above F/E/N -low-salt diet Ppx - low risk Code -Full per discussion with patient Dispo -ICU hopefully will downgrade tomorrow Supervising Physician Co-Signing Physician Notes Attending attestation Pt seen and examined in concert with Dr. Ferrari. In agreement with the documented findings as noted in the resident documentation with any exceptions or additions as noted here. Patient resting fitfully in bed, chest tube in place and draining 1700cc of dark red blood with improvement in CXR findings c/w appropriate drainage of the hemothorax. Acute respiratory failure 2/2 right hemothorax in the setting of multiple displaced rib fractures - HCT confirms - CT surgical consultation appreciated - continue drainage and d/c pigtail when drainage has improved. Continue ceftriaxone. Pain management as noted. Cirrhosis w/ generalized anasarca - Child B, MELD 11. GI consultation appreciated - holding diuresis at present 2/2 low BP in acute bleeding. Holding spironolactone. D/C'd sodium tablets. Hepatic lesions - Dr. Petty follows. Atrial fibrillation - IV metoprolol PRN Else see resident documentation as noted. Subjective Per report patient had acute decompensation of respiratory status overnight with corresponding tachycardia unresponsive to Lopressor. The nighttime resident was called to assess, obtained a chest x-ray showing repeat pleural effusion, contacted Dr. Slater who advised her to transfer the patient to the ICU for further care. Patient seen and evaluated this morning in the ICU.patient sitting upright in bed with his mother at the bedside. Both patient and mother were very anxious about patient's transfer to the ICU, management options, and what the patient's prognosis is. I reassured the family as best I could and answered his many questions as possible. Unfortunately the patient's prognosis is quite dependent upon his adherence to medical recommendation. Given his numerous comorbidities the patient is not a candidate for surgery at present, his pleural effusion appears to be secondary to bleeding in the thoracic cavity from some prior trauma related to his rib fracture, and his pain seems to be related to previous rib fracture. Pain management evaluated the patient today and stated he is likely not a candidate for nerve block at present although they cannot rule out in the future. Going forward from here the patient must do everything possible to ensure that he does not injure his right side as this will likely lead to a recurrence of bleeding and may be potentially fatal. More or less for the next 6 weeks he needs to allow his body to heal. Physical Exam Physical Exam: General: Obese male in no acute distress Eyes: EOMI/PERRLA Neck: Trachea midline, normal to visual inspection, negative JVD Chest: Clear to auscultation bilaterally no wheezes rales or rhonchi Cardiac: Tachycardic, irregularly irregular, normal S1 and S2, did not appreciate murmurs rubs or gallops GI: Abdomen is significantly distended tender to palpation over the lower abdomen, no appreciable masses, significant ecchymosis in the periumbilical area extending to his right flank and up the right costal's MSK: Moves all extremities Skin: Warm dry and intact, significant ecchymosis throughout his body. The worst patch is described above Neuro: Calm cooperative AAO x4 Results & Data Vital Signs (Past 12 Hours) Vital Signs Temp Pulse Pulse Resp BP BP BP 06/04/18 03:31 36.6 C 125 H 24 95/65 L 06/04/18 00:56 99 H 16 06/03/18 23:31 126 H 128/69 06/03/18 23:30 36.8 C 105 H 18 128/92 06/03/18 20:12 36.7 C 104 H 20 112/73 Pulse Ox 06/04/18 03:31 93 06/04/18 00:56 98 06/03/18 23:31 06/03/18 23:30 96 06/03/18 20:12 98 Laboratory Results 06/04/18 06/04/18 06/04/18 Range/Units 12:28 11:06 11:06 WBC (4.8-10.8) K/uL RBC (4.7-6.1) M/uL Hgb (14.0-18.0) g/dL Hct 26.6 L (42-52) % MCV (80-100) fL MCH (25-34) pg MCHC (32-36) g/dL RDW Std Deviation (36.4-46.3) fL RDW Coeff of Zack (11.5-14.5) % Plt Count (130-400) K/uL MPV (7.4-10.4) fL Immature Gran % (Auto) % Neut % (Auto) % Lymph % (Auto) % [place] % (Auto) % Eos % (Auto) % Baso % (Auto) % Immature Gran # (Auto) (0.00-0.02) K/uL Neut # (Auto) (1.4-6.5) K/uL Lymph # (Auto) (1.2-3.4) K/uL [place] # (Auto) (0.11-0.59) K/uL Eos # (Auto) (0-0.5) K/uL Baso # (Auto) (0-0.2) K/uL Sodium (136-145) mmol/L Potassium (3.5-5.1) mmol/L Chloride (98-107) mmol/L Carbon Dioxide (21-32) mmol/L Anion Gap (3-11) BUN (7-18) mg/dl Creatinine (0.6-1.4) mg/dl Est Cr Clr Drug Dosing ml/min Est GFR ( Amer) Est GFR (Non-Af Amer) BUN/Creatinine Ratio (10-20) Glucose (70-99) mg/dl Calcium (8.5-10.1) mg/dl Total Bilirubin (0.2-1) mg/dl Direct Bilirubin (0-0.2) mg/dl AST (15-37) U/L ALT (12-78) U/L Alkaline Phosphatase (45-117) U/L Total Protein (6.4-8.2) gm/dl Albumin (3.4-5.0) gm/dl Pleural Fluid Source RIGHT LUNG Pleural Color RED Pleural Appearance BLOODY Pleural WBC 2854 /uL Pleural RBC 2341725 /uL Pleural Polynuclear % 75.9 % Pleural Mononuclear % 24.1 % Pleural Total Protein 2.0 g/dl Pleural Albumin 1.0 g/dl Pleural LDH 365 U/L Pleural Glucose 78 mg/dl Pleural Amylase 30 U/L Nasal Screen MRSA (PCR) (Negative) 06/04/18 06/04/18 06/04/18 Range/Units 06:49 06:49 06:35 WBC 11.31 H (4.8-10.8) K/uL RBC 2.66 L (4.7-6.1) M/uL Hgb 9.0 L (14.0-18.0) g/dL Hct 25.4 L (42-52) % MCV 95.5 (80-100) fL MCH 33.8 (25-34) pg MCHC 35.4 (32-36) g/dL RDW Std Deviation 61.3 H (36.4-46.3) fL RDW Coeff of Zack 17.8 H (11.5-14.5) % Plt Count 147 (130-400) K/uL MPV 9.8 (7.4-10.4) fL Immature Gran % (Auto) 0.4 % Neut % (Auto) 74.4 % Lymph % (Auto) 12.0 % [place] % (Auto) 11.6 % Eos % (Auto) 1.5 % Baso % (Auto) 0.1 % Immature Gran # (Auto) 0.04 H (0.00-0.02) K/uL Neut # (Auto) 8.42 H (1.4-6.5) K/uL Lymph # (Auto) 1.36 (1.2-3.4) K/uL [place] # (Auto) 1.31 H (0.11-0.59) K/uL Eos # (Auto) 0.17 (0-0.5) K/uL Baso # (Auto) 0.01 (0-0.2) K/uL Sodium 129 L (136-145) mmol/L Potassium 5.0 (3.5-5.1) mmol/L Chloride 96 L (98-107) mmol/L Carbon Dioxide 25 (21-32) mmol/L Anion Gap 8.0 (3-11) BUN 25 H (7-18) mg/dl Creatinine 0.91 (0.6-1.4) mg/dl Est Cr Clr Drug Dosing 96.3 ml/min Est GFR ( Amer) 100.0 Est GFR (Non-Af Amer) 86.3 BUN/Creatinine Ratio 26.9 H (10-20) Glucose 111 H (70-99) mg/dl Calcium 8.6 (8.5-10.1) mg/dl Total Bilirubin 2.4 H (0.2-1) mg/dl Direct Bilirubin 1.0 H (0-0.2) mg/dl AST 64 H (15-37) U/L ALT 55 (12-78) U/L Alkaline Phosphatase 131 H (45-117) U/L Total Protein 5.3 L (6.4-8.2) gm/dl Albumin 2.3 L (3.4-5.0) gm/dl Pleural Fluid Source Pleural Color Pleural Appearance Pleural WBC /uL Pleural RBC /uL Pleural Polynuclear % % Pleural Mononuclear % % Pleural Total Protein g/dl Pleural Albumin g/dl Pleural LDH U/L Pleural Glucose mg/dl Pleural Amylase U/L Nasal Screen MRSA (PCR) Negative (Negative) Medications Administered Current Inpatient Medications Acetaminophen (Tylenol) 650 mg PO Q6H PRN PRN Reason: Pain or Fever Stop: 07/02/18 15:53 Albuterol (Duoneb) 3 ml NEB QIDR [facility] Stop: 07/02/18 15:59 Last Admin: 06/04/18 15:24 Dose: 3 ml Documented by: Albuterol (Ventolin 0.5% 2.5mg/0.5ml) 2.5 mg NEB Q2H PRN PRN Reason: SOB/Wheeze Stop: 07/02/18 15:53 Last Admin: 06/04/18 00:56 Dose: 2.5 mg Documented by: Atenolol (Tenormin) 100 mg PO BID [facility] Stop: 07/02/18 20:59 Last Admin: 06/04/18 08:16 Dose: 100 mg Documented by: Benzonatate (Tessalon Perle) 100 mg PO TID PRN PRN Reason: cough Stop: 07/02/18 16:29 Docusate Sodium (Colace) 100 mg PO BID PRN PRN Reason: Constipation Stop: 07/02/18 15:53 Folic Acid (Folvite) 7 mg PO [facility] Stop: 07/03/18 08:59 Last Admin: 06/04/18 08:17 Dose: 7 mg Documented by: Hydromorphone HCl (Dilaudid Advertising Writer) 25 mg IV PRN PRN; Protocol PRN Reason: Pain Stop: 06/18/18 08:36 Last Admin: 06/04/18 09:31 Dose: 0.2 ea Documented by: Ceftriaxone Sodium 2,000 mg/ (Dextrose) 50 mls @ 100 mls/hr IV Q24H [facility]; Protocol Stop: 06/12/18 19:59 Last Infusion: 06/03/18 21:37 Dose: Infused Documented by: Sodium Chloride (Nss 1000ml) 1,000 mls @ 15 mls/hr IV .Q24H [facility] Stop: 06/18/18 08:37 Last Admin: 06/04/18 08:57 Dose: 15 mls/hr Documented by: Lidocaine (Lidoderm 5%) 1 patch TD [facility] Stop: 07/02/18 16:29 Last Admin: 06/04/18 08:16 Dose: 1 patch Documented by: Metoprolol Tartrate (Lopressor) 5 mg IV Q4 PRN PRN Reason: tachycardia Stop: 07/02/18 15:53 Last Admin: 06/03/18 23:31 Dose: 5 mg Documented by: Miscellaneous (Remove Lidoderm Patch) 1 ea N/A DAILY@2100 [facility] Stop: 07/02/18 20:59 Last Admin: 06/04/18 15:30 Dose: 1 ea Documented by: Naloxone HCl (Narcan) 0.1 mg IV Q5M PRN; Protocol PRN Reason: Oversedation/Resp Depression Stop: 06/18/18 08:36 Ondansetron HCl (Zofran) 4 mg IV Q6H PRN PRN Reason: Nausea Stop: 07/02/18 15:53 Pantoprazole Sodium (Protonix) 40 mg PO QAM [facility] Stop: 07/03/18 08:59 Last Admin: 06/04/18 08:16 Dose: 40 mg Documented by: Polyethylene Glycol (Miralax Powder Packet) 17 gm PO DAILY [facility] Stop: 07/03/18 09:59 Last Admin: 06/04/18 08:17 Dose: Not Given Documented by: Spironolactone (Aldactone) 50 mg PO BID [facility] Stop: 07/02/18 20:59 Last Admin: 06/04/18 12:39 Dose: 50 mg Documented by: Resident Activity Tracking Resident Involvement: Resident Care Provided Care Provided: Adult Hospital Medicine (1) Multiple fractures of ribs Encounter type: initial encounter Fracture type: closed Laterality: right Qualified Code(s): S22.41XA - Multiple fractures of ribs, right side, initial encounter for closed fracture (2) Abdominal wall contusion Encounter type: initial encounter Qualified Code(s): S30.1XXA - Contusion of abdominal wall, initial encounter (3) Cirrhosis Ascites presence: with ascites Hepatic cirrhosis type: alcoholic cirrhosis Qualified Code(s): K70.31 - Alcoholic cirrhosis of liver with ascites (4) COPD (chronic obstructive pulmonary disease) COPD type: unspecified COPD Qualified Code(s): J44.9 - Chronic obstructive pulmonary disease, unspecified (5) Hypertension Hypertension type: essential hypertension Qualified Code(s): I10 - Essential (primary) hypertension
--- NOTE | 2018-06-04 07:13 | XRay Report ---
XR chest 1V portable CLINICAL HISTORY: Shortness of breath. COMPARISON STUDY: Chest CT May 15, 2018. Chest radiograph June 02, 2018. FINDINGS: Numerous displaced right-sided rib fractures are again noted. Fracture displacement has inc reased since radiographs of June 02, 2018. A moderate to large right pleural effusion has increased. There is hazy right lung opacity. Right lung aeration has decreased since prior exam. There is no pn eumothorax. There is no evidence for pulmonary edema. Right lower hemithorax opacity with elevation o f the right hemidiaphragm has increased. IMPRESSION: 1. Increase in size of a moderate to large right pleural effusion with increasing right basilar opaci ty and diminished right lung aeration since prior exam. No pneumothorax. 2. Multiple displaced right-sided rib fractures with interval increase in fracture displacement. Electronically signed by: Monster James M.D. 06/04/2018 7:12 AM
[2018-06-04 07:34] LABS: Albumin Level 2.3 gm/dl (3.4-5.0); BUN Creatinine Ratio 26.9 (10-20); Calcium 8.6 mg/dl (8.5-10.1); Creatinine Clr Calc Pharmacy 96.3 ml/min; Est GFR (Non-African American) 86.3
[2018-06-04] MEDS ORDERED: LIDOCAINE HCL 1% 20 ML VIAL ONE (07:40)
[2018-06-04 07:41] LABS: Bilirubin,Total 2.4 mg/dl (0.2-1); Total Protein 5.3 gm/dl (6.4-8.2)
[2018-06-04] MEDS ORDERED: MoRPHine SULFATE 4 MG/ML 1 ML CARP\\VIAL ONE (07:47)
[2018-06-04] MEDS: PANTOprazole 40 MG TAB PO SCH (08:16)
[2018-06-04] MEDS: BENZONATATE 100 MG CAPSULE PO SCH (08:16)
[2018-06-04] MEDS: LIDOCAINE 5% 1 PATCH TD SCH (08:16)
[2018-06-04] MEDS: ATENOLOL 50 MG TABLET PO SCH ×2 (08:16→20:56)
[2018-06-04] MEDS: POLYETHYLENE (MIRALAX) 17 GM PACK PO SCH (08:17)
[2018-06-04] MEDS: FOLIC ACID 1 MG TAB PO SCH (08:17)
[2018-06-04] MEDS: FUROSEMIDE 40 MG in SYRINGE 0 ML IV SCH (08:20)
[2018-06-04] MEDS: OXYCODONE HCL 10 MG TABCR (OXYCONTIN) PO SCH (08:20)
[2018-06-04] MEDS ORDERED: ALBUMIN 25% 50 ML IV ONE (08:30)
[2018-06-04] MEDS ORDERED: NALOXONE HCL 0.4 MG/1 ML VIAL/CARP IV PRN (08:37)
[2018-06-04] MEDS ORDERED: HYDROmorphone HCL 0.5MG/ML 50 ML CASSETTE IV PRN (08:37)
[2018-06-04] MEDS: SODIUM CHLORIDE 0.9% 1000ML 1,000 ML IV SCH (08:57)
--- NOTE | 2018-06-04 08:57 | Pain Management Consultation ---
Date of Consultation June 04, 2018 Assessment & Plan (1) Respiratory distress: (2) Pleural effusion, right: (3) Multiple fractures of ribs: At this time the patient does report adequate pain relief with the current regimen of Oxycontin 10mg BID, Oxycodone 5mg x 4 hours PRN, and Morphine 4mg IV x2 hours PRN. We could possibly perform intercostal nerve blocks but given that the patient's pain is adequately relieved and the patient is receiving significant thoracic procedures for large right sided pleural effusion, we will defer at this time. Thank you for the consultation. Encounter type: initial encounter Fracture type: closed Laterality: right Qualified Code(s): S22.41XA - Multiple fractures of ribs, right side, initial encounter for closed fracture (4) History of thoracentesis: History of Present Illness Attending Physician: Jaron Pritchett MD History of Present Illness Mr. Zarco is a 67 year old white male that has been seen in consultation at the [facility] ICU for chest pain. Patient did have bronchitis and during a coughing episode he sustained several right sided rib fractures. Patient has seen Dr. Graham for this complaint and has been placed on Oxycodone 5mg and Oxycontin 10mg BID. Patient states that the medication regimen was controlling his pain at home. He came into the ED several times with shortness of breath. He has been found to have large right pleural effusion that required a thoracentesis. Patient is scheduled for a bronchoscopy today. Patient is receiving Morphine 4mg IV PRN breakthrough pain which is effective. Patient rates his pain 2/10 currently (he received IV Morphine CONTROL ANALYST). He is SOB and requiring supplemental oxygen. No nausea, vomiting, abdominal pain, flank pain. Case discussed with Dr. Jumana Quinones Pain Assessment [facility] Combined Pain Scale: 2-Minimal - Able to engage in pleasures of life with some interference Allergies Allergy/AdvReac Type Severity Reaction Status Date / Time No Known Allergies Allergy Verified 06/02/18 10:50 Home Medications Home Medications Medication Instructions Recorded Confirmed Type atenolol 100 mg PO BID 01/06/18 06/02/18 History folic acid 7 mg PO QAM 01/06/18 06/02/18 History furosemide 40 mg PO QAM 01/06/18 06/02/18 History potassium chloride 20 mg PO QID 01/06/18 06/02/18 History umeclidinium-vilanterol [Anoro 1 puff INHALATION QAM 01/06/18 06/02/18 History Ellipta] pantoprazole 40 mg PO QAM 05/15/18 06/02/18 History albuterol sulfate 2 puff INH Q6H PRN 05/21/18 06/02/18 History ergocalciferol (vitamin D2) 50,000 unit PO WK 05/21/18 06/02/18 History [Vitamin D2] oxycodone 5 mg PO Q6H PRN 20 Days #40 tab 05/24/18 06/02/18 Rx oxycodone [OxyContin] 10 mg PO Q12 PRN 06/02/18 06/02/18 History prednisone 10 mg PO QAM 06/02/18 06/02/18 History sodium chloride 2 g PO BID 06/02/18 06/02/18 History spironolactone 50 mg PO BID 06/02/18 06/02/18 History Patient History Medical History Hypertension COPD (chronic obstructive pulmonary disease) CHF (congestive heart failure) Ascites (Acute) Asthmatic bronchitis (Acute) Cellulitis of leg Chest pain (Acute) Claudication (Acute) GI bleed (Resolved) Hyponatremia (Acute) Hypoxia (Acute) Rapid atrial fibrillation (Acute) Surgical History History of thoracentesis Family History Other Family history non-contributory Social History Preferred Language: Grenadian Communication Ability: Effective Visual Impairment: No Limitations Hearing Ability: Normal C D Stripper Required: No Beliefs That Will Affect Care: None marital status: Current Living Situation: Spouse current occupational status: retired Other Information That Helps Us Care for You: No Feels Safe at Home: Yes Safety Concerns: Feels Safe At This Time Smoking Status: Current every day smoker Tobacco Type: cigarettes Cigarettes Per Day: 20 Tobacco Cessation Education Requested by Patient: No Hx Alcohol Use: No Hx Substance Use: No Physical Exam Physical Exam: GENERAL: Morbidly obese 67 year old white male. Cognition is intact. Mood and affect is appropriate. In respiratory distress. Has to stop talking in the middle of his sentences to take in more breaths. HEAD: Normocephalic; atraumatic. EYES: Pupils are round, equal, and reactive to light; EOM intact. ENT: No external ear discharge or lesions. No rhinorrhea or epistaxis. No mucosal lesions. CHEST: (Patient and would not let me properly exam the area. "just got comfortable") NEURO: CN II-XII grossly intact with no focal deficits noted.
[2018-06-04] MEDS: DIGOXIN 250 MCG in SYRINGE 9 ML IV SCH ×2 (09:10→12:40)
--- NOTE | 2018-06-04 11:29 | Progress Note ---
DATE: 06/04/2018 I had called earlier this morning because the patient has increasing shortness of breath. His chest x-ray showed increasing fluid on the right. The patient is also a great deal of pain from his fractures. His heart rate was in the 140s and he was hypoxic. I recommended they moved the patient down to the unit. Upon evaluating him a short time later, heart rate is still in the 130s and saturations on supplemental oxygen were in the low 90s. He was fairly comfortable; however, I then turned him to his left side to the decubitus position in order to perform a PleurX catheter insertion; however, the patient could not lie on his side, so we rolled him back. I explained that we did see a window of fluid coming into the pleural cavity with ultrasound. I discussed this with Dr. Valenzuela. He is going to place a 14-[place] pigtail and with the patient sitting upright. We will drain the fluid; however, he does raise a good case for not putting a PleurX in as the patient really did not have much of ascites, but has cirrhosis and a history of hepatocellular carcinoma and was on the liver transplant list, but would not quit drinking alcohol, so they took him off last April of 2017. For this reason, we will hold off on the PleurX catheter and Dr. Valenzuela will insert the pigtail catheter.
--- NOTE | 2018-06-04 11:37 | XRay Report ---
XR chest 1V portable HISTORY: s/p right chest tube; verification of placement COMPARISON: Chest 06/04/2018. FINDINGS: Moderate right pleural effusion is again noted. This has slightly decreased in size. There is a pigtail catheter within the expected location of the right lung base. No pneumothorax. Multiple displaced right-sided rib fractures are again noted. The left lung remains clear. The heart remains e nlarged. IMPRESSION: 1. Slight decrease in size in the moderate right pleural effusion status post placement of a right ba silar pleural catheter. This is likely in good position, however, the exact location is difficult to determine with plain film technique. No pneumothorax. 2. Displaced right rib fractures are again noted. Electronically signed by: Alek Roblero M.D. 06/04/2018 11:36 AM
[2018-06-04] MEDS: SPIRONOLACTONE 25 MG TAB PO SCH ×2 (12:39→20:50)
[2018-06-04] MEDS ORDERED: ACETAMINOPHEN 325 MG TAB PO PRN (12:52)
[2018-06-04] MEDS ORDERED: BENZONATATE 100 MG CAPSULE PO PRN (12:52)
--- NOTE | 2018-06-04 13:21 | Critical Care Consultation ---
Date of Consultation June 04, 2018 Assessment & Plan (1) History of thoracentesis: Impression: 1. Hemothorax until proven otherwise. 2. Right-sided rib fractures 7 through 10. 3. Liver cirrhosis. 4. Anasarca. 5. History of COPD, stable. 6. A. fib, with RVR, not anticoagulated due to recent falls. 7. History of alcoholism. 8. History of hepatocellular carcinoma status post embolization and chemotherapy. 9. Morbid obesity with likely obstructive sleep apnea as well. 10. Chronic hyponatremia. Secondary to rib fractures. 12. Atelectasis of the right lower lobe and right middle lobe due to compression from hemothorax. Plan: 1. Chest tube thoracostomy was placed, 14 Ivorian, total drainage was 2000 up until 1 PM, will continue to monitor the drainage. 2. Hematocrits on the pleural fluid was 3, I am not sure if it was hemoglobin or hematocrit. Repeat hematocrit in the blood showed 26 which is stable. 3. Keep the chest tube to wall suction at 20 cm water. 4. If the bloody drainage continue to be above than 100 and our for 2 hours with a drop in hematocrit, the patient will need angiography and embolization of intercostal vein. Doubt arterial bleed. 5. I will hold off on the Lasix for now given the fact the patient has possible active bleeding. 6. Continue his bronchodilators on a regular basis. 7. Continue with DVT prophylaxis. 8. Continue his current medications. 9. Appreciate GI input. 10. Appreciate thoracic surgery input. 11. Daily chest x-ray. 12. Oral intake. Low-salt diet. 13. Follow the BUN/creatinine closely. 14. Discussed with the staff in details, discussed with the and the patient at the bedside, all in agreement. Critical care time spent with the patient was 60 minutes excluding procedure time. Thank you. History of Present Illness Reason for Consultation: Hemothorax Requesting Physician: Dr. Pritchett Attending Physician: Steve Pritchett MD History of Present Illness Dear Dr. Pritchett: Thank you for the kind referral of Mr. Zarco critical care service. This is a 67-year-old gentleman with history of liver cirrhosis, morbid obesity, history of alcoholism in the past, hepatocellular carcinoma status post embolization, followed by Lisa MAGALLANES, presented to the hospital earlier this month with diagnosis of pneumonia, the patient was treated as an outpatient, he did have pleural effusion underwent thoracentesis with 350 mL of fluid that was removed that was bloody. The patient presented to the hospital with severe pleuritic chest pain on the right side accompanied with ecchymosis, he claimed that he had injured his ribs after vigorous cough. The patient noted to have rib fractures from 7 through 10. Patient was admitted to the regular floor. Pleural effusion noted that has been escalating during his process. Patient was treated with oxycodone, OxyContin, Tessalon Perles and Lidoderm patch. Noted to have hypotension and tachycardia, patient has a history also of A. fib not anticoagulated due to his liver injury. Patient was awake following commands however he was dozing while he was talking to me, he denies any chest pain except from the right-sided rib fracture only with movement not at rest, able to tolerate oral intake, he is not tachypneic at the moment but appears uncomfortable. Tachycardia was noted and remains in A. fib. O2 sats is 95%. And his chest x-ray showed progression of pleural effusion on the right and ultrasound at the bedside showed septation with multiple pockets of pleural fluid. Allergies Allergy/AdvReac Type Severity Reaction Status Date / Time No Known Allergies Allergy Verified 06/02/18 10:50 Home Medications Home Medications Medication Instructions Recorded Confirmed Type atenolol 100 mg PO BID 01/06/18 06/02/18 History folic acid 7 mg PO QAM 01/06/18 06/02/18 History furosemide 40 mg PO QAM 01/06/18 06/02/18 History potassium chloride 20 mg PO QID 01/06/18 06/02/18 History umeclidinium-vilanterol [Anoro 1 puff INHALATION QAM 01/06/18 06/02/18 History Ellipta] pantoprazole 40 mg PO QAM 05/15/18 06/02/18 History albuterol sulfate 2 puff INH Q6H PRN 05/21/18 06/02/18 History ergocalciferol (vitamin D2) 50,000 unit PO WK 05/21/18 06/02/18 History [Vitamin D2] oxycodone 5 mg PO Q6H PRN 20 Days #40 tab 05/24/18 06/02/18 Rx oxycodone [OxyContin] 10 mg PO Q12 PRN 06/02/18 06/02/18 History prednisone 10 mg PO QAM 06/02/18 06/02/18 History sodium chloride 2 g PO BID 06/02/18 06/02/18 History spironolactone 50 mg PO BID 06/02/18 06/02/18 History Patient History Medical History Hypertension COPD (chronic obstructive pulmonary disease) CHF (congestive heart failure) Ascites (Acute) Asthmatic bronchitis (Acute) Cellulitis of leg Chest pain (Acute) Claudication (Acute) GI bleed (Resolved) Hyponatremia (Acute) Hypoxia (Acute) Rapid atrial fibrillation (Acute) Surgical History History of thoracentesis Family History Other Family history non-contributory Social History Preferred Language: Andorran Communication Ability: Effective Visual Impairment: No Limitations Hearing Ability: Normal Aviation Survival Technician Required: No Beliefs That Will Affect Care: None marital status: Current Living Situation: Spouse current occupational status: retired Other Information That Helps Us Care for You: No Feels Safe at Home: Yes Safety Concerns: Feels Safe At This Time Smoking Status: Current every day smoker Tobacco Type: cigarettes Cigarettes Per Day: 20 Tobacco Cessation Education Requested by Patient: No Hx Alcohol Use: No Hx Substance Use: No Review of Systems Review of Systems: Review of systems apart from the above was significant for occasional excessive daytime sleepiness, there is no nausea or vomiting, no hemoptysis reported, denies any abdominal pain, no diarrhea, he does have swelling in his lower extremities which has been chronic, he has no focal neuro symptoms. Ecchymosis on the right pleuritic area, tenderness by palpation also, denies any loss of consciousness, oral lesion, difficulty breathing. Physical Exam Physical Exam: Vital signs were stable, S1-S2 A. fib, rate of 105, blood pressure has been maintained, O2 sats 94% on nasal cannula, no lymphadenopathy in the neck area, although blood-tinged mucosa in the oral cavity, large ecchymosis on the right axillary area extending towards the right upper quadrant, abdomen is distended benign, bilateral edema, neurologically has no asterixis, nonfocal. Results & Data Vital Signs (Past 12 Hours) Vital Signs Temp Pulse Pulse Resp BP Pulse Ox 06/04/18 12:40 120 H 06/04/18 11:26 118 H 18 97 06/04/18 09:10 128 H 06/04/18 07:01 122 H 18 97 06/04/18 03:31 36.6 C 125 H 24 95/65 L 93 Laboratory Results Labs are consistent with hematocrit that was dropped from 33-26 and remains at 26 for the past 3 readings, bilirubin has been maintained at 2.3, LFTs are stable, INR is 1.2. Diagnostic Findings Chest x-ray and CAT scan both were reviewed personally which showed large pleural effusion and compression of the right lower lobe right middle lobe. There is displaced rib fracture affecting the lips from 7-10.
--- NOTE | 2018-06-04 13:25 | Procedure Note ---
Procedure Note Date of Service June 04, 2018 Note Chest tube was placed on the right side due to hemothorax, large bore pigtail catheter 14 Telugu was used. Consent obtained from the patient and the who were at the bedside, risk and benefits explained details, alternative therapy also explained in details, all in agreement with the procedure. The patient was placed in semirecumbent position, placing a pillow under his shoulder on the right side, the chest was imaged with ultrasound, pleural fluid with septation was noted, at the level of the seventh intercostal space at the mid axillary line on the right, under strict sterile field, the skin was prepped with chlorhexidine, and injected with total of 20 mL of 1% lidocaine, using Seldinger technique and a large needle Cook catheter, a wire was inserted over the needle and the needle was removed, using scalpel and dilator, a pigtail catheter was inserted afterward and the trocar was removed while the catheter was advanced into the right pleural cavity. Secured with 2 anchor sutures, covered with Xeroform and chest tube dressing, connected to the Pleur-evac, immediate release of 1300 mL of bloody fluid noted, the tube was in good position on the chest x-ray, no pneumothorax. Timeout was performed by the nursing staff, appreciated, appreciate assistance of staff and my colleague José Miguel Lozada. Thank you Coding
[2018-06-04] MEDS ORDERED: LIDOCAINE HCL 1% 20 ML VIAL INFIL ONE (14:51)
[2018-06-04 16:08] LABS: Appearance Pleural Fluid BLOODY; Color Pleural Fluid RED; Mononuclear WBC Pleural 24.1 %; Polynuclear WBC Pleural 75.9 %; RBC Pleural Fluid (A) 1047000 /uL; Source Pleural Fluid RIGHT LUNG; WBC Pleural Fluid (A) 2854 /uL
--- NOTE | 2018-06-04 17:05 | Consultation Report ---
DATE OF CONSULTATION: 06/04/2018 CHIEF COMPLAINT: Cirrhosis. HISTORY OF PRESENT ILLNESS: The patient is a 67-year-old, followed by Dr. Roman and Magalie Lemos along with Dr Solomon Petty for cirrhosis related to alcohol and steatohepatitis. He has hepatoma and has been treated at [facility]. The exact nature of the treatment is not known, but according to the patient, there is no evidence of active hepatoma at this time. The patient developed pneumonia recently and was vigorous coughing. It appears that he has fractured ribs 7 through 10 in the right axillary area. He has a hemothorax and had a chest tube placed today. His liver has been relatively stable leading up to this time. He is maintained on 40 mg of Lasix and 50 mg of spironolactone twice a day as an outpatient for excessive fluid. He has not had any obvious bleeding or encephalopathy. It is unclear when his last EGD was performed. When he presented, he was in atrial fibrillation. MEDICATIONS: As an outpatient per list. ALLERGIES: None. FAMILY HISTORY: Noncontributory. SOCIAL HISTORY: The patient is . Smokes cigarettes. No alcohol. PAST MEDICAL HISTORY: Remarkable for cirrhosis with ascites. He has cellulitis claudication, history of GI bleed, rapid AFib, CHF, COPD, hypertension. REVIEW OF SYSTEMS: Positive for right chest pain, shortness of breath at rest. PHYSICAL EXAMINATION: GENERAL: The patient is morbidly obese. ABDOMEN: He has ecchymoses on his abdomen. He has a right-sided chest tube in place. Abdomen is obese and I was unable to palpate any internal organs. LABORATORY DATA: His INR is 1.2, bilirubin is 1.9, creatinine is 1.03 with a MELD score of about 8. IMPRESSION: The patient has cirrhosis with hepatoma, which appears to be stable. Dr. Dominguez is covering this weekend. No acute intervention is necessary related to his liver at this time. I expected as an outpatient when he is discharged, he will follow up with Dr. Petty and Dr. Roman as he was prior to being hospitalized.
[2018-06-04 20:12] LABS: Hematocrit (blood only) 25.1 % (42-52); Hemoglobin 8.5 g/dL (14.0-18.0)
[2018-06-04] MEDS: cefTRIAXone SODIUM 2,000 MG in DEXTROSE 5% 50 ML IV SCH (20:49)
[2018-06-05 05:01] LABS: Basophils # (auto) 0.01 K/uL (0-0.2); Basophils % (auto) 0.1 %; Eosinophils # (auto) 0.25 K/uL (0-0.5); Eosinophils % (auto) 2.8 %; Hematocrit (blood only) 24.3 % (42-52); Hemoglobin 8.4 g/dL (14.0-18.0); Immature Granulocytes # (auto) 0.02 K/uL (0.00-0.02); Immature Granulocytes % (auto) 0.2 %; Lymphocytes # (auto) 1.39 K/uL (1.2-3.4); Lymphocytes % (auto) 15.8 %; Mean Corpuscular Hgb Conc 34.6 g/dL (32-36); Mean Corpuscular Volume 95.7 fL (80-100); Mean Platelet Volume 9.4 fL (7.4-10.4); Monocytes # (auto) 1.19 K/uL (0.11-0.59); Monocytes % (auto) 13.5 %; Neutrophils # (auto) 5.96 K/uL (1.4-6.5); Neutrophils % (auto) 67.6 %; Platelet Count 150 K/uL (130-400); RDW Standard Deviation 61.8 fL (36.4-46.3); Red Blood Count 2.54 M/uL (4.7-6.1); White Blood Count 8.82 K/uL (4.8-10.8)
[2018-06-05 05:17] LABS: BUN Creatinine Ratio 28.8 (10-20); Calcium 8.2 mg/dl (8.5-10.1); Creatinine Clr Calc Pharmacy 104.4 ml/min; Est GFR (African American) 104.3; Magnesium 2.1 mg/dl (1.8-2.4); Potassium 4.9 mmol/L (3.5-5.1)
--- NOTE | 2018-06-05 06:48 | Family Medicine Progress Note ---
Date of Service June 05, 2018 Assessment & Plan (1) Pleural effusion, right: Patient with recurrent right sided pleural effusion, s/p thoracentesis on 05/22 with 350mL bloody fluid removed. Possibly traumatic in setting of multiple rib fractures. Patient with significant pain, tachypnea, requiring minimal O2 to maintain saturations. Patient also with significant anasarca h/o cirrhosis a nd CHF, recurrence of hemothorax vs other fluid accumulation. Overnight of 06/03-06/04 patient had increasing oxygen requirements and tachycardia unresponsive to Lopressor. Chest x-ray was obtained showing a worsening pleural effusion Dr. Velazco was contacted and recommended transfer to the ICU. 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 This likely explains the diffuse ecchymosis on his right side. This injury likely happened during prior presentation and fluid accumulation tamponaded not at the vessel. Upon thoracocentesis during this hospital admission the tamponade was removed and the vessel allowed to bleed. -patient has been stablized will downgrade to tele status -Supplemental O2 a needed to maintain sats 92%, currently 2L -Continuous pulse oximetry -continue CTX day 05/14 -Chest tube was placed 06/04 drained 1200 overnight -Should bleeding reccur the patient will likely need transfer to [place] for IR embolization -Chest tube maintained at 20cm h20 -Chest tube is draining less bloody fluid more serous in nature today -H&H remained stable today (2) Multiple fractures of ribs: Patient with fractures of ribs 7-10 mid-axillary line, diagnosed by CT during last hospital admission. Possibly secondary to severe coughing in setting of recent PNA/bronchitis. Significant pain. 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 -The patient will need need senior living on discharge to ensure he does not reinjure his intercostal vasculature (3) Cirrhosis: Patient with history of liver cirrhosis thought to be secondary to EtOH abuse. Child Class B, MELD score =11. MRI performed on 01/11/18 with two lesions suspicious for HCC. AFP level on 04/29/18 was 22.8 (relatively stable, was 27.9 on 07/23/17 and 18.9 on 01/18/18). Patient reports that he follows with Dr. Petty for this and has been doing well. Patient with anasarca today. Patient has been on multiple courses of Prednisone over the past month which is most likely contributing to fluid retention. Is not encephalopathic, does not appear to have significant ascites, liver labs are essentially unchanged from prior. Do not suspect decompensated cirrhosis. Weight is 120kg, was 136kg on discharge but patient reports appx 15 pound gain over the last 2 weeks. Mildly elevated K at 5.2. -Consulted gastroenterology for management appreciate recs -Resume Lasix 40 mg p.o. daily -Spironolactone 50 mg p.o. twice daily -Low Na/CC diet -Daily weights -Repeat LFTs in AM -Hold PO K supplementation in the setting of hyper kalemia (4) COPD (chronic obstructive pulmonary disease): Patient with COPD, +diffuse wheezing noted on exam. On minimal O2 at present -Supplemental O2 PRN to maintain sats 92% -DuoNebs q 6 hours -Albuterol q 2 hours PRN -Will not continue steroids at this time (5) Hypertension: Blood pressure well controlled at present -Continue Atenolol -Started on metoprolol succinate 50 mg p.o. daily -Diuretics as above -Continue to monitor (6) Rapid atrial fibrillation: Patient with history of AF . Intermittent tachycardia currently pulse is 102. Tachycardia likely secondary to pain and poor oxygenation secondary to pleural effusion -Treatment of pain as above, supplemental O2 -Pigtail chest tube in place -Continue Atenolol BID -Metoprolol succinate 50 mg p.o. daily -Telemetry monitoring (7) Hyponatremia: Au=880. Near baseline. Patient is on salt tablets at home. -DC salt tablets -Adding Lasix continue spironolactone -Fluid restriction -BID BMP -Started on albumin 25 g every 6 hours for 12 doses secondary to leaking of osmotic fluid -If sodium continues downtrending can consider hypertonic saline and/or resumption of salt tabs (8) Abdominal wall contusion: H/H stable. Patient with significant abdominal pain -Pain control as above F/E/N -low-salt diet Ppx - low risk Code -Full per discussion with patient Dispo -telemetry Supervising Physician Co-Signing Physician Notes Attending attestation Pt seen and examined in concert with Dr. Ferrari. In agreement with the documented findings as noted in the resident documentation with any exceptions or additions as noted here. Resting in bed reporting significantly improved pain control following chest tube placement with local anesthesia and current medications. Edema has subjectively improved. On examination, 2+ pitting edema to the upper abdomen bilaterally with weeping along the left flank (latter is chronic), S1/S2 nl with tachycardia, significant TTP to even light palpation of the right flank. Right hemothorax in the setting of multiple displaced rib fractures with resolved acute respiratory failure - continue drainage and d/c pigtail when drainage has ceased. Continue ceftriaxone. Hypervolemic hyponatremia, chronic, in the setting of cirrhosis - downtrended today. Fluid restrict, diuresis, albumen infusions to mobilize extravascular fluid. Monitor BID Cirrhosis w/ generalized anasarca - Child B, MELD 11. GI consultation appreciated - Holding spironolactone. D/C'd sodium tablets. Management of fluid as above. Hepatic lesions - Dr. Petty follows. Atrial fibrillation - metoprolol succinate 50mg daily. IV metoprolol PRN. SQ Lovenox Else see resident documentation as noted. Subjective Patient was lying in bed this morning with his at the bedside. Reported doing well overnight no acute events. Tolerating his diet, voiding, no bowel movement, sleeping appropriately. She requested to be downgraded from ICU status, I think this is within reason. She reports pain is significantly improved status post nerve block and chest tube placement. Patient states pain is only present when he rolls around her shift side to side, chest tube is still putting out significant drainage, patient also endorsed weeping from his abdomen. began a conversation regarding discharge planning with the patient, will continue to monitor, plan to downgrade to telemetry today. All questions were answered no acute concerns at present Physical Exam Physical Exam: General: Obese male in no acute distress Eyes: EOMI/PERRLA Neck: Trachea midline, normal to visual inspection, negative JVD Chest: Clear to auscultation bilaterally no wheezes rales or rhonchi, chest tube in place no air leaks draining serosanguineous fluid today more serous in nature Cardiac: Tachycardic, irregularly irregular, normal S1 and S2, did not appreciate murmurs rubs or gallops 3+ pitting edema to the mid thigh GI: Abdomen is significantly distended tender to palpation over the lower abdomen, no appreciable masses, significant ecchymosis in the periumbilical area extending to his right flank and up the right costal's MSK: Moves all extremities Skin: Warm dry and intact, significant ecchymosis throughout his body. The worst patch is described above Neuro: Calm cooperative AAO x4 Results & Data Vital Signs (Past 12 Hours) Vital Signs Temp Pulse Pulse Resp BP Pulse Ox 06/05/18 06:01 130 H 24 114/63 94 06/05/18 05:02 108 H 12 93/57 L 92 06/05/18 04:01 36.7 C 105 H 17 116/91 96 06/05/18 03:02 113 H 14 132/52 L 93 06/05/18 02:01 101 H 9 L 108/53 L 93 06/05/18 01:01 100 H 20 100/65 93 06/05/18 00:01 36.3 C L 109 H 12 102/68 94 06/04/18 23:01 101 H 18 110/61 94 06/04/18 22:30 113 H 18 94 06/04/18 22:01 117 H 13 108/72 94 06/04/18 22:00 112 H 15 06/04/18 21:30 126 H 14 92 06/04/18 21:00 99 H 9 L 122/69 93 06/04/18 20:55 108 H 20 114/66 93 06/04/18 20:53 134 H 25 H 84/65 L 92 06/04/18 20:52 111 H 17 99/54 L 95 06/04/18 20:51 111 H 18 81/57 L 94 06/04/18 20:38 115 H 15 88/56 L 93 06/04/18 20:30 113 H 10 L 92 06/04/18 20:00 36.5 C 115 H 17 95 06/04/18 19:40 113 H 20 96 06/04/18 19:30 117 H 20 90 06/04/18 19:02 123 H 22 111/72 89 L 06/04/18 19:00 116 H 19 96 Laboratory Results 06/05/18 04:36 06/05/18 04:36 06/05/18 06/05/18 06/05/18 Range/Units 04:36 04:36 00:23 WBC 8.82 (4.8-10.8) K/uL RBC 2.54 L (4.7-6.1) M/uL Hgb 8.4 L (14.0-18.0) g/dL Hct 24.3 L (42-52) % MCV 95.7 (80-100) fL MCH 33.1 (25-34) pg MCHC 34.6 (32-36) g/dL RDW Std Deviation 61.8 H (36.4-46.3) fL RDW Coeff of Zack 18.0 H (11.5-14.5) % Plt Count 150 (130-400) K/uL MPV 9.4 (7.4-10.4) fL Immature Gran % (Auto) 0.2 % Neut % (Auto) 67.6 % Lymph % (Auto) 15.8 % Bland % (Auto) 13.5 % Eos % (Auto) 2.8 % Baso % (Auto) 0.1 % Immature Gran # (Auto) 0.02 (0.00-0.02) K/uL Neut # (Auto) 5.96 (1.4-6.5) K/uL Lymph # (Auto) 1.39 (1.2-3.4) K/uL Bland # (Auto) 1.19 H (0.11-0.59) K/uL Eos # (Auto) 0.25 (0-0.5) K/uL Baso # (Auto) 0.01 (0-0.2) K/uL Sodium 126 L (136-145) mmol/L Potassium 4.9 (3.5-5.1) mmol/L Chloride 94 L (98-107) mmol/L Carbon Dioxide 28 (21-32) mmol/L Anion Gap 4.0 (3-11) BUN 24 H (7-18) mg/dl Creatinine 0.84 (0.6-1.4) mg/dl Est Cr Clr Drug Dosing 104.4 ml/min Est GFR ( Amer) 104.3 Est GFR (Non-Af Amer) 90.0 BUN/Creatinine Ratio 28.8 H (10-20) Glucose 98 (70-99) mg/dl POC Glucose 113 H (70-99) Calcium 8.2 L (8.5-10.1) mg/dl Magnesium 2.1 (1.8-2.4) mg/dl Total Bilirubin (0.2-1) mg/dl Direct Bilirubin (0-0.2) mg/dl AST (15-37) U/L ALT (12-78) U/L Alkaline Phosphatase (45-117) U/L Total Protein (6.4-8.2) gm/dl Albumin (3.4-5.0) gm/dl Pleural Fluid Source Pleural Color Pleural Appearance Pleural WBC /uL Pleural RBC /uL Pleural Polynuclear % % Pleural Mononuclear % % Pleural Total Protein g/dl Pleural Albumin g/dl Pleural LDH U/L Pleural Glucose mg/dl Pleural Amylase U/L Nasal Screen MRSA (PCR) (Negative) Blood Type Antibody Screen 06/04/18 06/04/18 06/04/18 Range/Units 20:01 20:01 12:28 WBC (4.8-10.8) K/uL RBC (4.7-6.1) M/uL Hgb 8.5 L (14.0-18.0) g/dL Hct 25.1 L 26.6 L (42-52) % MCV (80-100) fL MCH (25-34) pg MCHC (32-36) g/dL RDW Std Deviation (36.4-46.3) fL RDW Coeff of Zack (11.5-14.5) % Plt Count (130-400) K/uL MPV (7.4-10.4) fL Immature Gran % (Auto) % Neut % (Auto) % Lymph % (Auto) % Bland % (Auto) % Eos % (Auto) % Baso % (Auto) % Immature Gran # (Auto) (0.00-0.02) K/uL Neut # (Auto) (1.4-6.5) K/uL Lymph # (Auto) (1.2-3.4) K/uL Bland # (Auto) (0.11-0.59) K/uL Eos # (Auto) (0-0.5) K/uL Baso # (Auto) (0-0.2) K/uL Sodium (136-145) mmol/L Potassium (3.5-5.1) mmol/L Chloride (98-107) mmol/L Carbon Dioxide (21-32) mmol/L Anion Gap (3-11) BUN (7-18) mg/dl Creatinine (0.6-1.4) mg/dl Est Cr Clr Drug Dosing ml/min Est GFR ( Amer) Est GFR (Non-Af Amer) BUN/Creatinine Ratio (10-20) Glucose (70-99) mg/dl POC Glucose (70-99) Calcium (8.5-10.1) mg/dl Magnesium (1.8-2.4) mg/dl Total Bilirubin (0.2-1) mg/dl Direct Bilirubin (0-0.2) mg/dl AST (15-37) U/L ALT (12-78) U/L Alkaline Phosphatase (45-117) U/L Total Protein (6.4-8.2) gm/dl Albumin (3.4-5.0) gm/dl Pleural Fluid Source Pleural Color Pleural Appearance Pleural WBC /uL Pleural RBC /uL Pleural Polynuclear % % Pleural Mononuclear % % Pleural Total Protein g/dl Pleural Albumin g/dl Pleural LDH U/L Pleural Glucose mg/dl Pleural Amylase U/L Nasal Screen MRSA (PCR) (Negative) Blood Type A Positive Antibody Screen NEGATIVE 06/04/18 06/04/18 06/04/18 Range/Units 11:06 11:06 06:49 WBC (4.8-10.8) K/uL RBC (4.7-6.1) M/uL Hgb (14.0-18.0) g/dL Hct (42-52) % MCV (80-100) fL MCH (25-34) pg MCHC (32-36) g/dL RDW Std Deviation (36.4-46.3) fL RDW Coeff of Zack (11.5-14.5) % Plt Count (130-400) K/uL MPV (7.4-10.4) fL Immature Gran % (Auto) % Neut % (Auto) % Lymph % (Auto) % Bland % (Auto) % Eos % (Auto) % Baso % (Auto) % Immature Gran # (Auto) (0.00-0.02) K/uL Neut # (Auto) (1.4-6.5) K/uL Lymph # (Auto) (1.2-3.4) K/uL Bland # (Auto) (0.11-0.59) K/uL Eos # (Auto) (0-0.5) K/uL Baso # (Auto) (0-0.2) K/uL Sodium 129 L (136-145) mmol/L Potassium 5.0 (3.5-5.1) mmol/L Chloride 96 L (98-107) mmol/L Carbon Dioxide 25 (21-32) mmol/L Anion Gap 8.0 (3-11) BUN 25 H (7-18) mg/dl Creatinine 0.91 (0.6-1.4) mg/dl Est Cr Clr Drug Dosing 96.3 ml/min Est GFR ( Amer) 100.0 Est GFR (Non-Af Amer) 86.3 BUN/Creatinine Ratio 26.9 H (10-20) Glucose 111 H (70-99) mg/dl POC Glucose (70-99) Calcium 8.6 (8.5-10.1) mg/dl Magnesium (1.8-2.4) mg/dl Total Bilirubin 2.4 H (0.2-1) mg/dl Direct Bilirubin 1.0 H (0-0.2) mg/dl AST 64 H (15-37) U/L ALT 55 (12-78) U/L Alkaline Phosphatase 131 H (45-117) U/L Total Protein 5.3 L (6.4-8.2) gm/dl Albumin 2.3 L (3.4-5.0) gm/dl Pleural Fluid Source RIGHT LUNG Pleural Color RED Pleural Appearance BLOODY Pleural WBC 2854 /uL Pleural RBC 2791025 /uL Pleural Polynuclear % 75.9 % Pleural Mononuclear % 24.1 % Pleural Total Protein 2.0 g/dl Pleural Albumin 1.0 g/dl Pleural LDH 365 U/L Pleural Glucose 78 mg/dl Pleural Amylase 30 U/L Nasal Screen MRSA (PCR) (Negative) Blood Type Antibody Screen 06/04/18 06/04/18 Range/Units 06:49 06:35 WBC 11.31 H (4.8-10.8) K/uL RBC 2.66 L (4.7-6.1) M/uL Hgb 9.0 L (14.0-18.0) g/dL Hct 25.4 L (42-52) % MCV 95.5 (80-100) fL MCH 33.8 (25-34) pg MCHC 35.4 (32-36) g/dL RDW Std Deviation 61.3 H (36.4-46.3) fL RDW Coeff of Zack 17.8 H (11.5-14.5) % Plt Count 147 (130-400) K/uL MPV 9.8 (7.4-10.4) fL Immature Gran % (Auto) 0.4 % Neut % (Auto) 74.4 % Lymph % (Auto) 12.0 % Bland % (Auto) 11.6 % Eos % (Auto) 1.5 % Baso % (Auto) 0.1 % Immature Gran # (Auto) 0.04 H (0.00-0.02) K/uL Neut # (Auto) 8.42 H (1.4-6.5) K/uL Lymph # (Auto) 1.36 (1.2-3.4) K/uL Bland # (Auto) 1.31 H (0.11-0.59) K/uL Eos # (Auto) 0.17 (0-0.5) K/uL Baso # (Auto) 0.01 (0-0.2) K/uL Sodium (136-145) mmol/L Potassium (3.5-5.1) mmol/L Chloride (98-107) mmol/L Carbon Dioxide (21-32) mmol/L Anion Gap (3-11) BUN (7-18) mg/dl Creatinine (0.6-1.4) mg/dl Est Cr Clr Drug Dosing ml/min Est GFR ( Amer) Est GFR (Non-Af Amer) BUN/Creatinine Ratio (10-20) Glucose (70-99) mg/dl POC Glucose (70-99) Calcium (8.5-10.1) mg/dl Magnesium (1.8-2.4) mg/dl Total Bilirubin (0.2-1) mg/dl Direct Bilirubin (0-0.2) mg/dl AST (15-37) U/L ALT (12-78) U/L Alkaline Phosphatase (45-117) U/L Total Protein (6.4-8.2) gm/dl Albumin (3.4-5.0) gm/dl Pleural Fluid Source Pleural Color Pleural Appearance Pleural WBC /uL Pleural RBC /uL Pleural Polynuclear % % Pleural Mononuclear % % Pleural Total Protein g/dl Pleural Albumin g/dl Pleural LDH U/L Pleural Glucose mg/dl Pleural Amylase U/L Nasal Screen MRSA (PCR) Negative (Negative) Blood Type Antibody Screen Medications Administered Current Inpatient Medications Acetaminophen (Tylenol) 650 mg PO Q6H PRN PRN Reason: Pain or Fever Stop: 07/02/18 15:53 Albuterol (Duoneb) 3 ml NEB QIDR [facility] Stop: 07/02/18 15:59 Last Admin: 06/04/18 19:38 Dose: 3 ml Documented by: Albuterol (Ventolin 0.5% 2.5mg/0.5ml) 2.5 mg NEB Q2H PRN PRN Reason: SOB/Wheeze Stop: 07/02/18 15:53 Last Admin: 06/04/18 00:56 Dose: 2.5 mg Documented by: Atenolol (Tenormin) 100 mg PO BID [facility] Stop: 07/02/18 20:59 Last Admin: 06/04/18 20:56 Dose: 100 mg Documented by: Benzonatate (Tessalon Perle) 100 mg PO TID PRN PRN Reason: cough Stop: 07/02/18 16:29 Docusate Sodium (Colace) 100 mg PO BID PRN PRN Reason: Constipation Stop: 07/02/18 15:53 Folic Acid (Folvite) 7 mg PO QAM [facility] Stop: 07/03/18 08:59 Last Admin: 06/04/18 08:17 Dose: 7 mg Documented by: Hydromorphone HCl (Dilaudid [employer]ockey) 25 mg IV PRN PRN; Protocol PRN Reason: Pain Stop: 06/18/18 08:36 Last Admin: 06/04/18 09:31 Dose: 0.2 ea Documented by: Ceftriaxone Sodium 2,000 mg/ (Dextrose) 50 mls @ 100 mls/hr IV Q24H [facility]YS[facility]; Protocol Stop: 06/12/18 19:59 Last Infusion: 06/04/18 21:30 Dose: Infused Documented by: Sodium Chloride (Nss 1000ml) 1,000 mls @ 15 mls/hr IV .Q24H [facility] Stop: 06/18/18 08:37 Last Admin: 06/04/18 08:57 Dose: 15 mls/hr Documented by: Lidocaine (Lidoderm 5%) 1 patch TD QAM [facility] Stop: 07/02/18 16:29 Last Admin: 06/04/18 08:16 Dose: 1 patch Documented by: Metoprolol Tartrate (Lopressor) 5 mg IV Q4 PRN PRN Reason: tachycardia Stop: 07/02/18 15:53 Last Admin: 06/03/18 23:31 Dose: 5 mg Documented by: Miscellaneous (Remove Lidoderm Patch) 1 ea N/A DAILY@2100 [facility] Stop: 07/02/18 20:59 Last Admin: 06/04/18 15:30 Dose: 1 ea Documented by: Naloxone HCl (Narcan) 0.1 mg IV Q5M PRN; Protocol PRN Reason: Oversedation/Resp Depression Stop: 06/18/18 08:36 Ondansetron HCl (Zofran) 4 mg IV Q6H PRN PRN Reason: Nausea Stop: 07/02/18 15:53 Pantoprazole Sodium (Protonix) 40 mg PO QAM [facility] Stop: 07/03/18 08:59 Last Admin: 06/04/18 08:16 Dose: 40 mg Documented by: Polyethylene Glycol (Miralax Powder Packet) 17 gm PO DAILY [facility] Stop: 07/03/18 09:59 Last Admin: 06/04/18 08:17 Dose: Not Given Documented by: Spironolactone (Aldactone) 50 mg PO BID [facility] Stop: 07/02/18 20:59 Last Admin: 06/04/18 20:50 Dose: 50 mg Documented by: Resident Activity Tracking Resident Involvement: Resident Care Provided Care Provided: Adult Hospital Medicine (1) Multiple fractures of ribs Encounter type: initial encounter Fracture type: closed Laterality: right Qualified Code(s): S22.41XA - Multiple fractures of ribs, right side, initial encounter for closed fracture (2) Abdominal wall contusion Encounter type: initial encounter Qualified Code(s): S30.1XXA - Contusion of abdominal wall, initial encounter (3) Cirrhosis Ascites presence: with ascites Hepatic cirrhosis type: alcoholic cirrhosis Qualified Code(s): K70.31 - Alcoholic cirrhosis of liver with ascites (4) COPD (chronic obstructive pulmonary disease) COPD type: unspecified COPD Qualified Code(s): J44.9 - Chronic obstructive pulmonary disease, unspecified (5) Hypertension Hypertension type: essential hypertension Qualified Code(s): I10 - Essential (primary) hypertension
[2018-06-05] MEDS: ALBUT/IPRATROP 3MG/0.5MG NEB 3 ML VIAL NEB SCH ×4 (07:16→19:14)
[2018-06-05] MEDS: SPIRONOLACTONE 25 MG TAB PO SCH ×2 (07:25→21:10)
[2018-06-05] MEDS: PANTOprazole 40 MG TAB PO SCH (07:26)
[2018-06-05] MEDS: ATENOLOL 50 MG TABLET PO SCH ×2 (07:26→21:10)
[2018-06-05] MEDS: FOLIC ACID 1 MG TAB PO SCH (07:26)
[2018-06-05] MEDS: LIDOCAINE 5% 1 PATCH TD SCH (07:27)
[2018-06-05] MEDS: POLYETHYLENE (MIRALAX) 17 GM PACK PO SCH (07:27)
[2018-06-05] MEDS: SODIUM CHLORIDE 0.9% 1000ML 1,000 ML IV SCH (07:30)
--- NOTE | 2018-06-05 08:53 | XRay Report ---
XR chest 1V portable CLINICAL HISTORY: chest tube follow up tube position COMPARISON STUDY: 06/04/2018 FINDINGS: Improved right pleural effusion . Improved aeration right base. Left lung remains generally clear. Moderate stable cardiomegaly. There is no evidence of pneumothorax . Right basilar drainage catheter is unchanged in location. IMPRESSION: 1. Improved aeration as well as diminished volume of a right pleural effusion. 2. Right basilar drainage catheter remains in good position. 3. No evidence for pneumothorax. The above report was generated using voice recognition software. It may contain grammatical, syntax or spelling errors. Electronically signed by: Samson Carlton M.D. 06/05/2018 8:51 AM
--- NOTE | 2018-06-05 09:39 | Critical Care Progress Note ---
Date of Service June 05, 2018 Assessment & Plan (1) History of thoracentesis: Impression: 1. Hemothorax until proven otherwise. 2. Right-sided rib fractures 7 through 10. 3. Liver cirrhosis. 4. Anasarca. 5. History of COPD, stable. 6. A. fib, with RVR, not anticoagulated due to recent falls. 7. History of alcoholism. 8. History of hepatocellular carcinoma status post embolization and chemotherapy. 9. Morbid obesity with likely obstructive sleep apnea as well. 10. Chronic hyponatremia. Secondary to his liver cirrhosis, appears to be worsening in the past 24 hours likely from fluid overload after stopping the Lasix. 12. Atelectasis of the right lower lobe and right middle lobe due to compression from hemothorax. Plan: 1. Continue chest tube to wall suction 20 cm water. 2. Hematocrit remained stable at 24.6 and we will follow. 3. Due to leaking of osmotic fluid, I will start the patient in albumin 25 g every 6 hours for 12 doses. 4. The output of the chest tube appeared to be less bloody and likely clearing up. No effect on the thousand hemoglobin and hematocrit. 5. Resume Lasix 40 mg p.o. daily. 6. Continue albuterol and add Symbicort, the patient has been on Anoro which is not available at our institution. 7. Resume Lovenox 40 mg subcu daily for DVT prophylaxis. 8. Start metoprolol succinate 50 mg p.o. daily. 9. Appreciate GI input. 10. Appreciate thoracic surgery input. 11. Chest x-ray was reviewed which showed improvement in the ventilation of the right lower lobe. Pleural effusion has been decreasing as well. 12. Oral intake. Low-salt diet. 13. Daily labs. Watch for the sodium, BUN and creatinine, H&H. 14. Obtain urine electrolytes to evaluate for urine sodium. 15. Continue spironolactone. 16. Continue with digoxin for rate control in addition to metoprolol. 17. The patient also written for metoprolol IV as needed in addition. 18. Ceftriaxone was given for UTI, complete the course for 5 days then stop it. 19. Out of bed as tolerated. 20. Patient can be transferred to telemetry floor. Case discussed with the staff on rounds and details. Critical care time spent with the patient was 60 minutes excluding procedure time. Thank you. Subjective The patient has been stable overnight, denies any chest pain or shortness of breath, pain mainly at the anterior right chest area only with motion due to rib fracture, his heart rate has been variable, remains in A. fib, leaking from the chest tube requiring chest tube dressing change. Review of Systems Review of Systems: Chest pain only with motion and appears to be pleuritic, no increased swelling in his lower extremities, denies any shortness of breath or cough, well-controlled with pain, no abdominal pain, no nausea or vomiting and no heartburn. He is more alert and less dosing. No insomnia and slept very well. No events overnight. Rest of his review of system was unremarkable. Physical Exam Physical Exam: Vital signs are stable, S1-S2 regular rate and rhythm, distant breath sounds bilaterally, chest tube site well-maintained, edema in the periphery. Morbid obesity, neurologically he is nonfocal, no asterixis. Skin ecchymosis noted at the site of rib fracture. No oral lesions. Results & Data Vital Signs (Past 12 Hours) Vital Signs Temp Pulse Pulse Resp BP Pulse Ox 06/05/18 07:16 104 H 18 93 06/05/18 06:01 130 H 24 114/63 94 06/05/18 05:02 108 H 12 93/57 L 92 06/05/18 04:01 36.7 C 105 H 17 116/91 96 06/05/18 03:02 113 H 14 132/52 L 93 06/05/18 02:01 101 H 9 L 108/53 L 93 06/05/18 01:01 100 H 20 100/65 93 06/05/18 00:01 36.3 C L 109 H 12 102/68 94 06/04/18 23:01 101 H 18 110/61 94 06/04/18 22:30 113 H 18 94 06/04/18 22:01 117 H 13 108/72 94 06/04/18 22:00 112 H 15 Laboratory Results His labs were reviewed which showed slight hyponatremia, hematocrit remained stable at 24.3, the rest of his labs including BUN and creatinine has been stable. Diagnostic Findings Chest x-ray showed improvement in the right pleural effusion, inflation of the right lower lobe, rib fractures on the right. Chest tube in good position.
--- NOTE | 2018-06-05 09:51 | Progress Note ---
DATE: 06/05/2018 Mr. Zarco was seen today. He feels better. His pain is better, even though he still has pain from his rib fractures. He drained a large amount of bloody fluid, but this is now becoming more serous and his hemoglobin really did not drop much. His x-ray looks better. He still has some fluid in the base, but overall he looks better. At this point, I would continue draining; however, I discussed this with Dr. Valenzuela and given his history of cirrhosis, this may be a problem with drainage. The pigtail catheter cannot stay in indefinitely. My hope is that this will slow down to the point where he can remove it. It does not appear to me that Mr. Zarco is actively bleeding at this point.
[2018-06-05] MEDS: ALBUMIN 25% 50 ML IV SCH ×3 (10:23→23:06)
[2018-06-05] MEDS: FUROSEMIDE 40 MG TAB PO SCH (10:36)
[2018-06-05] MEDS: BUDESONIDE/FORMOTEROL FUMARATE 160/4.5 60 PUFFS/INHALER INH SCH ×2 (10:37→21:09)
[2018-06-05] MEDS: ENOXAPARIN INJ 40 MG/0.4 ML SYR SQ SCH (10:37)
[2018-06-05] MEDS: METOPROLOL SUCC 50MG EXT REL TAB PO SCH (10:38)
[2018-06-05 10:40] LABS: Urine Chloride < 10 mmol/L; Urine Sodium < 5 mmol/L
[2018-06-05] MEDS ORDERED: MoRPHine SULFATE 2 MG/ML CARP IV PRN (15:19)
--- NOTE | 2018-06-05 16:45 | Gastroenterology Progress Note ---
Date of Service June 05, 2018 Assessment & Plan (1) Cirrhosis: Nothing acute to do. Will sign off. Pt to follow up with DR Roman office on [place] as he has been followed there. Subjective cc f/u cirrhosis HPI with patient for H and P. Pt follows with Dr Roman for cirrhosis. No current liver issues. No abd pain. His pain is in chest from rib fractures and hemothorax. Review of Systems Respiratory: no dyspnea Cardiovascular: no chest pain Physical Exam Constitutional: WD/WN, vitals as above Respiratory: normal respiratory effort, lungs clear to auscultation Cardiovascular: Heart Sounds: normal S1 and normal S2 Gastrointestinal (Abdomen): normal bowel sounds, soft, nontender, no hepatosplenomegaly Psychiatric: A+Ox3, euthymic affect Results & Data Vital Signs (Past 12 Hours) Vital Signs Pulse Pulse Resp BP Pulse Ox 06/05/18 14:52 115 H 18 99 06/05/18 14:01 96 H 22 96/69 L 99 06/05/18 14:00 126 H 18 98 06/05/18 13:30 103 H 19 97 06/05/18 13:00 111 H 20 97 06/05/18 12:30 98 H 15 97 06/05/18 12:02 123 H 18 85 L 06/05/18 12:01 134 H 19 96/62 L 97 06/05/18 12:00 114 H 12 06/05/18 11:30 116 H 21 91 06/05/18 11:14 102 H 18 98 06/05/18 11:01 104 H 16 97/62 L 97 06/05/18 11:00 101 H 21 06/05/18 10:30 105 H 20 95 06/05/18 10:01 84 20 94 06/05/18 10:00 112 H 18 101/70 97 06/05/18 09:30 105 H 18 96 06/05/18 09:01 115 H 20 107/63 98 06/05/18 09:00 120 H 16 87 L 06/05/18 08:30 121 H 13 96 06/05/18 08:00 114 H 14 103/66 95 06/05/18 07:30 119 H 17 96 06/05/18 07:22 98 H 20 103/60 99 06/05/18 07:16 104 H 18 93 06/05/18 07:01 106 H 17 88/64 L 93 06/05/18 07:00 97 H 20 06/05/18 06:30 117 H 19 95 06/05/18 06:02 96 06/05/18 06:01 130 H 24 114/63 94 06/05/18 05:02 108 H 12 93/57 L 92 (1) Cirrhosis Hepatic cirrhosis type: alcoholic cirrhosis Ascites presence: with ascites Qualified Code(s): K70.31 - Alcoholic cirrhosis of liver with ascites
[2018-06-05] MEDS: DIGOXIN 0.125 MG TAB PO SCH (17:04)
[2018-06-05 17:24] LABS: BUN Creatinine Ratio 22.3 (10-20); Calcium 8.3 mg/dl (8.5-10.1); Creatinine Clr Calc Pharmacy 102.2 ml/min; Est GFR (African American) 96.2; Potassium 4.4 mmol/L (3.5-5.1)
[2018-06-05] MEDS: cefTRIAXone SODIUM 2,000 MG in DEXTROSE 5% 50 ML IV SCH (19:56)
[2018-06-05] MEDS: OXYCODONE HCL 10 MG TABCR (OXYCONTIN) PO SCH (21:10)
[2018-06-06] MEDS: ALBUMIN 25% 50 ML IV SCH ×4 (03:51→21:43)
[2018-06-06] MEDS: ALBUT/IPRATROP 3MG/0.5MG NEB 3 ML VIAL NEB SCH ×4 (07:26→19:06)
--- NOTE | 2018-06-06 07:32 | Family Medicine Progress Note ---
Date of Service June 06, 2018 Assessment & Plan (1) Pleural effusion, right: Patient with recurrent right sided pleural effusion, s/p thoracentesis on 05/22 with 350mL bloody fluid removed. Possibly traumatic in setting of multiple rib fractures. Patient with significant pain, tachypnea, requiring minimal O2 to maintain saturations. Patient also with significant anasarca h/o cirrhosis and CHF, recurrence of hemothorax vs other fluid accumulation. Overnight of 06/03-06/04 patient had increasing oxygen requirements and tachycardia unresponsive to Lopressor. Chest x-ray was obtained showing a worsening pleural effusion Dr. Velazco was contacted and recommended transfer to the ICU. 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 This likely explains the diffuse ecchymosis on his right side. This injury likely happened during prior presentation and fluid accumulation tamponaded not at the vessel. Upon thoracocentesis during this hospital admission the tamponade was removed and the vessel allowed to bleed. -Supplemental O2 a needed to maintain sats 92%, currently 2L -Continuous pulse oximetry -continue CTX day 06/13, dc tomorrow -Chest tube was was placed to waterseal -Chest tube is draining less bloody fluid more serous in nature today -Hgb dropped from 8.4-7.9 overnight put in repeat H&H for 4 PM will follow up. -Type and cross, transfuse if hemoglobin less than 7 already consented -Management per Palm -Encourage ambulation as tolerated DC Killian -CT surgery consulted (2) Multiple fractures of ribs: Patient with fractures of ribs 7-10 mid-axillary line, diagnosed by CT during last hospital admission. Possibly secondary to severe coughing in setting of recent PNA/bronchitis. Significant pain. 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 -The patient will need need shelter on discharge to ensure he does not reinjure his intercostal vasculature (3) Cirrhosis: Patient with history of liver cirrhosis thought to be secondary to EtOH abuse. Child Class B, MELD score =11. MRI performed on 01/11/18 with two lesions suspicious for HCC. AFP level on 04/29/18 was 22.8 (relatively stable, was 27.9 on 07/23/17 and 18.9 on 01/18/18). Patient reports that he follows with Dr. Petty for this and has been doing well. Patient with anasarca today. Patient has been on multiple courses of Prednisone over the past month which is most likely contributing to fluid retention. Is not encephalopathic, does not appear to have significant ascites, liver labs are essentially unchanged from prior. Do not suspect decompensated cirrhosis. Weight is 120kg, was 136kg on discharge but patient reports appx 15 pound gain over the last 2 weeks. Mildly elevated K at 5.2. -GI signed off -Resume Lasix 40 mg p.o. daily -Spironolactone 50 mg p.o. twice daily -Low Na/CC diet -Daily weights -Repeat LFTs in AM -Hold PO K supplementation in the setting of hyper kalemia (4) COPD (chronic obstructive pulmonary disease): Patient with COPD, +diffuse wheezing noted on exam. Satting well on room air -Supplemental O2 PRN to maintain sats 92% -DuoNebs q 6 hours -Albuterol q 2 hours PRN -Will not continue steroids at this time (5) Hypertension: Blood pressure well controlled at present -Continue Atenolol -Started on metoprolol succinate 50 mg p.o. daily -Diuretics as above -Continue to monitor (6) Rapid atrial fibrillation: Patient with history of AF . Intermittent tachycardia currently pulse is 102. Tachycardia likely secondary to pain and poor oxygenation secondary to pleural effusion -Treatment of pain as above, supplemental O2 -Pigtail chest tube in place -Continue Atenolol BID -Metoprolol succinate 50 mg p.o. daily -Telemetry monitoring (7) Hyponatremia: Pq=361. Near baseline. Patient is on salt tablets at home. -DC salt tablets -Adding Lasix continue spironolactone -Fluid restriction -Daily BMP -Started on albumin 25 g every 6 hours for 12 doses secondary to leaking of osmotic fluid -If sodium continues downtrending can consider hypertonic saline and/or resumption of salt tabs -Liver function studies normal (8) Abdominal wall contusion: H/H stable. Patient with significant abdominal pain -Pain control as above F/E/N -low-salt diet Ppx -Lovenox Code -Full per discussion with patient Dispo -telemetry Supervising Physician Co-Signing Physician Notes Attending attestation Pt seen and examined in concert with Dr. Ferrari. In agreement with the documented findings as noted in the resident documentation with any exceptions or additions as noted here. 67 y/o male h/o alcoholic cirrhosis (now on NA beer), HTN, COPD, CHF, COPD presenting with right sided, displaced rib fractures x 4 with hemothorax s/p thoracostomy tube placement. Significantly better spirits today and laying in bed following brief ambulation this morning by pulmonology recommendation. On examination, pitting edema to proximal thigh bilaterally, considerably improved from previous, S1/S2 nl with mild tachycardia, significant TTP to even light palpation of the right flank unchanged. Right hemothorax in the setting of multiple displaced rib fractures with resolved acute respiratory failure - continue drainage and d/c pigtail when drainage has ceased. Continue ceftriaxone. Pain mgmt as noted. Hypervolemic hyponatremia, chronic, in the setting of cirrhosis - improved to b aseline. Fluid restrict, diuresis, albumen infusions to mobilize extravascular fluid. Monitor daily Cirrhosis w/ generalized anasarca - Child B, MELD 11. GI consultation appreciated - Holding spironolactone. D/C'd sodium tablets. Management of fluid as above. Hepatic lesions - Dr. Petty follows. Atrial fibrillation - metoprolol succinate 50mg daily. IV metoprolol PRN. SQ Lovenox Else see resident documentation as noted. Subjective Patient laying in bed this morning, in no acute distress. Patient reports having a difficult night overnight, reports intermittent pain with certain motions status post discontinuation of the [employer]AF[employer] CONSULTANT. Informed patient he has PRN medications ordered, and that if you wanted them he had to ask. Overall patient reports symptomatic improvement in his condition, Killian catheter in place to be DC'd later today, has not had a bowel movement in several days, tolerating his diet, fluid restricted to 2 L and sleeping okay. Advised the patient that he should get up and move around today although be careful not to reinjure his rib. No acute concerns at present, all questions were answered. Patient denies fevers chills nausea vomiting diarrhea constipation shortness of breath chest pressure Patient endorses right-sided chest pain with movement Physical Exam Physical Exam: General: Obese male in no acute distress Eyes: EOMI/PERRLA Neck: Trachea midline, normal to visual inspection, negative JVD Chest: Clear to auscultation bilaterally no wheezes rales or rhonchi, chest tube in place no air leaks draining serosanguineous fluid today more serous in nature Cardiac: Tachycardic, irregularly irregular, normal S1 and S2, did not appreciate murmurs rubs or gallops 2+ pitting edema to the knee GI: Abdomen is significantly distended tender to palpation over the lower abdomen, no appreciable masses, significant ecchymosis in the periumbilical area extending to his right flank and up the right costal's improving MSK: Moves all extremities Skin: Warm dry and intact, significant ecchymosis throughout his body. The worst patch is described above Neuro: Calm cooperative AAO x4 Results & Data Vital Signs (Past 12 Hours) Vital Signs Temp Pulse Pulse Resp BP Pulse Ox 06/06/18 04:00 36.7 C 61 18 96/60 L 96 06/06/18 00:18 112 H 06/05/18 23:04 36.8 C 105 H 20 95/61 L 96 06/05/18 21:08 111 H 106/70 98 06/05/18 19:52 36.8 C 84 20 102/67 97 Laboratory Results 06/06/18 06/06/18 06/05/18 Range/Units 07:24 07:24 16:23 WBC 5.26 (4.8-10.8) K/uL RBC 2.35 L (4.7-6.1) M/uL Hgb 7.9 L (14.0-18.0) g/dL Hct 22.9 L (42-52) % MCV 97.4 (80-100) fL MCH 33.6 (25-34) pg MCHC 34.5 (32-36) g/dL RDW Std Deviation 63.6 H (36.4-46.3) fL RDW Coeff of Zack 18.5 H (11.5-14.5) % Plt Count 131 (130-400) K/uL MPV 9.2 (7.4-10.4) fL Immature Gran % (Auto) 0.2 % Neut % (Auto) 69.6 % Lymph % (Auto) 15.8 % Billings % (Auto) 10.6 % Eos % (Auto) 3.6 % Baso % (Auto) 0.2 % Immature Gran # (Auto) 0.01 (0.00-0.02) K/uL Neut # (Auto) 3.66 (1.4-6.5) K/uL Lymph # (Auto) 0.83 L (1.2-3.4) K/uL Billings # (Auto) 0.56 (0.11-0.59) K/uL Eos # (Auto) 0.19 (0-0.5) K/uL Baso # (Auto) 0.01 (0-0.2) K/uL Polychromasia 1+ Macrocytosis Present Sodium 129 L 128 L (136-145) mmol/L Potassium 4.2 4.4 (3.5-5.1) mmol/L Chloride 95 L 93 L (98-107) mmol/L Carbon Dioxide 29 29 (21-32) mmol/L Anion Gap 6.0 6.0 (3-11) BUN 16 21 H (7-18) mg/dl Creatinine 0.82 0.94 (0.6-1.4) mg/dl Est Cr Clr Drug Dosing 115.8 102.2 ml/min Est GFR ( Amer) 105.3 96.2 Est GFR (Non-Af Amer) 90.9 83.0 BUN/Creatinine Ratio 19.0 22.3 H (10-20) Glucose 121 H 112 H (70-99) mg/dl Calcium 8.2 L 8.3 L (8.5-10.1) mg/dl Total Bilirubin 2.3 H (0.2-1) mg/dl Direct Bilirubin 1.2 H (0-0.2) mg/dl AST 45 H (15-37) U/L ALT 39 (12-78) U/L Alkaline Phosphatase 127 H (45-117) U/L Total Protein 5.1 L (6.4-8.2) gm/dl Albumin 2.5 L (3.4-5.0) gm/dl Medications Administered Current Inpatient Medications Acetaminophen (Tylenol) 650 mg PO Q6H PRN PRN Reason: Pain or Fever Stop: 07/02/18 15:53 Albuterol (Duoneb) 3 ml NEB QIDR [facility] Stop: 07/02/18 15:59 Last Admin: 06/06/18 11:09 Dose: 3 ml Documented by: Albuterol (Ventolin 0.5% 2.5mg/0.5ml) 2.5 mg NEB Q2H PRN PRN Reason: SOB/Wheeze Stop: 07/02/18 15:53 Last Admin: 06/04/18 00:56 Dose: 2.5 mg Documented by: Atenolol (Tenormin) 100 mg PO BID [facility] Stop: 07/02/18 20:59 Last Admin: 06/06/18 09:25 Dose: 100 mg Documented by: Benzonatate (Tessalon Perle) 100 mg PO TID PRN PRN Reason: cough Stop: 07/02/18 16:29 Budesonide/Formoterol Fumarate (Symbicort 160mcg/4.5mcg) 2 puffs INH BID [facility] Stop: 07/05/18 08:59 Last Admin: 06/06/18 09:25 Dose: 2 puffs Documented by: Digoxin (Lanoxin) 0.125 mg PO DAILY@1600 [facility] Stop: 07/05/18 15:59 Last Admin: 06/05/18 17:04 Dose: 0.125 mg Documented by: Docusate Sodium (Colace) 100 mg PO BID PRN PRN Reason: Constipation Stop: 07/02/18 15:53 Enoxaparin Sodium (Lovenox) 40 [facility] SQ [facility] Stop: 07/05/18 08:59 Last Admin: 06/06/18 09:24 Dose: 40 mg Documented by: Folic Acid (Folvite) 7 mg PO QAM [facility] Stop: 07/03/18 08:59 Last Admin: 06/06/18 09:22 Dose: 7 mg Documented by: Furosemide (Lasix) 40 mg PO QAM [facility] Stop: 07/05/18 08:59 Last Admin: 06/06/18 09:23 Dose: 40 mg Documented by: Albumin Human (Albumin 25%) 50 mls @ 50 mls/hr IV Q6H [facility] Stop: 06/08/18 04:59 Last Infusion: 06/06/18 10:39 Dose: Infused Documented by: Lidocaine (Lidoderm 5%) 1 patch TD QAM [facility] Stop: 07/02/18 16:29 Last Admin: 06/06/18 09:24 Dose: Not Given Documented by: Metoprolol Succinate (Toprol Xl) 50 mg PO QAM [facility] Stop: 07/05/18 08:59 Last Admin: 06/06/18 09:22 Dose: 50 mg Documented by: Metoprolol Tartrate (Lopressor) 5 mg IV Q4 PRN PRN Reason: tachycardia Stop: 07/02/18 15:53 Last Admin: 06/03/18 23:31 Dose: 5 mg Documented by: Miscellaneous (Remove Lidoderm Patch) 1 ea N/A DAILY@2100 [facility] Stop: 07/02/18 20:59 Last Admin: 06/05/18 21:12 Dose: Not Given Documented by: Morphine Sulfate (Morphine Sulfate) 2 mg IV Q4H PRN PRN Reason: Pain Stop: 06/19/18 15:18 Naloxone HCl (Narcan) 0.1 mg IV Q5M PRN; Protocol PRN Reason: Oversedation/Resp Depression Stop: 06/18/18 08:36 Ondansetron HCl (Zofran) 4 mg IV Q6H PRN PRN Reason: Nausea Stop: 07/02/18 15:53 Oxycodone HCl (Roxicodone Immediate Rel) 5 mg PO Q6H PRN PRN Reason: Pain Stop: 06/19/18 15:16 Last Admin: 06/06/18 09:21 Dose: 5 mg Documented by: Oxycodone HCl (Oxycontin) 10 mg PO BID [facility] Stop: 06/19/18 20:59 Last Admin: 06/06/18 09:21 Dose: 10 mg Documented by: Pantoprazole Sodium (Protonix) 40 mg PO QAM [facility] Stop: 07/03/18 08:59 Last Admin: 06/06/18 09:23 Dose: 40 mg Documented by: Polyethylene Glycol (Miralax Powder Packet) 17 gm PO DAILY [facility] Stop: 07/03/18 09:59 Last Admin: 06/06/18 09:25 Dose: 17 gm Documented by: Spironolactone (Aldactone) 50 mg PO BID [facility] Stop: 07/02/18 20:59 Last Admin: 06/06/18 09:23 Dose: 50 mg Documented by: Resident Activity Tracking Resident Involvement: Resident Care Provided Care Provided: Adult Hospital Medicine (1) Multiple fractures of ribs Encounter type: initial encounter Fracture type: closed Laterality: right Qualified Code(s): S22.41XA - Multiple fractures of ribs, right side, initial encounter for closed fracture (2) Abdominal wall contusion Encounter type: initial encounter Qualified Code(s): S30.1XXA - Contusion of abdominal wall, initial encounter (3) Cirrhosis Ascites presence: with ascites Hepatic cirrhosis type: alcoholic cirrhosis Qualified Code(s): K70.31 - Alcoholic cirrhosis of liver with ascites (4) COPD (chronic obstructive pulmonary disease) COPD type: unspecified COPD Qualified Code(s): J44.9 - Chronic obstructive pulmonary disease, unspecified (5) Hypertension Hypertension type: essential hypertension Qualified Code(s): I10 - Essential (primary) hypertension
[2018-06-06 07:44] LABS: Basophils # (auto) 0.01 K/uL (0-0.2); Basophils % (auto) 0.2 %; Eosinophils # (auto) 0.19 K/uL (0-0.5); Eosinophils % (auto) 3.6 %; Hematocrit (blood only) 22.9 % (42-52); Hemoglobin 7.9 g/dL (14.0-18.0); Immature Granulocytes # (auto) 0.01 K/uL (0.00-0.02); Immature Granulocytes % (auto) 0.2 %; Lymphocytes # (auto) 0.83 K/uL (1.2-3.4); Lymphocytes % (auto) 15.8 %; Mean Corpuscular Hgb Conc 34.5 g/dL (32-36); Mean Corpuscular Volume 97.4 fL (80-100); Mean Platelet Volume 9.2 fL (7.4-10.4); Monocytes # (auto) 0.56 K/uL (0.11-0.59); Monocytes % (auto) 10.6 %; Neutrophils # (auto) 3.66 K/uL (1.4-6.5); Neutrophils % (auto) 69.6 %; Platelet Count 131 K/uL (130-400); RDW Coefficient of Variation 18.5 % (11.5-14.5); RDW Standard Deviation 63.6 fL (36.4-46.3); Red Blood Count 2.35 M/uL (4.7-6.1); White Blood Count 5.26 K/uL (4.8-10.8)
[2018-06-06 08:08] LABS: Albumin Level 2.5 gm/dl (3.4-5.0); Bilirubin Direct 1.2 mg/dl (0-0.2); Calcium 8.2 mg/dl (8.5-10.1); Creatinine Clr Calc Pharmacy 115.8 ml/min; Est GFR (African American) 105.3; Est GFR (Non-African American) 90.9; Potassium 4.2 mmol/L (3.5-5.1)
[2018-06-06 08:11] LABS: Macrocytosis Present; Polychromasia 1+
[2018-06-06 08:18] LABS: Bilirubin,Total 2.3 mg/dl (0.2-1); Total Protein 5.1 gm/dl (6.4-8.2)
--- NOTE | 2018-06-06 09:08 | XRay Report ---
XR chest 1V portable HISTORY: 67 years-old Male chest tube follow up follow-up study in a patient with right-sided chest tube COMPARISON: Chest radiograph 06/05/2018, CT abdomen and pelvis 06/03/2018 TECHNIQUE: Portable AP view of the chest FINDINGS: Cardiac silhouette is enlarged, unchanged. Calcification of the thoracic arch. Stable positioning of the right-sided chest tube. Unchanged moderate right pleural effusion with right lung base opacities. The left lung is clear. No overt pulmonary edema. No pneumothorax. Right-sided rib fractures redemon strated. Degenerative changes of the shoulders and spine. IMPRESSION: 1. Stable positioning of the right-sided chest tube. 2. Unchanged moderate right pleural effusion with right lung base opacities. 3. No pneumothorax. 4. Cardiomegaly. The above report was generated using voice recognition software. It may contain grammatical, syntax o r spelling errors. Electronically signed by: Jag Forrest M.D. 06/06/2018 9:07 AM
[2018-06-06] MEDS: OXYCODONE HCL 10 MG TABCR (OXYCONTIN) PO SCH ×2 (09:21→21:39)
[2018-06-06] MEDS: OXYCODONE HCL IR 5 MG TAB (IMMEDIATE RELEASE) PO PRN ×2 (09:21→19:59)
[2018-06-06] MEDS: FOLIC ACID 1 MG TAB PO SCH (09:22)
[2018-06-06] MEDS: METOPROLOL SUCC 50MG EXT REL TAB PO SCH (09:22)
[2018-06-06] MEDS: FUROSEMIDE 40 MG TAB PO SCH (09:23)
[2018-06-06] MEDS: SPIRONOLACTONE 25 MG TAB PO SCH ×2 (09:23→21:40)
[2018-06-06] MEDS: PANTOprazole 40 MG TAB PO SCH (09:23)
[2018-06-06] MEDS: LIDOCAINE 5% 1 PATCH TD SCH (09:24)
[2018-06-06] MEDS: ENOXAPARIN INJ 40 MG/0.4 ML SYR SQ SCH (09:24)
[2018-06-06] MEDS: BUDESONIDE/FORMOTEROL FUMARATE 160/4.5 60 PUFFS/INHALER INH SCH ×2 (09:25→21:40)
[2018-06-06] MEDS: ATENOLOL 50 MG TABLET PO SCH ×2 (09:25→21:40)
[2018-06-06] MEDS: POLYETHYLENE (MIRALAX) 17 GM PACK PO SCH (09:25)
--- NOTE | 2018-06-06 11:09 | Progress Note ---
DATE: 06/06/2018 SUBJECTIVE: Mr. Zarco was seen today and he looks better. His breath sounds are better. His edema is still marked. He has subcutaneous edema which is pitting in his abdominal area. He also has ecchymosis around his umbilical area which is rather marked really. He is still complaining of pain from his fractured ribs which is not surprising. The drainage has become much clearer and more serous. He is requiring no oxygen. He put out 1500 mL yesterday, but I am quite pleased with him. His hemoglobin is 7.9 today. His sodium is 129 and his BUN and creatinine are 16 and 0.82 respectively. We will continue draining this for the time being. Again, I would be careful of hepatic hydrothorax and keeping his drain in place [employer] is not an option, but currently I think it has helped him. NANNETTE
--- NOTE | 2018-06-06 13:13 | Pulmonology Progress Note ---
Date of Service June 06, 2018 Assessment & Plan (1) History of thoracentesis: Impression: 1. Hemothorax until proven otherwise. 2. Right-sided rib fractures 7 through 10. 3. Liver cirrhosis. 4. Anasarca. 5. History of COPD, stable. 6. A. fib, with RVR, not anticoagulated due to recent falls. 7. History of alcoholism. 8. History of hepatocellular carcinoma status post embolization and chemotherapy. 9. Morbid obesity with likely obstructive sleep apnea as well. 10. Chronic hyponatremia. Secondary to his liver cirrhosis, appears to be worsening in the past 24 hours likely from fluid overload after stopping the Lasix. 12. Atelectasis of the right lower lobe and right middle lobe due to compression from hemothorax. Plan: 1. Chest tube output has been less than 400, I will place it to waterseal only. 2. Watch the hematocrit as it has been dropping down slowly. 3. No further leaking noted from the chest tube site. 4. Obtain chest CT without IV contrast. 5. Resume Lasix 40 mg p.o. daily. 6. Continue albuterol and Symbicort. 7. Resume Lovenox 40 mg subcu daily for DVT prophylaxis. 8. Continue metoprolol succinate 50 mg p.o. and digoxin 0.125 mg daily. 9. Appreciate GI input. 10. Appreciate thoracic surgery input. 11. Low-salt diet. 12. Remove Killian catheter. 13. Daily labs. Watch for the sodium, BUN and creatinine, H&H. 14. Ambulate the patient. 15. Continue spironolactone. 16. Discussed with the staff in details. 17. Discussed with the at the bedside. Thank you, will follow. Subjective The patient continued to feel better, minimal chest pain only in the anterior part of the chest, has not been moving out of the bed, chest tube continues to drain approximately over 400 per shift. Fluid are clearing, urine output is adequate. No events overnight. Review of Systems Review of Systems: Vital signs are stable, denies constitutional symptoms, minimal chest pain only anteriorly, no cough or hemoptysis, no abdominal pain, remains with edema in the periphery, the rest of his review of system otherwise was unremarkable. Physical Exam 2 Physical Exam: Vital signs are stable, S1-S2 A. fib, rate controlled, distant breath sounds, morbidly obese, abdomen is benign, 2+ edema in the periphery. Results & Data Vital Signs (Past 12 Hours) Vital Signs Temp Pulse Resp BP BP Pulse Ox 06/06/18 11:15 37.2 C 102 H 102/67 06/06/18 11:10 86 18 90 06/06/18 07:29 118 H 16 93 06/06/18 07:04 36.8 C 96 H 18 104/67 97 06/06/18 04:00 36.7 C 61 18 96/60 L 96 Laboratory Results Labs were reviewed personally which showed normal leukocytes, hematocrit is drifting down to 23, sodium is stable at 129 and the rest of his labs are within acceptable limits. Diagnostic Findings Chest x-ray showed persistent atelectasis of the right lower lobe, pleural effusion is minimal, chest tube in place.
--- NOTE | 2018-06-06 14:30 | CT Scan Report ---
CT chest wo con CT DOSE: 987.14 mGy.cm CLINICAL HISTORY: 67 years-old Male with follow up hemothorax. Follow-up study in a patient with rec ent hemothorax TECHNIQUE: Multiaxial CT images of the chest were performed without contrast. A dose lowering techni que was utilized adhering to the principles of ALARA. COMPARISON: Chest radiograph of same day, CT abdomen and pelvis 06/03/2018, CTA chest 05/15/2018 FINDINGS: Normal appearance of the thyroid. Calcified subcarinal and right hilar lymph nodes compatible with pr ior granulomatous disease. Cardiomegaly with coronary arterial calcifications. No thoracic aortic ane urysm. Moderate emphysema. The left lung is generally clear. Linear 4 mm solid nodule of the basal left lowe r lobe is unchanged and likely benign. Hydropneumothorax on the right with trace amount of pleural ai r. Moderate amount of pleural fluid of the right hemithorax has decreased in size from comparison and the fluid is predominantly simple. Right basilar consolidation suggest correlation atelectasis with pulmonary contusion. There is a drainage catheter noted within a fluid collection about the posterior lateral right chest wall which demonstrates fluid and air and has decreased in size from comparison study now measuring approximately 8.6 x 2.0 cm in AP and transverse dimension, previously 16.5 x 3.5 cm. Moderate subcutaneous edema about the chest and abdominal wall. Layering hemorrhage is noted abou t the right lateral abdominal wall with deep tissue air, 11.0 x 2.2 cm. Unchanged 6.3 cm lesion of the left adrenal limb with macroscopic fat attenuation suggestive of a adr enal myolipoma. Cirrhosis. Cholelithiasis. Diaphragms defect with herniation of mesenteric fat into t he right pleural cavity and lateral right hemithorax redemonstrated. Multiple displaced lower right r ib fractures redemonstrated. Denies appearance of the bones. Degenerative changes of the shoulders an d spine. IMPRESSION: 1. Multiple displaced acute right-sided rib fractures redemonstrated. 2. Diaphragmatic defect with herniation of peritoneal fat into the right hemithorax and lateral right chest wall again noted. 3. Right-sided hydropneumothorax with decreased amount of pleural fluid. The pneumothorax is very sm all in size. 4. Decreased fluid collection about the posterior lateral right hemithorax with associated drainage c atheter. 5. Improved aeration of the right lower lobe with persistent bibasilar opacities suggestive of atelec tasis with pulmonary contusion. 6. Cirrhosis. 7. Emphysema. Electronically signed by: Jag Forrest M.D. 06/06/2018 2:27 PM
[2018-06-06] MEDS ORDERED: SODIUM CHLORIDE 0.9% 250 ML IV PRN (15:29)
[2018-06-06] MEDS: DIGOXIN 0.125 MG TAB PO SCH (15:58)
[2018-06-06 15:59] LABS: Hematocrit (blood only) 25.5 % (42-52); Hemoglobin 8.6 g/dL (14.0-18.0)
--- NOTE | 2018-06-06 17:00 | Procedure Note ---
Procedure Note Date of Service June 06, 2018 Note I have reviewed the chest CT done in this patient, he does have pleural effusion, now the chest tube it seems to be dislodged to the subcutaneous tissue outside the chest cavity, possibly during nursing care, the sutures were removed and a dressing was removed, the chest tube was removed and Xeroform in addition to 4 x 4 applied topically, the last output of the chest tube was 1200 mL, repeat chest x-ray after removal of the chest tube, in case of recurrence, repeating placement of the chest tube would be indicated. I will start aggressive diuresis with Lasix of 40 mg IV every 8 hours for the next 24 hours. Thank you for the assistance of the nursing staff. Coding
--- NOTE | 2018-06-06 17:15 | XRay Report ---
XR chest 1V portable HISTORY: 67 years-old Male chest tube removal status post right-sided chest tube removal COMPARISON: Chest CT of same day TECHNIQUE: Portable AP view the chest FINDINGS: Cardiac mediastinal and hilar silhouettes are unchanged. The left lung is clear. Tiny right apical pn eumothorax redemonstrated. Moderate amount of pleural fluid at the right lung base. Status post remov al of the previously noted drainage catheter. Unchanged right midlung and right lung base opacities. Multiple displaced acute right-sided rib fractures redemonstrated. Calcification the thoracic aortic arch. IMPRESSION: 1. Status post removal of the right-sided chest drainage catheter. 2. Unchanged appearance of the right-sided hydropneumothorax with right midlung and right lung base o pacities. 3. Multiple acute displaced right-sided rib fractures redemonstrated. The above report was generated using voice recognition software. It may contain grammatical, syntax o r spelling errors. Electronically signed by: Jag Forrest M.D. 06/06/2018 5:14 PM
[2018-06-06] MEDS: FUROSEMIDE 40 MG in SYRINGE 0 ML IV SCH (17:58)
[2018-06-07] MEDS: FUROSEMIDE 40 MG in SYRINGE 0 ML IV SCH ×2 (01:16→07:52)
[2018-06-07] MEDS: ALBUMIN 25% 50 ML IV SCH ×4 (03:46→22:05)
[2018-06-07 05:59] LABS: Basophils # (auto) 0.01 K/uL (0-0.2); Basophils % (auto) 0.2 %; Eosinophils # (auto) 0.22 K/uL (0-0.5); Eosinophils % (auto) 4.7 %; Hematocrit (blood only) 24.5 % (42-52); Hemoglobin 8.2 g/dL (14.0-18.0); Immature Granulocytes # (auto) 0.02 K/uL (0.00-0.02); Immature Granulocytes % (auto) 0.4 %; Lymphocytes # (auto) 0.76 K/uL (1.2-3.4); Lymphocytes % (auto) 16.4 %; Mean Corpuscular Hgb Conc 33.5 g/dL (32-36); Mean Corpuscular Volume 97.6 fL (80-100); Mean Platelet Volume 9.3 fL (7.4-10.4); Monocytes # (auto) 0.69 K/uL (0.11-0.59); Monocytes % (auto) 14.9 %; Neutrophils # (auto) 2.94 K/uL (1.4-6.5); Neutrophils % (auto) 63.4 %; Platelet Count 123 K/uL (130-400); RDW Coefficient of Variation 18.6 % (11.5-14.5); RDW Standard Deviation 65.1 fL (36.4-46.3); Red Blood Count 2.51 M/uL (4.7-6.1); White Blood Count 4.64 K/uL (4.8-10.8)
[2018-06-07 06:31] LABS: Albumin Level 2.9 gm/dl (3.4-5.0); BUN Creatinine Ratio 18.3 (10-20); Calcium 7.9 mg/dl (8.5-10.1); Creatinine Clr Calc Pharmacy 135.7 ml/min; Est GFR (African American) 112.4; Magnesium 1.9 mg/dl (1.8-2.4); Potassium 3.7 mmol/L (3.5-5.1)
[2018-06-07 06:34] LABS: Albumin Globulin Ratio 1.1 (0.9-2); Bilirubin,Total 2.6 mg/dl (0.2-1); Globulin 2.6 gm/dl (2.5-4.0); Phosphorus 2.5 mg/dl (2.5-4.9); Total Protein 5.5 gm/dl (6.4-8.2)
[2018-06-07] MEDS: ALBUT/IPRATROP 3MG/0.5MG NEB 3 ML VIAL NEB SCH ×4 (07:17→19:34)
[2018-06-07] MEDS: PANTOprazole 40 MG TAB PO SCH (07:51)
[2018-06-07] MEDS: METOPROLOL SUCC 50MG EXT REL TAB PO SCH (07:51)
[2018-06-07] MEDS: SPIRONOLACTONE 25 MG TAB PO SCH ×2 (07:52→21:07)
[2018-06-07] MEDS: LIDOCAINE 5% 1 PATCH TD SCH (07:52)
[2018-06-07] MEDS: FOLIC ACID 1 MG TAB PO SCH (07:52)
[2018-06-07] MEDS: ENOXAPARIN INJ 40 MG/0.4 ML SYR SQ SCH (07:52)
[2018-06-07] MEDS: POLYETHYLENE (MIRALAX) 17 GM PACK PO SCH ×3 (07:53→20:37)
[2018-06-07] MEDS: ATENOLOL 50 MG TABLET PO SCH ×2 (07:53→21:07)
[2018-06-07] MEDS: BUDESONIDE/FORMOTEROL FUMARATE 160/4.5 60 PUFFS/INHALER INH SCH ×2 (07:53→21:06)
[2018-06-07] MEDS: OXYCODONE HCL 10 MG TABCR (OXYCONTIN) PO SCH ×2 (07:57→20:53)
--- NOTE | 2018-06-07 08:20 | Family Medicine Progress Note ---
Date of Service June 07, 2018 Assessment & Plan (1) Pleural effusion, right: Patient with recurrent right sided pleural effusion, s/p thoracentesis on 05/22 with 350mL bloody fluid removed. Possibly traumatic in setting of multiple rib fractures. Patient with significant pain, tachypnea, requiring minimal O2 to maintain saturations. Patient also with significant anasarca h/o cirrhosis a nd CHF, recurrence of hemothorax vs other fluid accumulation. Overnight of 06/03-06/04 patient had increasing oxygen requirements and tachycardia unresponsive to Lopressor. Chest x-ray was obtained showing a worsening pleural effusion Dr. Velazco was contacted and recommended transfer to the ICU. 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 This likely explains the diffuse ecchymosis on his right side. This injury likely happened during prior presentation and fluid accumulation tamponaded not at the vessel. Upon thoracocentesis during this hospital admission the tamponade was removed and the vessel allowed to bleed. -Supplemental O2 a needed to maintain sats 92%, currently 2L -Continuous pulse oximetry -Please a course of CTX forUTI -Chest tube DC'd by pulmonary -Aggressive Lasix to remove fluid 40 mg every 8 hours -CT surgery consulted (2) Multiple fractures of ribs: Patient with fractures of ribs 7-10 mid-axillary line, diagnosed by CT during last hospital admission. Possibly secondary to severe coughing in setting of recent PNA/bronchitis. Significant pain. unclear etiology see subjective above -Consult pain management appreciate recommendations -resume Oxycontin 10mg po BID -resume Oxycodone 5mg po q 6 hours -morphine to 2 mg IV every 2 hours as needed -Lidoderm patch -Bowel regimen MiraLAX scheduled 3 times daily, Colace prn -Incentive spirometry q2h while awake -Conventionally rib fractures are no longer repaired, furthermore with this pa stephenie's numerous comorbidities he is a poor surgical candidate. -The patient will need need [facility]iary on discharge to ensure he does not reinjure his intercostal vasculature (3) Cirrhosis: Patient with history of liver cirrhosis thought to be secondary to EtOH abuse. Child Class B, MELD score =11. MRI performed on 01/11/18 with two lesions suspicious for HCC. AFP level on 04/29/18 was 22.8 (relatively stable, was 27.9 on 07/23/17 and 18.9 on 01/18/18). Patient reports that he follows with Dr. Petty for this and has been doing well. Patient with anasarca today. Patient has been on multiple courses of Prednisone over the past month which is most likely contributing to fluid retention. Is not encephalopathic, does not appear to have significant ascites, liver labs are essentially unchanged from prior. Do not suspect decompensated cirrhosis. Weight is 120kg, was 136kg on discharge but patient reports appx 15 pound gain over the last 2 weeks. Mildly elevated K at 5.2. -GI signed off -Lasix 40 mg iv daily every 8 hours -Spironolactone 50 mg p.o. twice daily -Low Na/CC diet -Daily weights -Repeat LFTs in AM -Potassium 3.7 this morning given 20 mEq p.o. -Daily BMP (4) COPD (chronic obstructive pulmonary disease): Patient with COPD, +diffuse wheezing noted on exam. Satting well on room air -Supplemental O2 PRN to maintain sats 92% -DuoNebs q 6 hours -Albuterol q 2 hours PRN -Will not continue steroids at this time (5) Hypertension: Blood pressure well controlled at present no longer hypotensive -Continue Atenolol -Started on metoprolol succinate 50 mg p.o. daily -Diuretics as above -Continue to monitor (6) Rapid atrial fibrillation: Patient with history of AF . Intermittent tachycardia currently pulse is 102. Tachycardia likely secondary to pain and poor oxygenation secondary to pleural effusion -Treatment of pain as above, supplemental O2 -Continue Atenolol BID -Metoprolol succinate 50 mg p.o. daily -Telemetry monitoring (7) Hyponatremia: Vn=845. Near baseline. Patient is on salt tablets at home. -DC salt tablets -Diuresis as above -Fluid restriction 2L -Daily BMP -Started on albumin 25 g every 6 hours for 12 doses secondary to leaking of osmotic fluid -If sodium continues downtrending can consider hypertonic saline and/or resumption of salt tabs -Liver function studies normal (8) Abdominal wall contusion: H/H stable. Patient with significant abdominal pain -Pain control as above PT/OT evaluation today F/E/N -low-salt diet Ppx -Lovenox Code -Full per discussion with patient Dispo -telemetry moving towards discharge Subjective Patient laying in bed this morning in no acute distress. Patient reported doing well overnight although having some difficulty with sleeping secondary to the hospital and muscle of the hospital. Yesterday his chest tube was placed to waterseal and subsequently moved in the evening. Patient reports tolerating his diet, voiding on his own, sleeping. Patient has not had a bowel movement in . Discussion with patient about prognosis, discharge planning, will have PT see him today likely will need to [facility] on discharge. Answered all questions no acute concerns at present. Patient denies fevers chills nausea vomiting diarrhea constipation shortness of breath chest pain congestion vision changes or other signs or symptoms of acute infectious process Physical Exam Physical Exam: General: Obese male in no acute distress Eyes: EOMI/PERRLA Neck: Trachea midline, normal to visual inspection, negative JVD Chest: Clear to auscultation bilaterally no wheezes rales or rhonchi, chest tube in place no air leaks draining serosanguineous fluid today more serous in nature Cardiac: Tachycardic, irregularly irregular, normal S1 and S2, did not appreciate murmurs rubs or gallops 2+ pitting edema to the knee GI: Abdomen is significantly distended tender to palpation over the lower abdomen, no appreciable masses, ecchymosis resolving in the periumbilical area extending to his right flank and up the right costal's improving MSK: Moves all extremities Skin: Warm dry and intact, significant ecchymosis throughout his body. The worst patch is described above Neuro: Calm cooperative AAO x4 Results & Data Vital Signs (Past 12 Hours) Vital Signs Temp Pulse Resp BP BP Pulse Ox 06/07/18 08:05 36.4 C L 86 20 127/77 100 06/07/18 07:17 82 18 90 06/07/18 04:00 36.6 C 89 20 100/62 93 06/06/18 22:47 36.6 C 97 H 20 103/69 91 06/06/18 22:32 36.8 C 90 18 95/52 L 92 06/06/18 21:38 36.7 C 90 18 104/69 91 Laboratory Results 06/07/18 05:41 06/07/18 05:41 06/07/18 06/07/18 06/06/18 Range/Units 05:41 05:41 15:45 WBC 4.64 L (4.8-10.8) K/uL RBC 2.51 L (4.7-6.1) M/uL Hgb 8.2 L 8.6 L (14.0-18.0) g/dL Hct 24.5 L 25.5 L (42-52) % MCV 97.6 (80-100) fL MCH 32.7 (25-34) pg MCHC 33.5 (32-36) g/dL RDW Std Deviation 65.1 H (36.4-46.3) fL RDW Coeff of Zack 18.6 H (11.5-14.5) % Plt Count 123 L (130-400) K/uL MPV 9.3 (7.4-10.4) fL Immature Gran % (Auto) 0.4 % Neut % (Auto) 63.4 % Lymph % (Auto) 16.4 % [place] % (Auto) 14.9 % Eos % (Auto) 4.7 % Baso % (Auto) 0.2 % Immature Gran # (Auto) 0.02 (0.00-0.02) K/uL Neut # (Auto) 2.94 (1.4-6.5) K/uL Lymph # (Auto) 0.76 L (1.2-3.4) K/uL [place] # (Auto) 0.69 H (0.11-0.59) K/uL Eos # (Auto) 0.22 (0-0.5) K/uL Baso # (Auto) 0.01 (0-0.2) K/uL Sodium 128 L (136-145) mmol/L Potassium 3.7 (3.5-5.1) mmol/L Chloride 92 L (98-107) mmol/L Carbon Dioxide 31 (21-32) mmol/L Anion Gap 5.0 (3-11) BUN 13 (7-18) mg/dl Creatinine 0.70 (0.6-1.4) mg/dl Est Cr Clr Drug Dosing 135.7 ml/min Est GFR ( Amer) 112.4 Est GFR (Non-Af Amer) 97.0 BUN/Creatinine Ratio 18.3 (10-20) Glucose 95 (70-99) mg/dl Calcium 7.9 L (8.5-10.1) mg/dl Phosphorus 2.5 (2.5-4.9) mg/dl Magnesium 1.9 (1.8-2.4) mg/dl Total Bilirubin 2.6 H (0.2-1) mg/dl AST 39 H (15-37) U/L ALT 34 (12-78) U/L Alkaline Phosphatase 122 H (45-117) U/L Total Protein 5.5 L (6.4-8.2) gm/dl Albumin 2.9 L (3.4-5.0) gm/dl Globulin 2.6 (2.5-4.0) gm/dl Albumin/Globulin Ratio 1.1 (0.9-2) Blood Type Antibody Screen Crossmatch 06/06/18 06/04/18 Range/Units 07:24 20:01 WBC (4.8-10.8) K/uL RBC (4.7-6.1) M/uL Hgb (14.0-18.0) g/dL Hct (42-52) % MCV (80-100) fL MCH (25-34) pg MCHC (32-36) g/dL RDW Std Deviation (36.4-46.3) fL RDW Coeff of Zack (11.5-14.5) % Plt Count (130-400) K/uL MPV (7.4-10.4) fL Immature Gran % (Auto) % Neut % (Auto) % Lymph % (Auto) % [place] % (Auto) % Eos % (Auto) % Baso % (Auto) % Immature Gran # (Auto) (0.00-0.02) K/uL Neut # (Auto) (1.4-6.5) K/uL Lymph # (Auto) (1.2-3.4) K/uL [place] # (Auto) (0.11-0.59) K/uL Eos # (Auto) (0-0.5) K/uL Baso # (Auto) (0-0.2) K/uL Sodium (136-145) mmol/L Potassium (3.5-5.1) mmol/L Chloride (98-107) mmol/L Carbon Dioxide (21-32) mmol/L Anion Gap (3-11) BUN (7-18) mg/dl Creatinine (0.6-1.4) mg/dl Est Cr Clr Drug Dosing ml/min Est GFR ( Amer) Est GFR (Non-Af Amer) BUN/Creatinine Ratio (10-20) Glucose (70-99) mg/dl Calcium (8.5-10.1) mg/dl Phosphorus (2.5-4.9) mg/dl Magnesium (1.8-2.4) mg/dl Total Bilirubin 2.3 H (0.2-1) mg/dl AST (15-37) U/L ALT (12-78) U/L Alkaline Phosphatase 127 H (45-117) U/L Total Protein 5.1 L (6.4-8.2) gm/dl Albumin (3.4-5.0) gm/dl Globulin (2.5-4.0) gm/dl Albumin/Globulin Ratio (0.9-2) Blood Type A Positive Antibody Screen NEGATIVE Crossmatch See Detail Medications Administered Current Inpatient Medications Acetaminophen (Tylenol) 650 mg PO Q6H PRN PRN Reason: Pain or Fever Stop: 07/02/18 15:53 Albuterol (Duoneb) 3 ml NEB QIDR [facility] Stop: 07/02/18 15:59 Last Admin: 06/07/18 07:17 Dose: 3 ml Documented by: Albuterol (Ventolin 0.5% 2.5mg/0.5ml) 2.5 mg NEB Q2H PRN PRN Reason: SOB/Wheeze Stop: 07/02/18 15:53 Last Admin: 06/04/18 00:56 Dose: 2.5 mg Documented by: Atenolol (Tenormin) 100 mg PO BID [facility] Stop: 07/02/18 20:59 Last Admin: 06/07/18 07:53 Dose: 100 mg Documented by: Benzonatate (Tessalon Perle) 100 mg PO TID PRN PRN Reason: cough Stop: 07/02/18 16:29 Budesonide/Formoterol Fumarate (Symbicort 160mcg/4.5mcg) 2 puffs INH BID [facility] Stop: 07/05/18 08:59 Last Admin: 06/07/18 07:53 Dose: 2 puffs Documented by: Digoxin (Lanoxin) 0.125 mg PO DAILY@1600 [facility] Stop: 07/05/18 15:59 Last Admin: 06/06/18 15:58 Dose: 0.125 mg Documented by: Docusate Sodium (Colace) 100 mg PO BID PRN PRN Reason: Constipation Stop: 07/02/18 15:53 [facility] [place] Stop: 07/05/18 08:59 Last Admin: 06/07/18 07:52 Dose: 40 mg Documented by: Folic Acid (Folvite) [facility] [place] Stop: 07/03/18 08:59 Last Admin: 06/07/18 07:52 Dose: 7 mg Documented by: Albumin Human (Albumin 25%) 50 mls @ 50 mls/hr IV Q6H [facility] Stop: 06/08/18 04:59 Last Infusion: 06/07/18 04:49 Dose: Infused Documented by: Sodium Chloride (Nss) 250 mls @ 15 mls/hr IV .[id number] PRN PRN Reason: For Transfusion Stop: 07/06/18 15:28 Furosemide 40 mg/ Syringe 4 mls @ 4 mls/min IV Q8H [facility] Stop: 06/07/18 09:00 Last Admin: 06/07/18 07:52 Dose: 4 mls/min Documented by: Lidocaine (Lidoderm 5%) 1 patch TD [facility] Stop: 07/02/18 16:29 Last Admin: 06/07/18 07:52 Dose: Not Given Documented by: Metoprolol Succinate (Toprol Xl) 50 mg PO [facility] Stop: 07/05/18 08:59 Last Admin: 06/07/18 07:51 Dose: 50 mg Documented by: Metoprolol Tartrate (Lopressor) 5 mg IV Q4 PRN PRN Reason: tachycardia Stop: 07/02/18 15:53 Last Admin: 06/03/18 23:31 Dose: 5 mg Documented by: Miscellaneous (Remove Lidoderm Patch) 1 ea N/A DAILY@2100 [facility] Stop: 07/02/18 20:59 Last Admin: 06/06/18 21:40 Dose: Not Given Documented by: Morphine Sulfate (Morphine Sulfate) 2 mg IV Q4H PRN PRN Reason: Pain Stop: 06/19/18 15:18 Naloxone HCl (Narcan) 0.1 mg IV Q5M PRN; Protocol PRN Reason: Oversedation/Resp Depression Stop: 06/18/18 08:36 Ondansetron HCl (Zofran) 4 mg IV Q6H PRN PRN Reason: Nausea Stop: 07/02/18 15:53 Oxycodone HCl (Roxicodone Immediate Rel) 5 mg PO Q6H PRN PRN Reason: Pain Stop: 06/19/18 15:16 Last Admin: 06/06/18 19:59 Dose: 5 mg Documented by: Oxycodone HCl (Oxycontin) 10 mg PO BID [facility] Stop: 06/19/18 20:59 Last Admin: 06/07/18 07:57 Dose: 10 mg Documented by: Pantoprazole Sodium (Protonix) 40 mg PO QAM [facility] Stop: 07/03/18 08:59 Last Admin: 06/07/18 07:51 Dose: 40 mg Documented by: Polyethylene Glycol (Miralax Powder Packet) 17 gm PO DAILY [facility] Stop: 07/03/18 09:59 Last Admin: 06/07/18 07:53 Dose: Not Given Documented by: Spironolactone (Aldactone) 50 mg PO BID [facility] Stop: 07/02/18 20:59 Last Admin: 06/07/18 07:52 Dose: 50 mg Documented by: Resident Activity Tracking Resident Involvement: Resident Care Provided Care Provided: Adult Hospital Medicine (1) Multiple fractures of ribs Encounter type: initial encounter Fracture type: closed Laterality: right Qualified Code(s): S22.41XA - Multiple fractures of ribs, right side, initial encounter for closed fracture (2) Abdominal wall contusion Encounter type: initial encounter Qualified Code(s): S30.1XXA - Contusion of abdominal wall, initial encounter (3) Cirrhosis Ascites presence: with ascites Hepatic cirrhosis type: alcoholic cirrhosis Qualified Code(s): K70.31 - Alcoholic cirrhosis of liver with ascites (4) COPD (chronic obstructive pulmonary disease) COPD type: unspecified COPD Qualified Code(s): J44.9 - Chronic obstructive pulmonary disease, unspecified (5) Hypertension Hypertension type: essential hypertension Qualified Code(s): I10 - Essential (primary) hypertension
[2018-06-07] MEDS ORDERED: POTASSIUM CHLORIDE 20 MEQ TABCR PO STA (08:23)
[2018-06-07] MEDS: OXYCODONE HCL IR 5 MG TAB (IMMEDIATE RELEASE) PO PRN ×2 (12:06→18:24)
--- NOTE | 2018-06-07 12:49 | Pulmonology Progress Note ---
Date of Service June 07, 2018 Assessment & Plan (1) Pleural effusion, right: pleural effusion with hemopneumothorax. chest tube removed yesterday as malpositioned. still with fluid though leaking from site. would repeat cxr tommorow. if reaccumulating may need further intervention cirrohosis - would be careful of oysterman drainage if has hepatic hydrothorax to avoid protein wasting Subjective still with pain to R chest and some shortness of breath but better. drainage from chest tube site. Physical Exam Physical Exam: Constitutional: Comfortable NAD HEENT: normocephalic atraumatic. CV: RRR nl s1,s2 no murmurs rubs or gallops Lungs: clear to auscultation bilaterally. no accessory muscle use Abd: soft nontender nondistended. normal bowel sounds Ext: no edema. no cyanosis, no clubbing Skin: warm dry Neuro: alert and oriented. moving all extremities Psych: anxious Results & Data Vital Signs (Past 12 Hours) Vital Signs Temp Pulse Pulse Resp BP Pulse Ox 06/07/18 12:00 36.5 C 92 H 18 91/56 L 91 06/07/18 11:33 87 18 90 06/07/18 10:50 97 06/07/18 08:05 36.4 C L 86 20 127/77 100 06/07/18 08:00 88 06/07/18 07:17 82 18 90 06/07/18 04:00 36.6 C 89 20 100/62 93
--- NOTE | 2018-06-07 13:06 | Progress Note ---
DATE: 06/07/2018 Levi Zarco was seen today. He looks much improved. He is on room air with 92% saturations. Pulse rate down in the 80s. In reviewing his labs his hemoglobin has dropped down to 8.2. His white count is 4640. His lungs sound a bit better to me. His pleural catheter was pulled yesterday. I thought his CT looked actually pretty good yesterday. The drain which had been removed has really drained his chest quite nicely as well as the subcutaneous collection. I agree with Dr. Valenzuela that I would check an x-ray and it is possible we would offer him another tube. We will see how he looks in the morning.
[2018-06-07] MEDS: DIGOXIN 0.125 MG TAB PO SCH (16:27)
--- OUTSIDE RECORDS SUMMARY | 2018-06-07 20:20 | External Medical Summary | Continuity of Care Document ---
:1950 Author Name Henrik Lauren, Provider Address Unavailable Unavailable , Care Team Providers Name Role Phone Darryl Roque Unavailable [email or web address], [email or web address] DELGADO M.D., DEAN Martínez Unavailable Unavailable Unavailable Unavailable Unavailable Problems Lower leg edema (782.3) (R60.0) Leg weakness, bilateral (729.89) (R29.898) Chronic right-sided CHF (congestive heart failure) (428.0) ( I50.812) Chronic obstructive pulmonary disease (496) (J44.9) Liver mass (573.9) (R16.0) Foot fracture (825.20) (S92.909A) Vitamin D deficiency (268.9) (E55.9) Encounter for screening for malignant neoplasm of colon (V76 .51) (Z12.11) Encounter for screening for malignant neoplasm of prostate ( V76.44) (Z12.5) Encounter for PPD test (V74.1) (Z11.1) Atherosclerosis of [place] coronary artery of [place] heart (4 14.01) (I25.10) Atrial fibrillation (427.31) (I48.91) Pulmonary HTN (416.8) (I27.20) LVH (left ventricular hypertrophy) (429.3) (I51.7) Portal hypertension (572.3) (K76.6) Ascites (789.59) (R18.8) Hepatic steatosis (571.8) (K76.0) Obesity, unspecified (278.00) (E66.9) Hyperkalemia (276.7) (E87.5) Internal hemorrhoids (455.0) (K64.8) Diverticulosis (562.10) (K57.90) Dermatitis, stasis (454.1) (I87.2) Hypercholesterolemia (272.0) (E78.00) Incomplete emptying of bladder (788.21) (R33.9) 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 30) Alcoholism in recovery (303.93) (F10.21) Fibula fracture (823.81) (S82.409A) Hyponatremia (276.1) (E87.1) Hypertension (401.9) (I10) Left adrenal mass (255.9) (E27.9) Urinary frequency (788.41) (R35.0) Unspecified cirrhosis of liver (571.5) (K74.60) Need for 23-polyvalent pneumococcal polysaccharide vaccine ( V03.82) (Z23) GI bleed (578.9) (K92.2) Allergies and Adverse Reactions No Known Drug Allergies (Allergy) Medications predniSONE 10 MG Oral Tablet; TAKE 4 TAB S ONCE DAILY X3 DAYS, 3 TABS DAILY X3 DAYS, 2 TABS DAILY X3DAYS, THEN 1 TAB DAILY X3 DAYS THEN STOP. KATIANA Lee Start: 11-May-2018 Quantity: 30 Refills: 0 Furosemide 40 MG Oral Tablet; TAKE 1 TABLET BY MOUTH DAILY Leonidas Mcguire Start: 03-Sep-2016 Quantity: 90 Refills: 1 Ventolin HFA 108 (90 Base) MCG/ACT Inhal ation Aerosol Solution; INHALE 1 TO 2 PUFFS EVERY 4 TO 6 HOURS NEEDED. Leonidas Delgado Start: 03-Jul-2017 Quantity: 1 8 GM Inhaler Refills: 5 Folic Acid 1 MG Oral Tablet; TAKE SEVEN TABLETS BY CHANDLER ONCE DAILY KATIANA Simmons Start: 09-Dec-2011 Quantity: 630 Refills: 1 Pantoprazole Sodium 40 MG Oral Tablet De layed Release; TAKE 1 TABLET BY MOUTH ONCE DAILY. Leonidas Delgado Start: 24-Jun-2016 Quantity: 180 Refills: 1 oxyCODONE HCl - 5 MG Oral Capsule; TAKE 1 CAPSULE EVERY 6 HOURS NEEDED FOR PAIN. Start: 25-May-2018 Refills: 0 OxyCONTIN 10 MG Oral Tablet ER 12 Hour A buse-Deterrent; TAKE 1 TABLET EVERY 12 HOURS DAILY. Start: 25-May-2018 Quantity: 20 Refills: 0 Sodium Chloride 1 GM Oral Tablet; take 2 tablets by mo [facility] twice daily Leonidas Delgado Start: 17-Dec-2017 Quantity: 360 Refills: 1 Spironolactone 50 MG Oral Tablet; TAKE 1 TABLET BY CHANDLER TWICE DAILY. KATIANA Simmons Start: 15-Jul-2016 Quantity: 180 Refills: 1 Potassium Chloride ER 20 MEQ Oral Tablet Extended Release; take 2 tabs in am and 2 tabs in pm Leonidas Delgado Start: 12-May-2016 Quantity: 360 Refills: 1 Atenolol 100 MG Oral Tablet; TAKE ONE TABLET BY MOUTH TWICE DAILY KATIANA Simmons Start: 31-Dec-2011 Quantity: 180 Refills: 1 Anoro Ellipta 62.5-25 MCG/INH Inhalation Aerosol Powder Breath Activated; INHALE 1 PUFFS Daily KATIANA Simmons Start: 20-Mar-2017 Quantity: 3 60 Inhaler Pack Refills: 3 Procedures X-ray Chest, PA and Lateral Routine Date: 25-May-2018 DEXA Routine Axial Skeleton (3-5 views) Date: 27-May-2018 Immunizations Influenza On: 23-Oct-2014 13:56 Lot #: [id number], SANOFI [employer] Prevnar 13 Intramuscular Suspension On: 26-Oct-2014 9:05 Lot #: [id number], WYETH Afluria Preservative Free 0.5 ML Intramuscular Suspens ion Prefilled Syringe On: 12-Dec-2015 Fluzone High-Dose Intramuscular Suspension On: 01-Dec-2016 1 5:03 Lot #: [id number], [employer]OFI [employer]UR Pneumococcal polysaccharide vaccine, 23 valent On: 02-Dec-19 17 15:04 Lot #: [id number], MERCK [employer] Twinrix 720-20 Intramuscular Suspension On: 01-Dec-2016 15:0 7 Lot #: [id number], GLAXO JIMÉNEZ VICTOR Tubersol 5 UNIT/0.1ML Intradermal Solution On: 01-Dec-2016 1 5:10 Lot #: [id number], [employer] Social History - Smoking Status Smoker. current status unknown Plan of Treatment Planned Encounters Appointment; Dean Delgado M.D. Start: 08-Jul-2018 10:00 Re quest Planned Observations Planned Goals not documented Results X-ray Chest, PA and Lateral Routine Laboratory: [facility] Diagnostic Imaging [address] [facility] 11-May-2018 10:32 CHEST 2 VIEWS ROUTINE [place], [place] [phone] XRay Report Patient: BREEZY GUNN Admit Date: 9 MR#: [id number] Address1: [address] [place] [address] Acct ID:[id number] Address2: Date: 1950 [facility] Zip: [place] [address] Age: 67 [facility] Sex: M Room/Bed: Att Phy: Darryl Lee III, CRNP Diagnosi s: J44.1 Gemma Phy: Dean Delgado MD Service Date: 05/11/18 Fam Phy: Interpreting Phy: Yasmeen Ga her Admit P hy: Ordering Phy: Darryl Lee III, CR NP cc: XR chest 2V routine HISTORY: 67 years-old Male COPD exacerbation acute on chronic shortness of breath COMPARISON: Chest CT 07/29/19, chest radiograph 07/11/2016 TECHNIQUE : PA and lateral views of the chest FIND INGS: Cardiac silhouette is enlarged, witho ut overt pulmonary edema. No pneumothorax, or pleural effusion. Ill-defined opacities are noted about the posterior basal segment left lower lobe seen best on the lateral projection. Emphysema. Degenerative stanton ges of the shoulders and spine. IMPRESS ION: 1. Ill-defined airspace opacity of the posterior basal segment left lower lobe is suspicious for pneumonia in the appropri ate clinical setting. Follow-up imaging to document resolution is recommended. 2. Emphysema. 3. Cardiomegaly. The above report was generated using voice recognition software. It may contain grammatical, syntaxor spelling errors. Electronically signed by: Jag Forrest M.D. 05/11/2018 10:37 AM Dictated: 05/11/18 1032 Transcrib ed: 05/11/18 1032 X-Ray Chest 1 View Portable (Pending) Laboratory: [facility] C Diagnostic Imaging [address] [facility] 15-May-2018 12:03 X-Ray Chest 1 VW Portable (CXR1P) [place], [place] [phone] XRay Report Chandana t: BREEZY GUNN Admit Date: 9 MR#: [id number] Address1: [address] [facility] Acct ID:[id number] Address2: Date: 1950 [facility] Zip: [place] [address] Age: 67 Location: ED Sex: M Room/Bed: Att Phy: Diagnosis : CHEST PAIN Gemma Phy: Dean Delgado MD Service Da te: 05/15/18 Fam Phy: Interpreting Phy: Darrell Ga her Admit Phy: Ordering Phy: Roberta Yang M.D. cc: XR chest 1V portable HISTORY: 67 years-old Male Dyspnea acut e shortness of breath COMPARISON: [facility] radiograph 05/11/2018 TECHNIQUE: Port able AP view of the chest FINDINGS: Emphysema. The cardiac silhouette is mil dly enlarged, unchanged. Improved aeration o f the left lungbase. No pneumothorax, pleural effusion, focal airspace consolidation o r overt pulmonary edema. Bones of the ches t appear grossly intact. IMPRESSION: 1. Improved aeration of the left lung base. No focal airspace consolidation identified. 2. Mild cardiomegaly. 3. Emphysema. The above report was generated using vo ice recognition software. It may contain grammatical, syntaxor spelling errors. Electronically signed by: Jag Forrest M.D. 05/15/2018 12:05 PM Dictated: 05/15/18 1203 Transcrib ed: 05/15/[address] (Chest for PE)Angiography with Laboratory: [facility] Diagnost ic Imaging [address]. Contrast (Pending) [facility] [place] 15-May-2018 13:38 CT CHEST FOR PE ANGIO WITH [facility], [place] [phone] Scan Report Patient: MARIAH GUNN Admit Date: 9 MR#: [id number] Address1: [address] [facility] Acct ID:[id number] Address2: Date: 1950 [facility] Zip: [place] [address] Age: 67 Location: ED Sex: M Room/Bed: Att Phy: Diagnosis: CHEST PAIN Gemma Phy: Dean Delgado MD Service Da te: 05/15/18 Fam Phy: Interpreting Phy: Darrell Ga her Admit Phy: Ordering Phy: Roberta Yang M.D. cc: CT angio chest PE protocol CT DOSE: 624.13 mGy.cm HISTORY: 67 years-old Male with PE. Acute shortness of breath TECHNIQUE: Multiple CTA im ages of the chest were obtained after the intravenous administration of 93 ml Opti ray 320. Coronal and sagittal MIPS were obt ained from the axial data set and were submitt ed for review. All measurements were obtai antoine according to NASCET criteria. A dose low ering technique was utilized adhering to the principles of ALARA. COMPARISON: CT A chest 07/28/2017, MRI of the abdomen 01/11 FINDINGS: CTA: Moderate multichamber cardiac enlargement. No pericardial effusion. Coronary arterial calcifications are noted. No thoracic ao rtic aneurysm or dissection. There is patency of the imaged great vessels. Moderate mixed plaque formation about the aorta. Reflux of contrast into the IVC and hepatic veins. The pulmonary arterial tree is opacified to level the subsegmental branches and demonstrat es no focal filling defects to suggest pulmona ry thromboembolic disease. CT CHEST : No large thyroid nodule. Mildly prominen t nonspecific mediastinal and hilar lymph nodes. Calcified subcarinal and hilar ly mph nodes compatible with prior granulomatou s disease. No pneumothorax or pleural effusion. Emphysema with moderate bilate ral bronchial wall thickening. There are no suspicious pulmonary nodules or masses. No focal airspace consolidation to suggest pneumonia. Scattered calcified granuloma ta noted throughout the bilateral lungs. Mi ld bibasilar mucous plugging. No overt pulm onary edema. No suspicious pulmonary nodules o r masses identified. Central airways appea r generally patent. Cirrhotic liver disease with small volume of upper abdom inal ascites. Mild nonspecific wall thickenin g of the distal esophagus. Calcification limi puneet noted about the spleen. Previously descr ibed hepatic lesions are better seen on ilda rison MRI. Soft tissues appear unremarkable wi th mild generalized body wall edema and gynecomastia. Bones appear to be intact. No suspicious bony lesions identified. IMPRESSION: 1. Cardiomegaly without acute aortic pathology or evidence of pulmonar y thromboembolic disease. 2. Emphysema w ith moderate bilateral bronchial wall thicke lennie suggestive of bronchitis. 3. No focal airspace consolidation to suggest pneumo momo. 4. Prior granulomatous disease. 5. Cirrhosis with small volume of abdominal ascites. The above report was gener ated using voice recognition software. It may contain grammatical, syntaxor spelling errors. Electronically signed by: Jag Forrest M.D. 05/15/2018 1:52 PM Dictated: 05/15/18 1338 Transcribed: 05/15/18 1338 XR ribs RT min 3V w CXR1V (Pending) Laboratory: [facility] Diagnostic Imaging [address] [place] [address] 16-May-2018 14:26 XR ribs RT min 3V w CXR1V [facility], [place] XRay Report Patient: MARIAH GUNN Admit Date: 9 MR#: [id number] Address1: [address] [facility] Acct ID:[id number] Address2: Date: 1950 [facility] Zip: [place] [address] Age: 67 Location: ED Sex: M Room/Bed: Att Phy: Diagnosis: SIDE PAIN, RIGHT Gemma Phy: Dean Delgado MD Service Da te: 05/16/18 Fam Phy: Interpreting Phy: Kwame Trivedi MD Admit Phy: Ordering Phy: Anselmo Chu DO cc: XR ribs RT min 3V w CXR1V CLINICAL HISTORY: 67 years-old Male presenting with right lower pain. TECHNIQUE: PA view of the chest as well as frontal and oblique views of the right r ibs were obtained. COMPARISON: Chest x -ray from 05/15/2018 and chest CTA from 9. FINDINGS: Atherosclerosis of aortic arch. Cardiac silhouette mildly enlarged. Diff usely coarsened lung markings with mild pulmon jordyn vessel prominence. No focal opacity. No large effusion or pneumothorax.Degenerative ch anges of the spine. No displaced right ri b fracture. IMPRESSION: 1. Cardiomegaly. Otherwise no acute cardiopulmonary disease. 2. No rig ht rib fracture. Electronically signed by: Kwame Trivedi M.D. 05/17/19 2:28 PM Dictated: 05/16/18 142 Transcribed: 05/16/18 1426 X-Ray Chest 1 View Portable (Pending) Laboratory: [facility] C Diagnostic Imaging [facility] 21-May-2018 21:05 X-Ray Chest 1 VW Portable (CXR1P) [place], [place] [phone] XRay Report Patien t: BREEZY GUNN Admit Date: 9 MR#: [id number] Address1: [address] [place] [address] Acct ID:[id number] Address2: Date: 1950 [facility] Zip: [place] [address] Age: 67 Location: ED Sex: M Room/Bed: Att Phy: Diagnosis : CHEST PAIN Gemma Phy: Dean Delgado MD Service Da te: 05/21/18 [facility] Phy: Interpreting Phy: Samson Carlton MD Admit Phy: Ordering Phy: José Miguel Jimenes se, M.D. cc: XR chest 1V portable CLINICA L HISTORY: sob dyspnea COMPARISON AARON DY: 05/16/2017 FINDINGS: Patchy parenchym al infiltrate right base. Mild stable cardiomegaly. Lungs otherwise appear jose ar. Diaphragms are smooth. IMPRESSION: Minimal parenchymal infiltrate right bas e. The above report was gene rated using voice recognition software. It ma y contain grammatical, syntax or spelling errors. Electronically sig antoine by: Samson Carlton M.D. 05/21/2018 9:06 PM Dictated: 05/21/182104 Transcribed: 05/21/182104 CT Abd/Pelvis w/o Contrast (No IV, No Laboratory: [facility] Diagnostic Imaging [address]. Oral) (Pending) [facility] 21-May-2018 21:27 CT ABD/PELVIS NO IV OR ORAL [place] CT Scan Report Patient: MARIAH GUNN Admit Date: 9 MR#: [id number] Address1: [address] [facility] Acct ID:[id number] Address2: Date: 1950 [facility] Zip: [place] [address] Age: 67 Location: ED Sex: M Room/Bed: Att Phy: Diagnosis: CHEST PAIN Gemma Phy: Dean Delgado MD Service Da te: 05/21/18 Fam Phy: Interpreting Phy: Samson Carlton MD Admit Phy: Ordering Phy: José Miguel Jimenes se, M.D. cc: CT abd pelvis wo con CT DOSE : 1620.54 mGy.cm HISTORY: Trauma. Anuj n. right abd contusion and pain, poss hemat glory or ble TECHNIQUE: Multiaxial CT gabe ges of the abdomen and pelvis were performed without contrast. A dose lowering techn ique was utilized adhering to the principles of ALARA. COMPARISON STUDY: 09/05/19 17 FINDINGS: Fractures of the right seven th through 10th ribs in the midaxillary houston e. Right lateral soft tissue contusion. Rig ht chest wall hematoma measuring 9 x 2 cm. Right pleural effusion. Right basilar and/or l ower lobe consolidative change with potential superimposed infiltrate or contusion. Le ft lung base is clear. Liver spleen an d pancreas are grossly unremarkable. Liver again demonstrates a component of the sclerotic change. There is small gallsto ne. Mild cortical scarring of the kidneys. T here is a nodular density of the left adrenal which is unaltered from the prior exam. This contains a component of fat and potentia lly is a mild low lipoma. Bowel pattern is remarkable for scattered colonic diverticulosis. There is no evidence for acute diverticulitis. There is no free f luid within the abdomen or pelvic region. The re is a trace amount of body wall anasarca. Th ere is trace amount of fluid within the mid mesentery, most likely reactive IMPRESSION: 1. Fractures of the ri ght seventh through 10th ribs in the midaxil aleksandr line. 2. Mild body wall anasarca with a superimposed soft tissue contusion of th e lower right chest wall. 3. Right later al chest wall hematoma measuring 9 x 2 cm. 3. Right pleural effusion with components o f a right lower lobe atelectatic/volume loss change. 4. Potential superimposed smal l right basilar infiltrate versus contusio n. 5. Cirrhotic liver unchanged in the prio r study. 6. No acute intra-abdominal or intrapelvic abnormality. 7. Trac e free fluid within the mid mesentery most likely reactive The above report was generated using voice recogni tion software. It may contain grammatical, s yntax or spelling errors. Calixto ruiz signed by: aSmson Carlton M.D. 9 9:34 PM Dictated: 05/21/182126 Transcribed: 05/21/182126 X-ray Chest, bilat decubitus views Laboratory: [facility] D iagnostic Imaging [address] (Pending) [facility] 22-May-2018 10:46 CHEST DECUBS [place], [place] [phone] XRay Report Patient: BREEZY GUNN Admit Date: 9 MR#: [id number] Address1: [address] [facility] Acct ID:[id number] Address2: D ate: 1950 [facility] Zip: [place] [address] Age: 67 Location: 3W Sex: M Room/Bed: W5-2 At t Phy: Connor Katz M.D. Diagnosis: R IB FRACTURES Gemma Phy: Dean Delgado MD Service Date: 05/22/18 Fam Phy: Interpreting Phy: Onur Lane Admit Phy: Tatyana Ferrari D.O. Ordering Phy : Tatyana Ferrari D.O. cc: DECUBITUS CHEST RADIOGRAPH S CLINICAL HISTORY: Pleural effusion. FINDINGS: Right and left lateral decubit us chest x-rays are compared to study dated 05/21/2018 and correlated with chest CT d ated 05/15/[address] abdominal CT dated 05/21/2018. There is a small tomoderate layering right pleural effusion. There i s no evidence of loculation. No left pleural effusion is identified. The heart is enlarged. Emphysema and chronic intersti tial thickening are noted. There is no airspa ce consolidation typical for pneumonia seen on these decubitus views. Atherosclerotic calcification is noted in the thoracic a rodney. IMPRESSION: 1. There is a smal l to moderate layering right pleural effusion . This is similar in appearance to yesterd modesta's abdominal CT scan. 2. No left pleur al effusion is identified. 3. Cardiome linnea and emphysema. Electronically signed by: José Miguel Butler M.D. 05/23/19 10:50 AM Dictated: 05/22/18 104 6 Transcribed: 05/22/18 1046 Ultrasound Abdomen LIMITED (Pending) Laboratory: [facility] Diagnostic Imaging [address] [place] [address] 22-May-2018 10:51 US ABDOMEN LIMITED [place], [place] [phone] Ultrasou nd Report Patient: BREEZY GUNN Admit Date: 9 MR#: [id number] Address1: [address] [place] [address] Acct ID:[id number] Address2: Date: 1950 [facility] Zip: [place] [address] Age: 67 Location: 3W Sex: M Room/Bed: W 355-2 Att Phy: Connor Katz M.D. Diagnosis: R IB FRACTURE S Gemma Phy: Dean Delgado MD Service Date: 05/22/18 Fam Phy: Interpreting Phy: José Miguel Lane Admit Ph y: Tatyana Ferrari D.O. Ordering Phy : Tatyana Ferrari D.O. cc: ULTRASOUND ABDOMINAL WALL CLINICAL HISTORY: Abdominal wall contusi on. COMPARISON STUDY: Abdominal CT dated 05/21/2018. FINDINGS: Real-time, grayscale, and color flow sonography of the right abdominal wall is performed at the site of bruising. Subcutaneous soft tissue ed cecilia and fluid is identified at the site of interest. No organized hematoma is identified. No abnormal vascularity is identified on color imaging. IMPRES CHAZ: Soft tissue edema and subcutaneous fluid is identified at the site of interest. No organized hematoma is seen. Electronically signed by: José Miguel Butler M.D. 05/22/2018 10:52 AM Dictated: 05/22/18 1051 Transcribed: 1051 X-Ray Chest 1 View Portable (Pending) Laboratory: [facility] C Diagnostic Imaging [address] [facility] 22-May-2018 12:05 X-Ray Chest 1 VW Portable (CXR1P) [place], [place] [phone] XRay Report Patien t: BREEZY GUNN Admit Date: 9 MR#: [id number] Address1: [address] [place] [address] Acct ID:[id number] Address2: Date: 1950 [facility] Zip: [place] [address] Age: 67 Location: 3W Sex: M Room/Bed: [facility] Att Phy: Connor Katz M.D. Diagnosi s: R IB FRACTURES Gemma Phy: Dean Delgado MD Service Da te: 05/22/18 Fam Phy: Interpreting Phy: José Miguel Lane Admit Phy: Tatyana Ferrari DKennedyOKennedy Ordering Phy: Ney Whitaker D.O. cc: SINGLE VIEW CHEST CLINICAL HISTORY: Status pos t thoracentesis. FINDINGS: An AP, portable, upright chest radiograph is compared to study dated 05/21/2018. The examination is degraded by portable tech nique and patient rotation. The heart is enla rged and thereis atherosclerotic calcificatio n of the thoracic ureter. The pulmonary vasculature is noncongested. Emphysema a nd chronic interstitial thickening are marquis lar to previous. There is a small residual r ight pleural effusion associated atelectasis. No pneumothorax is seen. The skeletal struc tures are osteopenic. The bony thorax is gross ly intact. IMPRESSION: 1. Cardiom egaly and emphysema. 2. There is trace residual right pleural effusion status p ost thoracentesis. 3. No pneumothorax i s identified. Electronically si gned by: José Miguel Butler M.D. 05/22/2018 12:0 6 PM Dictated: 05/22/18 1205 Transcribed: 05/22/18 1205 X-Ray Chest 1 View Portable (Pending) Laboratory: [facility] Diagnostic Imaging [address] [facility] 02-Jun-2018 10:59 X-Ray Chest 1 VW Portable (CXR1P) [facility], [place] [phone] XRay Report Patinicky t: BREEZY GUNN Admit Date: 9 MR#: [id number] Address1: [address] [place] [address] Acct ID:[id number] Address2: Date: 1950 [facility] Zip: [place] [address] Age: 67 Location: ED Sex: M Room/Bed: Att Phy: Diagnosis : CHEST PAIN Gemma Phy: Dean Delgado MD Service Da te: 06/02/18 Fam Phy: Interpreting Phy: Samson Carlton MD Admit Phy: Ordering Phy: Anselmo Madsen DO cc: XR chest 1V portable CLINICA L HISTORY: Chest Pain dyspnea COMPARI SON STUDY: 05/22/2018 FINDINGS: Stable cardiomegaly. Reaccumulation of a small right pleural effusion. Several old right-side d rib fractures are noted. These appear displa jane. No evidence pneumothorax. Left lung is c lear. IMPRESSION: 1. Moderate stable cardia megaly. 2. Slight increas e in volume of right effusion. 3. Several l ower right displaced rib fractures . These we re not identified on the rib series dated 05/15/2018, and may be an acute to subacut e finding. The above repo rt was generated using voice recognition software. It may contain grammatical, s yntax or spelling errors. Electronically signed by: Samson Carlton M.D. 06/02/2018 11:01 AM Dictated: 06/02/18 1059 Transcribed: 1059 X-Ray Chest 1 View Portable (Pending) Laboratory: [facility] Diagnostic Imaging [address] [facility] 02-Jun-2018 19:28 X-Ray Chest 1 VW Portable (CXR1P) [facility], [place] [phone] XRay Report Chandana t: BREEZY GUNN Admit Date: 9 MR#: [id number] Address1: [address] [facility] Acct ID:[id number] Address2: Date: 1950 [facility] Zip: [place] [address] Age: 67 Location: Sex: M Room/Bed: [place] Att Phy: Tatyana Ferrari D.O. Diagnosis : PAIN,PLEURAL EFFUSION,ANASARCA Gemma Phy: Dean Delgado MD Service Date: 06/02/18 Fam Phy: Solitario Garcia MD Interpretin g Phy: Alek Roblero MD Admit Phy: Mehnaz Ferrari D.O. Ordering Phy: Patel Slater MD cc: X R chest 1V portable HISTORY: rig ht thoracentesis COMPARISON: Chest 06/02/2018. FINDINGS: There is again noted a right-sided pleural effusion. Th is is likely similar in volume to the prior st udy with decrease in the basilar component a nd slight increase in the apical and medial component. Multiple displaced right-side d rib fractures are again noted. The left lung is clear. Theheart remains mildly enlarged. No definite pneumothorax. IMPRESSION: 1. Moderate right pleural effusion is ag ain noted. This is likely similar in volume with slight decrease in the basilar component and increase in the apical and medial compon ent suggesting a partially loculated effusio n. 2. No pneumothorax.. 3. Multiple displ aced right-sided rib fractures are again note d. Electronically signed by: Aileen Roblero M.D. 06/02/2018 7:30 PM Dictated: 06/02/181927 Transcrib ed: 06/02/181927 CT Abd/Pelvis w/o Contrast (No IV, No Laboratory: [facility] [address]) (Pending) [place] [facility] [place] 03-Jun-2018 12:20 CT ABD/PELVIS NO IV OR ORAL CN [facility], [place] CT Scan Report Patient: MARIAH GUNN Admit Date: 9 MR#: [id number] Address1: [address] [facility] Acct ID:[id number] Address2: Date: 1950 [facility] Zip: [place] [address] Age: 67 Location: Sex: M Room/Bed: [place] [address] Att Phy: Angel Jacobson, Diagnosis: PAIN ,PLEURAL EFFUSION,ANASARCA Gemma P hy: Dean Delgado MD Service Da te: 06/02/18 Fam Phy: Solitario Dillard MD Interpretin g P hy: Kwame Trivedi MD Admi t Phy: Tatyana Ferrari D.OKennedy Orderi ng Phy: Tatyana Ferrari D.O. cc: CT abd pelvis wo con CLINICAL HISTORY: 67 years-old Male presenting with hematoma, right-sided pa in. TECHNIQUE: Multidetector CT of the abdomen and pelvis was performed without the use of intravenous contrast. IV contrast : None. One or more dose lowering techniqu es were used consistent with the principles of ALARA (as low as reasonably achievable), including automatic exposure control, mA or kV adjustment to individual patient size , and/or use of iterative reconstruction. COMPARISON: 05/21/2018. CT DOSE (mGy .cm): The estimated cumulative dose is 1739.07 mGy.cm. 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 Lung bases: Normal he art size. Coronary artery calcification. Mod erate right pleural effusion with extensive vo lume loss and consolidation of the right lowe r lobe. Overlying rib fractures with incre ased herniation of intra-abdominal fat into t he right pleural space consistent with a diaphragmatic defect (series 3 image 87) . The diaphragmatic defect measures 2.8 cm in diameter. Displacement of the ribs is increased from prior. Left lung and pleu ral space clear though there is evidence of underlying emphysema. Liver: Nodula r contour of the liver compatible with cirrhosis. Normal liver density. Biliary: No gross biliary ductal dilatat ion allowing for noncontrast technique. Gallbladder contains gallstones. Trace pericholecystic fat infiltration similar to prior. No pathologic distention of the gallbladder. Pancreas: Moderate parenchymal atrophy. Spleen: Normal . Adrenal glands: Multilobular macroscopi c fat-containing lesion in the left adrena l gland measuring 6.5 cm in diameter simil ar to prior exam and again consistent with myelolipoma. Right adrenal are normal. Kidneys and ureters: Normal noncontrast appearance. No nephrolithiasis. No hydronephrosis. Normal ureters. Branden dder: Decompressed with Killian catheter. P elvic organs: Normal noncontrast appearance. Bowel: Diverticulosis of the sigmoid and descending colon without wall thickening or pericolonic inflammatory change. The shoshana endix is normal. No bowel obstruction. Peritoneal cavity: Infiltration of the peripancreatic and periduodenal region increased from prior.Trace abdominal pel brandy ascites. No free intraperitoneal gas. Lymph nodes: No gross lymphadenopathy allowing for noncontrast technique. Vasculature: Atherosclerosis of the norm al caliber abdominal aorta. Abdominal wall: Significant body wall edema. Infiltratio n of the right anterolateral abdominal wallma y relate to the reported injury though the degree of diffuse body wall edema makes assessment for focal contusion limited. Right posterior lateral chest wall collection is most consistent with herniated right ple ural fluid. This is new from prior. Musculoskeletal: Significant displacemen t of right lower rib fractures with an increa sed degree of displacement in comparison to prior. Degenerative changes of the spine . Osteopenia. IMPRESSION: 1. Inter rosemary development of a fluid collection along the right posterolateral chest wall. This is not consistent with a hematoma by density. T his most likely indicates herniation and/or discontinuity of the right pleural space with herniated right pleural fluid. 2. Right traumatic diaphragmatic defect with herniation of intra-abdominal fat into t he right pleural space. 3. Increased displacement of the multiple acute right lateral rib fractures. 4. Moderate right pleural effusion with complete col lapse of the right lower lobe. 5. Cirrho sis with trace ascites. 6. Diverticulo sis. 7. Nonspecific peripancreatic and periduodenal infiltration, which could r elate to the presence ofascites/generalized ed cecilia. Correlate with lipase to exclude pancrea titis as an etiology of this finding. Electronically signed by: Kwame sal M.D. 06/03/2018 12:34 PM Dicta puneet: 06/03/18 1220 Transcribed: 1220 X-Ray Chest 1 View Portable (Pending) Laboratory: [facility] [address] [facility] 04-Jun-2018 7:06 X-Ray Chest 1 VW Portable (CXR1P) [facility], [place] [phone] XRay Report Patien t: BREEZY GUNN Admit Date: 9 MR#: [id number] Address1: [address] [facility] Acct ID:[id number] Address2: Date: 1950 [facility] Zip: [place] [address] Age: 67 Location: 1E Sex: M Room/Bed: [facility] Att Phy: Zi Jacobson, Diagnosis: PAIN ,PLEUR AL EFFUSION,ANASARCA Gemma P hy: Dean Delgado MD Service Da te: 06/04/18 Fam Phy: Solitario Dillard MD Interpretin g P hy: Monster James MD Ad [facility] Phy: Tatyana Ferrari DKennedyOKennedy Orderi Phy: Khloe Argueta MD cc: XR chest 1V portable CLINICAL HISTORY: Shortness of breath. COMPARISON STUDY: Chest CT May 15 019. Chest radiograph June 02, 2018. FINDINGS: Numerous displaced right-sided rib fractures are again noted. Fracture displacement has increased since radiogr aphs of June 02, 2018. A moderate to large r ight pleural effusion has increased. There is hazy right lung opacity. Right lung aeration has decreased since prior exam. There is no pneumothorax. There is no evidence for pulmonary edema. Right lower hemithorax opacity with elevation of the right hemidiaphragm has increased. IMPRESSION: 1. Increase in size o f a moderate to large right pleural effusion with increasing right basilar opacity and diminished right lung aeration since gemma or exam. No pneumothorax. 2. Multiple displaced right-sided rib fractures with interval increase in fracture displaceme nt. Electronically signed by: Monster James M.D. 06/04/2018 7:12 AM Dictated: 06/04/18 0706 Transcrib ed: 06/04/18 0706 X-Ray Chest 1 View Portable (Pending) Laboratory: [facility] 1800 [facility] 04-Jun-2018 11:33 X-Ray Chest 1 VW Portable (CXR1P) [place], [place] [phone] XRay Report Chandana t: BREEZY GUNN Admit Date: 9 MR#: [id number] Address1: [address] [facility] Acct ID:[id number] Address2: Date: 1950 [facility] Zip: [place] [address] Age: 67 Location: 1E Sex: M Room/Bed: [facility] Att Phy: Jaron Pritchett MD Diagnosis: PAIN,PLEURAL EFFUSION,ANASARCA Gemma Phy: Dean Delgado MD Service Date: 06/04/18 Fam Phy: Solitario Garcia MD Interpretin g Phy: Alek Roblero MD Admit Phy: Mehnaz Ferrari D.O. Ordering Phy: Raza Arevalo DO cc: XR chest 1V portable HISTORY: s/p right chest tube; verification of placem ent COMPARISON: Chest 06/04/2018. FINDINGS: Moderate right pleural effusio n is again noted. This has slightly decreased in size. There is a pigtail catheter within the expected location of the right lung base . No pneumothorax. Multiple displaced right-s ided rib fractures are again noted. The left lung remains clear. The heartremains enlarged . IMPRESSION: 1. Slight decrease in size in the moderate right pleural effusion s tatus post placement of a right basilar pleura l catheter. This is likely in good positio n, however, the exact location is difficult to determine with plain film technique. No pneumothorax. 2. Displaced right rib fractures are again noted. Electronically signed by: Alek grajeda M.D. 06/04/2018 11:36 AM Dicta puneet: 06/04/18 113 Transcribed: 1133 X-Ray Chest 1 View Portable (Pending) Laboratory: [facility] 05-Jun-2018 8:50 X-Ray Chest 1 VW Portable (CXR1P) [facility], [place] [phone] XRay Report Chandana t: BREEZY GUNN Admit Date: 9 MR#: [id number] Address1: [address] [facility] Acct ID:[id number] Address2: Date: 1950 [facility] Zip: [place] [address] Age: 67 Location: Sex: M Room/Bed: [facility] Att Phy: Jaron Pritchett MD Diagnosis: PAIN,PLEURAL EFFUSION,ANASARCA Gemma Phy: Dean Delgado MD Service Date: 06/05/18 Fam Phy: Solitario Garcia MD Interpretin g Phy: Samson Carlton MD Admit Phy: Tatyana Ferrari, D.O. Ordering Phy: Prakash Valenzuela MD cc: XR luis st 1V portable CLINICAL HISTORY: chest tu be follow up tube position COMPARISON STUDY: 06/04/2018 FINDINGS: Improve d right pleural effusion . Improved aerati on right base. Left lung remains gener ally clear. Moderate stable cardiomegaly. The re is no evidence of pneumothorax. Right basil ar drainage catheter is unchanged in locati on. IMPRESSION: 1. Improved aeration a s well as diminished volume of a right ple ural effusion. 2. Right basilar drainage catheter remains in good position. 3. No evidence for pneumothorax. The above report was generated using vo ice recognition software. It may contain grammatical, syntax or spelling errors. Electronically signed by: Samson Carlton M.D. 06/05/2018 8:51 AM Dictated: 06/05/18 0850 Transcrib ed: 06/05/18 0850 X-Ray Chest 1 View Portable (Pending) Laboratory: [facility] [address] [facility] 06-Jun-2018 9:05 X-Ray Chest 1 VW Portable (CXR1P) [facility], [place] [phone] XRay Report Chandana t: BREEZY GUNN Admit Date: 9 MR#: [id number] Address1: [address] [facility] Acct ID:[id number] Address2: Date: 1950 [facility] Zip: [place] [address] Age: 67 Location: 2N Sex: M Room/Bed: [facility] Att Phy: Jaron Pritchett MD Diagnosis: PAIN,PLEURAL EFFUSION,ANASARCA Gemma Phy: Dean Delgado MD Service Date: 06/06/18 Fam Phy: Solitario Garcia MD Interpretin g Phy: Darrell Forrest Admit Phy: Floresita Ferrari D.OKennedy Ordering Phy: Prakash Valenzuela MD cc: XR chest 1V portable HISTORY: 67 year s-old Male chest tube follow up follow-up stud y in a patient with right-sided chest tube COMPARISON: Chest radiograph 06/05/2018, CT abdomen and pelvis 06/03/2018 TECHNI QUE: Portable AP view of the chest FINDI NGS: Cardiac silhouette is enlarged, unchan ged. Calcification of the thoracic arch. Stab le positioning of the right-sided chest tub e. Unchanged moderate right pleural effusio n with right lung base opacities. The left lung is clear. No overt pulmonary edema. No pneumothorax. Right-sided rib fractures redemonstrated. Degenerative changes of the shoulders and spine. IMPRESSION: 1. Stable positioning of the right-sided ch est tube. 2. Unchanged moderate right pleu ral effusion with right lung base opacities. 3. No pneumothorax. 4. Cardiomegaly. The above report was generated using [employer] oice recognition software. It may contain grammatical, syntaxor spelling errors. Electronically signed by: Jag Forrest M.D. 06/06/2018 9:07 AM Dictated: 06/06/18904 Transcrib ed: 06/06/18904 CT chest wo con (Pending) Laboratory: [facility] Diagnostic Imagi ng [facility] [place] 06-Jun-2018 14:14 CT chest wo con [facility], [place] [phone] CT Scan R eport Patient: BREEZY GUNN Admit Date: 9 MR#: [id number] Address1: [address] [facility] Acct ID:[id number] Address2: D ate: 1950 [facility] Zip: [place] [address] Age: 67 Location: 2N Sex: M Room/Bed: N2-2 At t Phy: Jaron Pritchett MD Diagnosis: PAIN,PLEURAL EFFUSION,ANAS ARCA Gemma Phy: Dean Delgado MD Service Date: 06/06/18 Fam Phy: Solitario Garcia MD Interpretin g Phy: Darrell Ga her Admit Phy: Elin Ferrari D.O. Ordering Phy: Prakash Valenzuela MD cc: CT chest wo con CT DOSE: 987.14 mGy.cm CLINICAL HISTORY: 67 years-old Male with follow up hemothorax. Follow-up study i n a patient with recent hemothorax TECHNIQUE: Multiaxial CT images of the c hest were performed without contrast. A dose lowering technique was utilized adhering to the principles of ALARA. COMPARISON : Chest radiograph of same day, CT abdomen and pelvis 06/03/2018, CTA chest 05/15/2018 FINDINGS: Normal appearance of the thyroid. Calcified subcarinal and right hilar lymph nodes compatible with prior granulomatous disease. Cardiomegaly with coronary arterial calcifications. No tho racic aortic aneurysm. Moderate emphysema . The left lung is generally clear. Linear 4 m m solid nodule of the basal left lower lob e is unchanged and likely benign. Hydropneumothorax on the right with trac e amount of pleural air. Moderate amount o f pleural fluid of the right hemithorax mcdonnell s decreased in size from comparison and th e fluid is predominantly simple. Right bas ilar consolidation suggest correlation atelec tasis with pulmonary contusion. There is a leida inage catheter noted within a fluid collection about the posterior lateral right chest wall which demonstrates fluid and air and has decreased in size from comparison study now measuring approximately 8.6 x 2.0 cm in AP and transverse dimension, previously 16. 5 x 3.5 cm. Moderate subcutaneous edema abou t the chest and abdominal wall. Layering hemor rhage is noted about the right lateral abdomin al wall with deep tissue air, 11.0 x 2.2 cm . Unchanged 6.3 cm lesion of the left adr enal limb with macroscopic fat attenuation suggestive of a adrenal myolipoma. Cirrh osis. Cholelithiasis. Diaphragms defect with herniation of mesenteric fat into the ri ght pleural cavity and lateral right hemitho rax redemonstrated. Multiple displaced lower right rib fractures redemonstrated. Roque es appearance of the bones. Degenerative ch anges of the shoulders and spine. IMPRESS ION: 1. Multiple displaced acute right-s ided rib fractures redemonstrated. 2. Diaphragmatic defect with herniation of peritoneal fat into the right hemithorax and lateral right chest wall again noted. 3. Right-sided hydropneumothorax with decre ased amount of pleural fluid. The pneumothor ax is very small in size. 4. Decreased fluid collection about the posterior lateral r ight hemithorax with associated drainagecathe ter. 5. Improved aeration of the right lower lobe with persistent bibasilar opacities suggestive of atelectasis with pulmonary contusion. 6. Cirrhosis. 7. Emphysem a. Electronically signed by: Jag Forrest M.D. 06/06/2018 2:27 PM Dictated: 06/06/18 1414 Transcrib ed: 06/06/18 1414 X-Ray Chest 1 View Portable (Pending) Laboratory: [facility] 06-Jun-2018 17:12 X-Ray Chest 1 VW Portable (CXR1P) [place], [place] [phone] XRay Report Patien t: BREEZY GUNN Admit Date: 9 MR#: [id number] Address1: [address] [place] [address] Acct ID:[id number] Address2: Date: 1950 [facility] Zip: [place] [address] Age: 67 Location: 2N Sex: M Room/Bed: [facility] Att Phy: Jaron Pritchett MD Diagnosis: PAIN,PLEURAL EFFUSION,ANASARCA Gemma Phy: Dean Delgado MD Service Date: 06/06/18 Fam Phy: Solitario Garcia MD Interpretin g Phy: Darrell Forrest Admit Phy: Floresita Ferrari, D.O. Ordering Phy: Prakash Valenzuela MD cc: XR chest 1V portable HISTORY: 67 year s-old Male chest tube removal status post right-sided chest tube removal COMPARISON: Chest CT of same day TECHNIQUE: Portable AP view the chest FINDINGS: Cardiac mediastinal and hil ar silhouettes are unchanged. The left lung is clear. Tiny right apical pneumothorax redemonstrated. Moderate amount of pleur al fluid at the right lung base. Status pos t removal of the previously noted drainage catheter. Unchanged right midlung and ri ght lung base opacities. Multiple displaced acute right-sided rib fractures redemonstrated . Calcification the thoracic aortic arch. IMPRESSION: 1. Status post removal of the right-sided chest drainage catheter. 2 . Unchanged appearance of the right-sided hydropneumothorax with right midlung and right lung baseopacities. 3. Multiple acute displaced right-sided rib fractures redemonstrated. The above report wa s generated using voice recognition [employer]. It may contain grammatical, syntaxor spe lling errors. Electronically signed by: Jag Forrest M.D. 06/06/2018 5:14 P M Dictated: 06/06/181711 Transcribed: 06/06/181711 Vital Signs 27-May-2018 9:24 Systolic 100 mm[Hg] Comments: Location: RUE; Position: Sitting Diastolic 60 mm[Hg] Comments: Location: RUE; Position: Sitting Respiration 16 /min Comments: Quality: N ormal Temperature 97.6 f Comments: Method: Or al Heart Rate 68 /min Comments: Location: R Radial; Quality: Normal BMI Calculated 46.59 kg/m2 Weight 306.4 lb O2 Saturation 94 % Comments: Source: RA BSA Calculated 2.45 m2 11-May-2018 9:33 Systolic 112 mm[Hg] Comments: Location: RUE; Position: Sitting Diastolic 80 mm[Hg] Comments: Location: RUE; Position: Sitting Respiration 16 /min Comments: Quality: N ormal Temperature 97.9 f Comments: Method: Or al Heart Rate 77 /min BMI Calculated 44.72 kg/m2 Weight 294.1 lb O2 Saturation 96 % Comments: Source: RA BSA Calculated 2.41 m2 Encounters Appointment; Yara Pérez PA-C 03-Jun-2018 9:30 Encounter Diagnosis: Problem not documented Appointment; Shy Simmons CRNP 27-May-2018 9:20 Encounter Diagnosis: Problem not documented Appointment; Darryl Lee CRNP 11-May-2018 9:40 Encounter Diagnosis: Problem not documented Appointment; Cassidy Graham M.D. 07-Apr-2018 9:10 Encounter Diagnosis: Problem not documented Appointment; Shy Simmons CRNP 12-Jan-2018 13:00 Encounter Diagnosis: Problem not documented Appointment; Marcial Wilcox II, DO 04-Nov-2017 10:30 Encounter Diagnosis: Problem not documented Appointment; Marcial Wilcox II, DO 02-Sep-2017 11:00 Encounter Diagnosis: Problem not documented Appointment; Marcial Wilcox II, DO 29-Jul-2017 9:15 Encounter Diagnosis: Problem not documented Appointment; Dean Delgado M.D. 03-Jul-2017 11:20 Encounter Diagnosis: Problem not documented Appointment; Marcial Wilcox II, DO 17-Apr-2017 10:15 Encounter Diagnosis: Problem not documented Appointment; Solitario Garcia M.D. 10-Apr-2017 10:30 Encounter Diagnosis: Problem not documented Appointment; [facility] 10-Apr-2017 10:00 Encounter Diagnosis: Problem not documented Appointment; Cassidy Graham M.D. 08-Apr-2017 9:30 Encounter Diagnosis: Problem not documented Appointment; Echo/Stress, Echo/Stress 30-Mar-2017 11:45 Encounter Diagnosis: Problem not documented Appointment; Jaron Ervin M.D. 24-Dec-2016 11:00 Encounter Diagnosis: Problem not documented Appointment; Jaron Ervin M.D. 19-Dec-2016 13:30 Encounter Diagnosis: Problem not documented Appointment; [facility] 03-Dec-2016 11: 40 Encounter Diagnosis: Problem not documented Appointment; Dean Delgado M.D. 01-Dec-2016 11:20 Encounter Diagnosis: Problem not documented Appointment; Solitario Garcia M.D. 07-Oct-2016 12:00 Encounter Diagnosis: Problem not documented Appointment; [facility], [facility] 07-Oct-2016 11:00 Encounter Diagnosis: Problem not documented Appointment; [place] [address], Nursing Station 06-Oct-2016 11:00 Encounter Diagnosis: Problem not documented Appointment; Magalie Lemos CRNP 10-Sep-2016 11:10 Encounter Diagnosis: Problem not documented Appointment; Carol Balderas M.D. 03-Sep-2016 8:45 Encounter Diagnosis: Problem not documented Appointment; Yu Barksdale CRNP 21-Aug-2016 11:00 Encounter Diagnosis: Problem not documented Appointment; Solitario Garcia M.D. 04-Aug-2016 12:00 Encounter Diagnosis: Problem not documented Appointment; Magalie Lemos CRNP 23-Jul-2016 14:20 Encounter Diagnosis: Problem not documented Appointment; Darryl Lee CRNP 18-Jul-2016 10:20 Encounter Diagnosis: Problem not documented Appointment; Dean Delgado M.D. 03-Jul-2016 10:20 Encounter Diagnosis: Problem not documented Appointment; Solitario Garcia M.D. 24-Jun-2016 10:00 Encounter Diagnosis: Problem not documented Appointment; Dean Delgado M.D. 20-Jun-2016 14:00 Encounter Diagnosis: Problem not documented Appointment; Dean Delgado M.D. 10-Jun-2016 8:00 Encounter Diagnosis: Problem not documented Appointment; Dean Delgado M.D. 08-Jul-2018 10:00 Encounter Diagnosis: Problem not documented
[2018-06-07] MEDS: ALBUTEROL 0.5% NEB SOLN 2.5 MG/0.5 ML VIAL NEB PRN (22:01)
--- NOTE | 2018-06-07 22:57 | XRay Report ---
XR chest 1V portable HISTORY: Short of breath. COMPARISON: Chest 06/06/2018. FINDINGS: The heart remains mildly enlarged. Multiple displaced right rib fractures are again noted. The right pneumothorax appears to have resolved in the interval. Small right pleural fusion persist. The left lung remains clear. No new focal lung consolidations. No evidence for pulmonary edema. IMPRESSION: 1. Interval resolution of the right pneumothorax. 2. Multiple right-sided rib fractures and a small right pleural effusion persists. Electronically signed by: Alek Roblero M.D. 06/07/2018 10:55 PM
[2018-06-08] MEDS: ALBUMIN 25% 50 ML IV SCH (03:38)
[2018-06-08] MEDS: OXYCODONE HCL IR 5 MG TAB (IMMEDIATE RELEASE) PO PRN (06:39)
--- NOTE | 2018-06-08 06:56 | XRay Report ---
XR chest 1V portable HISTORY: 67 years-old Male right pleural effusion follow-up study in a patient with right-sided pleu ral effusion COMPARISON: Chest radiograph 06/07/2018 TECHNIQUE: Portable AP view of the chest FINDINGS: Right-sided pleural effusion is unchanged. No pneumothorax identified. Persistent right lung base opa cities. Multiple acute displaced right-sided rib fractures. Left lung is clear. The cardiomediastinal and hilar silhouettes are within normal limits. IMPRESSION: 1. Unchanged right pleural effusion with right lung base opacities. 2. Multiple acute right-sided displaced rib fractures redemonstrated. 3. No pneumothorax identified. The above report was generated using voice recognition software. It may contain grammatical, syntax o r spelling errors. Electronically signed by: Jag Forrest M.D. 06/08/2018 6:55 AM
[2018-06-08] MEDS: ALBUT/IPRATROP 3MG/0.5MG NEB 3 ML VIAL NEB SCH ×4 (07:11→19:03)
[2018-06-08 07:42] LABS: Basophils # (auto) 0.01 K/uL (0-0.2); Basophils % (auto) 0.2 %; Eosinophils % (auto) 3.9 %; Hematocrit (blood only) 23.6 % (42-52); Hemoglobin 8.1 g/dL (14.0-18.0); Immature Granulocytes # (auto) 0.02 K/uL (0.00-0.02); Immature Granulocytes % (auto) 0.4 %; Lymphocytes # (auto) 0.79 K/uL (1.2-3.4); Lymphocytes % (auto) 15.4 %; Mean Corpuscular Hgb Conc 34.3 g/dL (32-36); Mean Corpuscular Volume 97.5 fL (80-100); Mean Platelet Volume 8.7 fL (7.4-10.4); Monocytes # (auto) 0.75 K/uL (0.11-0.59); Monocytes % (auto) 14.6 %; Neutrophils # (auto) 3.37 K/uL (1.4-6.5); Neutrophils % (auto) 65.5 %; Platelet Count 126 K/uL (130-400); RDW Coefficient of Variation 18.3 % (11.5-14.5); RDW Standard Deviation 64.8 fL (36.4-46.3); Red Blood Count 2.42 M/uL (4.7-6.1); White Blood Count 5.14 K/uL (4.8-10.8)
[2018-06-08] MEDS: POLYETHYLENE (MIRALAX) 17 GM PACK PO SCH ×3 (07:54→20:41)
[2018-06-08] MEDS: LIDOCAINE 5% 1 PATCH TD SCH (07:54)
[2018-06-08] MEDS: METOPROLOL SUCC 50MG EXT REL TAB PO SCH (07:55)
[2018-06-08] MEDS: SPIRONOLACTONE 25 MG TAB PO SCH ×2 (07:55→20:40)
[2018-06-08] MEDS: FOLIC ACID 1 MG TAB PO SCH (07:55)
[2018-06-08] MEDS: ATENOLOL 50 MG TABLET PO SCH ×2 (07:55→20:40)
[2018-06-08] MEDS: BUDESONIDE/FORMOTEROL FUMARATE 160/4.5 60 PUFFS/INHALER INH SCH ×2 (07:55→20:39)
[2018-06-08] MEDS: PANTOprazole 40 MG TAB PO SCH (07:55)
[2018-06-08] MEDS: OXYCODONE HCL 10 MG TABCR (OXYCONTIN) PO SCH ×2 (07:58→20:39)
[2018-06-08 08:01] LABS: BUN Creatinine Ratio 16.7 (10-20); Calcium 8.2 mg/dl (8.5-10.1); Creatinine Clr Calc Pharmacy 136.4 ml/min; Est GFR (African American) 113.7; Est GFR (Non-African American) 98.1; Potassium 4.1 mmol/L (3.5-5.1)
--- NOTE | 2018-06-08 08:20 | Family Medicine Progress Note ---
Date of Service June 08, 2018 Assessment & Plan (1) Pleural effusion, right: Patient with recurrent right sided pleural effusion, s/p thoracentesis on 05/22 with 350mL bloody fluid removed. Possibly traumatic in setting of multiple rib fractures. Patient with significant pain, tachypnea, requiring minimal O2 to maintain saturations. Patient also with significant anasarca h/o cirrhosis and CHF, recurrence of hemothorax vs other fluid accumulation. Overnight of 06/03-06/04 patient had increasing oxygen requirements and tachycardia unresponsive to Lopressor. Chest x-ray was obtained showing a worsening pleural effusion Dr. Velazco was contacted and recommended transfer to the ICU. 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 This likely explains the diffuse ecchymosis on his right side. This injury likely happened during prior presentation and fluid accumulation tamponaded not at the vessel. Upon thoracocentesis during this hospital admission the tamponade was removed and the vessel allowed to bleed. -Supplemental O2 a needed to maintain sats 92%, currently 2L -Continuous pulse oximetry -Completed a course of CTX for UTI -Chest tube DC'd by pulmonary -Aggressive Lasix to remove fluid 60 mg every 8 hours -CT surgery consulted -Desatted to 92% overnight requiring 2 L of oxygen to maintain saturation -Likely component of anxiety, pulmonary does not feel this is related toPleural effusion. -Pulmonary toilet with incentive spirometry, out of bed as much as able, continue nebs -If SOB does not improve can consider a short course of steroids -Chest x-ray demonstrates unchanged pleural effusion this morning appreciate pulmonary and CT injury recommendations -Currently no further indication for chest tube -Given his history of cirrhosis would be careful with long-term drainage, if it is a hepatic hydrothorax will only lead to protein wasting (2) Multiple fractures of ribs: Patient with fractures of ribs 7-10 mid-axillary line, diagnosed by CT during last hospital admission. Possibly secondary to severe coughing in setting of recent PNA/bronchitis. Significant pain. unclear etiology see subjective above -Consult pain management appreciate recommendations -resume Oxycontin 10mg po BID -resume Oxycodone 5mg po q 6 hours -morphine to 2 mg IV every 2 hours as needed -Lidoderm patch -Bowel regimen MiraLAX scheduled 3 times daily, Colace prn -Incentive spirometry q2h while awake -Conventionally rib fractures are no longer repaired, furthermore with this patient's numerous comorbidities he is a poor surgical candidate. -The patient will need need alf on discharge to ensure he does not reinjure his intercostal vasculature (3) Cirrhosis: Patient with history of liver cirrhosis thought to be secondary to EtOH abuse. Child Class B, MELD score =11. MRI performed on 01/11/18 with two lesions suspicious for HCC. AFP level on 04/29/18 was 22.8 (relatively stable, was 27.9 on 07/23/17 and 18.9 on 01/18/18). Patient reports that he follows with Dr. Petty for this and has been doing well. Patient with anasarca today. Patient has been on multiple courses of Prednisone over the past month which is most likely contributing to fluid retention. Is not encephalopathic, does not appear to have significant ascites, liver labs are essentially unchanged from prior. Do not suspect decompensated cirrhosis. Weight is 120kg, was 136kg on discharge but patient reports appx 15 pound gain over the last 2 weeks. Mildly elevated K at 5.2. -GI signed off -Patient more edematous today, not having significant urine output. Creatinine is holding will increase diuresis -Lasix 60 mg IV every 6 hours, -Spironolactone 50 mg p.o. twice daily -Low Na/CC diet -Daily weights 132.7->131.2 -Repeat LFTs in AM -Daily BMP (4) COPD (chronic obstructive pulmonary disease): Patient with COPD, +diffuse wheezing noted on exam. Satting well on room air -Supplemental O2 PRN to maintain sats 92% -DuoNebs q 6 hours -Albuterol q 2 hours PRN -Will not continue steroids at this time (5) Hypertension: Blood pressure well controlled at present no longer hypotensive -Continue Atenolol -Started on metoprolol succinate 50 mg p.o. daily -Diuretics as above -Continue to monitor (6) Rapid atrial fibrillation: Patient with history of AF . Intermittent tachycardia currently pulse is 102. Tachycardia likely secondary to pain and poor oxygenation secondary to pleural effusion -Treatment of pain as above, supplemental O2 -Continue Atenolol BID -Metoprolol succinate 50 mg p.o. daily -Telemetry monitoring (7) Hyponatremia: Iy=[id number]. Near baseline. Patient is on salt tablets at home. -DC salt tablets -Diuresis as above -Fluid restriction 2L -Daily BMP -Completed albumin infusion -If sodium continues downtrending can consider hypertonic saline and/or resumption of salt tabs -Liver function studies normal (8) Abdominal wall contusion: H/H stable. Patient with significant abdominal pain -Pain control as above PT/OT recommend acute rehab F/E/N -low-salt diet Ppx -Lovenox Code -Full per discussion with patient Dispo -telemetry moving towards discharge Supervising Physician Co-Signing Physician Notes I personally examined the patient and verified all james points of history and exam, discussed case, and agree with decision making with Dr Ferrari. He did go back on 2 L of oxygen overnight, but has no significant shortness of breath now. His pain comes and goes whenever it does come is quite intense. Vitals noted, in general he is awake and alert pleasant no distress. HEENT normocephalic atraumatic next members are moist. Breathing is unlabored no accessory muscle use good effort. Skin shows no rashes no pallor or icterus. Right-sided effusion/pneumothoraxongoing diuresis, serial exams, serial vitals, vigilance, periodic imaging. Overall continue current care. Anemiacontinue to follow Continue to increase mobility, PT and OT eval and treat, work towards rehab placement once he is stable enough Subjective She is lying in bed this morning in no acute distress. Per nursing overnight patient had desaturation to 92% was placed on 2 L nasal cannula and maintain adequate saturation. Otherwise patient is continued to improve from a symptomatic standpoint although slightly more edematous today. Patient reports tolerating his diet, voiding, sleeping well, however has not had a bowel movement. Patient states he does not feel constipated nor the need to have a bowel movement. Patient's chest tube site is not putting out significant fluid anymore. All questions answered no acute concerns Patient denies fevers chills nausea vomiting diarrhea muscle aches or pain chest pain chest pressure shortness of breath or other signs and symptoms of acute infectious process Physical Exam Physical Exam: General: Obese male in no acute distress Eyes: EOMI/PERRLA Neck: Trachea midline, normal to visual inspection, negative JVD Chest: Clear to auscultation bilaterally wheezes present bilaterally, chest tube is been removed, draining serosanguineous fluid from insertion site Cardiac: Tachycardic, irregularly irregular, normal S1 and S2, did not appreciate murmurs rubs or gallops 3+ pitting edema to the mid thigh GI: Abdomen is significantly distended tender to palpation over the lower abdomen, no appreciable masses, ecchymosis resolving in the periumbilical area extending to his right flank and up the right costal's improving MSK: Moves all extremities Skin: Warm dry and intact, significant ecchymosis throughout his body. The worst patch is described above Neuro: Calm cooperative AAO x4 Results & Data Vital Signs (Past 12 Hours) Vital Signs Temp Pulse Pulse Resp BP BP Pulse Ox 06/08/18 07:43 96 06/08/18 07:12 36.4 C L 94 H 22 117/79 98 06/08/18 06:59 87 06/08/18 04:00 36.5 C 57 L 16 113/72 92 06/08/18 00:00 103 H 06/07/18 23:26 36.7 C 106 H 18 122/78 97 06/07/18 23:21 36.5 C 99 H 18 119/72 97 06/07/18 22:39 36.4 C L 109 H 20 112/75 98 06/07/18 22:05 36.6 C 97 H 24 135/90 100 06/07/18 22:01 84 20 95 Laboratory Results 06/08/18 06/08/18 06/04/18 Range/Units 07:32 07:32 20:01 WBC 5.14 (4.8-10.8) K/uL RBC 2.42 L (4.7-6.1) M/uL Hgb 8.1 L (14.0-18.0) g/dL Hct 23.6 L (42-52) % MCV 97.5 (80-100) fL MCH 33.5 (25-34) pg MCHC 34.3 (32-36) g/dL RDW Std Deviation 64.8 H (36.4-46.3) fL RDW Coeff of Zack 18.3 H (11.5-14.5) % Plt Count 126 L (130-400) K/uL MPV 8.7 (7.4-10.4) fL Immature Gran % (Auto) 0.4 % Neut % (Auto) 65.5 % Lymph % (Auto) 15.4 % [place] % (Auto) 14.6 % Eos % (Auto) 3.9 % Baso % (Auto) 0.2 % Immature Gran # (Auto) 0.02 (0.00-0.02) K/uL Neut # (Auto) 3.37 (1.4-6.5) K/uL Lymph # (Auto) 0.79 L (1.2-3.4) K/uL [place] # (Auto) 0.75 H (0.11-0.59) K/uL Eos # (Auto) 0.20 (0-0.5) K/uL Baso # (Auto) 0.01 (0-0.2) K/uL Sodium 130 L (136-145) mmol/L Potassium 4.1 (3.5-5.1) mmol/L Chloride 92 L (98-107) mmol/L Carbon Dioxide 30 (21-32) mmol/L Anion Gap 7.0 (3-11) BUN 11 (7-18) mg/dl Creatinine 0.68 (0.6-1.4) mg/dl Est Cr Clr Drug Dosing 136.4 ml/min Est GFR ( Amer) 113.7 Est GFR (Non-Af Amer) 98.1 BUN/Creatinine Ratio 16.7 (10-20) Glucose 106 H (70-99) mg/dl Calcium 8.2 L (8.5-10.1) mg/dl Crossmatch See Detail Medications Administered Current Inpatient Medications Acetaminophen (Tylenol) 650 mg PO Q6H PRN PRN Reason: Pain or Fever Stop: 07/02/18 15:53 Albuterol (Duoneb) 3 ml NEB QIDR ALYSAI Stop: 07/02/18 15:59 Last Admin: 06/08/18 07:11 Dose: 3 ml Documented by: Albuterol (Ventolin 0.5% 2.5mg/0.5ml) 2.5 mg NEB Q2H PRN PRN Reason: SOB/Wheeze Stop: 07/02/18 15:53 Last Admin: 06/07/18 22:01 Dose: 2.5 mg Documented by: Atenolol (Tenormin) 100 mg PO BID [facility] Stop: 07/02/18 20:59 Last Admin: 06/08/18 07:55 Dose: 100 mg Documented by: Benzonatate (Tessalon Perle) 100 mg PO TID PRN PRN Reason: cough Stop: 07/02/18 16:29 Budesonide/Formoterol Fumarate (Symbicort 160mcg/4.5mcg) 2 puffs INH BID [facility] Stop: 07/05/18 08:59 Last Admin: 06/08/18 07:55 Dose: 2 puffs Documented by: Digoxin (Lanoxin) 0.125 mg PO DAILY@1600 [facility] Stop: 07/05/18 15:59 Last Admin: 06/07/18 16:27 Dose: 0.125 mg Documented by: Docusate Sodium (Colace) 100 mg PO BID PRN PRN Reason: Constipation Stop: 07/02/18 15:53 Folic Acid (Folvite) 7 mg PO QAM [facility] Stop: 07/03/18 08:59 Last Admin: 06/08/18 07:55 Dose: 7 mg Documented by: Sodium Chloride (Nss) 250 mls @ 15 mls/hr IV .[id number] PRN PRN Reason: For Transfusion Stop: 07/06/18 15:28 Lidocaine (Lidoderm 5%) [facility] [place] Stop: 07/02/18 16:29 Last Admin: 06/08/18 07:54 Dose: Not Given Documented by: Metoprolol Succinate (Toprol Xl) 50 mg PO QAM [facility] Stop: 07/05/18 08:59 Last Admin: 06/08/18 07:55 Dose: 50 mg Documented by: Metoprolol Tartrate (Lopressor) 5 mg IV Q4 PRN PRN Reason: tachycardia Stop: 07/02/18 15:53 Last Admin: 06/03/18 23:31 Dose: 5 mg Documented by: Miscellaneous (Remove Lidoderm Patch) 1 ea N/A DAILY@2100 [facility] Stop: 07/02/18 20:59 Last Admin: 06/07/18 21:06 Dose: Not Given Documented by: Morphine Sulfate (Morphine Sulfate) 2 mg IV Q4H PRN PRN Reason: Pain Stop: 06/19/18 15:18 Naloxone HCl (Narcan) 0.1 mg IV Q5M PRN; Protocol PRN Reason: Oversedation/Resp Depression Stop: 06/18/18 08:36 Ondansetron HCl (Zofran) 4 mg IV Q6H PRN PRN Reason: Nausea Stop: 07/02/18 15:53 Oxycodone HCl (Roxicodone Immediate Rel) 5 mg PO Q6H PRN PRN Reason: Pain Stop: 06/19/18 15:16 Last Admin: 06/08/18 06:39 Dose: 5 mg Documented by: Oxycodone HCl (Oxycontin) 10 mg PO BID [facility] Stop: 06/19/18 20:59 Last Admin: 06/08/18 07:58 Dose: 10 mg Documented by: Pantoprazole Sodium (Protonix) 40 mg PO QAM [facility] Stop: 07/03/18 08:59 Last Admin: 06/08/18 07:55 Dose: 40 mg Documented by: Polyethylene Glycol (Miralax Powder Packet) 17 gm PO TID [facility] Stop: 07/07/18 13:59 Last Admin: 06/08/18 07:54 Dose: Not Given Documented by: Spironolactone (Aldactone) 50 mg PO BID [facility] Stop: 07/02/18 20:59 Last Admin: 06/08/18 07:55 Dose: 50 mg Documented by: Resident Activity Tracking Resident Involvement: Resident Care Provided Care Provided: Adult Hospital Medicine (1) Multiple fractures of ribs Encounter type: initial encounter Fracture type: closed Laterality: right Qualified Code(s): S22.41XA - Multiple fractures of ribs, right side, initial encounter for closed fracture (2) Abdominal wall contusion Encounter type: initial encounter Qualified Code(s): S30.1XXA - Contusion of abdominal wall, initial encounter (3) Cirrhosis Ascites presence: with ascites Hepatic cirrhosis type: alcoholic cirrhosis Qualified Code(s): K70.31 - Alcoholic cirrhosis of liver with ascites (4) COPD (chronic obstructive pulmonary disease) COPD type: unspecified COPD Qualified Code(s): J44.9 - Chronic obstructive pulmonary disease, unspecified (5) Hypertension Hypertension type: essential hypertension Qualified Code(s): I10 - Essential (primary) hypertension
--- NOTE | 2018-06-08 12:58 | Pulmonology Progress Note ---
Date of Service June 08, 2018 Assessment & Plan (1) Pleural effusion, right: pleural effusion with hemopneumothorax. chest tube removed 06/06. still with fluid leaking from site though less than yesterday CXR this morning about the same. if reaccumulating may need further intervention doubt shortness of breath related to pleural effusion. needs continued pulmonary toilet with incentive spirometry. OOB as much as able. continue nebs COPD- does have some wheezing continue albuterol ipratropium. if remains short of breath can consider steroids continue diuresis likely has anxiety component to shortness of breath cirrhosis - would be careful of care home drainage if has hepatic hydrothorax to avoid protein wasting Subjective more short of breath earlier this morning for about an hour. now breathing similar to yesterday Physical Exam Physical Exam: Constitutional: Comfortable NAD HEENT: normocephalic atraumatic. CV: RRR nl s1,s2 no murmurs rubs or gallops Lungs: clear to auscultation bilaterally. no accessory muscle use. slight serosangious drainage at site of chest tube Abd: soft nontender nondistended. normal bowel sounds Ext: no edema. no cyanosis, no clubbing Skin: warm dry Neuro: alert and oriented. moving all extremities Psych: anxious Results & Data Vital Signs (Past 12 Hours) Vital Signs Temp Pulse Pulse Resp BP Pulse Ox 06/08/18 12:30 36.8 C 106 H 20 122/69 98 06/08/18 10:57 81 18 97 06/08/18 07:43 96 06/08/18 07:12 36.4 C L 94 H 22 117/79 98 06/08/18 06:59 87 06/08/18 04:00 36.5 C 57 L 16 113/72 92 Laboratory Results Laboratory Results - last 24 hr 06/04/18 06/08/18 06/08/18 20:01 07:32 07:32 WBC 5.14 RBC 2.42 L Hgb 8.1 L Hct 23.6 L MCV 97.5 MCH 33.5 MCHC 34.3 RDW Std Deviation 64.8 H RDW Coeff of Zack 18.3 H Plt Count 126 L MPV 8.7 Immature Gran % (Auto) 0.4 Neut % (Auto) 65.5 Lymph % (Auto) 15.4 [place] % (Auto) 14.6 Eos % (Auto) 3.9 Baso % (Auto) 0.2 Immature Gran # (Auto) 0.02 Neut # (Auto) 3.37 Lymph # (Auto) 0.79 L [place] # (Auto) 0.75 H Eos # (Auto) 0.20 Baso # (Auto) 0.01 Sodium 130 L Potassium 4.1 Chloride 92 L Carbon Dioxide 30 Anion Gap 7.0 BUN 11 Creatinine 0.68 Est Cr Clr Drug Dosing 136.4 Est GFR ( Amer) 113.7 Est GFR (Non-Af Amer) 98.1 BUN/Creatinine Ratio 16.7 Glucose 106 H Calcium 8.2 L Crossmatch See Detail
--- NOTE | 2018-06-08 16:14 | Progress Note ---
DATE: 06/08/2018 Mr. Zarco was seen today. He is on room air with 96% saturations. I think overall, his x-ray looks pretty good, but I am a bit concerned about the right pleural effusion; I think there may be a bit more fluid there. At any rate he remains relatively stable. I am concerned about his hemoglobin at 8.1 and the drainage from his right chest from his hepatic hydrothorax, but I think this should stop. At this point I do not see a need for any intervention in his chest.
[2018-06-08] MEDS: DIGOXIN 0.125 MG TAB PO SCH (16:36)
[2018-06-08] MEDS: FUROSEMIDE 60 MG in SYRINGE 0 ML IV SCH (16:38)
[2018-06-09] MEDS: OXYCODONE HCL IR 5 MG TAB (IMMEDIATE RELEASE) PO PRN ×2 (03:36→18:13)
[2018-06-09] MEDS: ALBUT/IPRATROP 3MG/0.5MG NEB 3 ML VIAL NEB SCH ×5 (04:27→18:52)
[2018-06-09 06:39] LABS: Basophils # (auto) 0.02 K/uL (0-0.2); Basophils % (auto) 0.4 %; Eosinophils # (auto) 0.26 K/uL (0-0.5); Eosinophils % (auto) 4.9 %; Hemoglobin 8.4 g/dL (14.0-18.0); Immature Granulocytes # (auto) 0.01 K/uL (0.00-0.02); Immature Granulocytes % (auto) 0.2 %; Lymphocytes # (auto) 0.74 K/uL (1.2-3.4); Lymphocytes % (auto) 14.1 %; Mean Corpuscular Hgb Conc 33.6 g/dL (32-36); Mean Platelet Volume 9.4 fL (7.4-10.4); Monocytes # (auto) 0.75 K/uL (0.11-0.59); Monocytes % (auto) 14.3 %; Neutrophils # (auto) 3.48 K/uL (1.4-6.5); Neutrophils % (auto) 66.1 %; Platelet Count 135 K/uL (130-400); RDW Coefficient of Variation 18.3 % (11.5-14.5); RDW Standard Deviation 65.1 fL (36.4-46.3); Red Blood Count 2.55 M/uL (4.7-6.1); White Blood Count 5.26 K/uL (4.8-10.8)
[2018-06-09 07:21] LABS: Albumin Level 2.9 gm/dl (3.4-5.0); BUN Creatinine Ratio 16.6 (10-20); Calcium 8.4 mg/dl (8.5-10.1); Creatinine Clr Calc Pharmacy 127.4 ml/min; Est GFR (African American) 111.1; Est GFR (Non-African American) 95.9
[2018-06-09 07:23] LABS: Albumin Globulin Ratio 1.1 (0.9-2); Bilirubin,Total 2.5 mg/dl (0.2-1); Globulin 2.7 gm/dl (2.5-4.0); Total Protein 5.6 gm/dl (6.4-8.2)
[2018-06-09] MEDS: OXYCODONE HCL 10 MG TABCR (OXYCONTIN) PO SCH ×2 (09:17→20:15)
[2018-06-09] MEDS: FUROSEMIDE 60 MG in SYRINGE 0 ML IV SCH (09:18)
[2018-06-09] MEDS: FOLIC ACID 1 MG TAB PO SCH (09:19)
[2018-06-09] MEDS: SPIRONOLACTONE 25 MG TAB PO SCH ×2 (09:19→20:15)
[2018-06-09] MEDS: LIDOCAINE 5% 1 PATCH TD SCH (09:20)
[2018-06-09] MEDS: POLYETHYLENE (MIRALAX) 17 GM PACK PO SCH ×3 (09:22→20:15)
[2018-06-09] MEDS: PANTOprazole 40 MG TAB PO SCH (09:22)
[2018-06-09] MEDS: ATENOLOL 50 MG TABLET PO SCH ×2 (09:23→20:15)
[2018-06-09] MEDS: BUDESONIDE/FORMOTEROL FUMARATE 160/4.5 60 PUFFS/INHALER INH SCH ×2 (09:23→20:16)
[2018-06-09] MEDS: METOPROLOL SUCC 50MG EXT REL TAB PO SCH (09:24)
--- NOTE | 2018-06-09 09:38 | Family Medicine Progress Note ---
Date of Service June 09, 2018 Assessment & Plan (1) Pleural effusion, right: Patient with recurrent right sided pleural effusion, s/p thoracentesis on 05/22 with 350mL bloody fluid removed. Possibly traumatic in setting of multiple rib fractures. Patient with significant pain, tachypnea, requiring minimal O2 to maintain saturations. Patient also with significant anasarca h/o cirrhosis and CHF, recurrence of hemothorax vs other fluid accumulation. Overnight of 06/03-06/04 patient had increasing oxygen requirements and tachycardia unresponsive to Lopressor. Chest x-ray was obtained showing a worsening pleural effusion Dr. Velazco was contacted and recommended transfer to the ICU. 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 This likely explains the diffuse ecchymosis on his right side. This injury likely happened during prior presentation and fluid accumulation tamponaded not at the vessel. Upon thoracocentesis during this hospital admission the tamponade was removed and the vessel allowed to bleed. A chest tube was placed and maintained for 2 days, subsequently removed. Patient has been doing well since some drainage and drainage from the chest tube site, now has resolved -Supplemental O2 a needed to maintain sats 92%, currently 2L -Continuous pulse oximetry -Completed a course of CTX for UTI -Chest tube DC'd by pulmonary -Aggressive Lasix to remove fluid 60 mg every BID -CT surgery consulted -Desatted to 92% overnight requiring 2 L of oxygen to maintain saturation -Likely component of anxiety, pulmonary does not feel this is related to Pleural effusion. -Pulmonary toilet with incentive spirometry, out of bed as much as able, continue nebs -If SOB does not improve can consider a short course of steroids -Chest x-ray demonstrates unchanged pleural effusion this morning appreciate pulmonary and CT injury recommendations -Currently no further indication for chest tube -Given his history of cirrhosis would be careful with long-term drainage, if it is a hepatic hydrothorax will only lead to protein wasting (2) Multiple fractures of ribs: Patient with fractures of ribs 7-10 mid-axillary line, diagnosed by CT during last hospital admission. Possibly secondary to severe coughing in setting of recent PNA/bronchitis. Significant pain. unclear etiology see subjective above -Consult pain management appreciate recommendations -resume Oxycontin 10mg po BID -resume Oxycodone 5mg po q 6 hours -morphine to 2 mg IV every 2 hours as needed -Lidoderm patch -Bowel regimen MiraLAX scheduled 3 times daily, Colace prn -Incentive spirometry q2h while awake -Conventionally rib fractures are no longer repaired, furthermore with this patient's numerous comorbidities he is a poor surgical candidate. -The patient will need need [place] [facility] on discharge to ensure he does not reinjure his intercostal vasculature (3) Cirrhosis: Patient with history of liver cirrhosis thought to be secondary to EtOH abuse. Child Class B, MELD score =11. MRI performed on 01/11/18 with two lesions suspicious for HCC. AFP level on 04/29/18 was 22.8 (relatively stable, was 27.9 on 07/23/17 and 18.9 on 01/18/18). Patient reports that he follows with Dr. Petty for this and has been doing well. Patient with anasarca today. Patient has been on multiple courses of Prednisone over the past month which is most likely contributing to fluid retention. Is not encephalopathic, does not appear to have significant ascites, liver labs are essentially unchanged from prior. Do not suspect decompensated cirrhosis. Weight is 120kg, was 136kg on discharge but patient reports appx 15 pound gain over the last 2 weeks. Mildly elevated K at 5.2. -GI signed off -Patient more edematous today, not having significant urine output. Creatinine is holding will increase diuresis -Lasix 60 mg IV BID -Spironolactone 50 mg p.o. twice daily -Low Na/CC diet -Daily weights 132.7->131.2->130.2 -Daily BMP (4) COPD (chronic obstructive pulmonary disease): Patient with COPD, +diffuse wheezing noted on exam. Satting well on room air -Supplemental O2 PRN to maintain sats 92% -DuoNebs q 6 hours -Albuterol q 2 hours PRN -Will not continue steroids at this time (5) Hypertension: Blood pressure well controlled at present no longer hypotensive -Continue Atenolol -Started on metoprolol succinate 50 mg p.o. daily -Diuretics as above -Continue to monitor (6) Rapid atrial fibrillation: Patient with history of AF . Intermittent tachycardia currently pulse is 102. Tachycardia likely secondary to pain and poor oxygenation secondary to pleural effusion -Treatment of pain as above, supplemental O2 -Continue Atenolol BID -Metoprolol succinate 50 mg p.o. daily -Telemetry monitoring (7) Hyponatremia: Wn=646. Near baseline. Patient is on salt tablets at home. -DC salt tablets -Diuresis as above -Fluid restriction 2L -Daily BMP -Completed albumin infusion -If sodium continues downtrending can consider hypertonic saline and/or resumption of salt tabs -Liver function studies normal, Tbili 2.5 (8) Abdominal wall contusion: H/H stable. Patient with significant abdominal pain -Pain control as above PT/OT recommend acute rehab F/E/N -low-salt diet Ppx -Lovenox Code -Full per discussion with patient Dispo - medically stable for rehab Subjective Patient sitting upright in bed this morning in no acute distress. Reports having a difficult night overnight finding it difficult to sleep in a hospital setting. Patient reports subjective improvement in his breathing status post aggressive Lasix. His kidneys appear to be tolerating the Lasix regimen and he is no longer weeping from his lower extremities I think that he may require this as an outpatient assuming his kidneys continue tolerated. Patient seems to be stable from a chest standpoint, probably moving more towards discharge now. Case management met with the patient he requests [facility] referral placed. Patient tolerating his diet, voiding, sleeping okay, has not moved his bowels since admission. Patient denies fevers, chills, nausea, vomiting, diarrhea, muscle aches or pains, congestion, malaise or other signs and symptoms of acute infectious process Patient endorses pain in the right chest, and constipation Physical Exam Physical Exam: General: Obese male in no acute distress Eyes: EOMI/PERRLA Neck: Trachea midline, normal to visual inspection, negative JVD Chest: good air movement, crackles at the lung bases b/l, wheezes present bilaterally, chest tube is been removed, draining serosanguineous fluid from insertion site Cardiac: Tachycardic, irregularly irregular, normal S1 and S2, did not appreciate murmurs rubs or gallops 2+ pitting edema to the knee GI: Abdomen less distended normal bowel sounds nontender to palpation, no appreciable masses, ecchymosis resolving in the periumbilical area extending to his right flank and up the right costal's improving MSK: Moves all extremities Skin: Warm dry and intact, significant ecchymosis throughout his body. The worst patch is described above Neuro: Calm cooperative AAO x4 Results & Data Vital Signs (Past 12 Hours) Vital Signs Temp Pulse Pulse Resp BP Pulse Ox 06/09/18 07:21 36.7 C 83 20 108/71 100 06/09/18 06:56 77 18 96 06/09/18 04:28 82 20 98 06/09/18 04:00 36.6 C 71 20 100/63 97 06/09/18 00:00 36.7 C 89 20 103/67 95 06/08/18 23:35 95 H Laboratory Results 06/09/18 06/09/18 Range/Units 06:15 06:15 WBC 5.26 (4.8-10.8) K/uL RBC 2.55 L (4.7-6.1) M/uL Hgb 8.4 L (14.0-18.0) g/dL Hct 25.0 L (42-52) % MCV 98.0 (80-100) fL MCH 32.9 (25-34) pg MCHC 33.6 (32-36) g/dL RDW Std Deviation 65.1 H (36.4-46.3) fL RDW Coeff of Zack 18.3 H (11.5-14.5) % Plt Count 135 (130-400) K/uL MPV 9.4 (7.4-10.4) fL Immature Gran % (Auto) 0.2 % Neut % (Auto) 66.1 % Lymph % (Auto) 14.1 % [place] % (Auto) 14.3 % Eos % (Auto) 4.9 % Baso % (Auto) 0.4 % Immature Gran # (Auto) 0.01 (0.00-0.02) K/uL Neut # (Auto) 3.48 (1.4-6.5) K/uL Lymph # (Auto) 0.74 L (1.2-3.4) K/uL [place] # (Auto) 0.75 H (0.11-0.59) K/uL Eos # (Auto) 0.26 (0-0.5) K/uL Baso # (Auto) 0.02 (0-0.2) K/uL Sodium 127 L (136-145) mmol/L Potassium 4.0 (3.5-5.1) mmol/L Chloride 92 L (98-107) mmol/L Carbon Dioxide 32 (21-32) mmol/L Anion Gap 3.0 (3-11) BUN 12 (7-18) mg/dl Creatinine 0.72 (0.6-1.4) mg/dl Est Cr Clr Drug Dosing 127.4 ml/min Est GFR ( Amer) 111.1 Est GFR (Non-Af Amer) 95.9 BUN/Creatinine Ratio 16.6 (10-20) Glucose 106 H (70-99) mg/dl Calcium 8.4 L (8.5-10.1) mg/dl Total Bilirubin 2.5 H (0.2-1) mg/dl AST 35 (15-37) U/L ALT 30 (12-78) U/L Alkaline Phosphatase 131 H (45-117) U/L Total Protein 5.6 L (6.4-8.2) gm/dl Albumin 2.9 L (3.4-5.0) gm/dl Globulin 2.7 (2.5-4.0) gm/dl Albumin/Globulin Ratio 1.1 (0.9-2) Medications Administered Current Inpatient Medications Acetaminophen (Tylenol) 650 mg PO Q6H PRN PRN Reason: Pain or Fever Stop: 07/02/18 15:53 Albuterol (Duoneb) 3 ml NEB QIDR [facility] Stop: 07/02/18 15:59 Last Admin: 06/09/18 06:55 Dose: 3 ml Documented by: Albuterol (Ventolin 0.5% 2.5mg/0.5ml) 2.5 mg NEB Q2H PRN PRN Reason: SOB/Wheeze Stop: 07/02/18 15:53 Last Admin: 06/07/18 22:01 Dose: 2.5 mg Documented by: Atenolol (Tenormin) 100 mg PO BID [facility] Stop: 07/02/18 20:59 Last Admin: 06/09/18 09:23 Dose: 100 mg Documented by: Benzonatate (Tessalon Perle) 100 mg PO TID PRN PRN Reason: cough Stop: 07/02/18 16:29 Budesonide/Formoterol Fumarate (Symbicort 160mcg/4.5mcg) 2 puffs INH BID [facility] Stop: 07/05/18 08:59 Last Admin: 06/09/18 09:23 Dose: 2 puffs Documented by: Digoxin (Lanoxin) 0.125 mg PO DAILY@1600 [facility] Stop: 07/05/18 15:59 Last Admin: 06/08/18 16:36 Dose: 0.125 mg Documented by: Docusate Sodium (Colace) 100 mg PO BID PRN PRN Reason: Constipation Stop: 07/02/18 15:53 Folic [facility] ([facility]vite) [facility] [place] Stop: 07/03/18 08:59 Last Admin: 06/09/18 09:19 Dose: 7 mg Documented by: Sodium Chloride (Nss) 250 mls @ 15 mls/hr IV .[id number] PRN PRN Reason: For Transfusion Stop: 07/06/18 15:28 Furosemide 60 mg/ Syringe 6 mls @ 4 mls/min IV BID17 [facility] Stop: 07/08/18 16:59 Last Admin: 06/09/18 09:18 Dose: 4 mls/min Documented by: Lidocaine (Lidoderm 5%) [facility] [place] Stop: 07/02/18 16:29 Last Admin: 06/09/18 09:20 Dose: 1 patch Documented by: Metoprolol Succinate (Toprol Xl) 50 mg PO [facility] Stop: 07/05/18 08:59 Last Admin: 06/09/18 09:24 Dose: 50 mg Documented by: Metoprolol Tartrate (Lopressor) 5 mg IV Q4 PRN PRN Reason: tachycardia Stop: 07/02/18 15:53 Last Admin: 06/03/18 23:31 Dose: 5 mg Documented by: Miscellaneous (Remove Lidoderm Patch) 1 ea N/A DAILY@2100 [facility] Stop: 07/02/18 20:59 Last Admin: 06/08/18 20:39 Dose: Not Given Documented by: Morphine Sulfate (Morphine Sulfate) 2 mg IV Q4H PRN PRN Reason: Pain Stop: 06/19/18 15:18 Naloxone HCl (Narcan) 0.1 mg IV Q5M PRN; Protocol PRN Reason: Oversedation/Resp Depression Stop: 06/18/18 08:36 Ondansetron HCl (Zofran) 4 mg IV Q6H PRN PRN Reason: Nausea Stop: 07/02/18 15:53 Oxycodone HCl (Roxicodone Immediate Rel) 5 mg PO Q6H PRN PRN Reason: Pain Stop: 06/19/18 15:16 Last Admin: 06/09/18 03:36 Dose: 5 mg Documented by: Oxycodone HCl (Oxycontin) 10 mg PO BID [facility] Stop: 06/19/18 20:59 Last Admin: 06/09/18 09:17 Dose: 10 mg Documented by: Pantoprazole Sodium (Protonix) 40 mg PO QAM [facility] Stop: 07/03/18 08:59 Last Admin: 06/09/18 09:22 Dose: 40 mg Documented by: Polyethylene Glycol (Miralax Powder Packet) 17 gm PO TID [facility] Stop: 07/07/18 13:59 Last Admin: 06/09/18 09:22 Dose: 17 gm Documented by: Spironolactone (Aldactone) 50 mg PO BID [facility] Stop: 07/02/18 20:59 Last Admin: 06/09/18 09:19 Dose: 50 mg Documented by: Resident Activity Tracking Resident Involvement: Resident Care Provided Care Provided: Adult Hospital Medicine (1) Multiple fractures of ribs Encounter type: initial encounter Fracture type: closed Laterality: right Qualified Code(s): S22.41XA - Multiple fractures of ribs, right side, initial encounter for closed fracture (2) Cirrhosis Hepatic cirrhosis type: alcoholic cirrhosis Ascites presence: with ascites Qualified Code(s): K70.31 - Alcoholic cirrhosis of liver with ascites (3) COPD (chronic obstructive pulmonary disease) COPD type: unspecified COPD Qualified Code(s): J44.9 - Chronic obstructive pulmonary disease, unspecified (4) Hypertension Hypertension type: essential hypertension Qualified Code(s): I10 - Essential (primary) hypertension (5) Abdominal wall contusion Encounter type: initial encounter Qualified Code(s): S30.1XXA - Contusion of abdominal wall, initial encounter
[2018-06-09] MEDS ORDERED: BUMETANIDE 1 MG TAB PO SCH (10:30)
--- NOTE | 2018-06-09 13:01 | Pulmonology Progress Note ---
Date of Service June 09, 2018 Assessment & Plan (1) Pleural effusion, right: pleural effusion with hemopneumothorax. chest tube removed 06/06. if reaccumulating may need further intervention but nothing right now. doubt shortness of breath related to pleural effusion. needs continued pulmo nary toilet with incentive spirometry. OOB as much as able. continue nebs COPD- does have some wheezing continue albuterol ipratropium. 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 CV: RRR nl s1,s2 no murmurs rubs or gallops Lungs: slight wheezing bilaterally. no accessory muscle use. Abd: soft nontender nondistended. normal bowel sounds Ext: no edema. no cyanosis, no clubbing Skin: warm dry Neuro: alert and oriented. moving all extremities Psych: normal mood and affect Results & Data Vital Signs (Past 12 Hours) Vital Signs Temp Pulse Resp BP BP Pulse Ox 06/09/18 11:53 36.7 C 110 H 20 113/67 99 06/09/18 10:55 81 18 99 06/09/18 07:21 36.7 C 83 20 108/71 100 06/09/18 06:56 77 18 96 06/09/18 04:28 82 20 98 06/09/18 04:00 36.6 C 71 20 100/63 97
[2018-06-09] MEDS: DIGOXIN 0.125 MG TAB PO SCH ×2 (17:27→18:11)
--- NOTE | 2018-06-09 18:16 | Progress Note ---
DATE: 06/09/2018 The patient was seen today on 06/09/2018. We have not checked a chest x-ray today, but yesterday shows he probably had some fluid reaccumulating, although it is not significant. He is requiring oxygen today, however. He has got some wheezing. He looks much better than when he came in, but I still have concerns about him. At this point, we will check another x-ray on him tomorrow more to ensure that he is not reaccumulating. NANNETTE
[2018-06-09] MEDS: BUDESONIDE 0.5 MG/2 ML VIAL (PULMICORT) NEB SCH (18:55)
[2018-06-10] MEDS ORDERED: SODIUM CHLORIDE 0.9% 250 ML IV PRN (05:44)
[2018-06-10 05:48] LABS: Hematocrit (blood only) 29.5 % (42-52); Hemoglobin 9.6 g/dL (14.0-18.0); Mean Corpuscular Hgb Conc 32.5 g/dL (32-36); Mean Corpuscular Volume 101.7 fL (80-100); Mean Platelet Volume 9.6 fL (7.4-10.4); Nucleated RBC # (auto) 0.08 K/uL (0-0); Nucleated RBC % (auto) 0.7 %; Platelet Count 130 K/uL (130-400); RDW Coefficient of Variation 18.2 % (11.5-14.5); RDW Standard Deviation 67.4 fL (36.4-46.3); White Blood Count 10.92 K/uL (4.8-10.8)
[2018-06-10] MEDS ORDERED: AMIODARONE 360MG / 200ML D5W IV ONE (06:06)
[2018-06-10] MEDS ORDERED: NOREPINEPHRINE BIT INJ 8 MG in DEXTROSE 5% 500 ML IV STA (06:10)
[2018-06-10 06:13] LABS: Basophils # (auto) 0.04 K/uL (0-0.2); Basophils % (auto) 0.4 %; Echinocytes 1+; Eosinophils # (auto) 0.45 K/uL (0-0.5); Eosinophils % (auto) 4.1 %; Immature Granulocytes # (auto) 0.14 K/uL (0.00-0.02); Immature Granulocytes % (auto) 1.3 %; Lymphocytes # (auto) 5.24 K/uL (1.2-3.4); Monocytes # (auto) 1.36 K/uL (0.11-0.59); Monocytes % (auto) 12.5 %; Neutrophils # (auto) 3.69 K/uL (1.4-6.5); Neutrophils % (auto) 33.7 %
[2018-06-10] MEDS ORDERED: MIDAZOLAM HCL 125 MG/250 ML BAG IV PRN (06:16)
[2018-06-10] MEDS ORDERED: MIDAZOLAM HCL 5 MG/ML 1 ML VIAL IV STA ×2 (06:16→07:12)
[2018-06-10] MEDS ORDERED: MIDAZOLAM HCL 1 MG/ML 2ML VIAL ONE (06:16)
[2018-06-10 06:29] LABS: iSTAT Allen Test Pass; iSTAT Arterial Blood Gas HCO3 31 meg/L (19-24); iSTAT Arterial Blood Gas pCO2 64 mmHg (35-46); iSTAT Arterial Blood Gas pH 7.29 (7.35-7.45); iSTAT Carbon Dioxide 33 mEq/l (24-31); iSTAT FiO2 100 %; iSTAT Site R Radial
--- NOTE | 2018-06-10 06:47 | XRay Report ---
XR chest 1V portable CLINICAL HISTORY: tube placement COMPARISON STUDY: 06/08/2017 FINDINGS: Interval development of a component of pulmonary edema. Multiple displaced right-sided rib fractures. Endotracheal tube 2.3 cm above the gonzalo. Slight blunting right lateral costophrenic angl e. Nasogastric tube inferior to the diaphragm. IMPRESSION: 1. Interval development of pulmonary edema. 2. Multiple displaced right-sided rib fractures. 3. No evidence pneumothorax. 4. Endotracheal tube 2.5 cm above the gonzalo. 5. Nasogastric tube inferior to the diaphragm within the stomach. The above report was generated using voice recognition software. It may contain grammatical, syntax or spelling errors. Electronically signed by: Samson Carlton M.D. 06/10/2018 6:46 AM
[2018-06-10] MEDS: PROPOFOL 1,000 MG/100 ML VIAL IV SCH ×3 (07:20→23:51)
[2018-06-10] MEDS: AMIODARONE / D5W 360 MG/200 ML BAG IV SCH ×2 (07:21→16:40)
[2018-06-10] MEDS: ALBUT/IPRATROP 3MG/0.5MG NEB 3 ML VIAL NEB SCH ×4 (07:35→19:53)
[2018-06-10] MEDS: BUDESONIDE 0.5 MG/2 ML VIAL (PULMICORT) NEB SCH ×2 (07:35→20:05)
[2018-06-10] MEDS ORDERED: fentaNYL citrate 100 MCG/2 ML VIAL IV PRN (08:17)
--- NOTE | 2018-06-10 08:36 | Procedure Note ---
Procedure Note Date of Service June 10, 2018 THOMAS LUO was called on the floor which I responded to from the emergency room. I arrived to find the hospitalist managing the care of the patient as ACLS treatment was being performed in addition to CPR. While he was preparing for intubation, ROSC was achieved. Additional medications were being given through the IV. Patient was being bagged by respiratory therapy at the head of the bed with an oropharyngeal airway in place. I proceeded to the head of the bed and using direct visualization and a 4 MAC intubated the patient on first pass with a 7.5 ET tube. Vocal cords were visualized. The airway was suctioned to clear it of nonbloody secretions. No evidence of trauma or edema. Upon passing the ET tube directly through the vocal cords, this was secured. Condensation was noted in the ET tube, positive color change noted on capnography, breath sounds heard bilaterally, no adventitious noises heard with auscultation of the abdomen. Tube secured by respiratory therapy and bagging continued to assist in ventilating the patient who did not have an adequate ventilatory rate and effort at that time despite return of pulses. The hospitalist team continued treating the patient and began preparing the patient for transfer to the ICU. Coding
[2018-06-10] MEDS: FAMOTIDINE 20 MG TAB OG SCH (08:57)
[2018-06-10] MEDS: fentaNYL DRIP 1,250 MCG/250 ML BAG IV SCH (08:58)
--- NOTE | 2018-06-10 09:43 | Procedure Note ---
Procedure Note Date of Service June 10, 2018 Note R subclavian central line after informed consent using full sterile precautions - cap, mask, gown and gloves. full drape site anesthetized with 1% lidocaine using landmarks R subclavian vein was accessed and triple lumen catheter placed using seldinger technique. good flow in all ports sutured in place and tegaderm placed pt tolerated well except for PVCs from wire which stopped when wire withdrawn CXR pending Coding
--- NOTE | 2018-06-10 09:52 | Cardiology Consultation ---
Date of Consultation June 10, 2018 Assessment & Plan (1) Cardiac arrest: Although the data is a little hard to interpret and there is a lot of artifact on telemetry he did clearly have ventricular fibrillation and required cardioversion which did convert his rhythm successfully. Leading up to it there is a suggestion that he had bradycardia although there is a lot of artifact and he was off the monitor for part of the time so it is hard to tell. I am bothered by the fact that he seems to have had a lot of injuries lately and a history of syncope and perhaps he has a history of bradycardia with falling, it is unlikely he has a history of ventricular fibrillation with spontaneous termi nation. He did not have pre-existing significant disease and based on his electrocardiogram this does not appear to be an acute coronary event. I think therefore was a primary arrhythmia, I think he will need some sort of device whether to pacemaker or defibrillator we will have to sort out. For the moment I would continue the amiodarone and keep him on external patches so we could quickly hooked up to an external defibrillator if needed. (2) Multiple fractures of ribs: I am bothered by the fact that he had these rib fractures, I do not know that you could have rib fractures to that extent by coughing. I am more inclined to believe that he fell and broke his ribs but does not recall it, suggesting that he had a syncopal event. He also evidently had an ankle fracture recently from slipping on wet grass, perhaps that was another syncopal or presyncopal event. He does have a history of syncope many years ago but may have more frequent episodes than we realize. If that is the case there probably bradycardic not ventricular fibrillation, his recent ventricular fibrillation may have been bradycardia induced however these things are very difficult to prove. (3) Permanent atrial fibrillation: He has permanent atrial fibrillation, he is still in atrial fibrillation even following his shock. He is not on anticoagulation due to his cirrhosis and a history of GI bleeding. We may need to look for other causes of this arrest such as pulmonary embolism or possibly even a stroke, so that may depend on whether his oxygen saturation returns to normal. He is currently being weaned off of the ventilator. Specifically related to his arrhythmia his rate is under good control and we are not going to try to convert the rhythm so I would simply watch it. (4) CAD (coronary artery disease): He has catheterization proven coronary artery disease however this event does not seem likely to be due to an ischemic event such as an acute myocardial infarction. There is no electrocardiographic evidence of it and the echocardiogram may not be very helpful following an event like this but we should look for it, specifically wall motion abnormalities. I think it might be helpful to draw cardiac enzymes, they will certainly be elevated but the pattern may be helpful. History of Present Illness Reason for Consultation: Cardiac arrest Attending Physician: Fadi Boyd DO History of Present Illness This is a pleasant 67-year-old gentleman who has a history of paroxysmal atrial fibrillation which was first identified in July of 2006 on a stress test, subsequently it was also observed on evaluation for a nosebleed in August of 2009. At the time he was asymptomatic, he is not aware of when the episodes started and therefore he was treated with beta blockade and aspirin (due to a low CHADs score). He was evaluated in the emergency room on July 04, 2010 for left arm tingling, he had an extensive evaluation which included echocardiography showing normal LV function and mild left atrial enlargement, carotid ultrasound which was negative and a CT scan and MRI both negative for CVA. The left arm tingling resolved, it did not sound cardiac, it is possible it was a TIA. He was in atrial fibrillation and he was started on warfarin anticoagulation, however after only a few days of 5 mg daily his INR increased significantly and the Coumadin was discontinued. We subsequently restarted at a lower dose, however he remained subtherapeutic. We had planned on performing cardioversion, however due to difficulty in regulating his warfarin that was not performed until we eventually switched him to Pradaxa and were able to cardiovert him on November 20, 2010. He visited the emergency room on November 26, 2010 for some left-sided chest discomfort (which was noncardiac) at which time he was in sinus rhythm still. At his December 15, 2011 office visit he was noted to have an irregular pulse and was back in atrial fibrillation. He was not aware of this change. We elected to leave him in atrial fibrillation using rate control and anticoagulation since he was asymptomatic. He does have a history of syncope, that occurred in July of 2007 and prompted an evaluation including a stress echo at that time (which was normal). He recalls standing up to go to the bathroom and having a syncopal event, this has not recurred to my knowledge although he possibly had a syncopal event resulting in rib fractures recently that he may not remember. Due to insurance reasons Pradaxa was very expensive but he was not having difficulty with it, we therefore switched him to Eliquis 5 mg twice a day on 08/02/2013. That is much cheaper for him and he was tolerating it well however he was hospitalized for a GI bleed, this was gastritis I believe and he was back on Eliquis but developed another GI bleed. He was therefore not been on an anticoagulant since. I last saw him April 10, 2017 at which time he had been evaluated for liver transplant (which evidently is on hold) and he was being evaluated for an adrenal mass. He also had a catheterization December 24, 2016 because of his plans for liver transplantation and that showed nonobstructive coronary artery disease. He remained in atrial fibrillation, he remained off of anticoagulation but he was feeling well with regards to his arrhythmia. More recently he presented to the emergency room on May 21, 2018 with several weeks of chest discomfort, he was evaluated May 17, 2018 with a chest x-ray which showed normal ribs however he was found to have fractures of his right seventh through 10th ribs on presentation May 21. There was also a right pleural effusion. Evidently he denied a fall, although with his history of syncope perhaps he did fall. He had a thoracentesis performed May 22, 2018 and he was discharged on May 24, 2018. He then presented to the emergency room again on June 02, 2018 with recurrent hemothorax and required another thoracentesis on June 02, 2018 and ultimately a chest tube on June 04, 2018. He seems to have improved significantly subsequently and discharge was planned to a rehab center. This morning however he had an arrest. It is hard for me to tell exactly what happened from the information I currently have. It sounds as though he was having shortness of breath preceding this event, then apparently he became unresponsive, ultimately required CPR and shock for ventricular fibrillation and intubation. Review of his telemetry records is little bit difficult due to a lot of artifact but it appears that he was possibly very bradycardic initially, was on and off the monitor and there is a lot of artifact so it is hard to tell exactly but ultimately he converted to ventricular fibrillation and appears to have been in that for an uncertain period of time before receiving a shock with conversion to tachycardia. The total event looks like it is in the range of 4 minutes. The event is suggestive of a bradycardia induced arrhythmia rather than a primary cardiac event, perhaps hypoxic. He does have some oximetry reading suggesting a low oxygen saturation but they are infrequent and may be artifactual. He is currently on 100% oxygen but that may not be necessary. At the time of my evaluation he is on a ventilator, not responsive therefore I cannot interview him. His is at the bedside but was not present during this event. Allergies Allergy/AdvReac Type Severity Reaction Status Date / Time No Known Allergies Allergy Verified 06/02/18 10:50 Home Medications Home Medications Medication Instructions Recorded Confirmed Type atenolol 100 mg PO BID 01/06/18 06/02/18 History folic acid 7 mg PO QAM 01/06/18 06/02/18 History furosemide 40 mg PO QAM 01/06/18 06/02/18 History potassium chloride 20 mg PO QID 01/06/18 06/02/18 History umeclidinium-vilanterol [Anoro 1 puff INHALATION QAM 01/06/18 06/02/18 History Ellipta] pantoprazole 40 mg PO QAM 05/15/18 06/02/18 History albuterol sulfate 2 puff INH Q6H PRN 05/21/18 06/02/18 History ergocalciferol (vitamin D2) 50,000 unit PO WK 05/21/18 06/02/18 History [Vitamin D2] oxycodone 5 mg PO Q6H PRN 20 Days #40 tab 05/24/18 06/02/18 Rx oxycodone [OxyContin] 10 mg PO Q12 PRN 06/02/18 06/02/18 History prednisone 10 mg PO QAM 06/02/18 06/02/18 History sodium chloride 2 g PO BID 06/02/18 06/02/18 History spironolactone 50 mg PO BID 06/02/18 06/02/18 History Patient History Medical History Hypertension COPD (chronic obstructive pulmonary disease) CHF (congestive heart failure) Ascites (Acute) Asthmatic bronchitis (Acute) Cellulitis of leg Chest pain (Acute) Claudication (Acute) GI bleed (Resolved) Hyponatremia (Acute) Hypoxia (Acute) Rapid atrial fibrillation (Acute) Surgical History History of thoracentesis Family History Other Family history non-contributory Social History Preferred Language: Korean Communication Ability: Effective Visual Impairment: No Limitations Hearing Ability: Normal [employer]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 Beliefs That Will Affect Care: None marital status: Current Living Situation: Spouse current occupational status: retired Other Information That Helps Us Care for You: No Feels Safe at Home: Yes Safety Concerns: Feels Safe At This Time Smoking Status: Current every day smoker Tobacco Type: cigarettes Cigarettes Per Day: 20 Tobacco Cessation Education Requested by Patient: No Hx Alcohol Use: No Hx Substance Use: No Review of Systems Review of Systems: Unobtainable due to endotracheal tube and Unobtainable due to reduced consciousness Physical Exam Physical Exam: Constitutional: He is intubated and unresponsive. HEENT: Unremarkable on brief exam Neck: No jugular venous distention, carotid pulses are irregular but equal bilaterally without bruits. Pulmonary: Clear to auscultation bilaterally with decreased breath sounds on the right. Cardiac: Irregular rhythm with no murmur, gallop or rub. Abdomen: Soft, obese, nontender with normal bowel sounds. Extremities: No edema. Distal pulses intact. Neurologic: Could not be tested due to mental status and intubation. Skin: Various ecchymoses present. Results & Data Vital Signs (Past 12 Hours) Vital Signs Temp Pulse Pulse Resp BP BP BP 06/10/18 08:21 83 92/62 L 06/10/18 08:20 87 06/10/18 08:11 86 80/55 L 06/10/18 08:10 91 H 06/10/18 08:01 98 H 90/58 L 06/10/18 08:00 37.3 C 104 H 96 H 14 96/63 L 06/10/18 07:51 91 H 75/53 L 06/10/18 07:50 100 H 06/10/18 07:41 107 H 86/59 L 06/10/18 07:40 110 H 06/10/18 07:38 97 H 26 H 06/10/18 07:35 97 H 24 06/10/18 07:31 105 H 96/63 L 06/10/18 07:30 112 H 06/10/18 07:20 118 H 06/10/18 07:10 124 H 06/10/18 07:06 99 H 93/64 L 06/10/18 07:01 90 98/56 L 06/10/18 07:00 105 H 06/10/18 06:56 94 H 88/64 L 06/10/18 06:51 102 H 99/63 L 06/10/18 06:50 103 H 06/10/18 06:47 104 H 06/10/18 06:46 97 H 94/53 L 06/10/18 06:45 105 H 06/10/18 06:41 107 H 88/55 L 06/10/18 06:40 112 H 06/10/18 06:36 93 H 99/61 L 06/10/18 06:35 111 H 06/10/18 06:31 117 H 87/65 L 06/10/18 06:30 106 H 06/10/18 06:26 91 H 90/62 L 06/10/18 06:25 108 H 06/10/18 06:21 111 H 95/60 L 06/10/18 06:20 109 H 06/10/18 06:15 118 H 06/10/18 06:10 113 H 06/10/18 06:05 113 H 06/10/18 06:01 116 H 86/51 L 06/10/18 06:00 108 H 06/10/18 05:57 116/77 06/10/18 05:55 117 H 06/10/18 05:51 119 H 06/10/18 05:45 102 H 16 06/10/18 04:00 36.6 C 84 20 106/68 06/10/18 01:44 97 H 06/09/18 22:47 36.6 C 83 20 116/72 Pulse Ox 06/10/18 08:21 98 06/10/18 08:20 98 06/10/18 08:11 98 06/10/18 08:10 98 06/10/18 08:01 97 06/10/18 08:00 97 06/10/18 07:51 95 06/10/18 07:50 95 06/10/18 07:41 95 06/10/18 07:40 96 06/10/18 07:38 98 06/10/18 07:35 98 06/10/18 07:31 98 06/10/18 07:30 99 06/10/18 07:20 100 06/10/18 07:10 92 06/10/18 07:06 98 06/10/18 07:01 98 06/10/18 07:00 98 06/10/18 06:56 98 06/10/18 06:51 97 06/10/18 06:50 98 06/10/18 06:47 96 06/10/18 06:46 98 06/10/18 06:45 97 06/10/18 06:41 96 06/10/18 06:40 96 06/10/18 06:36 95 06/10/18 06:35 89 L 06/10/18 06:31 94 06/10/18 06:30 97 06/10/18 06:26 99 06/10/18 06:25 98 06/10/18 06:21 91 06/10/18 06:20 84 L 06/10/18 06:15 100 06/10/18 06:10 99 06/10/18 06:05 100 06/10/18 06:01 99 06/10/18 06:00 100 06/10/18 05:57 100 06/10/18 05:55 100 06/10/18 05:51 06/10/18 05:45 95 06/10/18 04:00 93 06/10/18 01:44 06/09/18 22:47 94 Diagnostic Findings Telemetry reviewed in detail, findings as noted in the HPI Electrocardiogram: His electrocardiogram after the event shows atrial fibrillation at a heart rate of [address]-T abnormalities but no acute findings. Not terribly dissimilar from recent electrocardiograms in the office. Echocardiogram: Pending (1) Multiple fractures of ribs Encounter type: initial encounter Fracture type: closed Laterality: right Qualified Code(s): S22.41XA - Multiple fractures of ribs, right side, initial encounter for closed fracture
--- NOTE | 2018-06-10 09:53 | Family Medicine Progress Note ---
Date of Service June 10, 2018 Assessment & Plan (1) Admitted to intensive care unit: Patient was transferred to the ICU status post cardiac arrest -Ventricular fibrillation requiring cardioversion to break pathological rhythm -Because of cardiac arrest is not entirely clear definitely some ventricular fibrillation question whether component of obstructive sleep apnea and/or obesity hypoventilation syndrome leading haptic episode which resulted in the arrhythmia. -Intubated with norepinephrine drip titrated to achieve maps greater than 65 management per ICU team -Cardiology consulted following recommendations -Primary arrhythmia will require pacemaker defibrillator -cont Amiodarone -Keep external patches hooked up -Question whether recent injuries and fractures were due to syncopal episode secondary to arrhythmia -Permanent atrial fibrillation -Consider work-up for PE and possible stroke -Not likely due to ACS (2) Pleural effusion, right: Patient with recurrent right sided pleural effusion, s/p thoracentesis on 05/22 with 350mL bloody fluid removed. Possibly traumatic in setting of multiple rib fractures. Patient with significant pain, tachypnea, requiring minimal O2 to maintain saturations. Patient also with significant anasarca h/o cirrhosis and CHF, recurrence of hemothorax vs other fluid accumulation. Overnight of 06/03-06/04 patient had increasing oxygen requirements and tachycardia unresponsive to Lopressor. Chest x-ray was obtained showing a worsening pleural effusion Dr. Velazco was contacted and recommended transfer to the ICU. 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 This likely explains the diffuse ecchymosis on his right side. This injury likely happened during prior presentation and fluid accumulation tamponaded not at the vessel. Upon thoracocentesis during this hospital admission the tamponade was removed and the vessel allowed to bleed. A chest tube was placed and maintained for 2 days, subsequently removed. Patient has been doing well since some drainage and drainage from the chest tube site, now has resolved. Patient was monitored on telemetry for for 2 days unfortunately yesterday evening he had a CODE BLUE resulting in transfer to the ICU and requiring cardioversion to stop ventricular tachycardia. During chest compressions it appears as if he sustained a pneumothorax. Chest tube was placed by Dr. Slater following ICU recommendations. -Mechanical ventilation status post arrest. -Had ABG demonstrating acute hypoxic respiratory failure with respiratory alkalosis. -Chest tube placed by Dr. Slater for pneumothorax -Management of intubation and chest tube per ICU team (3) Multiple fractures of ribs: Patient with fractures of ribs 7-10 mid-axillary line, diagnosed by CT during last hospital admission. Possibly secondary to severe coughing in setting of recent PNA/bronchitis. Significant pain. unclear etiology see subjective above. May have sustained further fractures during CPR -Consult pain management appreciate recommendations -resume Oxycontin 10mg po BID -resume Oxycodone 5mg po q 6 hours -morphine to 2 mg IV every 2 hours as needed -Lidoderm patch -Bowel regimen MiraLAX scheduled 3 times daily, Colace prn -Incentive spirometry q2h while awake -Conventionally rib fractures are no longer repaired, furthermore with this patient's numerous comorbidities he is a poor surgical candidate. -The patient will need need correction on discharge to ensure he does not reinjure his intercostal vasculature (4) Cirrhosis: Patient with history of liver cirrhosis thought to be secondary to EtOH abuse. Child Class B, MELD score =11. MRI performed on 01/11/18 with two lesions suspicious for HCC. AFP level on 04/29/18 was 22.8 (relatively stable, was 27.9 on 07/23/17 and 18.9 on 01/18/18). Patient reports that he follows with Dr. Petty for this and has been doing well. Patient with anasarca today. Patient has been on multiple courses of Prednisone over the past month which is most likely contributing to fluid retention. Is not encephalopathic, does not appear to have significant ascites, liver labs are essentially unchanged from prior. Do not suspect decompensated cirrhosis. Weight is 120kg, was 136kg on discharge but patient reports appx 15 pound gain over the last 2 weeks. Mildly elevated K at 5.2. -GI signed off -Patient more edematous today, not having significant urine output. Creatinine is holding will increase diuresis -Lasix 60 mg IV BID -Spironolactone 50 mg p.o. twice daily -Low Na/CC diet -Daily weights 132.7->131.2->130.2 -Daily BMP (5) COPD (chronic obstructive pulmonary disease): Patient with COPD, +diffuse wheezing noted on exam. Satting well on room air -Supplemental O2 PRN to maintain sats 92% -DuoNebs q 6 hours -Albuterol q 2 hours PRN -Will not continue steroids at this time (6) Hypertension: Blood pressure well controlled at present no longer hypotensive -Continue Atenolol -Started on metoprolol succinate 50 mg p.o. daily -Diuretics as above -Continue to monitor (7) Rapid atrial fibrillation: Patient with history of AF . Intermittent tachycardia currently pulse is 102. Tachycardia likely secondary to pain and poor oxygenation secondary to pleural effusion -Treatment of pain as above, supplemental O2 -Continue Atenolol BID -Metoprolol succinate 50 mg p.o. daily ICU status (8) Hyponatremia: Ks=705. Near baseline. Patient is on salt tablets at home. -DC salt tablets -Diuresis as above -Fluid restriction 2L -Daily BMP -Completed albumin infusion -If sodium continues downtrending can consider hypertonic saline and/or resumption of salt tabs -Liver function studies normal, Tbili 2.5 (9) Abdominal wall contusion: H/H stable. Patient with significant abdominal pain -Pain control as above PT/OT recommend acute rehab F/E/N -low-salt diet Ppx -Lovenox Code -Full per discussion with patient Dispo -ICU Supervising Physician Co-Signing Physician Notes I personally examined the patient and verified all james points of history and exam, discussed case, and agree with decision making with Dr Ferrari. Had an arrest early this morning. Appears to have been ventricular arrhythmias as the primary issue. Now intubated sedated in ICU. Discussed with degreasing solution reclaimer. Updated in detail to the best of my ability. Vitals noted, intubated and sedated but no distress. Breathing is unlabored on the vent. Skin shows no rashes no pallor or icterus. Neuro shows no focal deficits. Otherwise as above Cardiac arrestappears to have been a predominantly arrhythmogenic arrest. Continue antiarrhythmics and supportive care. Highly likely to need ICD. Appreciate cardiology input. Hypotensionmanage as per ICU. 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 Unclear the etiology of the CODE BLUE however he is heart heart rhythm deteriorated into torsades and ventricular fibrillation requiring electrical cardioversion to resume a normal rhythm. Patient was subsequently intubated. Patient responds to tactile stimulation. at the bedside very concerned and distressed stating I just do not want him to be in pain. Etiologies include potential actually derangement, sleep apnea, idiopathic. Physical Exam Physical Exam: General: morbidly obese male intubated Eyes: Deferred Neck: Deferred Chest: Ventilator sounds, otherwise clear to auscultation bilaterally Cardiac: Irregularly irregular rhythm rate intermittently controlled, normal S1 normal S2 GI: Obese abdomen with ecchymosis wrapping around the flank and up his side MSK: Deferred Skin: Diffuse ecchymosis Neuro: Alert and oriented x4 Psych: Sedated for intubation Results & Data Vital Signs (Past 12 Hours) Vital Signs Temp Pulse Pulse Resp BP BP BP 06/10/18 08:21 83 92/62 L 06/10/18 08:20 87 06/10/18 08:11 86 80/55 L 06/10/18 08:10 91 H 06/10/18 08:01 98 H 90/58 L 06/10/18 08:00 37.3 C 104 H 96 H 14 96/63 L 06/10/18 07:51 91 H 75/53 L 06/10/18 07:50 100 H 06/10/18 07:41 107 H 86/59 L 06/10/18 07:40 110 H 06/10/18 07:38 97 H 26 H 06/10/18 07:35 97 H 24 06/10/18 07:31 105 H 96/63 L 06/10/18 07:30 112 H 06/10/18 07:20 118 H 06/10/18 07:10 124 H 06/10/18 07:06 99 H 93/64 L 06/10/18 07:01 90 98/56 L 06/10/18 07:00 105 H 06/10/18 06:56 94 H 88/64 L 06/10/18 06:51 102 H 99/63 L 06/10/18 06:50 103 H 06/10/18 06:47 104 H 06/10/18 06:46 97 H 94/53 L 06/10/18 06:45 105 H 06/10/18 06:41 107 H 88/55 L 06/10/18 06:40 112 H 06/10/18 06:36 93 H 99/61 L 06/10/18 06:35 111 H 06/10/18 06:31 117 H 87/65 L 06/10/18 06:30 106 H 06/10/18 06:26 91 H 90/62 L 06/10/18 06:25 108 H 06/10/18 06:21 111 H 95/60 L 06/10/18 06:20 109 H 06/10/18 06:15 118 H 06/10/18 06:10 113 H 06/10/18 06:05 113 H 06/10/18 06:01 116 H 86/51 L 06/10/18 06:00 108 H 06/10/18 05:57 116/77 06/10/18 05:55 117 H 06/10/18 05:51 119 H 06/10/18 05:45 102 H 16 06/10/18 04:00 36.6 C 84 20 106/68 06/10/18 01:44 97 H 06/09/18 22:47 36.6 C 83 20 116/72 Pulse Ox 06/10/18 08:21 98 06/10/18 08:20 98 06/10/18 08:11 98 06/10/18 08:10 98 06/10/18 08:01 97 06/10/18 08:00 97 06/10/18 07:51 95 06/10/18 07:50 95 06/10/18 07:41 95 06/10/18 07:40 96 06/10/18 07:38 98 06/10/18 07:35 98 06/10/18 07:31 98 06/10/18 07:30 99 06/10/18 07:20 100 06/10/18 07:10 92 06/10/18 07:06 98 06/10/18 07:01 98 06/10/18 07:00 98 06/10/18 06:56 98 06/10/18 06:51 97 06/10/18 06:50 98 06/10/18 06:47 96 06/10/18 06:46 98 06/10/18 06:45 97 06/10/18 06:41 96 06/10/18 06:40 96 06/10/18 06:36 95 06/10/18 06:35 89 L 06/10/18 06:31 94 06/10/18 06:30 97 06/10/18 06:26 99 06/10/18 06:25 98 06/10/18 06:21 91 06/10/18 06:20 84 L 06/10/18 06:15 100 06/10/18 06:10 99 06/10/18 06:05 100 06/10/18 06:01 99 06/10/18 06:00 100 06/10/18 05:57 100 06/10/18 05:55 100 06/10/18 05:51 06/10/18 05:45 95 06/10/18 04:00 93 06/10/18 01:44 06/09/18 22:47 94 Laboratory Results 06/10/18 06/10/18 06/10/18 Range/Units 16:44 16:14 11:31 WBC (4.8-10.8) K/uL RBC (4.7-6.1) M/uL Hgb (14.0-18.0) g/dL Hct (42-52) % MCV (80-100) fL MCH (25-34) pg MCHC (32-36) g/dL RDW Std Deviation (36.4-46.3) fL RDW Coeff of Zack (11.5-14.5) % Plt Count (130-400) K/uL MPV (7.4-10.4) fL Immature Gran % (Auto) % Neut % (Auto) % Lymph % (Auto) % Pacific % (Auto) % Eos % (Auto) % Baso % (Auto) % Immature Gran # (Auto) (0.00-0.02) K/uL Neut # (Auto) (1.4-6.5) K/uL Lymph # (Auto) (1.2-3.4) K/uL Pacific # (Auto) (0.11-0.59) K/uL Eos # (Auto) (0-0.5) K/uL Baso # (Auto) (0-0.2) K/uL Absolute Nucleated RBC (0-0) K/uL Nucleated RBC % (auto) % Blood Smear Review Echinocytes PT 14.4 H (9.0-12.0) Seconds INR 1.4 H (0.9-1.1) APTT 26.3 (21.0-31.0) Seconds PTT Ratio 1.0 Sample Site POC pH (7.35-7.45) POC pCO2 (35-46) mmHg POC pO2 (80-95) mmHg POC HCO3 (19-24) sabrina/L POC Total CO2 (24-31) mEq/l POC Base Excess (-9-1.8) sabrina/L POC ABG O2 Sat (90-95) % Roderick Test O2 Delivery Device POC O2 Rate Minute Ventilation POC FiO2 % Tidal Volume PEEP POC Glucose 159 H (70-99) POC Glucose (other) 175 H (70-99) mg/dl Nasal Screen MRSA (PCR) (Negative) Digoxin (0.8-2.0) ng/ml Blood Type Antibody Screen Crossmatch 06/10/18 06/10/18 06/10/18 Range/Units 10:02 06:43 06:15 WBC (4.8-10.8) K/uL RBC (4.7-6.1) M/uL Hgb (14.0-18.0) g/dL Hct (42-52) % MCV (80-100) fL MCH (25-34) pg MCHC (32-36) g/dL RDW Std Deviation (36.4-46.3) fL RDW Coeff of Zack (11.5-14.5) % Plt Count (130-400) K/uL MPV (7.4-10.4) fL Immature Gran % (Auto) % Neut % (Auto) % Lymph % (Auto) % Pacific % (Auto) % Eos % (Auto) % Baso % (Auto) % Immature Gran # (Auto) (0.00-0.02) K/uL Neut # (Auto) (1.4-6.5) K/uL Lymph # (Auto) (1.2-3.4) K/uL Pacific # (Auto) (0.11-0.59) K/uL Eos # (Auto) (0-0.5) K/uL Baso # (Auto) (0-0.2) K/uL Absolute Nucleated RBC (0-0) K/uL Nucleated RBC % (auto) % Blood Smear Review Echinocytes PT (9.0-12.0) Seconds INR (0.9-1.1) APTT (21.0-31.0) Seconds PTT Ratio Sample Site L Radial R Radial POC pH 7.50 H 7.29 L (7.35-7.45) POC pCO2 42 64 H (35-46) mmHg POC pO2 146 H 193 H (80-95) mmHg POC HCO3 33 H 31 H (19-24) sabrina/L POC Total CO2 34 H 33 H (24-31) mEq/l POC Base Excess 9.0 H 4.0 H (-9-1.8) sabrina/L POC ABG O2 Sat 99.0 H 100.0 H (90-95) % Roderick Test Pass Pass O2 Delivery Device Ventilator Ventilator POC O2 Rate 14 14 Minute Ventilation 7 POC FiO2 100 100 % Tidal Volume 500 PEEP 10 10 POC Glucose (70-99) POC Glucose (other) (70-99) mg/dl Nasal Screen MRSA (PCR) (Negative) Digoxin 0.6 L (0.8-2.0) ng/ml Blood Type Antibody Screen Crossmatch 06/10/18 06/10/18 06/10/18 Range/Units 06:00 05:41 05:40 WBC 10.92 H (4.8-10.8) K/uL RBC 2.90 L (4.7-6.1) M/uL Hgb 9.6 L (14.0-18.0) g/dL Hct 29.5 L (42-52) % MCV 101.7 H (80-100) fL MCH 33.1 (25-34) pg MCHC 32.5 (32-36) g/dL RDW Std Deviation 67.4 H (36.4-46.3) fL RDW Coeff of Zack 18.2 H (11.5-14.5) % Plt Count 130 (130-400) K/uL MPV 9.6 (7.4-10.4) fL Immature Gran % (Auto) 1.3 % Neut % (Auto) 33.7 % Lymph % (Auto) 48.0 % Pacific % (Auto) 12.5 % Eos % (Auto) 4.1 % Baso % (Auto) 0.4 % Immature Gran # (Auto) 0.14 H (0.00-0.02) K/uL Neut # (Auto) 3.69 (1.4-6.5) K/uL Lymph # (Auto) 5.24 H (1.2-3.4) K/uL Pacific # (Auto) 1.36 H (0.11-0.59) K/uL Eos # (Auto) 0.45 (0-0.5) K/uL Baso # (Auto) 0.04 (0-0.2) K/uL Absolute Nucleated RBC 0.08 H (0-0) K/uL Nucleated RBC % (auto) 0.7 % Blood Smear Review Echinocytes 1+ PT (9.0-12.0) Seconds INR (0.9-1.1) APTT (21.0-31.0) Seconds PTT Ratio Sample Site POC pH (7.35-7.45) POC pCO2 (35-46) mmHg POC pO2 (80-95) mmHg POC HCO3 (19-24) sabrina/L POC Total CO2 (24-31) mEq/l POC Base Excess (-9-1.8) sabrina/L POC ABG O2 Sat (90-95) % Roderick Test O2 Delivery Device POC O2 Rate Minute Ventilation POC FiO2 % Tidal Volume PEEP POC Glucose (70-99) POC Glucose (other) (70-99) mg/dl Nasal Screen MRSA (PCR) Negative (Negative) Digoxin (0.8-2.0) ng/ml Blood Type A Positive Antibody Screen NEGATIVE Crossmatch See Detail Medications Administered Current Inpatient Medications Albuterol (Duoneb) 3 ml NEB QIDR [facility] Stop: 07/02/18 15:59 Last Admin: 06/10/18 16:02 Dose: 3 ml Documented by: Budesonide (Pulmicort Respules) 0.25 mg NEB BIDR [facility] Stop: 07/09/18 19:59 Last Admin: 06/10/18 07:35 Dose: 0.25 mg Documented by: Budesonide/Formoterol Fumarate (Symbicort 160mcg/4.5mcg) 2 puffs INH BID [facility] Stop: 07/05/18 08:59 Last Admin: 06/09/18 20:16 Dose: 2 puffs Documented by: Famotidine (Pepcid) 20 mg OG QAM [facility] Stop: 07/10/18 08:59 Last Admin: 06/10/18 08:57 Dose: 20 mg Documented by: Fentanyl Citrate (Fentanyl Citrate) 25 mcg IV ONE PRN PRN Reason: Pain Not Controlled by Drip Stop: 06/24/18 08:16 Sodium Chloride (Nss) 250 mls @ 15 mls/hr IV .[id number] PRN PRN Reason: For Transfusion Stop: 07/06/18 15:28 Sodium Chloride (Nss) 250 mls @ 15 mls/hr IV .[id number] PRN PRN Reason: For Transfusion Stop: 07/10/18 05:43 Norepinephrine Bitartrate 8 mg (/ Dextrose) 508 mls @ 99.21 mls/hr IV .Q5H8M PRN; Protocol PRN Reason: TITRATE Stop: 07/10/18 05:57 Last Titration: 06/10/18 16:39 Dose: 0.2 mcg/kg/min, 99.2 mls/hr Documented by: Amiodarone HCl/Dextrose (Nexterone / D5w) 360 mg in 200 mls @ 16.667 mls/hr IV .Q12H [facility] Stop: 07/10/18 06:59 Last Admin: 06/10/18 16:40 Dose: 0.5 mg/min, 16.7 mls/hr Documented by: Propofol (Diprivan) 1,000 mg in 100 mls @ 7.962 mls/hr IV .[id number] [facility]YSIA; Protocol Stop: 06/13/18 07:11 Last Admin: 06/10/18 12:03 Dose: 10 mcg/kg/min, 8 mls/hr Documented by: Fentanyl Citrate (Fentanyl Drip) 1,250 mcg in 250 mls @ 15 mls/hr IV .[id number] [facility]YSIA; Protocol Stop: 06/24/18 08:16 Last Titration: 06/10/18 18:08 Dose: 75 mcg/hr, 15 mls/hr Documented by: Heparin Sodium/Dextrose (Heparin Sodium/Dextrose) 25,000 units in 500 mls @ 33 mls/hr IV .[id number] ALYSIA; Protocol Stop: 07/10/18 16:29 Last Admin: 06/10/18 17:21 Dose: 1,650 units/hr, 33 mls/hr Documented by: Lidocaine (Lidoderm 5%) 1 patch TD QAM [facility] Stop: 07/02/18 16:29 Last Admin: 06/10/18 10:16 Dose: 1 patch Documented by: Naloxone HCl (Narcan) 0.1 mg IV Q5M PRN; Protocol PRN Reason: Oversedation/Resp Depression Stop: 06/18/18 08:36 Ondansetron HCl (Zofran) 4 mg IV Q6H PRN PRN Reason: Nausea Stop: 07/02/18 15:53 Resident Activity Tracking Resident Involvement: Resident Care Provided Care Provided: Adult Hospital Medicine (1) Multiple fractures of ribs Encounter type: initial encounter Fracture type: closed Laterality: right Qualified Code(s): S22.41XA - Multiple fractures of ribs, right side, initial encounter for closed fracture (2) Abdominal wall contusion Encounter type: initial encounter Qualified Code(s): S30.1XXA - Contusion of abdominal wall, initial encounter (3) Cirrhosis Ascites presence: with ascites Hepatic cirrhosis type: alcoholic cirrhosis Qualified Code(s): K70.31 - Alcoholic cirrhosis of liver with ascites (4) COPD (chronic obstructive pulmonary disease) COPD type: unspecified COPD Qualified Code(s): J44.9 - Chronic obstructive pulmonary disease, unspecified (5) Hypertension Hypertension type: essential hypertension Qualified Code(s): I10 - Essential (primary) hypertension
--- NOTE | 2018-06-10 10:07 | Critical Care Consultation ---
Date of Consultation June 10, 2018 Assessment & Plan (1) Cardiac arrest: Reason Critically Ill: [id number] male with a past medical history including alcoholic liver cirrhosis with steatohepatitis and HCC, hypertension, COPD, A. fib, and congestive heart failure. He presented to the hospital with increasing shortness of breath in the setting of multiple rib fractures and pleural effusion/hemothorax and has been transferred to the ICU for further care following V. fib and arrest with subsequent ROSC. He is currently on mechanical ventilation and pressor support. Neuro - Sedated under intubation. (Propofol 5mcg/kg/min, fentanyl 25mcg/hr) Cardiac - VFib Arrest with ROSC - Unclear etiology. May have degenerated from bradycardia in context of hypoxemia - Currently intubated with norepinephrine drip titrate to MAP >=65, currently at .2mcg/kg/min - Cardiology consulted. Will likely need ICD once clinically stable. Allscripts review shows a hx of syncope and given his recent rib fractures question if his admission is due to cardiac syncopal events. - ECG shows no signs of ichemia Afib - Anticoagulation held in setting of rib fxr with hemothorax - Amiodarone gtt - Metoprolol/Atenolol held following arrest Respiratory - Mechanical ventilation post arrest. ABG post intubation showing AHRF with respiratory alkalosis - iSTAT pH 7.497, PCO2 42, HCO3 32.5, PO2 145. - Currently at 03/12 - R Pneumothorax on rCT 2/2 line placement vs traumatic/CPR - Pending chest tube placement COPD - On [facility] vent as above - Albuterol Neb QID ALYSIA - Budesonide .25mg neb BID GI - Alcoholic Cirrhosis with steatohepatitis and HCC - CP Class B, MELD 11 - Follows with [facility] for HCC, stable - Persistent edema throughout admission tx with spironolactone and lasix - Kennedy and lasix held in context of hypotension - Low sodium diet when not NPO NPO, intubated RENAL/LYTES - Hyponatremia - Fluid restriction. Salt tabs held prior to transfer - Hypertonic saline if needed, continue to follow. Lytes daily. Potassium wnl (4.0) Cr 0.72, at baseline - Schrader in place FOllow I&Os ENDO - Glucose 100-low 200s. Continue to follow, now antiglycemics at this time HEME - Stable H&H, Hgb 9.6 Leukocytosis from 5 to 10.9, suspect 2/2 demargination/stress response ID - - Afebrile, low suspicion for PNA at this time Monitor fever curve INTEGUMENTARY - Chest wall bruising, otherwise no lesions. Pressure ulcer prophylaxsis. LINES/IV ACCESS - PIVs intact. DVT PROPHYLAXIS - Held 2/2 hemothorax Thank you for allowing us to be part of this patient's care. Please refer to []'s documentation for any further recommendations. Supervising Physician Co-Signing Physician Notes patient seen and examined with resident. agree with above except as documented cardiac arrest last night. v fib after bradycardia Constitutional: Comfortable NAD on vent HEENT: normocephalic atraumatic. CV: RRR nl s1,s2 no murmurs rubs or gallops Lungs: crackles bilaterally. no accessory muscle use Abd: soft nontender nondistended. normal bowel sounds Ext: no edema. no cyanosis, no clubbing Skin: warm dry eccymosis to R chest Neuro: prior to sedation moving all extremities appropriately reaching for ET tube. not following commands. moving all extremities Psych: sedataed A/P: Neuro- moving appropriately post arrest. will need to continue to further evaluate mental status. fentanyl and proprofol as needed for comfort CV- cardiac arrest unclear cause. possible bradycardia to v fib s/p defib. amiodarone. remains in shock requiring norepinephrine. titrate as needed. Pulmonary- acute hypoxic respiratory failure in setting of cardiac arrest. unclear if hypoxic event. PE is a possibility. his respiratory status was improving yesterday so unclear why worsening. continue vent support. titrate down fio2 for sat >90%. pneumothorax on R iatrogenic from central line vs after CPR now s/p chest tube. R rib fractures with recurrent pleural effusion likely hepatic hydrothorax ID- no clear evidence of infection Renal-cr ok but UOP poor and did not improve with fluid or flushing schrader. suspect ATN vs prerenal cardiogenic. GI- start tube feeds in AM. famotidine proph Heme- anemia, thrombocytopenia. will start heparin drip without bolus for his .a fib and the possibility that this was a PE Endocrine- BS controlled Dispo- continue ICU care for hemodynamic and ventilatory support I have personally spent 90 minutes of critical care time in the direct management of this patient. This is a life/limb threatening event. This includes time spent evaluating patient, direct bedside care, chart review, placing orders, interpretation of diagnostic studies, discussion with consultants, patient, and/or family members regarding treatment decisions, as well as other required patient management activities. This time is exclusive of all separately billable procedures, and teaching time and separate from and in addition to any other critical care service time. History of Present Illness Reason for Consultation: Cardiac arrest Requesting Physician: Dr. Jerez Attending Physician: Fadi Boyd DO History of Present Illness Santos Newell is a 67-year-old male with a past medical history including alcoholic liver cirrhosis with steatohepatitis and HCC, hypertension, COPD, A. fib, and congestive heart failure. He presented to the hospital with increasing shortness of breath in the setting of multiple rib fractures and pleural effusion/hemothorax and has been transferred to the ICU for further care following V. fib and arrest with subsequent ROSC. He is currently on mechanical ventilation and pressor support. He was admitted on 06/02. Prior to admission he had had antibiotic treatment left lower lobe pneumonia on 05/11/2018 and was seen in the ED again on 05/15 for continued shortness of breath but with a CT chest showing no pneumonia, CHF, PE, or fractures to explain his shortness of breath and right-sided pain. On 05/21 he again presented to the ED and repeat CT showed mid axillary fractures of his right lower ribs with right pleural effusion. 350 cc of bloody fluid was removed by therapeutic thoracentesis, microbiology testing was negative, and he was discharged home on 05/24. He represented on 06/02 with worsening shortness of breath and tachycardia concerning for continued accumulation of fluid and worsening bilateral edema.He underwent right thoracentesis on 06/02 with initial improvement and subsequent placement of a pigtail. 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 Chest tube was placed to waterseal on 06/06 and subsequently removed. He had good response to Lasix diuresis, but continued to have mild nighttime oxygen desaturations and required 2 L of nasal cannula oxygen. On 06/09 repeat chest x-ray showed no change in his pleural effusion and he appeared to be clinically stable. On 06/10 a CODE BLUE was called after he reportedly degraded from A. fib to bradycardia followed by V. fib arrest. ACLS treatment was initiated. He was intubated. ROSC was achieved after approximately 5 minutes and he was transferred to the ICU for further care. Further history limited by endotrachial tube.from pt Allergies Allergy/AdvReac Type Severity Reaction Status Date / Time No Known Allergies Allergy Verified 06/02/18 10:50 Home Medications Home Medications Medication Instructions Recorded Confirmed Type atenolol 100 mg PO BID 01/06/18 06/02/18 History folic acid 7 mg PO QAM 01/06/18 06/02/18 History furosemide 40 mg PO QAM 01/06/18 06/02/18 History potassium chloride 20 mg PO QID 01/06/18 06/02/18 History umeclidinium-vilanterol [Anoro 1 puff INHALATION QAM 01/06/18 06/02/18 History Ellipta] pantoprazole 40 mg PO QAM 05/15/18 06/02/18 History albuterol sulfate 2 puff INH Q6H PRN 05/21/18 06/02/18 History ergocalciferol (vitamin D2) 50,000 unit PO WK 05/21/18 06/02/18 History [Vitamin D2] oxycodone 5 mg PO Q6H PRN 20 Days #40 tab 05/24/18 06/02/18 Rx oxycodone [OxyContin] 10 mg PO Q12 PRN 06/02/18 06/02/18 History prednisone 10 mg PO QAM 06/02/18 06/02/18 History sodium chloride 2 g PO BID 06/02/18 06/02/18 History spironolactone 50 mg PO BID 06/02/18 06/02/18 History Patient History Medical History Hypertension COPD (chronic obstructive pulmonary disease) CHF (congestive heart failure) Ascites (Acute) Asthmatic bronchitis (Acute) Cellulitis of leg Chest pain (Acute) Claudication (Acute) GI bleed (Resolved) Hyponatremia (Acute) Hypoxia (Acute) Rapid atrial fibrillation (Acute) Surgical History History of thoracentesis Family History Other Family history non-contributory Social History Preferred Language: Portuguese Communication Ability: Effective Visual Impairment: No Limitations Hearing Ability: Normal 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 HEENT: Atraumatic, normocephalic. Pulm: Diminished. Breath sounds present bilaterally anteriorly, without rales/wheeze. On vent. Cardiac: RRR, -mrg. Radial pulses intact and symmetrical. Abdominal: Obese, soft. BS present. Large hematoma with mild skin necrosis on R flank at ribs 8-10. Supraumbilical hematoma present. Ext: Skin warm, dry. Results & Data Vital Signs (Past 12 Hours) Vital Signs Temp Pulse Pulse Resp BP BP BP 06/10/18 08:21 83 92/62 L 06/10/18 08:20 87 06/10/18 08:11 86 80/55 L 06/10/18 08:10 91 H 06/10/18 08:01 98 H 90/58 L 06/10/18 08:00 37.3 C 104 H 96 H 14 96/63 L 06/10/18 07:51 91 H 75/53 L 06/10/18 07:50 100 H 06/10/18 07:41 107 H 86/59 L 06/10/18 07:40 110 H 06/10/18 07:38 97 H 26 H 06/10/18 07:35 97 H 24 06/10/18 07:31 105 H 96/63 L 06/10/18 07:30 112 H 06/10/18 07:20 118 H 06/10/18 07:10 124 H 06/10/18 07:06 99 H 93/64 L 06/10/18 07:01 90 98/56 L 06/10/18 07:00 105 H 06/10/18 06:56 94 H 88/64 L 06/10/18 06:51 102 H 99/63 L 06/10/18 06:50 103 H 06/10/18 06:47 104 H 06/10/18 06:46 97 H 94/53 L 06/10/18 06:45 105 H 06/10/18 06:41 107 H 88/55 L 06/10/18 06:40 112 H 06/10/18 06:36 93 H 99/61 L 06/10/18 06:35 111 H 06/10/18 06:31 117 H 87/65 L 06/10/18 06:30 106 H 06/10/18 06:26 91 H 90/62 L 06/10/18 06:25 108 H 06/10/18 06:21 111 H 95/60 L 06/10/18 06:20 109 H 06/10/18 06:15 118 H 06/10/18 06:10 113 H 06/10/18 06:05 113 H 06/10/18 06:01 116 H 86/51 L 06/10/18 06:00 108 H 06/10/18 05:57 116/77 06/10/18 05:55 117 H 06/10/18 05:51 119 H 06/10/18 05:45 102 H 16 06/10/18 04:00 36.6 C 84 20 106/68 06/10/18 01:44 97 H 06/09/18 22:47 36.6 C 83 20 116/72 Pulse Ox 06/10/18 08:21 98 06/10/18 08:20 98 06/10/18 08:11 98 06/10/18 08:10 98 06/10/18 08:01 97 06/10/18 08:00 97 06/10/18 07:51 95 06/10/18 07:50 95 06/10/18 07:41 95 06/10/18 07:40 96 06/10/18 07:38 98 06/10/18 07:35 98 06/10/18 07:31 98 06/10/18 07:30 99 06/10/18 07:20 100 06/10/18 07:10 92 06/10/18 07:06 98 06/10/18 07:01 98 06/10/18 07:00 98 06/10/18 06:56 98 06/10/18 06:51 97 06/10/18 06:50 98 06/10/18 06:47 96 06/10/18 06:46 98 06/10/18 06:45 97 06/10/18 06:41 96 06/10/18 06:40 96 06/10/18 06:36 95 06/10/18 06:35 89 L 06/10/18 06:31 94 06/10/18 06:30 97 06/10/18 06:26 99 06/10/18 06:25 98 06/10/18 06:21 91 06/10/18 06:20 84 L 06/10/18 06:15 100 06/10/18 06:10 99 06/10/18 06:05 100 06/10/18 06:01 99 06/10/18 06:00 100 06/10/18 05:57 100 06/10/18 05:55 100 06/10/18 05:51 06/10/18 05:45 95 06/10/18 04:00 93 06/10/18 01:44 06/09/18 22:47 94 Laboratory Results 06/10/18 06/10/18 06/10/18 Range/Units 06:43 06:15 05:41 WBC (4.8-10.8) K/uL RBC (4.7-6.1) M/uL Hgb (14.0-18.0) g/dL Hct (42-52) % MCV (80-100) fL MCH (25-34) pg MCHC (32-36) g/dL RDW Std Deviation (36.4-46.3) fL RDW Coeff of Zack (11.5-14.5) % Plt Count (130-400) K/uL MPV (7.4-10.4) fL Immature Gran % (Auto) % Neut % (Auto) % Lymph % (Auto) % [place] % (Auto) % Eos % (Auto) % Baso % (Auto) % Immature Gran # (Auto) (0.00-0.02) K/uL Neut # (Auto) (1.4-6.5) K/uL Lymph # (Auto) (1.2-3.4) K/uL [place] # (Auto) (0.11-0.59) K/uL Eos # (Auto) (0-0.5) K/uL Baso # (Auto) (0-0.2) K/uL Absolute Nucleated RBC (0-0) K/uL Nucleated RBC % (auto) % Blood Smear Review Echinocytes Sample Site R Radial POC pH 7.29 L (7.35-7.45) POC pCO2 64 H (35-46) mmHg POC pO2 193 H (80-95) mmHg POC HCO3 31 H (19-24) sabrina/L POC Total CO2 33 H (24-31) mEq/l POC Base Excess 4.0 H (-9-1.8) sabrina/L POC ABG O2 Sat 100.0 H (90-95) % Roderick Test Pass O2 Delivery Device Ventilator POC O2 Rate 14 Minute Ventilation 7 POC FiO2 100 % Tidal Volume 500 PEEP 10 Digoxin 0.6 L (0.8-2.0) ng/ml Blood Type A Positive Antibody Screen NEGATIVE Crossmatch See Detail 06/10/18 Range/Units 05:40 WBC 10.92 H (4.8-10.8) K/uL RBC 2.90 L (4.7-6.1) M/uL Hgb 9.6 L (14.0-18.0) g/dL Hct 29.5 L (42-52) % MCV 101.7 H (80-100) fL MCH 33.1 (25-34) pg MCHC 32.5 (32-36) g/dL RDW Std Deviation 67.4 H (36.4-46.3) fL RDW Coeff of Zack 18.2 H (11.5-14.5) % Plt Count 130 (130-400) K/uL MPV 9.6 (7.4-10.4) fL Immature Gran % (Auto) 1.3 % Neut % (Auto) 33.7 % Lymph % (Auto) 48.0 % [place] % (Auto) 12.5 % Eos % (Auto) 4.1 % Baso % (Auto) 0.4 % Immature Gran # (Auto) 0.14 H (0.00-0.02) K/uL Neut # (Auto) 3.69 (1.4-6.5) K/uL Lymph # (Auto) 5.24 H (1.2-3.4) K/uL [place] # (Auto) 1.36 H (0.11-0.59) K/uL Eos # (Auto) 0.45 (0-0.5) K/uL Baso # (Auto) 0.04 (0-0.2) K/uL Absolute Nucleated RBC 0.08 H (0-0) K/uL Nucleated RBC % (auto) 0.7 % Blood Smear Review Echinocytes 1+ Sample Site POC pH (7.35-7.45) POC pCO2 (35-46) mmHg POC pO2 (80-95) mmHg POC HCO3 (19-24) sabrina/L POC Total CO2 (24-31) mEq/l POC Base Excess (-9-1.8) sabrina/L POC ABG O2 Sat (90-95) % Roderick Test O2 Delivery Device POC O2 Rate Minute Ventilation POC FiO2 % Tidal Volume PEEP Digoxin (0.8-2.0) ng/ml Blood Type Antibody Screen Crossmatch Medications Administered Current Inpatient Medications Albuterol (Duoneb) 3 ml NEB QIDR [facility] Stop: 07/02/18 15:59 Last Admin: 06/10/18 07:35 Dose: 3 ml Documented by: Budesonide (Pulmicort Respules) 0.25 mg NEB BIDR [facility] Stop: 07/09/18 19:59 Last Admin: 06/10/18 07:35 Dose: 0.25 mg Documented by: Budesonide/Formoterol Fumarate (Symbicort 160mcg/4.5mcg) 2 puffs INH BID [facility] Stop: 07/05/18 08:59 Last Admin: 06/09/18 20:16 Dose: 2 puffs Documented by: Famotidine (Pepcid) 20 mg OG QAM [facility] Stop: 07/10/18 08:59 Last Admin: 06/10/18 08:57 Dose: 20 mg Documented by: Fentanyl Citrate (Fentanyl Citrate) 25 mcg IV ONE PRN PRN Reason: Pain Not Controlled by Drip Stop: 06/24/18 08:16 Heparin Sodium (Porcine) (Heparin Sodium (Porcine)) 5,000 units SQ Q8 [facility] Stop: 07/10/18 13:59 Sodium Chloride (Nss) 250 mls @ 15 mls/hr IV .[id number] PRN PRN Reason: For Transfusion Stop: 07/06/18 15:28 Sodium Chloride (Nss) 250 mls @ 15 mls/hr IV .[id number] PRN PRN Reason: For Transfusion Stop: 07/10/18 05:43 Norepinephrine Bitartrate 8 mg (/ Dextrose) 508 mls @ 24.8 mls/hr IV .[id number] PRN; Protocol PRN Reason: TITRATE Stop: 07/10/18 05:57 Amiodarone HCl/Dextrose (Nexterone / D5w) 360 mg in 200 mls @ 16.667 mls/hr IV .Q12H [facility] Stop: 07/10/18 06:59 Last Admin: 06/10/18 07:21 Dose: 0.5 mg/min, 16.7 mls/hr Documented by: Propofol (Diprivan) 1,000 mg in 100 mls @ 3.981 mls/hr IV .Q24H [facility]; Protocol Stop: 06/13/18 07:11 Last Admin: 06/10/18 07:20 Dose: 5 mcg/kg/min, 4 mls/hr Documented by: Fentanyl Citrate (Fentanyl Drip) 1,250 mcg in 250 mls @ 5 mls/hr IV .Q24H [facility]; Protocol Stop: 06/24/18 08:16 Last Admin: 06/10/18 08:58 Dose: 25 mcg/hr, 5 mls/hr Documented by: Lidocaine (Lidoderm 5%) 1 patch TD QAM [facility] Stop: 07/02/18 16:29 Last Admin: 06/09/18 09:20 Dose: 1 patch Documented by: Naloxone HCl (Narcan) 0.1 mg IV Q5M PRN; Protocol PRN Reason: Oversedation/Resp Depression Stop: 06/18/18 08:36 Ondansetron HCl (Zofran) 4 mg IV Q6H PRN PRN Reason: Nausea Stop: 07/02/18 15:53 Resident Activity Tracking Resident Involvement: Resident Care Provided Care Provided: Adult Hospital Medicine
[2018-06-10 10:16] LABS: iSTAT Allen Test Pass; iSTAT Arterial Blood Gas HCO3 33 meg/L (19-24); iSTAT Arterial Blood Gas pCO2 42 mmHg (35-46); iSTAT Carbon Dioxide 34 mEq/l (24-31); iSTAT FiO2 100 %; iSTAT Site L Radial
[2018-06-10] MEDS: NOREPINEPHRINE (Adult) 8 MG in DEXTROSE 5% 500 ML IV PRN ×3 (10:16→19:08)
[2018-06-10] MEDS: LIDOCAINE 5% 1 PATCH TD SCH (10:16)
--- NOTE | 2018-06-10 10:29 | XRay Report ---
XR chest 1V portable CLINICAL HISTORY: confirm central line placement tube position COMPARISON STUDY: 06/10/2018 FINDINGS: Endotracheal tube is 3 cm above the gonzalo. Central catheter has been place in superior rob a cava. Interval development of a right-sided pneumothorax estimated 30% in terms of overall volume. Maximum pleural separation is 3 cm. The displaced fractures lateral right hemithorax persists. Parenchymal findings bilaterally are uncha nged. IMPRESSION: 1. Placement of central line in superior vena cava. 2. Interval development of a 30% right-sided pneumothorax with a maximum pleural separation of 3 cm. The above report was generated using voice recognition software. It may contain grammatical, syntax or spelling errors. Electronically signed by: Samson Carlton M.D. 06/10/2018 10:28 AM
[2018-06-10] MEDS ORDERED: SODIUM CHLORIDE 0.9% 1000ML 1,000 ML IV ONE (12:21)
[2018-06-10] MEDS ORDERED: LIDOCAINE HCL 1% 20 ML VIAL ONE (13:05)
--- NOTE | 2018-06-10 13:58 | XRay Report ---
XR chest 1V portable HISTORY: pneumothorax COMPARISON: Chest 06/10/2018. FINDINGS: Double placement of a right-sided chest tube which terminates in the right upper lung zone. Small right pneumothorax is decreased in size. This demonstrates a maximum pleural gap of 1.8 cm. Ri ght jugular central venous catheter terminates at the expected location of the SVC. Nasogastric tube terminates below the diaphragm. The tip is not included on this study. Endotracheal tube terminates 2 .1 cm from the gonzalo. The heart remains mildly enlarged. There is mild pulmonary edema and trace derek ateral pleural effusions. Right rib fractures are again noted. Hazy bibasilar densities persist. IMPRESSION: 1. Decrease in size in the small right pneumothorax status post right chest tube placement. 2. Satisfactory support line placement. 3. Pulmonary edema, trace bilateral pleural effusions, and bibasilar densities persist. Electronically signed by: Alek Roblero M.D. 06/10/2018 1:57 PM
[2018-06-10] MEDS ORDERED: HEPARIN SOD 5,000 UNIT/0.5 ML VIAL SQ SCH (14:00)
--- NOTE | 2018-06-10 14:09 | Progress Note ---
DATE: 06/10/2018 The patient suffered an arrest last night. He apparently had ventricular fibrillation. At any rate, a central line was placed and he suffered a pneumothorax on his x-ray. He is on the ventilator now. I was asked to see him about his chest tube. The patient really did not appear to have nearly the pleural effusion he has had in the past and my hope is that we are not dealing with a hepatic hydrothorax; however, I do agree that a chest tube is needed. MTDD
--- NOTE | 2018-06-10 14:18 | Operative Report ---
DATE OF OPERATION: 06/10/2018 PREOPERATIVE DIAGNOSIS: Iatrogenic right pneumothorax. POSTOPERATIVE DIAGNOSIS: Iatrogenic right pneumothorax. PROCEDURE: Insertion of right 24-Namibian chest tube. SURGEON: Patel Slater MD. CORPORATION SECRETARY: Kwame Blair MD. ANESTHESIA: Local with sedation. SPECIFICS OF PROCEDURE: Mr. Zarco is a morbidly obese 67-year-old male who has multiple issues. In any event, he suffered an iatrogenic pneumothorax and needs a chest tube. We inserted a 24-Namibian chest tube without difficulty in the right anterior chest just lateral to the breast an interspace or two below. He tolerated it well. Chest x-ray showed good placement of the tube, but he still has a small pneumothorax. We did drain out about 600 mL of serous fluid. PROCEDURE DESCRIPTION: The patient in the supine position, he was given fentanyl and propofol. He was on a drip for both, but had boluses of the fentanyl and then had his right arm raised. Left anterior chest was prepped and draped in the usual sterile fashion. After appropriate timeout was called, a 25-gauge needle with 1% Xylocaine was used to anesthetize the skin and subcutaneous tissues. A small skin incision was made just large enough for the 24-Namibian chest tube. A large bore needle then went through this to the interspace above and anesthetized the deeper subcutaneous tissues and muscle, and we got air back quite quickly. A guidewire was inserted through the needle and the needle removed. A dilator was slid over the guidewire and then removed and then the 24-Namibian chest tube with an obturator was placed over the guidewire into the chest about 20 cm and sut[address] in place. He had a small air leak and drained about 600 mL of a bloody serous fluid. He tolerated it well. Chest x-ray showed good placement. I attest to the content of the Intraoperative Record and any orders documented therein. Any exception s are noted below.
[2018-06-10] MEDS ORDERED: Heparin IV Standard *NO* Bolus ONE (16:23)
[2018-06-10 17:06] LABS: INR 1.4 (0.9-1.1); Partial Thromboplastin Time 26.3 Seconds (21.0-31.0); Prothrombin Time 14.4 Seconds (9.0-12.0)
[2018-06-10] MEDS: Heparin Adult STANDARD Wt-Based Dextrose 5% 25,000 units/500 mL IV SCH (17:21)
[2018-06-10 23:34] LABS: Partial Thromboplastin Ratio > 5.1
[2018-06-10 23:36] LABS: Partial Thromboplastin Time > 139.0 Seconds (21.0-31.0)
[2018-06-11] MEDS: NOREPINEPHRINE (Adult) 8 MG in DEXTROSE 5% 500 ML IV PRN ×3 (00:19→09:10)
[2018-06-11] MEDS: fentaNYL DRIP 1,250 MCG/250 ML BAG IV SCH (00:19)
[2018-06-11 00:56] LABS: Partial Thromboplastin Ratio 2.8
[2018-06-11 01:02] LABS: Partial Thromboplastin Time 76.9 Seconds (21.0-31.0)
[2018-06-11] MEDS: AMIODARONE / D5W 360 MG/200 ML BAG IV SCH ×2 (03:36→16:06)
[2018-06-11 05:54] LABS: iSTAT Allen Test Pass; iSTAT Arterial Blood Gas HCO3 29 meg/L (19-24); iSTAT Arterial Blood Gas pCO2 44 mmHg (35-46); iSTAT Arterial Blood Gas pH 7.42 (7.35-7.45); iSTAT Carbon Dioxide 30 mEq/l (24-31); iSTAT Site L Radial
[2018-06-11 06:49] LABS: Hematocrit (blood only) 25.9 % (42-52); Hemoglobin 9.1 g/dL (14.0-18.0); Mean Corpuscular Hgb Conc 35.1 g/dL (32-36); Mean Corpuscular Volume 93.8 fL (80-100); Mean Platelet Volume 9.1 fL (7.4-10.4); Platelet Count 213 K/uL (130-400); RDW Coefficient of Variation 17.9 % (11.5-14.5); RDW Standard Deviation 60.8 fL (36.4-46.3); Red Blood Count 2.76 M/uL (4.7-6.1); White Blood Count 19.81 K/uL (4.8-10.8)
[2018-06-11 06:50] LABS: Basophils # (auto) 0.03 K/uL (0-0.2); Basophils % (auto) 0.2 %; Eosinophils # (auto) 0.43 K/uL (0-0.5); Eosinophils % (auto) 2.2 %; Immature Granulocytes # (auto) 0.08 K/uL (0.00-0.02); Immature Granulocytes % (auto) 0.4 %; Lymphocytes # (auto) 1.59 K/uL (1.2-3.4); Monocytes # (auto) 2.82 K/uL (0.11-0.59); Monocytes % (auto) 14.2 %; Neutrophils # (auto) 14.86 K/uL (1.4-6.5)
--- NOTE | 2018-06-11 06:56 | XRay Report ---
XR chest 1V portable CLINICAL HISTORY: respriatory failure, pneumothorax COMPARISON STUDY: 06/10/2018 FINDINGS: Endotracheal tube 3 cm above the gonzalo. Mild stable cardiomegaly. Improving pulmonary harley a. Right-sided pneumothorax is somewhat improved with a maximum pleural separation of 0.6 cm. This is di minished from the prior study 1.7 cm. Right-sided chest tube remains in satisfactory position. The di splaced right rib fractures are again noted. IMPRESSION: Improved exam. Minimal residual right apical pneumothorax. Improving pulmonary edema. The above report was generated using voice recognition software. It may contain grammatical, syntax or spelling errors. Electronically signed by: Samson Carlton M.D. 06/11/2018 6:54 AM
[2018-06-11 07:05] LABS: Albumin Level 2.5 gm/dl (3.4-5.0); BUN Creatinine Ratio 9.1 (10-20); Bilirubin Direct 1.4 mg/dl (0-0.2); Bilirubin,Total 2.6 mg/dl (0.2-1); Calcium 7.5 mg/dl (8.5-10.1); Creatinine Clr Calc Pharmacy 36.7 ml/min; Est GFR (African American) 29.1; Est GFR (Non-African American) 25.1; Phosphorus 4.6 mg/dl (2.5-4.9); Total Protein 5.1 gm/dl (6.4-8.2)
--- NOTE | 2018-06-11 07:26 | Family Medicine Progress Note ---
Date of Service June 11, 2018 Assessment & Plan (1) Admitted to intensive care unit: (#) Cardiac Arrest VFIB Patient was transferred to the ICU status post cardiac arrest -Ventricular fibrillation requiring cardioversion to break pathological rhythm -Because of cardiac arrest is not entirely clear definitely some ventricular fibrillation question whether component of obstructive sleep apnea and/or obesity hypoventilation syndrome leading haptic episode which resulted in the arrhythmia. -Wean norepinephrine as tolerated -Successful his extubation, patient satting well on nasal cannula, alert and oriented x4 -Patient reporting significant pain, increased fentanyl, Dilaudid AGRISCIENCE TEACHER pump per i ntensivist team -Holding atenolol and metoprolol status post arrest -Cardiology consulted following recommendations -Primary arrhythmia will require pacemaker vs defibrillator possibly this weekend -cont Amiodarone -Keep external patches hooked up in case external defibrillation is required -Question whether recent injuries and fractures were due to syncopal episode secondary to arrhythmia -Permanent atrial fibrillation -Consider work-up for PE and possible stroke -Not likely due to ACS -Echo 06/10 -Normal left ventricular size with moderately reduced systolic function, EF 35-40%. Akinesis of the mid to distal inferoseptum mid anterior septum mid to distal inferior wall segments. Hypokinesis of the basal anterior septum anterior wall, mid to distal anterior lateral wall, and mid to inferior wall segments. LVH. No thrombus -Compared to prior study left ventricular systolic function is now reduced and wall motion abnormalities are present (#) Pleural effusion, right: Patient with recurrent right sided pleural effusion, s/p thoracentesis on 05/22 with 350mL bloody fluid removed. Possibly traumatic in setting of multiple rib fractures. Patient with significant pain, tachypnea, requiring minimal O2 to maintain saturations. Patient also with significant anasarca h/o cirrhosis and CHF, recurrence of hemothorax vs other fluid accumulation. Overnight of 06/03-06/04 patient had increasing oxygen requirements and tachycardia unresponsive to Lopressor. Chest x-ray was obtained showing a worsening pleural effusion Dr. Velazco was contacted and recommended transfer to the ICU. 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 This likely explains the diffuse ecchymosis on his right side. This injury likely happened during prior presentation and fluid accumulation tamponaded not at the vessel. Upon thoracocentesis during this hospital admission the tamponade was removed and the vessel allowed to bleed. A chest tube was placed and maintained for 2 days, subsequently removed. Patient has been doing well since some drainage and drainage from the chest tube site, now has resolved. Patient was monitored on telemetry for for 2 days unfortunately yesterday evening he had a CODE BLUE resulting in transfer to the ICU and requiring cardioversion to stop ventricular tachycardia. During chest compressions it appears as if he sustained a pneumothorax. Chest tube was placed by Dr. Slater following ICU recommendations. -Extubated successfully this morning satting well on nasal cannula -Had ABG demonstrating acute hypoxic respiratory failure with respiratory alkalosis. -Chest tube placed by Dr. Slater for pneumothorax -Chest tube management per counterperson team -chest x-ray this morning 06/11 shows an pleural effusion and pneumothorax (#) Multiple fractures of ribs: Patient with fractures of ribs 7-10 mid-axillary line, diagnosed by CT during last hospital admission. Possibly secondary to severe coughing in setting of recent PNA/bronchitis. Significant pain. unclear etiology see above. May have sustained further fractures during CPR -Consult pain management following recs currently on fentanyl and AGRISCIENCE TEACHER pump when able DC and resume regimen below -resume Oxycontin 10mg po BID -resume Oxycodone 5mg po q 6 hours -morphine to 2 mg IV every 2 hours as needed -Lidoderm patch -Bowel regimen MiraLAX scheduled 3 times daily, Colace prn -Incentive spirometry q2h while awake (#) Cirrhosis: Patient with history of liver cirrhosis thought to be secondary to EtOH abuse. Child Class B, MELD score =11. MRI performed on 01/11/18 with two lesions suspicious for HCC. AFP level on 04/29/18 was 22.8 (relatively stable, was 27.9 on 07/23/17 and 18.9 on 01/18/18). Patient reports that he follows with Dr. Petty for this and has been doing well. Patient with anasarca today. Patient has been on multiple courses of Prednisone over the past month which is most likely contributing to fluid retention. Is not encephalopathic, does not appear to have significant ascites, liver labs are essentially unchanged from prior. Do not suspect decompensated cirrhosis. Weight is 120kg, was 136kg on discharge but patient reports appx 15 pound gain over the last 2 weeks admission. -GI signed off -UOP decreased -Holding spironolactone or Lasix secondary to hypotension -likely ATN 2/2 to poor perfusion and hypotension -Low Na/CC diet -Daily weights 132.7->131.2->130.2->133.1 -Daily BMP (#) COPD (chronic obstructive pulmonary disease): Patient with COPD, +diffuse wheezing noted on exam. Previously satting well on room air, now mechanically ventilated plan for extubation today. -Supplemental O2 PRN to maintain sats 92% -DuoNebs q 6 hours -Albuterol q 2 hours PRN -Will not continue steroids at this time (#) Hypertension: Blood pressure well controlled was well controlled prior to arrest. Now hypotensive on norepinephrine. -Wean Ne as tolerated per ICU team -holding metoprolol and atenolol -Diuretics as above -Continue to monitor (#) Rapid atrial fibrillation: Patient with history of AF . Intermittent tachycardia currently pulse is 102. Tachycardia likely secondary to pain and poor oxygenation secondary to pleural effusion. Patient was previously rate controlled on atenolol twice daily and metoprolol succinate 50 mg p.o. daily. Both are being held secondary to ICU status see above -Holding anticoagulation -ICU status -Amiodarone GGT (#) Hyponatremia: Kt=756. Throughout the hospitalization and worked on control of hyponatremia. Patient was maintaining adequate salt levels with fluid restriction and diuresis prior to arrest. Hopeful we can regain good salt control status post extubation -DC salt tablets -Diuresis as above -Fluid restriction 2L -Daily BMP -Completed albumin infusion -If sodium continues downtrending can consider hypertonic saline and/or resumption of salt tabs (#) Abdominal wall contusion: H/H stable. Patient with significant abdominal pain -Pain control as above PT/OT recommend acute rehab F/E/N -low-salt diet Ppx -currently on hold Code -Full per discussion with patient Dispo -ICU Supervising Physician Co-Signing Physician Notes I personally examined the patient and verified all james points of history and exam, discussed case, and agree with decision making with Dr Ferrari. Extubated. Feeling okay. Notes that the AGRISCIENCE TEACHER is a lifesaver. Case discussed with thoracic surgery and ICU, input greatly appreciated. Vitals noted, awake and alert, easily fatigued but no distress. HEENT normocephalic atraumatic mucous members moist. Breathing is unlabored no accessory muscle use good effort. Skin shows no rashes no pallor. No focal neuro deficits. Cardiac arrestappears to have been a predominantly arrhythmogenic arrest. Continue antiarrhythmics and supportive care. Highly likely to need ICD and/or pacer. Appreciate cardiology input. Stable for now Hypotensionmanage as per ICU. Improving Respiratory failureresolved and extubated Acute renal failuremost likely ATN. Continue supportive care, he is perfusing now, continue to follow. No emergent indications for dialysis Right-sided effusion/pneumothoraxchest tube management Anemiacontinue to follow Otherwise as above Subjective Patient lying in bed this morning, status post extubation, reporting significant pain in his right side. Patient's at bedside, she is very pleased that he is up talking and awake. Overall very pleased with the outcome of this patient's progress given that is this is a second ICU admission hospitalization. I am hopeful the patient will continue to recover, kidney function will resume, and we will be able to put a pacemaker/defibrillator and to prevent this recurrence of severe arrhythmias. Acute concerns are present related to pain, talked with the ICU team they will be ordering him a AGRISCIENCE TEACHER pump. Answered all questions. Physical Exam Physical Exam: General: Obese gentleman status post recent extubation endorsing significant pain in his ribs HEENT: Atraumatic, normocephalic. Pulm: Not moving great air, crackles on right side, wheezes Cardiac: Irregularly irregular rhythm rate controlled, -mrg. Normal S1-S2 Abdominal: Obese, soft. BS present. Large hematoma with mild skin necrosis on R flank at ribs 8-10. Supraumbilical hematoma present. Ext: Skin warm, dry. Pitting edema in lower extremities bilaterally. 3+ to mid thigh Results & Data Vital Signs (Past 12 Hours) Vital Signs Temp Pulse Pulse Resp BP Pulse Ox 06/11/18 06:00 79 105/68 98 06/11/18 05:25 81 14 97 06/11/18 05:00 91 H 104/71 94 06/11/18 04:00 37.3 C 83 95/65 L 06/11/18 03:30 75 100/63 98 06/11/18 03:00 76 97/61 L 98 06/11/18 02:10 72 13 100 06/11/18 02:00 36.7 C 77 97/58 L 98 06/11/18 01:00 85 94/60 L 96 06/11/18 00:31 78 103/64 96 06/11/18 00:30 82 96 06/11/18 00:16 82 83/57 L 95 06/11/18 00:01 79 99/68 L 96 06/10/18 23:30 67 12 93/62 L 100 06/10/18 23:00 70 100/54 L 99 06/10/18 22:00 68 94/57 L 100 06/10/18 21:30 71 95/59 L 99 06/10/18 21:00 67 88/54 L 99 06/10/18 20:16 75 91/55 L 99 06/10/18 20:00 74 88/54 L 99 06/10/18 19:53 70 12 98 06/10/18 19:46 72 94/52 L 99 06/10/18 19:30 66 84/53 L 99 06/10/18 19:16 67 97/53 L 100 Laboratory Results 06/11/18 06/11/18 06/11/18 Range/Units 09:03 07:47 06:03 WBC (4.8-10.8) K/uL RBC (4.7-6.1) M/uL Hgb (14.0-18.0) g/dL Hct (42-52) % MCV (80-100) fL MCH (25-34) pg MCHC (32-36) g/dL RDW Std Deviation (36.4-46.3) fL RDW Coeff of Zack (11.5-14.5) % Plt Count (130-400) K/uL MPV (7.4-10.4) fL Immature Gran % (Auto) % Neut % (Auto) % Lymph % (Auto) % [place] % (Auto) % Eos % (Auto) % Baso % (Auto) % Immature Gran # (Auto) (0.00-0.02) K/uL Neut # (Auto) (1.4-6.5) K/uL Lymph # (Auto) (1.2-3.4) K/uL [place] # (Auto) (0.11-0.59) K/uL Eos # (Auto) (0-0.5) K/uL Baso # (Auto) (0-0.2) K/uL PT (9.0-12.0) Seconds INR (0.9-1.1) APTT 123.3 H* (21.0-31.0) Seconds PTT Ratio 4.5 Sample Site POC pH (7.35-7.45) POC pCO2 (35-46) mmHg POC pO2 (80-95) mmHg POC HCO3 (19-24) sabrina/L POC Total CO2 (24-31) mEq/l POC Base Excess (-9-1.8) sabrina/L POC ABG O2 Sat (90-95) % Roderick Test O2 Delivery Device Sodium 125 L (136-145) mmol/L Potassium 4.0 (3.5-5.1) mmol/L Chloride 86 L (98-107) mmol/L Carbon Dioxide 30 (21-32) mmol/L Anion Gap 9.0 (3-11) BUN 23 H D (7-18) mg/dl Creatinine 2.53 H D (0.6-1.4) mg/dl Est Cr Clr Drug Dosing 36.7 ml/min Est GFR ( Amer) 29.1 Est GFR (Non-Af Amer) 25.1 BUN/Creatinine Ratio 9.1 L (10-20) Glucose 158 H (70-99) mg/dl POC Glucose (70-99) POC Glucose (other) (70-99) mg/dl Calcium 7.5 L (8.5-10.1) mg/dl Phosphorus 4.6 (2.5-4.9) mg/dl Magnesium 2.0 (1.8-2.4) mg/dl Total Bilirubin 2.6 H (0.2-1) mg/dl Direct Bilirubin 1.4 H (0-0.2) mg/dl AST 101 H (15-37) U/L ALT 51 (12-78) U/L Alkaline Phosphatase 133 H (45-117) U/L Troponin I 1.080 H* (0-0.045) ng/ml C-Reactive Protein 11.50 H (0-0.29) mg/dl Total Protein 5.1 L (6.4-8.2) gm/dl Albumin 2.5 L (3.4-5.0) gm/dl Nasal Screen MRSA (PCR) (Negative) 06/11/18 06/11/18 06/11/18 Range/Units 06:03 05:41 00:26 WBC 19.81 H (4.8-10.8) K/uL RBC 2.76 L (4.7-6.1) M/uL Hgb 9.1 L (14.0-18.0) g/dL Hct 25.9 L (42-52) % MCV 93.8 D (80-100) fL MCH 33.0 (25-34) pg MCHC 35.1 (32-36) g/dL RDW Std Deviation 60.8 H (36.4-46.3) fL RDW Coeff of Zack 17.9 H (11.5-14.5) % Plt Count 213 D (130-400) K/uL MPV 9.1 (7.4-10.4) fL Immature Gran % (Auto) 0.4 % Neut % (Auto) 75.0 % Lymph % (Auto) 8.0 % [place] % (Auto) 14.2 % Eos % (Auto) 2.2 % Baso % (Auto) 0.2 % Immature Gran # (Auto) 0.08 H (0.00-0.02) K/uL Neut # (Auto) 14.86 H (1.4-6.5) K/uL Lymph # (Auto) 1.59 (1.2-3.4) K/uL [place] # (Auto) 2.82 H (0.11-0.59) K/uL Eos # (Auto) 0.43 (0-0.5) K/uL Baso # (Auto) 0.03 (0-0.2) K/uL PT (9.0-12.0) Seconds INR (0.9-1.1) APTT 76.9 H* (21.0-31.0) Seconds PTT Ratio 2.8 Sample Site L Radial POC pH 7.42 (7.35-7.45) POC pCO2 44 (35-46) mmHg POC pO2 106 H (80-95) mmHg POC HCO3 29 H (19-24) sabrina/L POC Total CO2 30 (24-31) mEq/l POC Base Excess 4.0 H (-9-1.8) sabrina/L POC ABG O2 Sat 98.0 H (90-95) % Roderick Test Pass O2 Delivery Device Ventilator Sodium (136-145) mmol/L Potassium (3.5-5.1) mmol/L Chloride (98-107) mmol/L Carbon Dioxide (21-32) mmol/L Anion Gap (3-11) BUN (7-18) mg/dl Creatinine (0.6-1.4) mg/dl Est Cr Clr Drug Dosing ml/min Est GFR ( Amer) Est GFR (Non-Af Amer) BUN/Creatinine Ratio (10-20) Glucose (70-99) mg/dl POC Glucose (70-99) POC Glucose (other) (70-99) mg/dl Calcium (8.5-10.1) mg/dl Phosphorus (2.5-4.9) mg/dl Magnesium (1.8-2.4) mg/dl Total Bilirubin (0.2-1) mg/dl Direct Bilirubin (0-0.2) mg/dl AST (15-37) U/L ALT (12-78) U/L Alkaline Phosphatase (45-117) U/L Troponin I (0-0.045) ng/ml C-Reactive Protein (0-0.29) mg/dl Total Protein (6.4-8.2) gm/dl Albumin (3.4-5.0) gm/dl Nasal Screen MRSA (PCR) (Negative) 06/10/18 06/10/18 06/10/18 Range/Units 22:56 16:44 16:14 WBC (4.8-10.8) K/uL RBC (4.7-6.1) M/uL Hgb (14.0-18.0) g/dL Hct (42-52) % MCV (80-100) fL MCH (25-34) pg MCHC (32-36) g/dL RDW Std Deviation (36.4-46.3) fL RDW Coeff of Zack (11.5-14.5) % Plt Count (130-400) K/uL MPV (7.4-10.4) fL Immature Gran % (Auto) % Neut % (Auto) % Lymph % (Auto) % [place] % (Auto) % Eos % (Auto) % Baso % (Auto) % Immature Gran # (Auto) (0.00-0.02) K/uL Neut # (Auto) (1.4-6.5) K/uL Lymph # (Auto) (1.2-3.4) K/uL [place] # (Auto) (0.11-0.59) K/uL Eos # (Auto) (0-0.5) K/uL Baso # (Auto) (0-0.2) K/uL PT 14.4 H (9.0-12.0) Seconds INR 1.4 H (0.9-1.1) APTT > 139.0 H* 26.3 (21.0-31.0) Seconds PTT Ratio > 5.1 1.0 Sample Site POC pH (7.35-7.45) POC pCO2 (35-46) mmHg POC pO2 (80-95) mmHg POC HCO3 (19-24) sabrina/L POC Total CO2 (24-31) mEq/l POC Base Excess (-9-1.8) sabrina/L POC ABG O2 Sat (90-95) % Roderick Test O2 Delivery Device Sodium (136-145) mmol/L Potassium (3.5-5.1) mmol/L Chloride (98-107) mmol/L Carbon Dioxide (21-32) mmol/L Anion Gap (3-11) BUN (7-18) mg/dl Creatinine (0.6-1.4) mg/dl Est Cr Clr Drug Dosing ml/min Est GFR ( Amer) Est GFR (Non-Af Amer) BUN/Creatinine Ratio (10-20) Glucose (70-99) mg/dl POC Glucose 159 H (70-99) POC Glucose (other) (70-99) mg/dl Calcium (8.5-10.1) mg/dl Phosphorus (2.5-4.9) mg/dl Magnesium (1.8-2.4) mg/dl Total Bilirubin (0.2-1) mg/dl Direct Bilirubin (0-0.2) mg/dl AST (15-37) U/L ALT (12-78) U/L Alkaline Phosphatase (45-117) U/L Troponin I (0-0.045) ng/ml C-Reactive Protein (0-0.29) mg/dl Total Protein (6.4-8.2) gm/dl Albumin (3.4-5.0) gm/dl Nasal Screen MRSA (PCR) (Negative) 06/10/18 06/10/18 Range/Units 11:31 06:00 WBC (4.8-10.8) K/uL RBC (4.7-6.1) M/uL Hgb (14.0-18.0) g/dL Hct (42-52) % MCV (80-100) fL MCH (25-34) pg MCHC (32-36) g/dL RDW Std Deviation (36.4-46.3) fL RDW Coeff of Zack (11.5-14.5) % Plt Count (130-400) K/uL MPV (7.4-10.4) fL Immature Gran % (Auto) % Neut % (Auto) % Lymph % (Auto) % [place] % (Auto) % Eos % (Auto) % Baso % (Auto) % Immature Gran # (Auto) (0.00-0.02) K/uL Neut # (Auto) (1.4-6.5) K/uL Lymph # (Auto) (1.2-3.4) K/uL [place] # (Auto) (0.11-0.59) K/uL Eos # (Auto) (0-0.5) K/uL Baso # (Auto) (0-0.2) K/uL PT (9.0-12.0) Seconds INR (0.9-1.1) APTT (21.0-31.0) Seconds PTT Ratio Sample Site POC pH (7.35-7.45) POC pCO2 (35-46) mmHg POC pO2 (80-95) mmHg POC HCO3 (19-24) sabrina/L POC Total CO2 (24-31) mEq/l POC Base Excess (-9-1.8) sabrina/L POC ABG O2 Sat (90-95) % Roderick Test O2 Delivery Device Sodium (136-145) mmol/L Potassium (3.5-5.1) mmol/L Chloride (98-107) mmol/L Carbon Dioxide (21-32) mmol/L Anion Gap (3-11) BUN (7-18) mg/dl Creatinine (0.6-1.4) mg/dl Est Cr Clr Drug Dosing ml/min Est GFR ( Amer) Est GFR (Non-Af Amer) BUN/Creatinine Ratio (10-20) Glucose (70-99) mg/dl POC Glucose (70-99) POC Glucose (other) 175 H (70-99) mg/dl Calcium (8.5-10.1) mg/dl Phosphorus (2.5-4.9) mg/dl Magnesium (1.8-2.4) mg/dl Total Bilirubin (0.2-1) mg/dl Direct Bilirubin (0-0.2) mg/dl AST (15-37) U/L ALT (12-78) U/L Alkaline Phosphatase (45-117) U/L Troponin I (0-0.045) ng/ml C-Reactive Protein (0-0.29) mg/dl Total Protein (6.4-8.2) gm/dl Albumin (3.4-5.0) gm/dl Nasal Screen MRSA (PCR) Negative (Negative) Medications Administered Current Inpatient Medications Albuterol (Duoneb) 3 ml NEB QIDR [facility] Stop: 07/02/18 15:59 Last Admin: 06/11/18 09:33 Dose: 3 ml Documented by: Budesonide (Pulmicort Respules) 0.25 mg NEB BIDR [facility] Stop: 07/09/18 19:59 Last Admin: 06/11/18 09:33 Dose: 0.25 mg Documented by: Budesonide/Formoterol Fumarate (Symbicort 160mcg/4.5mcg) 2 puffs INH BID [facility] Stop: 07/05/18 08:59 Last Admin: 06/09/18 20:16 Dose: 2 puffs Documented by: Famotidine (Pepcid) 20 mg OG QAM [facility] Stop: 07/10/18 08:59 Last Admin: 06/11/18 09:10 Dose: 20 mg Documented by: Fentanyl Citrate (Fentanyl Citrate) 25 mcg IV ONE PRN PRN Reason: Pain Not Controlled by Drip Stop: 06/24/18 08:16 Hydromorphone HCl (Dilaudid Hurricane Tracker) 25 mg IV PRN PRN; Protocol PRN Reason: Pain Stop: 06/25/18 10:23 Hydromorphone HCl (Dilaudid) 1 mg IV Q3H PRN PRN Reason: Pain Stop: 06/25/18 10:32 Sodium Chloride (Nss) 250 mls @ 15 mls/hr IV .[id number] PRN PRN Reason: For Transfusion Stop: 07/06/18 15:28 Sodium Chloride (Nss) 250 mls @ 15 mls/hr IV .[id number] PRN PRN Reason: For Transfusion Stop: 07/10/18 05:43 Amiodarone HCl/Dextrose (Nexterone / D5w) 360 mg in 200 mls @ 16.667 mls/hr IV .Q12H [facility] Stop: 07/10/18 06:59 Last Infusion: 06/11/18 06:58 Dose: 0.5 mg/min, 16.7 mls/hr Documented by: Propofol (Diprivan) 1,000 mg in 100 mls @ 0 mls/hr IV .Q0M [facility]; Protocol Stop: 06/13/18 07:11 Last Titration: 06/11/18 07:20 Dose: 0 mcg/kg/min, 0 mls/hr Documented by: Fentanyl Citrate (Fentanyl Drip) 1,250 mcg in 250 mls @ 30 mls/hr IV .Q8H20M [facility]; Protocol Stop: 06/24/18 08:16 Last Titration: 06/11/18 10:19 Dose: 150 mcg/hr, 30 mls/hr Documented by: Heparin Sodium/Dextrose (Heparin Sodium/Dextrose) 25,000 units in 500 mls @ 21 mls/hr IV .[id number] [facility]IA; Protocol Stop: 07/10/18 16:29 Last Titration: 06/11/18 08:36 Dose: 1,050 units/hr, 21 mls/hr Documented by: Norepinephrine Bitartrate 8 mg (/ Sodium Chloride) 258 mls @ 55.43 mls/hr IV .Q4H40M PRN; Protocol PRN Reason: TITRATE Stop: 07/11/18 09:03 Sodium Chloride (Nss 1000ml) 1,000 mls @ 15 mls/hr IV .Q24H [facility] Stop: 06/25/18 10:25 Lidocaine (Lidoderm 5%) 1 patch TD QAM [facility] Stop: 07/02/18 16:29 Last Admin: 06/11/18 09:10 Dose: 1 patch Documented by: Miscellaneous (Remove Lidoderm Patch) 1 ea N/A HS [facility] Stop: 07/11/18 20:59 Naloxone HCl (Narcan) 0.1 mg IV Q5M PRN; Protocol PRN Reason: Oversedation/Resp Depression Stop: 06/18/18 08:36 Naloxone HCl (Narcan) 0.1 mg IV Q5M PRN; Protocol PRN Reason: Oversedation/Resp Depression Stop: 06/25/18 10:23 Ondansetron HCl (Zofran) 4 mg IV Q6H PRN PRN Reason: Nausea Stop: 07/02/18 15:53 Polyethylene Glycol (Miralax Powder Packet) 17 gm PO DAILY [facility] Stop: 07/11/18 08:59 Last Admin: 06/11/18 09:10 Dose: 17 gm Documented by: Resident Activity Tracking Resident Involvement: Resident Care Provided Care Provided: Adult Hospital Medicine
--- NOTE | 2018-06-11 08:18 | Critical Care Progress Note ---
Date of Service June 11, 2018 Assessment & Plan (1) Cardiac arrest: Reason Critically Ill: [id number] male with a past medical history including alcoholic liver cirrhosis with steatohepatitis and HCC, hypertension, COPD, A. fib, and congestive heart failure. He presented to the hospital with increasing shortness of breath in the setting of multiple rib fractures and pleural effusion/hemothorax and has been transferred to the ICU for further care following V. fib and arrest with subsequent ROSC. He is currently on mechanical ventilation and pressor support. Neuro - Sedated under intubation. (Propofol currently at 0mcg/kg/hr with assist and wean eval, fentanyl 100mcg/hr) Cardiac - VFib Arrest with ROSC - Unclear etiology. May have degenerated from bradycardia in context of hypoxemia - Currently intubated with norepinephrine drip titrate to MAP >=65, currently at .2mcg/kg/min - Cardiology consulted. Will likely need ICD once clinically stable. Allscripts review shows a hx of syncope and given his recent rib fractures question if his admission is due to cardiac syncopal events. - ECG shows no signs of ichemia Afib - Anticoagulation held in setting of rib fxr with hemothorax - Amiodarone gtt - Metoprolol/Atenolol held following arrest Respiratory - Mechanical ventilation post arrest. ABG post intubation showed AHRF with respiratory alkalosis - Currently at 14/5 with assist, trial wean today. - Concered for his moderate risk of PE. Respiratory status was improving yesterday, unclear why worsened. Echo shows RV dilitation and severe RA dilitation with is new from a relatively normal echo in March. He is not able to recieve a CT-PE/Angio 2/2 his GERMAN at this time. Given his risk of PE and need for anticoagulation for Afib, will keep him on heparin gtt and monitor for signs of worsened/new bleeding - R Pneumothorax on rCT 2/2 line placement vs traumatic/CPR - R chest tube in place draining 1265cc/12hr serosanginous. Intermittently to suction COPD - On [facility] vent as above - Albuterol Neb QID ALYSIA - Budesonide .25mg neb BID GI - Alcoholic Cirrhosis with steatohepatitis and HCC - CP Class B, MELD 11 - Follows with [facility] for HCC, stable - Persistent edema throughout admission tx with spironolactone and lasix - O'Brien and lasix held in context of hypotension - Low sodium diet if not NPO. NPO, intubated RENAL/LYTES - Hyponatremia - Fluid restriction. Salt tabs held prior to transfer - Hypertonic saline if needed, continue to follow. Lytes daily. Acute Kidney Failure 2/2 ATN, poor response to IVF - Cr at 2.52 from 0.72 - Continue to follow. May require dialysis if his UOP remains poor (~10-20cc Q2H) and develops electrolyte instability. - I/O +1965 at this time with echo 35-40% EF, high risk for fluid overload. - Killian in place FOllow I&Os ENDO - Glucose 100-low 200s. Continue to follow, now antiglycemics at this time HEME - Stable H&H, Hgb ~9 Leukocytosis to 19.81, afebrile, suspect 2/2 demargination/stress response ID - - Afebrile, low suspicion for PNA at this time Monitor fever curve INTEGUMENTARY - Chest wall bruising with R mild skin necrosis without signs of cellulitis at site of rib fxr - Continue to follow, Pressure ulcer prophylaxis. LINES/IV ACCESS - PIVs intact. DVT PROPHYLAXIS - Heparin gtt as above SCD Thank you for allowing us to be part of this patient's care. Please refer to Dr. Smalls's documentation for any further recommendations. Supervising Physician Co-Signing Physician Notes patient seen and examined with resident. agree with above except as documented cardiac arrest. v fib after bradycardia Constitutional: in pain HEENT: normocephalic atraumatic. CV: RRR nl s1,s2 no murmurs rubs or gallops Lungs: crackles bilaterally. no accessory muscle use . chest tube in place without air leak at time of my exam Abd: soft nontender nondistended. normal bowel sounds Ext: no edema. no cyanosis, no clubbing Skin: warm dry eccymosis to R chest Neuro: awake alert. moving all extremities Psych: anxious A/P: Neuro- awake alert. pain control will start hydromorphone [employer] CV- cardiac arrest unclear cause. possible bradycardia to v fib s/p defib. amiodarone. remains in shock requiring norepinephrine. titrate as needed. Pulmonary- acute hypoxic respiratory failure in setting of cardiac arrest. unclear if hypoxic event. PE is a possibility. did well on PSV today and extubated. sat borderline on 4L NC. titrate down fio2 for sat >90%. pneumothorax on R iatrogenic from central line vs after CPR now s/p chest tube. R rib fractures with recurrent pleural effusion likely hepatic hydrothorax ID- no clear evidence of infection Renal-acute renal failure likely ATN post cardiac arrest and hypotension. UOP poor not responding to fluids. GI- diet if no issues swallowing Heme- anemia, thrombocytopenia. heparin drip without bolus for his .a fib and the possibility that this was a PE Endocrine- blood sugars controlled Dispo- continue ICU care for hemodynamic and ventilatory support I have personally spent 50 minutes of critical care time in the direct management of this patient. This is a life/limb threatening event. This includes time spent evaluating patient, direct bedside care, chart review, placing orders, interpretation of diagnostic studies, discussion with consultants, patient, and/or family members regarding treatment decisions, as well as other required patient management activities. This time is exclusive of all separately billable procedures, and teaching time and separate from and in addition to any other critical care service time. Subjective Subjective unobtainable due to endotrachial intubation and sedation. Per nursing report did well overnight with vent decrease to 15/5 with .5 FiO2. 1265cc/12hr output of serosanginous material from R chest tube. Review of Systems Review of Systems: Unobtainable due to endotracheal tube Physical Exam Physical Exam: General: Sedated, Intubated. HEENT: Atraumatic, normocephalic. Pulm: Diminished. Breath sounds present bilaterally anteriorly, without rales/wheeze. On vent 14/5 .5 FiO2 trialing assist. Cardiac: RRR, -mrg. Radial pulses intact and symmetrical. Abdominal: Obese, soft. BS present. Large hematoma with mild skin necrosis on R flank at ribs 8-10. Supraumbilical hematoma present. Ext: Skin warm, dry. Pitting edema in lower extremities bilaterally. Results & Data Vital Signs (Past 12 Hours) Vital Signs Temp Pulse Pulse Resp BP Pulse Ox 06/11/18 07:59 79 85 14 98 06/11/18 06:00 79 105/68 98 06/11/18 05:25 81 14 97 06/11/18 05:00 91 H 104/71 94 06/11/18 04:00 37.3 C 83 95/65 L 06/11/18 03:30 75 100/63 98 06/11/18 03:00 76 97/61 L 98 06/11/18 02:10 72 13 100 06/11/18 02:00 36.7 C 77 97/58 L 98 06/11/18 01:00 85 94/60 L 96 06/11/18 00:31 78 103/64 96 06/11/18 00:30 82 96 06/11/18 00:16 82 83/57 L 95 06/11/18 00:01 79 99/68 L 96 06/10/18 23:30 67 12 93/62 L 100 06/10/18 23:00 70 100/54 L 99 06/10/18 22:00 68 94/57 L 100 06/10/18 21:30 71 95/59 L 99 06/10/18 21:00 67 88/54 L 99 06/10/18 20:16 75 91/55 L 99 Resident Activity Tracking Resident Involvement: Resident Care Provided Care Provided: Adult Hospital Medicine
[2018-06-11 08:21] LABS: Partial Thromboplastin Ratio 4.5
[2018-06-11 08:23] LABS: Partial Thromboplastin Time 123.3 Seconds (21.0-31.0)
[2018-06-11] MEDS: FAMOTIDINE 20 MG TAB OG SCH (09:10)
[2018-06-11] MEDS: LIDOCAINE 5% 1 PATCH TD SCH (09:10)
[2018-06-11] MEDS: POLYETHYLENE (MIRALAX) 17 GM PACK PO SCH (09:10)
--- NOTE | 2018-06-11 09:16 | Cardiology Progress Note ---
Date of Service June 11, 2018 Assessment & Plan (1) Cardiac arrest: Although the data is a little hard to interpret and there is a lot of artifact on telemetry he did clearly have ventricular fibrillation and required cardioversion which did convert his rhythm successfully. Leading up to it there is a suggestion that he had bradycardia although there is a lot of artifact and he was off the monitor for part of the time so it is hard to tell. I am bothered by the fact that he seems to have had a lot of injuries lately and a history of syncope and perhaps he has a history of bradycardia with falling, it is unlikely he has a history of ventricular fibrillation with spontaneous termination. He did not have pre-existing significant coronary artery disease and based on his electrocardiogram this does not appear to be an acute coronary event. Enzymes were not done and I ordered them. I suspect therefore this was a primary arrhythmia, I think he will need some sort of device whether it is a pacemaker or defibrillator we will have to sort out. For the moment I would continue the amiodarone and keep him on external patches so we could quickly hooked up to an external defibrillator if needed. He has had no further significant arrhythmias. (2) Multiple fractures of ribs: I am bothered by the fact that he had these rib fractures in early May, I do not know that you could have rib fractures to that extent by coughing. I am more inclined to believe that he fell and broke his ribs but does not recall it, suggesting that he had a syncopal event. He also evidently had an ankle fracture recently from reportedly slipping on wet grass, perhaps that was another syncopal or presyncopal event. He does have a history of syncope many years ago but may have more frequent episodes than we realize. If that is the case they are probably bradycardic not ventricular fibrillation, his recent ventricular fibrillation may have been bradycardia induced however these things are very difficult to prove. (3) Permanent atrial fibrillation: He has permanent atrial fibrillation, he is still in atrial fibrillation even following his shock. He is not on anticoagulation due to his cirrhosis and a history of GI bleeding. He is currently being weaned off of the ventilator. Specifically related to his arrhythmia his rate is under good control and we are not going to try to convert the rhythm so I would simply watch it. (4) CAD (coronary artery disease): He has catheterization proven coronary artery disease however this event does not seem likely to be due to an ischemic event such as an acute myocardial infarction. There is no electrocardiographic evidence of it and the echocardiogram may not be very helpful following an event like this but it is a little bit worrisome and we will need to repeat it in the near future to see if the abnormalities resolve. I think it might be helpful to draw cardiac enzymes, they will certainly be elevated but the pattern may be helpful. I have ordered them. It is possible he will need a catheterization but now with his renal insufficiency we certainly would not consider it on an urgent basis. Subjective Patient is still intubated, he is awake and appears very anxious and he is on BiPAP. I cannot interview him but he does respond appropriately and squeezes my hand. He is having chest pain certainly but has multiple reasons for that. Physical Exam Physical Exam: Constitutional: Alert, cooperative and in moderate distress. Intubated. Pulmonary: Rhonchi on auscultation bilaterally. Chest tube and on the right. Cardiac: Irregular rhythm with no murmur, gallop or rub. Abdomen: Soft, nontender with normal bowel sounds. Extremities: No edema. Results & Data Vital Signs (Past 12 Hours) Vital Signs Temp Pulse Pulse Resp BP Pulse Ox 06/11/18 07:59 79 85 14 98 06/11/18 06:00 79 105/68 98 06/11/18 05:25 81 14 97 06/11/18 05:00 91 H 104/71 94 06/11/18 04:00 37.3 C 83 95/65 L 06/11/18 03:30 75 100/63 98 06/11/18 03:00 76 97/61 L 98 06/11/18 02:10 72 13 100 06/11/18 02:00 36.7 C 77 97/58 L 98 06/11/18 01:00 85 94/60 L 96 06/11/18 00:31 78 103/64 96 06/11/18 00:30 82 96 06/11/18 00:16 82 83/57 L 95 06/11/18 00:01 79 99/68 L 96 06/10/18 23:30 67 12 93/62 L 100 06/10/18 23:00 70 100/54 L 99 06/10/18 22:00 68 94/57 L 100 06/10/18 21:30 71 95/59 L 99 Diagnostic Findings His echocardiogram yesterday shows moderate left ventricular dysfunction with ejection fraction of 40%, there are some wall motion abnormalities. (1) Multiple fractures of ribs Encounter type: initial encounter Fracture type: closed Laterality: right Qualified Code(s): S22.41XA - Multiple fractures of ribs, right side, initial encounter for closed fracture
[2018-06-11] MEDS: ALBUT/IPRATROP 3MG/0.5MG NEB 3 ML VIAL NEB SCH ×4 (09:33→19:24)
[2018-06-11] MEDS: BUDESONIDE 0.5 MG/2 ML VIAL (PULMICORT) NEB SCH ×2 (09:33→19:25)
[2018-06-11 10:00] LABS: C Reactive Protein 11.5 mg/dl (0-0.29); Troponin I 1.08 ng/ml (0-0.045)
[2018-06-11] MEDS ORDERED: NALOXONE HCL 0.4 MG/1 ML VIAL/CARP IV PRN (10:24)
[2018-06-11] MEDS ORDERED: HYDROmorphone INJ 1 MG/ML SYRINGE IV PRN (10:33)
[2018-06-11] MEDS: SODIUM CHLORIDE 0.9% 1000ML 1,000 ML IV SCH (11:15)
[2018-06-11] MEDS: HYDROmorphone HCL 0.5MG/ML 50 ML CASSETTE IV PRN (11:40)
[2018-06-11] MEDS: NSS IV PRN ×2 (12:09→21:15)
[2018-06-11] MEDS: NOREPINEPHRINE IV PRN ×2 (12:09→21:15)
[2018-06-11] MEDS: Heparin Adult STANDARD Wt-Based Dextrose 5% 25,000 units/500 mL IV SCH (12:37)
--- NOTE | 2018-06-11 14:25 | Progress Note ---
DATE: 06/11/2018 Mr. Zarco is seen today on 06/11/18. He is now extubated. I think his x-ray looked pretty good. He has a small pneumothorax, but does not really have much of an air leak. He is draining a significant amount of fluid, although it is decreased over the course of the day. He put out a total of over 1600 mL, but again it is decreased. I am impressed with how much better he looks. We will continue to follow and when his drainage decreases, we will remove this tube.
[2018-06-11 16:02] LABS: Partial Thromboplastin Ratio 3.3
[2018-06-11 16:10] LABS: Partial Thromboplastin Time 90.2 Seconds (21.0-31.0)
[2018-06-11 23:22] LABS: Partial Thromboplastin Ratio 2.2
[2018-06-11 23:38] LABS: Partial Thromboplastin Time 59.7 Seconds (21.0-31.0)
[2018-06-12] MEDS: ALBUT/IPRATROP 3MG/0.5MG NEB 3 ML VIAL NEB SCH ×5 (00:49→20:36)
[2018-06-12] MEDS: AMIODARONE / D5W 360 MG/200 ML BAG IV SCH ×2 (03:02→15:09)
[2018-06-12 04:56] LABS: Basophils # (auto) 0.02 K/uL (0-0.2); Basophils % (auto) 0.1 %; Eosinophils # (auto) 0.24 K/uL (0-0.5); Eosinophils % (auto) 1.4 %; Hematocrit (blood only) 25.5 % (42-52); Hemoglobin 8.7 g/dL (14.0-18.0); Immature Granulocytes # (auto) 0.06 K/uL (0.00-0.02); Immature Granulocytes % (auto) 0.4 %; Lymphocytes # (auto) 1.75 K/uL (1.2-3.4); Lymphocytes % (auto) 10.5 %; Mean Corpuscular Hgb Conc 34.1 g/dL (32-36); Mean Corpuscular Volume 94.8 fL (80-100); Mean Platelet Volume 9.6 fL (7.4-10.4); Monocytes # (auto) 2.08 K/uL (0.11-0.59); Monocytes % (auto) 12.4 %; Neutrophils # (auto) 12.59 K/uL (1.4-6.5); Neutrophils % (auto) 75.2 %; Platelet Count 206 K/uL (130-400); RDW Coefficient of Variation 17.5 % (11.5-14.5); RDW Standard Deviation 60.4 fL (36.4-46.3); Red Blood Count 2.69 M/uL (4.7-6.1); White Blood Count 16.74 K/uL (4.8-10.8)
[2018-06-12] MEDS: NSS IV PRN ×4 (05:19→23:29)
[2018-06-12] MEDS: NOREPINEPHRINE IV PRN ×4 (05:19→23:29)
[2018-06-12 05:20] LABS: BUN Creatinine Ratio 9.5 (10-20); Calcium 7.5 mg/dl (8.5-10.1); Creatinine Clr Calc Pharmacy 23.4 ml/min; Est GFR (African American) 16.8; Est GFR (Non-African American) 14.5; Magnesium 2.2 mg/dl (1.8-2.4); Potassium 4.6 mmol/L (3.5-5.1)
[2018-06-12 05:26] LABS: Phosphorus 7.9 mg/dl (2.5-4.9)
[2018-06-12] MEDS: BUDESONIDE 0.5 MG/2 ML VIAL (PULMICORT) NEB SCH ×2 (07:24→20:35)
[2018-06-12] MEDS: POLYETHYLENE (MIRALAX) 17 GM PACK PO SCH (07:25)
[2018-06-12] MEDS: LIDOCAINE 5% 1 PATCH TD SCH (07:25)
[2018-06-12] MEDS: FAMOTIDINE 20 MG TAB OG SCH (07:26)
--- NOTE | 2018-06-12 07:39 | XRay Report ---
XR chest 1V portable CLINICAL HISTORY: effusion COMPARISON STUDY: Chest radiograph June 11, 2018. FINDINGS: Endotracheal and nasogastric tubes have been removed. Right subclavian central line is in p lace. A right chest tube is in place. Multiple right-sided rib fractures are again noted. Small right pneumothorax is similar to previous exam. Pleural separation is 8 mm. There is pulmonary vascular co ngestion without overt pulmonary edema. IMPRESSION: 1. Right chest tube in place. No significant change in a small right pneumothorax. 2. Pulmonary vascular congestion. 3. Redemonstration of multiple right-sided rib fractures. Electronically signed by: Monster James M.D. 06/12/2018 7:38 AM
--- NOTE | 2018-06-12 08:11 | Cardiology Progress Note ---
Date of Service June 12, 2018 Assessment & Plan (1) Cardiac arrest: Although the data is a little hard to interpret and there is a lot of artifact on telemetry he did clearly have ventricular fibrillation and required cardioversion which did convert his rhythm successfully. Leading up to it there is a suggestion that he had bradycardia although there is a lot of artifact and he was off the monitor for part of the time so it is hard to tell. I am bothered by the fact that he seems to have had a lot of injuries lately and a history of syncope and perhaps he has a history of bradycardia with falling, it is unlikely he has a history of ventricular fibrillation with spontaneous termination. He did not have pre-existing significant coronary artery disease and based on his electrocardiogram this does not appear to be an acute coronary event. Enzymes were not done and I ordered them. I suspect therefore this was a primary arrhythmia, I think he will need some sort of device whether it is a pacemaker or defibrillator we will have to sort out. For the moment I would continue the amiodarone and keep him on external patches so we could quickly hooked up to an external defibrillator if needed. He has had no further significant arrhythmias. (2) Multiple fractures of ribs: I am bothered by the fact that he had these rib fractures in early May, I do not know that you could have rib fractures to that extent by coughing. I am more inclined to believe that he fell and broke his ribs but does not recall it, suggesting that he had a syncopal event. He also evidently had an ankle fracture recently from reportedly slipping on wet grass, perhaps that was another syncopal or presyncopal event. He does have a history of syncope many years ago but may have more frequent episodes than we realize. If that is the case they are probably bradycardic not ventricular fibrillation, his recent ventricular fibrillation may have been bradycardia induced however these things are very difficult to prove. (3) Permanent atrial fibrillation: He has permanent atrial fibrillation, he is still in atrial fibrillation even following his defibrillator shock. He is not on anticoagulation due to his cirrhosis and a history of GI bleeding. He is currently being weaned off of the ventilator. Specifically related to his arrhythmia his rate is under good control and we are not going to try to convert the rhythm so I would simply watch it. (4) CAD (coronary artery disease): He has catheterization proven coronary artery disease however this event does not seem likely to be due to an ischemic event such as an acute myocardial infarction. There is no electrocardiographic evidence of it and the echocardiogram may not be very helpful following an event like this but it is a little bit worrisome and we will need to repeat it in the near future to see if the abnormalities resolve. His troponin yesterday morning was only 1 and has dropped from there, that is indicative of demand ischemia from his event and it is not likely that this was a coronary event. I would not pursue further evaluation at this time. Subjective He looks better today, he is extubated and he is conversational. He appears however quite short of breath and he has audible wheezing and without a stethoscope. He is not complaining of chest discomfort. His chest tube remains in on the right. Physical Exam Physical Exam: Constitutional: Alert, cooperative and in mild distress. Pulmonary: Bilateral rhonchi and expiratory wheezing on auscultation bilaterally. Cardiac: Irregular rhythm with no murmur, gallop or rub. Abdomen: Soft, nontender with normal bowel sounds. Extremities: +2 bilateral edema. Skin: No rash, ecchymoses or petechiae. Results & Data Vital Signs (Past 12 Hours) Vital Signs Temp Pulse Pulse Resp BP Pulse Ox 06/12/18 06:30 83 18 111/63 96 06/12/18 06:00 82 95/64 L 96 06/12/18 05:30 82 18 98/70 L 95 06/12/18 05:00 88 18 97/63 L 94 06/12/18 04:46 84 18 106/58 L 93 06/12/18 04:30 79 104/69 96 06/12/18 04:00 36.8 C 88 101/65 92 06/12/18 03:16 80 93/65 L 95 06/12/18 03:00 90 102/66 95 06/12/18 02:30 85 18 106/63 93 06/12/18 02:00 80 18 98/62 L 93 06/12/18 01:30 82 92/58 L 94 06/12/18 01:00 86 98/62 L 94 06/12/18 00:49 89 24 94 06/12/18 00:16 86 120/61 95 06/12/18 00:00 36.7 C 82 92/65 L 95 06/11/18 23:00 86 89/56 L 92 06/11/18 22:00 87 97/62 L 93 06/11/18 21:46 83 88/52 L 94 06/11/18 21:33 91 H 90/62 L 92 06/11/18 21:31 94 H 67/53 L 93 06/11/18 21:00 88 18 93/55 L 94 (1) Multiple fractures of ribs Encounter type: initial encounter Fracture type: closed Laterality: right Qualified Code(s): S22.41XA - Multiple fractures of ribs, right side, initial encounter for closed fracture
--- NOTE | 2018-06-12 08:18 | Critical Care Progress Note ---
Date of Service June 12, 2018 Assessment & Plan (1) Cardiac arrest: Reason Critically Ill: [id number] male with a past medical history including alcoholic liver cirrhosis with steatohepatitis and HCC, hypertension, COPD, A. fib, and congestive heart failure. He presented to the hospital with increasing shortness of breath in the setting of multiple rib fractures and pleural effusion/hemothorax and has been transferred to the ICU for further care following V. fib and arrest with subsequent ROSC. Neuro - Somnolent, pain control with hydromorphone MANAGER SECURITY (.5mg continuous, .15mg intermittent with 15 min lockout) Cardiac - VFib Arrest with ROSC - Unclear etiology. May have degenerated from bradycardia in context of hypoxemia - Currently intubated with norepinephrine drip titrate to MAP >=65, currently at .16mcg/kg/min - Cardiology consulted. Will likely need ICD once clinically stable. Allscripts review shows a hx of syncope and given his recent rib fractures question if his admission is due to cardiac syncopal events. - ECG shows no signs of ichemia Afib - Anticoagulation initially held in setting of rib fxr with hemothorax, currently on heparin gtt as noted below - Amiodarone gtt - Metoprolol/Atenolol held following arrest Respiratory - AHRF: Extubated, on 5L NC - Repeat CXR shows residual small R pneumothorax unchanged from yesterday. PV congestion but no effusion, PNA - Concerned for his moderate risk of PE. Respiratory status was improving yesterday, unclear why worsened. Echo shows RV dilitation and severe RA dilitation with is new from a relatively normal echo in March. He is not able to recieve a CT-PE/Angio 2/2 his GERMAN at this time. Given his risk of PE and need for anticoagulation for Afib, will keep him on heparin gtt and monitor for signs of worsened/new bleeding - R Pneumothorax on rCT 2/2 line placement vs traumatic/CPR - R chest tube in place draining 870cc serosanginous. Intermittently to suction, intermittent airleak to 1 overnight COPD - Extubated, on NC 5L. Sat >94%, although coarse upper airway sounds today - Albuterol Neb QID ALYSIA - Budesonide .25mg neb BID GI - Alcoholic Cirrhosis with steatohepatitis and HCC - CP Class B, MELD 11 - Follows with [facility] for HCC, stable - Persistent edema throughout admission tx with spironolactone and lasix - [place] and lasix held in context of hypotension - Low sodium diet if not NPO. NPO RENAL/LYTES - Hyponatremia - Fluid restriction. Salt tabs held prior to transfer - Hypertonic saline if needed, continue to follow. Lytes daily. Hyperphosphatemia to 7.9, hypocalcemia to 7.5 - in context of GERMAN. Asymptomatic. Continue to follow, if renal function does n ot improve or symptomatic consider Ca-Acetate infusion Acute Kidney Failure 2/2 ATN, poor response to IVF - Cr at 3.9 from 2.52 - Continue to follow. May require dialysis if his UOP remains poor (~10-20cc Q2H) and develops electrolyte instability. - I/O 1.88L/870cc via chest tube, .03cc/kg/hr UOP at this time with echo 35-40% EF, high risk for fluid overload. - Killian in place FOllow I&Os ENDO - Glucose 100-low 130s. Continue to follow, now antiglycemics at this time HEME - Stable H&H, Hgb ~8.7 Leukocytosis down to 16.74 from 19.81, afebrile ID - - Afebrile, low suspicion for PNA at this time Monitor fever curve INTEGUMENTARY - Chest wall bruising with R mild skin necrosis without signs of cellulitis at site of rib fxr - Continue to follow, Pressure ulcer prophylaxis. LINES/IV ACCESS - PIVs intact. DVT PROPHYLAXIS - Heparin gtt as above SCD Thank you for allowing us to be part of this patient's care. Please refer to Dr. Smalls's documentation for any further recommendations. Supervising Physician Co-Signing Physician Notes patient seen and examined with resident. agree with above except as documented cardiac arrest. v fib after bradycardia Constitutional: comfortable NAD HEENT: normocephalic atraumatic. CV: RRR nl s1,s2 no murmurs rubs or gallops Lungs: crackles bilaterally. no accessory muscle use . chest tube in place without air leak Abd: soft nontender nondistended. normal bowel sounds Ext: no edema. no cyanosis, no clubbing Skin: warm dry eccymosis to R chest Neuro: awake alert. moving all extremities Psych: anxious A/P: Neuro- awake alert. pain control with hydromorphone MANAGER SECURITY CV- cardiac arrest unclear cause. possible bradycardia to v fib s/p defib. amiodarone. remains in shock requiring norepinephrine. titrate as able Pulmonary- acute hypoxic respiratory failure in setting of cardiac arrest. unclear if hypoxic event. PE is a possibility. extubated 5/3 sat well on NC. titrate down fio2 for sat >90%. pneumothorax on R iatrogenic from central line vs after CPR now s/p chest tube. chest tube continues to drain. R rib fractures with recurrent pleural effusion likely hepatic hydrothorax. pulmonary toilet ID- no clear evidence of infection Renal-acute renal failure likely ATN post cardiac arrest and hypotension. UOP remains poor not responding to fluids. GI- diet if no issues swallowing Heme- anemia, thrombocytopenia. heparin drip without bolus for his .a fib and the possibility that this was a PE Endocrine- blood sugars controlled Dispo- continue ICU care for hemodynamic and ventilatory support I have personally spent 40 minutes of critical care time in the direct management of this patient. This is a life/limb threatening event. This includes time spent evaluating patient, direct bedside care, chart review, placing orders, interpretation of diagnostic studies, discussion with consultants, patient, and/or family members regarding treatment decisions, as well as other required patient management activities. This time is exclusive of all separately billable procedures, and teaching time and separate from and in addition to any other critical care service time. Subjective He looks improved today, is breathing on NC and responds to questions appropria tely. Appears mildly short of breath with easily audible secretions/wheezing. Endorses continued pain in the R ribs. Voices no other questions/concerns this morning. Review of Systems Review of Systems: Constitutional: Denies fever, chills Cardiovascular: Denies Chest pain, chest pressure, palpitations. Respiratory: Endorses shortness of breath, endorses rib pain with inspiration. Gastrointestinal: Denies abdominal pain Musculoskeletal: + Rib/flank pain. Physical Exam Physical Exam: General: Somnilent, extubated, on 5L NC. HEENT: Atraumatic, normocephalic. Pulm: Diminished. Rhonchorus, radiating upper airway sounds globally with +secretions. No overt wheeze appreciated. No increased work of breathing, on O2 as above. Cardiac: RRR, -mrg. Radial pulses intact and symmetrical. Abdominal: Obese, soft. BS present. Large hematoma with mild skin necrosis on R flank at ribs 8-10. Supraumbilical hematoma present. Ext: Skin warm, dry. Pitting edema in lower extremities bilaterally. Cap refill ~2 seconds. Results & Data Vital Signs (Past 12 Hours) Vital Signs Temp Pulse Pulse Resp BP Pulse Ox 06/12/18 07:25 86 18 92 06/12/18 06:30 83 18 111/63 96 06/12/18 06:00 82 95/64 L 96 06/12/18 05:30 82 18 98/70 L 95 06/12/18 05:00 88 18 97/63 L 94 06/12/18 04:46 84 18 106/58 L 93 06/12/18 04:30 79 104/69 96 06/12/18 04:00 36.8 C 88 101/65 92 06/12/18 03:16 80 93/65 L 95 06/12/18 03:00 90 102/66 95 06/12/18 02:30 85 18 106/63 93 06/12/18 02:00 80 18 98/62 L 93 06/12/18 01:30 82 92/58 L 94 06/12/18 01:00 86 98/62 L 94 06/12/18 00:49 89 24 94 06/12/18 00:16 86 120/61 95 06/12/18 00:00 36.7 C 82 92/65 L 95 06/11/18 23:00 86 89/56 L 92 06/11/18 22:00 87 97/62 L 93 06/11/18 21:46 83 88/52 L 94 06/11/18 21:33 91 H 90/62 L 92 06/11/18 21:31 94 H 67/53 L 93 06/11/18 21:00 88 18 93/55 L 94 Laboratory Results 06/12/18 06/12/18 06/11/18 Range/Units 04:40 04:40 22:44 WBC 16.74 H (4.8-10.8) K/uL RBC 2.69 L (4.7-6.1) M/uL Hgb 8.7 L (14.0-18.0) g/dL Hct 25.5 L (42-52) % MCV 94.8 (80-100) fL MCH 32.3 (25-34) pg MCHC 34.1 (32-36) g/dL RDW Std Deviation 60.4 H (36.4-46.3) fL RDW Coeff of Zack 17.5 H (11.5-14.5) % Plt Count 206 (130-400) K/uL MPV 9.6 (7.4-10.4) fL Immature Gran % (Auto) 0.4 % Neut % (Auto) 75.2 % Lymph % (Auto) 10.5 % [place] % (Auto) 12.4 % Eos % (Auto) 1.4 % Baso % (Auto) 0.1 % Immature Gran # (Auto) 0.06 H (0.00-0.02) K/uL Neut # (Auto) 12.59 H (1.4-6.5) K/uL Lymph # (Auto) 1.75 (1.2-3.4) K/uL [place] # (Auto) 2.08 H (0.11-0.59) K/uL Eos # (Auto) 0.24 (0-0.5) K/uL Baso # (Auto) 0.02 (0-0.2) K/uL APTT 59.7 H* (21.0-31.0) Seconds PTT Ratio 2.2 Sodium 123 L (136-145) mmol/L Potassium 4.6 (3.5-5.1) mmol/L Chloride 85 L (98-107) mmol/L Carbon Dioxide 29 (21-32) mmol/L Anion Gap 9.0 (3-11) BUN 38 H D (7-18) mg/dl Creatinine 3.97 H D (0.6-1.4) mg/dl Est Cr Clr Drug Dosing 23.4 ml/min Est GFR ( Amer) 16.8 Est GFR (Non-Af Amer) 14.5 BUN/Creatinine Ratio 9.5 L (10-20) Glucose 132 H (70-99) mg/dl POC Glucose (other) (70-99) mg/dl Calcium 7.5 L (8.5-10.1) mg/dl Phosphorus 7.9 H D (2.5-4.9) mg/dl Magnesium 2.2 (1.8-2.4) mg/dl Troponin I (0-0.045) ng/ml C-Reactive Protein (0-0.29) mg/dl 06/11/18 06/11/18 06/11/18 Range/Units 19:53 15:35 11:37 WBC (4.8-10.8) K/uL RBC (4.7-6.1) M/uL Hgb (14.0-18.0) g/dL Hct (42-52) % MCV (80-100) fL MCH (25-34) pg MCHC (32-36) g/dL RDW Std Deviation (36.4-46.3) fL RDW Coeff of Zack (11.5-14.5) % Plt Count (130-400) K/uL MPV (7.4-10.4) fL Immature Gran % (Auto) % Neut % (Auto) % Lymph % (Auto) % [place] % (Auto) % Eos % (Auto) % Baso % (Auto) % Immature Gran # (Auto) (0.00-0.02) K/uL Neut # (Auto) (1.4-6.5) K/uL Lymph # (Auto) (1.2-3.4) K/uL [place] # (Auto) (0.11-0.59) K/uL Eos # (Auto) (0-0.5) K/uL Baso # (Auto) (0-0.2) K/uL APTT 90.2 H* (21.0-31.0) Seconds PTT Ratio 3.3 Sodium (136-145) mmol/L Potassium (3.5-5.1) mmol/L Chloride (98-107) mmol/L Carbon Dioxide (21-32) mmol/L Anion Gap (3-11) BUN (7-18) mg/dl Creatinine (0.6-1.4) mg/dl Est Cr Clr Drug Dosing ml/min Est GFR ( Amer) Est GFR (Non-Af Amer) BUN/Creatinine Ratio (10-20) Glucose (70-99) mg/dl POC Glucose (other) 156 H (70-99) mg/dl Calcium (8.5-10.1) mg/dl Phosphorus (2.5-4.9) mg/dl Magnesium (1.8-2.4) mg/dl Troponin I 0.700 H* (0-0.045) ng/ml C-Reactive Protein (0-0.29) mg/dl 06/11/18 Range/Units 09:03 WBC (4.8-10.8) K/uL RBC (4.7-6.1) M/uL Hgb (14.0-18.0) g/dL Hct (42-52) % MCV (80-100) fL MCH (25-34) pg MCHC (32-36) g/dL RDW Std Deviation (36.4-46.3) fL RDW Coeff of Zack (11.5-14.5) % Plt Count (130-400) K/uL MPV (7.4-10.4) fL Immature Gran % (Auto) % Neut % (Auto) % Lymph % (Auto) % [place] % (Auto) % Eos % (Auto) % Baso % (Auto) % Immature Gran # (Auto) (0.00-0.02) K/uL Neut # (Auto) (1.4-6.5) K/uL Lymph # (Auto) (1.2-3.4) K/uL [place] # (Auto) (0.11-0.59) K/uL Eos # (Auto) (0-0.5) K/uL Baso # (Auto) (0-0.2) K/uL APTT (21.0-31.0) Seconds PTT Ratio Sodium (136-145) mmol/L Potassium (3.5-5.1) mmol/L Chloride (98-107) mmol/L Carbon Dioxide (21-32) mmol/L Anion Gap (3-11) BUN (7-18) mg/dl Creatinine (0.6-1.4) mg/dl Est Cr Clr Drug Dosing ml/min Est GFR ( Amer) Est GFR (Non-Af Amer) BUN/Creatinine Ratio (10-20) Glucose (70-99) mg/dl POC Glucose (other) (70-99) mg/dl Calcium (8.5-10.1) mg/dl Phosphorus (2.5-4.9) mg/dl Magnesium (1.8-2.4) mg/dl Troponin I 1.080 H* (0-0.045) ng/ml C-Reactive Protein 11.50 H (0-0.29) mg/dl Medications Administered Current Inpatient Medications Albuterol (Duoneb) 3 ml NEB QIDR [facility] Stop: 07/02/18 15:59 Last Admin: 06/12/18 07:24 Dose: 3 ml Documented by: Budesonide (Pulmicort Respules) 0.25 mg NEB BIDR [facility] Stop: 07/09/18 19:59 Last Admin: 06/12/18 07:24 Dose: 0.25 mg Documented by: Budesonide/Formoterol Fumarate (Symbicort 160mcg/4.5mcg) 2 puffs INH BID [facility] Stop: 07/05/18 08:59 Last Admin: 06/09/18 20:16 Dose: 2 puffs Documented by: Famotidine (Pepcid) 20 mg OG QAM [facility] Stop: 07/10/18 08:59 Last Admin: 06/12/18 07:26 Dose: 20 mg Documented by: Heparin Sodium (Beef Lung) (Heparin Sod 10 Unit/Ml Flush) 5 ml FLUSH PRN PRN PRN Reason: Flush Stop: 07/12/18 00:36 Hydromorphone HCl (Dilaudid Floriculturist) 25 mg IV PRN PRN; Protocol PRN Reason: Pain Stop: 06/25/18 10:23 Last Admin: 06/11/18 11:40 Dose: 25 mg Documented by: Hydromorphone HCl (Dilaudid) 1 mg IV Q3H PRN PRN Reason: Pain (Breakthrough) Stop: 06/25/18 10:32 Sodium Chloride (Nss) 250 mls @ 15 mls/hr IV .[id number] PRN PRN Reason: For Transfusion Stop: 07/06/18 15:28 Sodium Chloride (Nss) 250 mls @ 15 mls/hr IV .[id number] PRN PRN Reason: For Transfusion Stop: 07/10/18 05:43 Amiodarone HCl/Dextrose (Nexterone / D5w) 360 mg in 200 mls @ 16.667 mls/hr IV .Q12H ALYSIA Stop: 07/10/18 06:59 Last Admin: 06/12/18 03:02 Dose: 0.5 mg/min, 16.7 mls/hr Documented by: Propofol (Diprivan) 1,000 mg in 100 mls @ 0 mls/hr IV .Q0M ALYSIA; Protocol Stop: 06/13/18 07:11 Last Titration: 06/11/18 11:14 Dose: Infused Documented by: Heparin Sodium/Dextrose (Heparin Sodium/Dextrose) 25,000 units in 500 mls @ 17 mls/hr IV .Q24H ALYSIA; Protocol Stop: 07/10/18 16:29 Last Titration: 06/12/18 07:01 Dose: 850 units/hr, 17 mls/hr Documented by: Norepinephrine Bitartrate 8 mg (/ Sodium Chloride) 258 mls @ 40.31 mls/hr IV .Q6H25M PRN; Protocol PRN Reason: TITRATE Stop: 07/11/18 09:03 Last Titration: 06/12/18 07:01 Dose: 0.16 mcg/kg/min, 40.3 mls/hr Documented by: Sodium Chloride (Nss 1000ml) 1,000 mls @ 15 mls/hr IV .Q24H ALYSIA Stop: 06/25/18 10:25 Last Admin: 06/11/18 11:15 Dose: 30 mls/hr Documented by: Lidocaine (Lidoderm 5%) 1 patch TD QAM ALYSIA Stop: 07/02/18 16:29 Last Admin: 06/12/18 07:25 Dose: 1 patch Documented by: Miscellaneous (Remove Lidoderm Patch) 1 ea N/A HS [facility] Stop: 07/11/18 20:59 Last Admin: 06/11/18 20:32 Dose: 1 ea Documented by: Naloxone HCl (Narcan) 0.1 mg IV Q5M PRN; Protocol PRN Reason: Oversedation/Resp Depression Stop: 06/25/18 10:23 Ondansetron HCl (Zofran) 4 mg IV Q6H PRN PRN Reason: Nausea Stop: 07/02/18 15:53 Polyethylene Glycol (Miralax Powder Packet) 17 gm PO DAILY ALYSIA Stop: 07/11/18 08:59 Last Admin: 06/12/18 07:25 Dose: 17 gm Documented by: Resident Activity Tracking Resident Involvement: Resident Care Provided Care Provided: Adult [facility] Medicine
--- NOTE | 2018-06-12 10:37 | Family Medicine Progress Note ---
Date of Service June 12, 2018 Assessment & Plan (1) Admitted to intensive care unit: Cardiac Arrest Patient in ICU status post cardiac arrest -Coni of arrest rhythm not entirely clear, cardiology on board Dr. Garcia, believes patient will likely need some sort of pacing prior to d/c -Holding atenolol and metoprolol status post arrest with preceding bradycardia Pleural Effusion Patient with recurrent hemothorax, had new pneomothorax yesterday after central line placement. Chest tube currently in place continues to drain bloody fluid. Chest X ray today shows small (~8mm pneumothorax) Multiple fractures of ribs: Patient with fractures of ribs 7-10 mid-axillary line, diagnosed by CT during last hospital admission. Possibly secondary to severe coughing in setting of recent PNA/bronchitis. 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 Child Class B, MELD score =11. MRI performed on 01/11/18 with two lesions suspicious for HCC. AFP level on 04/29/18 was 22.8 (relatively stable, was 27.9 on 07/23/17 and 18.9 on 01/18/18). Patient reports that he follows with Dr. Petty for this and has been doing well. Patient with anasarca today. Patient has been on multiple courses of Prednisone over the past month which is most likely contributing to fluid retention. Is not encephalopathic, does not appear to have significant ascites, liver labs are essentially unchanged from prior. Do not suspect decompensated cirrhosis. Weight is 120kg, was 136kg on discharge but patient reports appx 15 pound gain over the last 2 weeks admission. -GI signed off -Worsening renal failure -Holding spironolactone or Lasix secondary to hypotension -likely ATN 2/2 to poor perfusion and hypotension -Low Na/CC diet -Daily weights 132.7->131.2->130.2->133.1 -> 132.9 today -Daily BMP COPD (chronic obstructive pulmonary disease): Patient with COPD, washing machine exam, likely mucus in lungs -Supplemental O2 PRN to maintain sats 92% -DuoNebs q 6 hours -Albuterol q 2 hours PRN -Will not continue steroids at this time Hypertension: Currently off pressors vital signs stable PT/OT recommend acute rehab F/E/N -low-salt diet Ppx -currently on hold Code -Full per discussion with patient Dispo -ICU (2) CAD (coronary artery disease): (3) Permanent atrial fibrillation: (4) Cardiac arrest: (5) Hypertension: (6) CHF (congestive heart failure): (7) COPD (chronic obstructive pulmonary disease): (8) History of thoracentesis: (9) Multiple fractures of ribs: Supervising Physician Co-Signing Physician Notes I personally examined the patient and verified all james points of history and exam, discussed case, and agree with decision making with Dr Bond. A little bit more sedated today, but pain medicines have been turned up, he seems to appreciate this. pleased with his progress. No new complaints. Vitals noted, awake and alert, easily fatigued but no distress. HEENT normocephalic atraumatic mucous members moist. Breathing is unlabored no accessory muscle use good effort, he does have coarse rhonchi but no significant respiratory distress or hypoxia.. Skin shows no rashes no pallor. No focal neuro deficits. Cardiac arrestappears to have been a predominantly arrhythmogenic arrest. Continue antiarrhythmics and supportive care. Has been improving overall since highly likely to need ICD and/or pacer. Appreciate cardiology input. Hypotensionmanage as per ICU. Improving Respiratory failureresolved and extubated Acute renal failuremost likely ATN. Continue supportive care, continue to follow electrolytes, urine output. Right-sided effusion/pneumothoraxchest tube management, surgery input appreciated Anemiacontinue to follow CBC Otherwise as above Subjective Santos Zarco is very somnolent today, he is rousable enough to show that he is oriented to person place and situation, but quickly falls asleep on further questioning. His is in the room and is rightfully very concerned. Had discussion on his current status and she feels his pain is far better controlled to yesterday, but she is alarmed by the altered mental status. We discussed that this could likely be due to the pain medication and she is happy that it is better controlled than yesterday. Informed her to contact us if there are any acute mental status changes or patient becomes unrousable. Review of Systems Review of Systems: Unobtainable due to reduced consciousness Physical Exam Constitutional: + ill appearing and + morbidly obese; no acute distress Eyes: + scleral abnormality (jaundiced) and PERRL Neck: normal visual inspection Respiratory: normal respiratory effort Auscultation: + crackles and + wheezes Slightly diminished globally, no focal areas of reduced air entry Cardiovascular: Rate/Rhythm: + abnormal rhythm Heart Sounds: no click, no gallop, no murmur and no cardiac rub Vessels: normal peripheral pulses Gastrointestinal (Abdomen): Inspection/Auscultation: + abdomen distended and normal bowel sounds Percussion/Palpation: + abdomen tender (flank), abdomen soft and + ascites Skin: + jaundice Large bruise over tender flank Neurologic: PERRL, EOMI, accommodation nl, no face palsy, no dysarthria Deep tendon reflexes intact 2+ Results & Data Vital Signs (Past 12 Hours) Vital Signs Temp Pulse Pulse Resp BP Pulse Ox 06/12/18 09:00 84 19 112/65 97 06/12/18 08:00 36.8 C 83 17 109/69 96 06/12/18 07:25 86 18 92 06/12/18 07:00 90 20 108/63 96 06/12/18 06:30 83 18 111/63 96 06/12/18 06:00 82 95/64 L 96 06/12/18 05:30 82 18 98/70 L 95 06/12/18 05:00 88 18 97/63 L 94 06/12/18 04:46 84 18 106/58 L 93 06/12/18 04:30 79 104/69 96 06/12/18 04:00 36.8 C 88 101/65 92 06/12/18 03:16 80 93/65 L 95 06/12/18 03:00 90 102/66 95 06/12/18 02:30 85 18 106/63 93 06/12/18 02:00 80 18 98/62 L 93 06/12/18 01:30 82 92/58 L 94 06/12/18 01:00 86 98/62 L 94 06/12/18 00:49 89 24 94 06/12/18 00:16 86 120/61 95 06/12/18 00:00 36.7 C 82 92/65 L 95 06/11/18 23:00 86 89/56 L 92 Resident Activity Tracking Resident Involvement: Resident Care Provided Care Provided: Adult Hospital Medicine (1) Multiple fractures of ribs Encounter type: initial encounter Fracture type: closed Laterality: right Qualified Code(s): S22.41XA - Multiple fractures of ribs, right side, initial encounter for closed fracture
--- NOTE | 2018-06-12 11:18 | Surgery Progress Note ---
Date of Service June 12, 2018 Assessment & Plan (1) Pleural effusion, right: -pt. is s/p thoracentesis and CT on right due to pneumothorax -cultures are noted to be (-) and cytology (-) for malignancy -keep CT in place due to high output Subjective Pt. does not note any specific complaints. Discussed with RN and no concerns noted at this time. Physical Exam Respiratory: BS are decreased at bases CT has no air leak Results & Data Vital Signs (Past 12 Hours) Vital Signs Temp Pulse Pulse Resp BP Pulse Ox 06/12/18 09:00 84 19 112/65 97 06/12/18 08:00 36.8 C 83 17 109/69 96 06/12/18 07:25 86 18 92 06/12/18 07:00 90 20 108/63 96 06/12/18 06:30 83 18 111/63 96 06/12/18 06:00 82 95/64 L 96 06/12/18 05:30 82 18 98/70 L 95 06/12/18 05:00 88 18 97/63 L 94 06/12/18 04:46 84 18 106/58 L 93 06/12/18 04:30 79 104/69 96 06/12/18 04:00 36.8 C 88 101/65 92 06/12/18 03:16 80 93/65 L 95 06/12/18 03:00 90 102/66 95 06/12/18 02:30 85 18 106/63 93 06/12/18 02:00 80 18 98/62 L 93 06/12/18 01:30 82 92/58 L 94 06/12/18 01:00 86 98/62 L 94 06/12/18 00:49 89 24 94 06/12/18 00:16 86 120/61 95 06/12/18 00:00 36.7 C 82 92/65 L 95
[2018-06-12] MEDS: HYDROmorphone HCL 0.5MG/ML 50 ML CASSETTE IV PRN (15:36)
[2018-06-12] MEDS: SODIUM CHLORIDE 0.9% 1000ML 1,000 ML IV SCH ×2 (16:32→19:01)
[2018-06-12] MEDS: Heparin Adult STANDARD Wt-Based Dextrose 5% 25,000 units/500 mL IV SCH (19:00)
[2018-06-13] MEDS: AMIODARONE / D5W 360 MG/200 ML BAG IV SCH ×2 (02:37→13:39)
[2018-06-13] MEDS ORDERED: HEPARIN IV BOLUS 4,000 UNITS in SYRINGE 0 ML IV ONE ×2 (05:00→06:00)
[2018-06-13 05:10] LABS: Basophils # (auto) 0.01 K/uL (0-0.2); Basophils % (auto) 0.1 %; Eosinophils # (auto) 0.09 K/uL (0-0.5); Eosinophils % (auto) 0.7 %; Hematocrit (blood only) 23.5 % (42-52); Hemoglobin 8.2 g/dL (14.0-18.0); Immature Granulocytes # (auto) 0.05 K/uL (0.00-0.02); Immature Granulocytes % (auto) 0.4 %; Lymphocytes # (auto) 1.11 K/uL (1.2-3.4); Mean Corpuscular Hgb Conc 34.9 g/dL (32-36); Mean Corpuscular Volume 93.6 fL (80-100); Mean Platelet Volume 9.5 fL (7.4-10.4); Monocytes # (auto) 1.78 K/uL (0.11-0.59); Monocytes % (auto) 14.4 %; Neutrophils # (auto) 9.35 K/uL (1.4-6.5); Neutrophils % (auto) 75.4 %; Platelet Count 208 K/uL (130-400); RDW Coefficient of Variation 17.4 % (11.5-14.5); RDW Standard Deviation 59.3 fL (36.4-46.3); Red Blood Count 2.51 M/uL (4.7-6.1); White Blood Count 12.39 K/uL (4.8-10.8)
[2018-06-13 05:20] LABS: Partial Thromboplastin Ratio 1.6; Partial Thromboplastin Time 43.8 Seconds (21.0-31.0)
[2018-06-13 05:44] LABS: BUN Creatinine Ratio 10.9 (10-20); Calcium 7.2 mg/dl (8.5-10.1); Creatinine Clr Calc Pharmacy 18.3 ml/min; Est GFR (African American) 12.5; Est GFR (Non-African American) 10.8; Magnesium 2.3 mg/dl (1.8-2.4); Potassium 4.9 mmol/L (3.5-5.1)
[2018-06-13] MEDS: BUDESONIDE 0.5 MG/2 ML VIAL (PULMICORT) NEB SCH ×2 (07:13→19:24)
[2018-06-13] MEDS: ALBUT/IPRATROP 3MG/0.5MG NEB 3 ML VIAL NEB SCH ×4 (07:13→19:23)
[2018-06-13] MEDS: FAMOTIDINE 20 MG TAB OG SCH (07:15)
[2018-06-13] MEDS: LIDOCAINE 5% 1 PATCH TD SCH (07:15)
--- NOTE | 2018-06-13 07:15 | XRay Report ---
SINGLE VIEW CHEST CLINICAL HISTORY: Pneumothorax. FINDINGS: An AP, portable, upright chest radiograph is compared to study dated 06/12/2018 and correlate d with chest CT dated 06/06/2018. The examination is degraded by portable technique, large body habitu s, and patient rotation. A right subclavian central venous catheter a right-sided chest tube are unc hanged in position. The heart is enlarged and there is atherosclerotic calcification of the thoracic aorta. There is pulmonary vascular congestion. Emphysema and chronic interstitial thickening are marquis lar to previous. There is a small right pleural effusion. Bibasilar atelectasis is noted. A trace rig ht apical pneumothorax is unchanged from previous. The skeletal structures are osteopenic. Right-side d rib fractures are again noted. IMPRESSION: 1. Stable lines and tubes. 2. Trace right apical pneumothorax persists. 3. Cardiomegaly with evidence of congestive failure. 4. Emphysema. 5. There is a small right pleural effusion. Electronically signed by: José Miguel Butler M.D. 06/13/2018 7:14 AM
[2018-06-13] MEDS: POLYETHYLENE (MIRALAX) 17 GM PACK PO SCH (07:16)
--- NOTE | 2018-06-13 08:02 | Critical Care Progress Note ---
Date of Service June 13, 2018 Assessment & Plan (1) Admitted to intensive care unit: Neuro- awake alert. pain control with hydromorphone [employer] - has been more sleepy with decrease continuous rate of [employer] CV- cardiac arrest unclear cause. possible bradycardia to v fib s/p defib. amiodarone. may need defib. remains in shock requiring norepinephrine. slowly decreasing requirements. titrate as able Pulmonary- acute hypoxic respiratory failure in setting of cardiac arrest. unclear if hypoxic event. PE is a possibility. extubated 06/11 sat well on NC. titrate down fio2 for sat >90%. pneumothorax on R iatrogenic from central line vs after CPR now s/p chest tube. chest tube continues to drain. R rib fractures with recurrent pleural effusion likely hepatic hydrothorax. pulmonary toilet ID- no clear evidence of infection Renal-acute renal failure likely ATN post cardiac arrest and hypotension. UOP remains poor though minimally better. cr worsening. renal eval possible need for dialysis soon. t/c trial of furosemide if BP tolerates. hyponatremia GI- diet if tolerated Heme- anemia, thrombocytopenia. heparin drip for his .a fib and the possibility that this was a PE Endocrine- blood sugars controlled Dispo- continue ICU care for hemodynamic and ventilatory support I have personally spent 40 minutes of critical care time in the direct management of this patient. This is a life/limb threatening event. This includes time spent evaluating patient, direct bedside care, chart review, placing orders, interpretation of diagnostic studies, discussion with consultants, patient, and/or family members regarding treatment decisions, as well as other required patient management activities. This time is exclusive of all separately billable procedures, and teaching time and separate from and in addition to any other critical care service time. Subjective says his pain is controlled this ma UOP remains poor remains on vasopressors Physical Exam Physical Exam: Constitutional: comfortable NAD HEENT: normocephalic atraumatic. CV: RRR nl s1,s2 no murmurs rubs or gallops Lungs: crackles bilaterally. no accessory muscle use . chest tube in place without air leak Abd: soft nontender nondistended. normal bowel sounds Ext: no edema. no cyanosis, no clubbing Skin: warm dry ecchymosis to R chest Neuro: drowsy but answers questions appropriately. moving all extremities Psych: anxious Results & Data Vital Signs (Past 12 Hours) Vital Signs Temp Pulse Pulse Resp BP Pulse Ox 06/13/18 07:15 87 22 93 06/13/18 06:00 88 17 101/58 L 91 06/13/18 05:00 86 17 107/59 L 94 06/13/18 04:21 92 H 13 103/49 L 93 06/13/18 04:11 92 H 8 L 97/58 L 93 06/13/18 04:00 36.6 C 91 H 19 103/78 93 06/13/18 03:30 92 H 18 106/60 91 06/13/18 03:01 91 H 15 107/59 L 90 06/13/18 02:00 89 14 106/60 97 06/13/18 01:11 87 16 96/60 L 97 06/13/18 01:00 91 H 15 101/65 94 06/13/18 00:30 84 20 94/60 L 97 06/13/18 00:00 86 16 104/66 96 06/12/18 23:30 86 16 99/57 L 95 06/12/18 23:11 94 H 20 134/51 L 91 06/12/18 23:03 94 H 17 116/58 L 93 06/12/18 22:21 89 18 99/62 L 90 06/12/18 22:00 89 24 102/55 L 92 06/12/18 21:51 82 14 102/65 90 06/12/18 21:30 92 H 16 114/63 96 06/12/18 21:00 81 18 114/65 95 06/12/18 20:36 83 12 96 06/12/18 20:00 36.3 C L 89 14 103/69 96 Laboratory Results Laboratory Results - last 24 hr 06/10/18 06/13/18 06/13/18 05:41 04:51 04:51 WBC 12.39 H RBC 2.51 L Hgb 8.2 L Hct 23.5 L MCV 93.6 MCH 32.7 MCHC 34.9 RDW Std Deviation 59.3 H RDW Coeff of Zack 17.4 H Plt Count 208 MPV 9.5 Immature Gran % (Auto) 0.4 Neut % (Auto) 75.4 Lymph % (Auto) 9.0 [place] % (Auto) 14.4 Eos % (Auto) 0.7 Baso % (Auto) 0.1 Immature Gran # (Auto) 0.05 H Neut # (Auto) 9.35 H Lymph # (Auto) 1.11 L [place] # (Auto) 1.78 H Eos # (Auto) 0.09 Baso # (Auto) 0.01 APTT PTT Ratio Sodium 124 L Potassium 4.9 Chloride 85 L Carbon Dioxide 28 Anion Gap 11.0 BUN 54 H Creatinine 5.07 H* D Est Cr Clr Drug Dosing 18.3 Est GFR ( Amer) 12.5 Est GFR (Non-Af Amer) 10.8 BUN/Creatinine Ratio 10.9 Glucose 133 H Calcium 7.2 L Phosphorus 9.0 H Magnesium 2.3 Crossmatch See Detail 06/13/18 04:51 WBC RBC Hgb Hct MCV MCH MCHC RDW Std Deviation RDW Coeff of Zack Plt Count MPV Immature Gran % (Auto) Neut % (Auto) Lymph % (Auto) [place] % (Auto) Eos % (Auto) Baso % (Auto) Immature Gran # (Auto) Neut # (Auto) Lymph # (Auto) [place] # (Auto) Eos # (Auto) Baso # (Auto) APTT 43.8 H PTT Ratio 1.6 Sodium Potassium Chloride Carbon Dioxide Anion Gap BUN Creatinine Est Cr Clr Drug Dosing Est GFR ( Amer) Est GFR (Non-Af Amer) BUN/Creatinine Ratio Glucose Calcium Phosphorus Magnesium Crossmatch
--- NOTE | 2018-06-13 08:16 | Cardiology Progress Note ---
Date of Service June 13, 2018 Assessment & Plan (1) Cardiac arrest: Although the data is a little hard to interpret and there is a lot of artifact on telemetry he did clearly have ventricular fibrillation and required cardioversion which did convert his rhythm successfully. Leading up to it there is a suggestion that he had bradycardia although there is a lot of artifact and he was off the monitor for part of the time so it is hard to tell. I am bothered by the fact that he seems to have had a lot of injuries lately and a history of syncope and perhaps he has a history of bradycardia with falling, it is unlikely he has a history of ventricular fibrillation with spontaneous termination. He did not have pre-existing significant coronary artery disease and based on his electrocardiogram this does not appear to be an acute coronary event. Enzymes were not done and I ordered them. I suspect therefore this was a primary arrhythmia, I think he will need some sort of device whether it is a pacemaker or defibrillator we will have to sort out. For the moment I would continue the amiodarone and keep him on external patches so we could quickly supervisor plate pasting to an external defibrillator if needed. He has had no further significant arrhythmias. (2) Multiple fractures of ribs: I am bothered by the fact that he had these rib fractures in early May, I do not know that you could have rib fractures to that extent by coughing. I am more inclined to believe that he fell and broke his ribs but does not recall it, suggesting that he had a syncopal event. He also evidently had an ankle fracture recently from reportedly slipping on wet grass, perhaps that was another syncopal or presyncopal event. He does have a history of syncope many years ago but may have more frequent episodes than we realize. If that is the case they are probably bradycardic not ventricular fibrillation, his recent ventricular fibrillation may have been bradycardia induced however these things are very difficult to prove. (3) Permanent atrial fibrillation: He has permanent atrial fibrillation, he is still in atrial fibrillation even following his defibrillator shock. He is not on anticoagulation due to his cirrhosis and a history of GI bleeding. He is currently off of the ventilator. Specifically related to his arrhythmia his rate is under good control and we are not going to try to convert the rhythm so I would simply watch it. (4) CAD (coronary artery disease): He has catheterization proven coronary artery disease however this event does not seem likely to be due to an ischemic event such as an acute myocardial infarction. There is no electrocardiographic evidence of it and the echocardiogram may not be very helpful following an event like this but it is a little bit worrisome and we will need to repeat it in the near future to see if the abnormalities resolve. His troponin after his event was only 1 and has dropped from there, that is indicative of demand ischemia from his event and it is not likely that this was a coronary event. I would not pursue further evaluation at this time. Subjective He is confused this morning, he is complaining of pain but cannot be specific. He says he feels terrible but cannot give me examples as to why. Physical Exam Physical Exam: Constitutional: Alert, cooperative and in no distress. Pulmonary: Bilateral rhonchi. Chest tube in place on right. Cardiac: Irregular rhythm with no murmur, gallop or rub. Abdomen: Soft, nontender with normal bowel sounds. Extremities: +2 bilateral pretibial edema. Skin: No rash, ecchymoses or petechiae. Results & Data Vital Signs (Past 12 Hours) Vital Signs Temp Pulse Pulse Resp BP Pulse Ox 06/13/18 07:15 87 22 93 06/13/18 06:00 88 17 101/58 L 91 06/13/18 05:00 86 17 107/59 L 94 06/13/18 04:21 92 H 13 103/49 L 93 06/13/18 04:11 92 H 8 L 97/58 L 93 06/13/18 04:00 36.6 C 91 H 19 103/78 93 06/13/18 03:30 92 H 18 106/60 91 06/13/18 03:01 91 H 15 107/59 L 90 06/13/18 02:00 89 14 106/60 97 06/13/18 01:11 87 16 96/60 L 97 06/13/18 01:00 91 H 15 101/65 94 06/13/18 00:30 84 20 94/60 L 97 06/13/18 00:00 86 16 104/66 96 06/12/18 23:30 86 16 99/57 L 95 06/12/18 23:11 94 H 20 134/51 L 91 06/12/18 23:03 94 H 17 116/58 L 93 06/12/18 22:21 89 18 99/62 L 90 05/04/19 22:00 89 24 102/55 L 92 06/12/18 21:51 82 14 102/65 90 06/12/18 21:30 92 H 16 114/63 96 06/12/18 21:00 81 18 114/65 95 06/12/18 20:36 83 12 96 Diagnostic Findings Telemetry: Atrial fibrillation with a controlled heart rate (1) Multiple fractures of ribs Encounter type: initial encounter Fracture type: closed Laterality: right Qualified Code(s): S22.41XA - Multiple fractures of ribs, right side, initial encounter for closed fracture
[2018-06-13] MEDS: DOCUSATE SODIUM 100 MG CAP PO SCH ×2 (08:23→21:18)
[2018-06-13] MEDS: SENNA 8.6 MG TAB PO SCH (08:23)
[2018-06-13] MEDS ORDERED: FUROSEMIDE 80 MG in SYRINGE 0 ML IV ONE (08:30)
[2018-06-13 12:06] LABS: Partial Thromboplastin Ratio 3.7
[2018-06-13 12:12] LABS: Partial Thromboplastin Time 99.4 Seconds (21.0-31.0)
--- NOTE | 2018-06-13 12:26 | Nephrology Consultation ---
Date of Consultation June 13, 2018 Assessment & Plan (1) Acute kidney injury: Adam is a 67-year-old gentlemen with complex past medical history initially admitted to the hospital with Rib fracture, hemo pneumothorax. He had chest tube placed with overall improvement. Had a cardiac arrest on 06/10/2018 possibly with bradycardia and then ventricular fibrillation and successfully resuscitated. Was initially intubated and transferred to ICU and extubated and next day. Developed acute kidney injury following cardiac arrest and renal function has been rapidly worsening over last 2 days. He became anuric over last 8 hours and getting significantly volume overloaded. Blood pressure has be en persistently low. Rapid rise of creatinine over chest 2 days is suggestive dense ATN. Possibility for postrenal obstruction remains seems less likely. --schedule for emergency dialysis for significant volume overload with anuria hyponatremia and rapid rise creatinine with change in mental status confusion --will get renal ultrasound looks postrenal obstruction --monitor renal function closely for recovery while providing dialysis --avoid further IV fluid --dose meds for GFR < 10 Will follow Thank you for allowing me to participate in your patient's care. It was a pleasure to see Adam (2) Anuria and oliguria: (3) Hyponatremia: (4) Cardiac arrest: History of Present Illness Reason for Consultation: Anuric acute kidney injury and hyponatremia. Attending Physician: Fadi Boyd DO History of Present Illness Santos Zarco is a 67-year-old gentlemen with a complex past medical history including chronic hyponatremia, cirrhosis of liver, questionable history of hepatocellular carcinoma, adrenal mass and history of atrial fibrillation. Nephrology consult was requested to manage acute kidney injury. Electronic medical records and labs are reviewed in detail during patient's visit. Adam was admitted to the hospital 06/02/2018 with chest pain and shortness of breath . He had hospital admission a week prior to that when he was found to have multiple broken rib. According to the patient he had broken rib related to cough however there was concern that he may had fall which he could not recall and that the broken rib. Was found to a pneumothorax and had chest tube in place. On 06/10/2018 while he is in hospital he had a cardiac arrest when he became unresponsive and eventually resuscitated. The event that lead to cardiac arrest was thought to be a bradycardic episode followed by ventricular fibrillation. He was intubated and transferred to ICU and eventually extubated next day. No history of chronic kidney disease, baseline creatinine has been 0.8-1.0, creatinine was 0.8 on. Found to have a the injury on 06/11/2018 creatinine was 2.5 which rapidly worsened over last 2 days creatinine this morning is 5.0. Over last 8 hours made only 60 cc of urine despite Lasix 80 IV this morning. Blood pressure has been persistently low. Potassium normal but sodium was 125. Currently his seem significantly volume overloaded and have some shortness of breath. Seems confused however occasionally answers currently. Has history of chronic hyponatremia in the setting of cirrhosis of liver and prior heavy alcohol use. Serum sodium usually stays around 128 -131. Previously he was on salt tablet unclear whether he has been taking that last time he was seen in office was in August 1016. Has history of cirrhosis was following with liver transplant center however recently he was taken off of transplant list unclear why. There is concern for hepatocellular carcinoma from an MRI in cannot get lot of information regarding the current management that and the patient's is not that diagnosis. Adma not provide lot of information about that either. Has history of chronic atrial fibrillation previously was on Eliquis which was discontinued of a bleeding episode. Allergies Allergy/AdvReac Type Severity Reaction Status Date / Time No Known Allergies Allergy Verified 06/02/18 10:50 Home Medications Home Medications Medication Instructions Recorded Confirmed Type atenolol 100 mg PO BID 01/06/18 06/02/18 History folic acid 7 mg PO QAM 01/06/18 06/02/18 History furosemide 40 mg PO QAM 01/06/18 06/02/18 History potassium chloride 20 mg PO QID 01/06/18 06/02/18 History umeclidinium-vilanterol [Anoro 1 puff INHALATION QAM 01/06/18 06/02/18 History Ellipta] pantoprazole 40 mg PO QAM 05/15/18 06/02/18 History albuterol sulfate 2 puff INH Q6H PRN 05/21/18 06/02/18 History ergocalciferol (vitamin D2) 50,000 unit PO WK 05/21/18 06/02/18 History [Vitamin D2] oxycodone [OxyContin] 10 mg PO Q12 PRN 06/02/18 06/02/18 History prednisone 10 mg PO QAM 06/02/18 06/02/18 History sodium chloride 2 g PO BID 06/02/18 06/02/18 History spironolactone 50 mg PO BID 06/02/18 06/02/18 History Patient History Medical History Hypertension COPD (chronic obstructive pulmonary disease) CHF (congestive heart failure) Ascites (Acute) Asthmatic bronchitis (Acute) Cellulitis of leg Chest pain (Acute) Claudication (Acute) GI bleed (Resolved) Hyponatremia (Acute) Hypoxia (Acute) Rapid atrial fibrillation (Acute) Surgical History History of thoracentesis Family History Other Family history non-contributory Social History Preferred Language: [place] Communication Ability: Effective Visual Impairment: No Limitations Hearing Ability: Normal Die Forger Required: No Beliefs That Will Affect Care: None marital status: Current Living Situation: Spouse current occupational status: retired Other Information That Helps Us Care for You: No Feels Safe at Home: Yes Safety Concerns: Feels Safe At This Time Smoking Status: Current every day smoker Tobacco Type: cigarettes Cigarettes Per Day: 20 Tobacco Cessation Education Requested by Patient: No Hx Alcohol Use: No Hx Substance Use: No Review of Systems Review of Systems: Detailed review of system was negative except what mentioned in HPI. Physical Exam Physical Exam: GENERAL: Middle-aged male, AAA x 3, ill-appearing, somewhat confused, in mild respiratory distress. HEENT: Atraumatic, normocephalic. NECK: Supple, no JVD, no carotid bruit appreciated. ENT: No sinus tenderness MOUTH and THROAT: Moist oral mucosa, RESPIRATORY: crackles bilaterally CARDIOVASCULAR: S1, S2 normal, rhythm irregular. ABDOMEN: Soft, nontender, positive bowel sound. MUSCULOSKELETAL:. Normal range of motion. SKIN: No skin rash EXTREMITY: 2+ bilateral lower extremity edema NEURO: No gross focal neurological deficit, speech fluent. Results & Data Vital Signs (Past 12 Hours) Vital Signs Temp Pulse Pulse Resp BP Pulse Ox 05/05/19 11:05 87 18 92 06/13/18 10:00 94 H 17 108/63 92 06/13/18 09:00 81 13 100/56 L 90 06/13/18 08:00 36.9 C 93 H 16 104/61 89 L 06/13/18 07:15 87 22 93 06/13/18 07:00 88 38 H 97/57 L 06/13/18 06:00 88 17 101/58 L 91 06/13/18 05:00 86 17 107/59 L 94 06/13/18 04:21 92 H 13 103/49 L 93 06/13/18 04:11 92 H 8 L 97/58 L 93 06/13/18 04:00 36.6 C 91 H 19 103/78 93 06/13/18 03:30 92 H 18 106/60 91 06/13/18 03:01 91 H 15 107/59 L 90 06/13/18 02:00 89 14 106/60 97 06/13/18 01:11 87 16 96/60 L 97 06/13/18 01:00 91 H 15 101/65 94 06/13/18 00:30 84 20 94/60 L 97
--- NOTE | 2018-06-13 12:31 | Progress Note ---
DATE: 06/13/2018 Mr. Zarco was seen with his significant other. He is very confused today. He does not have any focal weakness, but he is very confused and is not oriented to place or time. He is on 3 liters with 92% saturations. His chest tubes put out about 400 mL, which is a tremendous improvement. In addition, I reviewed his x-ray. I do not see much of a pneumothorax. He does not have an air leak. He has not really collected much fluid. He still has multiple rib fractures, of course. He does look like to be a bit fluid overloaded to me. At this point, of course, we will continue the chest tube. I did discuss this in detail with his significant other. He does have rhonchi and is not clearing his secretions as well as I would like and his cough is very poor. NANNETTE
--- NOTE | 2018-06-13 13:32 | Procedure Note ---
Procedure Note Date of Service June 13, 2018 Supervising Physician Co-Signing Physician Notes RIJ dialysis catheter after informed consent using full sterile precautions - cap, mask, gown and gloves. full drape site anesthetized with 1% lidocaine using ultrasound guidance the R IJ identified and using seldinger technique 16 cm dialysis catheter was placed. good flow in both ports sutured in place and tegaderm placed CXR pending Coding
[2018-06-13] MEDS: NSS IV PRN (13:37)
[2018-06-13] MEDS: NOREPINEPHRINE IV PRN (13:37)
[2018-06-13] MEDS ORDERED: SODIUM CHLORIDE 0.9% 1000ML 1,000 ML IV PRN (13:45)
--- NOTE | 2018-06-13 13:48 | XRay Report ---
SINGLE VIEW CHEST CLINICAL HISTORY: Central venous catheter placement. FINDINGS: An AP, portable, upright chest radiograph is compared to study performed earlier the same d ay 06/13/2018 and correlated with chest CT dated 06/06/2018. The examination is degraded by portable rebecca hnique, large body habitus, and patient rotation. A right internal jugular central venous catheter h as been placed. The tip projects over the SVC. A right subclavian central venous catheter a right-silvia ed chest tube are unchanged in position. The heart is enlarged and there is atherosclerotic calcifica tion of the thoracic aorta. There is pulmonary vascular congestion. Emphysema and chronic interstitia l thickening are similar to previous. There is a small right pleural effusion with associated consoli dation. A trace right apical pneumothorax is unchanged from previous. The skeletal structures are ost eopenic. Numerous distracted right-sided rib fractures are again noted. IMPRESSION: 1. A right internal jugular central venous catheter has been placed as above. 2. The remaining lines and tubes are unchanged. 3. Trace right apical pneumothorax persists. 4. Cardiomegaly with evidence of congestive failure. 5. Emphysema. 6. There is a small right pleural effusion with right basilar consolidation. Electronically signed by: José Miguel Butler M.D. 06/13/2018 1:45 PM
[2018-06-13] MEDS ORDERED: HEPARIN SOD (PORCINE) 1000 UNIT/ML 10 ML VIAL ONE (14:12)
--- NOTE | 2018-06-13 14:30 | Ultrasound Report ---
ULTRASOUND KIDNEYS AND BLADDER CLINICAL HISTORY: Anuric acute renal insufficiency. COMPARISON STUDY: Abdominal CT dated 06/03/2018. TECHNIQUE: Real-time, grayscale, and color flow sonography of the kidneys and bladder is performed. I mages are reviewed in the transverse and longitudinal planes. The examination is degraded by large anna dy habitus and lack of patient cooperation. Bandaging material overlies the right flank. FINDINGS: Kidneys: The right kidney was not visualized due to poor acoustic window. The left kidney demonstrate mild cortical atrophy and measures 10.0 x 5.5 x 6.3 cm. There is no left-sided hydronephrosis. No s hadowing left renal calculi are identified. There is no sonographic evidence of mass lesion involving the left kidney. No perinephric fluid is identified. Bladder: The bladder was decompressed around a Killian catheter and could not be assessed. IMPRESSION: 1. Significantly degraded examination due to large body habitus, overlying bandages, and lack of miles ent cooperation. 2. The right kidney was not visualized. 3. The left kidney demonstrates cortical atrophy and is without hydronephrosis. 4. The bladder was decompressed around a Killian catheter and could not be assessed. Electronically signed by: José Miguel Butler M.D. 06/13/2018 2:29 PM
[2018-06-13 15:15] LABS: Ferritin 135.5 ng/ml (8-388)
--- NOTE | 2018-06-13 17:34 | Family Medicine Progress Note ---
Date of Service June 13, 2018 Assessment & Plan (1) Admitted to intensive care unit: Cardiac Arrest Patient in ICU status post cardiac arrest -Coni of arrest rhythm not entirely clear, cardiology on board Dr. Garcia, believes patient will likely need pacer/defibrillator prior to d/c -Holding atenolol and metoprolol status post arrest with preceding bradycardia Pleural Effusion Patient with recurrent hemothorax, had new pneomothorax yesterday after central line placement. Chest tube currently in place continues to drain bloody fluid. Chest X ray today shows small (~8mm pneumothorax) Multiple fractures of ribs: Patient with fractures of ribs 7-10 mid-axillary line, diagnosed by CT during last hospital admission. Possibly secondary to severe coughing in setting of recent PNA/bronchitis. 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 Child Class B, MELD score =11. MRI performed on 01/11/18 with two lesions suspicious for HCC. AFP level on 04/29/18 was 22.8 (relatively stable, was 27.9 on 07/23/17 and 18.9 on 01/18/18). Patient reports that he follows with Dr. Petty for this and has been doing well. Patient with anasarca today. Patient has been on multiple courses of Prednisone over the past month which is most likely contributing to fluid retention. Is not encephalopathic, does not appear to have significant ascites, liver labs are essentially unchanged from prior. Do not suspect decompensated cirrhosis. Weight is 120kg, was 136kg on discharge but patient reports appx 15 pound gain over the last 2 weeks admission. -GI signed off Worsening renal failure -Urine output decreased markedly in last two days creatinine skyrocketed to 5.07 from normal. - Nephrology consulted, Dr. 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 in lungs -Supplemental O2 PRN to maintain sats 92% -DuoNebs q 6 hours -Albuterol q 2 hours PRN -Will not continue steroids at this time PT/OT recommend acute rehab F/E/N -low-salt diet Ppx -currently on hold Code -Full per discussion with patient Dispo -ICU (2) CAD (coronary artery disease): (3) Permanent atrial fibrillation: (4) Cardiac arrest: (5) Hypertension: (6) CHF (congestive heart failure): (7) COPD (chronic obstructive pulmonary disease): (8) History of thoracentesis: (9) Multiple fractures of ribs: Supervising Physician Co-Signing Physician Notes I personally examined the patient and verified all james points of history and exam, discussed case, and agree with decision making with Dr Bond. Somewhat confused today. Making statements that are nonsensical. notes that he has been that way all day, but that at times he will have very lucid thoughts as well. In the midst of discussing the situation with his , he starts saying something unintelligible, then when asked, quickly and accurately reports the score of the hockey game on the TV. Vitals noted, awake somewhat confused, no distress. HEENT normocephalic atraumatic mucous membranes moist. Breathing unlabored no accessory muscle use good effort. Skin shows no rashes no pallor or icterus. Neuro shows no focal deficits. He is undergoing dialysis at the time I am in the room. Cardiac arrestappears to have been a predominantly arrhythmogenic arrest. Continue antiarrhythmics and supportive care. Will likely need ICD/pacer prior to discharge. Appreciate cardiology input. Hypotensionmanage as per ICU. Respiratory failureresolved and extubated Acute renal failuremost likely ATN. Large rising creatinine as well as suboptimal urine output led to the decision to start dialysis. He is tolerating it well. Right-sided effusion/pneumothoraxchest tube management, surgery input appreciated Anemiafollow Otherwise as above Subjective Santos Zarco is confused this morning he is worried about "getting a shot" Un able to converse any further with him. Review of Systems Review of Systems: Unobtainable due to cognitive status Physical Exam Constitutional: + ill appearing and + morbidly obese; no acute distress Eyes: + scleral abnormality (jaundiced) and PERRL Neck: normal visual inspection Respiratory: normal respiratory effort Auscultation: + crackles and + wheezes Cardiovascular: Rate/Rhythm: + abnormal rhythm Heart Sounds: no click, no gallop, no murmur and no cardiac rub Vessels: normal peripheral pulses Gastrointestinal (Abdomen): Inspection/Auscultation: + abdomen distended and normal bowel sounds Percussion/Palpation: + abdomen tender (flank), abdomen soft and + ascites Skin: + jaundice Neurologic: PERRL, EOMI, accommodation nl, no face palsy, no dysarthria Results & Data Vital Signs (Past 12 Hours) Vital Signs Temp Pulse Pulse Resp BP Pulse Ox 06/13/18 17:00 98 H 108/57 L 06/13/18 16:30 37.0 C 90 06/13/18 16:00 37 C 98 H 19 105/54 L 97 06/13/18 15:31 86 15 107/54 L 96 06/13/18 15:16 97 H 14 109/62 100 06/13/18 15:06 20 92 06/13/18 15:01 84 22 110/58 L 94 06/13/18 15:00 88 21 95 06/13/18 14:46 100 H 25 H 96/49 L 92 06/13/18 14:31 86 21 106/54 L 93 06/13/18 14:16 86 18 95/53 L 94 06/13/18 14:01 89 14 102/62 94 06/13/18 14:00 91 H 16 95 06/13/18 13:51 93 H 20 106/57 L 91 06/13/18 13:41 87 13 97/57 L 92 06/13/18 13:31 80 110/51 L 94 06/13/18 13:23 84 19 102/54 L 95 06/13/18 13:21 95 H 17 75/68 L 95 06/13/18 13:11 90 20 104/62 96 06/13/18 13:01 99/59 L 91 06/13/18 13:00 92 H 13 94 06/13/18 12:00 36.9 C 83 17 112/50 L 93 06/13/18 11:05 87 18 92 06/13/18 11:00 99 H 21 107/66 92 06/13/18 10:00 94 H 17 108/63 92 06/13/18 09:00 81 13 100/56 L 90 06/13/18 08:00 36.9 C 93 H 16 104/61 89 L 06/13/18 07:15 87 22 93 06/13/18 07:00 88 38 H 97/57 L 06/13/18 06:00 88 17 101/58 L 91 Resident Activity Tracking Resident Involvement: Resident Care Provided Care Provided: Adult Hospital Medicine (1) Multiple fractures of ribs Encounter type: initial encounter Fracture type: closed Laterality: right Qualified Code(s): S22.41XA - Multiple fractures of ribs, right side, initial encounter for closed fracture
[2018-06-13 19:33] LABS: Partial Thromboplastin Ratio 1.8
[2018-06-13] MEDS: BUDESONIDE 0.25 MG/2 ML VIAL (PULMICORT) NEB SCH (19:34)
[2018-06-13 19:58] LABS: Partial Thromboplastin Time 48.1 Seconds (21.0-31.0)
[2018-06-13 20:07] LABS: Hepatitis B Surface Antibody Non-Immune
[2018-06-13] MEDS: SODIUM CHLORIDE 0.9% 1000ML 1,000 ML IV SCH (21:16)
[2018-06-13] MEDS: Heparin Adult STANDARD Wt-Based Dextrose 5% 25,000 units/500 mL IV SCH (21:17)
[2018-06-14] MEDS: AMIODARONE / D5W 360 MG/200 ML BAG IV SCH ×3 (02:16→22:38)
[2018-06-14 04:45] LABS: Partial Thromboplastin Ratio 1.6; Partial Thromboplastin Time 43.5 Seconds (21.0-31.0)
[2018-06-14 05:00] LABS: BUN Creatinine Ratio 9.9 (10-20); Calcium 7.2 mg/dl (8.5-10.1); Est GFR (African American) 17.9; Est GFR (Non-African American) 15.5; Magnesium 2.2 mg/dl (1.8-2.4); Phosphorus 5.9 mg/dl (2.5-4.9); Potassium 4.1 mmol/L (3.5-5.1)
[2018-06-14 05:14] LABS: Hematocrit (blood only) 20.7 % (42-52); Hemoglobin 7.1 g/dL (14.0-18.0); Mean Corpuscular Hgb Conc 34.3 g/dL (32-36); Mean Corpuscular Volume 92.8 fL (80-100); Mean Platelet Volume 10.1 fL (7.4-10.4); Platelet Count 173 K/uL (130-400); RDW Standard Deviation 60.3 fL (36.4-46.3); Red Blood Count 2.23 M/uL (4.7-6.1); White Blood Count 6.61 K/uL (4.8-10.8)
[2018-06-14 05:20] LABS: Eosinophils # (auto) 0.04 K/uL (0-0.5); Eosinophils % (auto) 0.6 %; Immature Granulocytes # (auto) 0.03 K/uL (0.00-0.02); Immature Granulocytes % (auto) 0.5 %; Lymphocytes # (auto) 1.04 K/uL (1.2-3.4); Lymphocytes % (auto) 15.7 %; Monocytes # (auto) 1.19 K/uL (0.11-0.59); Neutrophils # (auto) 4.31 K/uL (1.4-6.5); Neutrophils % (auto) 65.2 %; Polychromasia 1+
[2018-06-14] MEDS: BUDESONIDE 0.25 MG/2 ML VIAL (PULMICORT) NEB SCH ×2 (06:54→19:49)
[2018-06-14] MEDS: ALBUT/IPRATROP 3MG/0.5MG NEB 3 ML VIAL NEB SCH ×4 (06:54→19:49)
--- NOTE | 2018-06-14 06:55 | XRay Report ---
XR chest 1V portable CLINICAL HISTORY: f/u dyspnea COMPARISON STUDY: 06/13/2018 FINDINGS: Moderate stable cardiomegaly. Mild increase in pulmonary vasculature compared to the prior study. Displaced rib fractures on the right as well as right basilar chest tube are unchanged. Minimal right apical pneumothorax persists. Maximum pleural separation is approximately 4.5 mm. Right-sided chest tube is essentially unchanged in appearance. IMPRESSION: 1. Minimal right apical pneumothorax with a pleural separation of 4.5 mm. 2. Findings of mild congestive failure slightly increased in prominence in the prior study. 3. Unchanged displaced right-sided rib fractures with a right basilar chest tube. The above report was generated using voice recognition software. It may contain grammatical, syntax or spelling errors. Electronically signed by: Samson Carlton M.D. 06/14/2018 6:54 AM
[2018-06-14] MEDS: POLYETHYLENE (MIRALAX) 17 GM PACK PO SCH (07:45)
[2018-06-14] MEDS: DOCUSATE SODIUM 100 MG CAP PO SCH ×2 (07:46→20:27)
[2018-06-14] MEDS: LIDOCAINE 5% 1 PATCH TD SCH (07:46)
[2018-06-14] MEDS: SENNA 8.6 MG TAB PO SCH (07:46)
[2018-06-14] MEDS: FAMOTIDINE 20 MG TAB OG SCH (07:46)
--- NOTE | 2018-06-14 08:11 | Surgery Progress Note ---
Date of Service June 14, 2018 Assessment & Plan (1) Pleural effusion, right: -pt. is s/p thoracentesis and CT on right due to pneumothorax -cultures are noted to be (-) and cytology (-) for malignancy -keep CT in place due to drainage amounts Subjective pt. confused and cannot offer any meaningful subjective data. Discussed with RN--chest tube drained about 400 cc last 24 hours. Physical Exam Respiratory: does not use accessory muscles BS are decrease at bases CT does not appear to have air leak at this time Results & Data Vital Signs (Past 12 Hours) Vital Signs Temp Pulse Pulse Resp BP Pulse Ox 06/14/18 06:54 94 H 18 99 06/14/18 06:00 86 15 95/54 L 97 06/14/18 05:00 91 H 24 94/60 L 95 06/14/18 04:30 86 16 92/58 L 98 06/14/18 04:00 36.8 C 84 20 117/59 L 100 06/14/18 03:31 85 14 84/42 L 100 06/14/18 03:27 87 13 80/44 L 99 06/14/18 03:16 81 13 75/47 L 100 06/14/18 03:00 90 20 102/50 L 99 06/14/18 02:30 95 H 19 100/56 L 99 06/14/18 02:00 93 H 23 97/50 L 98 06/14/18 01:30 95 H 25 H 97 06/14/18 01:00 90 13 90/48 L 96 06/14/18 00:00 36.9 C 105 H 15 109/51 L 100 06/13/18 23:00 99 H 24 94/51 L 97 06/13/18 22:00 94 H 17 100/55 L 94 06/13/18 21:00 109 H 18 89/59 L 93 06/13/18 20:30 107 H 17 115/54 L 96
[2018-06-14 09:02] LABS: iSTAT Allen Test Pass; iSTAT Arterial Blood Gas HCO3 28 meg/L (19-24); iSTAT Arterial Blood Gas pCO2 41 mmHg (35-46); iSTAT Arterial Blood Gas pH 7.44 (7.35-7.45); iSTAT Carbon Dioxide 29 mEq/l (24-31); iSTAT Site L Radial
--- NOTE | 2018-06-14 09:14 | Nephrology Progress Note ---
Date of Service June 14, 2018 Assessment & Plan (1) Acute kidney injury: -- Consistent with ischemic ATN -- First HD treatment provided yesterday via non tunneled catheter -- Killian to gravity -- Urine output remains low with high obligatory intake -- Document strict I/O's -- Plan 2nd HD treatment today, orders entered into EMR and discussed with HD nurse disease intervention specialist -- Additional 1-2 L UF as tolerated -- Levo to maintain MAP >65 -- Repeat metabolic profile tomorrow AM -- Medications appropriately dosed for kidney function (2) Hyponatremia: -- Hypervolemic -- Poor solute intake, high obligatory fluid intake (3) Cardiac arrest: (4) Hemothorax: -- Hgb remains <8 -- PRBC transfusion support can be provided with HD as needed (5) CHF (congestive heart failure): (6) Permanent atrial fibrillation: (7) Cirrhosis: -- Prognosis guarded (8) Right rib fracture: (9) Pleural effusion, right: Marty Graham remains delirious. 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 He continues to hallucinate. He denies any pain. He denied any dyspnea. Afebrile overnight. BP acceptable on levophed gtt. Urine output remains <20 ml/hr. 400 ml out from chest tube overnight. Tolerated HD yesterday for net UF 2 L. Review of Systems Review of Systems: Unobtainable due to cognitive status Physical Exam Constitutional: + ill appearing, + obese and + edematous Eyes: no scleral abnormality and no corneal abnormality ENMT: Mouth: no oral mucosal abnormality and oral mucous membranes not dry Neck: normal visual inspection and trachea midline RIJ HD catheter Respiratory: + tachypneic; no respiratory distress Auscultation: + rhonchi Cardiovascular: Rate/Rhythm: regular rate Heart Sounds: normal S1 and normal S2 Extremities: + edema Gastrointestinal (Abdomen): Inspection/Auscultation: + abdomen distended and normal bowel sounds Percussion/Palpation: abdomen nontender Musculoskeletal: Extremities: no cyanosis and no clubbing Skin: normal turgor; no rashes Neurologic: Motor/Sensory: no tremor and no asterixis Psychiatric: Orientation: + not oriented to place and + not oriented to time Genitourinary: Killian draining yellow urine Results & Data Vital Signs (Past 12 Hours) Vital Signs Temp Pulse Pulse Resp BP Pulse Ox 06/14/18 08:00 90 06/14/18 06:54 94 H 18 99 06/14/18 06:00 86 15 95/54 L 97 06/14/18 05:00 91 H 24 94/60 L 95 06/14/18 04:30 86 16 92/58 L 98 06/14/18 04:00 36.8 C 84 20 117/59 L 100 06/14/18 03:31 85 14 84/42 L 100 06/14/18 03:27 87 13 80/44 L 99 06/14/18 03:16 81 13 75/47 L 100 06/14/18 03:00 90 20 102/50 L 99 06/14/18 02:30 95 H 19 100/56 L 99 06/14/18 02:00 93 H 23 97/50 L 98 06/14/18 01:30 95 H 25 H 97 06/14/18 01:00 90 13 90/48 L 96 06/14/18 00:00 36.9 C 105 H 15 109/51 L 100 06/13/18 23:00 99 H 24 94/51 L 97 06/13/18 22:00 94 H 17 100/55 L 94 Laboratory Results Laboratory Results - last 24 hr 06/13/18 06/13/18 06/13/18 11:31 14:43 19:03 WBC RBC Hgb Hct MCV MCH MCHC RDW Std Deviation RDW Coeff of Zack Plt Count MPV Immature Gran % (Auto) Neut % (Auto) Lymph % (Auto) [place] % (Auto) Eos % (Auto) Baso % (Auto) Immature Gran # (Auto) Neut # (Auto) Lymph # (Auto) [place] # (Auto) Eos # (Auto) Baso # (Auto) Polychromasia APTT 99.4 H* 48.1 H* PTT Ratio 3.7 1.8 Sample Site POC pH POC pCO2 POC pO2 POC HCO3 POC Total CO2 POC Base Excess POC ABG O2 Sat Roderick Test O2 Delivery Device Sodium Potassium Chloride Carbon Dioxide Anion Gap BUN Creatinine Est Cr Clr Drug Dosing Est GFR ( Amer) Est GFR (Non-Af Amer) BUN/Creatinine Ratio Glucose Calcium Phosphorus Magnesium Iron 14 L Transferrin 155 L Transferrin % Sat 6 L Ferritin 135.5 Ammonia Hep Bs Antigen Hep Bs Antibody Hep Bs Antibody, Quant 06/13/18 06/13/18 06/14/18 19:03 19:03 04:24 WBC 6.61 RBC 2.23 L Hgb 7.1 L Hct 20.7 L* MCV 92.8 MCH 31.8 MCHC 34.3 RDW Std Deviation 60.3 H RDW Coeff of Zack 18.0 H Plt Count 173 MPV 10.1 Immature Gran % (Auto) 0.5 Neut % (Auto) 65.2 Lymph % (Auto) 15.7 [place] % (Auto) 18.0 Eos % (Auto) 0.6 Baso % (Auto) 0.0 Immature Gran # (Auto) 0.03 H Neut # (Auto) 4.31 Lymph # (Auto) 1.04 L [place] # (Auto) 1.19 H Eos # (Auto) 0.04 Baso # (Auto) 0.00 Polychromasia 1+ APTT PTT Ratio Sample Site POC pH POC pCO2 POC pO2 POC HCO3 POC Total CO2 POC Base Excess POC ABG O2 Sat Roderick Test O2 Delivery Device Sodium Potassium Chloride Carbon Dioxide Anion Gap BUN Creatinine Est Cr Clr Drug Dosing Est GFR ( Amer) Est GFR (Non-Af Amer) BUN/Creatinine Ratio Glucose Calcium Phosphorus Magnesium Iron Transferrin Transferrin % Sat Ferritin Ammonia Hep Bs Antigen Neg Hep Bs Antibody Non-Immune Hep Bs Antibody, Quant < 3.10 L 06/14/18 06/14/18 06/14/18 04:24 04:24 08:44 WBC RBC Hgb Hct MCV MCH MCHC RDW Std Deviation RDW Coeff of Zack Plt Count MPV Immature Gran % (Auto) Neut % (Auto) Lymph % (Auto) [place] % (Auto) Eos % (Auto) Baso % (Auto) Immature Gran # (Auto) Neut # (Auto) Lymph # (Auto) [place] # (Auto) Eos # (Auto) Baso # (Auto) Polychromasia APTT 43.5 H PTT Ratio 1.6 Sample Site POC pH POC pCO2 POC pO2 POC HCO3 POC Total CO2 POC Base Excess POC ABG O2 Sat Roderick Test O2 Delivery Device Sodium 127 L Potassium 4.1 D Chloride 91 L Carbon Dioxide 30 Anion Gap 6.0 BUN 37 H Creatinine 3.77 H D Est Cr Clr Drug Dosing 25.0 Est GFR ( Amer) 17.9 Est GFR (Non-Af Amer) 15.5 BUN/Creatinine Ratio 9.9 L Glucose 133 H Calcium 7.2 L Phosphorus 5.9 H D Magnesium 2.2 Iron Transferrin Transferrin % Sat Ferritin Ammonia 38.8 H Hep Bs Antigen Hep Bs Antibody Hep Bs Antibody, Quant 06/14/18 08:50 WBC RBC Hgb Hct MCV MCH MCHC RDW Std Deviation RDW Coeff of Zack Plt Count MPV Immature Gran % (Auto) Neut % (Auto) Lymph % (Auto) [place] % (Auto) Eos % (Auto) Baso % (Auto) Immature Gran # (Auto) Neut # (Auto) Lymph # (Auto) [place] # (Auto) Eos # (Auto) Baso # (Auto) Polychromasia APTT PTT Ratio Sample Site L Radial POC pH 7.44 POC pCO2 41 POC pO2 77 L POC HCO3 28 H POC Total CO2 29 POC Base Excess 3.0 H POC ABG O2 Sat 96.0 H Roderick Test Pass O2 Delivery Device Cannula Sodium Potassium Chloride Carbon Dioxide Anion Gap BUN Creatinine Est Cr Clr Drug Dosing Est GFR ( Amer) Est GFR (Non-Af Amer) BUN/Creatinine Ratio Glucose Calcium Phosphorus Magnesium Iron Transferrin Transferrin % Sat Ferritin Ammonia Hep Bs Antigen Hep Bs Antibody Hep Bs Antibody, Quant (1) Cirrhosis Hepatic cirrhosis type: alcoholic cirrhosis Ascites presence: with ascites Qualified Code(s): K70.31 - Alcoholic cirrhosis of liver with ascites (2) Right rib fracture Encounter type: initial encounter Fracture type: closed Rib fracture type: multiple ribs Qualified Code(s): S22.41XA - Multiple fractures of ribs, right side, initial encounter for closed fracture
[2018-06-14 09:25] LABS: Albumin Level 2.3 gm/dl (3.4-5.0); Bilirubin Direct 2.5 mg/dl (0-0.2); Bilirubin,Total 3.5 mg/dl (0.2-1); Total Protein 4.8 gm/dl (6.4-8.2)
[2018-06-14] MEDS ORDERED: SODIUM CHLORIDE 0.9% 1000ML 1,000 ML IV PRN (09:43)
--- NOTE | 2018-06-14 10:07 | Critical Care Progress Note ---
Date of Service June 14, 2018 Assessment & Plan (1) Cardiac arrest: Reason Critically Ill: [id number] male with a past medical history including alcoholic liver cirrhosis with steatohepatitis and HCC, hypertension, COPD, A. fib, and congestive heart failure. He presented to the hospital with increasing shortness of breath in the setting of multiple rib fractures and pleural effusion/hemothorax and has been transferred to the ICU for further care following V. fib and arrest with subsequent ROSC. Neuro - CAM-ICU positive Somnolent, REAL ESTATE ACCOUNTANT discontinued. Pain control with Fentanyl 100mcg IV Q4H PRN Acute Encephalopathy 2/2 hepatic vs hypercarbic vs narcotic accumulation - MRI shows no acute findings - Hyperammonemic. Lactulose titrated to 3-4 BMs per day, ammonia recheck ordered for 72 hours - May have had hydromorphone accumulation while on REAL ESTATE ACCOUNTANT. REAL ESTATE ACCOUNTANT d/jane and converted as above. Cardiac - VFib Arrest with ROSC - Unclear etiology. May have degenerated from bradycardia in context of hypoxemia. Lyme pending. - Cardomyopathy suspect ischemic. Repeat TTE pending. - Cardiology consulted. Will likely need ICD once clinically stable. Allscripts review shows a hx of syncope and given his recent rib fractures question if his admission is due to cardiac syncopal events. - ECG shows no signs of acute ischemia - Requiring norepi for pressure support currently at 0.02mcg/kg/min. Wean to MAP >=65 Permanent Afib - Amiodarone .5mg/min -heparin gtt - Metoprolol/Atenolol held in context of hypotension Respiratory - AHRF: Extubated, weaned to on 3L NC - Repeat CXR shows residual small R pneumothorax unchanged from yesterday. PV congestion but no effusion, PNA ing chest tube - R Pneumothorax on rCT 2/2 line placement vs traumatic/CPR - R chest tube in place draining 400cc serosanginous this morning. Intermittently to suction, intermittent airleak to 1 overnight COPD - Extubated, on NC. Sat >94%, although coarse upper airway sounds today - Albuterol Neb QID ALYSIA - Budesonide .25mg neb BID GI - Alcoholic Cirrhosis with steatohepatitis and HCC - CP Class B, MELD 11 - Follows with [facility] Onc for HCC, stable - Hyperammonemic, lactulose titrated to BMs as above. Constipated (last BM June 02) - Coresafe placed for nutrition. - KUB shows no obstruction RENAL/LYTES - Acute Kidney Failure 2/2 ATN in setting of cardiac arrest. - Hyponatremic, Hyperphosphatemic - Dialysis initiated Cr 3.77 from 5.07. 2.5L diasylate removed today. 133.9kg - I/O 1.4L/990cc via chest tube, .02cc/kg/hr UOP - Killian in place Follow I&Os ENDO - Glucose control adequate. HEME - Normocytic, Normochronic Anemia - Hgb 7.1 today. - Type & Screen ordered. hgb Q8H. +occult stool to be check with next BM - xfusion threshold <7.0g/dL. ID - - Afebrile, low suspicion for PNA at this time Monitor fever curve INTEGUMENTARY - Chest wall bruising without signs of cellulitis at site of rib fxr - Continue to follow - Pressure ulcer prophylaxis. LINES/IV ACCESS - R-IJ Dialysis Catheter (Double Lumen) R Subclavian central line, triple lumen DVT PROPHYLAXIS - Heparin gtt as above SCD Thank you for allowing us to be part of this patient's care. Please refer to Dr. Whitaker's documentation for any further recommendations. Supervising Physician Co-Signing Physician Notes Reason Critically Ill: 67-year-old male status post cardiac arrest PLAN: Neuro: Acute encephalopathy:Hepatic versus metabolic versus hypercarbia versus narcotic induced - Hyperammonemia Recheck in 72 hours - We will start lactulose to 3-4 bowel movements daily - MRI brain rule out anoxic injury given cardiac arrest Pain: - REAL ESTATE ACCOUNTANT in place, basal rate discontinued yesterday - Patient at risk for metabolite accumulation given renal insufficiency - 100 mcg fentanyl every 4 hours as needed pain Resp: Apical pneumothorax right: Improving Pleural effusion right Multiple rib fractures: Right 7-10 - Over 500 mL output of chest tube in last 24 hours - ABG reviewed - Thoracics following chest tube COPD:Stable CV: Status post cardiac arrest - Suspected ventricular fibrillation with primary arrhythmia as cause Permanent atrial fibrillation - On amiodarone Half milligram per kilo per minute - Heparin infusion Cardiomyopathy: Ischemic - Decreased EF, will defer to cardiology for placement of pacemaker versus AICD. Bradycardic episode: will check Lyme Hypotension: Related to possible cardiomyopathy - On Levophed - random cortisol: Adequate response Fluids/Renal: Acute kidney injury: - Anticipate second round of dialysis today ID: Finished 5 days of Rocephin - Discontinue Killian today bladder scan GI/Nutrition: Cirrhosis:Presumptive alcoholic - Corsafe for enteral access - Will consider tube feedings after that Constipation since June 02: Lactulose should cover constipation - KUB Heme: Anemia of chronic disease: Worsening - Order type and screen - H&H q. 8 hours x 3 - Guaiac stool DVT prophylaxis: heparin ggt Endocrine: ICU hyperglycemia protocol Vascular access: Right subclavian triple-lumen, Right internal jugular dialysis catheter Code Status: Full code I have personally spent 85 minutes of critical care time in the direct management of this patient. This is a life/limb threatening event. This includes time spent evaluating patient, direct bedside care, chart review, placing orders, interpretation of diagnostic studies, discussion with consultants, patient, and/or family members regarding treatment decisions, as well as other required patient management activities. This time is exclusive of all separately billable procedures, and teaching time and separate from and in addition to any other critical care service time. Dr. King was resident physician during care of patient. I separately evaluated patient for james portions of the history and the exam. I was present during the critical portion of medical decision making, and I discussed the case with the resident. I generally agree with the findings and plan. Subjective Mr. Zaroc if confused today. He makes eye contact, but thought process is non linear. His is present at bedside. He denies pain at time of visit. Review of Systems Review of Systems: Unobtainable due to cognitive status Physical Exam Physical Exam: General: Alert oriented to name, only. Appears ill, jaundiced. HEENT: Atraumatic, normocephalic. PERLAA. Pulm: Diminished air movement. Diffuse crackles bilaterally, expiratory wheeze appreciated. Mild rhonchi. Mild increased work of breathing. Symmetrical chest rise. Cardiac: RRR, -mrg. Radial pulses intact and symmetrical. Abdominal: Obese, soft. BS present. Large hematoma at R flank at ribs 8-10. Supraumbilical hematoma present. Ext: Skin warm, dry. Pitting edema in lower extremities bilaterally. Cap refill ~2 seconds. Results & Data Vital Signs (Past 12 Hours) Vital Signs Temp Pulse Pulse Resp BP Pulse Ox 06/14/18 08:00 90 06/14/18 06:54 94 H 18 99 06/14/18 06:00 86 15 95/54 L 97 06/14/18 05:00 91 H 24 94/60 L 95 06/14/18 04:30 86 16 92/58 L 98 06/14/18 04:00 36.8 C 84 20 117/59 L 100 06/14/18 03:31 85 14 84/42 L 100 06/14/18 03:27 87 13 80/44 L 99 06/14/18 03:16 81 13 75/47 L 100 06/14/18 03:00 90 20 102/50 L 99 06/14/18 02:30 95 H 19 100/56 L 99 06/14/18 02:00 93 H 23 97/50 L 98 06/14/18 01:30 95 H 25 H 97 06/14/18 01:00 90 13 90/48 L 96 06/14/18 00:00 36.9 C 105 H 15 109/51 L 100 06/13/18 23:00 99 H 24 94/51 L 97 06/13/18 22:00 94 H 17 100/55 L 94 Laboratory Results 06/14/18 06/14/18 06/14/18 Range/Units 18:05 10:32 10:32 WBC (4.8-10.8) K/uL RBC (4.7-6.1) M/uL Hgb (14.0-18.0) g/dL Hct (42-52) % MCV (80-100) fL MCH (25-34) pg MCHC (32-36) g/dL RDW Std Deviation (36.4-46.3) fL RDW Coeff of Zack (11.5-14.5) % Plt Count (130-400) K/uL MPV (7.4-10.4) fL Immature Gran % (Auto) % Neut % (Auto) % Lymph % (Auto) % Crockett % (Auto) % Eos % (Auto) % Baso % (Auto) % Immature Gran # (Auto) (0.00-0.02) K/uL Neut # (Auto) (1.4-6.5) K/uL Lymph # (Auto) (1.2-3.4) K/uL Crockett # (Auto) (0.11-0.59) K/uL Eos # (Auto) (0-0.5) K/uL Baso # (Auto) (0-0.2) K/uL Polychromasia PT 14.1 H (9.0-12.0) Seconds INR 1.4 H (0.9-1.1) APTT > 139.0 H* 82.6 H* (21.0-31.0) Seconds PTT Ratio > 5.1 3.0 Sample Site POC pH (7.35-7.45) POC pCO2 (35-46) mmHg POC pO2 (80-95) mmHg POC HCO3 (19-24) sabrina/L POC Total CO2 (24-31) mEq/l POC Base Excess (-9-1.8) sabrina/L POC ABG O2 Sat (90-95) % Roderick Test O2 Delivery Device Sodium (136-145) mmol/L Potassium (3.5-5.1) mmol/L Chloride (98-107) mmol/L Carbon Dioxide (21-32) mmol/L Anion Gap (3-11) BUN (7-18) mg/dl Creatinine (0.6-1.4) mg/dl Est Cr Clr Drug Dosing ml/min Est GFR ( Amer) Est GFR (Non-Af Amer) BUN/Creatinine Ratio (10-20) Glucose (70-99) mg/dl Calcium (8.5-10.1) mg/dl Phosphorus (2.5-4.9) mg/dl Magnesium (1.8-2.4) mg/dl Total Bilirubin (0.2-1) mg/dl Direct Bilirubin (0-0.2) mg/dl AST (15-37) U/L ALT (12-78) U/L Alkaline Phosphatase (45-117) U/L Ammonia (11-32) umol/L Total Protein (6.4-8.2) gm/dl Albumin (3.4-5.0) gm/dl Random Cortisol mcg/dl Lyme Disease IgG Ab (Negative) Lyme Disease IgM Ab (Negative) Hep Bs Antigen (Neg) Hep Bs Antibody Hep Bs Antibody, Quant (>or=10mIU/mL Immune) mIU/mL Blood Type A Positive Antibody Screen NEGATIVE 06/14/18 06/14/18 06/14/18 Range/Units 08:50 08:44 08:44 WBC (4.8-10.8) K/uL RBC (4.7-6.1) M/uL Hgb (14.0-18.0) g/dL Hct (42-52) % MCV (80-100) fL MCH (25-34) pg MCHC (32-36) g/dL RDW Std Deviation (36.4-46.3) fL RDW Coeff of Zack (11.5-14.5) % Plt Count (130-400) K/uL MPV (7.4-10.4) fL Immature Gran % (Auto) % Neut % (Auto) % Lymph % (Auto) % Crockett % (Auto) % Eos % (Auto) % Baso % (Auto) % Immature Gran # (Auto) (0.00-0.02) K/uL Neut # (Auto) (1.4-6.5) K/uL Lymph # (Auto) (1.2-3.4) K/uL Crockett # (Auto) (0.11-0.59) K/uL Eos # (Auto) (0-0.5) K/uL Baso # (Auto) (0-0.2) K/uL Polychromasia PT (9.0-12.0) Seconds INR (0.9-1.1) APTT (21.0-31.0) Seconds PTT Ratio Sample Site L Radial POC pH 7.44 (7.35-7.45) POC pCO2 41 (35-46) mmHg POC pO2 77 L (80-95) mmHg POC HCO3 28 H (19-24) sabrina/L POC Total CO2 29 (24-31) mEq/l POC Base Excess 3.0 H (-9-1.8) sabrina/L POC ABG O2 Sat 96.0 H (90-95) % Roderick Test Pass O2 Delivery Device Cannula Sodium (136-145) mmol/L Potassium (3.5-5.1) mmol/L Chloride (98-107) mmol/L Carbon Dioxide (21-32) mmol/L Anion Gap (3-11) BUN (7-18) mg/dl Creatinine (0.6-1.4) mg/dl Est Cr Clr Drug Dosing ml/min Est GFR ( Amer) Est GFR (Non-Af Amer) BUN/Creatinine Ratio (10-20) Glucose (70-99) mg/dl Calcium (8.5-10.1) mg/dl Phosphorus (2.5-4.9) mg/dl Magnesium (1.8-2.4) mg/dl Total Bilirubin (0.2-1) mg/dl Direct Bilirubin (0-0.2) mg/dl AST (15-37) U/L ALT (12-78) U/L Alkaline Phosphatase (45-117) U/L Ammonia (11-32) umol/L Total Protein (6.4-8.2) gm/dl Albumin (3.4-5.0) gm/dl Random Cortisol 34.51 mcg/dl Lyme Disease IgG Ab Negative (Negative) Lyme Disease IgM Ab Negative (Negative) Hep Bs Antigen (Neg) Hep Bs Antibody Hep Bs Antibody, Quant (>or=10mIU/mL Immune) mIU/mL Blood Type Antibody Screen 06/14/18 06/14/18 06/14/18 Range/Units 08:44 08:44 04:24 WBC (4.8-10.8) K/uL RBC (4.7-6.1) M/uL Hgb (14.0-18.0) g/dL Hct (42-52) % MCV (80-100) fL MCH (25-34) pg MCHC (32-36) g/dL RDW Std Deviation (36.4-46.3) fL RDW Coeff of Zack (11.5-14.5) % Plt Count (130-400) K/uL MPV (7.4-10.4) fL Immature Gran % (Auto) % Neut % (Auto) % Lymph % (Auto) % Crockett % (Auto) % Eos % (Auto) % Baso % (Auto) % Immature Gran # (Auto) (0.00-0.02) K/uL Neut # (Auto) (1.4-6.5) K/uL Lymph # (Auto) (1.2-3.4) K/uL Crockett # (Auto) (0.11-0.59) K/uL Eos # (Auto) (0-0.5) K/uL Baso # (Auto) (0-0.2) K/uL Polychromasia PT (9.0-12.0) Seconds INR (0.9-1.1) APTT 43.5 H (21.0-31.0) Seconds PTT Ratio 1.6 Sample Site POC pH (7.35-7.45) POC pCO2 (35-46) mmHg POC pO2 (80-95) mmHg POC HCO3 (19-24) sabrina/L POC Total CO2 (24-31) mEq/l POC Base Excess (-9-1.8) sabrina/L POC ABG O2 Sat (90-95) % Roderick Test O2 Delivery Device Sodium (136-145) mmol/L Potassium (3.5-5.1) mmol/L Chloride (98-107) mmol/L Carbon Dioxide (21-32) mmol/L Anion Gap (3-11) BUN (7-18) mg/dl Creatinine (0.6-1.4) mg/dl Est Cr Clr Drug Dosing ml/min Est GFR ( Amer) Est GFR (Non-Af Amer) BUN/Creatinine Ratio (10-20) Glucose (70-99) mg/dl Calcium (8.5-10.1) mg/dl Phosphorus (2.5-4.9) mg/dl Magnesium (1.8-2.4) mg/dl Total Bilirubin 3.5 H (0.2-1) mg/dl Direct Bilirubin 2.5 H (0-0.2) mg/dl AST 59 H (15-37) U/L ALT 49 (12-78) U/L Alkaline Phosphatase 128 H (45-117) U/L Ammonia 38.8 H (11-32) umol/L Total Protein 4.8 L (6.4-8.2) gm/dl Albumin 2.3 L (3.4-5.0) gm/dl Random Cortisol mcg/dl Lyme Disease IgG Ab (Negative) Lyme Disease IgM Ab (Negative) Hep Bs Antigen (Neg) Hep Bs Antibody Hep Bs Antibody, Quant (>or=10mIU/mL Immune) mIU/mL Blood Type Antibody Screen 06/14/18 06/14/18 06/13/18 Range/Units 04:24 04:24 19:03 WBC 6.61 (4.8-10.8) K/uL RBC 2.23 L (4.7-6.1) M/uL Hgb 7.1 L (14.0-18.0) g/dL Hct 20.7 L* (42-52) % MCV 92.8 (80-100) fL MCH 31.8 (25-34) pg MCHC 34.3 (32-36) g/dL RDW Std Deviation 60.3 H (36.4-46.3) fL RDW Coeff of Zack 18.0 H (11.5-14.5) % Plt Count 173 (130-400) K/uL MPV 10.1 (7.4-10.4) fL Immature Gran % (Auto) 0.5 % Neut % (Auto) 65.2 % Lymph % (Auto) 15.7 % Crockett % (Auto) 18.0 % Eos % (Auto) 0.6 % Baso % (Auto) 0.0 % Immature Gran # (Auto) 0.03 H (0.00-0.02) K/uL Neut # (Auto) 4.31 (1.4-6.5) K/uL Lymph # (Auto) 1.04 L (1.2-3.4) K/uL Crockett # (Auto) 1.19 H (0.11-0.59) K/uL Eos # (Auto) 0.04 (0-0.5) K/uL Baso # (Auto) 0.00 (0-0.2) K/uL Polychromasia 1+ PT (9.0-12.0) Seconds INR (0.9-1.1) APTT (21.0-31.0) Seconds PTT Ratio Sample Site POC pH (7.35-7.45) POC pCO2 (35-46) mmHg POC pO2 (80-95) mmHg POC HCO3 (19-24) sabrina/L POC Total CO2 (24-31) mEq/l POC Base Excess (-9-1.8) sabrina/L POC ABG O2 Sat (90-95) % Roderick Test O2 Delivery Device Sodium 127 L (136-145) mmol/L Potassium 4.1 D (3.5-5.1) mmol/L Chloride 91 L (98-107) mmol/L Carbon Dioxide 30 (21-32) mmol/L Anion Gap 6.0 (3-11) BUN 37 H (7-18) mg/dl Creatinine 3.77 H D (0.6-1.4) mg/dl Est Cr Clr Drug Dosing 25.0 ml/min Est GFR ( Amer) 17.9 Est GFR (Non-Af Amer) 15.5 BUN/Creatinine Ratio 9.9 L (10-20) Glucose 133 H (70-99) mg/dl Calcium 7.2 L (8.5-10.1) mg/dl Phosphorus 5.9 H D (2.5-4.9) mg/dl Magnesium 2.2 (1.8-2.4) mg/dl Total Bilirubin (0.2-1) mg/dl Direct Bilirubin (0-0.2) mg/dl AST (15-37) U/L ALT (12-78) U/L Alkaline Phosphatase (45-117) U/L Ammonia (11-32) umol/L Total Protein (6.4-8.2) gm/dl Albumin (3.4-5.0) gm/dl Random Cortisol mcg/dl Lyme Disease IgG Ab (Negative) Lyme Disease IgM Ab (Negative) Hep Bs Antigen Neg (Neg) Hep Bs Antibody Hep Bs Antibody, Quant (>or=10mIU/mL Immune) mIU/mL Blood Type Antibody Screen 06/13/18 06/13/18 Range/Units 19:03 19:03 WBC (4.8-10.8) K/uL RBC (4.7-6.1) M/uL Hgb (14.0-18.0) g/dL Hct (42-52) % MCV (80-100) fL MCH (25-34) pg MCHC (32-36) g/dL RDW Std Deviation (36.4-46.3) fL RDW Coeff of Zack (11.5-14.5) % Plt Count (130-400) K/uL MPV (7.4-10.4) fL Immature Gran % (Auto) % Neut % (Auto) % Lymph % (Auto) % Crockett % (Auto) % Eos % (Auto) % Baso % (Auto) % Immature Gran # (Auto) (0.00-0.02) K/uL Neut # (Auto) (1.4-6.5) K/uL Lymph # (Auto) (1.2-3.4) K/uL Crockett # (Auto) (0.11-0.59) K/uL Eos # (Auto) (0-0.5) K/uL Baso # (Auto) (0-0.2) K/uL Polychromasia PT (9.0-12.0) Seconds INR (0.9-1.1) APTT 48.1 H* (21.0-31.0) Seconds PTT Ratio 1.8 Sample Site POC pH (7.35-7.45) POC pCO2 (35-46) mmHg POC pO2 (80-95) mmHg POC HCO3 (19-24) sabrina/L POC Total CO2 (24-31) mEq/l POC Base Excess (-9-1.8) sabrina/L POC ABG O2 Sat (90-95) % Roderick Test O2 Delivery Device Sodium (136-145) mmol/L Potassium (3.5-5.1) mmol/L Chloride (98-107) mmol/L Carbon Dioxide (21-32) mmol/L Anion Gap (3-11) BUN (7-18) mg/dl Creatinine (0.6-1.4) mg/dl Est Cr Clr Drug Dosing ml/min Est GFR ( Amer) Est GFR (Non-Af Amer) BUN/Creatinine Ratio (10-20) Glucose (70-99) mg/dl Calcium (8.5-10.1) mg/dl Phosphorus (2.5-4.9) mg/dl Magnesium (1.8-2.4) mg/dl Total Bilirubin (0.2-1) mg/dl Direct Bilirubin (0-0.2) mg/dl AST (15-37) U/L ALT (12-78) U/L Alkaline Phosphatase (45-117) U/L Ammonia (11-32) umol/L Total Protein (6.4-8.2) gm/dl Albumin (3.4-5.0) gm/dl Random Cortisol mcg/dl Lyme Disease IgG Ab (Negative) Lyme Disease IgM Ab (Negative) Hep Bs Antigen (Neg) Hep Bs Antibody Non-Immune Hep Bs Antibody, Quant < 3.10 L (>or=10mIU/mL Immune) mIU/mL Blood Type Antibody Screen Medications Administered Current Inpatient Medications Albuterol (Duoneb) 3 ml NEB QIDR ALYSIA Stop: 07/02/18 15:59 Last Admin: 06/14/18 15:25 Dose: 3 ml Documented by: Budesonide (Pulmicort Respules) 0.25 mg NEB BIDR [facility] Stop: 07/09/18 19:59 Last Admin: 06/14/18 06:54 Dose: 0.25 mg Documented by: Budesonide/Formoterol Fumarate (Symbicort 160mcg/4.5mcg) 2 puffs INH BID [facility] Stop: 07/05/18 08:59 Last Admin: 06/09/18 20:16 Dose: 2 puffs Documented by: Docusate Sodium (Colace) 100 mg PO BID [facility] Stop: 07/13/18 08:59 Last Admin: 06/14/18 07:46 Dose: 100 mg Documented by: Famotidine (Pepcid) 20 mg OG QAM [facility] Stop: 07/10/18 08:59 Last Admin: 06/14/18 07:46 Dose: 20 mg Documented by: Fentanyl Citrate (Fentanyl Citrate) 100 mcg IV Q4H PRN PRN Reason: Pain Stop: 06/28/18 11:54 Last Admin: 06/14/18 12:36 Dose: 100 mcg Documented by: Heparin Sodium (Beef Lung) (Heparin Sod 10 Unit/Ml Flush) 5 ml FLUSH PRN PRN PRN Reason: Flush Stop: 07/12/18 00:36 Sodium Chloride (Nss) 250 mls @ 15 mls/hr IV .[id number] PRN PRN Reason: For Transfusion Stop: 07/06/18 15:28 Sodium Chloride (Nss) 250 mls @ 15 mls/hr IV .[id number] PRN PRN Reason: For Transfusion Stop: 07/10/18 05:43 Amiodarone HCl/Dextrose (Nexterone / D5w) 360 mg in 200 mls @ 16.667 mls/hr IV .Q12H [facility] Stop: 07/10/18 06:59 Last Admin: 06/14/18 13:06 Dose: 0.5 mg/min, 16.7 mls/hr Documented by: Heparin Sodium/Dextrose (Heparin Sodium/Dextrose) 25,000 units in 500 mls @ 17 mls/hr IV .Q24H [facility]; Protocol Stop: 07/10/18 16:29 Last Titration: 06/14/18 12:00 Dose: 850 units/hr, 17 mls/hr Documented by: Norepinephrine Bitartrate 8 mg (/ Sodium Chloride) 258 mls @ 5.04 mls/hr IV .Q24H PRN; Protocol PRN Reason: TITRATE Stop: 07/11/18 09:03 Last Titration: 06/14/18 14:27 Dose: 0.02 mcg/kg/min, 5 mls/hr Documented by: Lactulose (Chronulac) 30 gm PO Q4H PRN PRN Reason: encephalopathy Stop: 07/14/18 09:59 Last Admin: 06/14/18 18:28 Dose: 30 gm Documented by: Lidocaine (Lidoderm 5%) [facility] [place]: 07/02/18 16:29 Last Admin: 06/14/18 07:46 Dose: 1 patch Documented by: Miscellaneous (Remove Lidoderm Patch) 1 ea N/A HS [facility] Stop: 07/11/18 20:59 Last Admin: 06/13/18 21:17 Dose: 1 ea Documented by: Nutritional Formula (Peptamen Intense Vhp) 1,000 ml GT UD [facility]; Protocol Stop: 07/14/18 14:44 Last Admin: 06/14/18 16:45 Dose: 1,000 ml Documented by: Ondansetron HCl (Zofran) 4 mg IV Q6H PRN PRN Reason: Nausea Stop: 07/02/18 15:53 Polyethylene Glycol (Miralax Powder Packet) 17 gm PO DAILY [facility] Stop: 07/11/18 08:59 Last Admin: 06/14/18 07:45 Dose: 17 gm Documented by: Sennosides (Senokot) 17.2 mg PO QAM [facility] Stop: 07/13/18 08:59 Last Admin: 06/14/18 07:46 Dose: 17.2 mg Documented by: Resident Activity Tracking Resident Involvement: Resident Care Provided Care Provided: Adult Hospital Medicine
[2018-06-14] MEDS ORDERED: fentaNYL citrate 100 MCG/2 ML SYRINGE IV PRN (10:30)
--- NOTE | 2018-06-14 10:50 | Family Medicine Progress Note ---
Date of Service June 14, 2018 Assessment & Plan (1) Admitted to intensive care unit: Patient in ICU status post cardiac arrest Cardiac Arrest secondary to ventricular dysrhythmia -Coni of arrest rhythm not entirely clear, cardiology on board Dr. Garcia, believes patient will likely need pacer/defibrillator prior to d/c -Holding atenolol and metoprolol status post arrest with preceding bradycardia -On amiodarone drip for concern of V fib noted on moniter Permanent Atrial fibrillation -Not on AC due to h/o cirrhosis and elevated INR Mild elevation of Troponin/LHC proven CAD -Likely demand ischemia Cardiogenic Shock - Requiring pressors - on low dose levaphed CHF with right side pleural effusion Dialysis should help with fluid management Respiratory failure s/p arrest Now extubated Supplemental O2 PRN to maintain sats 92% COPD (chronic obstructive pulmonary disease): Continue home inhalers - Dulera Budesonide nebs DuoNebs q 6 hours Albuterol q 2 hours PRN Hemothorax secondary to trama Patient with recurrent hemothorax, Chest tube currently in place continues to drain bloody fluid. had new pneumothorax yesterday after central line placement. Chest X ray today shows very small shrinking pneumothorax (~4.5 mm) Multiple fractures of ribs: Patient with fractures of ribs 7-10 mid-axillary line, diagnosed by CT during last hospital admission. secondary to severe coughing in setting of recent PNA/bronchitis Versus previous episodes of arrhythmia causing syncope Pain well controlled today, on HEALTH CARE COORDINATOR Acute renal failure - Ischemic ATN -Dialysis started through [facility]IJ central line, creatinine and electrolytes improved -- Killian to gravity -- Urine output remains low with high obligatory intake -- Document strict I/O's -- Plan 2nd HD treatment today, orders entered into EMR and discussed with HD nurse converting technician -- Additional 1-2 L UF as tolerated -- Levo to maintain MAP >65 -- Repeat metabolic profile tomorrow AM -- Medications appropriately dosed for kidney function Hyponatremia: -- Hypervolemic Poor solute intake, high obligatory fluid intake Acute blood loss anemia secondary to hemothorax : -- Hgb remains <8 PRBC transfusion support can be provided with HD as needed Cirrhosis: Patient with history of liver cirrhosis thought to be secondary to EtOH abuse. Child Class B, MELD score =11. Anasarca. Patient has been on multiple courses of Prednisone over the past month which is most likely contributing to fluid retention. No sign of decompensated cirrhosis. HCC MRI performed on 01/11/18 with two lesions suspicious for HCC. AFP level on 04/29/18 was 22.8 (relatively stable, was 27.9 on 07/23/17 and 18.9 on 01/18/18). Patient reports that he follows with Dr. Petty for this and has been doing well. PT/OT recommend acute rehab F/E/N -low-salt diet Ppx -currently on hold Code -Full per discussion with patient Dispo -ICU Supervising Physician Co-Signing Physician Notes Resident Physician Supervision Note: I independently interviewed and examined the patient and verified the james history and physical, reviewed labs and image studies, discussed the case with the resident Dr. Bond and agree with the findings and care plan. Subjective He remains confused today, he is unable to converse in any meaningful way. Review of Systems Review of Systems: Unobtainable due to cognitive status Physical Exam Constitutional: + ill appearing and + morbidly obese; no acute distress Eyes: + scleral abnormality (jaundiced) and PERRL Neck: normal visual inspection Respiratory: normal respiratory effort Auscultation: + crackles and + wheezes Cardiovascular: Rate/Rhythm: + abnormal rhythm Heart Sounds: no click, no gallop, no murmur and no cardiac rub Vessels: normal peripheral pulses Gastrointestinal (Abdomen): Inspection/Auscultation: + abdomen distended and normal bowel sounds Percussion/Palpation: + abdomen tender (flank), abdomen soft and + ascites Skin: + jaundice Neurologic: PERRL, EOMI, accommodation nl, no face palsy, no dysarthria Results & Data Vital Signs (Past 12 Hours) Vital Signs Temp Pulse Pulse Resp BP Pulse Ox 06/14/18 08:00 90 06/14/18 06:54 94 H 18 99 06/14/18 06:00 86 15 95/54 L 97 06/14/18 05:00 91 H 24 94/60 L 95 06/14/18 04:30 86 16 92/58 L 98 06/14/18 04:00 36.8 C 84 20 117/59 L 100 06/14/18 03:31 85 14 84/42 L 100 06/14/18 03:27 87 13 80/44 L 99 06/14/18 03:16 81 13 75/47 L 100 06/14/18 03:00 90 20 102/50 L 99 06/14/18 02:30 95 H 19 100/56 L 99 06/14/18 02:00 93 H 23 97/50 L 98 06/14/18 01:30 95 H 25 H 97 06/14/18 01:00 90 13 90/48 L 96 06/14/18 00:00 36.9 C 105 H 15 109/51 L 100 06/13/18 23:00 99 H 24 94/51 L 97 Resident Activity Tracking Resident Involvement: Resident Care Provided Care Provided: Adult [facility]
[2018-06-14 11:04] LABS: INR 1.4 (0.9-1.1); Prothrombin Time 14.1 Seconds (9.0-12.0)
[2018-06-14 11:22] LABS: Partial Thromboplastin Time 82.6 Seconds (21.0-31.0)
--- NOTE | 2018-06-14 12:30 | Magnetic Resonance Report ---
MRI OF THE BRAIN WITHOUT CONTRAST CLINICAL HISTORY: Acute change in mental status status post cardiac arrest. Evaluate for ischemic bra in injury COMPARISON STUDY: June 2010 FINDINGS: Sagittal T1, axial diffusion, proton density and T2 weighted axial, coronal FLAIR, and axial T1-weigh puneet images were acquired. No intra or extra-axial mass lesions are visualized Axial diffusion-weighted images reveal no evidence of acute or subacute infarction. There is mild ventricular dilatation, likely secondary to volume loss. Proton density T2-weighted and FLAIR images reveal scattered foci of increased T2 signal within the w nichelle matter, likely on a small vessel basis. There are no abnormal flow voids. IMPRESSION: 1. No acute intracranial findings 2. No evidence of intracranial mass 3. No evidence of acute or subacute infarction Electronically signed by: Rolo Guillen M.D. 06/14/2018 12:28 PM
--- NOTE | 2018-06-14 12:33 | Cardiology Progress Note ---
Date of Service June 14, 2018 Assessment & Plan (1) Cardiac arrest: Although the data is a little hard to interpret and there is a lot of artifact on telemetry he did clearly have ventricular fibrillation and required cardioversion which did convert his rhythm successfully. Leading up to it there is a suggestion that he had bradycardia although there is a lot of artifact and he was off the monitor for part of the time so it is hard to tell. I am bothered by the fact that he seems to have had a lot of injuries lately and a history of syncope and perhaps he has a history of bradycardia with falling, it is unlikely he has a history of ventricular fibrillation with spontaneous termination. He did not have pre-existing significant coronary artery disease and based on his electrocardiogram this does not appear to be an acute coronary event. Enzymes were not done and I ordered them. I suspect therefore this was a primary arrhythmia, I think he will need some sort of device whether it is a pacemaker or defibrillator we will have to sort out. For the moment I would continue the amiodarone. He has had no further significant arrhythmias. (2) Multiple fractures of ribs: I am bothered by the fact that he had these rib fractures in early May, I do not know that you could have rib fractures to that extent by coughing. I am more inclined to believe that he fell and broke his ribs but does not recall it, suggesting that he had a syncopal event. He also evidently had an ankle fracture recently from reportedly slipping on wet grass, perhaps that was another syncopal or presyncopal event. He does have a history of syncope many years ago but may have more frequent episodes than we realize. If that is the case they are probably bradycardic not ventricular fibrillation, his recent ventricular fibrillation may have been bradycardia induced however these things are very difficult to prove. (3) Permanent atrial fibrillation: He has permanent atrial fibrillation, he is still in atrial fibrillation even following his defibrillator shock. He is not on anticoagulation due to his cirrhosis and a history of GI bleeding. He is currently off of the ventilator. Specifically related to his arrhythmia his rate is under good control and we are not going to try to convert the rhythm so I would simply watch it. (4) CAD (coronary artery disease): He has catheterization proven coronary artery disease however this event does not seem likely to be due to an ischemic event such as an acute myocardial infarction. There is no electrocardiographic evidence of it and the echocardiogram may not be very helpful following an event like this but it is a little bit worrisome and we will need to repeat it in the near future to see if the abnormalities resolve. His troponin after his event was only 1 and has dropped from there, that is indicative of demand ischemia from his event and it is not likely that this was a coronary event. I would not pursue further evaluation at this time. Subjective He remains confused today, he responds to questions but does not provide meaningful answers and he does not know where he is. He has chest discomfort related to the chest tube is near as I can tell but no other cardiac complaints. Results & Data Vital Signs (Past 12 Hours) Vital Signs Temp Pulse Pulse Resp BP Pulse Ox 06/14/18 08:00 90 06/14/18 06:54 94 H 18 99 06/14/18 06:00 86 15 95/54 L 97 06/14/18 05:00 91 H 24 94/60 L 95 06/14/18 04:30 86 16 92/58 L 98 06/14/18 04:00 36.8 C 84 20 117/59 L 100 06/14/18 03:31 85 14 84/42 L 100 06/14/18 03:27 87 13 80/44 L 99 06/14/18 03:16 81 13 75/47 L 100 06/14/18 03:00 90 20 102/50 L 99 06/14/18 02:30 95 H 19 100/56 L 99 06/14/18 02:00 93 H 23 97/50 L 98 06/14/18 01:30 95 H 25 H 97 06/14/18 01:00 90 13 90/48 L 96 Diagnostic Findings Telemetry: Atrial fibrillation with a reasonably well-controlled heart rate. No significant arrhythmia otherwise. (1) Multiple fractures of ribs Encounter type: initial encounter Fracture type: closed Laterality: right Qualified Code(s): S22.41XA - Multiple fractures of ribs, right side, initial encounter for closed fracture
[2018-06-14] MEDS: fentaNYL citrate 100 MCG/2 ML VIAL IV PRN ×2 (12:36→21:38)
[2018-06-14] MEDS: LACTULOSE SYRUP 30 GM/45 ML UDP PO PRN ×2 (13:06→18:28)
[2018-06-14 13:17] LABS: Lyme Ab IgG w/WB Rflx Negative (Negative); Lyme Ab IgM w/WB Rflx Negative (Negative)
--- NOTE | 2018-06-14 14:19 | XRay Report ---
XR KUB/Abdomen 1 view CLINICAL HISTORY: no BM since 06/02 tube position COMPARISON STUDY: No previous studies for comparison. FINDINGS: Feeding tube placed in the distal stomach. IMPRESSION: Feeding tube placed in the distal stomach. The above report was generated using voice recognition software. It may contain grammatical, syntax or spelling errors. Electronically signed by: Samson Carlton M.D. 06/14/2018 2:18 PM
[2018-06-14] MEDS ORDERED: PEPTAMEN INTENSE VHP 1.0 CAL 1,000 ML BAG GT SCH (14:45)
--- NOTE | 2018-06-14 17:24 | XRay Report ---
KUB CLINICAL HISTORY: Enteric tube placement. FINDINGS: An AP, portable, semierect abdominal radiograph is compared to study performed earlier the same day 06/14/2018. Correlation is made with abdominal CT dated 06/03/2018. An enteric tube projects be low the diaphragm over the proximal stomach. A pleural drain is noted at the right lung base. There i s no evidence of bowel obstruction. The tip of a central venous catheter projects over the cavoatrial junction. Right pleural effusion is noted. IMPRESSION: 1. An enteric tube projects below the diaphragm over the proximal stomach. 2. There is no evidence of bowel obstruction. 3. Right pleural effusion with a pleural drain at the right lung base. Electronically signed by: José Miguel Butler M.D. 06/14/2018 5:23 PM
[2018-06-14 19:08] LABS: Partial Thromboplastin Ratio > 5.1
[2018-06-14 19:13] LABS: Partial Thromboplastin Time > 139.0 Seconds (21.0-31.0)
[2018-06-14 20:27] LABS: Partial Thromboplastin Ratio 2.2
[2018-06-15 02:54] LABS: Basophils # (auto) 0.01 K/uL (0-0.2); Basophils % (auto) 0.1 %; Eosinophils # (auto) 0.04 K/uL (0-0.5); Eosinophils % (auto) 0.5 %; Hematocrit (blood only) 22.8 % (42-52); Hemoglobin 7.9 g/dL (14.0-18.0); Immature Granulocytes # (auto) 0.04 K/uL (0.00-0.02); Immature Granulocytes % (auto) 0.5 %; Lymphocytes # (auto) 0.89 K/uL (1.2-3.4); Lymphocytes % (auto) 10.1 %; Mean Corpuscular Hgb Conc 34.6 g/dL (32-36); Mean Corpuscular Volume 91.6 fL (80-100); Mean Platelet Volume 9.7 fL (7.4-10.4); Monocytes # (auto) 1.49 K/uL (0.11-0.59); Neutrophils # (auto) 6.31 K/uL (1.4-6.5); Neutrophils % (auto) 71.8 %; Platelet Count 172 K/uL (130-400); RDW Standard Deviation 60.1 fL (36.4-46.3); Red Blood Count 2.49 M/uL (4.7-6.1); White Blood Count 8.78 K/uL (4.8-10.8)
[2018-06-15 03:01] LABS: Partial Thromboplastin Ratio 1.3; Partial Thromboplastin Time 34.4 Seconds (21.0-31.0)
[2018-06-15 03:10] LABS: BUN Creatinine Ratio 10.4 (10-20); Calcium 7.9 mg/dl (8.5-10.1); Creatinine Clr Calc Pharmacy 24.2 ml/min; Est GFR (African American) 17.4; Magnesium 2.5 mg/dl (1.8-2.4); Phosphorus 5.7 mg/dl (2.5-4.9); Potassium 3.9 mmol/L (3.5-5.1)
[2018-06-15 03:16] LABS: Polychromasia 1+; Target Cells 1+
[2018-06-15] MEDS: Heparin Adult STANDARD Wt-Based Dextrose 5% 25,000 units/500 mL IV SCH (03:37)
[2018-06-15] MEDS: HEPARIN IV BOLUS 7,000 UNITS in SYRINGE 0 ML IV ONE ×2 (04:00→04:04)
--- NOTE | 2018-06-15 07:06 | XRay Report ---
SINGLE VIEW CHEST CLINICAL HISTORY: Follow-up CHF. FINDINGS: 2 AP, portable, upright chest radiographs are compared to study dated 06/14/2018 and correlat ed with chest CT dated 06/06/2018. The examination is degraded by portable technique, large body habit us, and patient rotation. A right subclavian central venous catheter, a right internal jugular centr al venous catheter, an enteric tube, a right-sided chest tube are unchanged in position. The heart is enlarged and there is atherosclerotic calcification of the thoracic aorta. Mild pulmonary vascular c ongestion persists. Emphysema and chronic interstitial thickening are similar to previous. There is a small right pleural effusion. Bibasilar atelectasis is noted. A trace right apical pneumothorax is u nchanged. The skeletal structures are osteopenic. Right-sided rib fractures are again noted. IMPRESSION: 1. Stable lines and tubes. 2. Trace right apical pneumothorax persists. 3. Cardiomegaly with evidence of mild congestive failure. 4. Emphysema. 5. There is a small right pleural effusion. Electronically signed by: José Miguel Butler M.D. 06/15/2018 7:04 AM
[2018-06-15] MEDS: ALBUT/IPRATROP 3MG/0.5MG NEB 3 ML VIAL NEB SCH ×4 (07:15→19:38)
[2018-06-15] MEDS: BUDESONIDE 0.25 MG/2 ML VIAL (PULMICORT) NEB SCH ×2 (07:15→19:38)
[2018-06-15] MEDS: LIDOCAINE 5% 1 PATCH TD SCH (07:56)
[2018-06-15] MEDS: FAMOTIDINE 20 MG TAB OG SCH (07:59)
[2018-06-15] MEDS: POLYETHYLENE (MIRALAX) 17 GM PACK PO SCH (07:59)
[2018-06-15] MEDS: SENNA 8.6 MG TAB PO SCH (08:00)
[2018-06-15] MEDS: DOCUSATE SODIUM 100 MG CAP PO SCH ×2 (08:00→20:31)
[2018-06-15] MEDS ORDERED: SODIUM CHLORIDE 0.9% 1000ML 1,000 ML IV PRN (08:59)
[2018-06-15] MEDS ORDERED: SODIUM CHLORIDE 0.9% 250 ML IV PRN (09:00)
--- NOTE | 2018-06-15 09:06 | Nephrology Progress Note ---
Date of Service June 15, 2018 Assessment & Plan (1) Acute kidney injury: -- Consistent with ischemic ATN -- First HD treatment provided 06/13/18 via non tunneled catheter -- 2nd treatment yesterday for additional UF/clearance -- Plan 3rd treatment today, orders entered into EMR and discussed with HD nurse, UF goal 1-2 L as tolerated -- Killian to gravity -- Urine output remains low with high obligatory intake -- Document strict I/O's -- Repeat metabolic profile tomorrow AM -- Medications appropriately dosed for kidney function (2) Hyponatremia: -- Hypervolemic -- Poor solute intake, high obligatory fluid intake (3) Cardiac arrest: (4) Hemothorax: -- Hgb remains <8 -- BP remains low -- Will provide 1 unit PRBC with HD today (5) CHF (congestive heart failure): (6) Permanent atrial fibrillation: (7) Cirrhosis: -- Prognosis guarded (8) Right rib fracture: (9) Pleural effusion, right: Subjective Mr. Zarco remains confused. 1:1 at bedside. Patient did not remember HD yesterday. No complications with treatment. Net UF 2.5 L. BP remains low. Levo gtt continued for support. The patient denies pain. He denies dyspnea but work of breathing remains increased. Plan of care was discussed with Dr. Whitaker. Review of Systems Review of Systems: Unobtainable due to cognitive status Physical Exam Constitutional: + ill appearing, + obese and + edematous Eyes: no scleral abnormality and no corneal abnormality ENMT: Mouth: no oral mucosal abnormality and oral mucous membranes not dry Neck: normal visual inspection and trachea midline Respiratory: + tachypneic; no respiratory distress Auscultation: + rhonchi Cardiovascular: Rate/Rhythm: regular rate Heart Sounds: normal S1 and normal S2 Extremities: + edema Gastrointestinal (Abdomen): Inspection/Auscultation: + abdomen distended and normal bowel sounds Percussion/Palpation: abdomen nontender Musculoskeletal: Extremities: no cyanosis and no clubbing Skin: normal turgor; no rashes Neurologic: Motor/Sensory: no tremor and no asterixis Psychiatric: Orientation: + not oriented to place and + not oriented to time Results & Data Vital Signs (Past 12 Hours) Vital Signs Temp Pulse Pulse Resp BP Pulse Ox 06/15/18 08:00 36.4 C L 90 90 20 96/62 L 94 06/15/18 07:16 100 H 18 98 06/15/18 06:30 90 20 92/53 L 99 06/15/18 06:00 78 20 90/50 L 99 06/15/18 05:30 78 20 88/54 L 99 06/15/18 05:00 81 20 87/51 L 98 06/15/18 04:00 36.7 C 85 19 89/48 L 100 06/15/18 03:30 81 20 108/64 99 06/15/18 03:00 83 20 110/61 99 06/15/18 02:30 84 20 114/52 L 94 06/15/18 02:00 77 18 90/46 L 98 06/15/18 01:30 77 16 102/64 100 06/15/18 01:00 85 20 93/53 L 100 06/15/18 00:30 78 16 93/48 L 100 06/15/18 00:00 36.5 C 103 H 22 103/71 95 06/14/18 23:30 89 18 86/48 L 95 06/14/18 23:00 77 20 90/55 L 94 06/14/18 22:55 73 20 112/70 94 06/14/18 22:00 90 20 103/64 96 Laboratory Results Laboratory Results - last 24 hr 06/14/18 06/14/18 06/14/18 08:44 08:44 08:44 WBC RBC Hgb Hct MCV MCH MCHC RDW Std Deviation RDW Coeff of Zack Plt Count MPV Immature Gran % (Auto) Neut % (Auto) Lymph % (Auto) Cache % (Auto) Eos % (Auto) Baso % (Auto) Immature Gran # (Auto) Neut # (Auto) Lymph # (Auto) Cache # (Auto) Eos # (Auto) Baso # (Auto) Polychromasia Target Cells PT INR APTT PTT Ratio Sodium Potassium Chloride Carbon Dioxide Anion Gap BUN Creatinine Est Cr Clr Drug Dosing Est GFR ( Amer) Est GFR (Non-Af Amer) BUN/Creatinine Ratio Glucose Calcium Phosphorus Magnesium Total Bilirubin 3.5 H Direct Bilirubin 2.5 H AST 59 H ALT 49 Alkaline Phosphatase 128 H Ammonia 38.8 H Total Protein 4.8 L Albumin 2.3 L Random Cortisol 34.51 Stool Occult Bld Scrn POC Stool Occult Blood Lyme Disease IgG Ab Lyme Disease IgM Ab Blood Type Antibody Screen Crossmatch 06/14/18 06/14/18 06/14/18 08:44 10:32 10:32 WBC RBC Hgb Hct MCV MCH MCHC RDW Std Deviation RDW Coeff of Zack Plt Count MPV Immature Gran % (Auto) Neut % (Auto) Lymph % (Auto) Cache % (Auto) Eos % (Auto) Baso % (Auto) Immature Gran # (Auto) Neut # (Auto) Lymph # (Auto) Cache # (Auto) Eos # (Auto) Baso # (Auto) Polychromasia Target Cells PT 14.1 H INR 1.4 H APTT 82.6 H* PTT Ratio 3.0 Sodium Potassium Chloride Carbon Dioxide Anion Gap BUN Creatinine Est Cr Clr Drug Dosing Est GFR ( Amer) Est GFR (Non-Af Amer) BUN/Creatinine Ratio Glucose Calcium Phosphorus Magnesium Total Bilirubin Direct Bilirubin AST ALT Alkaline Phosphatase Ammonia Total Protein Albumin Random Cortisol Stool Occult Bld Scrn POC Stool Occult Blood Lyme Disease IgG Ab Negative Lyme Disease IgM Ab Negative Blood Type A Positive Antibody Screen NEGATIVE Crossmatch See Detail 06/14/18 06/14/18 06/14/18 18:05 19:57 20:29 WBC RBC Hgb Hct MCV MCH MCHC RDW Std Deviation RDW Coeff of Zack Plt Count MPV Immature Gran % (Auto) Neut % (Auto) Lymph % (Auto) Cache % (Auto) Eos % (Auto) Baso % (Auto) Immature Gran # (Auto) Neut # (Auto) Lymph # (Auto) Cache # (Auto) Eos # (Auto) Baso # (Auto) Polychromasia Target Cells PT INR APTT > 139.0 H* 60.0 H* PTT Ratio > 5.1 2.2 Sodium Potassium Chloride Carbon Dioxide Anion Gap BUN Creatinine Est Cr Clr Drug Dosing Est GFR ( Amer) Est GFR (Non-Af Amer) BUN/Creatinine Ratio Glucose Calcium Phosphorus Magnesium Total Bilirubin Direct Bilirubin AST ALT Alkaline Phosphatase Ammonia Total Protein Albumin Random Cortisol Stool Occult Bld Scrn POC Stool Occult Blood Cancelled Lyme Disease IgG Ab Lyme Disease IgM Ab Blood Type Antibody Screen Crossmatch 06/14/18 06/15/18 06/15/18 20:29 02:44 02:44 WBC 8.78 RBC 2.49 L Hgb 7.9 L Hct 22.8 L MCV 91.6 MCH 31.7 MCHC 34.6 RDW Std Deviation 60.1 H RDW Coeff of Zack 18.0 H Plt Count 172 MPV 9.7 Immature Gran % (Auto) 0.5 Neut % (Auto) 71.8 Lymph % (Auto) 10.1 Cache % (Auto) 17.0 Eos % (Auto) 0.5 Baso % (Auto) 0.1 Immature Gran # (Auto) 0.04 H Neut # (Auto) 6.31 Lymph # (Auto) 0.89 L Cache # (Auto) 1.49 H Eos # (Auto) 0.04 Baso # (Auto) 0.01 Polychromasia 1+ Target Cells 1+ PT INR APTT PTT Ratio Sodium 130 L Potassium 3.9 Chloride 94 L Carbon Dioxide 27 Anion Gap 9.0 BUN 40 H Creatinine 3.86 H Est Cr Clr Drug Dosing 24.2 Est GFR ( Amer) 17.4 Est GFR (Non-Af Amer) 15.0 BUN/Creatinine Ratio 10.4 Glucose 143 H Calcium 7.9 L Phosphorus 5.7 H Magnesium 2.5 H Total Bilirubin Direct Bilirubin AST ALT Alkaline Phosphatase Ammonia Total Protein Albumin Random Cortisol Stool Occult Bld Scrn Positive A POC Stool Occult Blood Lyme Disease IgG Ab Lyme Disease IgM Ab Blood Type Antibody Screen Crossmatch 06/15/18 02:44 WBC RBC Hgb Hct MCV MCH MCHC RDW Std Deviation RDW Coeff of Zack Plt Count MPV Immature Gran % (Auto) Neut % (Auto) Lymph % (Auto) Cache % (Auto) Eos % (Auto) Baso % (Auto) Immature Gran # (Auto) Neut # (Auto) Lymph # (Auto) Cache # (Auto) Eos # (Auto) Baso # (Auto) Polychromasia Target Cells PT INR APTT 34.4 H PTT Ratio 1.3 Sodium Potassium Chloride Carbon Dioxide Anion Gap BUN Creatinine Est Cr Clr Drug Dosing Est GFR ( Amer) Est GFR (Non-Af Amer) BUN/Creatinine Ratio Glucose Calcium Phosphorus Magnesium Total Bilirubin Direct Bilirubin AST ALT Alkaline Phosphatase Ammonia Total Protein Albumin Random Cortisol Stool Occult Bld Scrn POC Stool Occult Blood Lyme Disease IgG Ab Lyme Disease IgM Ab Blood Type Antibody Screen Crossmatch (1) Cirrhosis Hepatic cirrhosis type: alcoholic cirrhosis Ascites presence: with ascites Qualified Code(s): K70.31 - Alcoholic cirrhosis of liver with ascites (2) Right rib fracture Encounter type: initial encounter Fracture type: closed Rib fracture type: multiple ribs Qualified Code(s): S22.41XA - Multiple fractures of ribs, right side, initial encounter for closed fracture
--- NOTE | 2018-06-15 10:14 | Family Medicine Progress Note ---
Date of Service June 15, 2018 Assessment & Plan (1) Anuria and oliguria: Patient in ICU status post cardiac arrest Cardiac Arrest secondary to ventricular dysrhythmia -Coni of arrest rhythm not entirely clear, cardiology on board Dr. Garcia, believes patient will likely need pacer/defibrillator prior to d/c -Holding atenolol and metoprolol status post arrest with preceding bradycardia -On amiodarone drip for concern of V fib noted on monitor Permanent Atrial fibrillation -Not on AC due to h/o cirrhosis and elevated INR -placed on heparin drip here Mild elevation of Troponin/LHC proven CAD -Likely demand ischemia Cardiogenic Shock - Requiring pressors - on decreasing doses of levaphed CHF with right side pleural effusion Dialysis should help with fluid management Respiratory failure s/p arrest Now extubated Supplemental O2 PRN to maintain sats 92% COPD (chronic obstructive pulmonary disease): Continue home inhalers - Dulera Budesonide nebs DuoNebs q 6 hours Albuterol q 2 hours PRN Hemothorax secondary to trama/Pneumothorax after central line Patient with recurrent hemothorax, Chest tube currently in place continues to drain bloody fluid. had new pneumothorax yesterday after central line placement. Chest X ray 05/15 shows very small shrinking pneumothorax (~4.5 mm) Multiple fractures of ribs: Patient with fractures of ribs 7-10 mid-axillary line, diagnosed by CT during last hospital admission. secondary to severe coughing in setting of recent PNA/bronchitis Versus previous episodes of arrhythmia causing syncope Pain well controlled today, on [employer]ER Acute renal failure - Ischemic ATN -Dialysis started through RIJ central line, creatinine and electrolytes improved -- Killian to gravity -- Urine output remains low with high obligatory intake -- Document strict I/O's -- Additional 1-2 L UF as tolerated -- Levo to maintain MAP >65 -- Repeat metabolic profile tomorrow AM -- Medications appropriately dosed for kidney function Hyponatremia: -- Hypervolemic Poor solute intake, high obligatory fluid intake Acute blood loss anemia secondary to hemothorax : -- Hgb remains <8 PRBC transfusion support can be provided with HD as needed Cirrhosis: Patient with history of liver cirrhosis thought to be secondary to EtOH abuse. Child Class B, MELD score =11. Anasarca. Patient has been on multiple courses of Prednisone over the past month which is most likely contributing to fluid retention. No sign of decompensated cirrhosis. HCC MRI performed on 01/11/18 with two lesions suspicious for HCC. AFP level on 04/29/18 was 22.8 (relatively stable, was 27.9 on 07/23/17 and 18.9 on 01/18/18). Patient reports that he follows with Dr. Petty for this and has been doing well. PT/OT recommend acute rehab F/E/N -full liquid diet today Ppx -currently on hold Code -Full per discussion with patient Dispo -ICU (2) Acute kidney injury: (3) Admitted to intensive care unit: (4) CAD (coronary artery disease): (5) Cardiac arrest: (6) Hypertension: (7) COPD (chronic obstructive pulmonary disease): (8) CHF (congestive heart failure): (9) History of thoracentesis: (10) Multiple fractures of ribs: (11) Hemothorax: (12) Respiratory distress: (13) Cirrhosis: (14) Right-sided chest wall pain: (15) Pleural effusion, right: (16) Ascites: (17) Asthmatic bronchitis: (18) Cellulitis of leg: (19) Chest pain: (20) Hypoxia: Supervising Physician Co-Signing Physician Notes Resident Physician Supervision Note: I independently interviewed and examined the patient and verified the james history and physical, reviewed labs and image studies, discussed the case with the resident Dr. Bond and agree with the findings and care plan. Subjective Santos Zarco is somnolent today, but he is rousable and able to tell me where he is having discomfort. He tells me he's having mild abdominal pain, but better than he has had and that his breathing feels much better. Not able to get much out of him. Review of Systems Review of Systems: Unobtainable due to reduced consciousness Physical Exam Constitutional: + ill appearing and + morbidly obese; no acute distress Eyes: + scleral abnormality (jaundiced) and PERRL Neck: normal visual inspection Respiratory: normal respiratory effort Auscultation: + crackles and + wheezes Cardiovascular: Rate/Rhythm: + abnormal rhythm Heart Sounds: no click, no gallop, no murmur and no cardiac rub Vessels: normal peripheral pulses Gastrointestinal (Abdomen): Inspection/Auscultation: + abdomen distended and normal bowel sounds Percussion/Palpation: + abdomen tender (flank), abdomen soft and + ascites Skin: + jaundice Neurologic: PERRL, EOMI, accommodation nl, no face palsy, no dysarthria Results & Data Vital Signs (Past 12 Hours) Vital Signs Temp Pulse Pulse Resp BP Pulse Ox 06/15/18 08:00 36.4 C L 90 90 20 96/62 L 94 06/15/18 07:16 100 H 18 98 06/15/18 06:30 90 20 92/53 L 99 06/15/18 06:00 78 20 90/50 L 99 06/15/18 05:30 78 20 88/54 L 99 06/15/18 05:00 81 20 87/51 L 98 06/15/18 04:00 36.7 C 85 19 89/48 L 100 06/15/18 03:30 81 20 108/64 99 06/15/18 03:00 83 20 110/61 99 06/15/18 02:30 84 20 114/52 L 94 06/15/18 02:00 77 18 90/46 L 98 06/15/18 01:30 77 16 102/64 100 06/15/18 01:00 85 20 93/53 L 100 06/15/18 00:30 78 16 93/48 L 100 06/15/18 00:00 36.5 C 103 H 22 103/71 95 06/14/18 23:30 89 18 86/48 L 95 06/14/18 23:00 77 20 90/55 L 94 06/14/18 22:55 73 20 112/70 94 Resident Activity Tracking Resident Involvement: Resident Care Provided Care Provided: Adult Hospital Medicine (1) Multiple fractures of ribs Encounter type: initial encounter Fracture type: closed Laterality: right Qualified Code(s): S22.41XA - Multiple fractures of ribs, right side, initial encounter for closed fracture (2) Cirrhosis Ascites presence: with ascites Hepatic cirrhosis type: alcoholic cirrhosis Qualified Code(s): K70.31 - Alcoholic cirrhosis of liver with ascites (3) Chest pain Chest pain type: unspecified Qualified Code(s): R07.9 - Chest pain, unspecified
[2018-06-15 10:24] LABS: Partial Thromboplastin Ratio 3.1
[2018-06-15] MEDS: NSS IV PRN (10:33)
[2018-06-15] MEDS: NOREPINEPHRINE IV PRN (10:33)
[2018-06-15 10:40] LABS: Partial Thromboplastin Time 84.8 Seconds (21.0-31.0)
[2018-06-15] MEDS ORDERED: fentaNYL citrate 100 MCG/2 ML VIAL IV PRN (12:30)
--- NOTE | 2018-06-15 12:33 | Critical Care Progress Note ---
Date of Service June 15, 2018 Assessment & Plan (1) Cardiac arrest: Reason Critically Ill: [id number] male with a past medical history including alcoholic liver cirrhosis with steatohepatitis and HCC, hypertension, COPD, A. fib, and congestive heart failure. He presented to the hospital with increasing shortness of breath in the setting of multiple rib fractures and pleural effusion/hemothorax and has been transferred to the ICU for further care following V. fib and arrest with subsequent ROSC. Neuro - CAM-ICU positive Somnolent, ENVIRONMENTAL QUALITY ANALYST discontinued. Pain control with Fentanyl 100mcg IV Q4H PRN decreased to 50 mcg IV every 4 hours as needed Acute Encephalopathy 2/2 hepatic vs hypercarbic vs narcotic accumulation - MRI shows no acute findings - Hyperammonemic. Lactulose titrated to 3-4 BMs per day, had a bowel movement this morning and is clinically improving Cardiac - VFib Arrest with ROSC - Unclear etiology. Lyme serology negative. Suspicious for degeneration from bradycardia arrhythmia to V. fib. - Cardomyopathy suspect ischemic - Cardiology consulted. Will likely need ICD once clinically stable. Allscripts review shows a hx of syncope and given his recent rib fractures question if his admission is due to cardiac syncopal events. - ECG shows no signs of acute ischemia - Requiring norepi for pressure support currently at 0.02mcg/kg/min. Wean to MAP >=65. Added midodrine 10 mg 3 times daily today for additional support Permanent Afib - Amiodarone .5mg/min -heparin gtt - Metoprolol/Atenolol held in context of hypotension Respiratory - AHRF: Extubated, weaned to on 3L NC - Repeat CXR shows residual small R pneumothorax improved from yesterday. PV co ngestion but no effusion, PNA ing chest tube - R Pneumothorax on rCT 2/2 line placement vs traumatic/CPR - R chest tube in place draining >600cc serosanginous this morning. Intermittently to suction, no air leak. Thoracic surgery following, may remove tube tomorrow. COPD - Extubated, on NC. Sat >94%, although coarse upper airway sounds today - Albuterol Neb QID ALYSIA - Budesonide .25mg neb BID GI - Alcoholic Cirrhosis with steatohepatitis and HCC - CP Class B, MELD 11 - Follows with [facility] for HCC, stable - Hyperammonemic, lactulose titrated to BMs as above. -Mental status improved, switch from core safe to full liquid diet today RENAL/LYTES - Acute Kidney Failure 2/2 ATN in setting of cardiac arrest. - Hyponatremic, Hyperphosphatemic with normal potassium -Tolerated dialysis well today with 1.8 L ultrafiltration removed. Weight 128.2 kg from 133 yesterday. - Killian removed today Follow I&Os. Minimal urine output ENDO - Glucose control adequate. HEME - Normocytic, Normochronic Anemia, guaiac positive - Hgb 7.9 today. - Type & Screen ordered. hgb Q8H. received 1 unit with dialysis. - xfusion threshold <7.0g/dL. ID - - Afebrile, low suspicion for PNA at this time Monitor fever curve INTEGUMENTARY - Chest wall bruising without signs of cellulitis at site of rib fxr - Continue to follow - Pressure ulcer prophylaxis. LINES/IV ACCESS - R-IJ Dialysis Catheter (Double Lumen) R Subclavian central line, triple lumen DVT PROPHYLAXIS - Heparin gtt as above SCD Thank you for allowing us to be part of this patient's care. Please refer to Dr. Whitaker's documentation for any further recommendations. Supervising Physician Co-Signing Physician Notes Reason Critically Ill: 67-year-old male status post cardiac arrest PLAN: Neuro: Acute encephalopathy: Improved -Check ammonia tomorrow - MRI brain reviewed Pain: - 50 mcg fentanyl every 4 hours as needed pain Resp: Apical pneumothorax right: Improving Pleural effusion right Multiple rib fractures: Right 7-10 -660 mL output of chest tube in last 24 hours - Thoracics following chest tube COPD:Stable CV: Status post cardiac arrest - Suspected ventricular fibrillation with primary arrhythmia as cause Permanent atrial fibrillation -Discontinue amiodarone infusion convert to 200 mg twice daily - Heparin infusion Cardiomyopathy: Ischemic - Decreased EF, will defer to cardiology for placement of pacemaker versus AICD. Bradycardic episode: Lyme negative Hypotension: Related to possible cardiomyopathy - On Levophed currently weaning -Start midodrine 10 mg 3 times daily Fluids/Renal: Acute kidney injury: -Tolerating dialysis today ID: Finished 5 days of Rocephin - Discontinue Killian today bladder scan GI/Nutrition: Cirrhosis:Presumptive alcoholic - Corsafe discontinue given patient mental status improvement and swallowing pills Constipation since June 02: Resolved Heme: Anemia of chronic disease: -Transfused 1 unit with dialysis - Guaiac stool positive DVT prophylaxis: heparin ggt Endocrine: ICU hyperglycemia protocol Vascular access: Right subclavian triple-lumen, Right internal jugular dialysis catheter Code Status: Full code I have personally spent 35 minutes of critical care time in the direct manageme nt of this patient. This is a life/limb threatening event. This includes time spent evaluating patient, direct bedside care, chart review, placing orders, interpretation of diagnostic studies, discussion with consultants, patient, and/or family members regarding treatment decisions, as well as other required patient management activities. This time is exclusive of all separately billable procedures, and teaching time and separate from and in addition to any other critical care service time. Disposal: ICU until able to be completely weaned off Levophed Dr. King was resident physician during care of patient. I separately evaluated patient for james portions of the history and the exam. I was present during the critical portion of medical decision making, and I discussed the case with the resident. I generally agree with the findings and plan. Subjective Mr. Lock reports he feels like he is doing better today. He is much more c ognitively clear. He recognizes that he was confused yesterday, but does not remember it well. He reports that his right rib pain is bothering him today, not painful at rest but greatly painful when he is moved by staff. Reports that his breathing is okay at baseline. He had small bowel movement this morning. His Killian was taken out this morning. No questions or concerns at time of visit. Review of Systems Review of Systems: Constitutional: Denies fever, chills, endorse fatigue Eyes: Denies vision change, hallucinations Cardiovascular: Endorses chest pain, rib pain. Denies chest pressure, palpitations Respiratory: Endorses shortness of breath, cough, sputum production. denies difficulty breathing Gastrointestinal: Denies abdominal pain, nausea, vomiting, constipation, diarrhea Genitourinary: Denies pain with urination Musculoskeletal: Endorses weakness, rib pain. Denies other joint/muscle pain this morning. Neurological: Denies headache, confusion this morning. Physical Exam Physical Exam: General: Alert oriented to name, date, and place. HEENT: Atraumatic, normocephalic. PERLAA. Lip ulcer with slight scab present. Pulm: Diminished air movement. Diffuse rhonchi. Mild increased work of b reathing. Symmetrical chest rise. Cardiac: RRR, -mrg. Radial pulses intact and symmetrical. Abdominal: Obese, soft. BS present. Large hematoma at R flank at ribs 8-10. Supraumbilical hematoma present. Ext: Skin warm, dry. Pitting edema in lower extremities bilaterally. Cap refill ~2 seconds. Results & Data Vital Signs (Past 12 Hours) Vital Signs Temp Pulse Pulse Pulse Resp BP Pulse Ox 06/15/18 06:30 90 20 92/53 L 99 06/15/18 06:00 78 20 90/50 L 99 06/15/18 05:30 78 20 88/54 L 99 06/15/18 05:00 81 20 87/51 L 98 06/15/18 04:00 36.7 C 85 19 89/48 L 100 06/15/18 03:30 81 20 108/64 99 06/15/18 03:00 83 20 110/61 99 06/15/18 02:30 84 20 114/52 L 94 06/15/18 02:00 77 18 90/46 L 98 06/15/18 01:30 77 16 102/64 100 06/15/18 01:00 85 20 93/53 L 100 06/15/18 00:30 78 16 93/48 L 100 06/15/18 00:00 36.5 C 103 H 22 103/71 95 06/14/18 23:30 89 18 86/48 L 95 06/14/18 23:00 77 20 90/55 L 94 06/14/18 22:55 73 20 112/70 94 06/14/18 22:00 90 20 103/64 96 06/14/18 21:00 87 19 104/74 92 06/14/18 20:30 36.6 C 97 H 19 132/60 95 06/14/18 20:00 91 H 06/14/18 19:52 83 18 90 06/14/18 19:30 111 H 22 110/67 94 06/14/18 19:00 101 H 20 109/70 93 Resident Activity Tracking Resident Involvement: Resident Care Provided Care Provided: Adult Hospital Medicine
--- NOTE | 2018-06-15 13:28 | Progress Note ---
DATE: 06/15/2018 Mr. Zarco looks terrible. I had a long talk with his significant other. He has continued to drain quite a bit of fluid from his chest tube, putting out over a liter yesterday. He is now undergoing dialysis. He has apparent hepatorenal failure. I am going to take his chest tube out tomorrow and suture the incision shut. He is going to have a very difficult time pulling out of this multisystem organ failure. I explained this quite frankly to the patient's significant other. NANNETTE
[2018-06-15] MEDS: AMIODARONE 200 MG TAB PO SCH ×2 (13:56→20:29)
[2018-06-15] MEDS: MIDODRINE HCL 10 MG TAB PO SCH (14:10)
[2018-06-15 19:09] LABS: Partial Thromboplastin Ratio 1.3
[2018-06-15] MEDS ORDERED: HEPARIN IV BOLUS 7,000 UNITS in SYRINGE 0 ML IV ONE (19:50)
[2018-06-16 02:05] LABS: Basophils # (auto) 0.01 K/uL (0-0.2); Basophils % (auto) 0.1 %; Eosinophils # (auto) 0.18 K/uL (0-0.5); Eosinophils % (auto) 1.9 %; Hematocrit (blood only) 26.1 % (42-52); Hemoglobin 8.9 g/dL (14.0-18.0); Immature Granulocytes # (auto) 0.07 K/uL (0.00-0.02); Immature Granulocytes % (auto) 0.8 %; Lymphocytes # (auto) 1.75 K/uL (1.2-3.4); Lymphocytes % (auto) 18.9 %; Mean Corpuscular Hgb Conc 34.1 g/dL (32-36); Mean Corpuscular Volume 89.7 fL (80-100); Monocytes # (auto) 1.69 K/uL (0.11-0.59); Monocytes % (auto) 18.3 %; Neutrophils # (auto) 5.56 K/uL (1.4-6.5); Platelet Count 124 K/uL (130-400); RDW Coefficient of Variation 18.5 % (11.5-14.5); RDW Standard Deviation 59.4 fL (36.4-46.3); Red Blood Count 2.91 M/uL (4.7-6.1); White Blood Count 9.26 K/uL (4.8-10.8)
[2018-06-16 02:22] LABS: BUN Creatinine Ratio 10.1 (10-20); Calcium 7.9 mg/dl (8.5-10.1); Creatinine Clr Calc Pharmacy 23.9 ml/min; Est GFR (African American) 17.8; Est GFR (Non-African American) 15.3; Magnesium 2.4 mg/dl (1.8-2.4)
[2018-06-16 02:42] LABS: Phosphorus 4.8 mg/dl (2.5-4.9)
[2018-06-16 03:09] LABS: Partial Thromboplastin Ratio 4.4
[2018-06-16 03:11] LABS: Partial Thromboplastin Time 118.8 Seconds (21.0-31.0)
[2018-06-16] MEDS: MIDODRINE HCL 10 MG TAB PO SCH ×3 (05:38→14:04)
[2018-06-16] MEDS: LACTULOSE SYRUP 30 GM/45 ML UDP PO PRN (05:38)
[2018-06-16] MEDS: BUDESONIDE 0.25 MG/2 ML VIAL (PULMICORT) NEB SCH (07:06)
[2018-06-16] MEDS: ALBUT/IPRATROP 3MG/0.5MG NEB 3 ML VIAL NEB SCH ×4 (07:06→19:22)
[2018-06-16] MEDS ORDERED: DOCUSATE SODIUM 100 MG CAP PO PRN (08:30)
[2018-06-16] MEDS: AMIODARONE 200 MG TAB PO SCH ×2 (08:53→20:44)
[2018-06-16] MEDS: FAMOTIDINE 20 MG TAB OG SCH (08:53)
[2018-06-16] MEDS: LIDOCAINE 5% 1 PATCH TD SCH (08:53)
[2018-06-16] MEDS: Heparin Adult STANDARD Wt-Based Dextrose 5% 25,000 units/500 mL IV SCH (08:56)
[2018-06-16] MEDS ORDERED: POLYETHYLENE (MIRALAX) 17 GM PACK PO PRN (09:00)
[2018-06-16] MEDS ORDERED: SENNA 8.6 MG TAB PO PRN (09:00)
--- NOTE | 2018-06-16 10:02 | Nephrology Progress Note ---
Date of Service June 16, 2018 Assessment & Plan (1) Acute kidney injury: -- Consistent with ischemic ATN and HRS -- First HD treatment provided 06/13/18 via non tunneled catheter -- 3rd treatment performed yesterday -- Bladder scan q 6 hours -- Remains hypervolemic -- Document strict I/O's -- Will hold HD today -- Repeat metabolic profile tomorrow AM -- Medications appropriately dosed for kidney function -- Will consult vascular surgery for HD permcath placement tomorrow versus Thursday, pending there is no interval evidence of renal recovery (2) Hyponatremia: -- Hypervolemic -- Poor solute intake, high obligatory fluid intake (3) Cardiac arrest: (4) Hemothorax: -- 1 u PRBC provided with HD 06/15/18 (5) CHF (congestive heart failure): (6) Permanent atrial fibrillation: (7) Cirrhosis: -- Prognosis guarded (8) Right rib fracture: (9) Pleural effusion, right: Subjective No acute events overnight. Mr. Lock feels well today. He tolerated HD yesterday without complications. Net UF 1.8 L. Killian has been removed. Minimal urine output noted. Chest tube continues to drain large amounts of bloody fluid. No fevers or chills. The patient notes that he would be agreeable to HD permcath placement if there is no evidence of kidney recovery in the next 24 hours. Review of Systems Review of Systems: All systems reviewed & are unremarkable except as noted in HPI & below Physical Exam Constitutional: + ill appearing, + obese and + edematous Eyes: no scleral abnormality and no corneal abnormality ENMT: Mouth: no oral mucosal abnormality and oral mucous membranes not dry Neck: normal visual inspection and trachea midline Respiratory: + tachypneic; no respiratory distress Auscultation: + rhonchi Cardiovascular: Rate/Rhythm: regular rate Heart Sounds: normal S1 and normal S2 Extremities: + edema Gastrointestinal (Abdomen): Inspection/Auscultation: + abdomen distended and normal bowel sounds Percussion/Palpation: abdomen nontender Musculoskeletal: Extremities: no cyanosis and no clubbing Skin: normal turgor; no rashes Neurologic: Motor/Sensory: no tremor and no asterixis Psychiatric: Orientation: + not oriented to place and + not oriented to time Results & Data Vital Signs (Past 12 Hours) Vital Signs Temp Pulse Pulse Resp BP BP Pulse Ox 06/16/18 09:00 90 114/78 96 06/16/18 08:00 97 H 95/57 L 94 06/16/18 07:07 90 18 98 06/16/18 07:00 36.9 C 79 92/51 L 97 06/16/18 06:17 89 100/49 L 97 06/16/18 06:01 89 20 73/51 L 97 06/16/18 05:00 82 19 75/47 L 97 06/16/18 04:00 36.4 C L 81 20 100/52 L 95 06/16/18 03:00 95 H 20 80/53 L 99 06/16/18 02:00 84 18 92/47 L 100 06/16/18 01:00 88 16 83/49 L 97 06/16/18 00:00 36.4 C L 88 18 82/49 L 97 06/15/18 23:00 90 16 74/55 L 95 06/15/18 22:00 91 H 18 85/55 L 92 Laboratory Results Laboratory Results - last 24 hr 06/14/18 06/15/18 06/15/18 10:32 09:31 18:32 WBC RBC Hgb Hct MCV MCH MCHC RDW Std Deviation RDW Coeff of Zack Plt Count MPV Immature Gran % (Auto) Neut % (Auto) Lymph % (Auto) Quay % (Auto) Eos % (Auto) Baso % (Auto) Immature Gran # (Auto) Neut # (Auto) Lymph # (Auto) Quay # (Auto) Eos # (Auto) Baso # (Auto) APTT 84.8 H* 36.0 H PTT Ratio 3.1 1.3 Sodium Potassium Chloride Carbon Dioxide Anion Gap BUN Creatinine Est Cr Clr Drug Dosing Est GFR ( Amer) Est GFR (Non-Af Amer) BUN/Creatinine Ratio Glucose Calcium Phosphorus Magnesium Ammonia Blood Type A Positive Antibody Screen NEGATIVE Crossmatch See Detail 06/16/18 06/16/18 06/16/18 01:58 01:58 01:58 WBC 9.26 RBC 2.91 L Hgb 8.9 L Hct 26.1 L MCV 89.7 MCH 30.6 MCHC 34.1 RDW Std Deviation 59.4 H RDW Coeff of Zack 18.5 H Plt Count 124 L MPV 10.0 Immature Gran % (Auto) 0.8 Neut % (Auto) 60.0 Lymph % (Auto) 18.9 Quay % (Auto) 18.3 Eos % (Auto) 1.9 Baso % (Auto) 0.1 Immature Gran # (Auto) 0.07 H Neut # (Auto) 5.56 Lymph # (Auto) 1.75 Quay # (Auto) 1.69 H Eos # (Auto) 0.18 Baso # (Auto) 0.01 APTT PTT Ratio Sodium 131 L Potassium 4.0 Chloride 96 L Carbon Dioxide 28 Anion Gap 7.0 BUN 38 H Creatinine 3.80 H Est Cr Clr Drug Dosing 23.9 Est GFR ( Amer) 17.8 Est GFR (Non-Af Amer) 15.3 BUN/Creatinine Ratio 10.1 Glucose 116 H Calcium 7.9 L Phosphorus 4.8 Magnesium 2.4 Ammonia 63.0 H Blood Type Antibody Screen Crossmatch 06/16/18 02:42 WBC RBC Hgb Hct MCV MCH MCHC RDW Std Deviation RDW Coeff of Zack Plt Count MPV Immature Gran % (Auto) Neut % (Auto) Lymph % (Auto) Quay % (Auto) Eos % (Auto) Baso % (Auto) Immature Gran # (Auto) Neut # (Auto) Lymph # (Auto) Quay # (Auto) Eos # (Auto) Baso # (Auto) APTT 118.8 H* PTT Ratio 4.4 Sodium Potassium Chloride Carbon Dioxide Anion Gap BUN Creatinine Est Cr Clr Drug Dosing Est GFR ( Amer) Est GFR (Non-Af Amer) BUN/Creatinine Ratio Glucose Calcium Phosphorus Magnesium Ammonia Blood Type Antibody Screen Crossmatch (1) Cirrhosis Hepatic cirrhosis type: alcoholic cirrhosis Ascites presence: with ascites Qualified Code(s): K70.31 - Alcoholic cirrhosis of liver with ascites (2) Right rib fracture Encounter type: initial encounter Fracture type: closed Rib fracture type: multiple ribs Qualified Code(s): S22.41XA - Multiple fractures of ribs, right side, initial encounter for closed fracture
--- NOTE | 2018-06-16 10:34 | Critical Care Progress Note ---
Date of Service June 16, 2018 Assessment & Plan (1) Cardiac arrest: Reason Critically Ill: 67-year-old male with a past medical history including alcoholic liver cirrhosis with steatohepatitis and HCC, hypertension, COPD, A. fib, and congestive heart failure. He presented to the hospital with increasing shortness of breath in the setting of multiple rib fractures and pleural effusion/hemothorax and has been transferred to the ICU for further care following V. fib and arrest with subsequent ROSC. He is clinically stable today. Neuro - CAM-ICU positive Somnolent, LAST TRIMMER discontinued. Pain control with Fentanyl 50mcg IV Q4H PRN Acute Encephalopathy 2/2 hepatic vs hypercarbic vs narcotic accumulation - MRI shows no acute findings - Hyperammonemic. Lactulose titrated to 3-4 BMs per day, had a bowel movement this morning and is clinically improving Cardiac - VFib Arrest with ROSC - Unclear etiology. Lyme serology negative. Suspicious for degeneration from bradycardia arrhythmia to V. fib. - Cardomyopathy suspect ischemic - Cardiology consulted. Will likely need ICD once clinically stable. Allscripts review shows a hx of syncope and given his recent rib fractures question if his admission is due to cardiac syncopal events. - ECG shows no signs of acute ischemia - Stable off pressors today. Midodrine 10mg TID Permanent Afib - Amiodarone .5mg/min -heparin gtt - Metoprolol/Atenolol held in context of hypotension Respiratory - AHRF: Extubated, weaned to room air today - R Pneumothorax on rCT 2/2 line placement vs traumatic/CPR - R chest tube in place draining serosanginous this morning.Thoracic surgery following, tube to be removed today. COPD - Extubated, on NC. Sat >94%, although coarse upper airway sounds today - Albuterol Neb QID ALYSIA - Budesonide .25mg neb BID GI - Alcoholic Cirrhosis with steatohepatitis and HCC - CP Class B, MELD 11 - Follows with [facility] On[facility] for HCC, stable - Hyperammonemic, lactulose titrated to BMs as above. -Mental status improved, switch from core safe to full liquid diet today RENAL/LYTES - Acute Kidney Failure 2/2 ATN in setting of cardiac arrest. - Hyponatremic, Hyperphosphatemic with normal potassium -Tolerated dialysis well. Daily weights. - Killian removed today Follow I&Os. Minimal urine output ENDO - Glucose control adequate. HEME - Normocytic, Normochronic Anemia, guaiac positive - Type & Screen ordered. hgb Q8H. received 1 unit with dialysis. - xfusion threshold <7.0g/dL. ID - - Afebrile, low suspicion for PNA at this time Monitor fever curve INTEGUMENTARY - Chest wall bruising without signs of cellulitis at site of rib fxr - Continue to follow - Pressure ulcer prophylaxis. LINES/IV ACCESS - R-IJ Dialysis Catheter (Double Lumen) R Subclavian central line, triple lumen removed today. DVT PROPHYLAXIS - Heparin gtt as above SCD Stable for downgrade from ICU today. Thank you for allowing us to be part of this patient's care. Please refer to Dr. Whitaker's documentation for any further recommendations. Supervising Physician Co-Signing Physician Notes Dr. King was resident physician during care of patient. I separately evaluated patient for james portions of the history and the exam. I was present during the critical portion of medical decision making, and I discussed the case with the resident. I generally agree with the findings and plan. Reason Critically Ill: 67-year-old male status post cardiac arrest PLAN: Neuro: Acute encephalopathy: Improved resolved -Check ammonia tomorrow ammonia continued to elevate however he is improved compared to yesterday - MRI brain reviewed Pain: - 50 mcg fentanyl every 4 hours as needed pain discontinue IV opiates transition to oral if needed Resp: Apical pneumothorax right: Improving Pleural effusion right Multiple rib fractures: Right 7-10 - continued high output - Thoracics following chest tube COPD:Stable CV: Status post cardiac arrest - Suspected ventricular fibrillation with primary arrhythmia as cause Permanent atrial fibrillation -Discontinue amiodarone infusion convert to 200 mg twice daily - Heparin infusionWill continue until planned interventions are completed Cardiomyopathy: Ischemic - Decreased EF, will defer to cardiology for placement of pacemaker versus AICD. Bradycardic episode: Lyme negative Hypotension: resolved - Midodrine 10 mg 3 times daily Fluids/Renal: Acute kidney injury: -Tolerating dialysis ID: Finished 5 days of Rocephin - Discontinue Killian today bladder scan GI/Nutrition: Cirrhosis:Presumptive alcoholic - tolerating oral diet with fluid restriction Constipation: Resolved Heme: Anemia of chronic disease: -Transfused 1 unit with dialysis - Guaiac stool positive DVT prophylaxis: heparin ggt Endocrine: ICU hyperglycemia protocol Vascular access: Right subclavian triple-lumen discontinue right subclavian continue Right internal jugular dialysis catheter -Defer to nephrology if patient will require eventual permacath placement Code Status: Full code Patient stable for downgrade out of ICU to telemetry status Dr. King was resident physician during care of patient. I separately evaluated patient for james portions of the history and the exam. I was present during the critical portion of medical decision making, and I discussed the case with the resident. I generally agree with the findings and plan. Subjective Mr. Zarco continues to have pain in his R ribs. Endorses pain at his R ribs with inspiration. Denies chest pain, chest pressure. today. No headache. Feels cognitively about the same as yesterday. Per thoracic will pull his chest tube today. No other questions or concerns ta this time. Review of Systems Review of Systems: Constitutional: Denies fever, chills, endorses fatigue Eyes: Denies vision change, hallucinations Cardiovascular: Endorses rib pain. Denies chest pain other than his rib pain, denies chest pressure, palpitations Respiratory: Endorses shortness of breath, cough. Denies sputum production. denies difficulty breathing Gastrointestinal: Denies abdominal pain, nausea, vomiting, constipation. Endorses loose BMs +diarrhea today Genitourinary: Denies pain with urination Musculoskeletal: Endorses weakness, rib pain. Denies other joint/muscle pain this morning. Neurological: Denies headache, confusion this morning. Physical Exam Physical Exam: General: Alert oriented to name, date, and place. NAD. HEENT: Atraumatic, normocephalic. PERLAA. Pulm: Diminished air movement. Diffuse rhonchi. Symmetrical chest rise. Chest tube present draining serosanginous fluid. Cardiac: RRR, -mrg. Radial pulses intact and symmetrical. Abdominal: Obese, soft. BS present. Large hematoma continues to be present at R flank at ribs 8-10. Supraumbilical hematoma present. Ext: Skin warm, dry. Pitting edema in lower extremities bilaterally. Cap refill 2 seconds. Results & Data Vital Signs (Past 12 Hours) Vital Signs Temp Pulse Pulse Resp BP Pulse Ox 06/16/18 06:17 89 100/49 L 97 06/16/18 06:01 89 20 73/51 L 97 06/16/18 05:00 82 19 75/47 L 97 06/16/18 04:00 36.4 C L 81 20 100/52 L 95 06/16/18 03:00 95 H 20 80/53 L 99 06/16/18 02:00 84 18 92/47 L 100 06/16/18 01:00 88 16 83/49 L 97 06/16/18 00:00 36.4 C L 88 18 82/49 L 97 06/15/18 23:00 90 16 74/55 L 95 06/15/18 22:00 91 H 18 85/55 L 92 06/15/18 21:00 93 H 20 105/51 L 99 06/15/18 20:00 36.4 C L 91 H 98 H 19 98 06/15/18 19:39 85 22 95 06/15/18 19:00 91 H 20 86/57 L 98 Laboratory Results 06/16/18 06/16/18 06/16/18 Range/Units 19:54 11:46 02:42 WBC (4.8-10.8) K/uL RBC (4.7-6.1) M/uL Hgb (14.0-18.0) g/dL Hct (42-52) % MCV (80-100) fL MCH (25-34) pg MCHC (32-36) g/dL RDW Std Deviation (36.4-46.3) fL RDW Coeff of Zack (11.5-14.5) % Plt Count (130-400) K/uL MPV (7.4-10.4) fL Immature Gran % (Auto) % Neut % (Auto) % Lymph % (Auto) % Rich % (Auto) % Eos % (Auto) % Baso % (Auto) % Immature Gran # (Auto) (0.00-0.02) K/uL Neut # (Auto) (1.4-6.5) K/uL Lymph # (Auto) (1.2-3.4) K/uL Rich # (Auto) (0.11-0.59) K/uL Eos # (Auto) (0-0.5) K/uL Baso # (Auto) (0-0.2) K/uL APTT Pending 29.4 118.8 H* (21.0-31.0) Seconds PTT Ratio Pending 1.1 4.4 Sodium (136-145) mmol/L Potassium (3.5-5.1) mmol/L Chloride (98-107) mmol/L Carbon Dioxide (21-32) mmol/L Anion Gap (3-11) BUN (7-18) mg/dl Creatinine (0.6-1.4) mg/dl Est Cr Clr Drug Dosing ml/min Est GFR ( Amer) Est GFR (Non-Af Amer) BUN/Creatinine Ratio (10-20) Glucose (70-99) mg/dl Calcium (8.5-10.1) mg/dl Phosphorus (2.5-4.9) mg/dl Magnesium (1.8-2.4) mg/dl Ammonia (11-32) umol/L 06/16/18 06/16/18 06/16/18 Range/Units 01:58 01:58 01:58 WBC 9.26 (4.8-10.8) K/uL RBC 2.91 L (4.7-6.1) M/uL Hgb 8.9 L (14.0-18.0) g/dL Hct 26.1 L (42-52) % MCV 89.7 (80-100) fL MCH 30.6 (25-34) pg MCHC 34.1 (32-36) g/dL RDW Std Deviation 59.4 H (36.4-46.3) fL RDW Coeff of Zack 18.5 H (11.5-14.5) % Plt Count 124 L (130-400) K/uL MPV 10.0 (7.4-10.4) fL Immature Gran % (Auto) 0.8 % Neut % (Auto) 60.0 % Lymph % (Auto) 18.9 % Rich % (Auto) 18.3 % Eos % (Auto) 1.9 % Baso % (Auto) 0.1 % Immature Gran # (Auto) 0.07 H (0.00-0.02) K/uL Neut # (Auto) 5.56 (1.4-6.5) K/uL Lymph # (Auto) 1.75 (1.2-3.4) K/uL Rich # (Auto) 1.69 H (0.11-0.59) K/uL Eos # (Auto) 0.18 (0-0.5) K/uL Baso # (Auto) 0.01 (0-0.2) K/uL APTT (21.0-31.0) Seconds PTT Ratio Sodium 131 L (136-145) mmol/L Potassium 4.0 (3.5-5.1) mmol/L Chloride 96 L (98-107) mmol/L Carbon Dioxide 28 (21-32) mmol/L Anion Gap 7.0 (3-11) BUN 38 H (7-18) mg/dl Creatinine 3.80 H (0.6-1.4) mg/dl Est Cr Clr Drug Dosing 23.9 ml/min Est GFR ( Amer) 17.8 Est GFR (Non-Af Amer) 15.3 BUN/Creatinine Ratio 10.1 (10-20) Glucose 116 H (70-99) mg/dl Calcium 7.9 L (8.5-10.1) mg/dl Phosphorus 4.8 (2.5-4.9) mg/dl Magnesium 2.4 (1.8-2.4) mg/dl Ammonia 63.0 H (11-32) umol/L Medications Administered Current Inpatient Medications Acetaminophen (Tylenol) 650 mg PO Q6H PRN PRN Reason: Mild Pain Stop: 07/16/18 10:43 Albuterol (Duoneb) 3 ml NEB QIDR [facility] Stop: 07/02/18 15:59 Last Admin: 06/16/18 19:22 Dose: 3 ml Documented by: Amiodarone HCl (Cordarone) 200 mg PO BID [facility] Stop: 07/15/18 12:29 Last Admin: 06/16/18 08:53 Dose: 200 mg Documented by: Budesonide/Formoterol Fumarate (Symbicort 160mcg/4.5mcg) 2 puffs INH BID [facility] Stop: 07/05/18 08:59 Last Admin: 06/09/18 20:16 Dose: 2 puffs Documented by: Docusate Sodium (Colace) 100 mg PO BID PRN PRN Reason: CONSTIPATION Stop: 07/13/18 08:59 Famotidine (Pepcid) 20 mg OG QAM [facility] Stop: 07/10/18 08:59 Last Admin: 06/16/18 08:53 Dose: 20 mg Documented by: Heparin Sodium (Beef Lung) (Heparin Sod 10 Unit/Ml Flush) 5 ml FLUSH PRN PRN PRN Reason: Flush Stop: 07/12/18 00:36 Heparin Sodium/Dextrose (Heparin Sodium/Dextrose) 25,000 units in 500 mls @ 22 mls/hr IV .[id number] [facility]; Protocol Stop: 07/10/18 16:29 Last Titration: 06/16/18 13:07 Dose: 1,100 units/hr, 22 mls/hr Documented by: Sodium Chloride (Nss) 250 mls @ 15 mls/hr IV .[id number] PRN PRN Reason: For Transfusion Stop: 07/15/18 08:59 Cefazolin Sodium (Ancef 3000mg) 72.5 mls @ 3.75 mls/min IV PREOP [facility]; Protocol Stop: 06/18/18 14:00 Lactulose (Chronulac) 30 gm PO Q4H PRN PRN Reason: encephalopathy Stop: 07/14/18 09:59 Last Admin: 06/16/18 05:38 Dose: 30 gm Documented by: Lidocaine (Lidoderm 5%) 1 patch TD QAM [facility] Stop: 07/02/18 16:29 Last Admin: 06/16/18 08:53 Dose: 1 patch Documented by: Midodrine (Proamatine) 10 mg PO TID@0600,1000,1400 [facility] Stop: 07/15/18 13:59 Last Admin: 06/16/18 14:04 Dose: 10 mg Documented by: Miscellaneous (Remove Lidoderm Patch) 1 ea N/A HS [facility] Stop: 07/11/18 20:59 Last Admin: 06/15/18 20:31 Dose: 1 ea Documented by: Ondansetron HCl (Zofran) 4 mg IV Q6H PRN PRN Reason: Nausea Stop: 07/02/18 15:53 Oxycodone HCl (Roxicodone Immediate Rel) 5 mg PO Q6H PRN PRN Reason: Moderate Pain (4,5,6) Stop: 06/30/18 10:31 Oxycodone HCl (Roxicodone Immediate Rel) 10 mg PO Q6H PRN PRN Reason: Severe Pain (7,8,9,10) Stop: 06/30/18 10:31 Last Admin: 06/16/18 18:07 Dose: 10 mg Documented by: Polyethylene Glycol (Miralax Powder Packet) 17 gm PO DAILY PRN PRN Reason: CONSTIPATION Stop: 07/11/18 08:59 Sennosides (Senokot) 17.2 mg PO QAM PRN PRN Reason: CONSTIPATION Stop: 07/13/18 08:59 Resident Activity Tracking Resident Involvement: Resident Care Provided Care Provided: Adult Hospital Medicine
[2018-06-16] MEDS ORDERED: ACETAMINOPHEN 325 MG TAB PO PRN (10:44)
[2018-06-16] MEDS ORDERED: LIDOCAINE HCL 1% 20 ML VIAL ONE (11:10)
--- NOTE | 2018-06-16 11:38 | Family Medicine Progress Note ---
Date of Service June 16, 2018 Assessment & Plan (1) Anuria and oliguria: Patient in ICU status post cardiac arrest Cardiac Arrest secondary to ventricular dysrhythmia -Coni of arrest rhythm not entirely clear, cardiology on board Dr. Garcia, believes patient will likely need pacer/defibrillator prior to d/c -Holding atenolol and metoprolol status post arrest with preceding bradycardia -Transitioned to oral amiodarone for concern of V fib noted on monitor Permanent Atrial fibrillation -Not on AC due to h/o cirrhosis and elevated INR -placed on heparin drip here Mild elevation of Troponin/LHC proven CAD -Likely demand ischemia Cardiogenic Shock - Able to wean off pressors today - WIll likely be able to be stepped down CHF with right side pleural effusion Dialysis should help with fluid burden Respiratory failure s/p arrest Now extubated Requiring less Supplemental O2 PRN to maintain sats currently on just 1 L COPD (chronic obstructive pulmonary disease): Continue home inhalers - Dulera Budesonide nebs DuoNebs q 6 hours Albuterol q 2 hours PRN Hemothorax secondary to trama/Pneumothorax after central line Patient with recurrent hemothorax, Chest tube continues to drain, tube to be pulled today. had new pneumothorax after central line placement. Chest X ray shows very small shrinking pneumothorax (trace) Multiple fractures of ribs: Patient with fractures of ribs 7-10 mid-axillary line, diagnosed by CT during last hospital admission. secondary to severe coughing in setting of recent PNA/bronchitis Versus previous episodes of arrhythmia causing syncope Pain well controlled today Acute renal failure - Ischemic ATN -Dialysis started through RIJ central line, creatinine and electrolytes improved -- Killian to gravity -- Urine output remains low with high obligatory intake -- Document strict I/O's -- Additional 1-2 L UF as tolerated -- Repeat metabolic profile tomorrow AM -- Medications appropriately dosed for kidney function -- Nephro to discuss permacath placement if no meaningful renal recovery by tomorrow. Hyponatremia: -- Hypervolemic Poor solute intake, high obligatory fluid intake Acute blood loss anemia secondary to hemothorax : -- Hgb remains <8 PRBC transfusion support can be provided with HD as needed Cirrhosis: Patient with history of liver cirrhosis thought to be secondary to EtOH abuse. Child Class B, MELD score =11. Anasarca. Patient has been on multiple courses of Prednisone over the past month which is most likely contributing to fluid retention. No sign of decompensated cirrhosis. HCC MRI performed on 01/11/18 with two lesions suspicious for HCC. AFP level on 04/29/18 was 22.8 (relatively stable, was 27.9 on 07/23/17 and 18.9 on 01/18/18). Patient reports that he follows with Dr. Petty for this and has been doing well. PT/OT recommend acute rehab F/E/N -full liquid diet today Ppx -currently on hold Code -Full per discussion with patient Dispo -ICU currently may step down to PCU/Tele later today if continues to hold stable. (2) CAD (coronary artery disease): (3) Admitted to intensive care unit: (4) Cardiac arrest: (5) COPD (chronic obstructive pulmonary disease): (6) CHF (congestive heart failure): (7) History of thoracentesis: (8) Multiple fractures of ribs: (9) Hemothorax: (10) Respiratory distress: (11) Cirrhosis: (12) Cellulitis of leg: Supervising Physician Co-Signing Physician Notes Resident Physician Supervision Note: I independently interviewed and examined the patient and verified the james history and physical, reviewed labs and image studies, discussed the case with the resident Dr. Bond and agree with the findings and care plan. Subjective Santos is much more lucid today, though very tired. He was able to express himself clearly compared to the previous several days. Tells me he's feeling okay with a lot of rib pain and his breathing feels better. Talked about dialysis and what that means and he asked about the [facility] [place]. Review of Systems Review of Systems: Unobtainable due to reduced consciousness (Got above, though patient was very somnolent.) Physical Exam Constitutional: + ill appearing and + morbidly obese; no acute distress Eyes: + scleral abnormality (jaundiced) and PERRL Neck: normal visual inspection Respiratory: normal respiratory effort Auscultation: + crackles and + wheezes Cardiovascular: Rate/Rhythm: + abnormal rhythm Heart Sounds: no click, no gallop, no murmur and no cardiac rub Vessels: normal peripheral pulses Gastrointestinal (Abdomen): Inspection/Auscultation: + abdomen distended and normal bowel sounds Percussion/Palpation: + abdomen tender (flank), abdomen soft and + ascites Skin: + jaundice Neurologic: PERRL, EOMI, accommodation nl, no face palsy, no dysarthria Results & Data Vital Signs (Past 12 Hours) Vital Signs Temp Pulse Pulse Resp BP BP Pulse Ox 06/16/18 11:03 76 18 97 06/16/18 09:00 90 114/78 96 06/16/18 08:00 97 H 95/57 L 94 06/16/18 07:07 90 18 98 06/16/18 07:00 36.9 C 79 92/51 L 97 06/16/18 06:17 89 100/49 L 97 06/16/18 06:01 89 20 73/51 L 97 06/16/18 05:00 82 19 75/47 L 97 06/16/18 04:00 36.4 C L 81 20 100/52 L 95 06/16/18 03:00 95 H 20 80/53 L 99 06/16/18 02:00 84 18 92/47 L 100 06/16/18 01:00 88 16 83/49 L 97 06/16/18 00:00 36.4 C L 88 18 82/49 L 97 Resident Activity Tracking Resident Involvement: Resident Care Provided Care Provided: Adult Hospital Medicine (1) Multiple fractures of ribs Encounter type: initial encounter Fracture type: closed Laterality: right Qualified Code(s): S22.41XA - Multiple fractures of ribs, right side, initial encounter for closed fracture (2) Cirrhosis Ascites presence: with ascites Hepatic cirrhosis type: alcoholic cirrhosis Qualified Code(s): K70.31 - Alcoholic cirrhosis of liver with ascites
[2018-06-16] MEDS: OXYCODONE HCL IR 5 MG TAB (IMMEDIATE RELEASE) PO PRN ×3 (11:56→20:44)
[2018-06-16 12:07] LABS: Partial Thromboplastin Ratio 1.1; Partial Thromboplastin Time 29.4 Seconds (21.0-31.0)
--- NOTE | 2018-06-16 13:55 | Consultation ---
Date of Consultation June 16, 2018 Assessment & Plan (1) Acute kidney injury: Patient for insertion of permcath on thursday. Would appreciate if the temp line can be d/c'd after dialysis on . I have discussed the risks options and benefits of the procedure with the patient. The patient understands the risks options and benefits and agrees to the procedure. Thank you very much for letting us participate in the care of this patient. History of Present Illness Reason for Consultation: Acute kidney injury Attending Physician: Vicky Morgan MD History of Present Illness This is a 59-year-old gentleman who was admitted with rib fractures. He is subsequently had a cardiac arrest during his hospital stay. Since that time he is developed acute kidney injury necessitating dialysis through a temporary catheter. Allergies Allergy/AdvReac Type Severity Reaction Status Date / Time No Known Allergies Allergy Verified 06/02/18 10:50 Home Medications Home Medications Medication Instructions Recorded Confirmed Type atenolol 100 mg PO BID 01/06/18 06/02/18 History folic acid 7 mg PO QAM 01/06/18 06/02/18 History furosemide 40 mg PO QAM 01/06/18 06/02/18 History potassium chloride 20 mg PO QID 01/06/18 06/02/18 History umeclidinium-vilanterol [Anoro 1 puff INHALATION QAM 01/06/18 06/02/18 History Ellipta] pantoprazole 40 mg PO QAM 05/15/18 06/02/18 History albuterol sulfate 2 puff INH Q6H PRN 05/21/18 06/02/18 History ergocalciferol (vitamin D2) 50,000 unit PO WK 05/21/18 06/02/18 History [Vitamin D2] oxycodone [OxyContin] 10 mg PO Q12 PRN 06/02/18 06/02/18 History prednisone 10 mg PO QAM 06/02/18 06/02/18 History sodium chloride 2 g PO BID 06/02/18 06/02/18 History spironolactone 50 mg PO BID 06/02/18 06/02/18 History Patient History Medical History Hypertension COPD (chronic obstructive pulmonary disease) CHF (congestive heart failure) Ascites (Acute) Asthmatic bronchitis (Acute) Cellulitis of leg Chest pain (Acute) Claudication (Acute) GI bleed (Resolved) Hyponatremia (Acute) Hypoxia (Acute) Rapid atrial fibrillation (Acute) Surgical History History of thoracentesis Family History Other Family history non-contributory Social History Preferred Language: Persian Communication Ability: Effective Visual Impairment: No Limitations Hearing Ability: Normal Glaze Maker Required: No Beliefs That Will Affect Care: None marital status: Current Living Situation: Spouse current occupational status: retired Other Information That Helps Us Care for You: No Feels Safe at Home: Yes Safety Concerns: Feels Safe At This Time Smoking Status: Current every day smoker Tobacco Type: cigarettes Cigarettes Per Day: 20 Tobacco Cessation Education Requested by Patient: No Hx Alcohol Use: No Hx Substance Use: No Review of Systems Constitutional: no weight loss Respiratory: + dyspnea, + pain on inspiration and + pain with cough Cardiovascular: no problem reported Gastrointestinal: no problem reported Neurologic: no problem reported Psychiatric: no problem reported Physical Exam Constitutional: WD/WN, vitals as above well developed and well nourished Respiratory: normal respiratory effort; no respiratory distress Auscultation: + crackles Cardiovascular: Rate/Rhythm: + irregularly irregular Gastrointestinal (Abdomen): Inspection/Auscultation: abdomen normal to inspection Percussion/Palpation: abdomen soft; abdomen nontender Musculoskeletal: Extremities: extremities normal to inspection Neurologic: normal touch/pain/proprioception and CN's II-XI intact bilaterally Motor/Sensory: normal movement Psychiatric: Orientation: alert and oriented x 3 Results & Data Vital Signs (Past 12 Hours) Vital Signs Temp Pulse Pulse Resp BP BP Pulse Ox 06/16/18 11:03 76 18 97 06/16/18 09:00 90 114/78 96 06/16/18 08:00 97 H 95/57 L 94 06/16/18 07:07 90 18 98 06/16/18 07:00 36.9 C 79 92/51 L 97 06/16/18 06:17 89 100/49 L 97 06/16/18 06:01 89 20 73/51 L 97 06/16/18 05:00 82 19 75/47 L 97 06/16/18 04:00 36.4 C L 81 20 100/52 L 95 06/16/18 03:00 95 H 20 80/53 L 99 06/16/18 02:00 84 18 92/47 L 100
[2018-06-16] MEDS ORDERED: HEPARIN IV BOLUS 7,000 UNITS in SYRINGE 0 ML IV ONE (14:00)
--- NOTE | 2018-06-16 16:52 | Progress Note ---
DATE: 06/16/2018 The patient looks quite bad actually. He is not really answering questions. He is off the ventilator. He is requiring oxygen. He is on renal replacement therapy. He drained about a liter of fluid; however, I believe that pulling his chest tube would be the best thing. There is no insight here and it is not helping his fluid status. We are going to pull his chest tube and suture the site shut, so that he does not drain fluid out of it. I have discussed this with the patient's significant other. NANNETTE
[2018-06-16 20:20] LABS: Partial Thromboplastin Ratio 1.5
[2018-06-16] MEDS ORDERED: HEPARIN IV BOLUS 4,000 UNITS in SYRINGE 0 ML IV ONE (20:45)
[2018-06-17] MEDS: OXYCODONE HCL IR 5 MG TAB (IMMEDIATE RELEASE) PO PRN ×3 (00:12→14:08)
[2018-06-17] MEDS: Heparin Adult STANDARD Wt-Based Dextrose 5% 25,000 units/500 mL IV SCH (05:12)
[2018-06-17] MEDS: MIDODRINE HCL 10 MG TAB PO SCH ×3 (05:12→14:08)
[2018-06-17 05:45] LABS: Partial Thromboplastin Ratio 1.1; Partial Thromboplastin Time 29.3 Seconds (21.0-31.0)
[2018-06-17] MEDS ORDERED: HEPARIN IV BOLUS 7,000 UNITS in SYRINGE 0 ML IV ONE (06:15)
[2018-06-17] MEDS ORDERED: SODIUM CHLORIDE 0.9% 1000ML 1,000 ML IV PRN (07:00)
[2018-06-17 07:04] LABS: Hematocrit (blood only) 27.8 % (42-52); Hemoglobin 9.7 g/dL (14.0-18.0); Mean Corpuscular Hgb Conc 34.9 g/dL (32-36); Mean Corpuscular Volume 88.3 fL (80-100); Mean Platelet Volume 10.4 fL (7.4-10.4); Nucleated RBC # (auto) 0.02 K/uL (0-0); Nucleated RBC % (auto) 0.3 %; Platelet Count 162 K/uL (130-400); RDW Coefficient of Variation 18.3 % (11.5-14.5); RDW Standard Deviation 58.4 fL (36.4-46.3); Red Blood Count 3.15 M/uL (4.7-6.1); White Blood Count 9.35 K/uL (4.8-10.8)
--- NOTE | 2018-06-17 07:08 | XRay Report ---
XR chest 1V portable CLINICAL HISTORY: effusion COMPARISON STUDY: 06/15/2018 FINDINGS: The right subclavian central venous catheter has been removed. There is a right internal ju gular dual-lumen central venous catheter. Nasogastric tube has been removed. The cardiac and mediasti nal contours remain stable. There are multiple right-sided rib fractures. There is slight increase in the size of the right pleural effusion. The right chest tube is been removed. No pneumothorax is vis ualized. Right lung opacities, likely represent a combination of interfissural fluid and atelectatic change.[ IMPRESSION: 1. Interval removal of the right subclavian central venous catheter, chest tube, and nasogastric tube . 2. Multiple right-sided rib fractures 3. Slight increase in the size of the right pleural effusion 4. No pneumothorax identified 5. Right lung opacities, likely representing a combination of interfissural fluid and atelectatic mackenzie nge Electronically signed by: Rolo Guillen M.D. 06/17/2018 7:07 AM
[2018-06-17] MEDS: ALBUT/IPRATROP 3MG/0.5MG NEB 3 ML VIAL NEB SCH ×4 (07:12→19:18)
[2018-06-17 07:33] LABS: Albumin Level 2.2 gm/dl (3.4-5.0); BUN Creatinine Ratio 10.9 (10-20); Calcium 8.2 mg/dl (8.5-10.1); Creatinine Clr Calc Pharmacy 17.2 ml/min; Est GFR (African American) 11.7; Est GFR (Non-African American) 10.1; Phosphorus 6.5 mg/dl (2.5-4.9); Potassium 4.7 mmol/L (3.5-5.1)
[2018-06-17] MEDS: FAMOTIDINE 20 MG TAB OG SCH (08:00)
[2018-06-17] MEDS: LIDOCAINE 5% 1 PATCH TD SCH (08:00)
--- NOTE | 2018-06-17 09:27 | Nephrology Progress Note ---
Date of Service June 17, 2018 Assessment & Plan (1) Acute kidney injury: -- Consistent with ischemic ATN and HRS -- First HD treatment provided 06/13/18 via non tunneled catheter -- Remains anuric -- Bladder scan q 6 hours -- RA duplex requested -- Remains hypervolemic -- Document strict I/O's -- HD orders reviewed with dialysis nurse, Qb acceptable; UF goal 3 L as tolerated -- Non tunneled catheter to be removed post treatment -- Vascular planning permcath placement tomorrow -- Repeat metabolic profile tomorrow AM -- Medications appropriately dosed for kidney function -- Plan next HD treatment for Thursday (2) Cardiac arrest: (3) Hemothorax: -- 1 u PRBC provided with HD 06/15/18 -- Chest tube removed (4) CHF (congestive heart failure): (5) Permanent atrial fibrillation: (6) Cirrhosis: -- Prognosis guarded (7) Right rib fracture: (8) Pleural effusion, right: Subjective Mr. Zarco was seen and evaluated during hemodialysis this morning. He is tolerating dialysis well. No acute events overnight. Breathing reported as comfortable. Rib pain persists. Urine output remains minimal. No fevers or chills. Review of Systems Review of Systems: All systems reviewed & are unremarkable except as noted in HPI & below limited due to confusion and mental status changes Physical Exam Constitutional: + ill appearing, + obese and + edematous Eyes: no scleral abnormality and no corneal abnormality ENMT: Mouth: no oral mucosal abnormality and oral mucous membranes not dry Neck: normal visual inspection and trachea midline Respiratory: + tachypneic; no respiratory distress Auscultation: + rhonchi Cardiovascular: Rate/Rhythm: regular rate Heart Sounds: normal S1 and normal S2 Extremities: + edema Gastrointestinal (Abdomen): Inspection/Auscultation: + abdomen distended and normal bowel sounds Percussion/Palpation: abdomen nontender Musculoskeletal: Extremities: no cyanosis and no clubbing Skin: normal turgor; no rashes Neurologic: Motor/Sensory: no tremor and no asterixis Psychiatric: Orientation: + not oriented to place and + not oriented to time Results & Data Vital Signs (Past 12 Hours) Vital Signs Temp Pulse Pulse Resp BP BP Pulse Ox 06/17/18 09:00 84 112/55 L 06/17/18 08:41 37.0 C 86 06/17/18 07:14 37.1 C 79 17 83/45 L 100 06/17/18 04:03 36.5 C 78 19 103/56 L 93 06/17/18 01:41 79 06/16/18 23:14 36.5 C 87 21 106/68 94 Laboratory Results Laboratory Results - last 24 hr 06/16/18 06/16/18 06/17/18 11:46 19:54 05:18 WBC 9.35 RBC 3.15 L Hgb 9.7 L Hct 27.8 L MCV 88.3 MCH 30.8 MCHC 34.9 RDW Std Deviation 58.4 H RDW Coeff of Zack 18.3 H Plt Count 162 MPV 10.4 Absolute Nucleated RBC 0.02 H Nucleated RBC % (auto) 0.3 APTT 29.4 41.0 H PTT Ratio 1.1 1.5 Sodium Potassium Chloride Carbon Dioxide Anion Gap BUN Creatinine Est Cr Clr Drug Dosing Est GFR ( Amer) Est GFR (Non-Af Amer) BUN/Creatinine Ratio Glucose Calcium Phosphorus Albumin 06/17/18 06/17/18 05:18 05:19 WBC RBC Hgb Hct MCV MCH MCHC RDW Std Deviation RDW Coeff of Zack Plt Count MPV Absolute Nucleated RBC Nucleated RBC % (auto) APTT 29.3 PTT Ratio 1.1 Sodium 128 L Potassium 4.7 D Chloride 92 L Carbon Dioxide 26 Anion Gap 10.0 BUN 58 H D Creatinine 5.36 H* D Est Cr Clr Drug Dosing 17.2 Est GFR ( Amer) 11.7 Est GFR (Non-Af Amer) 10.1 BUN/Creatinine Ratio 10.9 Glucose 102 H Calcium 8.2 L Phosphorus 6.5 H D Albumin 2.2 L (1) Cirrhosis Hepatic cirrhosis type: alcoholic cirrhosis Ascites presence: with ascites Qualified Code(s): K70.31 - Alcoholic cirrhosis of liver with ascites (2) Right rib fracture Encounter type: initial encounter Fracture type: closed Rib fracture type: multiple ribs Qualified Code(s): S22.41XA - Multiple fractures of ribs, right side, initial encounter for closed fracture
--- NOTE | 2018-06-17 10:55 | Surgery Progress Note ---
Date of Service June 17, 2018 Assessment & Plan (1) Pleural effusion, right: -chest tube that was previously placed for pneumothorax has been removed on 06/16/18 -CXR today does not show significant re-accumulation of pleural fluid Subjective Pt. notes he has not had worsening SOB since chest tube removed yesterday. Physical Exam Respiratory: no labored breathing and does not use accessory muscles BS are decreased at bases Results & Data Vital Signs (Past 12 Hours) Vital Signs Temp Pulse Pulse Resp BP BP Pulse Ox 06/17/18 10:20 88 133/50 L 06/17/18 10:00 90 104/42 L 06/17/18 09:40 86 104/55 L 06/17/18 09:20 76 88/43 L 06/17/18 09:00 84 112/55 L 06/17/18 08:41 37.0 C 86 06/17/18 07:14 37.1 C 79 17 83/45 L 100 06/17/18 04:03 36.5 C 78 19 103/56 L 93 06/17/18 01:41 79 06/16/18 23:14 36.5 C 87 21 106/68 94
[2018-06-17] MEDS: AMIODARONE 200 MG TAB PO SCH ×2 (12:41→21:05)
--- NOTE | 2018-06-17 12:54 | Family Medicine Progress Note ---
Date of Service June 17, 2018 Assessment & Plan (1) Acute kidney injury: Cardiac Arrest secondary to ventricular dysrhythmia -Coni of arrest rhythm not entirely clear, cardiology on board Dr. Garcia, believes patient will likely need pacer/defibrillator prior to d/c -Holding atenolol and metoprolol status post arrest with preceding bradycardia -Transitioned to oral amiodarone for concern of V fib noted on monitor Hypotension after removing dialysis catheter. - Systolic of 60. Unable to give IVF considering he is still hypervolemic. Kept on trendelenberg position for 20min and slowly BP improved. Respiratory failure s/p arrest -Now extubated -Requiring less Supplemental O2 PRN to maintain sats currently on just RA, required oxymask overnight Permanent Atrial fibrillation -Not on AC due to h/o cirrhosis and elevated INR -placed on heparin drip here Mild elevation of Troponin/LHC proven CAD -Likely demand ischemia Cardiogenic Shock - Able to wean off pressors 06/16 --> on tele now CHF with right side pleural effusion -Dialysis should help with fluid burden COPD (chronic obstructive pulmonary disease): -Continue home inhalers - Dulera -Budesonide nebs -DuoNebs q 6 hours -Albuterol q 2 hours PRN Hemothorax 2/ trauma/Pneumothorax after central line -Patient with recurrent hemothorax. Had new pneumothorax after central line placement. -chest tube that was previously placed for pneumothorax removed 06/16 -CXR today does not show significant re-accumulation of pleural fluid Multiple fractures of ribs -Patient with fractures of ribs 7-10 mid-axillary line, diagnosed by CT during last hospital admission. Secondary to severe coughing in setting of recent PNA/bronchitis vs previous episodes of arrhythmia causing syncope -Pain well controlled today Acute renal failure - Ischemic ATN -Dialysis started through [facility] central line, creatinine and electrolytes improved - HD treatment today via non tunneled catheter. Will remove today --> Vascular: permacath placement tomorrow - Plan next HD treatment for Thursday - Killian to gravity - Urine output remains low - anuric today - Bladder scan q 6 hours - Document strict I/O's - Repeat metabolic profile tomorrow AM - Medications appropriately dosed for kidney function - RA duplex today- pending Hyponatremia -Hypervolemic -Poor solute intake, high obligatory fluid intake -128 today, will cont to trend Acute blood loss anemia secondary to hemothorax - Hgb improved 9.7 today. Will cont to trend - PRBC transfusion support can be provided with HD as needed Cirrhosis -Patient with history of liver cirrhosis thought to be secondary to EtOH abuse. Child Class B, MELD score =11. -Anasarca. Patient has been on multiple courses of Prednisone over the past month which is most likely contributing to fluid retention. -No sign of decompensated cirrhosis. HCC -MRI performed on 01/11/18 with two lesions suspicious for HCC. AFP level on 04/29/18 was 22.8 (relatively stable, was 27.9 on 07/23/17 and 18.9 on 01/18/18). Patient reports that he follows with Dr. Petty for this and has been doing well. FEN/GI: Full Liquid Diet, NPO at midnight DVT Prophylaxis: Currently on hold Dispo: Cont on PCU/Tele. PT/OT recommend acute rehab on d/c Full Code Supervising Physician Co-Signing Physician Notes Resident Physician Supervision Note: I independently interviewed and examined the patient and verified the james history and physical, reviewed labs and image studies, discussed the case with the resident Dr. Fraser and agree with the findings and care plan. Subjective 67 y/o M found in bed this AM in NAD s/p dialysis. Reports feeling very tired after dialysis and wants to sleep. Agreeable to plan for removing nontunneled cath today and permacath tomorrow. Otherwise, doing well with pain control for ribs, /10 today which is what it has been per pt. reports seems to be improving in terms of cognition, more lucid. Tolerating PO intake. Has not had any UOP today. No other acute concerns or complaints. Review of Systems Review of Systems: All systems reviewed & are unremarkable except as noted in HPI & below Physical Exam Constitutional: + ill appearing and + morbidly obese Eyes: PERRL, conjunctivae normal, anicteric sclerae ENMT: external ear and nose normal, oropharynx normal Neck: nontunneled cath in place Respiratory: Auscultation: + crackles and + wheezes Cardiovascular: abnormal rhythm Gastrointestinal (Abdomen): Inspection/Auscultation: + abdomen distended Percussion/Palpation: + abdomen tender, abdomen soft and + ascites Skin: no rashes, warm and dry Does not appear jaundiced Psychiatric: A+Ox3, euthymic affect Results & Data Vital Signs (Past 12 Hours) Vital Signs Temp Pulse Pulse Resp BP BP Pulse Ox 06/17/18 12:20 81 110/53 L 06/17/18 12:00 63 114/58 L 06/17/18 11:40 86 99/50 L 06/17/18 11:20 84 89/44 L 06/17/18 11:00 92 H 80/30 L 06/17/18 10:40 85 141/47 H 06/17/18 10:20 88 133/50 L 06/17/18 10:00 90 104/42 L 06/17/18 09:40 86 104/55 L 06/17/18 09:20 76 88/43 L 06/17/18 09:00 84 112/55 L 06/17/18 08:41 37.0 C 86 06/17/18 07:14 37.1 C 79 17 83/45 L 100 06/17/18 04:03 36.5 C 78 19 103/56 L 93 06/17/18 01:41 79 Laboratory Results Laboratory Results - last 24 hr 06/16/18 06/17/18 06/17/18 19:54 05:18 05:18 WBC 9.35 RBC 3.15 L Hgb 9.7 L Hct 27.8 L MCV 88.3 MCH 30.8 MCHC 34.9 RDW Std Deviation 58.4 H RDW Coeff of Zack 18.3 H Plt Count 162 MPV 10.4 Absolute Nucleated RBC 0.02 H Nucleated RBC % (auto) 0.3 APTT 41.0 H PTT Ratio 1.5 Sodium 128 L Potassium 4.7 D Chloride 92 L Carbon Dioxide 26 Anion Gap 10.0 BUN 58 H D Creatinine 5.36 H* D Est Cr Clr Drug Dosing 17.2 Est GFR ( Amer) 11.7 Est GFR (Non-Af Amer) 10.1 BUN/Creatinine Ratio 10.9 Glucose 102 H Calcium 8.2 L Phosphorus 6.5 H D Albumin 2.2 L 06/17/18 05:19 WBC RBC Hgb Hct MCV MCH MCHC RDW Std Deviation RDW Coeff of Zack Plt Count MPV Absolute Nucleated RBC Nucleated RBC % (auto) APTT 29.3 PTT Ratio 1.1 Sodium Potassium Chloride Carbon Dioxide Anion Gap BUN Creatinine Est Cr Clr Drug Dosing Est GFR ( Amer) Est GFR (Non-Af Amer) BUN/Creatinine Ratio Glucose Calcium Phosphorus Albumin Medications Administered Current Inpatient Medications Acetaminophen (Tylenol) 650 mg PO Q6H PRN PRN Reason: Mild Pain Stop: 07/16/18 10:43 Last Admin: 06/17/18 12:40 Dose: 650 mg Documented by: Albuterol (Duoneb) 3 ml NEB QIDR [facility] Stop: 07/02/18 15:59 Last Admin: 06/17/18 11:27 Dose: Not Given Documented by: Amiodarone HCl (Cordarone) 200 mg PO BID [facility] Stop: 07/15/18 12:29 Last Admin: 06/17/18 12:41 Dose: 200 mg Documented by: Budesonide/Formoterol Fumarate (Symbicort 160mcg/4.5mcg) 2 puffs INH BID [facility] Stop: 07/05/18 08:59 Last Admin: 06/09/18 20:16 Dose: 2 puffs Documented by: Docusate Sodium (Colace) 100 mg PO BID PRN PRN Reason: CONSTIPATION Stop: 07/13/18 08:59 Famotidine (Pepcid) 20 mg OG QAM [facility] Stop: 07/10/18 08:59 Last Admin: 06/17/18 08:00 Dose: 20 mg Documented by: Heparin Sodium (Beef Lung) (Heparin Sod 10 Unit/Ml Flush) 5 ml FLUSH PRN PRN PRN Reason: Flush Stop: 07/12/18 00:36 Heparin Sodium/Dextrose (Heparin Sodium/Dextrose) 25,000 units in 500 mls @ 33 mls/hr IV .[id number] [facility]; Protocol Stop: 07/10/18 16:29 Last Titration: 06/17/18 06:11 Dose: 1,650 units/hr, 33 mls/hr Documented by: Sodium Chloride (Nss) 250 mls @ 15 mls/hr IV .[id number] PRN PRN Reason: For Transfusion Stop: 07/15/18 08:59 Cefazolin Sodium (Ancef 3000mg) 72.5 mls @ 3.75 mls/min IV PREOP [facility]; Protocol Stop: 06/18/18 14:00 Lactulose (Chronulac) 30 gm PO Q4H PRN PRN Reason: encephalopathy Stop: 07/14/18 09:59 Last Admin: 06/16/18 05:38 Dose: 30 gm Documented by: Lidocaine (Lidoderm 5%) 1 patch TD QAM [facility] Stop: 07/02/18 16:29 Last Admin: 06/17/18 08:00 Dose: 1 patch Documented by: Midodrine (Proamatine) 10 mg PO TID@0600,1000,1400 [facility] Stop: 07/15/18 13:59 Last Admin: 06/17/18 10:57 Dose: 10 mg Documented by: Miscellaneous (Remove Lidoderm Patch) 1 ea N/A HS [facility] Stop: 07/11/18 20:59 Last Admin: 06/16/18 21:03 Dose: 1 ea Documented by: Ondansetron HCl (Zofran) 4 mg IV Q6H PRN PRN Reason: Nausea Stop: 07/02/18 15:53 Oxycodone HCl (Roxicodone Immediate Rel) 5 mg PO Q6H PRN PRN Reason: Moderate Pain (4,5,6) Stop: 06/30/18 10:31 Last Admin: 06/16/18 20:44 Dose: 5 mg Documented by: Oxycodone HCl (Roxicodone Immediate Rel) 10 mg PO Q6H PRN PRN Reason: Severe Pain (7,8,9,10) Stop: 06/30/18 10:31 Last Admin: 06/17/18 07:59 Dose: 10 mg Documented by: Polyethylene Glycol (Miralax Powder Packet) 17 gm PO DAILY PRN PRN Reason: CONSTIPATION Stop: 07/11/18 08:59 Sennosides (Senokot) 17.2 mg PO QAM PRN PRN Reason: CONSTIPATION Stop: 07/13/18 08:59 Resident Activity Tracking Resident Involvement: Resident Care Provided Care Provided: Adult Hospital Medicine
[2018-06-17 16:01] LABS: Albumin Level 2.1 gm/dl (3.4-5.0); Bilirubin Direct 1.6 mg/dl (0-0.2); Bilirubin,Total 2.6 mg/dl (0.2-1)
[2018-06-17 16:32] LABS: Partial Thromboplastin Ratio > 5.1; Partial Thromboplastin Time > 139.0 Seconds (21.0-31.0)
[2018-06-18] MEDS ORDERED: ALBUT/IPRATROP 3MG/0.5MG NEB 3 ML VIAL NEB STA (02:47)
[2018-06-18] MEDS: OXYCODONE HCL IR 5 MG TAB (IMMEDIATE RELEASE) PO PRN (03:14)
[2018-06-18 04:17] LABS: Basophils # (auto) 0.01 K/uL (0-0.2); Basophils % (auto) 0.1 %; Eosinophils # (auto) 0.15 K/uL (0-0.5); Eosinophils % (auto) 1.3 %; HCO3 ABG 23 mmol/L (19-24); Hematocrit (blood only) 28.7 % (42-52); Hemoglobin 9.6 g/dL (14.0-18.0); Immature Granulocytes # (auto) 0.24 K/uL (0.00-0.02); Immature Granulocytes % (auto) 2.1 %; Lymphocytes # (auto) 2.35 K/uL (1.2-3.4); Lymphocytes % (auto) 20.2 %; Mean Corpuscular Hgb Conc 33.4 g/dL (32-36); Mean Corpuscular Volume 89.7 fL (80-100); Mean Platelet Volume 10.9 fL (7.4-10.4); Monocytes # (auto) 2.36 K/uL (0.11-0.59); Monocytes % (auto) 20.3 %; Nucleated RBC # (auto) 0.04 K/uL (0-0); Nucleated RBC % (auto) 0.4 %; Oxygen Saturation ABG 82.1 % (90-95); PCO2 ABG 37 mmHg (35-46); PO2 ABG 49 mm/Hg (80-95); Platelet Count 174 K/uL (130-400); RDW Coefficient of Variation 18.3 % (11.5-14.5); RDW Standard Deviation 59.6 fL (36.4-46.3); White Blood Count 11.61 K/uL (4.8-10.8); pH ABG 7.42 (7.35-7.45)
[2018-06-18 04:20] LABS: Allen Test Pos (Pos)
[2018-06-18 04:53] LABS: Potassium 5.1 mmol/L (3.5-5.1)
[2018-06-18 04:54] LABS: Albumin Globulin Ratio 0.7 (0.9-2); Albumin Level 2.2 gm/dl (3.4-5.0); BUN Creatinine Ratio 9.6 (10-20); Bilirubin,Total 2.8 mg/dl (0.2-1); Calcium 8.4 mg/dl (8.5-10.1); Creatinine Clr Calc Pharmacy 17.3 ml/min; Est GFR (Non-African American) 10.3; Total Protein 5.2 gm/dl (6.4-8.2)
[2018-06-18] MEDS ORDERED: CEFAZOLIN 3000MG 72.5 ML IV SCH (06:00)
[2018-06-18] MEDS: MIDODRINE HCL 10 MG TAB PO SCH ×2 (06:09→11:52)
--- NOTE | 2018-06-18 06:29 | XRay Report ---
XR chest 1V portable HISTORY: 67 years-old Male new oxygen requirement acute hypoxia COMPARISON: Chest radiograph 06/17/2018 TECHNIQUE: Portable AP view of the chest FINDINGS: Cardiac silhouette is enlarged, unchanged. Multiple acute displaced right-sided rib fractures redemon strated. Mildly increased size of the right pleural effusion with progressed right midlung and right lung base opacities. Mild interstitial coarsening throughout the right lung is also noted. There is a suspected tiny right apical pneumothorax with pleural separation of approximately 1 mm. The left remy g is generally clear. Degenerative changes of the shoulders and spine. IMPRESSION: 1. Increased size of the right pleural effusion with increased right midlung and right lung base opac ities. 2. Multiple acute right-sided rib fractures redemonstrated. 3. Suspected tiny right apical pneumothorax. The above report was generated using voice recognition software. It may contain grammatical, syntax o r spelling errors. Electronically signed by: Jag Forrest M.D. 06/18/2018 6:28 AM
[2018-06-18] MEDS: ALBUT/IPRATROP 3MG/0.5MG NEB 3 ML VIAL NEB SCH (07:14)
--- NOTE | 2018-06-18 08:38 | Surgery Progress Note ---
Date of Service June 18, 2018 Assessment & Plan (1) Pleural effusion, right: -chest tube that was previously placed for pneumothorax has been removed on 06/16/18 -CXR today shows more accumulation of pleural fluid -as effusion felt to be due to underlying liver disease, no plans at the present time to replace chest tube Subjective Pt. currently on BiPaP, thus making difficult to obtain subjective information. Discussed with RN--respiratory status seems to be declining. Pt. is scheduled to tunneled dialysis line today. Physical Exam Physical Exam: generalized edema noted Respiratory: BS are decreased at bases; respirations aided with BiPAP Results & Data Vital Signs (Past 12 Hours) Vital Signs Temp Pulse Pulse Resp BP BP Pulse Ox 06/18/18 07:43 36.7 C 97 H 20 109/57 L 94 06/18/18 07:16 98 H 21 98 06/18/18 07:15 98 H 21 98 06/18/18 05:00 92 H 17 103/58 L 94 06/18/18 04:51 88 19 98 06/18/18 04:46 96 H 24 102/67 91 06/18/18 04:30 107 H 19 92/53 L 94 06/18/18 04:16 99 H 21 106/51 L 93 06/18/18 04:00 37.2 C 99 H 23 111/48 L 92 06/18/18 03:46 104 H 25 H 86/56 L 94 06/18/18 03:30 84 21 93/62 L 97 06/18/18 03:18 101 H 22 97 06/18/18 03:16 107 H 26 H 87/49 L 93 06/18/18 03:00 98 H 21 92/62 L 93 06/18/18 02:45 91 H 21 102/62 95 06/18/18 02:30 100 H 23 95/54 L 95 06/18/18 02:15 95 H 19 83/61 L 85 L 06/18/18 02:00 103 H 22 92/62 L 84 L 06/18/18 01:45 89 24 99/60 L 83 L 06/18/18 01:30 94 H 18 103/54 L 83 L 06/18/18 01:15 91 H 26 H 94/54 L 06/18/18 01:02 99 H 24 06/17/18 23:42 36.5 C 97 H 18 105/61 92
[2018-06-18 09:12] LABS: Partial Thromboplastin Ratio 1.1; Partial Thromboplastin Time 29.6 Seconds (21.0-31.0)
[2018-06-18] MEDS ORDERED: MoRPHine SULFATE 2 MG/ML CARP IV STA (09:24)
--- NOTE | 2018-06-18 09:35 | Progress Note ---
Date of Service June 18, 2018 Patient needed to be on bipap last night. Has been on oxymask since then. Confused this morning. at bedside - requesting to cancel catheter placement to make him comfortable. Would like to wait for rest of the family to come before withdrawing care. Code status changed to DNR in the meantime as per wishes IV morphine 2mgs ordered to help with respiratory distress. Results & Data Vital Signs (Past 12 Hours) Temp Pulse Pulse Resp BP BP Pulse Ox 06/18/18 07:43 36.7 C 97 H 20 109/57 L 94 06/18/18 07:16 98 H 21 98 06/18/18 07:15 98 H 21 98 06/18/18 05:00 92 H 17 103/58 L 94 06/18/18 04:51 88 19 98 06/18/18 04:46 96 H 24 102/67 91 06/18/18 04:30 107 H 19 92/53 L 94 06/18/18 04:16 99 H 21 106/51 L 93 06/18/18 04:00 37.2 C 99 H 23 111/48 L 92 06/18/18 03:46 104 H 25 H 86/56 L 94 06/18/18 03:30 84 21 93/62 L 97 06/18/18 03:18 101 H 22 97 06/18/18 03:16 107 H 26 H 87/49 L 93 06/18/18 03:00 98 H 21 92/62 L 93 06/18/18 02:45 91 H 21 102/62 95 06/18/18 02:30 100 H 23 95/54 L 95 06/18/18 02:15 95 H 19 83/61 L 85 L 06/18/18 02:00 103 H 22 92/62 L 84 L 06/18/18 01:45 89 24 99/60 L 83 L 06/18/18 01:30 94 H 18 103/54 L 83 L 06/18/18 01:15 91 H 26 H 94/54 L 06/18/18 01:02 99 H 24 06/17/18 23:42 36.5 C 97 H 18 105/61 92
--- NOTE | 2018-06-18 09:49 | Nephrology Progress Note ---
Date of Service June 18, 2018 Assessment & Plan (1) Acute kidney injury: -- Consistent with ischemic ATN and HRS -- First HD treatment provided 06/13/18 via non tunneled catheter -- Remains anuric -- Bladder scan q 6 hours -- RA duplex not able to be completed due to habitus -- Remains hypervolemic -- Document strict I/O's -- Patient's does not wish to continue with dialysis -- She has refused permcath placement -- Palliative care consult requestd (2) Cardiac arrest: (3) Hemothorax: -- 1 u PRBC provided with HD 06/15/18 -- Chest tube removed -- Morphine PRN dyspnea (4) CHF (congestive heart failure): (5) Permanent atrial fibrillation: (6) Cirrhosis: -- Prognosis poor (7) Right rib fracture: (8) Pleural effusion, right: Subjective Respiratory status has decompensated overnight requiring BIPAP. He remains notably encephalopathic. HD yesterday with net UF 3 L, complicated by hypotension. The patient's prognosis is guarded. I had a long conversation with the patient's and Dr. Morgan. His has refused HD catheter placement. She wants to focus on comfort care and does not want to continue dialysis. Review of Systems Review of Systems: Unobtainable due to cognitive status Physical Exam Constitutional: + ill appearing, + obese and + edematous Eyes: no scleral abnormality and no corneal abnormality ENMT: Mouth: no oral mucosal abnormality and oral mucous membranes not dry Neck: normal visual inspection and trachea midline Respiratory: + respiratory distress and + tachypneic Auscultation: + rhonchi Cardiovascular: Rate/Rhythm: regular rate Heart Sounds: normal S1 and normal S2 Extremities: + edema Gastrointestinal (Abdomen): Inspection/Auscultation: + abdomen distended and normal bowel sounds Percussion/Palpation: abdomen nontender Musculoskeletal: Extremities: no cyanosis and no clubbing Skin: normal turgor; no rashes Neurologic: Motor/Sensory: no tremor and no asterixis Psychiatric: Orientation: + not oriented to place and + not oriented to time Results & Data Vital Signs (Past 12 Hours) Vital Signs Temp Pulse Pulse Resp BP BP Pulse Ox 06/18/18 07:43 36.7 C 97 H 20 109/57 L 94 06/18/18 07:16 98 H 21 98 06/18/18 07:15 98 H 21 98 06/18/18 05:00 92 H 17 103/58 L 94 06/18/18 04:51 88 19 98 06/18/18 04:46 96 H 24 102/67 91 06/18/18 04:30 107 H 19 92/53 L 94 06/18/18 04:16 99 H 21 106/51 L 93 06/18/18 04:00 37.2 C 99 H 23 111/48 L 92 06/18/18 03:46 104 H 25 H 86/56 L 94 06/18/18 03:30 84 21 93/62 L 97 06/18/18 03:18 101 H 22 97 06/18/18 03:16 107 H 26 H 87/49 L 93 06/18/18 03:00 98 H 21 92/62 L 93 06/18/18 02:45 91 H 21 102/62 95 06/18/18 02:30 100 H 23 95/54 L 95 06/18/18 02:15 95 H 19 83/61 L 85 L 06/18/18 02:00 103 H 22 92/62 L 84 L 06/18/18 01:45 89 24 99/60 L 83 L 06/18/18 01:30 94 H 18 103/54 L 83 L 06/18/18 01:15 91 H 26 H 94/54 L 06/18/18 01:02 99 H 24 06/17/18 23:42 36.5 C 97 H 18 105/61 92 (1) Cirrhosis Hepatic cirrhosis type: alcoholic cirrhosis Ascites presence: with ascites Qualified Code(s): K70.31 - Alcoholic cirrhosis of liver with ascites (2) Right rib fracture Encounter type: initial encounter Fracture type: closed Rib fracture type: multiple ribs Qualified Code(s): S22.41XA - Multiple fractures of ribs, right side, initial encounter for closed fracture
[2018-06-18] MEDS ORDERED: MoRPHine SULFATE 2 MG/ML CARP IV PRN (09:51)
[2018-06-18] MEDS ORDERED: ALBUT/IPRATROP 3MG/0.5MG NEB 3 ML VIAL NEB PRN (10:14)
[2018-06-18] MEDS: AMIODARONE 200 MG TAB PO SCH (11:52)
[2018-06-18] MEDS: LIDOCAINE 5% 1 PATCH TD SCH (11:52)
[2018-06-18] MEDS: FAMOTIDINE 20 MG TAB OG SCH (11:52)
--- NOTE | 2018-06-18 12:52 | Palliative Care Consultation ---
Date of Consultation June 18, 2018 Assessment & Plan (1) Palliative care encounter: This is an unfortunate 67-year-old male presented initially to the hospital on 06/02 with increased SOB. He has had multiple visits to the ED in May for PNA and increased SOB, which resulted in a discovery of pleural effusions where he underwent multiple thoracentesis. Additionally, he did have a chest tube placed for hepatic hydrothorax which eventually was removed on 06/06. On 06/10, a CODE BLUE was called after he experienced bradycardia followed by V- Fib arrest. The patient was weaned from the ventilator and extubated. Additionally, he did require inotropic support which has been weaned as well and he has remained without pressors since 06/16. He has had a long few weeks of aggressive care with little meaningful improvement or recovery. Last night, his breathing worsened again and his mental status declined for which BiPAP was initiated. BiPAP was removed this morning around 0830 and he is tolerating; however, his overall meaningfulness of life has significantly declined. The patient's requested the patient be transitioned to comfort measures. Palliative Care was consulted to discuss goals of care and assist with symptom management. -I met with the patient and patients , Belle Mann, and his niece at the bedside. Patient was moaning and unable to make direct eye contact nor answer questions appropriately, likely related to hypoxia/encephalopathy -Patient indicated her of 30 years has been through enough over the past few week and 'this clearly is not getting better'. -She did state that she is 'kind of irritated' and doesn't know how to cope with this, but is gracious of the care he has received. -We discussed at length what comfort measures means and end of life anticipatory symptoms. -Prior to my arrival, the patient had received Morphine IV 2mg once for comfort. -The patient was moaning, having audible secretions and restlessness. Once discussed with the patients , I ordered a Morphine gtt with 2 mg bolus and starting at 1mg titrating every hour to comfort with a maximum dose of 10mg/hour. -Additionally, I ordered Atropine gtts 4 gtts po/sl Q3 PRN secretions. -The patient's initially was waiting for his sisters to arrive (coming from [place]) but she wanted him started on the drip prior to their arrival. -We decided to D/C all cardiac monitoring, all blood draws, and non-essential medications that did not align with a goal of comfort. -I set the expectation that the patient likely had hours to days of life. -We discussed calling folks who could not be here and she said that she would do so. -A bereavement tray was ordered and I discussed the above with Dr. Morgan and we anticipate the patient to be transferred out of PCU. -A Gone From My Sight book was given to the patient's -Palliative Performance Scale: 10% (2) Acute kidney injury: (3) Cirrhosis: Ascites presence: with ascites Hepatic cirrhosis type: alcoholic cirrhosis Qualified Code(s): K70.31 - Alcoholic cirrhosis of liver with ascites (4) COPD (chronic obstructive pulmonary disease): COPD type: unspecified COPD Qualified Code(s): J44.9 - Chronic obstructive pulmonary disease, unspecified (5) Cardiac arrest: (6) Right rib fracture: Encounter type: initial encounter Fracture type: closed Rib fracture type: multiple ribs Qualified Code(s): S22.41XA - Multiple fractures of ribs, right side, initial encounter for closed fracture Supervising Physician Co-Signing Physician Notes Chart reviewed, patient seen and examined-no family at bedside, collaborated with KATIANA Fuentes PE: Patient appears comfortable, unresponsive to voice or touch HEENT: Excess upper airway secretions Respirations: Unlabored CV: Tachycardic, positive lower extremity edema Abdomen: Soft, no grimace with palpation Extremities: Positive edema Skin: Warm to touch, no mottling Agree with above note, assessment and plan as per KATIANA Fuentes-we will continue to follow and provide emotional support to family. History of Present Illness Reason for Consultation: Goals of Care Requesting Physician: Dr. Morgan Attending Physician: Vicky Morgan MD History of Present Illness This is an unfortunate 67-year-old male presented initially to the hospital on 06/02 with increased SOB. He has had multiple visits to the ED in May for PNA and increased SOB, which resulted in a discovery of pleural effusions where he underwent multiple thoracentesis. Additionally, he did have a chest tube placed for hepatic hydrothorax which eventually was removed on 06/06. On 06/10, a CODE BLUE was called after he experienced bradycardia followed by V-Fib arrest. The patient was weaned from the ventilator and extubated. Additionally, he did require inotropic support which has been weaned as well and he has remained without pressors since 06/16. He has had a long few weeks of aggressive care with little meaningful improvement or recovery. Last night, his breathing worsened again and his mental status declined for which BiPAP was initiated. BiPAP was removed this morning around 0830 and he is tolerating; however, his overall meaningfulness of life has significantly declined. The patient's requested the patient be transitioned to comfort measures. Palliative Care was consulted to discuss goals of care and assist with symptom management. Please see Assessment and Plan for further details. Thank you kindly for involving us with the care of this unfortunate patient. We will follow as needed. Allergies Allergy/AdvReac Type Severity Reaction Status Date / Time No Known Allergies Allergy Verified 06/02/18 10:50 Home Medications Home Medications Medication Instructions Recorded Confirmed Type atenolol 100 mg PO BID 01/06/18 06/02/18 History folic acid 7 mg PO QAM 01/06/18 06/02/18 History furosemide 40 mg PO QAM 01/06/18 06/02/18 History potassium chloride 20 mg PO QID 01/06/18 06/02/18 History umeclidinium-vilanterol [Anoro 1 puff INHALATION QAM 01/06/18 06/02/18 History Ellipta] pantoprazole 40 mg PO QAM 05/15/18 06/02/18 History albuterol sulfate 2 puff INH Q6H PRN 05/21/18 06/02/18 History ergocalciferol (vitamin D2) 50,000 unit PO WK 05/21/18 06/02/18 History [Vitamin D2] oxycodone [OxyContin] 10 mg PO Q12 PRN 06/02/18 06/02/18 History prednisone 10 mg PO QAM 06/02/18 06/02/18 History sodium chloride 2 g PO BID 06/02/18 06/02/18 History spironolactone 50 mg PO BID 06/02/18 06/02/18 History Patient History Medical History Hypertension COPD (chronic obstructive pulmonary disease) CHF (congestive heart failure) Ascites (Acute) Asthmatic bronchitis (Acute) Cellulitis of leg Chest pain (Acute) Claudication (Acute) GI bleed (Resolved) Hyponatremia (Acute) Hypoxia (Acute) Rapid atrial fibrillation (Acute) Surgical History History of thoracentesis Family History Other Family history non-contributory Social History Preferred Language: Colombian Communication Ability: Effective Visual Impairment: No Limitations Hearing Ability: Normal Litigation Partner Required: No Beliefs That Will Affect Care: None marital status: Current Living Situation: Spouse current occupational status: retired Other Information That Helps Us Care for You: No Feels Safe at Home: Yes Safety Concerns: Feels Safe At This Time Smoking Status: Current every day smoker Tobacco Type: cigarettes Cigarettes Per Day: 20 Tobacco Cessation Education Requested by Patient: No Hx Alcohol Use: No Hx Substance Use: No Review of Systems Review of Systems: Unobtainable due to reduced consciousness (Patient opens his eyes and speaks, but with little meaningful response or clarity) Physical Exam Physical Exam: Patient lying in bed, moaning and restless with increased ag itation likely encephalopathic in origin Constitutional: + acute distress, + ill appearing and + in distress Eyes: + eyelid abnormality (patient openes his eyes, but eyelids glazed over eyes with eyes rolling amy) ENMT: external ear and nose normal, oropharynx normal Neck: trachea midline, no thyromegaly + thick neck Respiratory: + labored breathing (diaphragmatic breathing) Auscultation: + rales and + rhonchi Cardiovascular: Rate/Rhythm: regular rate and regular rhythm Heart Sounds: normal S1 and normal S2 Extremities: + edema (generalized ) Gastrointestinal (Abdomen): normal bowel sounds, soft, nontender, no hepato splenomegaly Skin: + pallor right arm edematous. generalized anasarca. Results & Data Vital Signs (Past 12 Hours) Vital Signs Temp Pulse Pulse Resp BP BP Pulse Ox 06/18/18 11:40 36.5 C 108 H 17 93/56 L 91 06/18/18 07:43 36.7 C 97 H 20 109/57 L 94 06/18/18 07:16 98 H 21 98 06/18/18 07:15 98 H 21 98 06/18/18 05:00 92 H 17 103/58 L 94 06/18/18 04:51 88 19 98 06/18/18 04:46 96 H 24 102/67 91 06/18/18 04:30 107 H 19 92/53 L 94 06/18/18 04:16 99 H 21 106/51 L 93 06/18/18 04:00 37.2 C 99 H 23 111/48 L 92 06/18/18 03:46 104 H 25 H 86/56 L 94 06/18/18 03:30 84 21 93/62 L 97 06/18/18 03:18 101 H 22 97 06/18/18 03:16 107 H 26 H 87/49 L 93 06/18/18 03:00 98 H 21 92/62 L 93 06/18/18 02:45 91 H 21 102/62 95 06/18/18 02:30 100 H 23 95/54 L 95 06/18/18 02:15 95 H 19 83/61 L 85 L 06/18/18 02:00 103 H 22 92/62 L 84 L 06/18/18 01:45 89 24 99/60 L 83 L 06/18/18 01:30 94 H 18 103/54 L 83 L 06/18/18 01:15 91 H 26 H 94/54 L 06/18/18 01:02 99 H 24 Time Spent Midlevel Total time spent 70 minutes with > 50% of that time spent assessing the patient, reviewing the chart, discussing end-of-life symptoms with the family and provided pain management.
[2018-06-18] MEDS ORDERED: MoRPHine SULF/NSS 250 MG/250 ML BTL IV SCH (14:05)
[2018-06-18] MEDS: ATROPINE SULFATE 1% OP SOLN 2 ML BTL OP PRN ×3 (15:14→23:44)
--- NOTE | 2018-06-18 17:46 | Family Medicine Progress Note ---
Date of Service June 18, 2018 Assessment & Plan (1) Anuria and oliguria: Cardiac Arrest Ventricular Dysrrhythmia Cardiogenic shock Respiratory Failure Permanent A fib HCC Liver Cirrhosis Traumatic hemothorax CHF- systolic Acute renal failure - Ischemic ATN - requiring Dialysis -In discussion with today, would not like to pursue any further management including permacath placement, HD. Wants comfort measures only. -Palliative Care Consulted: ordered Morphine gtt with 2 mg bolus and starting at 1mg titrating every hour to comfort with a maximum dose of 10mg/hour. Additionally, ordered Atropine gtts 4 gtts po/sl Q3 PRN secretions. -We have d/c all cardiac monitoring, all blood draws, and non-essential medications that did not align with a goal of comfort, including for problems of Afib, CHF, COPD, hyponatremia, anemia, and cirrhosis. FEN/GI: -NPO DVT Prophylaxis: None Dispo: Med surg. Palliative estimates hrs to few days left of life. DNR/DNI Supervising Physician Co-Signing Physician Notes Resident Physician Supervision Note: I independently interviewed and examined the patient and verified the james history and physical, reviewed labs and image studies, discussed the case with the resident Dr. Fraser and agree with the findings and care plan. Subjective 67 y/o M found this morning in bed. Overnight reports of requiring 6 L of oxymask, was switched to CPAP. This AM, patient was moaning, having audible secretions and restlessness. In discussion with this AM, would not like to pursue permacath placement or any further HD moving forward. Rather, just comfort care measures. No other acute concerns or complaints. Review of Systems Review of Systems: All systems reviewed & are unremarkable except as noted in HPI & below Physical Exam Constitutional: + ill appearing and + morbidly obese Eyes: PERRL, conjunctivae normal, anicteric sclerae ENMT: external ear and nose normal, oropharynx normal Respiratory: Auscultation: + crackles and + wheezes Cardiovascular: RRR, no murmur, no edema Gastrointestinal (Abdomen): Inspection/Auscultation: + abdomen distended Percussion/Palpation: + abdomen tender, abdomen soft and + ascites Skin: no rashes, warm and dry Results & Data Vital Signs (Past 12 Hours) Vital Signs Temp Pulse Pulse Resp BP Pulse Ox 06/18/18 11:40 36.5 C 108 H 17 93/56 L 91 06/18/18 07:43 36.7 C 97 H 20 109/57 L 94 06/18/18 07:16 98 H 21 98 06/18/18 07:15 98 H 21 98 Laboratory Results Laboratory Results - last 24 hr 06/18/18 06/18/18 06/18/18 04:00 04:00 04:00 WBC 11.61 H RBC 3.20 L Hgb 9.6 L Hct 28.7 L MCV 89.7 MCH 30.0 MCHC 33.4 RDW Std Deviation 59.6 H RDW Coeff of Zack 18.3 H Plt Count 174 MPV 10.9 H Immature Gran % (Auto) 2.1 Neut % (Auto) 56.0 Lymph % (Auto) 20.2 Lucas % (Auto) 20.3 Eos % (Auto) 1.3 Baso % (Auto) 0.1 Immature Gran # (Auto) 0.24 H Neut # (Auto) 6.50 Lymph # (Auto) 2.35 Lucas # (Auto) 2.36 H Eos # (Auto) 0.15 Baso # (Auto) 0.01 Absolute Nucleated RBC 0.04 H Nucleated RBC % (auto) 0.4 APTT PTT Ratio ABG pH 7.42 ABG pCO2 37 ABG pO2 49 L ABG HCO3 23 ABG O2 Saturation 82.1 L ABG Base Excess -0.9 Roderick Test Pos Oxygen Given 6l Sodium 130 L Potassium 5.1 Chloride 96 L Carbon Dioxide 24 Anion Gap 10.0 BUN 51 H Creatinine 5.27 H* Est Cr Clr Drug Dosing 17.3 Est GFR ( Amer) 12.0 Est GFR (Non-Af Amer) 10.3 BUN/Creatinine Ratio 9.6 L Glucose 104 H Calcium 8.4 L Total Bilirubin 2.8 H AST 96 H ALT 55 Alkaline Phosphatase 163 H Total Protein 5.2 L Albumin 2.2 L Globulin 3.0 Albumin/Globulin Ratio 0.7 L 06/18/18 08:51 WBC RBC Hgb Hct MCV MCH MCHC RDW Std Deviation RDW Coeff of Zack Plt Count MPV Immature Gran % (Auto) Neut % (Auto) Lymph % (Auto) Lucas % (Auto) Eos % (Auto) Baso % (Auto) Immature Gran # (Auto) Neut # (Auto) Lymph # (Auto) Lucas # (Auto) Eos # (Auto) Baso # (Auto) Absolute Nucleated RBC Nucleated RBC % (auto) APTT 29.6 PTT Ratio 1.1 ABG pH ABG pCO2 ABG pO2 ABG HCO3 ABG O2 Saturation ABG Base Excess Roderick Test Oxygen Given Sodium Potassium Chloride Carbon Dioxide Anion Gap BUN Creatinine Est Cr Clr Drug Dosing Est GFR ( Amer) Est GFR (Non-Af Amer) BUN/Creatinine Ratio Glucose Calcium Total Bilirubin AST ALT Alkaline Phosphatase Total Protein Albumin Globulin Albumin/Globulin Ratio Medications Administered Current Inpatient Medications Acetaminophen (Tylenol) 650 mg PO Q6H PRN PRN Reason: Mild Pain Stop: 07/16/18 10:43 Last Admin: 06/17/18 12:40 Dose: 650 mg Documented by: Atropine Sulfate (Atropine Sulfate 1% Oph Soln) 4 drops OP Q3H PRN PRN Reason: secretions Stop: 07/18/18 12:59 Last Admin: 06/18/18 15:14 Dose: 4 drops Documented by: Morphine Sulfate (Morphine Sulf/Nss) 250 mg in 250 mls @ 1 mls/hr IV .Q24H ALYSIA; Protocol Stop: 07/02/18 14:04 Last Titration: 06/18/18 16:41 Dose: 1 mg/hr, 1 mls/hr Documented by: Ondansetron HCl (Zofran) 4 mg IV Q6H PRN PRN Reason: Nausea Stop: 07/02/18 15:53 Oxycodone HCl (Roxicodone Immediate Rel) 5 mg PO Q6H PRN PRN Reason: Moderate Pain (4,5,6) Stop: 06/30/18 10:31 Last Admin: 06/18/18 03:14 Dose: 5 mg Documented by: Oxycodone HCl (Roxicodone Immediate Rel) 10 mg PO Q6H PRN PRN Reason: Severe Pain (7,8,9,10) Stop: 06/30/18 10:31 Last Admin: 06/17/18 14:08 Dose: 10 mg Documented by: Resident Activity Tracking Resident Involvement: Resident Care Provided Care Provided: Adult Hospital Medicine
[2018-06-18] MEDS ORDERED: SCOPOLAMINE 1.5 MG TDSY TD SCH (18:00)
[2018-06-18] MEDS: Heparin Adult STANDARD Wt-Based Dextrose 5% 25,000 units/500 mL IV SCH (23:36)
[2018-06-19] MEDS: CHECK SCOPOLAMINE PATCH PLACEMENT SCH ×2 (00:05→08:09)
[2018-06-19] MEDS: ATROPINE SULFATE 1% OP SOLN 2 ML BTL OP PRN (08:09)
--- NOTE | 2018-06-19 12:28 | Nephrology Progress Note ---
Date of Service June 19, 2018 Assessment & Plan (1) Acute kidney injury: Patient transitioned to comfort care. Support provided. Nephrology has nothing to add. Will sign off. (2) Cardiac arrest: (3) Hemothorax: (4) CHF (congestive heart failure): (5) Permanent atrial fibrillation: (6) Cirrhosis: (7) Right rib fracture: (8) Pleural effusion, right: Subjective Patient transitioned to comfort care. Review of Systems Review of Systems: Unobtainable due to mental health condition Physical Exam Physical Exam: appears comfortable. unresponsive (1) Cirrhosis Hepatic cirrhosis type: alcoholic cirrhosis Ascites presence: with ascites Qualified Code(s): K70.31 - Alcoholic cirrhosis of liver with ascites (2) Right rib fracture Encounter type: initial encounter Fracture type: closed Rib fracture type: multiple ribs Qualified Code(s): S22.41XA - Multiple fractures of ribs, right side, initial encounter for closed fracture
--- NOTE | 2018-06-19 15:14 | Family Medicine Progress Note ---
Date of Service June 19, 2018 Assessment & Plan (1) Anuria and oliguria: Cardiac arrest, acute resp failure, ATN and other Multiple comorbidites - with need for dialysis. Patient's confused last 2 days -- -In discussion with , she had wanted comfort measures only. -Pt on Morphine gtt with a maximum dose of 10mg/hour. Additionally, ordered Atropine gtts 4 gtts po/sl Q3 PRN secretions. -All cardiac monitoring, all blood draws, and non-essential medications that did not align with a goal of comfort, including for problems of Afib, CHF, COPD, hyponatremia, anemia, and cirrhosis were discontinued -At 1044 06/19, pt . Cause of immediate was respiratory failure 2/2 secretions. Underlying cause of was end stage kidney disease/congestive heart failure. -Below was the other medical management during's pt's stay here prior to comfort care measures: Cardiac Arrest secondary to ventricular dysrhythmia -Coni of arrest rhythm not entirely clear, cardiology on board Dr. Garcia, believed patient would have likely needed pacer/defibrillator prior to d/c -Held atenolol and metoprolol status post arrest with preceding bradycardia -Transitioned to oral amiodarone for concern of V fib noted on monitor Respiratory failure s/p arrest -Pt was extubated -Pt was requiring less Supplemental O2 PRN to maintain sats and was on just RA towards the end, requiring oxymask overnights Permanent Atrial fibrillation -Pt was not on AC due to h/o cirrhosis and elevated INR -placed on heparin drip here Mild elevation of Troponin/LHC proven CAD -This was likely from demand ischemia CHF with right side pleural effusion -Our thought was that dialysis should help with fluid burden COPD (chronic obstructive pulmonary disease): -We continued home inhalers - Dulera -Budesonide nebs -DuoNebs q 6 hours -Albuterol q 2 hours PRN Hemothorax 2/2 trauma/Pneumothorax after central line -Patient had recurrent hemothorax. Had new pneumothorax after central line placement. -chest tube that was previously placed for pneumothorax removed 06/16 -CXR 06/16 did not show significant re-accumulation of pleural fluid Multiple fractures of ribs -Patient had fractures of ribs 7-10 mid-axillary line, diagnosed by CT during last hospital admission. Secondary to severe coughing in setting of recent PNA/bronchitis vs previous episodes of arrhythmia causing syncope -Pain was well controlled for most part Acute renal failure - Ischemic ATN -Dialysis was started through [facility] central line, creatinine and electrolytes improved - HD treatment 06/16 via non tunneled catheter and removed with plan for permacath placement but at this point declined and moved to comfort care as above with no plans for future HD - Medications were appropriately dosed for kidney function Cirrhosis -Patient had history of liver cirrhosis thought to be secondary to EtOH abuse. Child Class B, MELD score =11. -Anasarca. Patient has been on multiple courses of Prednisone over the past month which was most likely contributing to fluid retention. -No sign of decompensated cirrhosis. Supervising Physician Co-Signing Physician Notes Resident Physician Supervision Note: I independently interviewed and examined the patient and verified the james history and physical, reviewed labs and image studies, discussed the case with the resident Dr. Fraser and agree with the findings and care plan. Subjective 67 y/o M found in bed this AM in moderate distress. Was having a lot of secretions and increased work of breathing. not at bedside. At 1044 pt passed. was informed and appropriate documentation was done. Review of Systems Review of Systems: All systems reviewed & are unremarkable except as noted in HPI & below Physical Exam Physical Exam: - Resident Activity Tracking Resident Involvement: Resident Care Provided Care Provided: Adult Hospital Medicine
--- NOTE | 2018-06-28 16:14 | Discharge Summary ---
Date of Service June 19, 2018 Admission HPI Per Admitting Provider Mr. Zarco is a 67yo C male with multiple medical problems to include liver cirrhosis secondary to EtOH and steatohepatitis, HTN, COPD, AF and CHF. Patient was initially diagnosed with PNA of the LLL in the outpatient setting on 05/11/18. He was treated with steroids and antibiotics. He was seen in the ER at [facility] on 05/15/18 with complaint of shortness of breath as well as right sided pain with coughing. He was given a DuoNeb in the ER. CT of the chest was performed which was negative for PNA, CHF or PE, no fractures or clear explanation for pain. He was discharged home with Prednisone 20mg po x 5 days, Tylenol and Albuterol PRN. He returned to the ER on 05/16/18 with complaint of right side pain. He had rib imaging which was negative for fracture or pneumothorax. He was discharged home with Oxycodone as needed for rib pain. He returned to the ER on 05/21/18 with worsening of the right sided chest pain that was unrelieved by Oxycodone. CT of the chest was done at that time which showed multiple right sided rib fractures - 7-10, midaxillary line as well as anasarca, right lateral chest wall hematoma 9x2 cm, right pleural effusion with atelectasis and a stable cirrhotic liver. The patient was admitted to the hospital. He was evaluated by Pulmonary and had a therapeutic thoracentesis performed on 05/22/18 in which 350mL of bloody fluid was removed. Pleural fluid was bloody, pH 7.35, hlf=347, HPI=890, Protein=1.9. Negative growth for acid- fast bacilli, gram stain/aerobic and anaerobic cultures. Patient was discharged home in stable condition on 05/24/18 with Oxycodone 10mg po q12 and Oxycontin 5mg po q6 PRN and Lidoderm patches as well. Also discharged on rapid Prednisone taper. Patient reports that he was doing fairly well, although still with significant pain in the right side. He reports taking Oxycodone BID and OxyIR q 6 hours with marginal pain control. This AM around 09:00 he developed severe right sided chest pain while sitting and watching TV. Pain is stabbing in nature, pleuritic, 10/10 in severity. Non-radiating. On arrival to the ER he was in AF, tachycardic at 123bpm, RR of 32, saturating 94% on room air. CXR suggestive of reaccumulation of right pleuritic fluid. The patient was evaluated by Dr. Slater of [facility] who plans for a thoracentesis later today. Patient with complaint of SOB, palpitations, abdominal pain and constipation. Additionally he reports gaining appx 15# over the last two weeks, increase in bilateral LE edema and abdominal wall edema. He reports compliance with home medications. No additional complaints at this time. ER Coures: Albuterol, Morphine 4mg IV, Zofran 4mg IV Principal Diagnosis Cardiac Arrest due to possible malignant arrythmia. Discharge Data Allergies Allergy/AdvReac Type Severity Reaction Status Date / Time No Known Allergies Allergy Verified 06/02/18 10:50 Consultations 06/02/18 11:40 ED Decision to Admit Stat 06/02/18 15:54 Consult Case Management - Discharge Planning Routine Consult Thoracic Surgery Routine 06/03/18 18:12 Consult Pain Management Routine 06/04/18 Consult Gastroenterology Routine 06/04/18 06:27 Consult Surgical Coder Routine 06/10/18 07:04 Consult Cardiology Routine 06/13/18 10:43 Consult Nephrology Routine 06/16/18 10:06 Consult Vascular Surgery Routine 06/18/18 09:24 Consult Palliative Care Routine Procedures Performed Operation Date: 06/18/18 11:45 <No data on this case meets the specified criteria> Operation Date: 06/20/18 05:00 Actual Procedures p [facility], [place] of corneas(Not Applicable) - Surgeon [place] Ordered Studies 06/02/18 15:54 CT abd pelvis wo con Routine 06/06/18 13:13 CT chest wo con Routine 06/13/18 13:03 US renal/blad retro comp Urgent 06/14/18 10:12 MR brain wo con Urgent Hospital Course (1) Anuria and oliguria: Cardiac arrest, acute resp failure, ATN and other Multiple comorbidites - with need for dialysis. Patient's confused last 2 days -- -In discussion with , she had wanted comfort measures only. -Pt on Morphine gtt with a maximum dose of 10mg/hour. Additionally, ordered Atropine gtts 4 gtts po/sl Q3 PRN secretions. -All cardiac monitoring, all blood draws, and non-essential medications that did not align with a goal of comfort, including for problems of Afib, CHF, COPD, hyponatremia, anemia, and cirrhosis were discontinued -At 1044 06/19, pt . Cause of immediate was respiratory failure 2/2 secretions. Underlying cause of was end stage kidney disease/congestive heart failure. -Below was the other medical management during's pt's stay here prior to comfort care measures: Cardiac Arrest secondary to ventricular dysrhythmia -Coni of arrest rhythm not entirely clear, cardiology on board Dr. Garcia, believed patient would have likely needed pacer/defibrillator prior to d/c -Held atenolol and metoprolol status post arrest with preceding bradycardia -Transitioned to oral amiodarone for concern of V fib noted on monitor Respiratory failure s/p arrest -Pt was extubated -Pt was requiring less Supplemental O2 PRN to maintain sats and was on just RA towards the end, requiring oxymask overnights Permanent Atrial fibrillation -Pt was not on AC due to h/o cirrhosis and elevated INR -placed on heparin drip here Mild elevation of Troponin/LHC proven CAD -This was likely from demand ischemia CHF with right side pleural effusion -Our thought was that dialysis should help with fluid burden COPD (chronic obstructive pulmonary disease): -We continued home inhalers - Dulera -Budesonide nebs -DuoNebs q 6 hours -Albuterol q 2 hours PRN Hemothorax 2/2 trauma/Pneumothorax after central line -Patient had recurrent hemothorax. Had new pneumothorax after central line placement. -chest tube that was previously placed for pneumothorax removed 06/16 -CXR 06/16 did not show significant re-accumulation of pleural fluid Multiple fractures of ribs -Patient had fractures of ribs 7-10 mid-axillary line, diagnosed by CT during last hospital admission. Secondary to severe coughing in setting of recent PNA/bronchitis vs previous episodes of arrhythmia causing syncope -Pain was well controlled for most part Acute renal failure - Ischemic ATN -Dialysis was started through [facility] central line, creatinine and electrolytes improved - HD treatment 06/16 via non tunneled catheter and removed with plan for permacath placement but at this point declined and moved to comfort care as above with no plans for future HD - Medications were appropriately dosed for kidney function Cirrhosis -Patient had history of liver cirrhosis thought to be secondary to EtOH abuse. Child Class B, MELD score =11. -Anasarca. Patient has been on multiple courses of Prednisone over the past month which was most likely contributing to fluid retention. -No sign of decompensated cirrhosis. Total Time Total Time Spent Total Time Spent (In Minutes): 40 Discharge Plan Discharge Items Patient Disposition: Admission Data Admit Date/Time: 06/02/18 12:49 Attending Provider: Vicky Morgan Admit Provider: Tatyana Ferrari Primary Care Provider: Erma Santos Other Providers: Steve Pritchett ; Fadi Boyd ; Tatyana Ferrari ; Patel Slater ; Dominic Almanzar ; Jumana Quinones ; Manpreet Shaver ; Afsaneh Ackerman ; Nick Cerna ; Prakash Valenzuela ; Jacob Carias ; Carol Balderas ; Fernie Echeverria ; Padmaja Callahan Service: Medical Other DC Date/Time DO NOT enter until pt leaves facility: 06/19/18 13:34
== END 2018-06-19 13:34 | disposition expired | DRG 166 ==
LOC: ED 10:12 → SUATTDRO 12:49 → 2E 12:49 → 1E 06-04 06:08 → 2N 06-05 15:19 → 1E 06-10 06:12 → 2E 06-16 13:05 → 4E 06-18 16:42
DX: J96.00 Acute respiratory failure, unspecified whether with hypoxia or hypercapnia; I49.01 Ventricular fibrillation; E66.01 Morbid (severe) obesity due to excess calories; J44.9 Chronic obstructive pulmonary disease, unspecified; N17.0 Acute kidney failure with tubular necrosis; Z51.5 Encounter for palliative care; I48.2 Chronic atrial fibrillation; R34 Anuria and oliguria; I13.0 Hypertensive heart and chronic kidney disease with heart failure and stage 1 through stage 4 chronic kidney disease, or unspecified chronic kidney disease; Z85.05 Personal history of malignant neoplasm of liver; D62 Acute posthemorrhagic anemia; M84.48XA Pathological fracture, other site, initial encounter for fracture; R06.03 Acute respiratory distress; Z68.41 Body mass index [BMI] 40.0-44.9, adult; R18.8 Other ascites; J90 Pleural effusion, not elsewhere classified; Z79.52 Long term (current) use of systemic steroids; F10.21 Alcohol dependence, in remission; I50.9 Heart failure, unspecified; R57.0 Cardiogenic shock; E87.1 Hypo-osmolality and hyponatremia; K70.30 Alcoholic cirrhosis of liver without ascites